=== PATIENT | male | born 1955 ===

== ENCOUNTER 2019-11-15 07:26 | Outpatient (REF) | payer MEDICARE, SELFPAY ==
[2019-11-15 12:03] LABS: Alanine Aminotransferase 21 U/L (0-40); Albumin Level 4.4 g/dL (3.5-5.0); Alkaline Phosphatase 91 U/L (39-117); Anion Gap 14 (12-20); Aspartate Amino Transferase 24 U/L (5-37); Bilirubin Total 0.5 mg/dL (0.0-1.0); Blood Urea Nitrogen 23 mg/dL (9-16); Calcium 9.1 mg/dL (8.4-10.2); Carbon Dioxide 29 mmol/L (22-29); Chloride 102 mmol/L (96-108); Cholesterol 124 mg/dL; Estimated Glomerular Filt Rate > 60; Glucose Fasting 97 mg/dL (60-99); HDL Cholesterol 52 mg/dL; LDL Cholesterol Calculated 58 mg/dl; Potassium 4.5 mmol/l (3.3-5.1); Sodium 140 mmol/L (135-145); Total Protein 7.3 g/dL (6.5-8.0); Triglycerides 71 mg/dL
[2019-11-15 12:13] LABS: TSH reflex Free T4 1.03 mIU/mL (0.32-4.0)
== END 2019-11-15 07:27 | disposition home or self-care (01) ==
LOC: HO.HMGCLDS 07:26
PROVIDERS: PCP Nurse Practitioner Family; Visit Provider Nurse Practitioner Family
DX: I10 Essential (primary) hypertension (principal)
CPT/HCPCS: 36415; 80053; 80061; 84443

== ENCOUNTER 2019-11-29 11:12 | Day surgery (SDC) | payer MEDICARE, SELFPAY ==
[2019-11-24 16:20] VITALS: BMI 37.2
--- NOTE | 2019-11-25 10:53 | HO.ANESPROP2 ---
Documented by User: Jessa Oliveira 11/26/19 10:15 HPI - Anesthesia Eval Consult details Narrative: 64yo M for Colonoscopy: Screening [facility], [facility] Past Medical History Medical History AAA (abdominal aortic aneurysm) Anemia Anxiety and depression BPH (benign prostatic hyperplasia) CAD (coronary artery disease) Diverticulosis GERD (gastroesophageal reflux disease) History of cardioversion Hx of skin cancer, basal cell Hyperlipemia Hypertension PAF (paroxysmal atrial fibrillation) PTSD (post-traumatic stress disorder) Sleep apnea Surgical History Surgical History H/O umbilical hernia repair History of cardiac radiofrequency ablation History of esophagogastroduodenoscopy (EGD) History of incision and drainage History of total left hip arthroplasty Hx of cardiac catheterization Hx of colonoscopy Hx of right knee surgery Hx of tonsillectomy Social History Social History Smoking Status: Former smoker Smoking Quit Date: 2011 Substance Use Frequency: Occasionally Advance Directives: No Advance Directives Information Provided: No Advance Directives on File: No Meds Allergies Allergy/AdvReac Type Severity Reaction Status Date / Time morphine [MORPHINE] Allergy Intermediate ANXIETY,AGITATION, Unverified 10/28/19 14:39 severe aggitation Home Medications Medication Instructions Recorded Confirmed Type lisinopril 10 mg PO DAILY 11/24/19 11/29/19 History omeprazole 20 mg PO DAILY 11/24/19 11/24/19 History rosuvastatin 1 tab PO DAILY 11/24/19 11/24/19 History Exam Exam Date and Time: November 25, 2019 1053 Height,Weight and Vital Signs: Height 6 ft 2 in Weight 131.542 kg Pertinent Lab Results Pertinent Lab Results: Laboratory Tests 07/13/19 11/15/19 10:12 07:38 WBC 8.1 Hgb 13.4 L Hct 40.0 L Plt Count 259 Sodium 140 Potassium 4.5 Chloride 102 Carbon Dioxide 29 BUN 23 H Creatinine 0.83 Narrative Narrative: EKG 08/2019: NSR with PAC, nonspec ST abn with QTC @437 ECHO 08/2019: LVEF 60-65%, mild LVH, impaired relax, mild biatrial enlargement, trivial AR Assessment and Plan Assessment Anesthesia Assessment: Chart Reviewed Documented by User: Allie Benz 11/29/19 12:31 PMFSH Past Medical History Medical History AAA (abdominal aortic aneurysm) Anemia Anxiety and depression BPH (benign prostatic hyperplasia) CAD (coronary artery disease) Diverticulosis GERD (gastroesophageal reflux disease) History of cardioversion Hx of skin cancer, basal cell Hyperlipemia Hypertension PAF (paroxysmal atrial fibrillation) PTSD (post-traumatic stress disorder) Sleep apnea Surgical History Surgical History H/O umbilical hernia repair History of cardiac radiofrequency ablation History of esophagogastroduodenoscopy (EGD) History of incision and drainage History of total left hip arthroplasty Hx of cardiac catheterization Hx of colonoscopy Hx of right knee surgery Hx of tonsillectomy Social History Social History Smoking Status: Former smoker Smoking Quit Date: 2011 Substance Use Frequency: Occasionally Advance Directives: No Advance Directives Information Provided: No Advance Directives on File: No Meds Allergies Allergy/AdvReac Type Severity Reaction Status Date / Time morphine [MORPHINE] Allergy Intermediate ANXIETY,AGITATION, Unverified 10/28/19 14:39 severe aggitation Home Medications Medication Instructions Recorded Confirmed Type lisinopril 10 mg PO DAILY 11/24/19 11/29/19 History omeprazole 20 mg PO DAILY 11/24/19 11/24/19 History rosuvastatin 1 tab PO DAILY 11/24/19 11/24/19 History Exam Airway Mallampati Class: III TM Dist: >3cm Neck ROM: Full Denture: Upper
[2019-11-29 11:37] VITALS: BP 106/76; PULSE 73; RESP 18; TEMP 36.8; O2SAT 97
[2019-11-29] MEDS: Lactated Ringers 1,000 ML 50 ML IVCONT (11:59)
[2019-11-29 13:34] VITALS: BP 103/62; PULSE 74; RESP 16; TEMP 36.7; O2SAT 96
--- NOTE | 2019-11-29 13:47 | OP_ITS ---
SURGEON: Gamaliel Abernathy MD INDICATIONS: The patient presents for followup of colorectal cancer screening, personal history of tubular adenoma of the colon, and family history of colon cancer. Full consent has been obtained from him for this, including risks of bleeding and perforation. PREOPERATIVE DIAGNOSIS: POSTOPERATIVE DIAGNOSIS: PROCEDURE PERFORMED: Colonoscopy to cecum and terminal ileum. ESTIMATED BLOOD LOSS: COMPLICATIONS: ANESTHESIA: Monitored anesthesia care. ASSISTANTS: SPECIMENS: PREOPERATIVE DIAGNOSES: Colorectal cancer screening, personal history of tubular adenoma of the colon, family history of colon cancer. POSTOPERATIVE DIAGNOSES: Colorectal cancer screening, personal history of tubular adenoma of the colon, family history of colon cancer, diverticulosis and internal hemorrhoids. DESCRIPTION OF PROCEDURE: The patient was placed in the left lateral decubitus position. The digital rectal exam revealed no abnormalities. The Olympus video pediatric colonoscope was entered into the rectum and advanced easily to the cecum. Once in the cecum, I did identify normal-appearing cecal pouch with appendiceal orifice and a normal-appearing ileocecal valve. The terminal ileum was cannulated and appeared normal. The scope was withdrawn back in the colon. The entire cecum and ileocecal valve appeared normal. The scope was slowly withdrawn assessing all mucosal surfaces carefully. For the most part, preparation was very good throughout the colon, although there were some areas of liquid stool, which were irrigated and washed away and suctioned as best as possible. I did not visualize any sign of polyps, colitis, nor angiodysplasia. There was a mild amount of sigmoid diverticulosis. In the rectum, scope was retroflexed visualizing small internal hemorrhoids, but no other pathology. The rectal mucosa appeared normal. The scope was straightened and withdrawn from the patient. He tolerated the procedure well and was returned to the recovery area in stable condition. IMPRESSION: 1. Mild sigmoid diverticulosis. 2. Internal hemorrhoids. PLAN: Given his previous history of tubular adenomas and family history of colon cancer, I would recommend a followup colonoscopy in 5 years for further screening. He will otherwise see me on a p.r.n. basis. He was advised to resume his Eliquis today. This has been discussed with his . MD VERITO Valderrama/TIFFANY / [phone]
[2019-11-29 13:49] VITALS: BP 121/81; PULSE 77; RESP 17; O2SAT 98
--- NOTE | 2019-11-29 14:08 | HO.POSTANES ---
Post Anesthesia Evaluation Post Anesthesia Evaluation Vital Signs: Vital Signs Temp Pulse Resp BP Pulse Ox 11/29/19 13:49 98.0 F 77 17 121/81 98 11/29/19 13:34 98.0 F 74 16 103/62 96 11/29/19 11:37 98.3 F 73 18 106/76 97 Anesthesia: Monitored Mental Status: Awake Pain Control: Satisfactory Nausea/Vomiting: None Hydration: Adequate Anesthesia-Related Issues: No Anes. Related Issues
--- NOTE | 2019-11-29 15:36 | PM.OP ---
Brief Operative Note Date of procedure: 11/29/19 Pre-op diagnosis: Screening Post-op diagnosis: other (Diverticulosis, Internal hemorrhoids) Procedure: Colonoscopy to cecum and TI Surgeon: Gamaliel Abernathy Anesthesia: MAC Estimated blood loss (mL): 5.0 Pathology: none sent Condition: stable Disposition: PACU
== END 2019-11-29 14:46 | disposition home or self-care (01) ==
PROVIDERS: PCP Nurse Practitioner Family; Visit Provider Internal Medicine
PROC: 0DJD8ZZ Inspection of Lower Intestinal Tract, Via Natural or Artificial Opening Endoscopic (ICD-10-PCS; CPT 45378; principal; 2019-11-29 12:20)
DX: Z12.11 Encounter for screening for malignant neoplasm of colon (principal); Z86.010 Personal history of colon polyps; Z80.0 Family history of malignant neoplasm of digestive organs; K57.30 Diverticulosis of large intestine without perforation or abscess without bleeding; K64.8 Other hemorrhoids; K21.9 Gastro-esophageal reflux disease without esophagitis; I10 Essential (primary) hypertension; E78.5 Hyperlipidemia, unspecified; I48.0 Paroxysmal atrial fibrillation; G47.33 Obstructive sleep apnea (adult) (pediatric); Z88.8 Allergy status to other drugs, medicaments and biological substances; Z79.01 Long term (current) use of anticoagulants; Z85.828 Personal history of other malignant neoplasm of skin; Z87.891 Personal history of nicotine dependence; Z79.899 Other long term (current) drug therapy
CPT/HCPCS: G0105

== ENCOUNTER → 2019-12-10 08:47 | Outpatient (BNVA) | payer MEDICARE, SELFPAY | PROVIDERS: PCP Nurse Practitioner Family; Referring Provider Nurse Practitioner Family; Visit Provider Internal Medicine Cardiovascular Disease | DX: I48.0 Paroxysmal atrial fibrillation (principal) | CPT/HCPCS: 93005 ==

== ENCOUNTER → 2020-02-29 08:12 | Outpatient (BNVA) | payer MEDICARE, SELFPAY | PROVIDERS: PCP Nurse Practitioner Family; Visit Provider Internal Medicine Cardiovascular Disease | DX: I48.0 Paroxysmal atrial fibrillation (principal); I25.10 Atherosclerotic heart disease of native coronary artery without angina pectoris; I10 Essential (primary) hypertension | CPT/HCPCS: 93005; 99212 ==

== ENCOUNTER 2020-03-01 10:33 | Outpatient (REF) | payer MEDICARE, SELFPAY ==
--- NOTE | 2020-03-01 10:42 | US_ITS ---
EXAMINATION: US VENOUS ULTRASOUND WITH DOPPLER LOWER EXTREMITY, BILATERAL CLINICAL INFORMATION: Localized swelling, mass and lump COMPARISON: None TECHNIQUE: Ultrasound of the deep veins is performed from the hip to the calf with compression sonography and color and pulse Doppler assessment. Spectral analysis with color-flow imaging is performed. FINDINGS: RIGHT: There is normal venous compression and respiratory variation and augmented flow. The visualized common femoral vein, superficial femoral vein, profunda femoral vein, popliteal vein, and the trifurcation region shows no evidence of deep venous thrombosis. There is no significant popliteal fossa cyst. LEFT: There is normal venous compression and respiratory variation and augmented flow. The visualized common femoral vein, superficial femoral vein, profunda femoral vein, popliteal vein, and the trifurcation region shows no evidence of deep venous thrombosis. There is no significant popliteal fossa cyst. No ultrasound abnormality is seen in the area of palpable abnormality in the lateral left upper thigh. US/US venous duplex LE BI IMPRESSION: No DVT demonstrated in the bilateral lower extremity.
== END 2020-03-01 10:34 | disposition home or self-care (01) ==
LOC: HO.HMGCX 10:33
PROVIDERS: PCP Nurse Practitioner Family; Visit Provider Nurse Practitioner Family
DX: R22.40 Localized swelling, mass and lump, unspecified lower limb (principal)
CPT/HCPCS: 93970

== ENCOUNTER 2020-08-05 09:53 | Emergency (ER) | payer OTHER, MEDICARE, SELFPAY ==
--- NOTE | ~2020-08-05 | XR_ITS ---
EXAMINATION: XR CHEST CLINICAL INFORMATION: Chest pain. COMPARISON: None TECHNIQUE: 2 views of the chest were obtained. FINDINGS: No significant abnormality is noted involving the heart, lungs, mediastinum, bony thorax or soft tissues. XR/XR chest 2V IMPRESSION: Unremarkable chest examination.
[2020-08-05 09:55] VITALS: BP 141/66; PULSE 86; RESP 18; TEMP 36.6; O2SAT 98; BMI 38.0
--- NOTE | 2020-08-05 10:00 | ECG_ITS ---
Test Reason : CP Blood Pressure : / mmHG Vent. Rate : 079 BPM Atrial Rate : 079 BPM P-R Int : 162 ms QRS Dur : 092 ms QT Int : 396 ms P-R-T Axes : 011 036 027 degrees QTc Int : 454 ms Normal sinus rhythm Normal ECG No previous ECGs available Referred By: Yaima Mckay Electronically Signed By:Prieto Escalona
--- NOTE | 2020-08-05 10:01 | ED.ARRPALP ---
HPI - Arrhythmia/Palpitations General Chief Complaint: Arrhythmia/Palpitations Stated Complaint: CHEST STING DOWN L LEG Time Seen by Provider: 08/05/20 09:59 Source: patient Mode of arrival: ambulatory Limitations: no limitations History of Present Illness HPI narrative: 64 yo male with past medical history of GERD, HTN, afib on eliquis, HLD, anemia, anxiety, depression, PTSD, VIDYA, AAA here with complaints of episodes of chest stinging x 1 hr which started when he was working in the yard. Five episodes which come on and last a second and self-resolve. No associated SOB, nasuea, diaphoresis, dizziness, chest pain or abdominal pain. Does have chronic back pain which is lower and unchanged from previous. Also c/o of left upper thigh pinching which patients has had intermittent for months with a negative US for DVT. No recent travel, no sick contact. Fully vaccinated in April for COVID with Moderna. Related Data Home Medications Medication Instructions Recorded Confirmed lisinopril 10 mg PO DAILY 11/24/19 02/29/20 omeprazole 20 mg PO DAILY 11/24/19 02/29/20 Previous Rx's Medication Instructions Recorded apixaban 5 mg tablet 5 mg PO BID 90 Days #180 tab 11/26/19 sertraline 50 mg tablet 50 mg PO DAILY 90 Days #90 tab 11/28/19 CPAP #1 ea 12/30/19 dronedarone 400 mg tablet 400 mg PO BID #180 tab 01/25/20 cyclobenzaprine 10 mg tablet 10 mg PO TID PRN #20 tab 03/01/20 rosuvastatin 20 mg tablet 20 mg PO DAILY #90 tab 03/10/20 Allergies Allergy/AdvReac Type Severity Reaction Status Date / Time morphine [MORPHINE] Allergy Intermediate ANXIETY,AGITATION, Verified 03/02/20 11:01 severe aggitation Review of Systems Review of Systems: Yes all other systems are reviewed and are negative Constitutional: Constitutional: Reports no additional constitutional complaints, Denies body ache(s), Denies chills, Denies fever(s), Denies headache(s) and Denies weakness Eyes: Eyes: Reports no additional eye complaints and Denies change in vision ENT: Reports system reviewed and no additional complaints, except as documented, Denies dizziness, Denies headache(s), Denies nasal congestion, Denies nasal discharge and Denies neck pain Cardiovascular: Cardiovascular: Reports no additional cardiovascular complaints, Reports chest pain, Denies leg edema and Denies dyspnea Respiratory: Respiratory: Reports no additional respiratory complaints, Denies cough and Denies dyspnea Gastrointestinal: Gastrointestinal: Reports no additional gastrointestinal complaints, Denies abdominal pain, Denies diarrhea, Denies nausea and Denies vomiting Genitourinary: Genitourinary: Denies urinary incontinence Musculoskeletal: Musculoskeletal: Reports no additional musculoskeletal complaints, Reports back pain, Denies arthralgias, Denies joint swelling, Denies neck pain, Denies numbness and Denies tingling Comments: leg pain Integumentary/Breasts: Skin/Breast: Reports system reviewed and no additional complaints, except as docu and Denies rash Neurologic: Reports system reviewed and no additional complaints, except as documented, Denies Abnormal speech present, Denies dizziness, Denies headache(s), Denies numbness, Denies tingling and Denies weakness PMFSH Past Medical History Attestation statement: The following information was validated with the patient. Source: old records reviewed and nursing notes reviewed Medical History AAA (abdominal aortic aneurysm) Anemia Anxiety and depression BPH (benign prostatic hyperplasia) CAD (coronary artery disease) Diverticulosis GERD (gastroesophageal reflux disease) History of cardioversion Hx of skin cancer, basal cell Hyperlipemia Hypertension PAF (paroxysmal atrial fibrillation) PTSD (post-traumatic stress disorder) Skin cancer Sleep apnea Surgical History H/O umbilical hernia repair History of cardiac radiofrequency ablation History of esophagogastroduodenoscopy (EGD) History of incision and drainage History of total left hip arthroplasty Hx of cardiac catheterization Hx of colonoscopy Hx of right knee surgery Hx of tonsillectomy Family History Family History Father Esophageal cancer Mother Esophageal cancer Social History Social History Advance Directives: Yes Advance Directives Information Provided: No Advance Directives on File: No Physical Exam Vital Signs: Vital Signs: Last Vital Signs Temp 98.5 F 08/05/20 14:00 Pulse 63 08/05/20 14:00 Resp 18 06/26/21 14:00 BP 125/67 08/05/20 14:00 Pulse Ox 98 08/05/20 14:00 Body Mass Index 38.0 Const: General: cooperative, healthy appearing, comfortable and no acute distress Orientation/consciousness: patient oriented x3 Limitations: no limitations HENMT: Head: Yes normal to inspection Ears: hearing grossly normal bilaterally General nose exam: Normal external nose present Face and sinus: Yes normal facial exam Mouth: Normal oral and palatal mucosa present Throat: Yes posterior oropharynx normal Eyes: General: appearance normal, both eyes and all related structures Pupils: Equal, round and reactive pupils present Neck: Neck: Yes normal visual inspection Chest: Chest palpation & inspection: normal inspection of the chest Resp: Effort & Inspection: normal respiratory effort Auscultation: clear to auscultation bilaterally Cardio: Rate: regular rate Rhythm: regular rhythm Peripheral pulses: Peripheral pulses 2+ throughout GI: Inspection: Yes normal to inspection Palpation (GI): Soft to palpation and nontender Auscultation: normal bowel sounds Back/Spine/Pelvis: Thoracic/Lumbar Spine: thoracic and lumbar spine normal to inspection Skin: General skin exam: no rashes or lesions noted Neuro: General: patient oriented x3, no focal motor deficits and normal sensation to monofilament Cranial nerves: Yes Equal, round and reactive pupils present Cognition (Neuro): normal cognition Speech: No Abnormal speech present Gait exam (Neuro): Normal gait present Motor exam (neuro): 5/5 motor strength present throughout Extrem: General: Yes normal to inspection, Yes no pedal edema and Yes no calf tenderness Course Course Course Narrative: 64 yo male here with complaints of intermittent chest pain described as a sting x 1 hr. No associated symptoms. Also c/o chronic low back pain, left upper thigh pain for > 1yr in the setting of recent negative US for DVT. Will need labs including troponin x 2, EKG, CXR. 1400-Troponin x 2 flat. All other labs unremarkable. CXR and EKG with no acute finding. No additional episodes here in the ER. Reviewed worrisome signs symptoms of when to return to the emergency department. Comfortable discharge home. MDM - Arrhythmia/Palpitations MDM Narrative Medical decision making narrative: acs- Less likely with atypical pain, troponin x2 flat and negative EKG Differential Diagnosis Differential diagnosis: Likely palpitations, anxiety and artial fibrillation Medical Records Attestation: I reviewed the patient's medical records. Lab Data Attestation: I reviewed the patient's lab results. Result diagrams: 08/05/20 10:37 08/05/20 10:36 Labs: Lab Results 08/05/20 08/05/20 08/05/20 Range/Units 10:36 10:36 10:36 WBC (4.8-10.8) X10*3/uL RBC (4.60-5.80) X10*6/uL Hgb (14.0-18.0) g/dl Hct (42-52) % MCV (80-98) fL MCH (27.0-33.0) pg MCHC (31.0-36.0) g/dl RDW (11.0-16.0) % Plt Count (160-400) X10*3/uL MPV (9.4-12.4) fL Immature Gran % (Auto) (0.0-0.4) % Neut % (Auto) (45-73) % Lymph % (Auto) (20-40) % [place] % (Auto) (2-11) % Eos % (Auto) (0-4) % Baso % (Auto) (0-2) % Lymph # (Auto) (1.2-4.9) X10*3/uL [place] # (Auto) (0.1-1.2) X10*3/uL Eos # (Auto) (0.0-0.4) X10*3/uL Baso # (Auto) (0.0-0.2) X10*3/uL Abs Immat Gran (auto) (0.00-0.03) X10*3/uL Absolute Neuts (auto) (2.0-8.3) X10*3/uL Absolute Nucleated RBC (0.0-0.012) X10*3/uL Nucleated RBC % (auto) (0.0-0.2) /100WBC PT 14.7 H (10.8-13.0) SEC INR 1.2 H (0.9-1.1) Sodium 139 (135-145) mmol/L Potassium 4.0 (3.3-5.1) mmol/L Chloride 104 (96-108) mmol/L Carbon Dioxide 30 H (22-29) mmol/L Anion Gap 9 L (12-20) BUN 18 H (9-16) mg/dL Creatinine 0.77 (0.5-1.4) mg/dL Estim Creat Clear Calc 137.5 Estimated GFR > 60 Random Glucose 128 H (60-115) mg/dL Calcium 9.1 (8.4-10.2) mg/dL Magnesium 1.8 (1.6-2.6) mg/dL Total Bilirubin 0.3 (0.0-1.0) mg/dL Direct Bilirubin < 0.2 (0.0-0.5) mg/dL AST 19 (5-37) U/L ALT 15 (0-40) U/L Alkaline Phosphatase 81 (39-117) U/L Troponin I High Sens (<3.5-35.0) ng/L Total Protein 6.8 (6.5-8.0) g/dL Albumin 4.1 (3.5-5.0) g/dL 08/05/20 08/05/20 08/05/20 Range/Units 10:36 10:37 13:18 WBC 7.5 (4.8-10.8) X10*3/uL RBC 4.00 L (4.60-5.80) X10*6/uL Hgb 12.3 L (14.0-18.0) g/dl Hct 37.1 L (42-52) % MCV 92.8 (80-98) fL MCH 30.8 (27.0-33.0) pg MCHC 33.2 (31.0-36.0) g/dl RDW 13.1 (11.0-16.0) % Plt Count 229 (160-400) X10*3/uL MPV 9.8 (9.4-12.4) fL Immature Gran % (Auto) 0.4 (0.0-0.4) % Neut % (Auto) 66.2 (45-73) % Lymph % (Auto) 25.4 (20-40) % [place] % (Auto) 6.7 (2-11) % Eos % (Auto) 0.8 (0-4) % Baso % (Auto) 0.5 (0-2) % Lymph # (Auto) 1.9 (1.2-4.9) X10*3/uL [place] # (Auto) 0.5 (0.1-1.2) X10*3/uL Eos # (Auto) 0.1 (0.0-0.4) X10*3/uL Baso # (Auto) 0.0 (0.0-0.2) X10*3/uL Abs Immat Gran (auto) 0.03 (0.00-0.03) X10*3/uL Absolute Neuts (auto) 4.9 (2.0-8.3) X10*3/uL Absolute Nucleated RBC 0.000 (0.0-0.012) X10*3/uL Nucleated RBC % (auto) 0.0 (0.0-0.2) /100WBC PT (10.8-13.0) SEC INR (0.9-1.1) Sodium (135-145) mmol/L Potassium (3.3-5.1) mmol/L Chloride (96-108) mmol/L Carbon Dioxide (22-29) mmol/L Anion Gap (12-20) BUN (9-16) mg/dL Creatinine (0.5-1.4) mg/dL Estim Creat Clear Calc Estimated GFR Random Glucose (60-115) mg/dL Calcium (8.4-10.2) mg/dL Magnesium (1.6-2.6) mg/dL Total Bilirubin (0.0-1.0) mg/dL Direct Bilirubin (0.0-0.5) mg/dL AST (5-37) U/L ALT (0-40) U/L Alkaline Phosphatase (39-117) U/L Troponin I High Sens 5.7 5.2 (<3.5-35.0) ng/L Total Protein (6.5-8.0) g/dL Albumin (3.5-5.0) g/dL Imaging Data Chest x-ray: Attestation: I personally reviewed and interpreted this imaging study as follows: Radiologist's impression: EXAMINATION: XR CHEST CLINICAL INFORMATION: Chest pain. COMPARISON: None TECHNIQUE: 2 views of the chest were obtained. FINDINGS: No significant abnormality is noted involving the heart, lungs, mediastinum, bony thorax or soft tissues. XR/XR chest 2V IMPRESSION: Unremarkable chest examination. ECG Data Attestation: I personally reviewed and interpreted this ECG as follows: ECG interpretation date: 08/05/20 ECG interpretation time: 10:09 Interpretation: Normal sinus rhythm with a rate of 79, normal [place], normal QRS, normal QTC Discharge Plan Discharge Clinical Impression: Atypical chest pain Patient Disposition: Home, Self-Care Instructions: Chest Wall Pain (ED) Additional Instructions: Your chest x-ray, EKG and labs are all unremarkable. Follow-up with your PCP Prescriptions: No Action Eliquis 5 mg tablet 5 mg PO BID 90 Days Qty: 180 RF: 3 sertraline 50 mg tablet 50 mg PO DAILY 90 Days Qty: 90 RF: 2 (DME) CPAP See Rx Instructions .Route .MEDSUPPLY Qty: 1 RF: 0 dronedarone [Multaq] 400 mg tablet 400 mg PO BID Qty: 180 RF: 1 cyclobenzaprine 10 mg tablet 10 mg PO TID PRN (Reason: muscle spasm) Qty: 20 RF: 0 rosuvastatin 20 mg tablet 20 mg PO DAILY Qty: 90 RF: 1 lisinopril 10 mg Tablet 10 mg PO DAILY RF: 0 omeprazole 20 mg Tablet,Delayed Release (Dr/Ec) 20 mg PO DAILY RF: 0 Referrals: Vijay Jaramillo FNP-DAYO [Primary Care Provider] - 2 days Cristopher Schuster MD [Physician] - 2 weeks (as scheduled ) Interventions: ED Discharge Assessment Last Done: 08/05/20 14:04
[2020-08-05 10:41] LABS: MANUAL DIFF FLAG NO
[2020-08-05 10:49] LABS: INTERNATIONAL NORM RATIO 1.2 (0.9-1.1); Prothrombin Time 14.7 SEC (10.8-13.0)
[2020-08-05 10:51] LABS: Basophils Percent Auto 0.5 % (0-2); Eosinophils Absolute Auto 0.1 X10*3/uL (0.0-0.4); Eosinophils Percent Auto 0.8 % (0-4); Hematocrit 37.1 % (42-52); Hemoglobin 12.3 g/dl (14.0-18.0); Imm Gran Abs Auto 0.03 X10*3/uL (0.00-0.03); Imm Gran Pct Auto 0.4 % (0.0-0.4); Lymphocytes Absolute Auto 1.9 X10*3/uL (1.2-4.9); Lymphocytes Percent Auto 25.4 % (20-40); Mean Corpuscular HGB Conc 33.2 g/dl (31.0-36.0); Mean Corpuscular Hemoglobin 30.8 pg (27.0-33.0); Mean Corpuscular Volume 92.8 fL (80-98); Mean Platelet Volume 9.8 fL (9.4-12.4); Monocytes Absolute Auto 0.5 X10*3/uL (0.1-1.2); Monocytes Percent Auto 6.7 % (2-11); Neutrophils Absolute Auto 4.9 X10*3/uL (2.0-8.3); Neutrophils Percent Auto 66.2 % (45-73); Platelet Count 229 X10*3/uL (160-400); Red Cell Distribution Width 13.1 % (11.0-16.0); White Blood Count 7.5 X10*3/uL (4.8-10.8)
[2020-08-05 11:16] LABS: Magnesium 1.8 mg/dL (1.6-2.6)
[2020-08-05 11:19] VITALS: BP 113/55; PULSE 69; RESP 19; TEMP 36.7; O2SAT 95
[2020-08-05 11:19] LABS: Troponin-I High Sensitivity 5.7 ng/L (<3.5-35.0)
[2020-08-05 11:20] LABS: Alanine Aminotransferase 15 U/L (0-40); Albumin Level 4.1 g/dL (3.5-5.0); Alkaline Phosphatase 81 U/L (39-117); Anion Gap 9 (12-20); Aspartate Amino Transferase 19 U/L (5-37); Bilirubin Direct < 0.2 mg/dL (0.0-0.5); Bilirubin Total 0.3 mg/dL (0.0-1.0); Blood Urea Nitrogen 18 mg/dL (9-16); Calcium 9.1 mg/dL (8.4-10.2); Carbon Dioxide 30 mmol/L (22-29); Chloride 104 mmol/L (96-108); Creatinine Clr Calc Pharmacy 137.5; Estimated Glomerular Filt Rate > 60; Glucose Random 128 mg/dL (60-115); Sodium 139 mmol/L (135-145); Total Protein 6.8 g/dL (6.5-8.0)
[2020-08-05 12:43] VITALS: BP 125/67; PULSE 64; RESP 18; TEMP 36.8; O2SAT 96
[2020-08-05 13:58] LABS: Troponin-I High Sensitivity 5.2 ng/L (<3.5-35.0)
[2020-08-05 14:00] VITALS: BP 125/67; PULSE 63; RESP 18; TEMP 36.9; O2SAT 98
== END 2020-08-05 14:36 | disposition home or self-care (01) ==
PROVIDERS: Nurse Practitioner Family; Emergency Provider Emergency Medicine; PCP Nurse Practitioner Family
DX: R07.89 Other chest pain (principal); M79.652 Pain in left thigh; I10 Essential (primary) hypertension; I25.10 Atherosclerotic heart disease of native coronary artery without angina pectoris; I48.0 Paroxysmal atrial fibrillation; D64.9 Anemia, unspecified; Z79.01 Long term (current) use of anticoagulants; Z79.899 Other long term (current) drug therapy
CPT/HCPCS: 36415; 71046; 80048; 80076; 83735; 84484; 85025; 85610; 93005; 99284

== ENCOUNTER 2020-08-30 07:54 | Outpatient (REF) | payer MEDICARE, SELFPAY ==
--- NOTE | ~2020-08-30 | XR_ITS ---
EXAMINATION: XR LUMBOSACRAL SPINE CLINICAL INFORMATION: M54.5 - Low back pain COMPARISON: Radiographs lumbar spine 03/07/2015 TECHNIQUE: Three views of the lumbosacral spine. FINDINGS: There are 5 nonrib-bearing lumbar vertebrae within normal height and with normal lumbar lordosis. There is mild dextrocurvature upper lumbar spine again noted. There is no lumbar vertebral compression or destructive process. Again, there are multilevel degenerative changes with endplate sclerosis and multilevel vertebral body spurring. Degenerative disc changes are greatest at L5-S1 with disc narrowing and endplate sclerosis and bridging osteophyte and also present at L1-L2 and L2-L3. There is mild facet degeneration L4-S1. There is borderline grade 0-1 spondylolisthesis at L4-L5, new since 2016, likely related to the degenerative changes. The SI joints and visualized sacrum are unremarkable. XR/XR lumbar spine 2-3V IMPRESSION: 1. Multilevel degenerative disc changes, lower lumbar facet degeneration. 2. Borderline grade 0-1 spondylolisthesis L4-L5. 3. No vertebral compression or destructive process.
== END 2020-08-30 07:55 | disposition home or self-care (01) ==
LOC: HO.HMGCX 07:54
PROVIDERS: PCP Nurse Practitioner Family; Visit Provider Nurse Practitioner Family
DX: M54.5 Low back pain (principal)
CPT/HCPCS: 72100

== ENCOUNTER → 2020-08-31 12:58 | Outpatient (BNVA) | payer MEDICARE, SELFPAY | PROVIDERS: PCP Nurse Practitioner Family; Referring Provider Nurse Practitioner Family; Visit Provider Internal Medicine Cardiovascular Disease | DX: I48.0 Paroxysmal atrial fibrillation (principal); I25.10 Atherosclerotic heart disease of native coronary artery without angina pectoris; I10 Essential (primary) hypertension; Z79.899 Other long term (current) drug therapy | CPT/HCPCS: 93005; 99212 ==

== ENCOUNTER 2020-09-28 07:00 | Outpatient (RCR) | payer MEDICARE, SELFPAY ==
--- NOTE | 2020-09-05 08:11 | MHC.PT.EP ---
[facility] [place] Office [place] Office [place] Office [address] Aletha Burrell [address] [phone] F: [phone] F: [phone] F: [phone] F: [phone] Physical Therapy Plan of Care Date of Evaluation: Date of Surgery: Diagnosis: low back pain - left sided. Assessment: Patient is a 64 year old R handed male who presents with s/s consistent with low back pain. He is retired but does stay active in yard and at the gym. He is trying to lose weight and manage his health well. Patient past medical history includes AFib, blood thinners, CHF, skin cancer, AAA, cardiac ablation. Current impairments include pain, ROM, strength, safety, independence, activity tolerance and functional mobility. Functional limitations include decreased ability to walk, stand, transfer, negotiate stairs, and perform weight bearing activities.. Patient is motivated with good rehab potential. Skilled PT will address impairments and functional limitations in order to achieve goals. 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 Manual therapy to restore motion and function. Therapeutic exercise to improve strength and flexibility. Neuromuscular re-education for posture and balance. Therapeutic activities to return to functional activities of daily living. Electronically signed by: Adán Faust, PT Please sign and return to therapist. Thank you for your referral.
--- NOTE | 2021-01-16 13:31 | MHC.PT.DC ---
[facility] [place] Office [place] Office [place] Office [address] Aletha Burrell [address] [phone] F: [phone] F: [phone] F: [phone] F: [phone] Physical Therapy Discharge Report Diagnosis: low back pain - left sided. Date of Surgery: Date of Evaluation: 09/05/20 Date of Discharge: 09/28/20 Treatments to Date: 3 Cancellations to Date: 0 No Shows to Date: 0 Discharge Status: Independent with HEP Discharge Summary: 09/28/20: Pt progressed well over the course of skilled PT making progress on impairments and functional limitations resulting in an improved quality of life. Pt is I with HEP and appropriate to d/c to HEP at this time. Electronically signed by: Adán Faust, PT Please sign and return to therapist. Thank you for your referral.
== END 2021-01-16 13:31 | disposition home or self-care (01) ==
LOC: HO.PTCHIC 07:00
PROVIDERS: PCP Nurse Practitioner Family; Visit Provider Nurse Practitioner Family
DX: M54.5 Low back pain (principal)
CPT/HCPCS: 97110; 97162

== ENCOUNTER → 2020-11-23 08:54 | Outpatient (BNVA) | payer MEDICARE, SELFPAY | PROVIDERS: PCP Nurse Practitioner Family; Referring Provider Nurse Practitioner Family; Visit Provider Internal Medicine Cardiovascular Disease ==

== ENCOUNTER → 2021-02-27 08:08 | Outpatient (BNVA) | payer MEDICARE, SELFPAY | PROVIDERS: PCP Nurse Practitioner Family; Referring Provider Nurse Practitioner Family; Visit Provider Internal Medicine Cardiovascular Disease | DX: I48.0 Paroxysmal atrial fibrillation (principal); I25.10 Atherosclerotic heart disease of native coronary artery without angina pectoris | CPT/HCPCS: 93005; 99212 ==

== ENCOUNTER 2021-03-07 06:08 | Outpatient (REF) | payer MEDICARE, SELFPAY ==
[2021-03-07 11:48] LABS: Appearance Urine CLEAR; Color Urine YELLOW; Glucose Urine UA NEG (NEG); Leukocyte Esterase Urine NEG (NEG); Nitrite Urine NEG (NEG); PH 7.5 (5.0-8.0); Specific Gravity - Urine 1.015 (1.005-1.025); Urine Blood NEG (NEG); Urine Ketones NEG (NEG); Urine Protein NEG (NEG-TRACE)
[2021-03-07 12:16] LABS: Alanine Aminotransferase 23 U/L (0-40); Albumin Level 4.2 g/dL (3.5-5.0); Alkaline Phosphatase 79 U/L (39-117); Anion Gap 10 (12-20); Aspartate Amino Transferase 24 U/L (5-37); Bilirubin Total 0.2 mg/dL (0.0-1.0); Blood Urea Nitrogen 19 mg/dL (9-16); Calcium 9.2 mg/dL (8.4-10.2); Carbon Dioxide 30 mmol/L (22-29); Chloride 104 mmol/L (96-108); Cholesterol 133 mg/dL; Estimated Glomerular Filt Rate > 60; Glucose Fasting 109 mg/dL (60-99); HDL Cholesterol 45 mg/dL; LDL Cholesterol Calculated 71 mg/dl; Potassium 4.1 mmol/L (3.3-5.1); Sodium 140 mmol/L (135-145); Total Protein 7.3 g/dL (6.5-8.0); Triglycerides 88 mg/dL
[2021-03-07 12:17] LABS: Prostate Specific Antigen Scr 0.35 ng/mL (<0.05-4.0); TSH reflex Free T4 1.02 uIU/mL (0.32-4.0)
== END 2021-03-07 06:09 | disposition home or self-care (01) ==
LOC: HO.HMGCLDS 06:08
PROVIDERS: PCP Nurse Practitioner Family; Visit Provider Internal Medicine Cardiovascular Disease
DX: I48.0 Paroxysmal atrial fibrillation (principal); F33.9 Major depressive disorder, recurrent, unspecified; I25.10 Atherosclerotic heart disease of native coronary artery without angina pectoris; Z12.5 Encounter for screening for malignant neoplasm of prostate
CPT/HCPCS: 36415; 80048; 80053; 80061; 81003; 84153; 84443

== ENCOUNTER → 2021-04-10 14:29 | Outpatient (BNVA) | payer MEDICARE, SELFPAY | PROVIDERS: PCP Nurse Practitioner Family; Visit Provider Surgery Vascular Surgery | DX: I83.12 Varicose veins of left lower extremity with inflammation (principal) | CPT/HCPCS: 99202 ==

== ENCOUNTER 2021-04-18 09:46 | Outpatient (REF) | payer MEDICARE, SELFPAY ==
--- NOTE | ~2021-04-18 | US_ITS ---
EXAMINATION: US LOWER EXTREMITY VENOUS (REFLUX EXAM), BILATERAL CLINICAL INDICATION: This is a 65-year-old male with venous insufficiency and reflux. COMPARISON: None. TECHNIQUE: Color flow triplex imaging and compression Doppler was performed to evaluate both the deep and the superficial systems bilaterally. To evaluate the superficial system, the examination was performed in the upright position. Color-flow Doppler ultrasound and compression ultrasound were utilized. In addition, maneuvers were utilized to demonstrate reflux. FINDINGS: 1. DEEP VENOUS ULTRASOUND OF THE RIGHT LOWER EXTREMITY: Common Femoral Vein: Compressible, normal respiratory variation and augmented flow. Femoral vein: Compressible, normal color flow and augmentation. Popliteal Vein: Compressible, normal augmentation. Deep Reflux: There is no evidence of reflux in the deep system in either the common femoral vein or the popliteal vein. There is no evidence of a Sesay's cyst. 2. SUPERFICIAL ULTRASOUND WITH DOPPLER OF RIGHT LOWER EXTREMITY: GREAT SAPHENOUS VEIN: Saphenofemoral Junction: 0.7 cm. There is no reflux. Mid Thigh: 0.4 cm. The reflux time is 492 ms. Above Knee: 0.4 cm. There is no reflux. Below Knee: 0.2 cm. There is no reflux. Mid Calf: 0.2 cm. There is no reflux. Ankle: 0.3 cm. The reflux time is 1844 ms. GSV REFLUX: There is no reflux at the saphenofemoral junction. There is isolated reflux as noted. DUPLICATED GREAT SAPHENOUS VEIN: There is a 0.4 cm duplicated lateral great saphenous vein without reflux. SMALL SAPHENOUS VEIN: Proximal: 0.4 cm Distal: 0.4 cm SSV REFLUX: No evidence of reflux. VEIN OF GIACOMINI: None Imaged. PERFORATORS: There is a 0.4 cm mid calf sanitation inspector without reflux. VARICOSITIES: There is a 0.3 cm mid thigh varicose vein with 780 ms of reflux. 3. DEEP VENOUS ULTRASOUND OF THE LEFT LOWER EXTREMITY: Common Femoral Vein: Compressible, normal respiratory variation and augmented flow. Femoral Vein: Compressible, normal color flow and augmentation. Popliteal Vein: There is reflux in the popliteal vein of 2006 are 96 ms. There is no reflux above this level. Deep Reflux: There is evidence of reflux in the deep system but at the popliteal vein. There is no evidence of a Sesay's cyst. 4. SUPERFICIAL ULTRASOUND WITH DOPPLER OF LEFT LOWER EXTREMITY: GREAT SAPHENOUS VEIN: Saphenofemoral Junction: 0.7 cm. There is no reflux. Mid Thigh: 1.0 cm. The reflux time is 3380 ms. Above Knee: 0.5 cm. The reflux time is 3396 ms. Below Knee: 0.4 cm. The reflux time is 3064 ms. Mid Calf: 0.3 cm. There is no reflux. Ankle: 0.3 cm. There is no reflux. GSV REFLUX: There is no reflux at the saphenofemoral junction. Reflux begins in the mid thigh and extends down below the knee. DUPLICATED GREAT SAPHENOUS VEIN: There is a 0.5 cm duplicated lateral great saphenous vein with 3004 and 64 ms of reflux. SMALL SAPHENOUS VEIN: Proximal: 0.1 cm Distal: 0.1 cm SSV REFLUX: No evidence of reflux. VEIN OF GIACOMINI: None Imaged. PERFORATORS: There are 0.2 cm proximal calf perforators with greater than 3 seconds of reflux. VARICOSITIES: There are 0.3 cm mid thigh varicose veins with greater than 3 seconds of reflux. 1.1 cm varicose veins are seen at the knee with greater than 3 seconds of reflux. US/US venous duplex LE BI IMPRESSION: 1. There is a patent right great saphenous vein without reflux at the saphenofemoral junction. There are isolated areas of reflux seen. 2. There is a patent right small saphenous vein without evidence of reflux. 3. There are right mid thigh 0.3 cm varicose veins with 780 ms of reflux. 4. There is a patent left great saphenous vein with greater than 3 seconds of reflux beginning in the mid thigh and extending below the knee. There is not reflux at the saphenofemoral junction. 5. There is a patent duplicated lateral left great saphenous vein with greater than 3 seconds of reflux. Reflux is seen at the saphenofemoral junction. 6. There is a patent left small saphenous vein without evidence of reflux. 7. There is left popliteal deep vein reflux.
== END 2021-04-18 09:47 | disposition home or self-care (01) ==
LOC: HO.US 09:46
PROVIDERS: PCP Nurse Practitioner Family; Visit Provider Surgery Vascular Surgery
DX: I83.12 Varicose veins of left lower extremity with inflammation (principal)
CPT/HCPCS: 93970

== ENCOUNTER → 2021-04-23 10:11 | Outpatient (BNVA) | payer MEDICARE, SELFPAY | PROVIDERS: PCP Nurse Practitioner Family; Visit Provider Surgery Vascular Surgery | DX: I83.12 Varicose veins of left lower extremity with inflammation (principal) | CPT/HCPCS: 99212 ==

== ENCOUNTER → 2021-05-11 10:16 | Outpatient (BNVA) | payer MEDICARE, SELFPAY | PROVIDERS: PCP Nurse Practitioner Family; Visit Provider Surgery Vascular Surgery | DX: I83.12 Varicose veins of left lower extremity with inflammation (principal) | CPT/HCPCS: 36475 ==

== ENCOUNTER 2021-05-14 15:18 | Outpatient (REF) | payer MEDICARE, SELFPAY ==
--- NOTE | ~2021-05-14 | US_ITS ---
EXAMINATION: US VENOUS ULTRASOUND WITH DOPPLER LOWER EXTREMITY, LEFT CLINICAL INFORMATION: Pain in the left leg status post left greater saphenous vein RFA COMPARISON: None TECHNIQUE: Ultrasound of the deep veins is performed from the hip to the calf with compression sonography and color and pulse Doppler assessment. Spectral analysis with color-flow imaging is performed. FINDINGS: There is normal venous compression and respiratory variation and augmented flow. The visualized common femoral vein, superficial femoral vein, profunda femoral vein, popliteal vein, and the trifurcation region shows no evidence of deep venous thrombosis. There is no significant popliteal fossa cyst. Status post treatment of the greater saphenous vein with thrombus extending 3.2 cm from the femoral vein. If the patient's symptoms persist, followup ultrasound in 5 days 7 days might be of value to exclude proximal propagation from a non-visualized calf vein. US/US venous duplex LE IMPRESSION: No DVT demonstrated in the left lower extremity.
== END 2021-05-14 15:19 | disposition home or self-care (01) ==
LOC: HO.HMGCX 15:18
PROVIDERS: Visit Provider Surgery Vascular Surgery
DX: M79.605 Pain in left leg (principal); Z98.890 Other specified postprocedural states
CPT/HCPCS: 93971

== ENCOUNTER → 2021-05-24 13:12 | Outpatient (BNVA) | payer MEDICARE, SELFPAY | PROVIDERS: PCP Nurse Practitioner Family; Visit Provider Surgery Vascular Surgery | DX: I83.12 Varicose veins of left lower extremity with inflammation (principal); Z98.890 Other specified postprocedural states | CPT/HCPCS: 99212 ==

== ENCOUNTER → 2021-05-29 08:34 | Outpatient (BNVA) | payer MEDICARE, SELFPAY | PROVIDERS: PCP Nurse Practitioner Family; Referring Provider Nurse Practitioner Family; Visit Provider Internal Medicine Cardiovascular Disease | DX: I48.0 Paroxysmal atrial fibrillation (principal); R94.31 Abnormal electrocardiogram [ECG] [EKG] | CPT/HCPCS: 93005 ==

== ENCOUNTER → 2021-06-08 12:28 | Outpatient (BNVA) | payer MEDICARE, SELFPAY | PROVIDERS: PCP Nurse Practitioner Family; Visit Provider Surgery Vascular Surgery | DX: I83.12 Varicose veins of left lower extremity with inflammation (principal) | CPT/HCPCS: 37766 ==

== ENCOUNTER → 2021-06-21 13:52 | Outpatient (BNVA) | payer MEDICARE, SELFPAY | PROVIDERS: PCP Nurse Practitioner Family; Visit Provider Surgery Vascular Surgery | DX: I83.12 Varicose veins of left lower extremity with inflammation (principal) | CPT/HCPCS: 99212 ==

== ENCOUNTER → 2021-08-28 08:31 | Outpatient (BNVA) | payer MEDICARE, SELFPAY | PROVIDERS: PCP Nurse Practitioner Family; Referring Provider Nurse Practitioner Family; Visit Provider Internal Medicine Cardiovascular Disease | DX: Z71.1 Person with feared health complaint in whom no diagnosis is made (principal) | CPT/HCPCS: 93005 ==

== ENCOUNTER 2021-09-12 08:23 | Outpatient (REF) | payer MEDICARE, SELFPAY ==
[2021-09-12 11:27] LABS: MANUAL DIFF FLAG NO
[2021-09-12 11:41] LABS: Basophils Absolute Auto 0.1 X10*3/uL (0.0-0.2); Basophils Percent Auto 0.7 % (0-2); Eosinophils Absolute Auto 0.1 X10*3/uL (0.0-0.4); Eosinophils Percent Auto 1.7 % (0-4); Hematocrit 39.4 % (42.0-52.0); Hemoglobin 13.3 g/dl (14.0-18.0); Imm Gran Abs Auto 0.01 X10*3/uL (0.00-0.03); Imm Gran Pct Auto 0.1 % (0.0-0.4); Lymphocytes Percent Auto 27.4 % (20-40); Mean Corpuscular HGB Conc 33.8 g/dl (31.0-36.0); Mean Corpuscular Hemoglobin 31.1 pg (27.0-33.0); Mean Corpuscular Volume 92.1 fL (80.0-98.0); Mean Platelet Volume 10.5 fL (9.4-12.4); Monocytes Absolute Auto 0.7 X10*3/uL (0.1-1.2); Monocytes Percent Auto 9.4 % (2-11); Neutrophils Absolute Auto 4.4 x10*3/uL (2.0-8.3); Neutrophils Percent Auto 60.7 % (45-73); Platelet Count 260 X10*3/uL (160-400); Red Blood Count 4.28 X10*6/uL (4.60-5.80); Red Cell Distribution Width 13.1 % (11.0-16.0); White Blood Count 7.3 X10*3/uL (4.8-10.8)
[2021-09-12 14:22] LABS: TSH reflex Free T4 1.29 uIU/mL (0.32-4.0)
[2021-09-12 14:36] LABS: Alanine Aminotransferase 22 U/L (0-40); Albumin Level 4.6 g/dL (3.5-5.0); Alkaline Phosphatase 74 U/L (39-117); Anion Gap 16 (12-20); Aspartate Amino Transferase 21 U/L (5-37); Bilirubin Total 0.5 mg/dL (0.0-1.0); Blood Urea Nitrogen 16 mg/dL (9-16); Calcium 9.3 mg/dL (8.4-10.2); Carbon Dioxide 26 mmol/L (22-29); Chloride 102 mmol/L (96-108); Estimated Glomerular Filt Rate > 60; Glucose Random 99 mg/dL (60-115); Lipase 25 U/L (8-78); Potassium 4.6 mmol/L (3.3-5.1); Sodium 139 mmol/L (135-145); Total Protein 7.5 g/dL (6.5-8.0)
[2021-09-14 13:32] LABS: Transglutaminase IgA <1.0 U/mL
[2021-09-20 15:31] LABS: Endomysial IgA Antibody Negative (Negative)
== END 2021-09-12 08:24 | disposition home or self-care (01) ==
LOC: HO.HMGCLDS 08:23
PROVIDERS: PCP Nurse Practitioner Family; Visit Provider Nurse Practitioner Family
DX: R10.9 Unspecified abdominal pain (principal)
CPT/HCPCS: 36415; 80053; 83690; 84443; 85025; 86231; 86364

== ENCOUNTER → 2021-12-12 07:20 | Outpatient (REF) | payer MEDICARE, SELFPAY ==
--- NOTE | 2021-12-12 07:23 | CA_ITS ---
Transthoracic Echocardiogram Patient (Last, First, Middle): Marv Minaya E Gender: Male Date of : 1955 Age: 66 Procedure Date: 12/12/2021 Procedure Type: Transthoracic Echocardiogram Location: OP Height: 187.96 cm Weight: 131.54 kg BSA: 2.54 m2 Heart Rate: bpm BP: 122 / 78 mmHg Elevator Tender: TO Referring MD: Cristopher Schuster MD Symptoms: I48.0 - Paroxysmal atrial fibrillation Study Quality: Technically Difficult/Contrast ECG Rhythm: Sinus Conclusions: - The left ventricular systolic function is normal. The calculated ejection fraction is 59% by biplane method. - There is mild aortic valve stenosis. - There is mild dilatation of the sinuses of Valsalva measuring 4.43 cm and mild dilatation of the ascending aorta measuring 4.40 cm. Findings Procedure Information Contrast agent, definity, is being given per protocol without apparent complications. Left Ventricle Normal left ventricular cavity size. There is mildly increased left ventricular wall thickness. The left ventricular systolic function is normal. The calculated ejection fraction is 59% by biplane method. There is no evidence of regional wall motion abnormalities. Diastolic function is normal for age. Right Ventricle Normal right ventricular cavity size and systolic function. Atria The left atrium is moderately dilated. The right atrium is normal in size. Aortic Valve There is mild calcification of the aortic valve. There is mild aortic valve stenosis. The peak aortic gradient is 27 mmHg.The mean gradient is 14 mmHg. There is no aortic valve regurgitation. Mitral Valve There is mild mitral annular calcification. There is no mitral valve regurgitation. There is no mitral valve stenosis. Pulmonic Valve The pulmonic valve is likely normal. Tricuspid Valve Normal tricuspid valve structure. There is trace tricuspid valve regurgitation. There is no evidence of pulmonary hypertension. Great Vessels There is mild dilatation of the sinuses of Valsalva measuring 4.43 cm and mild dilatation of the ascending aorta measuring 4.40 cm. Venous The inferior vena cava is normal in size and collapses greater than 50% with inspiration. Pericardium/Pleural There is no evidence of pericardial effusion. Prior Study Comparison Changes noted compared to prior study dated: 08/16/2019. Increase in ascending aortic size; mild aortic stenosis now seen. Measurements 2D Linear Measurements IVSd: 1.22 0.6-0.9/0.6-1.0 cm LVIDd: 5.59 3.9-5.3/4.2-5.9 cm LVIDd Index: 2.20 2.4-3.2/2.2-3.1 cm/m2 LVIDs: 3.17 2.0-3.6 cm LVPWd: 1.24 0.7-1.1 cm LA Diam: 4.10 2.7-3.8/3.0-4.0 cm LAIDs Index: 1.61 1.5-2.3 cm/m2 LV Mass: 360.86 67-162/88-224 g LV Mass Index: 142.07 43-95/49-115 g/m2 LVOT Diam: 2.50 3.0+(-)1.3 cm 2D Systolic Function EF 4C: 55.20 >55% EF 2C: 62.80 >55% EF BiP: 58.80 >55% Mitral Valve MV Pk E: 0.75 MV PK A: 0.69 MV Decel Time: 215.00 E/A: 1.10 E'Lateral: 9.25 E'Medial: 7.62 E/E' Med: 9.80 E/E' Lat: 8.10 PHT: 63.00 MVA PHT: 3.49 Decel [place]: 3.47 Aortic Valve AoV Pk John: 2.58 AoV Mn John: 1.70 AoV VTI: 0.58 AoV Pk Grad: 27.00 Aov Mn Grad: 14.00 GREGORIA Cont.VTI: 2.43 LVOT LVOT Pk John: 1.16 LVOT Mn John: 0.75 LVOT VTI: 0.29 LVOT Pk Grad: 5.00 LVOT Mn Grad: 3.00 LVOT Diam: 2.50 LVOT Area: 4.91 Diastolic Function MV Pk E: 0.75 MV Pk A: 0.69 E/A: 1.10 E'Medial: 7.62 E/E' Med: 9.80 E' Laterial: 9.25 E/E' Lat: 8.10 Right Ventricle TAPSE (mm): 28.10 TVS' John: 14.70 Tricuspid Valve TR Pk John: 1.79 TR Pk Grad: 13.00 RA Press: 3.00 RVSP: 16.00 Great Vessels Aorta Sinus of Valsalva: 4.43 2.0-3.[address] [place]: 3.67 1.7-3.4 cm Ao Asc: 4.40 2.1-3.4 cm Updated in Other Vendor System with Status of Final Richard Person MD electronically signed on 12/14/2021 11:48:49 AM with status of Final
== END ==
LOC: HO.CARD 07:20
PROVIDERS: PCP Nurse Practitioner Family; Visit Provider Internal Medicine Cardiovascular Disease
DX: I48.0 Paroxysmal atrial fibrillation (principal)
CPT/HCPCS: 93306; Q9957

== ENCOUNTER 2021-12-15 13:04 | Emergency (ER) | payer MEDICARE, SELFPAY ==
[2021-12-15 13:18] VITALS: BP 112/70; PULSE 79; RESP 18; TEMP 36.8; O2SAT 96; BMI 37.2
--- OUTSIDE RECORDS SUMMARY | 2021-12-15 13:52 | XMS_ITS | Continuity of Care Document ---
:[address] [facility] Care Team Providers Name Role Phone [facility] Unavailable Unavailable Problems Combined list of problems from Department of Defense and Veterans Affairs facilities. It does not include entries that were removed or entered in error. Problem Status Onset Problem Date of Comments Source Date Type Resolution History of total Active 08/11/19 Condition Apr 19, [facility] hip [facility] 2016 Entered WSTRN By: PARUL BLANDON [facility] LLIAM F Comment: Left THR, [place] [facility] Abdominal aortic Active Condition [facility] aneurysm 3.0 to 5.5 W[facility]N centimeters in male [place] [facility] AF- Atrial Active Condition [facility] Fibrillation (SCT [place] TRN [id number]) [place] [facility] Alcohol Dependence Active Condition V A [facility] [place] [facility] Counseling on Active Condition [facility] Substance Use and WS TRN Abuse (ICD-9-CM [place] V65.42) [facility] Family history of Active Condition [facility] colorectal cancer [place] [facility] Gastroesophageal Active Condition [facility] Reflux Disorder * WS TR[facility] (ICD-9-CM 530.81) [facility] Hand Injuries * Active Condition June 20, [place] [facility] (ICD-9-CM 959.4) 2009 Entered WSTRN By: MAYNOR MARTINI [facility] O Comment: limitation of movement of right thumb Hearing loss * Active Condition [facility] (ICD-9-CM 389.9) WST RN JUSTIN S HCS Hernia, Ventral Active Condition [facility] C [facility]L (ICD-9-CM 553.20) [place] [facility] Hypertension * Active Condition [facility] (ICD-9-CM 401.9) WST RN JUSTIN S H[facility] Obesity * (ICD-9-CM Active Condition [facility] 278.00[place] [facility] [place] [facility] PTSD Active Condition [facility] [place] [facility] Sleep Apnea Active Condition [facility] (ICD-9-CM WSTRN 780.57/786.09) [facility] Tinnitus * Active Condition [facility] (ICD-9-CM 388.30) [place] [facility] Urgency of Active Condition [facility] (ICD-9-CM WSTRN 788.63) [place] [facility] Acute congestive Inactive Condition 09/06/2013 Sep 06, V A [facility] heart failure 2013 Entered WST RN By: JUSTIN Altaf PARUL MARTINEZ [facility] LLIAM F Comment: one episode with onset of afib, since ablated. Diagnosis: Active Diagnosis [facility] ICD-10-CM K03.6 WSTR N Deposits [place] [accretions] on HCS teethwith Provider Comments: Deposits [accretions] on teeth Diagnosis: Active Diagnosis [facility] ICD-10-CM K21.9 WSTR N Gastro-esophageal [place] reflux disease HCS without esophagitiswith Provider Comments: Gastro-Esophageal Reflux Disease without Esophagitis Diagnosis: Active Diagnosis [facility] ICD-10-CM K08.9 WSTR N Disorder of teeth [place] and supporting HCS structures, unspecifiedwith Provider Comments: Disorder of teeth and supporting structures, unspecified Diagnosis: Active Diagnosis [facility] ICD-10-CM H43.813 WS TRN Vitreous [place] degeneration, HCS bilateralwith Provider Comments: Vitreous Degeneration, Bilateral Diagnosis: Active Diagnosis [facility] ICD-10-CM Z51.81 WST RN Encounter for [place] therapeutic drug HCS level monitoringwith Provider Comments: Therapeutic drug level monitoring Diagnosis: Active Diagnosis [facility] ICD-10-CM I48.91 WST RN Unspecified atrial [place] fibrillationwith [facility] Provider Comments: AF- Atrial Fibrillation (SCT [id number]) Diagnosis: Active Diagnosis [facility] ICD-10-CM Z23 WSTRN Encounter for [place] immunizationwith [facility] Provider Comments: Encounter for Immunization Medications Combined list of outpatient medications from Department of Defense and Veterans Affairs facilities. Medications provided include 1) outpatient medications from the last 15 months, and 2) patient-reported medications. Medication Details Route Status Patient Prescription Prescription Last Ordering Order Source Instructions Expires Number Dispense Provider Date Date APIXABAN TAKE ONE ORAL ACTIVE 08/31/2022 [id number] VANWAGN ER 08/30/ [facility] 5MG TAB TABLET 2 ,2021 CN[facility] BY MOUTH F [facility] TWICE [place] [facility] APIXABAN TAKE ONE ORAL DISCONT 02/22/2022 [id number] VANWAG NER [facility] 5MG TAB TABLET INUED 2 ,2021 [facility] BY MOUTH F [facility] TWICE [place] [facility] APIXABAN TAKE ONE ORAL DISCONT 11/26/2020 [id number] CHARTIE R, [facility] 5MG TAB TABLET INUE 1 NADINE M 2020 CN[facility] BY MOUTH [facility] TWICE [place] [facility] DRONEDARONE TAKE ONE ORAL ACTIVE 08/31/2022 [id number] V ANWAGNER 08/30/ [facility] 400MG TAB TABLET 2 ,2021 CN[facility] BY MOUTH F [facility] TWICE [place] [facility] DRONEDARONE TAKE ONE ORAL DISCONT 02/22/2022 [id number] VANWAGNER 02/21/ [facility] 400MG TAB TABLET INUED 2 ,2021 CN[facility] BY MOUTH F [facility] TWICE [place] [facility] DRONEDARONE TAKE ONE ORAL DISCONT 08/16/2021 [id number] S HETH,SANDRA 08/16/ [facility] 400MG TAB TABLET INUE 1 AV 2020 CN[facility] BY MOUTH [facility] TWICE [place] [facility] FISH OIL TAKE BY ORAL ACTIVE VANWAGNER 11/09/ [facility] CAP,ORAL MOUTH ,2020 [facility] F [facility] [place] [facility] LISINOPRIL TAKE ONE ORAL SUSPEND 08/31/2022 [id number] V ANWAGNER 10/20/ [facility] 10MG TAB TABLET ED 2 ,2021 CN[facility] BY MOUTH F [facility] ONCE [place] [facility] BLOOD PRESSURE LISINOPRIL TAKE ONE ORAL DISCONT 11/10/2021 [id number] V ANWAGNER 01/20/ [facility] 10MG TAB TABLET INUED 2 ,2020 CNTRL BY MOUTH F [facility]N ONCE [place] [facility] BLOOD PRESSURE LISINOPRIL TAKE ONE ORAL DISCONT 05/03/2021 [id number] V ANWAGNER 05/05/ [facility] 10MG TAB TABLET INUE 1 ,2020 CNTRL BY MOUTH F [facility]N ONCE [place] [facility] CONTROL [facility]CS BLOOD PRESSURE MULTIVITAMI TAKE ONE ORAL ACTIVE CANDY GRIGSBY NS TABLET NNE O 2009 CNTRL W/MINERALS BY MOUTH WSTRN TAB EVERY [place] [facility] OMEPRAZOLE TAKE ONE ORAL ACTIVE 08/31/2022 [id number] VANWA GNER [facility] 20MG CAP,EC CAPSULE 2 ,2021 CNT RL BY MOUTH F WSTRN EVERY [place] DAY [facility] OMEPRAZOLE TAKE ONE ORAL DISCONT 11/10/2021 [id number] V ANWAGNER 01/29/ [facility] 20MG CAP,EC CAPSULE INUED 2 ,2020 CNT RL BY MOUTH F WSTRN EVERY [place] DAY [facility] OMEPRAZOLE TAKE ONE ORAL DISCONT 02/14/2021 [id number] V ANWAGNER 02/13/ [facility] 20MG CAP,EC CAPSULE INUE 1 ,2020 CNT RL BY MOUTH F WSTRN EVERY [place] DAY [facility] POLYVINYL INSTILL EACH ACTIVE WAQAS,M ALCOHOL 1 DROP EYE ICHELE 2021 CNTRL 1.4% INTO WSTRN SOLN,OPH EACH EYE [place] THREE SETS TIMES HCS DAILY NEEDED ROSUVASTATI TAKE BY ORAL ACTIVE VANWAGNER 11/09/ VA N TAB MOUTH ,2020 [facility] F [facility] [place] [facility] VITAMIN D3 TAKE BY ORAL ACTIVE VANWAGNER 11/09/ V A (CHOLECALCI MOUTH ,2020 CNTRL FEROL) TAB F [facility] [place] [facility] Allergies, Adverse Reactions, Alerts Combined list of allergies from Department of Defense and Veterans Affairs facilities. It does not include entries that were removed or entered in error. Substance Category Reaction Severity Reaction Status Date Comments S ource type Reported CODEINE Propensity Propensity active [place] to adverse to adverse 1 HC S reactions to reactions V [facility] drug to drug (finding) (finding) MORPHINE Propensity Propensity active [place] to adverse to adverse 1 HC S reactions to reactions V [facility] drug to drug (finding) (finding) Immunizations Combined list of available immunizations from the Department of Defense and Veterans Affairs facilities. Immunization Series Date Administered Site Reaction Lot CVX Drug St atus Comments Source Given By Number Code Stuffed Casing Tier PNEUMOCOCCAL complet [facility] CON[facility] 2021 ed CNTR L PCV20, W[facility]N POLYSACCHARID [place] [id number] SETS CONJUGATE, HCS ADJUVANT, PF INFLUENZA complet V A VACCINE, 2020 ed CNTRL QUADRIVALENT, WSTRN ADJUVANTED [facility] TDAP complet [facility] 2020 ed [facility] [place] [facility] HEP B, ADULT 3 complet [facility] 2020 ed [facility] [place] [facility] ZOSTER 2 complet [facility] RECOMBINANT 2020 ed CN TRL [facility] [place] [facility] COVID-19 2 complet MOD; VA (MODERN), 2020 ed [id number]; CNTRL MRNA, LNP-S, 02 WSTRN PF, 100 1 [place] MCG/0.5 ML SET S DOSE HCS COVID-19 1 complet MOD; [facility] (MODERN), 2020 ed [id number]; CNTRL MRNA, LNP-S, 02 WSTRN PF, 100 1 [place] MCG/0.5 ML SET S DOSE HCS HEP A-HEP B 2 08/08/ NONE 104 complet [facility] 2019 ed CNTRL [facility] [place] [facility] ZOSTER 1 complet [facility] RECOMBINANT 2019 ed CN TRL [facility] [place] [facility] HEP A-HEP B 1 04/15/ NONE 104 complet [facility] 2019 ed CNTRL [facility] [place] [facility] TD (ADULT), 2 complet Sit e: VA LF TETANUS 2019 ed Right CNT RL TOXOID, Deltoid WSTR N PRESERVATIVE [place] FREE, SETS ADSORBED HCS INFLUENZA, complet Non Va [facility] SEASONAL, 2019 ed PCP CNTR L INJECTABLE WST RN [place] [facility] INFLUENZA, complet Site: [facility] SEASONAL, 2016 ed Left CNTR L INJECTABLE Deltoid W [facility]N [place] [facility] PNEUMOCOCCAL complet VA POLYSACCHARID 2017 ed CNTRL E PPV23 [facility] [place] [facility] FLU,3 YRS complet stated [facility] (HISTORICAL) 2011 ed C NTRL [facility] [place] [facility] TD(ADULT) complet via the VA UNSPECIFIED 2002 ed water CN TRL FORMULATION dept. WS TRN [place] [facility] TDAP complet via the [facility] 2002 ed water CNTR[facility] dept. [facility] [place] [facility] Results Combined list of recent chemistry, hematology and other laboratory results from Department of Defense and Veterans Affairs, ranging from 15 months to all on record, depending upon the facility. Order Results Value Reference Date Interpretation Specimen Commen ts Source Name Range BASIC UREA 17 7 - 25 08/21 Specimen Type: S STANISLAW [facility] METABOLIC NITROGEN /2021 No comment en tered. WSTRN PANEL [MASS/VOLUM Ordering Pr ovider: BLAISE MARTINEZ (fasting) E] IN SERUM Report Re leased Date/Time: Nov 09, 2020 09:00 AM HCS OR PLASMA Reporting Lab : [facility] [place]STRN [place] [facility] [address] [facility] [address] Performing Lab: [facility] [place]N [place] [facility] [address] [facility] [address] BASIC GLUCOSE 100 65 - 100 07 Specimen Type: SERUM [facility] METABOLIC [MASS/VOLUM /2021 No comment entered. WSTRN PANEL E] IN SERUM Ordering Pr ovider: BLAISE MARTINEZ (fasting) OR PLASMA Report Rele ased Date/Time: Nov 09, 2020 09:00 AM TS HCS Reporting Lab: [facility] [place]N [place] [facility] [address] [facility] [address] Performing Lab: [facility] [place]N [place] [facility] [address] [facility] [address] BASIC SODIUM 140 135 - 145 07 Specimen Type: SERUM [facility] METABOLIC [MOLES/VOLU /2021 No comment entered. WSTRN PANEL ME] IN Ordering Provid er: BLAISE MARTINEZ (fasting) SERUM OR Report Relea sed Date/Time: Nov 09, 2020 09:00 AM [facility] PLASMA Reporting Lab: [facility] [place] [facility] [address] [facility] [address] Performing Lab: [facility] [address] [facility] [address] BASIC POTASSIUM 4.5 3.5 - 5.0 07 Specimen Typ e: SERUM [facility] METABOLIC [MOLES/VOLU /2021 No comment entered. WSTRN PANEL ME] IN Ordering Provid er: BLAISE MARTINEZUSE (fasting) SERUM OR Report Relea sed Date/Time: Nov 09, 2020 09:00 AM [facility] PLASMA Reporting Lab: [place] [facility] [facility] [facility] [address] [facility] [address] Performing Lab: [place] [facility] [facility] [address] [facility] [facility] [address] BASIC CHLORIDE 103 100 - 110 08/21 Specimen Type : SERUM [facility] METABOLIC [MOLES/VOLU /2021 No comment entered. WSTRN PANEL ME] IN Ordering Provid er: BLAISE MARTINEZ [place] (fasting) SERUM OR Report Relea sed Date/Time: Nov 09, 2020 09:00 AM [facility] PLASMA Reporting Lab: [place] [facility] [facility] [address] [facility] [address] Performing Lab: [place] [facility] [facility] [address] [facility] [facility] [address] BASIC CARBON 29 20 - 30 08/21 Specimen Type: S STAN[place]LAW [facility] METABOLIC DIOXIDE, No comment en tered. WSTRN PANEL TOTAL Ordering Provid er: BLAISE MARTINEZ [place] (fasting) [MOLES/VOLU Report Re leased Date/Time: Nov 09, 2020 09:00 AM [facility] ME] IN Reporting Lab: [place] [facility] [facility] SERUM OR [address] [facility] [address] PLASMA Performing Lab: [place] [facility] [facility] [address] [facility] [facility] [address] BASIC CREATININE 0.79 0.50 - 07 Specimen Type : SERUM [facility] METABOLIC [MASS/VOLUM 1.40 /2022 No comment entered. WSTRN PANEL E] IN SERUM Ordering Pr ovider: BLAISE MARTINEZCHKATIE (fasting) OR PLASMA Report Rele ased Date/Time: Nov 09, 2020 09:00 AM TS [facility] Reporting Lab: [facility] [place] [facility] [address] [facility] [address] Performing Lab: [facility] [place] [facility] [address] [facility] [address] BASIC GLOMERULAR >90 60 08/21 Specimen Type : SERUM [facility] METABOLIC FILTRATION /2021 No comment entered. WSTRN PANEL RATE/1.73 Ordering Prov ider: BLAISE MARTINEZ (fasting) SQ Report Releas ed Date/Time: Nov 09, 2020 09:00 AM TS [facility] M.GRANT Reporting L ab: [facility] [place] [facility] [VOLUME [address] [facility] [facility] [address] RATE/AREA] Performing L ab: [facility] [place] [facility] IN SERUM, [address] [facility] [facility] [address] PLASMA OR BLOOD BY CREATININE- BASED FORMULA (CKD-EPI) LIVER PROTEIN 7.1 6.0 - 8.3 08/21 Specimen Type: SERUM [facility] FUNCTION [MASS/VOLUM /2021 No comment entered. WSTRN E] IN SERUM Ordering Pr ovider: BLAISE MARTINEZ [place] PLASMA Report Releas ed Date/Time: Nov 09, 2020 09:00 AM [facility] Reporting Lab: [facility] [place] [facility] [address] [facility] [address] Performing Lab: [facility] [place] [facility] [address] [facility] [address] LIVER ALBUMIN 3.9 3.5 - 5.0 08/21 Specimen Type: SERUM [facility] FUNCTION [MASS/VOLUM /2021 No comment entered. WSTRN E] IN SERUM Ordering Pr ovider: BLAISE MARTINEZ [place] PLASMA Report Releas ed Date/Time: Nov 09, 2020 09:00 AM TS [facility] Reporting Lab: [facility] [place] [facility] [address] [facility] [address] Performing Lab: [facility] [place] [facility] [address] [facility] [facility] [address] LIVER ALKALINE 72 40 - 150 08/21 Specimen Type: SERUM [facility] FUNCTION PHOSPHATASE No comment entered. WSTRN [ENZYMATIC Ordering Pro vider: BLAISE MARTINEZ ACTIVITY/VO Report Rele ased Date/Time: Nov 09, 2020 09:00 AM TS HCS LUME] IN Reporting Lab: [facility] [place] [facility] SERUM OR [address] [place] [address] PLASMA Performing Lab: [facility] [place] [facility] [address] [place] [address] LIVER ASPARTATE 20 5 - 34 08/21 Specimen Type: SERUM [facility] FUNCTION AMINOTRANSF No comment entered. WSTRN ERASE Ordering Provid er: BLAISE MARTINEZ [ENZYMATIC Report Relea sed Date/Time: Nov 09, 2020 09:00 AM TS HCS ACTIVITY/VO Reporting L ab: [facility] [place] [facility] LUME] [place] [address] [facility] [address] SERUM OR Performing Lab : [facility] [place] [facility] PLASMA [address] [facility] [facility] [address] LIVER ALANINE 23 6 - 55 08/21 Specimen Type: S STANISLAW [facility] FUNCTION AMINOTRANSF No comment entered. WSTRN ERASE Ordering Provid er: BLAISE MARTINEZ [ENZYMATIC Report Relea sed Date/Time: Nov 09, 2020 09:00 AM TS HCS ACTIVITY/VO Reporting L ab: [facility] [place] [facility] LU[place]] [place] [address] [facility] [address] SERUM OR Performing Lab : [facility] [place] [facility] PLASMA [address] [place] [address] LIVER BILIRUBIN.T 0.3 0.2 - 1.2 08/21 Specimen T ype: SERUM [facility] FUNCTION OTAL No comment ente red. WSTRN [MASS/VOLUM Ordering Pr ovider: BLAISE MARTINEZ E] IN SERUM Report Rele ased Date/Time: Nov 09, 2020 09:00 AM TS HCS OR PLASMA Reporting Lab : [facility] [place] [facility] [address] [facility] [address] Performing Lab: [facility] [place] [place] [facility] [address] [facility] [facility] [address] LIPID CHOLESTEROL 144 7 - 199 07/12 Specimen Typ e: SERUM [facility] PANEL [MASS/VOLUM /2021 No comment e ntered. WSTRN FASTING E] IN SERUM Ordering Pr ovider: BLAISE MARTINEZ OR PLASMA Report Releas ed Date/Time: Nov 09, 2020 09:00 AM TS HCS Reporting Lab: [facility] [place] [facility] [address] [facility] [address] Performing Lab: [facility] [place] [address] [address] LIPID TRIGLYCERID 99 0 - 150 07/ Specimen Typ e: SERUM [facility] PANEL E /2021 No comment enter ed. WSTRN FASTING [MASS/VOLUM Ordering Pr ovider: BLAISE MARTINEZCHKATIE E] IN SERUM Report Rele ased Date/Time: Nov 09, 2020 09:00 AM TS HCS OR PLASMA Reporting Lab : [facility] [place] [address] [address] Performing Lab: [facility] [place] [address] [address] LIPID CHOLESTEROL 70 0 - 129 07/12 Specimen Typ e: SERUM [facility] PANEL IN LDL /2021 No comment enter ed. WSTRN FASTING [MASS/VOLUM Ordering Pr ovider: BLAISE MARTINEZCHUSE E] IN SERUM Report Rele ased Date/Time: Nov 09, 2020 09:00 AM TS HCS OR PLASMA Reporting Lab : [facility] [place] [facility] BY [address] [place] [address] CALCULATION Performing Lab: [facility] [place] [place] [address] [address] LIPID CHOLESTEROL 2.7 07/12 Specimen Typ e: SERUM [facility] PANEL .TOTAL/CHOL /2021 No comment e ntered. WSTRN FASTING ESTEROL IN Ordering Pro vider: VANWAGNER,BLAISE F [place] HDL [MASS Report Releas ed Date/Time: Nov 09, 2020 09:00 AM TS HCS RATIO] IN Reporting Lab : [facility] [place] [facility] SERUM OR [address] [facility] [address] PLASMA Performing Lab: [facility] [place] [facility] [address] [facility] [address] LIPID CHOLESTEROL 54 40 - 60 07 Specimen Typ e: SERUM [facility] PANEL IN HDL /2021 No comment enter ed. WSTRN FASTING [MASS/VOLUM Ordering Pr ovider: BLAISE MARTINEZCHUSE E] IN SERUM Report Rele ased Date/Time: Nov 09, 2020 09:00 AM TS HCS OR PLASMA Reporting Lab : [facility] [place] [facility] [address] [facility] [address] Performing Lab: [facility] [place] [facility] [address] [facility] [address] CBC LEUKOCYTES 6.62 4.50 - 07 Specimen Type : BLOOD [facility] [#/VOLUME] 11.00 No comment en tered. WSTRN IN BLOOD BY Ordering Pr ovider: BLAISE MARTINEZ [place] AUTOMATED Report Releas ed Date/Time: Nov 09, 2020 09:00 AM TS HCS COUNT Reporting Lab: [facility] [place] [facility] [address] [facility] [address] Performing Lab: [facility] [place] [facility] [address] [facility] [address] CBC ERYTHROCYTE 4.36 4.23 - 08/21 Specimen Typ e: BLOOD [facility] S 5.66 No comment enter ed. WSTRN [#/VOLUME] Ordering Pro vider: BLAISE MARTINEZ [place] IN BLOOD BY Report Rele ased Date/Time: Nov 09, 2020 09:00 AM TS HCS AUTOMATED Reporting Lab : [facility] [place] [facility] COUNT [address] [facility] [address] Performing Lab: [facility] [place] [facility] [address] [facility] [address] CBC HEMOGLOBIN 13.2 12.8 - 17 08/21 Specimen Ty pe: BLOOD [facility] [MASS/VOLUM /2021 No comment e ntered. WSTRN E] IN BLOOD Ordering Pr ovider: BLAISE MARTINEZ Report Released Date/Time: Nov 09, 2020 09:00 AM TS HCS Reporting Lab: [facility] [place] [facility] [address] [facility] [address] Performing Lab: [facility] [place] [facility] [address] [facility] [address] CBC HEMATOCRIT 40.3 39.2 - 08/21 Specimen Type : BLOOD [facility] [VOLUME 50.4 No comment enter ed. WSTRN FRACTION] Ordering Prov ider: BLAISE MARTINEZ OF BLOOD BY Report Rele ased Date/Time: Nov 09, 2020 09:00 AM TS HCS AUTOMATED Reporting Lab : [facility] [place] [facility] COUNT [address] [facility] [address] Performing Lab: [facility] [place] [facility] [address] [facility] [address] CBC MCV 92.4 82 - 99 08/21 Specimen Type: B LOOD [facility] [ENTITIC No comment ente red. WSTRN VOLUME] BY Ordering Pro vider: BLAISE MARTINEZ AUTOMATED Report Releas ed Date/Time: Nov 09, 2020 09:00 AM TS HCS COUNT Reporting Lab: [facility] [place] [facility] [address] [facility] [address] Performing Lab: [facility] [place] [facility] [address] [facility] [address] CBC MCHC 32.8 30.8 - 08/21 Specimen Type: B LOOD [facility] [MASS/VOLUM 35.1 /2021 No comment e ntered. WSTRN E] BY Ordering Provid er: BLAISE MARTINEZ AUTOMATED Report Releas ed Date/Time: Nov 09, 2020 09:00 AM TS [facility]CS COUNT Reporting Lab: [facility] [place] [facility] [address] [facility] [address] Performing Lab: [facility] [place] [facility] [address] [facility] [address] CBC PLATELETS 250 140 - 360 08/21 Specimen Typ e: BLOOD [facility] [#/VOLUME] /2021 No comment en tered. WSTRN IN BLOOD BY Ordering Pr ovider: BLAISE MARTINEZ AUTOMATED Report Releas ed Date/Time: Nov 09, 2020 09:00 AM TS HCS COUNT Reporting Lab: [facility] [place] [facility] [address] [facility] [address] Performing Lab: [facility] [place] [facility] [address] [facility] [address] CBC ERYTHROCYTE 12.5 12.0 - 08/21 Specimen Typ e: BLOOD [facility] DISTRIBUTIO 16.0 No comment e ntered. WSTRN N WIDTH Ordering Provid er: BLAISE MARTINEZ [RATIO] BY Report Relea sed Date/Time: Nov 09, 2020 09:00 AM TS HCS AUTOMATED Reporting Lab : [facility] [place] [facility] COUNT [address] [facility] [address] Performing Lab: [facility] [place] [facility] [address] [facility] [address] CBC MCH 30.3 26.2 - 08/21 Specimen Type: B LOOD [facility] [ENTITIC 32.6 No comment ente red. WSTRN MASS] BY Ordering Provi josep: BLAISE MARTINEZCHUSE AUTOMATED Report Releas ed Date/Time: Nov 09, 2020 09:00 AM TS [facility]CS COUNT Reporting Lab: [facility] [place] [facility] [address] [facility] [address] Performing Lab: [facility] [place] [facility] [address] [facility] [address] LIVER PROTEIN 7.4 6.0 - 8.3 03/21 Specimen Type: SERUM [facility] FUNCTION [MASS/VOLUM /2021 No comment entered. WSTRN E] IN SERUM Ordering Pr ovider: BLAISE MARTINEZCHKATIE OR PLASMA Report Releas ed Date/Time: Feb 21, 2021 02:44 PM TS HCS Reporting Lab: [facility] [place] [facility] [address] [facility] [address] Performing Lab: [facility] [place] [facility] [address] [facility] [address] LIVER ALBUMIN 3.9 3.5 - 5.0 03/21 Specimen Type: SERUM [facility] FUNCTION [MASS/VOLUM /2021 No comment entered. WSTRN E] IN SERUM Ordering Pr ovider: BLAISE MARTINEZCHUSE OR PLASMA Report Releas ed Date/Time: Feb 21, 2021 02:44 PM TS [facility] Reporting Lab: [facility] [place] [facility] [address] [facility] [address] Performing Lab: [facility] [place] [facility] [address] [facility] [address] LIVER ALKALINE 69 40 - 150 03/21 Specimen Type: SERUM [facility] FUNCTION PHOSPHATASE No comment entered. WSTRN [ENZYMATIC Ordering Pro vider: BLAISE MARTINEZ ACTIVITY/VO Report Rele ased Date/Time: Feb 21, 2021 02:44 PM TS [facility]] IN Reporting Lab: [facility] [place] [facility] SERUM [place] [address] [facility] [id number] PLASMA Performing Lab: [facility] [place] [facility] [address] [facility] [address] LIVER ASPARTATE 23 5 - 34 03/21 Specimen Type: SERUM [facility] FUNCTION AMINOTRANS No comment entered. WSTRN ERASE Ordering Provid er: BLAISE MARTINEZ [ENZYMATIC Report Relea sed Date/Time: Feb 21, 2021 02:44 PM [facility] ACTIVITY/VO Reporting L ab: [facility] [place] [facility] [place] [place] [address] [facility] [address] SERUM OR Performing Lab [facility] [place] [facility] PLASMA [address] [facility] [address] LIVER ALANINE 26 6 - 55 03/21 Specimen Type: S STANISLAW [facility] FUNCTION AMINOTRANSF No comment entered. [facility]STRN ERASE Ordering Provid er: BLAISE MARTINEZ [ENZYMATIC Report Relea sed Date/Time: Feb 21, 2021 02:44 PM TS [facility] ACTIVITY/VO Reporting L ab: [facility] [place] [facility] [place] IN [address] [facility] [address] SERUM OR Performing Lab [facility] [place] [facility] PLASMA [address] [facility] [address] LIVER BILIRUBIN.T 0.4 0.2 - 1.2 03/21 Specimen T ype: SERUM [facility] FUNCTION OTA No comment ente red. WSTRN [MASS/VOLUM Ordering Pr ovider: BLAISE MARTINEZ [place] E] IN SERUM Report Rele ased Date/Time: Feb 21, 2021 02:44 PM TS [facility] OR PLASMA Reporting Lab : [facility] [place] [facility] [address] [facility] [address] Performing Lab: [facility] [place] [facility] [address] [facility] [address] CBC LEUKOCYTES 7.03 4.50 - 0209 Specimen Type : BLOOD [facility] [#/VOLUME] 11.00 No comment en tered. WSTRN IN BLOOD BY Ordering Pr ovider: BLAISE MARTINEZ [place] AUTOMATED Report Releas ed Date/Time: Feb 21, 2021 02:44 PM [facility] COUNT Reporting Lab: [facility] [place] [facility] [address] [facility] [address] Performing Lab: [facility] [place] [facility] [address] [facility] [address] CBC ERYTHROCYTE 4.34 4.23 - 02 Specimen Typ e: BLOOD [facility] S 5.66 No comment enter ed. W[facility]N [#/VOLUME] Ordering Pro vider: BLAISE MARTINEZ [place] IN BLOOD BY Report Rele ased Date/Time: Feb 21, 2021 02:44 PM [facility] AUTOMATED Reporting Lab : [facility] [place] [facility] COUNT [address] [facility] [address] Performing Lab: [facility] [place] [facility] [address] [facility] [address] CBC HEMOGLOBIN 13.3 12.8 - 17 03/21 Specimen Ty pe: BLOOD [facility] [MASS/VOLUM /2021 No comment e ntered. WSTRN E] IN BLOOD Ordering Pr ovider: BLAISE MARTINEZ Report Released Date/Time: Feb 21, 2021 02:44 PM [facility] Reporting Lab: [facility] [place] [facility] [address] [facility] [address] Performing Lab: [facility] [place] [facility] [address] [facility] [address] CBC HEMATOCRIT 40.3 39.2 - 03/21 Specimen Type : BLOOD [facility] [VOLUME 50.4 /2021 No comment enter ed. WSTRN FRACTION] Ordering Prov ider: BLAISE MARTINEZ OF BLOOD BY Report Rele ased Date/Time: Feb 21, 2021 02:44 PM TS [facility] AUTOMATED Reporting Lab : [facility] [place] [facility] COUNT [address] [facility] [address] Performing Lab: [facility] [place] [facility] [address] [facility] [address] CBC MCV 92.9 82 - 99 03/21 Specimen Type: B LOOD [facility] [ENTITIC /2021 No comment ente red. WSTRN VOLUME] BY Ordering Pro vider: BLAISE MARTINEZ AUTOMATED Report Releas ed Date/Time: Feb 21, 2021 02:44 PM [facility] COUNT Reporting Lab: [facility] [place] [facility] [address] [facility] [address] Performing Lab: [facility] [place] [facility] [address] [facility] [address] CBC MCHC 33.0 30.8 - 03/21 Specimen Type: B LOOD [facility] [MASS/VOLUM 35.1 /2021 No comment e ntered. WSTRN E] BY Ordering Provid er: BLAISE MARTINEZ AUTOMATED Report Releas ed Date/Time: Feb 21, 2021 02:44 PM [facility] COUNT Reporting Lab: [facility] [place] [facility] [address] [facility] [address] Performing Lab: [facility] [place] [facility] [address] [facility] [address] CBC PLATELETS 250 140 - 360 03/21 Specimen Typ e: BLOOD [facility] [#/VOLUME] /2021 No comment en tered. WSTRN IN BLOOD BY Ordering Pr ovider: BLAISE MARTINEZ AUTOMATED Report Releas ed Date/Time: Feb 21, 2021 02:44 PM [facility] COUNT Reporting Lab: [facility] [place] [facility] [address] [facility] [address] Performing Lab: [facility] [place] [facility] [address] [facility] [address] CBC ERYTHROCYTE 12.9 12.0 - 03/21 Specimen Typ e: BLOOD [facility] DISTRIBUTIO 16.0 No comment e ntered. WSTRN N WIDTH Ordering Provid er: BLAISE MARTINEZ [RATIO] BY Report Relea sed Date/Time: Feb 21, 2021 02:44 PM [facility] AUTOMATED Reporting Lab : [facility] [place] [facility] COUNT [address] [facility] [address] Performing Lab: [facility] [place] [facility] [address] [facility] [address] CBC MCH 30.6 26.2 - 03/21 Specimen Type: B LOOD [facility] [ENTITIC 32.6 /2021 No comment ente red. WSTRN MASS] BY Ordering Provi josep: BLAISE MARTINEZ AUTOMATED Report Releas ed Date/Time: Feb 21, 2021 02:44 PM [facility] COUNT Reporting Lab: [facility] [place] [facility] [address] [facility] [address] Performing Lab: [facility] [place] [facility] [address] [facility] [address] LIPID CHOLESTEROL 140 7 - 199 03/21 Specimen Typ e: SERUM [facility] PANEL [MASS/VOLUM /2021 No comment e ntered. WSTRN FASTING E] IN SERUM Ordering Pr ovider: BLAISE MARTINEZ OR PLASMA Report Releas ed Date/Time: Feb 21, 2021 02:44 PM [facility] Reporting Lab: [facility] [place] [facility] [address] [facility] [address] Performing Lab: [facility] [place] [facility] [address] [facility] [address] LIPID TRIGLYCERID 115 0 - 150 02 Specimen Typ e: SERUM [facility] PANEL E /2021 No comment enter ed. WSTRN FASTING [MASS/VOLUM Ordering Pr ovider: BLAISE MARTINEZCHUSE E] IN SERUM Report Rele ased Date/Time: Feb 21, 2021 02:44 PM TS [facility] OR PLASMA Reporting Lab : [facility] [place] [facility] [address] [facility] [address] Performing Lab: [facility] [place] [address] [address] LIPID CHOLESTEROL 66 0 - 129 02 Specimen Typ e: SERUM [facility] PANEL IN LDL /2021 No comment enter ed. WSTRN FASTING [MASS/VOLUM Ordering Pr ovider: BLAISE MARTINEZ E] IN SERUM Report Rele ased Date/Time: Feb 21, 2021 02:44 PM TS [facility] OR PLASMA Reporting Lab : [facility] [place] [facility] BY [address] [place] [address] CALCULATION Performing Lab: [facility] [place] [address] [address] LIPID CHOLESTEROL 2.7 03/21 Specimen Typ e: SERUM [facility] PANEL .TOTAL/CHOL /2021 No comment e ntered. WSTRN FASTING ESTEROL IN Ordering Pro vider: BLAISE MARTINEZ HDL [MASS Report Releas ed Date/Time: Feb 21, 2021 02:44 PM TS [facility] RATIO] IN Reporting Lab : [facility] [place] [facility] SERUM OR [address] [place] [address] PLASMA Performing Lab: [facility] [place] [address] [address] LIPID CHOLESTEROL 51 40 - 60 03/21 Specimen Typ e: SERUM [facility] PANEL IN HDL /2021 No comment enter ed. WSTRN FASTING [MASS/VOLUM Ordering Pr ovider: BLAISE MARTINEZCHUSE E] IN SERUM Report Rele ased Date/Time: Feb 21, 2021 02:44 PM TS [facility] OR PLASMA Reporting Lab : [facility] [place] [facility] [address] [facility] [address] Performing Lab: [facility] [place] [facility] [address] [facility] [address] BASIC UREA 15 7 - 25 03/21 Specimen Type: S STANISLAW [facility] METABOLIC NITROGEN /2021 No comment en tered. WSTRN PANEL [MASS/VOLUM Ordering Pr ovider: BLAISE MARTINEZ (fasting) E] IN SERUM Report Re leased Date/Time: Feb 21, 2021 02:44 PM TS [facility] OR PLASMA Reporting Lab : [facility] [address] [facility] [address] Performing Lab: [place] [facility] [address] BASIC GLUCOSE 100 65 - 100 03/21 Specimen Type: SERUM [facility] METABOLIC [MASS/VOLUM /2021 No comment entered. WSTRN PANEL E] IN SERUM Ordering Pr ovider: BLAISE MARTINEZ (fasting) OR PLASMA Report Rele ased Date/Time: Feb 21, 2021 02:44 PM TS [facility] Reporting Lab: [facility] [address] [facility] [address] Performing Lab: [place] [facility] [address] [facility] [address] BASIC SODIUM 138 135 - 145 03/21 Specimen Type: SERUM [facility] METABOLIC [MOLES/VOLU /2021 No comment entered. WSTRN PANEL ME] IN Ordering Provid er: BLAISE MARTINEZ (fasting) SERUM OR Report Relea sed Date/Time: Feb 21, 2021 02:44 PM TS [facility] PLASMA Reporting Lab: [facility] [place] [facility] [address] [facility] [address] Performing Lab: [facility] [address] [address] BASIC POTASSIUM 4.6 3.5 - 5.0 03/21 Specimen Typ e: SERUM [facility] METABOLIC [MOLES/VOLU /2021 No comment entered. WSTRN PANEL ME] IN Ordering Provid er: BLAISE MARTINEZ (fasting) SERUM OR Report Relea sed Date/Time: Feb 21, 2021 02:44 PM TS [facility] PLASMA Reporting Lab: [place] [facility] [facility] [address] [address] Performing Lab: [place] [facility] [address] [address] BASIC CHLORIDE 100 100 - 110 03/21 Specimen Type : SERUM [facility] METABOLIC [MOLES/VOLU /2021 No comment entered. WSTRN PANEL ME] IN Ordering Provid er: BLAISE MARTINEZ (fasting) SERUM OR Report Relea sed Date/Time: Feb 21, 2021 02:44 PM TS [facility] PLASMA Reporting Lab: [facility] [address] [address] Performing Lab: [facility] [address] [address] BASIC CARBON 29 20 - 30 03/21 Specimen Type: S STANISLAW [facility] METABOLIC DIOXIDE, /2021 No comment en tered. WSTRN PANEL TOTAL Ordering Provid er: BLAISE MARTINEZ (fasting) [MOLES/VOLU Report Re leased Date/Time: Feb 21, 2021 02:44 PM [facility] ME] IN Reporting Lab: [facility] SERUM OR [address] [place] [address] PLASMA Per[facility]: [facility] [address] [address] BASIC CREATININE 0.82 0.50 - 03/21 Specimen Type : SERUM [facility] METABOLIC [MASS/VOLUM 1.40 /2021 No comment entered. WSTRN PANEL E] IN SERUM Ordering Pr ovider: BLAISE MARTINEZ (fasting) OR PLASMA Report Rele ased Date/Time: Feb 21, 2021 02:44 PM [facility] Reporting Lab: [place] [facility] [address] [address] Performing Lab: [facility] [address] [address] BASIC GLOMERULAR 94 60 02 Specimen Type : SERUM [facility] METABOLIC FILTRATION /2021 No comment entered. WSTRN PANEL RATE/1.73 Ordering Prov ider: BLAISE MARTINEZ (fasting) SQ Report Releas ed Date/Time: Feb 21, 2021 02:44 PM TS [facility] M.PREDICTED Reporting L ab: [facility] [place] [facility] [VOLUME [address] [facility] [address] RATE/AREA] Performing L ab: [facility] [place] [facility] IN SERUM OR [address] [facility] [address] PLASMA BY CREATININE- BASED FORMULA (MDRD) LIVER PROTEIN 7.4 6.0 - 8.3 05/05 Specimen Type: SERUM [facility] FUNCTION [MASS/VOLUM /2020 No comment entered. WSTRN E] IN SERUM Ordering Pr ovider: BLAISE MARTINEZ OR PLASMA Report Releas ed Date/Time: Oct 15, 2019 08:20 AM TS [facility] Reporting Lab: [facility] [place] [facility] [address] [facility] [address] Performing Lab: [facility] [place] [facility] [address] [place] [address] LIVER ALBUMIN 4.1 3.5 - 5.0 05/05 Specimen Type: SERUM [facility] FUNCTION [MASS/VOLUM /2020 No comment entered. WSTRN E] IN SERUM Ordering Pr ovider: BLAISE MARTINEZCHKATIE OR PLASMA Report Releas ed Date/Time: Oct 15, 2019 08:20 AM TS [facility] Reporting Lab: [facility] [place] [facility] [address] [facility] [address] Performing Lab: [facility] [place] [facility] [address] [place] [address] LIVER ALKALINE 85 40 - 150 05/05 Specimen Type: SERUM [facility] FUNCTION PHOSPHATASE No comment entered. WSTRN [ENZYMATIC Ordering Pro vider: BLAISE MARTINEZ ACTIVITY/VO Report Rele ased Date/Time: Oct 15, 2019 08:20 AM TS [facility] [place]] IN Reporting Lab: [facility] [place] [facility] SERUM OR [address] [place] [address] PLASMA Performing Lab: [facility] [place] [facility] [address] [facility] [address] LIVER ASPARTATE 20 5 - 34 05/05 Specimen Type: SERUM [facility] FUNCTION AMINOTRANSF No comment entered. WSTRN ERASE Ordering Provid er: BLAISE MARTINEZ [ENZYMATIC Report Relea sed Date/Time: Oct 15, 2019 08:20 AM TS [facility]CS ACTIVITY/VO Reporting L ab: [facility] [place] [facility] LUME] IN [address] [facility] [address] SERUM OR Performing Lab : [facility] [place] [facility] PLASMA [address] [facility] LIVER ALANINE 20 0 - 55 05/05 Specimen Type: S STANISLAW [facility] FUNCTION AMINOTRANSF No comment entered. WSTRN ERASE Ordering Provid er: BLAISE MARTINEZ [ENZYMATIC Report Relea sed Date/Time: Oct 15, 2019 08:20 AM TS [facility]CS ACTIVITY/VO Reporting L ab: [facility] [place] [facility] LUME] IN [address] [facility] [address] SERUM OR Performing Lab : [facility] [place] [facility] PLASMA [address] [facility] [address] LIVER BILIRUBIN.T 0.3 0.2 - 1.2 05/05 Specimen T ype: SERUM [facility] FUNCTION OTAL No comment ente red. WSTRN [MASS/VOLUM Ordering Pr ovider: BLAISE MARTINEZ E] IN SERUM Report Rele ased Date/Time: Oct 15, 2019 08:20 AM TS HCS OR PLASMA Reporting Lab : [facility] [place] [facility] [address] [facility] [address] Performing Lab: [facility] [place] [facility] [address] [facility] [address] BASIC UREA 17 7 - 25 05/05 Specimen Type: S STANISLAW [facility] METABOLIC NITROGEN No comment en tered. WSTRN PANEL [MASS/VOLUM Ordering Pr ovider: BLAISE MARTINEZ (fasting) E] IN SERUM Report Re leased Date/Time: Oct 15, 2019 08:20 AM TS HCS OR PLASMA Reporting Lab : [facility] [address] [facility] [address] Performing Lab: [facility] [address] [facility] [address] BASIC GLUCOSE 100 65 - 100 05/05 Specimen Type: SERUM [facility] METABOLIC [MASS/VOLUM /2020 No comment entered. WSTRN PANEL E] IN SERUM Ordering Pr ovider: BLAISE MARTINEZ (fasting) OR PLASMA Report Rele ased Date/Time: Oct 15, 2019 08:20 AM TS [facility] Reporting Lab: [facility] [address] [facility] [address] Performing Lab: [facility] [address] [address] BASIC SODIUM 140 135 - 145 05/05 Specimen Type: SERUM [facility] METABOLIC [MOLES/VOLU No comment entered. WSTRN PANEL ME] IN Ordering Provid er: BLAISE MARTINEZ (fasting) SERUM OR Report Relea sed Date/Time: Oct 15, 2019 08:20 AM TS [facility] PLASMA Reporting Lab: [facility] [address] [facility] [address] Performing Lab: [facility] [address] [address] BASIC POTASSIUM 4.4 3.5 - 5.0 05/05 Specimen Typ e: SERUM [facility] METABOLIC [MOLES/VOLU No comment entered. WSTRN PANEL ME] IN Ordering Provid er: BLAISE MARTINEZ (fasting) SERUM OR Report Relea sed Date/Time: Oct 15, 2019 08:20 AM TS [facility] PLASMA Reporting Lab: [facility] [address] [facility] [address] Performing Lab: [facility] [address] [address] BASIC CHLORIDE 105 100 - 110 05/05 Specimen Type : SERUM [facility] METABOLIC [MOLES/VOLU /2020 No comment entered. WSTRN PANEL ME] IN Ordering Provid er: BLAISE MARTINEZ (fasting) SERUM OR Report Relea sed Date/Time: Oct 15, 2019 08:20 AM TS [facility] PLASMA Reporting Lab: [place] [facility] [facility] [address] [facility] [address] Performing Lab: [facility] [place] [facility] [address] [facility] [address] BASIC CARBON 26 20 - 30 05/05 Specimen Type: S STANISLAW [facility] METABOLIC DIOXIDE, /2020 No comment en tered. WSTRN PANEL TOTAL Ordering Provid er: BLAISE MARTINEZ (fasting) [MOLES/VOLU Report Re leased Date/Time: Oct 15, 2019 08:20 AM [facility] ME] IN Reporting Lab: [place] [facility] [place] [facility] SERUM OR [address] [place] [address] PLASMA Performing Lab: [place] [facility] [facility] [address] [address] BASIC CREATININE 0.76 0.50 - 05/05 Specimen Type : SERUM [facility] METABOLIC [MASS/VOLUM 1.40 /2020 No comment entered. WSTRN PANEL E] IN SERUM Ordering Pr ovider: BLAISE MARTINEZ (fasting) OR PLASMA Report Rele ased Date/Time: Oct 15, 2019 08:20 AM TS [facility] Reporting Lab: [place] [facility] [place] [address] [address] Performing Lab: [place] [facility] [place] [address] [address] BASIC GLOMERULAR 103 60 05/05 Specimen Type : SERUM [facility] METABOLIC FILTRATION /2020 No comment entered. WSTRN PANEL RATE/1.73 Ordering Prov ider: BLAISE MARTINEZ (fasting) SQ Report Releas ed Date/Time: Oct 15, 2019 08:20 AM TS [facility] M.PREDICTED Reporting L ab: [facility] [place] [facility] [VOLUME [address] [facility] [address] RATE/AREA] Performing L ab: [facility] [place] [facility] IN SERUM OR [address] [facility] [address] PLASMA BY CREATININE- BASED FORMULA (MDRD) Vital Signs Combined list of inpatient and outpatient Vital Signs from Department of Defense and Veterans Affairs, ranging from 12 months to all on record, depending upon the facility. Vital Sign Value Date Comments Source SYSTOLIC BLOOD PRESSURE 133 08/30/2021 [facility] [place] [facility] DIASTOLIC BLOOD PRESSURE 81 08/30/2021 [facility] [place] [facility] PULSE OXIMETRY 97% 08/30/2021 [facility] [place] [facility] WEIGHT 304.4 08/30/2021 [facility] [place] [facility] BMI 39kg/m2 08/30/2021 [facility] [place] [facility] PAIN 0 08/30/2021 [facility] [place] [facility] TEMPERATURE 99.2 08/30/2021 [facility] [place] [facility] PULSE 75 08/30/2021 [facility] [place] [facility] RESPIRATION 16 08/30/2021 [facility] [place] [facility] SYSTOLIC BLOOD PRESSURE 118 05/22/2021 [facility] 08[facility]52[facility] [place] [facility] DIASTOLIC BLOOD PRESSURE 69 05/22/2021 [facility] [place] [facility] PULSE 71 05/22/2021 [facility] [place] [facility] Encounters Combined list of: 1) Encounters from Department of Veterans Affairs facilities going back up to the last 18 months. 2) Encounters from the Department of Defense facilities going back up to 280 months. Location Location Encounter Encounter Reason Attending ADM DC Stat us Disposition Source Details Type Number For Provider Date Date Visit Outpatient 75764-507/20 [id number] [place] [facility] [facility] [place]P 61963-5.63 Diagnos VICKI-DUG 07/20 [facility] EST [id number] is: ,FRANK L CNTR L MINIMAL ICD-10- [facility] PROB CM Z23 [place] Encount SETS er for HCS immuniz ation<b r/>with Provide r Comment s: Encount er for Immuniz ation Outpatient [id number] 08/09 [facility] [id number] [facility]2021 [facility] [place] [facility] [id number] 08/16 [facility] [id number] [facility] [place] [id number] 08/16 [facility] En[facility] [id number] /2021 [facility] [place] [place] [id number] 08/31 [facility] [id number] [facility] [place] [facility] [facility] [place] [id number] 08/31 [facility] En[facility] [id number] [facility] [place] [facility] OFFICE O/P 31008-863 Diagnos MICHELLE, 11/09 [facility] EST LOW [id number] is: BLAISE F CNT RL 20-29 MIN ICD-10- [facility] CM [place] I48.91 SETS Unspeci HCS fied atrial fibrill ation<b r/>with Provide r Comment s: AF- Atrial Fibrill ation (SCT [id number]) DENTAL 52405-3.63 Diagnos KD,N 12/04 V A PROPHYLAXI [id number] is: ADEZHDA CN TRL S ADULT ICD-10- [facility] CM [place] K03.6 SETS Deposit HCS s [accret ions] on teeth<b r/>with Provide r Comment s: Deposit s [accret ions] on teeth Outpatient [id number] 12/18 [facility] [id number] [facility] [place] [facility] [facility] [place] [id number] 01/25 [facility] Encounter [id number] /2021 [facility] [place] [facility] [place] [id number] 02/20 [facility] Encounter [id number] /2022 [facility] [place] [address]-1.63 Diagnos ALAN,CHR 02/23 [facility] DIG [id number] is: ISTINE F [facility] ASSMT&MGMT ICD-10- [facility] 5-10 CM [place] Z51.81 SETS Encount HCS er for therape utic drug level monitor ing<br/ >with Provide r Comment s: Therape utic drug level monitor ing DETERMINE 23603-7.63 Diagnos WAQAS,IL 03/15 [facility] REFRACTIVE [id number] is: OSVALDO CNTR L STATE ICD-10- [facility] CM [place] H43.813 SETS Vitreou HCS s degener ation, bilater al
with Provide r Comment s: Vitreou s Degener ation, Bilater al Outpatient [id number] 03/15 [facility] Encounter [id number] /2022 [facility] [place] [facility] DENTAL 54483-9.63 Diagnos NERI,CL 05/22 V A PROPHYLAXI [id number] is: EONIC CNT RL S ADULT ICD-10- [facility] CM [place] K03.6 SETS Deposit HCS s [accret ions] on teeth<b r/>with Provide r Comment s: Deposit s [accret ions] on teeth PERIODIC 51572-2.63 Diagnos DANY CHANCE 05/22 [facility] ORAL EVAL [id number] is: AM CNTR[facility] EST ICD-10- [facility] CM [place] K08.9 SETS Disorde HCS r of teeth and support ing structu res, unspeci fied
with Provide r Comment s: Disorde r of teeth and support ing structu res, unspeci fied Outpatient [id number] 07/19 [facility] En[facility] [id number] [facility] [place] [facility] [facility] [place] [id number] 07/26 [facility] Encounter [id number] [facility] [place] [facility] [facility] OFF[place] O/P 51097-6.63 Diagnos MICHELLE, 08/30 [facility] EST MOD [id number] is: BLAISE F CNT RL 30-39 MIN ICD-10- [facility] CM [place] K21.9 SETS G[facility]- HCS esophag eal reflux disease without esophag itis
with Provide r Comment s: Gastro- Esophag eal Reflux Disease without Esophag itis Outpatient [id number] 10/26 [facility] [id number] [facility] CLEAN/INSP [id number] Diagnos BELISABELHEV,N 10/29 [place] ECT [place]AN[place] [id number] is: ADEZHDA [facility] PART DENT ICD-10- [facility] [place] K03.6 SETS Deposit HCS s [accret ions] on teeth<b r/>with Provide r Comment s: Deposit s [accret ions] on teeth Social History Combined list of available smoking, tobacco, and other social [facility]. Social History Response Date Comment Source Type Tobacco smoking [facility] [place] [facility] status NHIS EVERY DAY [facility] History of [facility]-TOBACCO DOESNT 07/19/2021 [place] [facility] tobacco use USE WI 30 MIN [place] [facility] History of VA-TOBACCO FORMER 05/09/2020 [place] [facility] [place] use [facility] [facility] History of VA-TOBACCO QUIT 5 03/23/2019 [place] [facility] tobacco use TO < 15 YRS [place] [facility] History of [place]-TOBACCO NEVER 01/19/2018 [place] [facility] tobacco use USED [facility] [facility] History of QUIT TOBACCO USE 01/17/2017 [place] [facility] tobacco use 1-7 YEARS AGO [place] [facility] History of QUIT TOBACCO USE 04/19/2016 [place] [facility] tobacco use 1-7 YEARS AGO [place] [facility] History of QUIT TOBACCO USE 05/05/2014 [place] [facility] tobacco use 1-7 YEARS AGO [place] [facility] History of QUIT TOBACCO USE 04/08/2013 . [place] [facility] tobacco use 1-7 YEARS AGO [place] [facility] History of CURRENT SMOKER 01/10/2012 [place] [facility] tobacco use [facility] [facility] History of V1-PT DECLINES 04/25/2011 [place] [facility] [place] tobacco [place] [facility] [place] [facility] History [facility] CURRENT SMOKER 08[facility]16/2010 [facility] History of V1-PT THINKING 12/28/2009 [facility] N tobacco use ABOUT QUIT TOBACCO [facility] USE History of V1-PT DECLINES 03/20/2009 [facility] N [facility] History of CURRENT SMOKER 03/13/2009 just when he is [facility] tobacco use drinking. He [facility] can't stand it otherwise. Plan of Care List of future care activities from [facility] facilities. Additional future care activities may be listed in the Assessment and Plan section. Date/Time Care Activity Care Activity Detail Facility 03/26/2022 AMBULATORY - MEDICINE [facility] Advance Directives List of completed, amended, or rescinded Advance Directives on record at [facility] facilities. An actual copy of the Directive is not included. Date Advance Directive Provider Source 06/08/2014 ADVANCE DIRECT[facility]
--- OUTSIDE RECORDS SUMMARY | 2021-12-15 13:54 | XMS_ITS ---
:1955 Author Organization [facility] Address [address] [place] [id number] Support Name Relationship Address Phone BELA GAYTAN Unavailable [address] [facility] [address] BELA GAYTAN Unavailable [address] [facility] [address] Insurance Providers: All historical and current Section Date Range: From patient's date of to the date document was created.This section includes the names of all active insurance providers for the patient. Insurance Type of Plan Start of End of Group Member Insurance Policy P atient's Provider Coverage Name Policy Policy Number ID Provider's Greco's Relationship Coverage Coverage Telephone Name to Policy Number Greco [place] MED[place] MEDEX Aug 10 [id number] [phone] Cresencio GAYTAN PATIENT SUPPLEMEN 2 2018 [id number] [facility] Aug 10, [id number] [phone] Cresencio BENNETT PATIENT SUPPLEMEN 2 [id number] [facility] Aug 10 [id number] [phone] Cresencio GAYTAN PATIENT SUPPLEMEN 2 2018 [id number] JESSICA OSHEA OF MEDICARE MEDEX Aug 10, [id number] [phone] Cresencio BENNETT PATIENT MASS SUPPLEMEN 2 [id number] JESSICA [facility] Apr 10, [id number] [phone] Cresencio HEMPHILL PATIENT MASS PROVIDER OF 2009 [id number] JESSICA [facility] Aug 10, [id number] [phone] Cresencio GAYTAN PATIENT SERVICE OF 2016 [id number] JESSICA [facility]NSON [facility] Aug 10, [id number] [phone] Cresencio GAYTAN PATIENT [facility] OF 2016 [id number] JESSICA [facility] PRESCRIPT [facility] Aug 10, [id number] [phone] Cresencio BENNETT PATIENT PHARMACY ION OF 2016 [id number] JESSICA THOMPSON EXPRESS PRESCRIPT [facility] June 21, [facility] [id number] [phone] Cresencio BENNETT PATIENT SCRIPTS ION A 2010 91 9 JESSICA ([id number]) MEDICARE MEDICARE PART Aug 10, PART B [id number] [phone] Cresencio BENNETT PATIENT (WNR) (M) B 2018 [id number] JESSICA MEDICARE MEDICARE PART Aug 10, PART A [id number] [phone] ALDENCresencio ALFREDO PATIENT (WNR) (M) A 2018 [id number] 4 JESSICA MEDICARE MEDICARE PART Aug 10, PART A [id number] [phone] Cresencio BENNETT PATIENT (WNR) (M) A 2018 [id number] JESSICA MEDICARE MEDICARE PART Aug 10, PART B [id number] [phone] ALDENCresencio ALFREDO PATIENT (WNR) (M) B 2018 [id number] JESSICA Selected Encounter This section includes the information on record at [place] for the Encounter. Date/Time Encounter Type Encounter Reason Provider Source Description Oct 29, 2021 CLEAN/INSPECT DENTAL ICD-10-CM KIESHA YI 07:15 AM LAWANDA PART DENT K03.6 Deposits HDA [accretions] on teeth with Provider Comments: Deposits [accretions] on teeth IHE Encounter Template Text not used by [place] Assessments - Encounter Diagnoses This section includes the primary and secondary diagnoses documented for the Encounter. Date/Time Primary/Secondary Diagnosis Name Provider Source Diagnosis Oct 29, 2021 PRIMARY Deposits KIESHA YI [facility] N 07:47 AM [accretions] on HDA [facility] [facility] teeth Plan of Treatment: Future Appointments (+ 6 months) and Future Tests (+/- 45 days) The Plan of Treatment section includes future care activities for the patient from all [facility] treatment[facility]. This section includes future appointments and future orders which are active, pending orscheduled.Future Appointments This section includes appointments that were scheduled to occur 6 months from the date of the Encounter, up to a maximum of 20 appointments. The data comes from all [place] treatment facilities. Appointment Date/Time Appointment Type Appointment Corrinai elkin Name Mar 26, 2022 07:30 AM AMBULATORY - MEDICINE [facility] [place] [facility] Social History: Smoking Status (Most current) and Tobacco Use (All prior to encounter date) This section includes the most current, and the historical, smoking and tobacco-related health factors from the [place] facility where the Encounter took place.Current Smoking Status This section includes the most current smoking, or tobacco-related health factor, from the [place] facility where the Encounter took place. Date/Time Current Smoking Status Comment Facility Jul 19, 2021 10:25 AM VA-TOBACCO USER EVERY DAY [facility] [place] [facility] Tobacco Use History This section includes a history of the smoking, or tobacco- related health factors, that were collected on or before the date of the Encounter. The data comes from the [place] facility where the Encounter took place. 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 [facility] [place] [facility] Jul 19, 2021 10:25 VA-TOBACCO USE MED NO [facility] [place] [facility] Jul 19, 2021 10:25 VA-TOBACCO USER EVERY DAY [facility] [place] [facility] May 09, 2020 08:00 VA-TOBACCO FORMER USER [facility] AM [place] [facility] May 09, 2020 08:00 VA-TOBACCO QUIT < 1 YEAR VA C [facility] AM [place] [facility] Mar 23, 2019 09:01 VA-TOBACCO FORMER USER [facility] AM [place] [facility] Mar 23, 2019 09:01 VA-TOBACCO QUIT 5 TO < 15 [facility] AM YRS [place] [facility] Jan 19, 2018 08:24 VA-TOBACCO NEVER USED [facility] [place] [facility] Jan 17, 2017 08:30 QUIT TOBACCO USE > 7 [facility] AM YEARS AGO [place] [facility] Jan 17, 2017 08:30 QUIT TOBACCO USE 1-7 [facility] AM YEARS AGO [place] [facility] Apr 19, 2016 01:06 QUIT TOBACCO USE 1-7 [facility] PM YEARS AGO [place] [facility] May 05, 2014 08:45 QUIT TOBACCO USE 1-7 [facility] AM YEARS AGO [place] [facility] Apr 08, 2013 08:46 QUIT TOBACCO USE 1-7 [facility] AM YEARS AGO . [place] [facility] Jan 10, 2012 08:23 CURRENT SMOKER [facility] AM [place] [facility] Jan 10, 2012 08:23 V1-PT DECLINES REF TO [facility] Jan 10, 2012 08:23 V1-PT DECLINES TOBACCO [facility] AM CESSATION MEDS [place] [facility] Jan 10, 2012 08:23 V1-PT THINKING ABOUT QUIT [facility] AM TOBACCO USE [place] [facility] Apr 25, 2011 08:23 V1-PT DECLINES REF TO [facility] Apr 25, 2011 08:23 V1-PT DECLINES TOBACCO [facility] Apr 25, 2011 08:23 V1-PT THINKING ABOUT QUIT [facility] AM TOBACCO USE [place] [facility] Aug 16, 2010 09:12 CURRENT SMOKER [facility] AM 1 pk per wk [place] [facility] Aug 16, 2010 09:12 V1-PT DECLINES REF TO [facility] Aug 16, 2010 09:12 V1-PT DECLINES TOBACCO [facility] Aug 16, 2010 09:12 V1-PT NOT INTERESTED IN [facility] AM QUIT [facility] Dec 28, 2009 08:21 V1-PT DECLINES REF TO [facility] Dec 28, 2009 08:21 V1-PT THINKING ABOUT QUIT [facility] AM TOBACCO USE [place] [facility] Mar 20, 2009 10:53 V1-PT DECLINES REF TO [facility] AM TOBACCO CESS [facility] [place] Mar 20, 2009 10:53 V1-PT DECLINES TOBACCO [facility] Mar 20, 2009 10:53 V1-PT NOT INTERESTED IN [facility] AM QUIT [facility] Mar 13, 2009 09:37 CURRENT SMOKER [facility] N AM just when he is drinking. He can 't stand it otherwise. [facility] Advance Directives: All historical and current Section Date Range: From patient's date of to the date document was created. This section includes ALL of a patient's completed or amended [place] Advance and Rescinded Directives. The entries below indicate that a directive exists for the patient, but an actual copy is not included with this document. The data comes from all [place] facilities. Date Advance Directives Provider Source Jun 08, 2014 ADVANCE DIRECTIVE TARYN VILLATORO [facility] Encounter Notes: All associated encounter notes This section contains the clinical notes associated to the Encounter. Date/Time Encounter Note(s) Provider Source Oct 29, 2021 07:47 DENTISTRY NOTE: MARCUS YI [facility] WS TRN AM LOCAL TITLE: DENTAL NOTE [facility] STANDARD TITLE: DENTISTRY NOTE DATE OF NOTE: OCT 29, 2021@07:47 ENTRY DATE: OCT 29, 2021@07:47:39 AUTHOR: MARCUS YI EXP COSIGNER: URGENCY: STATUS: COMPLETED Patient Name: SOFIA GAYTAN, : [birth year], Age: 66 Visit: S: Oct 29, 2021@07:15 CWM/NO/DENTAL/RDH2 AM. Primary PCE Diagnosis: K03.6 (Deposits [accreti ons] on teeth). Dental Category: 15-OPC, Class IV. Treatment St atus: Maintenance. Completed Care: (D1110) DENTAL PROPHYLAXIS ADULT. DX: K03.6 Dep osits [Accretions] on Teeth (D1206) TOPICAL FLUORIDE VARNISH. DX: K03.6 Dep osits [Accretions] on Teeth (D1330) ORAL HYGIENE INSTRUCTION. DX: K03.6 Dep osits [Accretions] on Teeth (D9994) CASE MGMT-ORAL HEALTH LIT. DX: K03.6 Deposits [Accretions] on Teeth (D9932) CLEAN/INSPECT MAX COMP DENT. DX: K03.6 Deposits [Accretions] on Teeth (D9935) CLEAN/INSPECT LAWANDA PART DENT. DX: K03.6 Deposits [Accretions] on Teeth Periodontal Screening/Recording (PSR): X-X-X - - - X-2-2 Follow COVID-19 recommendations by ADA: TIME OUT/Safety goals were verified immediately prior to the procedure. (Correct patient, procedure, site, position) Ful l name and date used. STERILIZATION MONITOR IN INSTRUMENT PACK CHECKED AND CONFIRMED CC: NONE PAST MEDICAL HISTORY: Reviewed, no contraindicat ions for treatment LAST RADIOGRAPHS: PANO 11/29 BWX 05/27 Pa's 06/01 NEW RADIOGRAPHS: not due SOFT TISSUE SCREENING: no abnormalities noted EXAMINATION: not due ORAL HYGIENE ASSESSMENT: plaque light stain ligh t PERIODONTAL ASSESSMENT: calculus light inflamation light bop light probing deepth 2-4 mm recession general REVIEWED ORAL HEALTH REPORT: CARIES RISK: high GUM DISEASE: moderate ORAL CANCER RISK: high DENTAL TREATMENT PROVIDED: PROPHYLAXIS: hand sca ling, mx dentur cleaned welsh CLEAN/INSPECT MAX COMP DENT. CLEAN/INSPECT LAWANDA PART DENT. TOPICAL FLUORIDE APPLICATION - [place] pre post procedural rinse 30 seconds ORAL HYGIENE INSTRUCTIONS GIVEN TO PATIENT: revi ew cervical brushing technique recomended 2 times a day, review floss ing technique 2 times a day. Explain importance of daily plaque removal. Discuss possible cause of recession. DISPOSITION: 6 MONTHS RECARE Dental Alerts: PRE MED NOT NECESSARY PER ORTHOPEDIC 09/10/17 Oral Health Assessment Findings: Plaque Index: 1 - Slight Xerostomia: 1 - Slight Caries Risk: 3 - High Oral Hygiene: 1 - Good - - - - - - - - - - - - - - - - - - - - - - - - - - - - - - Nv: 6 mo recall and pa's /samir/ MARCUS YI [facility] Signed: 10/29/2021 07:47
--- OUTSIDE RECORDS SUMMARY | 2021-12-15 13:55 | XMS_ITS | Encounter Summary ---
:1955 Author Organization [facility] Address [address] [place] [id number] Support Name Relationship Address Phone BELA GAYTAN Unavailable [address] [place] [place] [address] BELA GAYTAN Unavailable [address] [place] [address] Insurance Providers: All historical and current Section Date Range: From patient's date of to the date document was created.This section includes the names of all active insurance providers for the patient. Insurance Type of Plan Start of End of Group Member Insurance Policy P atient's Provider Coverage Name Policy Policy Number ID Provider's Greco's Relationship Coverage Coverage Telephone Name to Policy Number [facility] Aug 10 [id number] [phone] Cresencio GAYTAN PATIENT SUPPLEMEN 2 2018 [id number] [facility] Aug 10 [id number] [phone] Cresencio GAYTAN PATIENT SUPPLEMEN 2 2018 [id number] [facility] MED[facility] Aug 10, [id number] [phone] Cresencio BENNETT PATIENT SUPPLEMEN 2 [id number] [facility] Aug 10, [id number] [phone] Cresencio BENNETT PATIENT MASS SUPPLEMEN 2 [id number] [facility] Apr 10, [id number] [phone] Cresencio HEMPHILL PATIENT MASS PROVIDER OF 2009 [id number] JESSICA ORGANIZAT FALL ION (PPO) [place] Aug [id number], [id number] [phone] Cresencio GAYTAN PATIENT SERVICE OF 2016 [id number] JESSICA [facility]ON [facility] Aug 10, [id number] [phone] Cresencio GAYTAN PATIENT BEHAVIORAL HEALTH OF 2016 [id number] JESSICA [facility] Aug 10, [id number] [phone] Cresencio BENNETT PATIENT PHARMACY ION OF 2016 [id number] JESSICA THOMPSON [facility] June 21, BRITTANY [id number] [phone] Cresencio BENNETT PATIENT SCRIPTS ION A 2010 91 9 JESSICA ([id number]) MEDICARE MEDICARE PART Aug 10, PART B [id number] [phone] Cresencio BENNETT PATIENT (WNR) (M) B 2018 [id number] 4 JESSICA MEDICARE MEDICARE PART Aug 10, PART A [id number] Cresencio BENNETT PATIENT (WNR) (M) A 2018 [id number] 4 JESSICA MEDICARE MEDICARE PART Aug 10, PART A [id number] [id number] Cresencio BENNETT PATIENT (WNR) (M) A 2018 [id number] JESSICA MEDICARE MEDICARE PART Aug 10, PART B [id number] [id number] Cresencio BENNETT PATIENT (WNR) (M) B 2018 [id number] JESSICA Selected Encounter This section includes the information on record at [place] for the Encounter. Date/Time Encounter Type Encounter Description Reason Provider Source Jul 19, 2021 10:25 Outpatient Encounter PRIMARY CARE/MEDICINE AM [facility] Encounter Template Text not used by [place] Plan of Treatment: Future Appointments (+ 6 months) and Future Tests (+/- 45 days) The Plan of Treatment section includes future care activities for the patient from all [place] treatmentfacilities. This section includes future appointments and future orders which are active, pending orscheduled.Future Appointments This section includes appointments that were scheduled to occur 6 months from the date of the Encounter, up to a maximum of 20 appointments. The data comes from all [place] treatment facilities. Appointment Date/Time Appointment Type Appointment Facili ty Name Aug 21, 2021 08:00 [facility] Aug 30, 2021 11:00 AM [facility] Oct 29, 2021 07:15 AM AMBULATORY - NONE [facility] [place] [facility] Social History: Smoking Status (Most current) and Tobacco Use (All prior to encounter date) This section includes the most current, and the historical, smoking and tobacco-related health factors from the [place] facility where the Encounter took place.Current Smoking Status This section includes the most current smoking, or tobacco-related health factor, from the [place] facility where the Encounter took place. Date/Time Current Smoking Status Comment Facility Jul 19, 2021 10:25 AM VA-TOBACCO USER EVERY DAY [place] [facility] [place] [facility] Tobacco Use History This section includes a history of the smoking, or tobacco- related health factors, that were collected on or before the date of the Encounter. The data comes from the [place] facility where the Encounter took place. 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 NO [facility] [place] [facility] Jul 19, 2021 10:25 VA-TOBACCO USE MED NO [facility] [place] [facility] Jul 19, 2021 10:25 VA-TOBACCO USER EVERY DAY [place] [facility] [place] [facility] May 09, 2020 08:00 VA-TOBACCO FORMER USER [facility] [place] [facility] May 09, 2020 08:00 VA-TOBACCO QUIT < 1 YEAR VA C [facility]L [facility] [place] [facility] Mar 23, 2019 09:01 VA-TOBACCO FORMER USER [facility] [place] [facility] Mar 23, 2019 09:01 VA-TOBACCO QUIT 5 TO < 15 [facility] [place] YRS [place] [facility] Jan 19, 2018 08:24 VA-TOBACCO NEVER USED [facility] [place] [facility] Jan 17, 2017 08:30 QUIT TOBACCO USE > 7 [facility] AM YEARS AGO [place] [facility] Jan 17, 2017 08:30 QUIT TOBACCO USE 1-7 [facility] AM YEARS AGO [place] [facility] Apr 19, 2016 01:06 QUIT TOBACCO USE 1-7 [facility] PM YEARS AGO [place] [facility] May 05, 2014 08:45 QUIT TOBACCO USE 1-7 [facility] AM YEARS AGO [place] [facility] Apr 08, 2013 08:46 QUIT TOBACCO USE 1-7 [facility] AM YEARS AGO . [place] [facility] Jan 10, 2012 08:23 CURRENT SMOKER [facility] [place] [facility] Jan 10, 2012 08:23 V1-PT DECLINES REF TO [facility] TOBACCO CESS PRGM [place] Jan 10, 2012 08:23 V1-PT DECLINES TOBACCO VA [facility] [place] CESSATION MEDS [place] [facility] Jan 10, 2012 08:23 V1-PT THINKING ABOUT QUIT [facility] [place] TOBACCO USE [place] [facility] Apr 25, 2011 08:23 V1-PT DECLINES REF TO [facility] [place]BACCO CESS [place] [place] [facility] Apr 25, 2011 08:23 V1-PT DECLINES TOBACCO [facility] Apr 25, 2011 08:23 V1-PT THINKING ABOUT QUIT [facility] [place] TOBACCO USE [place] [facility] Aug 16, 2010 09:12 CURRENT SMOKER [facility] AM 1 pk per wk [place] [facility] Aug 16, 2010 09:12 V1-PT DECLINES REF TO [facility]ACCO [facility]ESS [facility] Aug 16, 2010 09:12 V1-PT DECLINES TOBACCO VA CNT [facility] [place] CESSATION MEDS [place] [facility] Aug 16, 2010 09:12 V1-PT NOT INTERESTED IN [facility] CN TRL [facility] AM QUIT TOBACCO USE [place] [facility] Dec 28, 2009 08:21 V1-PT DECLINES REF TO [facility] [place] TOBACCO CESS [facility]GM [place] [facility] Dec 28, 2009 08:21 V1-PT THINKING ABOUT QUIT [facility] [place] TOBACCO USE [place] [facility] Mar 20, 2009 10:53 V1-PT DECLINES REF TO [facility] [place] TOBACCO CESS PRGM [place] [facility] Mar 20, 2009 10:53 V1-PT DECLINES TOBACCO [place] CNT RL WSTRN AM CESSATION MEDS [facility] Mar 20, 2009 10:53 V1-PT NOT INTERESTED IN [facility] TRL WSTRN AM QUIT [facility]BACCO [facility] Mar 13, 2009 09:37 CURRENT SMOKER [place] CNTRL WSTR N AM just when he is drinking. He can 't stand it otherwise. [facility] Advance Directives: All historical and current Section Date Range: From patient's date of to the date document was created. This section includes ALL of a patient's completed or amended [place] Advance and Rescinded Directives. The entries below indicate that a directive exists for the patient, but an actual copy is not included with this document. The data comes from all [place] facilities. Date Advance Directives Provider Source Jun 08, 2014 ADVANCE DIRECTIVE TARYN VILLATORO [place] [facility] [place] [facility] Encounter Notes: All associated encounter notes This section contains the clinical notes associated to the Encounter. Date/Time Encounter Note(s) Provider Source Jul 19, 2021 10:25 AM PREVENTIVE MEDICINE NURSING NOTE: Allison GOMEZ [facility] LOCAL TITLE: CLINICAL REMINDERS/NURSING E [facility] STANDARD TITLE: PREVENTIVE MEDICINE NURSING NOTE DATE OF NOTE: JUL 19, 2021@10:25 ENTRY DATE: JUL 19, 2021@10:25:36 AUTHOR: CAROLYNN GOMEZ EXP COSIGNER: URGENCY: STATUS: COMPLETED Advance Directive Screen: Patient has an Advance Directive on file at [facility]. No updates are needed at this time. The patient received education about Advance Di rectives and written notification of his/her rights. Suicide Screen: C-SSRS Screening [place] Suicide Severity Rating Scale (C-SSRS) screener 1. Over the past month, have you wished you wer e or wished you could go to sleep and not wake up? No 2. Over the past month, have you had any actual thoughts of killing yourself? No 3. Over the past month, have you been thinking about how you might do this? Response not required due to responses to other questions. 4. Over the past month, have you had these thou ghts and had some intention of acting on them? Response not required due to responses to other questions. 5. Over the past month, have you started to wor k out or worked out the details of how to kill yourself? Response not required due to responses to other questions. 6. If yes, at any time in the past month did yo u intend to carry out this plan? Response not required due to responses to other questions. 7. In your lifetime, have you ever done anythin g, started to do anything, or prepared to do anything to end you r life (for example, collected pills, obtained a gun, gave away valu sadie, went to the roof but didn't jump)? No 8. If YES, was this within the past 3 months? Response not required due to responses to other questions. Depression Screening: Perform PHQ-2 A PHQ-2 screen was performed. The score was 0 w hich is a negative screen for depression. Over the past two weeks, how often have you bee n bothered by the following problems? 1. Little interest or pleasure in doing things Not at all 2. Feeling down, depressed, or hopeless Not at all Homelessness/Food Insecurity Screen: In the past 2 months, have you been living in s table housing that you own, rent, or stay in as part of a household? Y es - Living in stable housing. Are you worried or concerned that in the next 2 months you may NOT have stable housing that you own, rent, or stay in a s part of a household? No - Not worried about housing near future [employer] reports the following: Within the past 12 months, you worried whether your food would run out before you got money to buy more. Never true Within the past 12 months, the food you bought just didn't last and you didn't have money to get more. Never true Relationship Health & Safety Screen: Screening is not completed at this time due to: Other: Reason: on speaker phone Tobacco Use Screening: The patient uses tobacco every day. The patient does not use tobacco within 30 benson antonio of waking up. The patient has been smoking or using tobacco f or thirty years or more. Patient was advised to quit smoking and/or usin g tobacco. Discussion with patient included: - Quitting smoking or tobacco use is one of the most important things you can do to protect and improve your h [facility] and [place] has the resources to support you. - Set a quit date when you are ready to quit. - Get support from your family and friends. - Review any past quit attempts- What helped? W hat didn't? - On the day you plan to quit, get rid of all c igarettes and tobacco products from your home, car or work. - Using a combination of behavioral counseling or other support strategies and FDA-approved cessation medicatio ns is the most effective way to ensure success in quitting. Patient was offered Behavioral Counseling and o ther support strategies to assist with quitting. Discussion with patient i ncluded: - Behavioral counseling or other support anni brice greatly increases your chances of successfully quitting smoking or tobacco use by helping you develop a quit plan and providing support and other strategies to make behavioral changes to help you quit. - [place] has a number of behavioral counseling opti ons to help you with quitting, including: * Provide information about the facility smokin g or tobacco use treatment options or clinics * [place]'s national quitline, 1-338-UCMY-VET, with counseling available Friday-Friday The patient was not interested in receiving add itional information about how to use the treatment options steve childress Patient was offered FDA-approved cessation medi cations. Discussion with patient included: - Medications for Nicotine replacement therapy such as the patch, gum or lozenge, and other medications phelps ch as varenicline or bupropion, can play an important role in the initial weeks and months after you quit smoking or tobacco us e. - Medications help with cravings and withdrawal symptoms and they greatly increase your chances of successfully q uitting. The patient was not interested in a prescriptio n for tobacco cessation medications. Alcohol Use Screen (AUDIT-C): Alcohol Screen: SCREEN FOR ALCOHOL (AUDIT-C) An alcohol screening test (AUDIT-C) was negativ e (score=0). 1. How often did you have a drink containing al cohol in the past year? Never 2. How many drinks containing alcohol did you h ave on a typical day when you were drinking in the past year? Response not required due to responses to other questions. 3. How often did you have six or more drinks on one occasion in the past year? Response not required due to responses to other questions. Tobacco Use Screening: The patient uses tobacco every day. The patient does not use tobacco within 30 benson antonio of waking up. The patient has been smoking or using tobacco f or thirty years or more. Patient was advised to quit smoking and/or usin g tobacco. Discussion with patient included: - Quitting smoking or tobacco use is one of the most important things you can do to protect and improve your h [place] and [place] has the resources to support you. - Set a quit date when you are ready to quit. - Get support from your family and friends. - Review any past quit attempts- What helped? W hat didn't? - On the day you plan to quit, get rid of all c igarettes and tobacco products from your home, car or work. - Using a combination of behavioral counseling or other support strategies and FDA-approved cessation medicatio ns is the most effective way to ensure success in quitting. Patient was offered Behavioral Counseling and o ther support strategies to assist with quitting. Discussion with patient i ncluded: - Behavioral counseling or other support anni brice greatly increases your chances of successfully quitting smoking or tobacco use by helping you develop a quit plan and providing support and other strategies to make behavioral changes to help you quit. - [place] has a number of behavioral counseling opti ons to help you with quitting, including: * Provide information about the facility smokin g or tobacco use treatment options or clinics * [place]'s national quitline, 8-892-TNWD-VET, with counseling available Friday-Friday The patient was not interested in receiving add itional information about how to use the treatment options steve childress Patient was offered FDA-approved cessation medi cations. Discussion with patient included: - Medications for Nicotine replacement therapy such as the patch, gum or lozenge, and other medications phelps ch as varenicline or bupropion, can play an important role in the initial weeks and months after you quit smoking or tobacco us e. - Medications help with cravings and withdrawal symptoms and they greatly increase your chances of successfully q uitting. The patient was not interested in a prescriptio n for tobacco cessation medications. /samir/ CAROLYNN GOMEZ LPN Signed: 07/19/2021 10:30
--- OUTSIDE RECORDS SUMMARY | 2021-12-15 13:55 | XMS_ITS | Encounter Summary ---
:1955 Author Organization [facility] Address [address] [place] [address] Support Name Relationship Address Phone BELA GAYTAN Unavailable [address] [facility] [place] [address] BELA GAYTAN Unavailable [address] [facility] [place] [address] Insurance Providers: All historical and current Section [...] Telephone Name to Policy Number [place] MED[place] MEDEX Aug 10 [id number] [phone] Cresencio GAYTAN PATIENT SUPPLEMEN 2 [id number] JESSICA [facility] MEDICARE MEDEX Aug 10 [id number] [phone] Cresencio GAYTAN PATIENT SUPPLEMEN 2 [id number] JESSICA [facility] MEDICARE MEDEX Aug 10, [id number] [phone] Cresencio BENNETT PATIENT SUPPLEMEN 2 [id number] JESSICA [place] OF MEDICARE MEDEX Aug 10, [id number] [phone] Cresencio BENNETT PATIENT MASS SUPPLEMEN 2 [id number] JESSICA ENWBERRY BCBS OF [facility] Apr 10, [id number] [phone] Cresencio HEMPHILL PATIENT MASS PROVIDER OF 2009 [id number] JESSICA ORGANIZAT FALL ION (PPO) [facility] [facility] Aug 10, [id number] [phone] Cresencio GAYTAN PATIENT SERVICE OF 2016 [id number] JESSICA [facility]NSON [facility] Aug 10, [id number] [phone] Cresencio GAYTAN PATIENT BEHAVIORAL HEALTH OF 2016 [id number] JESSICA [facility] SEVERINO JOHNSON PRESCRIPT [facility] Aug 10, [id number] [phone] Cresencio BENNETT PATIENT PHARMACY ION OF 2016 53 9 JESSICA THOMPSON EXPRESS PRESCRIPT [facility] June 21, [facility] [id number] [phone] Cresencio BENNETT PATIENT SCRIPTS ION A 2010 91 9 JESSICA ([id number]) MEDICARE MEDICARE PART Aug 10, PART A [id number] Cresencio BENNETT PATIENT (WNR) (M) A 2018 [id number] 4 JESSICA MEDICARE MEDICARE PART Aug 10, PART B [id number] Cresencio BENNETT PATIENT (WNR) (M) B 2018 [id number] 4 JESSICA MEDICARE MEDICARE PART Aug 10, PART A [id number] [phone] Cresencio BENNETT PATIENT (WNR) (M) A 2019 [id number] JESSICA MEDICARE MEDICARE PART Aug 10, PART B [id number] [phone] Cresencio BENNETT PATIENT (WNR) (M) B 2018 [id number] JESSICA Selected Encounter This section includes the information on record at [place] for the Encounter. Date/Time Encounter Type Encounter Reason Provider Source Description Aug 30, 2021 OFFICE O/P EST PRIMARY ICD-10-CM K21.9 MICHELLE,WILL 11:00 AM MOD 30-39 MIN CARE/MEDICINE Gastro-esophageal GONSALO F reflux disease without esophagitis with Provider Comments: Gastro-Esophageal Reflux Disease without Esophagitis IHE Encounter Template Text not used by [place] Assessments - Encounter Diagnoses This section includes the primary and secondary diagnoses documented for the Encounter. Date/Time Primary/Secondary Diagnosis Name Provider Source Diagnosis Aug 30, 2021 PRIMARY Gastro-esophageal MICHELLENAVA [place] [facility] 11:54 AM reflux disease YARELY [facility] [place] [facility] without esophagitis Aug 30, 2021 SECONDARY Abdominal [facility]54 AM aneurysm, without [facility] [place] [facility] rupture Aug 30, 2021 SECONDARY Body mass index NAVA CASTRO [place] [facility] WS TRN 11:54 AM [BMI] 39.0-39.9, YAERLY [facility] [place] [facility] adult Aug 30, 2021 SECONDARY Encounter for NAVA CASTRO [facility] 11:54 AM immunization YARELY F [place] [facility] Aug 30, 2021 SECONDARY Obesity, NAVA CASTRO [facility] 11:54 AM unspecified YARELY F [place] [facility] Aug 30, 2021 SECONDARY Unspecified atrial NAVA CASTRO [facility] 11:54 AM fibrillation YARELY F [place] [facility] Plan of Treatment: Future Appointments (+ 6 months) and Future Tests (+/- 45 days) The Plan of Treatment section includes future care activities for the patient from all [place] treatmentfacilities. This section includes future appointments and future orders which are active, pending orscheduled.Future Appointments This section includes appointments that were scheduled to occur 6 months from the date of the Encounter, up to a maximum of 20 appointments. The data comes from all [place] treatment facilities. Appointment Date/Time Appointment Type Appointment Facili ty Name Oct 29, 2021 07:15 AM AMBULATORY - NONE [facility] Lab Results: +/- 30 days of the encounter This section includes the Chemistry and Hematology Lab Results on record with [place] for the patient. Radiology Reports and Pathology Reports are provided separately, in subsequent sections.Lab Results This section contains the Chemistry/Hematology Results that were resulted 30 days before or 30 daysafter the date of the Encounter. Date/Time Source Result Type Result - Unit Interpretation Reference Range Comment Aug 21, 2021 07:26 [facility] Specimen Typ e: SERUM AM [facility] No comment enter ed. Ordering Provid er: SCARBLAISE REYNA Report Released Date/Time: Nov 09, 2020 09:00 AM Reporting Lab: [facility] [address] [facility] [address] Performing Lab: [facility] [address] [facility] [address] PROTEIN,TOTAL 7.1 6.0-8.3 ALBUMIN 3.9 3.5-5.0 ALKALINE PHOSPHATASE 72 40-150 AST 20 5-34 ALT 23 <6-55 BILIRUBIN, TOTAL 0.3 0.2-1.2 Aug 21, 2021 [facility] BASIC METABOLIC Specimen Type: SERUM 07:26 AM [place] [facility] PANEL (fasting) No comment enter ed. Ordering Provid er: BLAISE CASTRO Report Released Date/Time: Nov 09, 2020 09:00 AM Reporting Lab: [facility] [place] [facility] [address] [facility] [address] Performing Lab: [facility] [place] [facility] [address] [facility] [address] UREA NITROGEN 17 7-25 GLUCOSE 100 65-100 SODIUM 140 135-145 POTASSIUM 4.5 3.5-5.0 CHLORIDE 103 100-110 CO2 29 20-30 CREATININE, Serum 0.79 0.50-1.40 eGFR(CKD-EPI 2020) >90 >60 Aug 21, 2021 [facility] LIPID PANEL Specimen Type: SERUM 07:26 AM [place] [facility] FASTING No comment enter ed. Ordering Provid er: BLAISE CASTRO Report Released Date/Time: Nov 09, 2020 09:00 AM Reporting Lab: [facility] [place] [facility] [address] [facility] [address] Performing Lab: [facility] [place] [facility] [address] [facility] [address] CHOLESTEROL 144 <7-199 TRIGLYCERIDE 99 0-150 LDL calculated 70 0-129 CHOL/HDL 2.7 HDL CHOLESTEROL 54 40-60 Aug 21, 2021 07:26 AM [facility] [place] CBC Specimen Type: BLOOD HCS No comment enter ed. Ordering Provid er: BLAISE CASTRO Report Released Date/Time: Nov 09, 2020 09:00 AM Reporting Lab: [facility] [place] [facility] [address] [facility] [address] Performing Lab: [facility] [place] [facility] [address] [facility] [address] WBC 6.62 4.50-11.00 RBC 4.36 4.23-5.66 HGB 13.2 12.8-17 HCT 40.3 39.2-50.4 MCV 92.4 82-99 MCHC 32.8 30.8-35.1 PLT 250 140-360 RDW-CV 12.5 12.0-16.0 MCH 30.3 26.2-32.6 Vital Signs: All taken on the encounter date This section contains inpatient and outpatient Vital Signs collected on the date of the Encounter. Date/Time Temperature Pulse Blood Respiratory SP02 Pain Height Weight Marek dy Source Pressure Rate Mass Index Aug 30, 99.2 F 75 133/81 16 /min 97 % 0 304.4 39 [place] 2021 10:42 /min mm[Hg] lb CNTRL AM W[place] [facility] Immunizations: All administered on the encounter date This section contains immunizations associated to the Encounter. Immunization Series Date Issued Reaction Comments PNEUMOCOCCAL CONJUGATE PCV20, POLYSACCHARIDE Aug 30 [id number] CONJUGATE, ADJUVANT, PF Social History: Smoking Status (Most current) and Tobacco Use (All prior to encounter date) This section includes the most current, and the historical, smoking and tobacco-related health factors from the [place] facility where the Encounter took place.Current Smoking Status This section includes the most current smoking, or tobacco-related health factor, from the [place] facility where the Encounter took place. Date/Time Current Smoking Status Comment Facility Jul 19, 2021 10:25 AM VA-TOBACCO USER EVERY DAY [place] [facility] [place] [facility] Tobacco Use History This section includes a history of the smoking, or tobacco- related health factors, that were collected on or before the date of the Encounter. The data comes from the [place] facility where the Encounter took place. Date/Time Smoking Status/Tobacco Comment Facility Use Jul 19, 2021 10:25 VA-TOBACCO USE 30 YEARS [place] CN TRL WSTR[facility] AM OR MORE [place] [facility] Jul 19, 2021 10:25 VA-TOBACCO USE ADVICE [facility] [place] [facility] Jul 19, 2021 10:25 VA-TOBACCO USE ASTRO TECHNICIAN NO [facility] [place] [facility] Jul 19, 2021 10:25 VA-TOBACCO USE MED NO [facility] [place] [facility] Jul 19, 2021 10:25 VA-TOBACCO USER EVERY DAY [facility] [place] [facility] May 09, 2020 08:00 VA-TOBACCO FORMER USER [facility] CNT RL [facility]STR[facility] AM [place] [facility] May 09, 2020 08:00 VA-TOBACCO QUIT < 1 YEAR [facility] Mar 23, 2019 09:01 VA-TOBACCO FORMER USER VA CNT RL [facility]STRN AM [place] [facility] Mar 23, 2019 09:01 VA-TOBACCO QUIT 5 TO < 15 [facility] AM YRS [place] [facility] Jan 19, 2018 08:24 VA-TOBACCO NEVER USED [facility] AM [place] [facility] Jan 17, 2017 08:30 QUIT TOBACCO USE > 7 [facility] AM YEARS AGO [place] [facility] Jan 17, 2017 08:30 QUIT TOBACCO USE 1-7 [facility] AM YEARS AGO [place] [facility] Apr 19, 2016 01:06 QUIT TOBACCO USE 1-7 [facility] PM YEARS AGO [place] [facility] May 05, 2014 08:45 QUIT TOBACCO USE 1-7 [facility] AM YEARS AGO [place] [facility] Apr 08, 2013 08:46 QUIT TOBACCO USE 1-7 [facility] AM YEARS AGO . [place] [facility] Jan 10, 2012 08:23 CURRENT SMOKER [facility]STR N AM [place] [facility] Jan 10, 2012 08:23 V1-PT DECLINES REF TO [facility] CNTR L [facility] AM TOBACCO [facility]ESS [facility] Jan 10, 2012 08:23 V1-PT DECLINES TOBACCO [facility] CNT [facility] AM [facility] Jan 10, 2012 08:23 V1-PT THINKING ABOUT QUIT [facility] AM TOBACCO USE [place] [facility] Apr 25, 2011 08:23 V1-PT DECLINES REF TO [facility]ACCO [facility]ESS [facility] Apr 25, 2011 08:23 V1-PT DECLINES TOBACCO [facility] Apr 25, 2011 08:23 V1-PT THINKING ABOUT QUIT [facility]ACCO [facility] Aug 16, 2010 09:12 CURRENT SMOKER [facility] AM 1 pk per wk [facility] Aug 16, 2010 09:12 V1-PT DECLINES REF TO [facility] CN[facility] AM TOBACCO CESS PRGM [place] [facility] Aug 16, 2010 09:12 V1-PT DECLINES TOBACCO [facility] Aug 16, 2010 09:12 V1-PT NOT INTERESTED IN [facility] CN TRL [facility] AM QUIT TOBACCO USE [place] [facility] Dec 28, 2009 08:21 V1-PT DECLINES REF TO [facility] CN[facility] AM TOBACCO CESS [facility] Dec 28, 2009 08:21 V1-PT THINKING ABOUT QUIT [facility] AM TOBACCO USE [place] [facility] Mar 20, 2009 10:53 V1-PT DECLINES REF TO [facility] CN[facility] AM TOBACCO CESS [facility] Mar 20, 2009 10:53 V1-PT DECLINES TOBACCO VA CNT RL [facility] AM [facility] Mar 20, 2009 10:53 V1-PT NOT INTERESTED IN [facility] CN [facility] AM QUIT TOBACCO [facility] Mar 13, 2009 09:37 CURRENT SMOKER [facility] N AM just when he is drinking. He can 't stand it otherwise. [facility] Advance Directives: All historical and current Section Date Range: From patient's date of to the date document was created. This section includes ALL of a patient's completed or amended [place] Advance and Rescinded Directives. The entries below indicate that a directive exists for the patient, but an actual copy is not included with this document. The data comes from all [place] facilities. Date Advance Directives Provider Source Jun 08, 2014 ADVANCE DIRECTIVE TARYN VILLATORO [facility] Radiology Reports: +/- 30 days of the encounter Radiology Reports For cases when an order for radiology services may have been completed prior to the date of the Encounter, the report list includes the Radiology Reports that were completed up to 30 days before date of the Encounter. For cases when an order for radiology services may have been completed after the date of the Encounter, the report list also includes the Radiology Reports that were completed up to 30days after date of the Encounter. The data comes from all [place] treatment facilities. Date/Time Radiology Report Provider Source Aug 21, 2021 07:34 ABDOMINAL ULTRASOUND: RADIOLOGY,OUTSIDE [facility] AM SOFIA GAYTAN [id number] -SEP [phone] M SERVICE [place] [facility] Exm Date: AUG 21, 2021@07:34 Req Phys: BLAISE CASTRO Loc: CWM/NO/PA CT 3 (Req'g Loc) Img Loc: ULTRASOUND Service: Unknown (Case [id number] COMPLETE) ULTRASOUND AORTA (US Detaile d) CPT:71004 Reason for Study: follow known AAA. Clinical History: Report Status: Verified Date Reported: AUG 22, 2021 Date Verified: AUG 22, 2021 Reconciliation Accountant E-Sig: Report: Abdominal aortic ultrasound History: Follow known AAA Comparison: 08/08/2020 Technique: Transabdominal grayscale and Doppler images. Total of 2 series and 16 images received. Findings: The proximal abdominal aorta measures 2.6 cm. T he middle portion measures 2.5 cm. The distal aneurysm currently measures 3.1 x 3.3 cm, previously 3.4 x 3.6 cm. The right common iliac artery measures 1.3 cm. The left common iliac artery measures from 1.4 cm. Impression: The distal abdominal aortic aneurysm currently measures 3.3 cm, previously 3.6. This is likely within measureme nt error. READING PHYSICIAN: Gadiel Marcum M.D. -[id number] 08/22/2021 9:12 [facility] National Teleradiology Program [phone] (For Medical Practitioner Use Only ) [address] [place] [address], [place] [address], [address] [place] [address] Attention Patients / Veterans: If you have ques tions or concerns about these test results, please contact your [facility] provider or primary care team. Primary Diagnostic Code: NO ALERT REQUIRED Secondary Diagnostic Codes: ABDOMINAL AORTIC ANEURYSM PRESENT Primary Interpreting Staff: RADIOLOGY,OUTSIDE SERVICE, Staff Physician / Encounter Notes: All associated encounter notes This section contains the clinical notes associated to the Encounter. Date/Time Encounter Note(s) Provider Source Aug 30, 2021 11:23 PREVENTIVE MEDICINE NURSING NOTE: FELIPE SCHNEIDER [place] [facility] AM LOCAL TITLE: CLINICAL REMINDERS/NURSING [facility] STANDARD TITLE: PREVENTIVE MEDICINE NURSING NOTE DATE OF NOTE: AUG 30, 2021@11:23 ENTRY DATE: AUG 30, 2021@11:23:21 AUTHOR: ANISHA SCHNEIDER EXP COSIGNER: URGENCY: STATUS: COMPLETED Pneumococcal Conjugate Vaccine (PCV15/PCV20): The patient received pneumococcal conjugate vac cine PCV20 (Prevnar 20) 0.5ml IM today in Right Deltoid. 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 VIS version date Mar. /samir/ ANISHA SCHNEIDER LPN LICENSED PRACTICAL NURSE Signed: 08/30/2021 11:23 Aug 30, 2021 11:23 PHYSICIAN [facility] NOTE: BLAISE CASTRO CNTRL WSTRN LOCAL TITLE: DOUG OLSEN F JUSTIN Solitario [facility] STANDARD TITLE: PHYSICIAN [facility] NOTE DATE OF NOTE: AUG 30, 2021@11:23 ENTRY DATE: AUG 30, 2021@11:23:55 AUTHOR: BLAISE CASTRO EXP COSIGNER: URGENCY: STATUS: COMPLETED CC/HPI: 65 year old MALE here in follow-up for; Afib, outside cardiology obesity, declines move etc. gerd , daily use of PPI discouraged due to SEs, he will d/w outside GI. small aaa, us reviwed, repeat one year. Review of systems: Patient reports no changes from [facility] nor in meds or any admissions. Active problems - Computerized Problem List is t he source for the followin. AF- Atrial Fibrillation (SCT [id number]) 2. Abdominal aortic aneurysm 3.0 to 5.5 centime ters in male 3. Family history of colorectal cancer 4. History of total hip arthroplasty Left THR, [place] [facility]. 5. Hernia, Ventral 6. PTSD 7. Hand Injuries * 8. Counseling on Substance Use and Abuse 9. Alcohol Dependence 10. Hearing loss * 11. Tinnitus * 12. Obesity * 13. Sleep Apnea 14. Gastroesophageal Reflux Disorder * 15. Hypertension * 16. Urgency of urination VA and Non VA meds were reconciled with the mandie ent who left with a corrected copy. See medication page for details. Active and Recently Outpatient Medicatio ns (excluding Supplies): Active Outpatient Medications Status 1) APIXABAN 5MG TAB TAKE ONE TABLET BY MOUTH TWI CE DAILY ACTIVE 2) DRONEDARONE 400MG TAB TAKE ONE TABLET BY MOUT H TWICE ACTIVE DAILY 3) LISINOPRIL 10MG TAB TAKE ONE TABLET BY MOUTH ONCE ACTIVE DAILY TO CONTROL BLOOD PRESSURE 4) OMEPRAZOLE 20MG CAP,EC TAKE ONE CAPSULE BY MO UTH ACTIVE EVERY DAY Pending Outpatient Medications Status 1) APIXABAN 5MG TAB PENDING 2) DRONEDARONE 400MG TAB PENDING 3) LISINOPRIL 10MG TAB TAKE ONE TABLET BY MOUTH ONCE PENDING DAILY TO CONTROL BLOOD PRESSURE 4) OMEPRAZOLE 20MG CAP,EC TAKE ONE CAPSULE BY MO UTH PENDING EVERY DAY Active Non-VA Medications Status 1) Non-VA ARTIFICIAL TEARS POLYVINYL ALCOHOL 1 D ROP INTO ACTIVE EACH EYE THREE TIMES DAILY NEEDED 2) Non-VA FISH OIL (NO NEW STARTS - ON BACKORDER ) ACTIVE CAP,ORAL BY MOUTH 3) Non-VA MULTIVITAMIN/MINERALS CAP/TAB 1 TABLET BY ACTIVE MOUTH EVERY DAY 4) Non-VA ROSUVASTATIN TAB BY MOUTH ACTIVE 5) Non-VA VITAMIN D3 (CHOLECALCIFEROL) TAB BY MO UTH ACTIVE 13 Total Medications 99.2 F [37.3 C] (08/30/2021 10:42) 75 (08/30/2021 10:42) 16 (08/30/2021 10:42) 133/81 (08/30/2021 10:42) 0 (08/30/2021 10:42) 74 in [188.0 cm] (04/16/2019 08:07) 304.4 lb [138.07 kg] (08/30/2021 10:42) BMI: 39.2 Neuro: Alert and oriented times three, grossly n onfocal, nasolabial folds intact. Recent labs reviewed with doug engel today:yes, as well as US for AAA surveillance. BMI>30/>24.99 High Risk: At this visit, the health risks of obesity were reviewed and discussed with the , and the benefits of a weight management treatment program, such as MOVE! was discussed and offere d to the [place]. After discussing the health risks of being over weight or obese and providing information about available weight ma nagement treatment, and offering a referral to [facility] or another [facility] ht management treatment program outside the [facility], the patient D ECLINES REFERRAL to MOVE or any other weight management treatment baldemar acuña at this time. Statin Use CVD/DM: The patient is already on a statin. The patient is on a statin from a source outsid e [facility]. Medication list updated. COVID-19 Immunization: The patient declines an additional dose of vacc ine at this time. /samir/ Blaise Castro PA-C STAFF PHYSICIAN [facility] Signed: 08/30/2021 11:54
--- OUTSIDE RECORDS SUMMARY | 2021-12-15 13:55 | XMS_ITS ---
:1955 Author Organization [facility] Address [address] [place] [address] Support Name Relationship Address Phone BELA GAYTAN Unavailable [address] [facility] [place] [address] BELA GAYTAN Unavailable [address] [facility] [place] [address] Insurance Providers: All historical and current Section Date Range: From patient's date of to the date document was created.This section includes the names of all active insurance providers for the patient. Insurance Type of Plan Start of End of Group Member Insurance Policy P atient's Provider Coverage Name Policy Policy Number ID Provider's Greco's Relationship Coverage Coverage Telephone Name to Policy Number [facility] Aug 10 [id number] [phone] Cresencio GAYTAN PATIENT SUPPLEMEN 2 2018 [id number] 4 JESSICA [facility]BERRY [facility] MEDICARE MEDEX Aug 10 [id number] [phone] Cresencio GAYTAN PATIENT SUPPLEMEN 2 2018 [id number] 4 [facility] Aug 10, [id number] [phone] Cresencio BENNETT PATIENT SUPPLEMEN 2 2018 [id number] 4 JESSICA NEWBERRY [facility] MEDICARE MEDEX Aug 10, [id number] [phone] Cresencio BENNETT PATIENT MASS SUPPLEMEN 2 2018 [id number] JESSICA NEWBERRY [facility] Apr 10, [id number] [phone] Cresencio HEMPHILL PATIENT MASS PROVIDER OF 2009 [id number] JESSICA ORGANIZAT FALL ION (PPO) [facility] Aug 10, [id number] [phone] Cresencio GAYTAN PATIENT SERVICE OF 2016 [id number] 4 JESSICA JOHNSON [facility] Aug 10, [id number] [phone] Cresencio GAYTAN PATIENT BEHAVIORAL HEALTH OF 2016 [id number] JESSICA [facility] SEVERINO JOHNSON [facility] Aug 10, [id number] [phone] Cresencio BENNETT PATIENT PHARMACY ION OF 2016 [id number] JESSICA THOMPSON EXPRESS [facility] June 21, [facility] [id number] [phone] Cresencio BENNETT PATIENT SCRIPTS ION A 2010 91 9 JESSICA ([id number]) MEDICARE MEDICARE PART Aug 10, PART A [id number] ALDENCresencio ALFREDO PATIENT (WNR) (M) A 2018 [id number] 4 JESSICA MEDICARE MEDICARE PART Aug 10, PART B [id number] FLORESAnatoliy RobertCresencio PATIENT (WNR) (M) B 2018 [id number] 4 JESSICA MEDICARE MEDICARE PART Aug 10, PART A [id number] [phone] Cresencio BENNETT PATIENT (WNR) (M) A 2019 [id number] 00 JESSICA MEDICARE MEDICARE PART Aug 10, PART B [id number] [phone] ALDENLOPEZ JonesCresencio PATIENT (WNR) (M) B 2018 [id number] JESSICA Selected Encounter This section includes the information on record at [place] for the Encounter. Date/Time Encounter Type Encounter Reason Provider Source Description May 22, 2021 PERIODIC ORAL DENTAL ICD-10-CM K08.9 BONI CHANCE 08:45 AM EVAL EST Disorder of teeth and supporting structures, unspecified with Provider Comments: Disorder of teeth and supporting structures, unspecified IHE Encounter Template Text not used by [place] Assessments - Encounter Diagnoses This section includes the primary and secondary diagnoses documented for the Encounter. Date/Time Primary/Secondary Diagnosis Name Provider Source Diagnosis May 22, 2021 PRIMARY Disorder of teeth BONI CHANCE [place] CNTRL W STRN 05:52 PM and supporting [place] [facility] structures, unspecified Plan of Treatment: Future Appointments (+ 6 [...] 20 appointments. The data comes from all [place] treatment facilities. Appointment Date/Time Appointment Type Appointment Facili ty Name Aug 21, 2021 08:00 AM AMBULATORY - NONE [place] [facility] [place] [facility] Aug 30, 2021 11:00 AM AMBULATORY - MEDICINE [place] [facility] [facility] Oct 29, 2021 07:15 AM AMBULATORY - NONE [place] [facility] [facility] Vital Signs: All taken on the encounter date This section contains inpatient and outpatient Vital Signs collected on the date of the Encounter. Date/Time Temperature Pulse Blood Respiratory SP02 Pain Height Weight Marek dy Source Pressure Rate Mass Index May 22 118/69 [place] 2021 08:52 /min mm[Hg] CNTRL AM W[place]N [place] [facility] Social History: Smoking Status (Most current) and Tobacco Use (All prior to encounter date) This section includes the most current, and the historical, smoking and tobacco-related health factors from the [facility] facility where the Encounter took place.Current Smoking Status This section includes the most current smoking, or tobacco-related health factor, from the [facility] facility where the Encounter took place. Date/Time Current Smoking Status Comment Facility May 09, 2020 08:00 AM VA-TOBACCO FORMER USER [place] CNTRL WSTRN [place] [facility] Tobacco Use History This section includes a history of the smoking, or tobacco- related health factors, that were collected on or before the date of the Encounter. The data comes from the [place] facility where the Encounter took place. Date/Time Smoking Status/Tobacco Comment Facility Use May 09, 2020 08:00 VA-TOBACCO QUIT < 1 YEAR [place] C NTRL WSTRN AM [place] [facility] Mar 23, 2019 09:01 VA-TOBACCO FORMER USER [place] CNT RL WSTRN AM [place] [facility] Mar 23, 2019 09:01 VA-TOBACCO QUIT 5 TO < 15 VA CNTRL WSTRN AM YRS [place] [facility] Jan 19, 2018 08:24 VA-TOBACCO NEVER USED [place] CNTR L WSTRN AM [place] [facility] Jan 17, 2017 08:30 QUIT TOBACCO USE > 7 VA CNTRL WSTRN AM YEARS AGO [place] [facility] Jan 17, 2017 08:30 QUIT TOBACCO USE 1-7 VA CNTRL WSTRN AM YEARS AGO [place] [facility] Apr 19, 2016 01:06 QUIT TOBACCO USE 1-7 VA CNTRL WSTRN PM YEARS AGO [place] [facility] May 05, 2014 08:45 QUIT TOBACCO USE 1-7 VA CNTRL WSTRN AM YEARS AGO [place] [facility] Apr 08, 2013 08:46 QUIT TOBACCO USE 1-7 VA CNTRL WSTRN AM YEARS AGO . [place] [facility] Jan 10, 2012 08:23 CURRENT SMOKER VA CNTRL WSTR N AM [place] [facility] Jan 10, 2012 08:23 V1-PT DECLINES REF TO VA CNTR L WSTRN AM TOBACCO CESS PRGM [place] Jan 10, 2012 08:23 V1-PT DECLINES TOBACCO VA CNT RL WSTRN AM CESSATION MEDS [place] [facility] Jan 10, 2012 08:23 V1-PT THINKING ABOUT QUIT VA CNTRL WSTRN AM TOBACCO USE [place] [facility] Apr 25, 2011 08:23 V1-PT DECLINES REF TO VA CNTR L WSTRN AM TOBACCO CESS PRGM [place] [facility] Apr 25, 2011 08:23 V1-PT DECLINES TOBACCO VA CNT RL WSTRN AM CESSATION MEDS [place] [facility] Apr 25, 2011 08:23 V1-PT THINKING ABOUT QUIT VA CNTRL WSTRN AM TOBACCO USE [place] [facility] Aug 16, 2010 09:12 CURRENT SMOKER VA CNTRL WSTR N AM 1 pk per wk [place] [facility] Aug 16, 2010 09:12 V1-PT DECLINES REF TO VA CNTR L WSTRN AM TOBACCO CESS PRGM [place] [facility] Aug 16, 2010 09:12 V1-PT DECLINES TOBACCO VA CNT RL WSTRN AM CESSATION MEDS [place] [facility] Aug 16, 2010 09:12 V1-PT NOT INTERESTED IN VA CN TRL WSTRN AM QUIT TOBACCO USE [place] [facility] Dec 28, 2009 08:21 V1-PT DECLINES REF TO VA CNTR L WSTRN AM TOBACCO CESS PRGM [place] [facility] Dec 28, 2009 08:21 V1-PT THINKING ABOUT QUIT VA CNTRL WSTRN AM TOBACCO USE [place] [facility] Mar 20, 2009 10:53 V1-PT DECLINES REF TO VA CNTR L WSTRN AM TOBACCO CESS PRGM [place] Mar 20, 2009 10:53 V1-PT DECLINES TOBACCO VA CNT RL WSTRN AM CESSATION MEDS [place] [facility] Mar 20, 2009 10:53 V1-PT NOT INTERESTED IN VA CN TRL WSTRN AM QUIT TOBACCO USE [place] [facility] Mar 13, 2009 09:37 CURRENT SMOKER [place] CNTRL WSTR N AM just when he is drinking. He can 't stand it otherwise. [facility] Advance Directives: All historical and current Section Date Range: From patient's date of to the date document was created. This section includes ALL of a patient's completed or amended [place] Advance and Rescinded Directives. The entries below indicate that a directive exists for the patient, but an actual copy is not included with this document. The data comes from all [place] facilities. Date Advance Directives Provider Source Jun 08, 2014 ADVANCE DIRECTIVE TARYN VILLATORO [place] CN[facility] WSTR N [facility] Encounter Notes: All associated encounter notes This section contains the clinical notes associated to the Encounter. Date/Time Encounter Note(s) Provider Source May 22, 2021 05:52 PM DENTISTRY CONSULT: BONI CHANCE [place] CNTR L WSTRN LOCAL TITLE: CONSULT REPORT/DENTAL [place] [facility] STANDARD TITLE: DENTISTRY CONSULT DATE OF NOTE: MAY 22, 2021@17:52 ENTRY DATE: MAY 22, 2021@17:52:35 AUTHOR: BONI CHANCE EXP COSIGNER: URGENCY: STATUS: COMPLETED Please see dental note on 05/22/2021. /samir/ BONI CHANCE DMD Staff Dentist Signed: 05/22/2021 17:52 May 22, 2021 05:28 PM DENTISTRY NOTE: BONI CHANCE [place] CNTRL W STRN LOCAL TITLE: DENTAL NOTE [place] [facility] STANDARD TITLE: DENTISTRY NOTE DATE OF NOTE: MAY 22, 2021@17:28 ENTRY DATE: MAY 22, 2021@17:52:16 AUTHOR: BONI CHANCE EXP COSIGNER: URGENCY: STATUS: COMPLETED Patient Name: SOFIA GAYTAN, : [birth year], Age: 65 Visit: V: May 22, 2021@08:45 CWM/NO/DENTAL/DMD1 AM. Primary PCE Diagnosis: K08.9 (DISORDER OF TEETH AND SUPPORTING STRUCTURES, UNSPECIFIED). Dental Category: 15-OPC, Class IV. Treatment St atus: Maintenance. Completed Care: (D0120) PERIODIC ORAL EVAL EST. DX: K08.9 Disorder of Teeth and Supporting Stru ctures, unspecified (D0220) INTRAORAL PERIAPICAL FIRST. Tooth: 21. DX: K08.9 Disorder of Teeth and Supporting Stru ctures, unspecified (D0230) INTRAORAL PERIAPICAL EA ADD. Tooth: 22. DX: K08.9 Disorder of Teeth and Supporting Stru ctures, unspecified (D0230) INTRAORAL PERIAPICAL EA ADD. Tooth: 25. DX: K08.9 Disorder of Teeth and Supporting Stru ctures, unspecified (D0230) INTRAORAL PERIAPICAL EA ADD. Tooth: 27. DX: K08.9 Disorder of Teeth and Supporting Stru ctures, unspecified Presentation/Chief Complaint: Periodic oral evaluation during dental hygiene appointment. Haven't been wearing lower partial denture, hav en't been able to tolerate it. (lower flexible partial denture was made by ano ther provider) Time out performed. Used full name and court e. Checked and confirmed sterilization monitors in instrument packs. No reported symptoms of COVID-19. Patient rinsed with [employer] Enamel Care mouthwash at beginning of appointmen . Reviewed medical history. Medications were revie wed and reconciled within scope of dental service. All dental-related medi cations are up to date. Vital Signs: Dental Pain (0-10): 0 05/22/2021 08:52 Blood Pressure (mmHg): 118/69 05/22/2021 08:52 Pulse (BPM): 71 05/22/2021 08:52 Dental Alerts: NO PREMED NOT NECESSARY PER ORTHOPEDIC DRRobles SINCE 09/10/17 Intraoral and Extraoral Screening Exam Findings: 05/22/2021 Head and neck assessment with oral c ancer screening is negative: no apparent pathology noted. Oral soft tissues appear within normal limits No swelling Oral Examination: Oral Health Assessment Findings: Create Date: 05/22/2021 - ANGELITA NERI Plaque Index: 1 - Slight Xerostomia: 1 - Slight Caries Risk: 1 - Low Oral Hygiene: 2 - Fair Dentition exhibits no apparent evidence of dent al pathology at this visit Asymptomatic Unable to evaluate lower partial denture today. Patient did not bring it. No Significant Tooth Mobility Noted Generalized moderate horizontal bone loss PSR Exam: Create Date: 05/22/2021 - ANGELITA NERI X-X-X - - - X-2-2 Periodontal Assessment: Chronic Moderate Generalized Periodontitis Assessment/Plan: Evaluate lower partial denture at next visit whe n it is brought next time. Final treatment plan to be completed at a later time Disposition: Next dental visit: T+4w / evaluate lower partial denture *remind t o bring* Patient to return to dental clinic for continui ng care. - - - - - - - - - - - - - - - - - - - - - - - - - - - - - - /samir/ BONI CHANCE DMD Staff Dentist Signed: 05/22/2021 17:52
--- OUTSIDE RECORDS SUMMARY | 2021-12-15 13:55 | XMS_ITS ---
:1955 Author Organization [facility] Address [address] [place] [address] Support Name Relationship Address Phone BELA GAYTAN Unavailable [address] [place] [address] BELA GAYTAN Unavailable [address] [place] [address] Insurance Providers: All historical and current Section Date Range: From patient's date of to the date document was created.This section includes the names of all active insurance providers for the patient. Insurance Type of Plan Start of End of Group Member Insurance Policy P atient's Provider Coverage Name Policy Policy Number ID Provider's Greco's Relationship Coverage Coverage Telephone Name to Policy Number [facility] Aug 10 [id number] [phone] Cresencio GAYTAN PATIENT SUPPLEMEN 2 2018 [id number] 4 JESSICA [facility]BERRY [facility] MEDICARE MEDEX Aug 10 [id number] [phone] Cresencio GAYTAN PATIENT SUPPLEMEN 2 2018 [id number] 4 [facility] Aug 10, [id number] [phone] Cresencio BENNETT PATIENT SUPPLEMEN 2 2018 [id number] 4 JESSICA NEWBERRY [facility] MEDICARE MEDEX Aug 10, [id number] [phone] Cresencio BENNETT PATIENT MASS SUPPLEMEN 2 2018 [id number] 3 JESSICA NEWBERRY [facility] Apr 10, [id number] [phone] Cresencio HEMPHILL PATIENT MASS PROVIDER OF 2009 [id number] 3 JESSICA ORGANIZAT FALL ION (PPO) [facility] Aug 10, [id number] [phone] Cresencio GAYTAN PATIENT SERVICE OF 2016 [id number] 4 JESSICA JOHNSON [facility] Aug 10, [id number] [phone] Cresencio GAYTAN PATIENT BEHAVIORAL HEALTH OF 2016 [id number] JESSICA [facility] SEVERINO JOHNSON PRESCRIPT [facility] Aug 10, [id number] [phone] Cresencio BENNETT PATIENT PHARMACY ION OF 2016 53 9 JESSICA THOMPSON EXPRESS PRESCRIPT [facility] June 21, [facility] [id number] [phone] Cresencio BENNETT PATIENT SCRIPTS ION A 2010 91 9 JESSICA ([id number]) MEDICARE MEDICARE PART Aug 10, PART A [id number] [phone] Cresencio BENNETT PATIENT (WNR) (M) A 2018 [id number] 4 JESSICA MEDICARE MEDICARE PART Aug 10, PART B [id number] [phone] Cresencio BENNETT PATIENT (WNR) (M) B 2018 [id number] 4 JESSICA MEDICARE MEDICARE PART Aug 10, PART A [id number] [phone] Cresencio BENNETT PATIENT (WNR) (M) A 2019 [id number] 00 JESSICA MEDICARE MEDICARE PART Aug 10, PART B [id number] [phone] Cresencio BENNETT PATIENT (WNR) (M) B 2018 [id number] 00 JESSICA Selected Encounter This section includes the information on record at [place] for the Encounter. Date/Time Encounter Type Encounter Reason Provider Source Description May 22, 2021 DENTAL DENTAL ICD-10-CM KARTHIKEYAN NERI 08:30 AM PROPHYLAXIS ADULT K03.6 Deposits CE [accretions] on teeth with Provider Comments: Deposits [accretions] on teeth IHE Encounter Template Text not used by VA Assessments - Encounter Diagnoses This section includes the primary and secondary diagnoses documented for the Encounter. Date/Time Primary/Secondary Diagnosis Name Provider Source Diagnosis May 22, 2021 PRIMARY Deposits KARTHIKEYAN NERI [facility] WSTR N 11:10 AM [accretions] on [facility] [place] [facility] teeth May 22, 2021 SECONDARY Complete loss of KARTHIKEYAN NERI [facility] 11:10 AM teeth due to CE [place] [facility] caries, class I May 22, 2021 SECONDARY Disorder of teeth KARTHIKEYAN NERI [facility] 11:10 AM and supporting CE [place] [facility] structures, unspecified Plan of Treatment: Future Appointments (+ 6 months) and Future Tests (+/- 45 days) The Plan of Treatment section includes future care activities for the patient from all [place] treatmentfacilities. This section includes future appointments and future orders which are active, pending orscheduled.Future Appointments This section includes appointments that were scheduled to occur 6 months from the date of the Encounter, up to a maximum of 20 appointments. The data comes from all [place] treatment facilities. Appointment Date/Time Appointment Type Appointment Facili ty Name Aug 21, 2021 08:00 AM AMBULATORY - NONE [place] [facility] Aug 30, 2021 11:00 AM AMBULATORY - MEDICINE [place] [facility] [place] [facility] Oct 29, 2021 07:15 AM AMBULATORY - NONE [facility] Vital Signs: All taken on the encounter date This section contains inpatient and outpatient Vital Signs collected on the date of the Encounter. Date/Time Temperature Pulse Blood Respiratory SP02 Pain Height Weight Marek dy Source Pressure Rate Mass Index May 22 118/69 [place] 2021 08:52 /min mm[Hg] [facility] Social History: Smoking Status (Most current) and Tobacco Use (All prior to encounter date) This section includes the most current, and the historical, smoking and tobacco-related health factors from the [place] facility where the Encounter took place.Current Smoking Status This section includes the most current smoking, or tobacco-related health factor, from the [place] facility where the Encounter took place. Date/Time Current Smoking Status Comment Facility May 09, 2020 08:00 AM VA-TOBACCO FORMER USER [place] CNTR[facility] WSTR[facility] Tobacco Use History This section includes a history of the smoking, or tobacco- related health factors, that were collected on or before the date of the Encounter. The data comes from the [place] facility where the Encounter took place. Date/Time Smoking Status/Tobacco Comment Facility Use May 09, 2020 08:00 VA-TOBACCO QUIT < 1 YEAR [place] C NTRL WSTRN AM [place] [facility] Mar 23, 2019 09:01 VA-TOBACCO FORMER USER [place] CNT RL WSTRN AM [place] [facility] Mar 23, 2019 09:01 VA-TOBACCO QUIT 5 TO < 15 VA CNTRL WSTRN AM YRS [place] [facility] Jan 19, 2018 08:24 VA-TOBACCO NEVER USED VA CNTR L WSTRN AM [place] [facility] Jan 17, 2017 08:30 QUIT TOBACCO USE > 7 VA CNTRL WSTRN AM YEARS AGO [place] [facility] Jan 17, 2017 08:30 QUIT TOBACCO USE 1-7 VA CNTRL WSTRN AM YEARS AGO [place] [facility] Apr 19, 2016 01:06 QUIT TOBACCO USE 1-7 VA CNTRL WSTRN PM YEARS AGO [place] [facility] May 05, 2014 08:45 QUIT TOBACCO USE 1-7 VA CNTRL WSTRN AM YEARS AGO [place] [facility] Apr 08, 2013 08:46 QUIT TOBACCO USE 1-7 VA CNTRL WSTRN AM YEARS AGO . [place] [facility] Jan 10, 2012 08:23 CURRENT SMOKER VA CNTRL WSTR N AM [place] [facility] Jan 10, 2012 08:23 V1-PT DECLINES REF TO VA CNTR L WSTRN AM TOBACCO CESS PRGM [place] [facility] Jan 10, 2012 08:23 V1-PT DECLINES TOBACCO VA CNT RL WSTRN AM CESSATION MEDS [place] [facility] Jan 10, 2012 08:23 V1-PT THINKING ABOUT QUIT VA CNTRL WSTRN AM TOBACCO USE [place] [facility] Apr 25, 2011 08:23 V1-PT DECLINES REF TO VA CNTR L WSTRN AM [facility]ACCO [facility] Apr 25, 2011 08:23 V1-PT DECLINES TOBACCO VA CNT RL WSTRN [facility] Apr 25, 2011 08:23 V1-PT THINKING ABOUT QUIT VA CNTRL WSTRN AM TOBACCO USE [place] [facility] Aug 16, 2010 09:12 CURRENT SMOKER VA CNTRL WSTR N AM 1 pk per wk [place] [facility] Aug 16, 2010 09:12 V1-PT DECLINES REF TO VA CNTR L WSTRN AM [facility]ACCO [facility]ESS [facility] Aug 16, 2010 09:12 V1-PT DECLINES TOBACCO VA CNT RL WSTRN AM CESSATION MEDS [place] [facility] Aug 16, 2010 09:12 V1-PT NOT INTERESTED IN [place] CN TRL WSTRN AM QUIT TOBACCO USE [place] [facility] Dec 28, 2009 08:21 V1-PT DECLINES REF TO VA CNTR L WSTRN AM TOBACCO CESS PRGM [place] [facility] Dec 28, 2009 08:21 V1-PT THINKING ABOUT QUIT VA CNTRL WSTRN AM TOBACCO USE [place] [facility] Mar 20, 2009 10:53 V1-PT DECLINES REF TO VA CNTR L WSTRN AM TOBACCO CESS PRGM [place] [facility] Mar 20, 2009 10:53 V1-PT DECLINES TOBACCO VA CNT RL WSTRN AM CESSATION MEDS [place] [facility] Mar 20, 2009 10:53 V1-PT NOT INTERESTED IN [place] CN TRL WSTRN AM QUIT TOBACCO USE [place] [facility] Mar 13, 2009 09:37 CURRENT SMOKER [place] CNTRL WSTR N AM just when he is drinking. He can 't stand it otherwise. [facility] Advance Directives: All historical and current Section Date Range: From patient's date of to the date document was created. This section includes ALL of a patient's completed or amended [place] Advance and Rescinded Directives. The entries below indicate that a directive exists for the patient, but an actual copy is not included with this document. The data comes from all [place] facilities. Date Advance Directives Provider Source Jun 08, 2014 ADVANCE DIRECTIVE CRISTÓBALYUE YINCYNTHIA Peralta [place] CNTRL WSTR N [facility] Encounter Notes: All associated encounter notes This section contains the clinical notes associated to the Encounter. Date/Time Encounter Note(s) Provider Source May 22, 2021 11:06 DENTISTRY NOTE: ANGELITA NERI [facility] WST RN AM LOCAL TITLE: DENTAL NOTE [facility] STANDARD TITLE: DENTISTRY NOTE DATE OF NOTE: MAY 22, 2021@11:06 ENTRY DATE: MAY 22, 2021@11:10:55 AUTHOR: ANGELITA NERI EXP COSIGNER: URGENCY: STATUS: COMPLETED Patient Name: SOFIA GAYTAN, : [birth year], Age: 65 Visit: S: May 22, 2021@08:30 CWM/NO/DENTAL/RDH3 AM. Primary PCE Diagnosis: K03.6 (Deposits [accreti ons] on teeth). Dental Category: 15-OPC, Class IV. Treatment St atus: Maintenance. Completed Care: (D1330) ORAL HYGIENE INSTRUCTION. DX: K03.6 Dep osits [Accretions] on Teeth (D1206) TOPICAL FLUORIDE VARNISH. DX: K03.6 Dep osits [Accretions] on Teeth (D9994) CASE MGMT-ORAL HEALTH LIT. DX: K08.9 Disorder of Teeth and Supporting Stru ctures, unspecified (D9932) CLEAN/INSPECT MAX COMP DENT. 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 DX: K03.6 Dep osits [Accretions] on Teeth Periodontal Screening/Recording (PSR): X-X-X - - - X-2-2 Dental Alerts: NO PREMED NOT NECESSARY PER ORTHOPEDIC DRRobles SINCE 09/10/17 Oral Health Assessment Findings: Plaque Index: 1 - Slight Xerostomia: 1 - Slight Caries Risk: 1 - Low Oral Hygiene: 2 - Fair - - - - - - - - - - - - - - - - - - - - - - - - - - - - - - FOLLOWED ADA AND CDC COVID-19 RECOMMENDATIONS TIME OUT/Safety goals were verified immediately prior to the procedure. (Correct patient, procedure, site, position) Ful l name and date used. STERILIZATION MONITOR IN INSTRUMENT PACK CHECKED AND CONFIRMED CC: NONE PAST MEDICAL HISTORY: Reviewed, no contraindicat ions for treatment, PATIENT STATES HE HAS HAD COVID VACCINE, NO CURR ENT SYMPTOMS OR CONTACTS LAST RADIOGRAPHS: 11/29 BWX / PANO NEW RADIOGRAPHS: 4 BWXs VITAL SIGNS TAKEN: 118/69 P71 SOFT TISSUE SCREENING: no abnormalities noted EXAMINATION: COMPLETED BY DR CHANCE ORAL HYGIENE ASSESSMENT: Fair - pt. stated brush ing and uses soft picks daily; sl plaque deposits;hand instruments used; pt. tolerated tx well. PERIODONTAL ASSESSMENT:40-60% bone loss, mod rec ession, mod occlusal wear; recommended 6 months recall. REVIEWED ORAL HEALTH REPORT: CARIES RISK:H GUM DISEASE: H ORAL CANCER RISK: H DENTAL TREATMENT PROVIDED: PROPHYLAXIS - HAND SC ALED; POLISHED AND FLOSSED ALL SURFACES. TOPICAL FLUORIDE APPLICATION - Varnish PRE-RINSE WITH CREST FUD - CLEANED/INSPECTED ORAL HYGIENE INSTRUCTIONS GIVEN TO PATIENT: revi ew homecare; stressed the importance of oral hygiene at bedtime. Review ca re/instructions for dentures/partials. DISPOSITION: 6 MONTHS RECARE ANGELITA NERI RDRonni /samir/ ANGELITA NERI RDH Dental Hygienist Signed: 05/22/2021 11:10
--- OUTSIDE RECORDS SUMMARY | 2021-12-15 13:55 | XMS_ITS ---
:1955 Author Organization [facility] Address [address] [place] [id number] Support Name Relationship Address Phone BELA GAYTAN Unavailable [address] [facility] [place] [address] BELA GAYTAN Unavailable [address] [facility] [place] [address] Insurance Providers: All historical and current Section [...] Telephone Name to Policy Number [facility] Aug 10 [id number] [phone] Cresencio GAYTAN PATIENT SUPPLEMEN 2 [id number] [facility]ICA [facility] Aug 10 [id number] [phone] Cresencio GAYTAN PATIENT SUPPLEMEN 2 [id number] [facility] Aug 10, [id number] [phone] Cresencio BENNETT PATIENT SUPPLEMEN 2 [id number] [facility] Aug 10, [id number] [phone] Cresencio BENNETT PATIENT MASS SUPPLEMEN 2 [id number] [facility] Apr 10, [id number] [phone] Cresencio HEMPHILL PATIENT MASS PROVIDER OF 2009 [id number] JESSICA [facility]GAN[facility]AT [place] I[facility] (PP[place]) [place] Aug 10, [id number] [phone] Cresencio GAYTAN PATIENT SERVICE OF 2016 [id number] JESSICA [facility] Aug 10, [id number] [phone] Cresencio GAYTAN PATIENT BEHAVIORAL HEALTH OF 2016 [id number] JESSICA [facility] Aug 10, [id number] [phone] Cresencio BENNETT PATIENT PHARMACY ION OF 2016 [id number] 9 JESSICA [facility] June 21, BRITTANY [id number] [phone] Cresencio BENNETT PATIENT SCRIPTS ION A 2010 91 9 JESSICA ([id number]) MEDICARE MEDICARE PART Aug 10, PART A [id number] Cresencio BENNETT PATIENT (WNR) (M) A 2018 [id number] 4 JESSICA MEDICARE MEDICARE PART Aug 10, PART B [id number] Cresencio BENNETT PATIENT (WNR) (M) B 2018 [id number] 4 JESSICA MEDICARE MEDICARE PART Aug 10, PART A [id number] [phone] Cresencio BENNETT PATIENT (WNR) (M) A 2018 [id number] JESSICA MEDICARE MEDICARE PART Aug 10, PART B [id number] [phone] Cresencio BENNETT PATIENT (WNR) (M) B 2018 [id number] JESSICA Selected Encounter This section includes the information on record at [place] for the Encounter. Date/Time Encounter Type Encounter Description Reason Provider Source Jul 26, 2021 11:10 Outpatient Encounter PRIMARY CARE/MEDICINE AM IHE Encounter Template Text not used by [place] Plan of Treatment: Future Appointments (+ 6 [...] 21, 2021 08:00 [facility] Aug 30, 2021 11:00 AM [facility] - [facility]INE [facility] Oct 29, 2021 07:15 AM AMBULATORY - NONE [place] [facility] Lab Results: +/- 30 days of the encounter This section includes the Chemistry and Hematology Lab Results on record with [place] for the patient. Radiology Reports and Pathology Reports are provided separately, in subsequent sections.Lab Results This section contains the Chemistry/Hematology Results that were resulted 30 days before or 30 daysafter the date of the Encounter. Date/Time Source Result Type Result - Unit Interpretation Reference Range Comment Aug 21, [address] [facility] BASIC METABOLIC Specimen Type: SERUM 07:26 AM [place] [facility] PANEL (fasting) No comment enter ed. Ordering Provid er: BLAISE MARTINEZ Report Released Date/Time: Nov 09, 2020 09:00 AM Reporting Lab: [facility]N [facility] [address] [facility] [facility] [address] Performing Lab: [facility] [address] [facility] [facility] [address] UREA NITROGEN 17 7-25 GLUCOSE 100 65-100 SODIUM 140 135-145 POTASSIUM 4.5 3.5-5.0 CHLORIDE 103 100-110 CO2 29 20-30 CREATININE, Serum 0.79 0.50-1.40 eGFR(CKD-EPI 2020) >90 >60 Aug 21, 2021 [facility] LIPID PANEL Specimen Type: SERUM 07:26 AM [place] [facility] FASTING No comment enter ed. Ordering Provid er: BLAISE MARTINEZ Report Released Date/Time: Nov 09, 2020 09:00 AM Reporting Lab: [facility]ITALR[facility]ITALTRN [place] [facility] [address] [facility] [address] Performing Lab: [facility]ITALTRN [place] [facility] [address] [facility] [address] CHOLESTEROL 144 <7-199 TRIGLYCERIDE 99 0-150 LDL calculated 70 0-129 CHOL/HDL 2.7 HDL CHOLESTEROL 54 40-60 Aug 21, 2021 07:26 [place] [facility] LIVER FUNCTION Specimen Typ e: SERUM AM [place] [facility] No comment enter ed. Ordering Provid er: BLAISE MARTINEZ Report Released Date/Time: Nov 09, 2020 09:00 AM Reporting Lab: [facility]ITALRL W[facility]N [place] [facility] [address] [facility] [address] Performing Lab: [place] [facility] [facility] [address] [facility] [address] PROTEIN,TOTAL 7.1 6.0-8.3 ALBUMIN 3.9 3.5-5.0 ALKALINE PHOSPHATASE 72 40-150 AST 20 5-34 ALT 23 <6-55 BILIRUBIN, TOTAL 0.3 0.2-1.2 Aug 21, 2021 07:26 AM [place] [facility] CBC Specimen Type: BLOOD [facility] No comment enter ed. Ordering Provid er: BLAISE MARTINEZ Report Released Date/Time: Nov 09, 2020 09:00 AM Reporting Lab: [place] [facility] [place] [facility] [address] [facility] [facility] [address] Performing Lab: [place] [facility] [place] [facility] [address] [facility] [address] WBC 6.62 4.50-11.00 RBC 4.36 4.23-5.66 HGB 13.2 12.8-17 HCT 40.3 39.2-50.4 MCV 92.4 82-99 MCHC 32.8 30.8-35.1 PLT 250 140-360 RDW-CV 12.5 12.0-16.0 MCH 30.3 26.2-32.6 Social History: Smoking Status (Most current) and [...] 2021 10:25 AM VA-TOBACCO USER EVERY DAY [place] [facility] [facility] Tobacco Use History This section includes a history of the smoking, or tobacco- related health factors, that were collected on or before the date of the Encounter. The data comes from the [place] facility where the Encounter took place. 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 NO [facility] [place] [facility] Jul 19, 2021 10:25 VA-TOBACCO USE MED NO [facility] [place] [facility] Jul 19, 2021 10:25 VA-TOBACCO USER EVERY DAY [facility] [place] [facility] May 09, 2020 08:00 VA-TOBACCO FORMER USER VA CNT RL [facility]N AM [place] [facility] May 09, 2020 08:00 VA-TOBACCO QUIT < 1 YEAR VA C NTRL W[facility] AM [place] [facility] Mar 23, 2019 09:01 VA-TOBACCO FORMER USER VA CNT RL [facility] AM [place] [facility] Mar 23, 2019 09:01 VA-TOBACCO QUIT 5 TO < 15 [facility] Jan 19, 2018 08:24 VA-TOBACCO NEVER USED [facility] AM [place] [facility] Jan 17, 2017 08:30 QUIT TOBACCO USE > 7 VA CNTRL [facility] AM YEARS AGO [place] [facility] Jan 17, 2017 08:30 QUIT TOBACCO USE 1-7 [facility] CNTRL [facility] AM YEARS AGO [place] [facility] Apr 19, 2016 01:06 QUIT TOBACCO USE 1-7 [facility] PM YEARS AGO [place] [facility] May 05, 2014 08:45 QUIT TOBACCO USE 1-7 VA CNTRL [facility] AM YEARS AGO [place] [facility] Apr 08, 2013 08:46 QUIT TOBACCO USE 1-7 VA CNTRL [facility] AM YEARS AGO . [place] [facility] Jan 10, 2012 08:23 CURRENT SMOKER [facility]L [facility]STR N AM [place] [facility] Jan 10, 2012 08:23 V1-PT DECLINES REF TO [facility] L [facility] AM TOBACCO CESS PRGM [place] [facility] Jan 10, 2012 08:23 V1-PT DECLINES TOBACCO VA CNT RL WSTRN AM [facility]S [facility] Jan 10, 2012 08:23 V1-PT THINKING ABOUT QUIT [facility] AM TOBACCO USE [place] [facility] Apr 25, 2011 08:23 V1-PT DECLINES REF TO [facility] CN[facility] L [facility] AM TOBACCO CESS PRGM [place] Apr 25, 2011 08:23 V1-PT DECLINES TOBACCO VA CNT RL [facility] AM [facility] Apr 25, 2011 08:23 V1-PT THINKING ABOUT QUIT [facility] AM TOBACCO USE [place] [facility] Aug 16, 2010 09:12 CURRENT SMOKER VA CNTRL WSTR N AM 1 pk per wk [facility] Aug 16, 2010 09:12 V1-PT DECLINES REF TO [facility] CN[facility] L [facility] AM TOBACCO CESS PRGM [place] Aug 16, 2010 09:12 V1-PT DECLINES TOBACCO VA CNT RL [facility] AM [facility] Aug 16, 2010 09:12 V1-PT NOT INTERESTED IN [facility] CN TRL WSTRN AM QUIT TOBACCO USE [facility] Dec 28, 2009 08:21 V1-PT DECLINES REF TO [facility] CNTR L [facility] AM TOBACCO CESS [facility] Dec 28, 2009 08:21 V1-PT THINKING ABOUT QUIT [facility] AM TOBACCO USE [place] [facility] Mar 20, 2009 10:53 V1-PT DECLINES REF TO VA CNTR L [facility] AM TOBACCO CESS PRGM [facility] Mar 20, 2009 10:53 V1-PT DECLINES TOBACCO VA CNT RL [facility]STRN AM [facility]S [facility] Mar 20, 2009 10:53 V1-PT NOT INTERESTED IN [facility] CN TRL WSTRN AM QUIT TOBACCO USE [facility] Mar 13, 2009 09:37 CURRENT SMOKER VA CNTRL WSTR N AM just when he is drinking. He can 't stand it otherwise. [facility] Advance Directives: All historical and [...] DIRECTIVE TARYN VILLATORO [facility] Radiology Reports: +/- 30 days of the [...] the Encounter. The data comes from all [place] treatment facilities. Date/Time Radiology Report Provider Source Aug 21, 2021 07:34 ABDOMINAL ULTRASOUND: RADIOLOGY,OUTSIDE [facility] T[facility] [place] MOODY SOFIA GAYTAN EDLOU [id number] -SEP 10, [phone] 4 M SERVICE [facility] Ex Date: AUG 21, 2021@07:34 Req Phys: BLAISE MARTINEZ Loc: CWM/NO/PA CT 3 (Req'g Loc) Img Loc: ULTRASOUND Service: Unknown (Case [id number] COMPLETE) ULTRASOUND AORTA (US Detaile d) CPT:17722 Reason for Study: follow known AAA. Clinical History: Report Status: Verified Date Reported: AUG 22, 2021 Date Verified: AUG 22, 2021 Process Mold Technician E-Sig: Report: Abdominal aortic ultrasound History: Follow [...] nt error. READING PHYSICIAN: Gadiel Marcum M.D. -[id number] 08/22/2021 9:12 PDT [facility] National Teleradiology Program [phone] (For Medical Practitioner Use Only ) [address] [place] [address], [facility] [address], [address] [place] [address] Attention Patients / Veterans: If you have ques tions or concerns about these test results, please contact your [facility] provider or primary care team. Primary Diagnostic Code: NO ALERT REQUIRED Secondary Diagnostic Codes: ABDOMINAL AORTIC ANEURYSM PRESENT Primary Interpreting Staff: RADIOLOGY,OUTSIDE SERVICE, Staff Physician / Encounter Notes: All associated encounter notes This section contains the clinical notes associated to the Encounter. Date/Time Encounter Note(s) Provider Source Jul 26, 2021 11:10 AM PREVENTIVE MEDICINE NURSING NOTE: Allison GOMEZ CNTRL WSTRN LOCAL TITLE: CLINICAL REMINDERS/NURSING E [place] [facility] STANDARD TITLE: PREVENTIVE MEDICINE NURSING NOTE DATE OF NOTE: JUL 26, 2021@11:10 ENTRY DATE: JUL 26, 2021@11:10:52 AUTHOR: CAROLYNN GOMEZ EXP COSIGNER: URGENCY: STATUS: COMPLETED Relationship Health & Safety Screen: Environment is safe to proceed INFORMED CONSENT TO SCREEN & DOCUMENT: Individual consents to documentation? Yes Individual consents to proceed with screening? Yes PRIMARY SCREEN: In the past 12 months, how often did a current or former intimate partner (e.g., boyfriend, girlfriend, , , se xual partner): Scream or curse at you: Never Insult or talk down to you: Never Threaten you with harm: Never Physically hurt you: Never In the past 12 months, how often did a current or former intimate partner force or pressure you to have sexual co ntact against your will, or when you were unable to say no? Never PRIMARY SCREEN RESULTS: The individual denied all forms of IPV above (i .e., answered never to all 5 items above). ??The [employer] tool is [place] copyright protected by Zac Lipscomb MD, and the user has full rights to use it throughout the [employer] system. DISPOSITION: Provided general IPV education. /es/ CAROLYNN GOMEZ LPN Signed: 07/26/2021 11:11
--- OUTSIDE RECORDS SUMMARY | 2021-12-15 13:55 | XMS_ITS | Encounter Summary ---
:1955 Author Organization [facility] Address [address] [place] [id number] Support Name Relationship Address Phone BELA GAYTAN Unavailable [address] [facility] [place] [address] BELA GAYTAN Unavailable [address] [facility] [place] [address] Insurance Providers: All historical and current Section Date Range: From patient's date of to the date document was created.This section includes the names of all active insurance providers for the patient. Insurance Type of Plan Start of End of Group Member Insurance Policy P atient's Provider Coverage Name Policy Policy Number ID Provider's Greco's Relationship Coverage Coverage Telephone Name to Policy Number [facility] Aug 10 [id number] [phone] Cresencio GAYTAN PATIENT SUPPLEMEN 2 2018 [id number] JESSICA [facility] MEDICARE MEDEX Aug 10 [id number] [phone] Cresencio GAYTAN PATIENT SUPPLEMEN 2 2018 [id number] [facility] Aug 10, [id number] [phone] Cresencio BENNETT PATIENT SUPPLEMEN 2 [id number] JESSICA [facility] MEDICARE MEDEX Aug 10, [id number] [phone] Cresencio BENNETT PATIENT MASS SUPPLEMEN 2 [id number] JESSICA [facility] Apr 10, [id number] [phone] Cresencio HEMPHILL PATIENT [place] PROVIDER OF 2009 [id number] JESSICA [facility] FALL [facility]PPO[facility] Aug 10, [id number] [phone] Cresencio GAYTAN PATIENT SERVICE OF 2016 [id number] JESSICA JOHNSON [facility] Aug 10, [id number] [phone] Cresencio GAYTAN PATIENT BEHAVIORAL HEALTH OF 2016 [id number] JESSICA [facility] SEVERINO JOHNSON [facility] Aug 10, [id number] [phone] Cresencio BENNETT PATIENT PHARMACY ION OF 2016 [id number] JESSICA THOMPSON [facility] PRESCRIPT [facility] June 21, [facility] [id number] [phone] Cresencio BENNETT PATIENT SCRIPTS ION A 2010 91 9 JESSICA ([id number]) MEDICARE MEDICARE PART Aug 10, PART B [id number] [phone] Cresencio BENNETT PATIENT (WNR) (M) B 2018 [id number] 4 JESSICA MEDICARE MEDICARE PART Aug 10, PART A [id number] [phone] Cresencio BENNETT PATIENT (WNR) (M) A 2018 [id number] 4 JESSICA MEDICARE MEDICARE PART Aug 10, PART A [id number] [phone] Cresencio BENNETT PATIENT (WNR) (M) A 2019 [id number] JESSICA MEDICARE MEDICARE PART Aug 10, PART B [id number] [phone] Cresencio BENNETT PATIENT (WNR) (M) B 2018 [id number] JESSICA Selected Encounter This section includes the information on record at VA for the Encounter. Date/Time Encounter Type Encounter Reason Provider Source Description Mar 15, 2021 DETERMINE OPTOMETRY ICD-10-CM KELLI ALAN 07:30 AM REFRACTIVE STATE H43.813 E Vitreous degeneration, bilateral with Provider Comments: Vitreous Degeneration, Bilateral IHE Encounter Template Text not used by VA Assessments - Encounter Diagnoses This section includes the primary and secondary diagnoses documented for the Encounter. Date/Time Primary/Secondary Diagnosis Name Provider Source Diagnosis Mar 15, 2021 PRIMARY Vitreous CANDELARIO ALAN [facility] 12:58 PM degeneration, [facility] [place] [facility] bilateral Mar 15, 2021 SECONDARY Age-related nuclear CANDELARIO ALAN [facility] 12:58 PM cataract, bilateral [facility] [place] [facility] Mar 15, 2021 SECONDARY Dermatochalasis of CANDELARIO ALAN [facility] 12:58 PM left eye, [facility] [place] [facility] unspecified eyelid Mar 15, 2021 SECONDARY Dermatochalasis of CANDELARIO ALAN [facility] 12:58 PM right eye, [facility] [place] [facility] unspecified eyelid Mar 15, 2021 SECONDARY Dry eye syndrome of CANDELARIO ALAN [facility] 12:58 PM bilateral lacrimal [facility] [place] [facility] glands Mar 15, 2021 SECONDARY Other rosacea CANDELARIO ALAN [place] [facility] 12:58 PM [facility] [place] [facility] Plan of Treatment: Future Appointments (+ 6 months) and Future Tests (+/- 45 days) The Plan of Treatment section includes future care activities for the patient from all [place] treatmentfacilities. This section includes future appointments and future orders which are active, pending orscheduled.Future Appointments This section includes appointments that were scheduled to occur 6 months from the date of the Encounter, up to a maximum of 20 appointments. The data comes from all [place] treatment facilities. Appointment Date/Time Appointment Type Appointment Facili ty Name May 03, 2021 07:30 AM AMBULATORY - NONE [facility] [place] [facility] May 22, 2021 08:30 AM AMBULATORY - NONE [facility] [place] [facility] May 22, 2021 08:45 AM AMBULATORY - NONE [facility] [place] [facility] Aug 21, 2021 08:00 AM AMBULATORY - NONE [facility] [place] [facility] Aug 30, 2021 11:00 AM AMBULATORY - MEDICINE [facility] [place] [facility] Lab Results: +/- 30 days of the encounter This section includes the Chemistry and Hematology Lab Results on record with [place] for the patient. Radiology Reports and Pathology Reports are provided separately, in subsequent sections.Lab Results This section contains the Chemistry/Hematology Results that were resulted 30 days before or 30 daysafter the date of the Encounter. Date/Time Source Result Type Result - Unit Interpretation Reference Range Comment Mar 21, 2021 07:32 [facility] LIVER FUNCTION Specimen Typ e: SERUM [place] [facility] No comment enter ed. Ordering Provid er: BLAISE MARTINEZ Report Released Date/Time: Feb 21, 2021 02:44 PM Reporting Lab: [place] [facility] [place] [address] [place] [address] Performing Lab: [facility] [place] [facility] [address] [facility] [address] PROTEIN,TOTAL 7.4 6.0-8.3 ALBUMIN 3.9 3.5-5.0 ALKALINE PHOSPHATASE 69 40-150 AST 23 5-34 ALT 26 <6-55 BILIRUBIN, TOTAL 0.4 0.2-1.2 Mar 21, 2021 [facility] LIPID PANEL Specimen Type: SERUM 07:32 [facility] [place] [facility] FASTING No comment enter ed. Ordering Provid er: BLAISE MARTINEZ Report Released Date/Time: Feb 21, 2021 02:44 PM Reporting [facility] [place] [facility] [address] [facility] [address] Performing Lab: [facility] [address] [facility] [address] CHOLESTEROL 140 <7-199 TRIGLYCERIDE 115 0-150 LDL calculated 66 0-129 CHOL/HDL 2.7 HDL CHOLESTEROL 51 40-60 Mar 21, 2021 07:32 AM [facility] [place] CBC Specimen Type: BLOOD H[facility] No comment enter ed. Ordering Provid er: BLAISE MARTINEZ Report Released Date/Time: Feb 21, 2021 02:44 PM Reporting [facility] [place] [facility] [address] [facility] [address] [facility]: [facility] [place] [facility] [address] [facility] [address] WBC 7.03 4.50-11.00 RBC 4.34 4.23-5.66 HGB 13.3 12.8-17 HCT 40.3 39.2-50.4 MCV 92.9 82-99 MCHC 33.0 30.8-35.1 PLT 250 140-360 RDW-CV 12.9 12.0-16.0 MCH 30.6 26.2-32.6 Mar 21, 2021 [facility] BASIC METABOLIC Specimen Type: SERUM 07:32 [facility] [place] [facility] PANEL (fasting) No comment enter ed. Ordering Provid er: BLAISE MARTINEZ Report Released Date/Time: Feb 21, 2021 02:44 PM Reporting Lab: [facility] [place] [facility] [address] [facility] [address] Performing Lab: [facility] [place] [facility] [address] [facility] [address] UREA NITROGEN 15 7-25 GLUCOSE 100 65-100 SODIUM 138 135-145 POTASSIUM 4.6 3.5-5.0 CHLORIDE 100 100-110 CO2 29 20-30 CREATININE, Serum 0.82 0.50-1.40 eGFR (IDMS) 94 >60 Social History: Smoking Status (Most current) and Tobacco Use (All prior to encounter date) This section includes the most current, and the historical, smoking and tobacco-related health factors from the [place] facility where the Encounter took place.Current Smoking Status This section includes the most current smoking, or tobacco-related health factor, from the [place] facility where the Encounter took place. Date/Time Current Smoking Status Comment Facility May 09, 2020 08:00 AM VA-TOBACCO FORMER USER [place] [facility] Tobacco Use History This section includes a history of the smoking, or tobacco- related health factors, that were collected on or before the date of the Encounter. The data comes from the [place] facility where the Encounter took place. Date/Time Smoking Status/Tobacco Comment Facility Use May 09, 2020 08:00 VA-TOBACCO QUIT < 1 YEAR [facility] [place] [facility] Mar 23, 2019 09:01 VA-TOBACCO FORMER USER [facility] [place] [facility] Mar 23, 2019 09:01 VA-TOBACCO QUIT 5 TO < 15 [facility] AM YRS [place] [facility] Jan 19, 2018 08:24 VA-TOBACCO NEVER USED [facility] [place] [facility] Jan 17, 2017 08:30 QUIT TOBACCO USE > 7 [facility] AM YEARS AGO [place] [facility] Jan 17, 2017 08:30 QUIT TOBACCO USE 1-7 [facility] AM YEARS AGO [place] [facility] Apr 19, 2016 01:06 QUIT TOBACCO USE 1-7 [facility] PM [facility] May 05, 2014 08:45 QUIT TOBACCO USE 1-7 [facility] AM YEARS A[place] [facility] Apr 08, 2013 08:46 QUIT TOBACCO USE 1-7 [facility] AM YEARS AGO . [place] [facility] Jan 10, 2012 08:23 CURRENT SMOKER [facility] [place] [facility] Jan 10, 2012 08:23 V1-PT DECLINES REF TO [facility] AM TO[place]ACCO CESS PRGM [place] Jan 10, 2012 08:23 V1-PT DECLINES TOBACCO [facility] AM CESSATION MEDS [place] [facility] Jan 10, 2012 08:23 V1-PT THINKING ABOUT QUIT [facility] AM TOBACCO USE [place] [facility] Apr 25, 2011 08:23 V1-PT DECLINES REF TO [facility] AM TOBACCO CESS [facility] [place] Apr 25, 2011 08:23 V1-PT DECLINES TOBACCO [facility] Apr 25, 2011 08:23 V1-PT THINKING ABOUT QUIT [facility] AM TOBACCO USE [place] [facility] Aug 16, 2010 09:12 CURRENT SMOKER [facility] AM 1 pk per wk [facility] Aug 16, 2010 09:12 V1-PT DECLINES REF TO [facility] AM TOBACCO CESS PRGM [facility] Aug 16, 2010 09:12 V1-PT DECLINES TOBACCO VA [facility] AM [facility] MEDS [facility] Aug 16, 2010 09:12 V1-PT NOT INTERESTED IN VA CN TRL [facility] AM QUIT TOBACCO USE [place] [facility] Dec 28, 2009 08:21 V1-PT DECLINES REF TO VA CNTR L [facility] AM TOBACCO CESS [place] [facility] Dec 28, 2009 08:21 V1-PT THINKING ABOUT QUIT [facility] AM TOBACCO USE [place] [facility] Mar 20, 2009 10:53 V1-PT DECLINES REF TO VA CN[facility] AM TOBACCO CESS PRGM [facility] Mar 20, 2009 10:53 V1-PT DECLINES TOBACCO VA [facility] AM [facility]ATION MEDS [facility] Mar 20, 2009 10:53 V1-PT NOT INTERESTED IN [facility] CN [facility] AM QUIT TOBACCO USE [place] [facility] Mar 13, 2009 09:37 [facility]RENT [facility] AM just when he is drinking. He can 't stand it otherwise. [facility] Advance Directives: All historical and current Section Date Range: From patient's date of to the date document was created. This section includes ALL of a patient's completed or amended [place] Advance and Rescinded Directives. The entries below indicate that a directive exists for the patient, but an actual copy is not included with this document. The data comes from all [place] facilities. Date Advance Directives Provider Source Jun 08, 2014 ADVANCE DIRECTIVE TARYN [facility]ILL[facility]O [facility] Encounter Notes: All associated encounter notes This section contains the clinical notes associated to the Encounter. Date/Time Encounter Note(s) Provider Source Mar 22, 2021 06:13 LETTERS: BLAISE MARTINEZ [facility] WS TRN PM LOCAL TITLE: PATIENT LETTER (T) F [facility] STANDARD TITLE: LETTERS DATE OF NOTE: MAR 22, 2021@18:13 ENTRY DATE: MAR 22, 2021@18:13:06 AUTHOR: BLAISE MARTINEZ EXP COSIGNER: URGENCY: STATUS: COMPLETED [facility] Toll Free Number Primary Care Telephone Assistance can be reached at extension [phone] [facility] scheduling can be reac hed at extension [phone] [facility] scheduling can be madhuri ched at ext [phone] SOFIA GAYTAN [address], [place], [address] Dear , Your labs were fine. Please schedule an apt to d iscuss this and other health issues. Sincerely, Your Primary Care Team [facility] [address] [facility] [address] [place] [address] [place] [address] [phone] [facility] [address] [place] [address] [place] [address] [phone] [facility] [address] [facility] [address] [place] [address] [place], [place] [id number] [phone] Mar 15, 2021 08:51 OPTOMETRY NOTE: LENORE FINN [facility] AM LOCAL TITLE: OPTOMETRY NOTE [facility] STANDARD TITLE: OPTOMETRY NOTE DATE OF NOTE: MAR 15, 2021@08:51 ENTRY DATE: MAR 15, 2021@08:51:37 AUTHOR: LENORE FINN EXP COSIGNER: URGENCY: STATUS: COMPLETED Korrect Education Officer fit patient with 1 pair of DV w /photochromic eyeglasses. Ordered as requested. Korrect Education Officer fit patient with 1 pair of NV e yeglasses. Ordered as requested. /samir/ LENORE SHAH [facility] Signed: 03/15/2021 08:51 Mar 15, 2021 07:45 [facility]OMET[facility] LOCAL TITLE: OPTOMETRY NOTE [facility] STANDARD TITLE: OPTOMETRY NOTE DATE OF NOTE: MAR 15, 2021@07:45 ENTRY DATE: MAR 15, 2021@07:45:54 AUTHOR: ANDRIY ALAN EXP COSIGNER: URGENCY: STATUS: COMPLETED Active problems - Computerized Problem List is t he source for the followin. AF- Atrial Fibrillation ([facility] [id number]) 2. Abdominal aortic aneurysm 3.0 to 5.5 centime ters in male 3. Family history of colorectal cancer 4. History of total hip arthroplasty 5. Hernia, Ventral 6. PTSD 7. Hand Injuries * 8. Counseling on Substance Use and Abuse 9. Alcohol Dependence 10. Hearing loss * 11. Tinnitus * 12. Obesity * 13. Sleep Apnea 14. Gastroesophageal Reflux Disorder * 15. Hypertension * 16. Urgency of urination Active Outpatient Medications (including Supplie s): Active Outpatient Medications Status 1) APIXABAN 5MG TAB TAKE ONE TABLET BY MOUTH TWI CE DAILY ACTIVE 2) DRONEDARONE 400MG TAB TAKE ONE TABLET BY MOUT H TWICE ACTIVE DAILY 3) LISINOPRIL 10MG TAB TAKE ONE TABLET BY MOUTH ONCE ACTIVE DAILY TO CONTROL BLOOD PRESSURE 4) OMEPRAZOLE 20MG CAP,EC TAKE ONE CAPSULE BY MO UTH ACTIVE EVERY DAY Active Non-VA Medications Status 1) Non-VA FISH OIL CAP,ORAL BY MOUTH ACTIVE 2) Non-VA MULTIVITAMIN/MINERALS CAP/TAB 1 TABLET BY ACTIVE MOUTH EVERY DAY 3) Non-VA ROSUVASTATIN TAB BY MOUTH ACTIVE 4) Non-VA VITAMIN D3 (CHOLECALCIFEROL) TAB BY MO UTH ACTIVE 8 Total Medications Allergies: MORPHINE, CODEINE All medications including th ose prescribed by outside VA's, community providers, and all OTC meds were review ed and reconciled with patient to the best of their abilities. This 65 year old MALE is seen today for comprehe nsive eye examination. Medical, eye, personal, and social history are all reviewed and is contributory to today's visit. History of rosacea facies with meibomian gland dysfunction and mild dry eye disease as well as bilateral ca taracts of previous posterior vitreous detachment left eye. His last eye examination was here in March. He presents today complaining of flashes and otto aters right eye for approximately 6 months. (-) Pain: (-) SHEPHERD: (-) Diplopia: (+) Flashes: x 6 months right eye (+) Floaters: x 6 months right eye (-) Amaurosis Fugax/Tia's: (-) Eye Injury: (-) Eye Surgery: (-) TBI: Family Ocular Hx: (-) Glaucoma, blindness Chief Complaint: Flashes and floaters ri ght eye for approximately 6 months. He continues to struggle with using bifocals and wa nt to switch to separate distance and near vision only glasses. Vision: With 20/20 - right eye 20/20 - left eye Without Correction Pupils, EOMS, confrontation cordon are a ll done and show round slightly miotic and minimally reactive pupils with afferent pupi llary defect with full extraocular motility and full confrontation fiel ds to finger counting Current Wear: OD: +1.25 -0.50 axis 045 OS: +0.75 -0.25 axis 105 +2.25 add Refraction: OD: +1.50 -0.50 axis 045 20/20 OS: +1.00 -0.25 axis 105 20/20 +2.25 add 20/20 Tonometry: 17 OD 17 OS Time: 7:39 AM dilated wit h tropicamide 1% and phenylephrine 2.5% each eye after dilation prasanth jones given and verbal consent obtained PreTreatment IOP: OD OS Pachymetry: Florid rosacea facies with rhinophyma Anterior segment: Lids: Dermatochalasis with vinod dwinking ptosis left greater than right upper lid with 1+ lower lid bags and chronic meibomian gland dysfunction each eye Conj: Trace chronic injection each eye Cornea: Clear centrally without staining or pig ment but reduced tear break-up time each eye AC:3 and quiet each eye Iris: Normal each eye Lens: 1+ nuclear sclerosis each eye Vit: Posterior vitreous detachment each eye Fundus exam: Dilated:xxx Non dilated: C/D: 0.20 right eye 0.25 left eye with good col or and distinct disc margins Macula: Normal each eye A/V: 1/2 each eye Vessels: Normal each eye Periphery: No holes, tears, detachment Impression: Facial and ocula r rosacea with meibomian gland dysfunction and mild dry eye disease currently wi thout corneal staining but with reduced tear break- up time as previously noted. This is non -VA [id number] lubricating drops as needed with good effect. Early nuclear sclerotic cataracts not visually s ignificant at present. Previous posterior vitreous detachment left eye currently asymptomatic with regard to floaters or flashes. New posterior vitreous detachment right eye with complaint of flashes and floaters for 6 months. There is no evidence of r etinal hole, tear, detachment noted in either eye. History of atrial fibrillati on on Dronedone which is not associated with ocular toxicity or keratopathy. Plan: Patient education as noted above update gl asses now. Encourage more consistent and frequent use of lubricating drop for mild dry eye disease. Reviewed signs and symptoms of posterior vitreou s detachment versus retinal hole, tear, detachment. Specifically discussed w ere worsening flashes with increasing floaters with or without decrease or missing vision are all the potential signs and symptoms of a more concernin g problem such as a retinal hole, tear, detachment which would warrant immed iate evaluation. Patient verbalizes understanding of differentiation of s ymptoms currently began experience from posterior vitreous detachment as well as possible symptoms of retinal hole, tear, detachment and what to do if he were to experience such symptoms. Education: Patient was advised of the s ymptoms PVD vs RD that is increase flashes, floaters and decreased vision. Patient understands to ryan l or seek care immediately if they notice increase flashes, floaters and or de creased vision. Return to Clinic 12 months or sooner if need be. Ophthalmic medication reconciliation: The patien t indicates he uses VA lubricating drops as needed for relief of occasi onal dry eyes symptoms. Medication Reconciliation: Outpatient: Has the patient been taking medications as docu mented in the EMLR? YES: The patient has been taking medications as documented in the EMLR. Essential Medication List for Review used to co mplete this medication reconciliation. INCLUDED IN THIS LIST: Alphabetical list of act peggy outpatient prescriptions dispensed from this VA (local) an d dispensed from another VA or [facility] facility (remote) as well as inpatien t orders (local, pending and active), local clinic medications, locally documented non-VA medications, and local prescriptions that have or been discontinued in the past 90 days. - All changes in medications, including all non -VA/Herbal/OTC medications were entered into CPRS. Changes: non VA tears as needed - If there were any medications the patient nevin uld no longer take, they were discontinued. - The patient/caregiver was instructed to updat e this list, discard old lists, and take this list to the next appointme nt, whether with a VA or non-VA provider. /samir/ Andriy Alan OD CHIEF OF OPTOMETRY Signed: 03/15/2021 12:58
--- OUTSIDE RECORDS SUMMARY | 2021-12-15 13:55 | XMS_ITS ---
:1955 Author Organization [facility] Address [address] [place] [address] Support Name Relationship Address Phone BELA GAYTAN Unavailable [address] [facility] [place] [address] BELA GAYTAN Unavailable [address] [facility] [place] [address] Insurance Providers: All historical and current Section [...] Telephone Name to Policy Number Greco [place] MED[place] Aug 10 [id number] [phone] Cresencio GAYTAN PATIENT SUPPLEMEN 2 2018 [id number] [facility] Aug 10, [id number] [phone] Cresencio BENNETT PATIENT SUPPLEMEN 2 [id number] [facility] Aug 10 [id number] [phone] Cresencio GAYTAN PATIENT SUPPLEMEN 2 2018 [id number] 4 JESSICA OSHEA OF MEDICARE MEDEX Aug 10, [id number] [phone] Cresencio BENNETT PATIENT MASS SUPPLEMEN 2 [id number] JESSICA NEWBERRY [facility] Apr 10, [id number] [phone] Cresencio HEMPHILL PATIENT MASS PROVIDER OF 2009 [id number] JESSICA ORGANIZAT FALL [facility]ON [facility]PP[facility] Aug 10, [id number] [phone] Cresencio GAYTAN PATIENT SERVICE OF 2016 [id number] 4 JESSICA JOHNSON [facility] Aug 10, [id number] [phone] Cresencio GAYTAN PATIENT BEHAVIORAL HEALTH OF 2016 [id number] JESSICA [facility] SEVERINO JOHNSON PRESCRIPT [facility] Aug 10, [id number] [phone] Cresencio BENNETT PATIENT PHARMACY ION OF 2016 53 9 JESSICA THOMPSON EXPRESS PRESCRIPT [facility] June 21, BRITTANY [id number] [phone] Cresencio BENNETT PATIENT SCRIPTS ION A 2010 91 9 JESSICA ([id number]) MEDICARE MEDICARE PART Aug 10, PART A [id number] Cresencio BENNETT PATIENT (WNR) (M) A 2018 [id number] 4 JESSICA MEDICARE MEDICARE PART Aug 10, PART B [id number] [phone] Cresencio BENNETT PATIENT (WNR) (M) B 2018 [id number] 4 JESSICA MEDICARE MEDICARE PART Aug 10, PART A [id number] [id number] Cresencio BENNETT PATIENT (WNR) (M) A 2018 [id number] 00 JESSICA MEDICARE MEDICARE PART Aug 10, PART B [id number] [phone] Cresencio BENNETT PATIENT (WNR) (M) B 2018 [id number] JESSICA Selected Encounter This section includes the information on record at [place] for the Encounter. Date/Time Encounter Type Encounter Description Reason Provider Source Oct 26, 2021 08:42 Outpatient Encounter DENTAL AM IHE Encounter Template Text not used by SD Plan of Treatment: Future Appointments (+ 6 months) and Future Tests (+/- 45 days) The Plan of Treatment section includes future care activities for the patient from all [place] treatmentfacilities. This section includes future appointments and future orders which are active, pending orscheduled.Future Appointments This section includes appointments that were scheduled to occur 6 months from the date of the Encounter, up to a maximum of 20 appointments. The data comes from all [place] treatment facilities. Appointment Date/Time Appointment Type Appointment Facili ty Name Oct 29, 2021 07:15 [facility] Mar 26, 2022 07:30 AM [facility] Social History: Smoking Status (Most current) and Tobacco Use (All prior to encounter date) This section includes the most current, and the historical, smoking and tobacco-related health factors from the [place] facility where the Encounter took place.Current Smoking Status This section includes the most current smoking, or tobacco-related health factor, from the [place] facility where the Encounter took place. Date/Time Current Smoking Status Comment Facility Jul 19, 2021 10:25 AM VA-TOBACCO USER EVERY DAY SD CNTRL W[facility]N [place] [facility] Tobacco Use History This section includes a history of the smoking, or tobacco- related health factors, that were collected on or before the date of the Encounter. The data comes from the SD facility where the Encounter took place. Date/Time Smoking Status/Tobacco Comment Facility Use Jul 19, 2021 10:25 VA-TOBACCO USE 30 YEARS SD CN TRL WSTRN AM OR MORE [place] Jul 19, 2021 10:25 VA-TOBACCO USE ADVICE [facility] L [facility] AM [facility] Jul 19, 2021 10:25 VA-TOBACCO USE ABLE SEAMAN NO [facility] AM [place] Jul 19, 2021 10:25 VA-TOBACCO USE MED NO [facility] [place] Jul 19, 2021 10:25 VA-TOBACCO USER EVERY DAY [facility] AM [place] May 09, 2020 08:00 VA-TOBACCO FORMER USER VA CNT RL WSTRN AM [place] May 09, 2020 08:00 VA-TOBACCO QUIT < 1 YEAR VA C NTRL WSTRN AM [place] Mar 23, 2019 09:01 VA-TOBACCO FORMER USER VA CNT RL WSTRN AM [place] Mar 23, 2019 09:01 VA-TOBACCO QUIT 5 TO < 15 VA CNTRL [facility] AM YRS [facility] Jan 19, 2018 08:24 VA-TOBACCO NEVER USED VA CNTR L [facility]STR[facility] AM [place] Jan 17, 2017 08:30 QUIT TOBACCO USE > 7 VA CNTRL WSTRN AM YEARS AGO [facility] Jan 17, 2017 08:30 QUIT TOBACCO USE 1-7 VA CNTRL WSTRN AM YEARS AGO [facility] Apr 19, 2016 01:06 QUIT TOBACCO USE 1-7 VA CNTRL WSTRN PM YEARS AGO [facility] May 05, 2014 08:45 QUIT TOBACCO USE 1-7 VA CNTRL WSTR[facility] AM YEARS AGO [facility] Apr 08, 2013 08:46 QUIT TOBACCO USE 1-7 VA CNTRL WSTR[facility] AM YEARS AGO . [facility] Jan 10, 2012 08:23 CURRENT SMOKER [facility] CNTRL WSTR N AM [facility] Jan 10, 2012 08:23 V1-PT DECLINES REF TO VA CNTR L [facility] AM TOBACCO CESS PRGM [place] [facility] Jan 10, 2012 08:23 V1-PT DECLINES TOBACCO VA CNT RL WSTRN AM CESSATION MEDS [facility] Jan 10, 2012 08:23 V1-PT THINKING ABOUT QUIT [facility]L [facility] AM TOBACCO USE [facility] Apr 25, 2011 08:23 V1-PT DECLINES REF TO VA CNTR L W[facility] AM TOBACCO CESS PRGM [place] [facility] Apr 25, 2011 08:23 V1-PT DECLINES TOBACCO VA CNT RL WSTRN AM CESSATION MEDS [facility] Apr 25, 2011 08:23 V1-PT THINKING ABOUT QUIT VA CNTRL [facility] AM TOBACCO USE [facility] Aug 16, 2010 09:12 CURRENT SMOKER VA CNTRL WSTR N AM 1 pk per wk [facility] Aug 16, 2010 09:12 V1-PT DECLINES REF TO VA CNTR L [facility] AM TOBACCO CESS PRGM [place] Aug 16, 2010 09:12 V1-PT DECLINES TOBACCO VA CNT RL WSTRN AM CESSATION MEDS [facility] Aug 16, 2010 09:12 V1-PT NOT INTERESTED IN VA CN TRL WSTRN AM QUIT TOBACCO USE [facility] Dec 28, 2009 08:21 V1-PT DECLINES REF TO VA CNTR L W[facility] AM TOBACCO CESS PRGM [place] [facility] Dec 28, 2009 08:21 V1-PT THINKING ABOUT QUIT VA CNTRL [facility] AM TOBACCO USE [facility] Mar 20, 2009 10:53 V1-PT DECLINES REF TO VA CNTR L W[facility] AM TOBACCO CESS PRGM [place] Mar 20, 2009 10:53 V1-PT DECLINES TOBACCO VA CNT RL WSTRN AM CESSATION MEDS [facility] Mar 20, 2009 10:53 V1-PT NOT INTERESTED IN [facility] TRL WSTRN AM QUIT TOBACCO USE [facility] Mar 13, 2009 09:37 CURRENT SMOKER [facility] WSTR N AM just when he is drinking. He can 't stand it otherwise. [facility] Advance Directives: All historical and current Section Date Range: From patient's date of to the date document was created. This section includes ALL of a patient's completed or amended [place] Advance and Rescinded Directives. The entries below indicate that a directive exists for the patient, but an actual copy is not included with this document. The data comes from all [place] facilities. Date Advance Directives Provider Source Jun 08, 2014 ADVANCE DIRECTIVE [facility]N [facility]O [facility] Encounter Notes: All associated encounter notes This section contains the clinical notes associated to the Encounter. Date/Time Encounter Note(s) Provider Source Oct 26, 2021 08:42 AM TELEHEALTH NOTE: SHAVON STRONG [place] CNTRL WSTRN LOCAL TITLE: TELEPHONE NOTE/DENTAL [facility] STANDARD TITLE: TELEHEALTH NOTE DATE OF NOTE: OCT 26, 2021@08:42 ENTRY DATE: OCT 26, 2021@08:42:23 AUTHOR: SHAVON STRONG EXP COSIGNER: URGENCY: STATUS: COMPLETED Called and spoke with pt to confirm dental appointment on 10/29/2021 at 7:15am. /samir/ SHAVON STRONG [employer] Signed: 10/26/2021 08:43
--- OUTSIDE RECORDS SUMMARY | 2021-12-15 13:56 | XMS_ITS ---
:1955 Author Organization [facility] Address [address] [place] [address] Support Name Relationship Address Phone BELA GAYTAN Unavailable [address] [place] [address] BELA GAYTAN Unavailable [address] [place] [address] Insurance Providers: All historical and current Section Date Range: From patient's date of to the date document was created.This section includes the names of all active insurance providers for the patient. Insurance Type of Plan Start of End of Group Member Insurance Policy P atient's Provider Coverage Name Policy Policy Number ID Provider's Greco's Relationship Coverage Coverage Telephone Name to Policy Number [facility] Aug 10 [id number] [phone] Cresencio GAYTAN PATIENT SUPPLEMEN 2 2018 [id number] JESSICA NEWBERRY [facility] MEDICARE MEDEX Aug 10 [id number] [phone] Cresencio GAYTAN PATIENT SUPPLEMEN 2 2018 [id number] 4 [facility] Aug 10, [id number] [phone] Cresencio BENNETT PATIENT SUPPLEMEN 2 2018 [id number] 4 JESSICA NEWBERRY [facility] MEDICARE MEDEX Aug 10, [id number] [phone] Cresencio BENNETT PATIENT MASS SUPPLEMEN 2 2018 [id number] 3 JESSICA NEWBERRY [facility] Apr 10, [id number] [phone] Cresencio HEMPHILL PATIENT MASS PROVIDER OF 2009 [id number] 3 JESSICA ORGANIZAT FALL ION (PPO) [facility] Aug 10, [id number] [phone] Cresencio GAYTAN PATIENT SERVICE OF 2016 [id number] 4 JESSICA JOHNSON [facility] Aug 10, [id number] [phone] Cresencio GAYTAN PATIENT BEHAVIORAL HEALTH OF 2016 [id number] JESSICA [facility] SEVERINO JOHNSON PRESCRIPT [facility] Aug 10, [id number] [phone] Cresencio BENNETT PATIENT PHARMACY ION OF 2016 53 9 JESSICA THOMPSON EXPRESS PRESCRIPT [facility] June 21, JOSE CAnatoliy [id number] [phone] Cresencio BENNETT PATIENT SCRIPTS ION A 2010 91 9 JESSICA ([id number]) MEDICARE MEDICARE PART Aug 10, PART A [id number] [phone] Cresencio BENNETT PATIENT (WNR) (M) A 2018 [id number] 4 JESSICA MEDICARE MEDICARE PART Aug 10, PART B [id number] [phone] Cresencio BENNETT PATIENT (WNR) (M) B 2018 [id number] 4 JESSICA MEDICARE MEDICARE PART Aug 10, PART A [id number] [phone] Cresencio BENNETT PATIENT (WNR) (M) A 2018 [id number] 00 JESSICA MEDICARE MEDICARE PART Aug 10, PART B [id number] [phone] Cresencio BENNETT PATIENT (WNR) (M) B 2018 [id number] 00 JESSICA Selected Encounter This section includes the information on record at [place] for the Encounter. Date/Time Encounter Type Encounter Description Reason Provider Source Jan 25, 2021 08:27 Outpatient Encounter DENTAL AM IHE Encounter Template Text not used by [place] Plan of Treatment: Future Appointments (+ 6 months) and Future Tests (+/- 45 days) The Plan of Treatment section includes future care activities for the patient from all [place] treatmentfacilities. This section includes future appointments and future orders which are active, pending orscheduled.Future Appointments This section includes appointments that were scheduled to occur 6 months from the date of the Encounter, up to a maximum of 20 appointments. The data comes from all [place] treatment facilities. Appointment Date/Time Appointment Type Appointment Facili ty Name Mar 15, 2021 07:30 AM AMBULATORY - [facility]ICINE [facility] May 03, 2021 07:30 AM [facility] May 22, 2021 08:30 AM AMBULATORY - NONE [facility] [place] [facility] May 22, 2021 08:45 AM AMBULATORY - NONE [facility] Social History: Smoking Status (Most current) and Tobacco Use (All prior to encounter date) This section includes the most current, and the historical, smoking and tobacco-related health factors from the [place] facility where the Encounter took place.Current Smoking Status This section includes the most current smoking, or tobacco-related health factor, from the [place] facility where the Encounter took place. Date/Time Current Smoking Status Comment Facility May 09, 2020 08:00 AM VA-TOBACCO FORMER USER [place] CNTRL WSTRN [facility] Tobacco Use History This section includes a history of the smoking, or tobacco- related health factors, that were collected on or before the date of the Encounter. The data comes from the [place] facility where the Encounter took place. Date/Time Smoking Status/Tobacco Comment Facility Use May 09, 2020 08:00 VA-TOBACCO QUIT < 1 YEAR VA C NTRL [place]N [place] [facility] Mar 23, 2019 09:01 VA-TOBACCO FORMER USER VA CNT RL WSTRN AM [place] [facility] Mar 23, 2019 09:01 VA-TOBACCO QUIT 5 TO < 15 VA [facility] Jan 19, 2018 08:24 VA-TOBACCO NEVER USED VA CNTR L W[facility] AM [place] [facility] Jan 17, 2017 08:30 QUIT TOBACCO USE > 7 VA CNTRL WSTRN AM YEARS AGO [place] [facility] Jan 17, 2017 08:30 QUIT TOBACCO USE 1-7 VA CNTRL WSTRN AM YEARS AGO [place] [facility] Apr 19, 2016 01:06 QUIT TOBACCO USE 1-7 VA CNTRL WSTRN PM YEARS AGO [place] [facility] May 05, 2014 08:45 QUIT TOBACCO USE 1-7 VA CNTRL WSTRN AM YEARS AGO [place] [facility] Apr 08, 2013 08:46 QUIT TOBACCO USE 1-7 VA CNTRL WSTRN AM YEARS AGO . [place] [facility] Jan 10, 2012 08:23 CURRENT SMOKER VA CNTRL WSTR N AM [place] [facility] Jan 10, 2012 08:23 V1-PT DECLINES REF TO VA CNTR L WSTRN AM TOBACCO CESS PRGM [place] Jan 10, 2012 08:23 V1-PT DECLINES TOBACCO VA CNT RL WSTRN AM CESSATION MEDS [place] [facility] Jan 10, 2012 08:23 V1-PT THINKING ABOUT QUIT VA CNTRL [facility] AM TOBACCO USE [place] [facility] Apr 25, 2011 08:23 V1-PT DECLINES REF TO VA CNTR L WSTR[facility] AM TOBACCO CESS PRGM [place] Apr 25, 2011 08:23 V1-PT DECLINES TOBACCO VA CNT RL WSTRN AM CESSATION MEDS [place] [facility] Apr 25, 2011 08:23 V1-PT THINKING ABOUT QUIT VA CNTRL [facility] AM TOBACCO USE [place] [facility] Aug 16, 2010 09:12 CURRENT SMOKER VA CNTRL WSTR N AM 1 pk [facility] Aug 16, 2010 09:12 V1-PT DECLINES REF TO VA CNTR L WSTRN [facility]AC[facility] Aug 16, 2010 09:12 V1-PT DECLINES TOBACCO VA CNT RL W[facility]N [facility] Aug 16, 2010 09:12 V1-PT NOT INTERESTED IN VA CN TRL WSTRN AM QUIT TOBACCO USE [place] [facility] Dec 28, 2009 08:21 V1-PT DECLINES REF TO VA CNTR L WSTR[facility] Dec 28, 2009 08:21 V1-PT THINKING ABOUT QUIT VA CNTRL [facility] AM [place]ACCO USE [place] [facility] Mar 20, 2009 10:53 V1-PT DECLINES REF TO VA CNTR L WSTRN AM [facility]BACCO [facility]ESS [facility] Mar 20, 2009 10:53 V1-PT DECLINES TOBACCO VA CNT RL WSTRN AM CESSATION MEDS [place] [facility] Mar 20, 2009 10:53 V1-PT NOT INTERESTED IN VA CN TRL WSTRN AM QUIT TOBACCO USE [place] [facility] Mar 13, 2009 09:37 CURRENT SMOKER VA CNTRL WSTR N AM just when he is drinking. He can 't stand it otherwise. [facility] Advance Directives: All historical and current Section Date Range: From patient's date of to the date document was created. This section includes ALL of a patient's completed or amended [place] Advance and Rescinded Directives. The entries below indicate that a directive exists for the patient, but an actual copy is not included with this document. The data comes from all [place] facilities. Date Advance Directives Provider Source Jun 08, 2014 ADVANCE DIRECTIVE TARYN VILLATORO [facility] WSTR N [facility] Encounter Notes: All associated encounter notes This section contains the clinical notes associated to the Encounter. Date/Time Encounter Note(s) Provider Source Jan 25, 2021 08:27 AM PRIMARY CARE LETTERS: CYN TOLLIVER [facility] W[facility]N LOCAL TITLE: PATIENT LETTER - [facility] STANDARD TITLE: PRIMARY CARE LETTERS DATE OF NOTE: JAN 25, 2021@08:27 ENTRY DATE: JAN 25, 2021@08:27:09 AUTHOR: CYN TOLLIVER EXP COSIGNER: URGENCY: STATUS: COMPLETED [facility]PARTMENT OF [facility] Specialty Outpatient Clinic Telephone number: [phone] SOFIA GAYTAN [address] [place] [address], [id number] JAN 25, 2021 Dear [place], We have been attempting to contact you by phone to schedule a dental appointment that was requested for you. If you are interested in scheduling this appoint ment please call us back at [phone]. [phone] or Toll Free [phone] and follow the prompts for our Telephone Call Center. Our clini c hours are Friday through Friday 8:00 am to 4:30 pm. Sincerely, Your Dental Care Team [address] [address] Specialty Outpatient Clinic [address] [place] [id number] Jan 25, 2021 08:27 AM TELEPHONE ENCOUNTER NOTE: CYN TOLLIVER [facility] WSTRN LOCAL TITLE: TELEPHONE NOTE/SPECIALTY CLINIC [facility] STANDARD TITLE: TELEPHONE ENCOUNTER NOTE DATE OF NOTE: JAN 25, 2021@08:27 ENTRY DATE: JAN 25, 2021@08:27:56 AUTHOR: CYN TOLLIVER EXP COSIGNER: URGENCY: STATUS: COMPLETED RTC orders: Unable to contact patient: Attempts to contact: 1st attempt: Left voicemail 2nd attempt: Letter mailed 3rd attempt: 4th attempt: Called and left message on voicemail. When patie nt calls back please schedule follow up appointment with dental. PID 1 /samir/ CYN TOLLIVER Signed: 01/25/2021 08:28
--- OUTSIDE RECORDS SUMMARY | 2021-12-15 13:56 | XMS_ITS ---
:1955 Author Organization [facility] Address [address] [place] [id number] Support Name Relationship Address Phone BELA GAYTAN Unavailable [address] [place] [address] BELA GAYTAN Unavailable [address] [place] [address] Insurance Providers: All historical and current Section Date Range: From patient's date of to the date document was created.This section includes the names of all active insurance providers for the patient. Insurance Type of Plan Start of End of Group Member Insurance Policy P atient's Provider Coverage Name Policy Policy Number ID Provider's Greco's Relationship Coverage Coverage Telephone Name to Policy Number Greco [facility] MEDEX Aug 10 [id number] [phone] Cresencio GAYTAN PATIENT SUPPLEMEN 2 2018 [id number] [facility] MEDEX Aug 10 [id number] [phone] Cresencio GAYTAN PATIENT SUPPLEMEN 2 2018 [id number] [facility] MEDEX Aug 10, [id number] [phone] Cresencio BENNETT PATIENT SUPPLEMEN 2 2018 [id number] JESSICA [facility] MED[facility] MEDEX Aug 10, [id number] [phone] Cresencio BENNETT PATIENT MASS SUPPLEMEN 2 2018 [id number] [facility] Apr 10, [id number] [phone] Cresencio HEMPHILL PATIENT MASS PROVIDER OF 2009 [id number] 3 JESSICA ORGANIZAT FALL ION (PPO) RIVER [facility] Aug 10, [id number] [phone] Cresencio GAYTAN PATIENT SERVICE OF 2016 [id number] 4 JESSICA [facility] Aug 10, [id number] [phone] Cresencio GAYTAN PATIENT BEHAVIORAL HEALTH OF 2016 [id number] JESSICA [place] SEVER[place] JOHNSON PRESCRIPT [facility] Aug 10, [id number] [phone] Cresencio BENNETT PATIENT PHARMACY ION OF 2016 [id number] JESSICA THOMPSON EXPRESS PRESCRIPT [facility] June 21, JOSE CAnatoliy [id number] [phone] Cresencio BENNETT PATIENT SCRIPTS ION A 2010 91 9 JESSICA ([id number]) MEDICARE MEDICARE PART Aug 10, PART A [id number] Cresencio BENNETT PATIENT (WNR) (M) A 2018 [id number] 4 JESSICA MEDICARE MEDICARE PART Aug 10, PART B [id number] Cresencio BENNETT PATIENT (WNR) (M) B 2018 [id number] 4 JESSICA MEDICARE MEDICARE PART Aug 10, PART A [id number] [phone] Cresencio BENNETT PATIENT (WNR) (M) A 2018 [id number] JESSICA MEDICARE MEDICARE PART Aug 10, PART B [id number] Cresencio BENNETT PATIENT (WNR) (M) B 2018 [id number] JESSICA Selected Encounter This section includes the information on record at [place] for the Encounter. Date/Time Encounter Type Encounter Description Reason Provider Source Dec 18, 2020 03:03 Outpatient Encounter PRIMARY CARE/MEDICINE PM IHE Encounter Template Text not used by [...] 15, 2021 07:30 AM AM[facility] - [facility] May 03, 2021 07:30 AM AM[facility]UL[facility]ORY [facility] NONE [facility] May 22, 2021 08:30 AM [facility] May 22, 2021 08:45 AM [facility] Active, Pending, and Scheduled Orders This section includes a listing of several types of active, pending, and scheduled orders, including clinic medications orders, diagnostic test orders, procedure orders and consult orders; where the start date of the order is 45 days before the date of the Encounter or 45 days after the date of the Encounter. The data comes from all [place] treatment facilities. Test Date/Time Test Type Test Details Facility Name Nov 09, 2020 12:00 AM Laboratory - Chemistry CBC BLOOD [facility] Order (LAV-BLOOD) [facility] Nov 09, 2020 12:00 AM Laboratory - Chemistry LIPID PANEL FASTING [facility] Order BLOOD (SST-SERUM) [facility] Nov 09, 2020 12:00 AM Laboratory - Chemistry BASIC METABOLIC [facility] Order PANEL (fasting) [facility] BLOOD (SST-SERUM) Nov 09, 2020 12:00 AM Laboratory - Chemistry LIVER FUNCTION BLOO D [facility] Order (SST-SERUM) [facility] Social History: Smoking Status (Most current) and [...] 09, 2020 08:00 AM VA-TOBACCO FOR[facility] Tobacco Use History This section includes a history of the smoking, or tobacco- related health factors, that were collected on or before the date of the Encounter. The data comes from the [place] facility where the Encounter took place. Date/Time Smoking Status/Tobacco Comment Facility Use May 09, 2020 08:00 VA-TOBACCO QUIT < 1 YEAR [facility] NTRL WSTRN [place] [facility] Mar 23, 2019 09:01 VA-TOBACCO FORMER USER [place] CNT RL W[place] [facility] Mar 23, 2019 09:01 VA-TOBACCO QUIT 5 TO < 15 VA CNTRL W[place] AM YRS [place] [facility] Jan 19, 2018 08:24 VA-TOBACCO NEVER USED [facility] CNTR L [place] [facility] Jan 17, 2017 08:30 QUIT TOBACCO USE > 7 VA CNTRL W[place]N AM YEARS AGO [place] [facility] Jan 17, 2017 08:30 QUIT TOBACCO USE 1-7 VA CNTRL W[place]N AM YEARS AGO [place] [facility] Apr 19, 2016 01:06 QUIT TOBACCO USE 1-7 VA CNTRL W[place]N PM YEARS AGO [place] [facility] May 05, 2014 08:45 QUIT TOBACCO USE 1-7 VA CNTRL WSTRN AM YEARS AGO [place] [facility] Apr 08, 2013 08:46 QUIT TOBACCO USE 1-7 VA CNTRL W[place]N AM YEARS AGO . [place] [facility] Jan 10, 2012 08:23 CURRENT SMOKER [facility] CNTRL WSTR N [place] [facility] Jan 10, 2012 08:23 V1-PT DECLINES REF TO VA CNTR L WSTRN AM TOBACCO [facility]ESS [facility] Jan 10, 2012 08:23 V1-PT DECLINES TOBACCO VA CNT RL WSTRN AM CESSATION MEDS [facility] Jan 10, 2012 08:23 V1-PT THINKING ABOUT QUIT VA CNTRL WSTRN AM [facility]ACCO [facility] Apr 25, 2011 08:23 V1-PT DECLINES REF TO VA CNTR L WSTRN AM TOBACCO CESS PRGM [facility] Apr 25, 2011 08:23 V1-PT DECLINES TOBACCO VA CNT RL WSTRN AM CESSATION [facility] Apr 25, 2011 08:23 V1-PT THINKING ABOUT QUIT VA CNTRL WSTRN AM TOBACCO [facility] Aug 16, 2010 09:12 CURRENT SMOKER VA CNTRL WSTR N AM 1 pk per wk [facility] Aug 16, 2010 09:12 V1-PT DECLINES REF TO VA CNTR L WSTRN AM TOBACCO CESS [facility] Aug 16, 2010 09:12 V1-PT DECLINES TOBACCO VA CNT RL WSTRN AM CESSATION [facility] Aug 16, 2010 09:12 V1-PT NOT INTERESTED IN VA CN TRL WSTRN AM QUIT TOBACCO USE [facility] Dec 28, 2009 08:21 V1-PT DECLINES REF TO VA CNTR L WSTRN AM TOBACCO CESS PRGM [facility] Dec 28, 2009 08:21 V1-PT THINKING ABOUT QUIT VA CNTRL WSTRN AM TOBACCO USE [facility] Mar 20, 2009 10:53 V1-PT DECLINES REF TO VA CNTR L WSTRN AM TOBACCO CESS PRGM [facility] Mar 20, 2009 10:53 V1-PT DECLINES TOBACCO VA CNT RL WSTRN AM CESSATION MEDS [facility] Mar 20, 2009 10:53 V1-PT NOT INTERESTED IN VA CN TRL WSTRN AM QUIT TOBACCO USE [facility] Mar 13, 2009 09:37 CURRENT SMOKER VA CNTRL WSTR N AM just when he is drinking. He can 't stand it otherwise. [facility] Advance Directives: All historical and current Section [...] DIRECTIVE TARYN VILLATORO [facility] CNTRL WSTR N [facility] Encounter Notes: All associated encounter notes This section contains the clinical notes associated to the Encounter. Date/Time Encounter Note(s) Provider Source Dec 18, 2020 03:03 PM IMMUNIZATION NOTE: ALFREDO PIMENTEL SD CNTR L WSTRN LOCAL TITLE: COVID-19 VACCINE SCHEDULING NOTE [facility] STANDARD TITLE: IMMUNIZATION NOTE DATE OF NOTE: DEC 18, 2020@15:03 ENTRY DATE: DEC 18, 2020@15:03:26 AUTHOR: ALFREDO PIMENTEL EXP COSIGNER: URGENCY: STATUS: COMPLETED Is interested in rec eiving the COVID-19 vaccine as it becomes available? [place] has declined the Covid-19 vaccine boost er at this time. /samir/ ALFREDO PIMENTEL Advanced Strategic Planning Director Signed: 12/18/2020 15:04
--- OUTSIDE RECORDS SUMMARY | 2021-12-15 13:56 | XMS_ITS ---
:1955 Author Organization [facility] Address [address] [place] [address] Support Name Relationship Address Phone BELA GAYTAN Unavailable [address] [place] [address] BELA GAYTAN Unavailable [address] [place] [address] Insurance Providers: All historical and current Section [...] Telephone Name to Policy Number [place]co [place] MED[place] Aug 10 [id number] [phone] Cresencio GAYTAN PATIENT SUPPLEMEN 2 2018 [id number] [facility] MED[facility] MED[facility] Aug 10 [id number] [phone] Cresencio GAYTAN PATIENT SUPPLEMEN 2 2018 [id number] 4 [facility] [facility] MEDICARE MEDEX Aug 10, [id number] [phone] Cresencio BENNETT PATIENT SUPPLEMEN 2 2018 [id number] 4 JESSICA OSHEA OF MEDICARE MEDEX Aug 10, [id number] [phone] Cresencio BENNETT PATIENT MASS SUPPLEMEN 2 2018 [id number] 3 JESSICA NEW[place] BCBS OF [facility] Apr 10, [id number] [phone] Cresencio HEMPHILL PATIENT MASS PROVIDER OF 2009 [id number] 3 JESSICA ORGANIZAT FALL ION (PPO) RIVER [facility] Aug 10, [id number] [phone] Cresencio GAYTAN PATIENT SERVICE OF 2016 [id number] 4 JESSICA [facility]NSON [facility] Aug 10, [id number] [phone] Cresencio GAYTAN PATIENT BEHAVIORAL HEALTH OF 2016 [id number] JESSICA [facility] SEVERINO JOHNSON PRESCRIPT [facility] Aug 10, [id number] [phone] Cresencio BENNETT PATIENT PHARMACY ION OF 2016 [id number] 9 JESSICA THOMPSON EXPRESS PRESCRIPT [facility] June 21, JOSE CAnatoliy [id number] [phone] Cresencio BENNETT PATIENT SCRIPTS ION A 2010 91 9 JESSICA ([id number]) MEDICARE MEDICARE PART Aug 10, PART B [id number] Cresencio BENNETT PATIENT (WNR) (M) B 2018 [id number] 4 JESSICA MEDICARE MEDICARE PART Aug 10, PART A [id number] [phone] Cresencio BENNETT PATIENT (WNR) (M) A 2018 [id number] 4 JESSICA MEDICARE MEDICARE PART Aug 10, PART A [id number] [id number] Cresencio BENNETT PATIENT (WNR) (M) A 2018 [id number] 00 JESSICA MEDICARE MEDICARE PART Aug 10, PART B [id number] [phone] Cresencio BENNETT PATIENT (WNR) (M) B 2018 [id number] JESSICA Selected Encounter This section includes the information on record at [place] for the Encounter. Date/Time Encounter Type Encounter Description Reason Provider Source Feb 20, 2021 01:59 Outpatient Encounter ADMIN PAT ACTIVTIES PM (MASNONCT) IHE Encounter Template Text not used by MS Plan of Treatment: Future Appointments (+ 6 months) and Future Tests (+/- 45 days) The Plan of Treatment section includes future care activities for the patient from all [place] treatmentfacilities. This section includes future appointments and future orders which are active, pending orscheduled.Future Appointments This section includes appointments that were scheduled to occur 6 months from the date of the Encounter, up to a maximum of 20 appointments. The data comes from all [place] treatment facilities. Appointment Date/Time Appointment Type Appointment Facili ty Name Mar 15, 2021 07:30 AM AM[facility]UL[facility] [place] [facility] May 03, 2021 07:30 AM AMBULATORY - NONE [facility] [place] [facility] May 22, 2021 08:30 AM AMBULATORY - NONE [facility] CN[facility]L [place] [facility] May 22, 2021 08:45 AM AMBULATORY - NONE [place] CNTRL [place] [facility] Lab Results: +/- 30 days of the encounter This section includes the Chemistry and Hematology Lab Results on record with MS for the patient. Radiology Reports and Pathology Reports are provided separately, in subsequent sections.Lab Results This section contains the Chemistry/Hematology Results that were resulted 30 days before or 30 daysafter the date of the Encounter. Date/Time Source Result Type Result - Unit Interpretation Reference Range Comment Mar 21, 2021 MS CNTRL WSTRN LIPID PANEL Specimen Type: SERUM 07:32 AM [place] [facility] No comment enter ed. Ordering Provid er: BLAISE MARTINEZ Report Released Date/Time: Feb 21, 2021 02:44 PM Reporting [facility] [place] [facility] [address] [address] Performing Lab: [place] CNTRL [place] [facility] [address] [address] CHOLESTEROL 140 <7-199 TRIGLYCERIDE 115 0-150 LDL calculated 66 0-129 CHOL/HDL 2.7 HDL CHOLESTEROL 51 40-60 Mar 21, 2021 07:32 MS CNTRL WSTRN LIVER FUNCTION Specimen Typ e: SERUM AM [place] [facility] No comment enter ed. Ordering Provid er: BLAISE MARTINEZ Report Released Date/Time: Feb 21, 2021 02:44 PM Reporting Lab: [facility] [place] [facility] [address] [address] Performing Lab: [place] CNTRL W[place] [facility] [address] [address] PROTEIN,TOTAL 7.4 6.0-8.3 ALBUMIN 3.9 3.5-5.0 ALKALINE PHOSPHATASE 69 40-150 AST 23 5-34 ALT 26 <6-55 BILIRUBIN, TOTAL 0.4 0.2-1.2 Mar 21, 2021 07:32 AM MS CNTRL WSTRN [place] CBC Specimen Type: BLOOD HCS No comment enter ed. Ordering Provid er: BLAISE MARTINEZ Report Released Date/Time: Feb 21, 2021 02:44 PM Reporting Lab: [facility] [address] [address] Performing Lab: [facility] [address] [address] WBC 7.03 4.50-11.00 RBC 4.34 4.23-5.66 HGB 13.3 12.8-17 HCT 40.3 39.2-50.4 MCV 92.9 82-99 MCHC 33.0 30.8-35.1 PLT 250 140-360 RDW-CV 12.9 12.0-16.0 MCH 30.6 26.2-32.6 Mar 21, 2021 [facility] BASIC METABOLIC Specimen Type: SERUM 07:32 AM [facility] PANEL (fasting) No comment enter ed. Ordering Provid er: BLAISE MARTINEZ Report Released Date/Time: Feb 21, 2021 02:44 PM Reporting Lab: [facility] [address] [address] Performing Lab: [facility] [address] [address] UREA NITROGEN 15 7-25 GLUCOSE 100 65-100 SODIUM 138 135-145 POTASSIUM 4.6 3.5-5.0 CHLORIDE 100 100-110 CO2 29 20-30 CREATININE, Serum 0.82 0.50-1.40 eGFR (IDMS) 94 >60 Social History: Smoking Status (Most current) and Tobacco Use (All prior to encounter date) This section includes the most current, and the historical, smoking and tobacco-related health factors from the MS facility where the Encounter took place.Current Smoking Status This section includes the most current smoking, or tobacco-related health factor, from the MS facility where the Encounter took place. Date/Time Current Smoking Status Comment Facility May 09, 2020 08:00 AM VA-TOBACCO FORMER USER [facility] Tobacco Use History This section includes a history of the smoking, or tobacco- related health factors, that were collected on or before the date of the Encounter. The data comes from the MS facility where the Encounter took place. Date/Time Smoking Status/Tobacco Comment Facility Use May 09, 2020 08:00 VA-TOBACCO QUIT < 1 YEAR VA C NTRL WSTRN AM [place] [facility] Mar 23, 2019 09:01 VA-TOBACCO FORMER USER VA CNT RL WSTRN AM [place] [facility] Mar 23, 2019 09:01 VA-TOBACCO QUIT 5 TO < 15 [facility] Jan 19, 2018 08:24 VA-TOBACCO NEVER USED VA CNTR L WSTRN AM [place] [facility] Jan 17, 2017 08:30 QUIT TOBACCO USE > 7 VA CNTRL WSTRN AM YEARS AGO [place] [facility] Jan 17, 2017 08:30 QUIT TOBACCO USE 1-7 VA CNTRL WSTRN AM YEARS AGO [place] [facility] Apr 19, 2016 01:06 QUIT TOBACCO USE 1-7 VA CNTRL WSTRN PM YEARS AGO [place] [facility] May 05, 2014 08:45 QUIT TOBACCO USE 1-7 VA CNTRL WSTRN AM YEARS AGO [place] [facility] Apr 08, 2013 08:46 QUIT TOBACCO USE 1-7 VA CNTRL WSTRN AM YEARS AGO . [place] [facility] Jan 10, 2012 08:23 CURRENT SMOKER VA CNTRL WSTR N AM [place] [facility] Jan 10, 2012 08:23 V1-PT DECLINES REF TO VA CNTR L WSTRN AM TOBACCO CESS PRGM [place] Jan 10, 2012 08:23 V1-PT DECLINES TOBACCO VA CNT RL WSTRN [facility] Jan 10, 2012 08:23 V1-PT THINKING ABOUT QUIT VA CNTRL WSTRN AM TOBACCO USE [place] [facility] Apr 25, 2011 08:23 V1-PT DECLINES REF TO VA CNTR L WSTRN AM TOBACCO CESS PRGM [place] S Apr 25, 2011 08:23 V1-PT DECLINES TOBACCO VA CNT RL WSTRN AM [facility] Apr 25, 2011 08:23 V1-PT THINKING ABOUT QUIT VA CNTRL WSTRN AM TOBACCO USE [place] [facility] Aug 16, 2010 09:12 CURRENT SMOKER VA CNTRL WSTR N AM 1 pk per wk [facility] Aug 16, 2010 09:12 V1-PT DECLINES REF TO VA CNTR L WSTRN AM TOBACCO CESS PRGM [place] S Aug 16, 2010 09:12 V1-PT DECLINES TOBACCO VA CNT RL WSTRN AM CESSATION MEDS [place] [facility] Aug 16, 2010 09:12 V1-PT NOT INTERESTED IN VA CN TRL WSTRN AM QUIT TOBACCO USE [place] [facility] Dec 28, 2009 08:21 V1-PT DECLINES REF TO VA CNTR L WSTRN AM TOBACCO CESS PRGM [place] S Dec 28, 2009 08:21 V1-PT THINKING ABOUT QUIT VA CNTRL WSTRN AM TOBACCO USE [place] [facility] Mar 20, 2009 10:53 V1-PT DECLINES REF TO VA CNTR L WSTRN AM TOBACCO CESS [facility] Mar 20, 2009 10:53 V1-PT DECLINES TOBACCO VA CNT RL WSTRN AM [facility] Mar 20, 2009 10:53 V1-PT NOT INTERESTED IN VA CN TRL WSTRN AM QUIT TOBACCO [facility] Mar 13, 2009 09:37 CURRENT SMOKER VA CNTRL WSTR N AM just when he is drinking. He can 't stand it otherwise. [facility] Advance Directives: All historical and current Section Date Range: From patient's date of to the date document was created. This section includes ALL of a patient's completed or amended [place] Advance and Rescinded Directives. The entries below indicate that a directive exists for the patient, but an actual copy is not included with this document. The data comes from all [place] facilities. Date Advance Directives Provider Source Jun 08, 2014 ADVANCE DIRECTIVE TARYN VILLATORO [facility] CN[facility]L WSTR N [facility] Encounter Notes: All associated encounter notes This section contains the clinical notes associated to the Encounter. Date/Time Encounter Note(s) Provider Source Feb 20, 2021 01:59 PM MEDICATION MGT NOTE: TONIA PEARL MS CN TRL WSTRN LOCAL TITLE: MEDICATION RENEWAL [facility] STANDARD TITLE: MEDICATION MGT NOTE DATE OF NOTE: FEB 20, 2021@13:59 ENTRY DATE: FEB 20, 2021@13:59:13 AUTHOR: TONIA PEARL EXP COSIGNER: URGENCY: STATUS: COMPLETED Active Outpatient Medications (including Supplie s): Active Outpatient Medications Status 1) DRONEDARONE 400MG TAB TAKE ONE TABLET BY MOUT H TWICE ACTIVE DAILY 2) LISINOPRIL 10MG TAB TAKE ONE TABLET BY MOUTH ONCE ACTIVE DAILY TO CONTROL BLOOD PRESSURE 3) OMEPRAZOLE 20MG CAP,EC TAKE ONE CAPSULE BY MO UT ACTIVE EVERY DAY Active Non-VA Medications Status 1) Non-VA FISH OIL CAP,ORAL BY MOUTH ACTIVE 2) Non-VA MULTIVITAMIN/MINERALS CAP/TAB 1 TABLET BY ACTIVE MOUTH EVERY DAY 3) Non-VA ROSUVASTATIN TAB BY MOUTH ACTIVE 4) Non-VA VITAMIN D3 (CHOLECALCIFEROL) TAB BY MO UTH ACTIVE 7 Total Medications [facility] is requesting refills to be mailed for t he following medications: & [id number] APIXABAN 5MG TAB & [id number] DRONEDARONE 400MG TAB Thank you! /samir/ TONIA PEARL [facility] HOUSE SH[facility]ER Signed: 02/20/2021 13:59 Receipt Acknowledged By: * AWAITING SIGNATURE * FRANK MORIN * AWAITING SIGNATURE * BLAISE MARTINEZ
--- OUTSIDE RECORDS SUMMARY | 2021-12-15 13:56 | XMS_ITS | Encounter Summary ---
:1955 Author Organization [facility] [address] Address [address] [place] [id number] Support Name Relationship Address Phone BELA GAYTAN Unavailable [address] [facility] [address] BELA GAYTAN Unavailable [address] [facility] [address] Insurance Providers: All historical and current Section Date Range: From patient's date of to the date document was created.This section includes the names of all active insurance providers for the patient. Insurance Type of Plan Start of End of Group Member Insurance Policy P atient's Provider Coverage Name Policy Policy Number ID Provider's Greco's Relationship Coverage Coverage Telephone Name to Policy Number [facility] Aug 10 [id number] [phone] Cresencio GAYTAN PATIENT SUPPLEMEN 2 2018 [id number] [facility]ICA [facility] Aug 10, [id number] [phone] Cersencio BENNETT PATIENT SUPPLEMEN 2 [id number] [facility] Aug 10 [id number] [phone] Cresencio GAYTAN PATIENT SUPPLEMEN 2 [id number] JESSICA OSHEA OF MEDICARE MEDEX Aug 10, [id number] [phone] Cresencio BENNETT PATIENT MASS SUPPLEMEN 2 [id number] JESSICA [facility] Apr 10, [id number] [phone] Cresencio HEMPHILL PATIENT MASS PROVIDER OF 2009 [id number] JESSICA [facility]GAN[facility]PPO[facility] Aug 10, [id number] [phone] Cresencio GAYTAN PATIENT SERVICE OF 2016 [id number] JESSICA JOHNSON [facility] Aug 10, [id number] [phone] Cresencio GAYTAN PATIENT BEHAVIORAL HEALTH OF 2016 [id number] JESSICA [facility] SE[facility] Aug 10, [id number] [phone] Cresencio BENNETT PATIENT PHARMACY ION OF 2016 [id number] JESSICA THOMPSON [facility] June 21, JOSE CAnatoliy [id number] [phone] Cresencio BENNETT PATIENT SCRIPTS ION A 2010 91 9 JESSICA ([id number]) MEDICARE MEDICARE PART Aug 10, PART B [id number] Cresencio BENNETT PATIENT (WNR) (M) B 2018 [id number] 4 JESSICA MEDICARE MEDICARE PART Aug 10, PART A [id number] [phone] Cresencio BENNETT PATIENT (WNR) (M) A 2018 [id number] 4 JESSICA MEDICARE MEDICARE PART Aug 10, PART A [id number] [phone] Cresencio BENNETT PATIENT (WNR) (M) A 2018 [id number] JESSICA MEDICARE MEDICARE PART Aug 10, PART B [id number] [phone] Cresencio BENNETT PATIENT (WNR) (M) B 2018 [id number] JESSICA Selected Encounter This section includes the information on record at [facility] for the Encounter. Date/Time Encounter Type Encounter Description Reason Provider Source Mar 15, 2021 08:28 Outpatient Encounter OPTOMETRY AM IHE Encounter Template Text not used by [facility] Plan of Treatment: Future Appointments (+ 6 months) and Future Tests (+/- 45 days) The Plan of Treatment section includes future care activities for the patient from all [place] treatmentfacilities. This section includes future appointments and future orders which are active, pending orscheduled.Future Appointments This section includes appointments that were scheduled to occur 6 months from the date of the Encounter, up to a maximum of 20 appointments. The data comes from all [facility] treatment facilities. Appointment Date/Time Appointment Type Appointment Facili ty Name May 03, 2021 07:30 AM AMBULATORY - NONE [facility] May 22, 2021 08:30 AM AMBULATORY - NONE [facility] May 22, 2021 08:45 AM AMBULATORY - NONE [facility] [place] [facility] Aug 21, 2021 08:00 AM AMBULATORY - NONE [facility] [place] [facility] Aug 30, 2021 11:00 AM AMBULATORY - MEDICINE [facility] [place] [facility] Lab Results: +/- 30 days of the encounter This section includes the Chemistry and Hematology Lab Results on record with [facility] for the patient. Radiology Reports and Pathology Reports are provided separately, in subsequent sections.Lab Results This section contains the Chemistry/Hematology Results that were resulted 30 days before or 30 daysafter the date of the Encounter. Date/Time Source Result Type Result - Unit Interpretation Reference Range Comment Mar 21, 2021 07:32 [facility] LIVER FUNCTION Specimen Typ e: [facility]UM [facility] [facility] No comment enter ed. Ordering Provid er: BLAISE MARTINEZ Report Released Date/Time: Feb 21, 2021 02:44 PM Reporting Lab: [facility] [place] [facility] [address] [facility] [address] Performing Lab: [facility] [place] [facility] [address] [facility] [address] PROTEIN,TOTAL 7.4 6.0-8.3 ALBUMIN 3.9 3.5-5.0 ALKALINE PHOSPHATASE 69 40-150 AST 23 5-34 ALT 26 <6-55 BILIRUBIN, TOTAL 0.4 0.2-1.2 Mar 21, 2021 [facility] LIPID PANEL Specimen Type: SERUM 07:32 AM [facility] [facility] FASTING No comment enter ed. Ordering Provid er: BLAISE MARTINEZ Report Released Date/Time: Feb 21, 2021 02:44 PM Reporting Lab: [facility] [place] [facility] [address] [facility] [address] Performing Lab: [facility] [place] [facility] [address] [facility] [address] CHOLESTEROL 140 <7-199 TRIGLYCERIDE 115 0-150 LDL calculated 66 0-129 CHOL/HDL 2.7 HDL CHOLESTEROL 51 40-60 Mar 21, 2021 07:32 AM [facility] [place] CBC Specimen Type: BLOOD HCS No comment enter ed. Ordering Provid er: BLAISE MARTINEZ Report Released Date/Time: Feb 21, 2021 02:44 PM Reporting Lab: [facility] [place] [facility] [address] [facility] [address] Performing Lab: [facility] [place] [facility] [address] [facility] [address] WBC 7.03 4.50-11.00 RBC 4.34 4.23-5.66 HGB 13.3 12.8-17 HCT 40.3 39.2-50.4 MCV 92.9 82-99 MCHC 33.0 30.8-35.1 PLT 250 140-360 RDW-CV 12.9 12.0-16.0 MCH 30.6 26.2-32.6 Mar 21, 2021 [facility] BASIC METABOLIC Specimen Type: SERUM 07:32 [facility] PANEL (fasting) No comment enter ed. Ordering Provid er: BLAISE MARTINEZ Report Released Date/Time: Feb 21, 2021 02:44 PM Reporting Lab: [facility] [address] [facility] [address] Performing Lab: [facility] [address] [address] UREA NITROGEN 15 7-25 GLUCOSE 100 65-100 [...] 09, 2020 08:00 AM VA-TOBACCO FORMER USER [facility] Tobacco Use History This section includes a history of the smoking, or tobacco- related health factors, that were collected on or before the date of the Encounter. The data comes from the [place] facility where the Encounter took place. Date/Time Smoking Status/Tobacco Comment Facility Use May 09, 2020 08:00 VA-TOBACCO QUIT < 1 YEAR [facility] Mar 23, 2019 09:01 VA-TOBACCO FORMER USER [facility] [place] [facility] Mar 23, 2019 09:01 VA-TOBACCO QUIT 5 TO < 15 [facility] Jan 19, 2018 08:24 VA-TOBACCO NEVER USED [facility] [place] [facility] Jan 17, 2017 08:30 QUIT TOBACCO USE > 7 [facility] Jan 17, 2017 08:30 QUIT TOBACCO USE 1-7 [facility] Apr 19, 2016 01:06 QUIT TOBACCO USE 1-7 [facility] PM YEARS AGO [facility] May 05, 2014 08:45 QUIT TOBACCO USE 1-7 [facility] Apr 08, 2013 08:46 QUIT TOBACCO USE 1-7 [facility] AM YEARS AGO . [place] [facility] Jan 10, 2012 08:23 CURRENT SMOKER [facility] Jan 10, 2012 08:23 V1-PT DECLINES REF TO [facility] AM [facility]BACCO [facility]ESS [facility] Jan 10, 2012 08:23 V1-PT DECLINES TOBACCO [facility] AM [facility]ESSATION [facility] Jan 10, 2012 08:23 V1-PT THINKING ABOUT QUIT [facility] [place]ACCO USE [place] [facility] Apr 25, 2011 08:23 V1-PT DECLINES REF TO [facility] AM TOBACCO CESS PRGM [facility] S Apr 25, 2011 08:23 V1-PT DECLINES TOBACCO [facility] Apr 25, 2011 08:23 V1-PT THINKING ABOUT QUIT [facility] Aug 16, 2010 09:12 CURRENT SMOKER [facility] AM 1 pk per wk [facility] Aug 16, 2010 09:12 V1-PT DECLINES REF TO [facility] AM TOBACCO CESS PRGM [place] Aug 16, 2010 09:12 V1-PT DECLINES TOBACCO [facility] Aug 16, 2010 09:12 V1-PT NOT INTERESTED IN [facility] AM QUIT TOBACCO USE [place] [facility] Dec 28, 2009 08:21 V1-PT DECLINES REF TO [facility]ACCO CESS [facility] Dec 28, 2009 08:21 V1-PT THINKING ABOUT QUIT [facility] TOBACCO USE [place] [facility] Mar 20, 2009 10:53 V1-PT DECLINES REF TO [facility]ACCO CESS [facility] Mar 20, 2009 10:53 V1-PT DECLINES TOBACCO [facility] Mar 20, 2009 10:53 V1-PT NOT INTERESTED IN [facility] AM QUIT [facility]ACCO [facility] Mar 13, 2009 09:37 CURRENT SMOKER [facility] AM just when he is drinking. He can 't stand it otherwise. [facility] Advance Directives: All historical and current [...] DIRECTIVE TARYN VILLATORO [facility] Encounter Notes: All associated encounter notes This section contains the clinical notes associated to the Encounter. Date/Time Encounter Note(s) Provider Source Mar 15, 2021 08:28 AM OPTOMETRY NOTE: YELITZA LIM [facility] LOCAL TITLE: OPTOMETRY NOTE [facility] STANDARD TITLE: OPTOMETRY NOTE DATE OF NOTE: MAR 15, 2021@08:28 ENTRY DATE: MAR 15, 2021@08:28:45 AUTHOR: YELITZA LIM EXP COSIGNER: URGENCY: STATUS: COMPLETED dvo photo gudino SOFIA GAYTAN 8079 RX INFORMATION OD +1.50 -0.50 X45 Add:0.00 Pzm:0.00 Dir: Prz2:0 .00 Dir2: OS +1.00 -0.25 X105 Add:0.00 Pzm:0.00 Dir: Prz2: 0.00 Dir2: FITTING INFORMATION FPD:71 NPD: Lea:R: L: SEG HT:R: L: Tint:None Shade:None [facility] Billable Items FRAME: BIG TWIST BLACK [id number] Right Lens: PLASTIC SINGLE VISION PHOTOCHROMIC G LUIS A 1.498 PLASTIC CR39 Left Lens: PLASTIC SINGLE VISION PHOTOCHROMIC GR EY 1.498 PLASTIC CR39 nvo SOFIA GAYTAN 8079 RX INFORMATION OD +3.75 -0.50 X45 Add:0.00 Pzm:0.00 Dir: Prz2:0 .00 Dir2: OS +3.25 -0.25 X105 Add:0.00 Pzm:0.00 Dir: Prz2: 0.00 Dir2: FITTING INFORMATION FPD:68 NPD:68 Lea:R: L: SEG HT:R: L: Tint:None Shade:None VA Billable Items FRAME: JAZZ BLACK [id number] Right Lens: PLASTIC SINGLE VISION CLEAR 1.498 PL ASTIC CR39 Left Lens: PLASTIC SINGLE VISION CLEAR 1.498 PANTERA STIC CR39 /es/ YELITZA LIM MANAGER BUSINESS MANAGEMENT Signed: 03/15/2021 08:29 Receipt Acknowledged By: * AWAITING SIGNATURE * LENORE FINN * AWAITING SIGNATURE * WARNER WILLIS
--- OUTSIDE RECORDS SUMMARY | 2021-12-15 13:56 | XMS_ITS ---
:1955 Author Organization [facility] Address [address] [place] [id number] Support Name Relationship Address Phone BELA GAYTAN Unavailable [address] [facility] [place] [address] BELA GAYTAN Unavailable [address] [facility] [place] [address] Insurance Providers: All historical and current Section [...] Telephone Name to Policy Number [place] Aug 10 [id number] [phone] Cresencio GAYTAN PATIENT SUPPLEMEN 2 [id number] [facility] Aug 10, [id number] [phone] Cresencio BENNETT PATIENT SUPPLEMEN 2 [id number] [facility] Aug 10 [id number] [phone] Cresencio GAYTAN PATIENT SUPPLEMEN 2 [id number] JESSICA OSHEA OF MEDICARE MEDEX Aug 10, [id number] [phone] Cresencio BENNETT PATIENT MASS SUPPLEMEN 2 [id number] JESSICA [facility] Apr 10, [id number] [phone] Cresencio HEMPHILL PATIENT MASS PROVIDER OF 2009 [id number] JESSICA ORGANCATHERINEAT [facility]ALL [facility] (PP[facility] Aug 10, [id number] [phone] Cresencio GAYTAN PATIENT SERVICE OF 2016 [id number] JESSICA [facility] Aug 10, [id number] [phone] Cresencio GAYTAN PATIENT BEHAVIORAL HEALTH OF 2016 [id number] JESSICA JOHNSON PRESCRIPT [facility] Aug 10, [id number] [phone] Cresencio BENNETT PATIENT PHARMACY ION OF 2016 [id number] JESSICA MCNULTY PRESCRIPT [facility] June 21, [facility] [id number] [phone] Cresencio BENNETT PATIENT SCRIPTS ION A 2010 91 9 JESSICA ([id number]) MEDICARE MEDICARE PART Aug 10, PART A [id number] [phone] Cresencio BENNETT PATIENT (WNR) (M) A 2018 [id number] 4 JESSICA MEDICARE MEDICARE PART Aug 10, PART B [id number] [phone] Cresencio BENNETT PATIENT (WNR) (M) B 2018 [id number] 4 JESSICA MEDICARE MEDICARE PART Aug 10, PART A [id number] [phone] Cresencio BENNETT PATIENT (WNR) (M) A 2019 [id number] JESSICA MEDICARE MEDICARE PART Aug 10, PART B [id number] [phone] Cresencio BENNETT PATIENT (WNR) (M) B 2018 [id number] JESSICA Selected Encounter This section includes the information on record at [place] for the Encounter. Date/Time Encounter Type Encounter Reason Provider Source Description Feb 23, 2021 QIAP [facility] ICD-10-CM Z51.81 SERENITY PHILLIPS 08:38 AM ASSMT&MGMT 5-10 Encounter for NE F therapeutic drug level monitoring with Provider Comments: Therapeutic drug level monitoring IHE Encounter Template Text not used by [place] Assessments - Encounter Diagnoses This section includes the primary and secondary diagnoses documented for the Encounter. Date/Time Primary/Secondary Diagnosis Name Provider Source Diagnosis Feb 23, 2021 PRIMARY Encounter for NAEL PHILLIPS [place] [facility] 10:31 AM therapeutic drug [facility] level monitoring Feb 23, 2021 [facility] pen[facility]entiary (current[facility] NAEL PHILLIPS [facility] 10:31 AM use of [facility] anticoagulants Feb 23, 2021 SECONDARY Unspecified atrial NAEL PHILLIPS [facility] 10:31 AM fibrillation [place] [facility] Plan of Treatment: Future Appointments (+ 6 months) and Future Tests (+/- 45 days) The Plan of Treatment section includes future care activities for the patient from all [place] treatmentfacilities. This section includes future appointments and future orders which are active, pending orscheduled.Future Appointments This section includes appointments that were scheduled to occur 6 months from the date of the Encounter, up to a maximum of 20 appointments. The data comes from all [place] treatment facilities. Appointment Date/Time Appointment Type Appointment Facili ty Name Mar 15, 2021 07:30 AM [facility] [place] [facility] May 03, 2021 07:30 AM AMBULATORY - NONE [facility] May 22, 2021 08:30 AM AMBULATORY - NONE [place] [facility] May 22, 2021 08:45 AM AMBULATORY - N[facility] Aug 21, 2021 08:00 AM AMBULATORY - NONE [facility] Lab Results: +/- 30 days of the encounter This section includes the Chemistry and Hematology Lab Results on record with [place] for the patient. Radiology Reports and Pathology Reports are provided separately, in subsequent sections.Lab Results This section contains the Chemistry/Hematology Results that were resulted 30 days before or 30 daysafter the date of the Encounter. Date/Time Source Result Type Result - Unit Interpretation Reference Range Comment Mar 21, 2021 07:32 [facility] LIVER FUNCTION Specimen Typ e: SERUM AM [facility] No comment enter ed. Ordering Provid er: BLAISE MARTINEZ Report Released Date/Time: Feb 21, 2021 02:44 PM Reporting Lab: [facility] [address] [facility] [address] Performing Lab: [facility] [address] [facility] [address] PROTEIN,TOTAL 7.4 6.0-8.3 ALBUMIN 3.9 3.5-5.0 ALKALINE PHOSPHATASE 69 40-150 AST 23 5-34 ALT 26 <6-55 BILIRUBIN, TOTAL 0.4 0.2-1.2 Mar 21, 2021 07:32 AM [place] [facility] [place] CBC Specimen Type: BLOOD HCS No comment enter ed. Ordering Provid er: BLAISE MARTINEZ Report Released Date/Time: Feb 21, 2021 02:44 PM Reporting Lab: [facility] [place] [facility] [address] [facility] [address] Performing Lab: [facility] [place] [facility] [address] [facility] [address] WBC 7.03 4.50-11.00 RBC 4.34 4.23-5.66 HGB 13.3 12.8-17 HCT 40.3 39.2-50.4 MCV 92.9 82-99 MCHC 33.0 30.8-35.1 PLT 250 140-360 RDW-CV 12.9 12.0-16.0 MCH 30.6 26.2-32.6 Mar 21, 2021 [facility] LIPID PANEL Specimen Type: SERUM 07:32 AM [place] [facility] FASTING No comment enter ed. Ordering Provid er: BLAISE MARTINEZ Report Released Date/Time: Feb 21, 2021 02:44 PM Reporting Lab: [facility] [place] [facility] [address] [facility] [address] Performing Lab: [facility] [place] [facility] [address] [facility] [address] CHOLESTEROL 140 <7-199 TRIGLYCERIDE 115 0-150 LDL calculated 66 0-129 CHOL/HDL 2.7 HDL CHOLESTEROL 51 40-60 Mar 21, 2021 [place] [facility] BASIC METABOLIC Specimen Type: SERUM 07:32 AM [place] [facility] PANEL (fasting) No comment enter ed. Ordering Provid er: BLAISE MARTINEZ Report Released Date/Time: Feb 21, 2021 02:44 PM Reporting Lab: [place] [facility] [place] [facility] [address] [facility] [address] Performing Lab: [place] [facility] [place] [facility] [address] [facility] [address] UREA NITROGEN 15 7-25 GLUCOSE 100 65-100 SODIUM 138 135-145 POTASSIUM 4.6 3.5-5.0 CHLORIDE 100 100-110 CO2 29 20-30 CREATININE, Serum 0.82 0.50-1.40 eGFR (IDMS) 94 >60 Social History: Smoking Status (Most current) and Tobacco Use (All prior to encounter date) This section includes the most current, and the historical, smoking and tobacco-related health factors from the [place] facility where the Encounter took place.Current Smoking Status This section includes the most current smoking, or tobacco-related health factor, from the [place] facility where the Encounter took place. Date/Time Current Smoking Status Comment Facility May 09, 2020 08:00 AM VA-TOBACCO FOR[facility]ER [facility] Tobacco Use History This section includes a history of the smoking, or tobacco- related health factors, that were collected on or before the date of the Encounter. The data comes from the [place] facility where the Encounter took place. Date/Time Smoking Status/Tobacco Comment Facility Use May 09, 2020 08:00 VA-TOBACCO QUIT < 1 YEAR [facility] [place] [facility] Mar 23, 2019 09:01 VA-TOBACCO FORMER USER [facility] [place] [facility] Mar 23, 2019 09:01 VA-TOBACCO QUIT 5 TO < 15 [facility] AM YRS [facility] Jan 19, 2018 08:24 VA-TOBACCO NEVER USED [facility] [place] [facility] Jan 17, 2017 08:30 QUIT TOBACCO USE > 7 [facility] AM YEARS AGO [place] [facility] Jan 17, 2017 08:30 QUIT TOBACCO USE 1-7 [facility] AM YEARS A[place] [facility] Apr 19, 2016 01:06 QUIT TOBACCO USE 1-7 [facility] PM YEARS AGO [place] [facility] May 05, 2014 08:45 QUIT TOBACCO USE 1-7 [facility] AM YEARS AGO [place] [facility] Apr 08, 2013 08:46 QUIT TOBACCO USE 1-7 [facility] AM YEARS AGO . [place] [facility] Jan 10, 2012 08:23 CURRENT SMOKER [facility] [place] [facility] Jan 10, 2012 08:23 V1-PT DECLINES REF TO [facility]AC[facility] Jan 10, 2012 08:23 V1-PT DECLINES TOBACCO [facility] AM CESSATION MEDS [place] [facility] Jan 10, 2012 08:23 V1-PT THINKING ABOUT QUIT [facility] TOBACCO USE [place] [facility] Apr 25, 2011 08:23 V1-PT DECLINES REF TO [facility] TOBACCO CESS [facility] [place] S Apr 25, 2011 08:23 V1-PT DECLINES TOBACCO [facility] AM CESSATION MEDS [place] [facility] Apr 25, 2011 08:23 V1-PT THINKING ABOUT QUIT [facility] TOBACCO USE [place] [facility] Aug 16, 2010 09:12 CURRENT SMOKER [facility] AM 1 pk per wk [place] [facility] Aug 16, 2010 09:12 V1-PT DECLINES REF TO [facility] AM TOBACCO CESS [facility] [place] S Aug 16, 2010 09:12 V1-PT DECLINES TOBACCO [facility] AM CESSATION MEDS [place] [facility] Aug 16, 2010 09:12 V1-PT NOT INTERESTED IN [facility] CN TRL [facility] AM QUIT TOBACCO USE [place] [facility] Dec 28, 2009 08:21 V1-PT DECLINES REF TO [facility] AM TOBACCO CESS [facility] [place] S Dec 28, 2009 08:21 V1-PT THINKING ABOUT QUIT [facility] TOBACCO USE [place] [facility] Mar 20, 2009 10:53 V1-PT DECLINES REF TO [facility] Mar 20, 2009 10:53 V1-PT DECLINES TOBACCO [facility] AM CESSATION MEDS [place] [facility] Mar 20, 2009 10:53 V1-PT NOT INTERESTED IN [facility] CN T[facility] AM QUIT TOBACCO USE [place] [facility] Mar 13, 2009 09:37 CURRENT SMOKER [facility] AM just when he is drinking. He can 't stand it otherwise. [facility] Advance Directives: All historical and current Section Date Range: From patient's date of to the date document was created. This section includes ALL of a patient's completed or amended [place] Advance and Rescinded Directives. The entries below indicate that a directive exists for the patient, but an actual copy is not included with this document. The data comes from all [place] facilities. Date Advance Directives Provider Source Jun 08, 2014 ADVANCE DIRECTIVE TARYN VILLATORO [place] [facility] Encounter Notes: All associated encounter notes This section contains the clinical notes associated to the Encounter. Date/Time Encounter Note(s) Provider Source Feb 23, 2021 08:38 PHARMACY MEDICATION MGT NOTE: LUX ALVARENGA [facility] W[facility] AM LOCAL TITLE: PHARMACY ANTICOAGULATION NOTE [facility] STANDARD TITLE: PHARMACY MEDICATION MGT NOTE DATE OF NOTE: FEB 23, 2021@08:38 ENTRY DATE: FEB 23, 2021@08:38:53 AUTHOR: DENNY ALVARENGA EXP COSIGNER: URGENCY: STATUS: COMPLETED PHARMACY ANTICOAGULATION NOTE Has ADDENDA * ANTICOAGULATION DOAC MONITORING NOTE SUBJECTIVE: Patient identified through the DOAC population M anagement Tool based on the following criteria: [ ] Dosing Issue [ ] Critical Drug Interaction [ ] Cancer Treatment [ ] Active NSAID [ X ] Labs Overdue [ ] Prosthetic Valve Replacement [ ] Notable Lab Value [ ] Overdue for Refill [ ] Other: Comments: CBC and Serum crea tinine recommended every 12mths for this patient on DOAC therapy. OBJECTIVE: Indication for anticoagulation: [ X ] Atrial fibrilation [ ] Atrial flutter [ ] VTE (DVT or PE) [ ] Post-op DVT prophylaxis [ ] Other: Most recent lab values include the following: HGB: HGB Collection DT Specimen Test Name Result Units Re f Range 01/13/2018 07:11 BLOOD HGB 13.3 g/dL 12.8 - 17 PLT: WBC Collection DT Specimen Test Name Result Units Re f Range 01/13/2018 07:11 BLOOD WBC 8.28 K/cmm 4.50 - 11. 00 Liver Function Tests No data available for: AST ALT ALKALINE PHOSPHATASE ALBUMIN BILIRUBIN, TOTAL LDH PROTEIN,TOTAL HEIGHT: 74 in [188.0 cm] (04/16/2019 08:07) WEIGHT: 303 lb [137.7 kg] (11/09/2020 08:35) BMI: BMI: 39.0 CREATININE-EGFR 05/05/20 07:28 0.76 CRCL IBW: CrCl(est): 131.8 mL/min (Creat:0.76 ) CRCL ACT: No Creat CRCL ADJ: 131.8 mL/min (05/05/20) ASSESSMENT: overdue labs Action required? [ X ] Yes [ ] No Comments: PCP has ordered fa sting labs for patient. Will mail letter asking that patient have labs completed within the next 30 d ays. PLAN: [ ] No action required, dismiss flag [ X ] Will intervene: [ X ] Patient education via phone/letter [ ] Schedule phone/[id number] follow up [ ] Lab ordered [ ] Discontinue interacting medication [ ] Discontinue DOAC [ ] Change to alternative DOAC [ ] Change DOAC dose [ ] Notify PCP [ ] Consult cardiology/hematology [ ] Other: Time spent: 5 min /samir/ DENNY ALVARENGA CPHT Clinical Oven Technician Signed: 02/23/2021 08:40 Receipt Acknowledged By: 02/23/2021 10:31 /samir/ HECTOR PHILLIPS PharmD, BCGP Clinical Packing And Shipping Clerk 02/23/2021 ADDENDUM STATUS: COMPLETED Above case reviewed as enter ed by [facility] Records Manager. Agree with current assessment and plan of care for this patient's anticoagulat ion management as noted. /quinton PHILLIPS PharmD, BCGP Clinical Packing And Shipping Clerk Signed: 02/23/2021 10:31
--- NOTE | 2021-12-15 14:47 | ED.BACK ---
HPI - Back Pain/Injury General Chief Complaint: Back Pain/Injury Stated Complaint: lower back inj Time Seen by Provider: 12/15/21 14:03 History of Present Illness HPI Narrative: Patient complains of left-sided low back pain radiating into the gluteal area that started while bending and raking and moving leaves this afternoon. There is no numbness weakness or tingling there was no loss of sensation there is no difficulty walking there is no changes to bowel or bladder no incontinence, he did not fall Related Data Home Medications Medication Instructions Recorded Confirmed lisinopril 10 mg tablet 10 mg PO DAILY 11/24/19 09/12/21 omeprazole 20 mg tablet,delayed 20 mg PO DAILY 11/24/19 09/12/21 release multivitamin 1 tab PO DAILY 09/27/20 09/12/21 omega-3 fatty acids 1,000 mg 1,000 mg PO DAILY 09/27/20 09/12/21 capsule (Fish Oil Concentrate) apple cider vinegar 500 mg tablet mg PO 09/12/21 09/12/21 magnesium 250 mg tablet 250 mg PO DAILY 09/12/21 09/12/21 Previous Rx's Medication Instructions Recorded CPAP #1 ea 12/30/19 apixaban 5 mg tablet (Eliquis) 5 mg PO BID 90 days #180 tabs 02/27/21 dronedarone 400 mg tablet (Multaq) 400 mg PO BID 90 days #180 tabs 02/27/21 rosuvastatin 20 mg tablet 20 mg PO DAILY #90 tabs 06/07/21 sertraline 50 mg tablet 50 mg PO DAILY 90 days #90 tabs 11/27/21 acetaminophen 500 mg capsule 1,000 mg PO TID PRN pain #30 caps 12/15/21 oxycodone 5 mg tablet 5 mg PO Q6H PRN pain #10 tabs 12/15/21 cyclobenzaprine 5 mg tablet 5 mg PO TID PRN muscle spasm #14 12/18/21 tabs meloxicam 15 mg tablet 15 mg PO DAILY #7 tabs 12/18/21 Allergies Allergy/AdvReac Type Severity Reaction Status Date / Time morphine [MORPHINE] Allergy Intermediate ANXIETY,AGITATION, Verified 12/18/21 08:49 severe aggitation Review of Systems Review of Systems: Positive for left-sided back pain worse with movement Negatives been no fever no chills no dizziness weakness no headache no neck pain no chest pain no abdominal pain no nausea or vomiting no dysuria no incontinence no changes to bowel or bladder no constipation no loss of sensation in extremities no weakness no problem walking Yes all other systems are reviewed and are negative [facility] Past Medical History Source: nursing notes reviewed Medical History (Updated 12/18/21 @ 09:23 by Fercho Kerr MD) AAA (abdominal aortic aneurysm) Anemia Anxiety and depression BPH (benign prostatic hyperplasia) CAD (coronary artery disease) Diverticulosis GERD (gastroesophageal reflux disease) History of cardioversion Hx of skin cancer, basal cell Hyperlipemia Hypertension Major depression, recurrent, chronic PAF (paroxysmal atrial fibrillation) PTSD (post-traumatic stress disorder) Skin cancer Sleep apnea Surgical History (Updated 11/05/21 @ 13:09 by SIM Perla) H/O umbilical hernia repair H/O vein stripping (~06/08/21) History of cardiac radiofrequency ablation History of esophagogastroduodenoscopy (EGD) History of incision and drainage History of total left hip arthroplasty Hx of cardiac catheterization Hx of colonoscopy Hx of right knee surgery Hx of tonsillectomy Family History Family History Father Esophageal cancer Mother Esophageal cancer Social History Social History Housing: House Patient Tobacco Use Status: Current everyday Tobacco user Cigarettes Per Day: 3 e-Cigarette/Vaping Use: Never Used Current occupational status: retired Cognitive needs: No Hearing needs: No Vision needs: No Physical Exam Vital Signs: Vital Signs: Last Vital Signs Temp 98.2 F 12/15/21 13:18 Pulse 79 12/15/21 13:18 Resp 18 12/15/21 13:18 BP 112/70 12/15/21 13:18 Pulse Ox 96 12/15/21 13:18 O2 Del Method 12/15/21 13:18 BMI result Body Mass Index 37.2 General appearance no acute distress Head is normocephalic atraumatic Neck is supple Chest is clear to auscultation bilateral Heart no murmur auscultated Abdomen soft nontender The back had left-sided lower lumbar tenderness, pain is easily reproduced with movement, there were no rashes wounds or redness on the back no swelling, no CVA tenderness no focal bony tenderness Extremities full range of motion x4 Neuro no focal motor sensory deficits Course Course Course Narrative: Patient with back strain is treated with analgesics and will follow with primary doctor, no neurologic deficit no changes to bowel or bladder Discharge Plan Discharge Clinical Impression: Back strain Patient Disposition: Home, Self-Care Additional Instructions: You have likely strained a muscle or ligament in your back, there is no sign of any neurologic injury or dangerous injury now Follow with primary doctor for possible physical therapy and further evaluation Return any time any worse condition or any concerns Most back strain is self limited, but some cases you will need further evaluation ANTI INFLAMMATORIES CAN INCREASE THE RISK OF BLEEDING IN COMBINATION WITH HER ELIQUIS SO IT IS USUALLY NOT RECOMMENDED TO TAKE ANY ANTI-INFLAMMATORIES OR ASPIRIN WHILE YOU ARE TAKING ELIQUIS ACETAMINOPHEN, ALSO KNOWN TYLENOL, IS SAFE TO TAKE IF YOU FEEL YOU NEED TO TAKE AN ANTI-INFLAMMATORY TALK TO YOUR DOCTOR BEFORE TAKING Prescriptions: New oxycodone 5 mg tablet 5 mg PO Q6H PRN (Reason: pain) Qty: 10 0RF Rx Instructions: Partial Fill upon patient request. acetaminophen 500 mg capsule 1,000 mg PO TID PRN (Reason: pain) Qty: 30 0RF No Action (DME) CPAP See Rx Instructions .Route .MEDSUPPLY Qty: 1 0RF Rx Instructions: As directed, for sleep apnea rosuvastatin 20 mg tablet 20 mg PO DAILY Qty: 90 2RF sertraline 50 mg tablet 50 mg PO DAILY 90 Days Qty: 90 0RF lisinopril 10 mg Tablet 10 mg PO DAILY omeprazole 20 mg Tablet,Delayed Release (Dr/Ec) 20 mg PO DAILY omega-3 fatty acids [Fish Oil Concentrate] 1,000 mg capsule 1,000 mg PO DAILY multivitamin Tablet 1 tab PO DAILY magnesium 250 mg tablet 250 mg PO DAILY apple cider vinegar 500 mg tablet PO meloxicam 15 mg tablet 15 mg PO DAILY Qty: 7 0RF cyclobenzaprine 5 mg tablet 5 mg PO TID PRN (Reason: muscle spasm) Qty: 14 0RF Rx Instructions: Medication may cause drowsiness, so no driving for 8 hours after taking Eliquis 5 mg tablet 5 mg PO BID 90 Days Qty: 180 3RF Multaq 400 mg tablet 400 mg PO BID 90 Days Qty: 180 3RF Interventions: ED Discharge Assessment Last Done: 12/15/21 15:05 Discharge Date/Time: 12/15/21 15:06
[2021-12-15] MEDS: Acetaminophen 325 MG TABLET 975 MG PO (14:56)
[2021-12-15] MEDS: oxyCODONE HCl Immed Release 5 MG TABLET 10 MG PO (14:56)
== END 2021-12-15 15:06 | disposition home or self-care (01) ==
PROVIDERS: Emergency Provider Emergency Medicine; PCP Nurse Practitioner Family
DX: S39.012A Strain of muscle, fascia and tendon of lower back, initial encounter (principal); X50.1XXA Overexertion from prolonged static or awkward postures, initial encounter; Y93.H1 Activity, digging, shoveling and raking; Y92.017 Garden or yard in single-family (private) house as the place of occurrence of the external cause; Y99.9 Unspecified external cause status
CPT/HCPCS: 99283

== ENCOUNTER 2022-01-23 07:05 | Outpatient (REF) | payer MEDICARE, SELFPAY ==
--- NOTE | ~2022-01-23 | XR_ITS ---
EXAMINATION: XR knee RT 2V, XR knee standing BI CLINICAL INFORMATION: Reason for Exam M25.569 - Pain in unspecified knee COMPARISON: Knee radiographs 09/02/2012 TECHNIQUE: Two views of the right knee and one view of the bilateral knees standing. FINDINGS: No acute fracture or dislocation. 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 Moderate to advanced degenerative changes of the left knee with near complete loss of medial compartment joint space. These are progressed from prior. No joint effusion or soft tissue abnormality. 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 Moderate to advanced degenerative changes of the left knee progressed from prior.
--- NOTE | ~2022-01-23 | XR_ITS ---
EXAMINATION: XR knee RT 2V, XR knee standing BI CLINICAL INFORMATION: Reason for Exam M25.569 - Pain in unspecified knee COMPARISON: Knee radiographs 09/02/2012 TECHNIQUE: Two views of the right knee and one view of the bilateral knees standing. FINDINGS: No acute fracture or dislocation. 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 Moderate to advanced degenerative changes of the left knee with near complete loss of medial compartment joint space. These are progressed from prior. No joint effusion or soft tissue abnormality. XR/XR knee standing BI IMPRESSION: Advanced degenerative changes of the right knee progressed from prior. Moderate to advanced degenerative changes of the left knee progressed from prior.
== END 2022-01-23 07:06 | disposition home or self-care (01) ==
LOC: HO.HOSX 07:05
PROVIDERS: Visit Provider Physician Assistant
DX: M17.11 Unilateral primary osteoarthritis, right knee (principal)
CPT/HCPCS: 73560; 73565; 99202

== ENCOUNTER 2022-01-25 11:04 | Emergency (ER) | payer MEDICARE, SELFPAY ==
--- NOTE | ~2022-01-25 | XR_ITS ---
EXAMINATION: XR CHEST CLINICAL INFORMATION: Chest pain. COMPARISON: Most recent chest radiograph dated 08/05/2020. TECHNIQUE: Frontal view of the chest was obtained. FINDINGS: The lungs are clear. The cardiomediastinal silhouette is normal in size. There is no pleural effusion or pneumothorax. No acute osseous abnormality. XR/XR chest 1V IMPRESSION: No acute cardiopulmonary findings.
[2022-01-25 11:05] VITALS: BP 162/81; PULSE 83; RESP 18; TEMP 36.7; O2SAT 96; BMI 38.5
--- NOTE | 2022-01-25 11:08 | ECG_ITS ---
Test Reason : chest pain Blood Pressure : / mmHG Vent. Rate : 079 BPM Atrial Rate : 079 BPM P-R Int : 182 ms QRS Dur : 086 ms QT Int : 378 ms P-R-T Axes : 055 039 037 degrees QTc Int : 433 ms Normal sinus rhythm Normal EKG When compared with ECG of 05-AUG-2020 10:09, No significant change was found Referred By: Generic ED Physician Electronically Signed By:HIWOT MOBLEY
[2022-01-25 11:27] LABS: Hematocrit 37.4 % (42.0-52.0); Hemoglobin 12.8 g/dl (14.0-18.0); Mean Corpuscular HGB Conc 34.2 g/dl (31.0-36.0); Mean Corpuscular Volume 90.6 fL (80.0-98.0); Mean Platelet Volume 9.9 fL (9.4-12.4); Platelet Count 235 X10*3/uL (160-400); Red Blood Count 4.13 X10*6/uL (4.60-5.80); Red Cell Distribution Width 12.7 % (11.0-16.0); White Blood Count 7.6 X10*3/uL (4.8-10.8)
[2022-01-25 11:40] LABS: Anion Gap 14 (12-20); Blood Urea Nitrogen 13 mg/dL (9-16); Carbon Dioxide 24 mmol/L (22-29); Chloride 101 mmol/L (96-108); Creatinine Clr Calc Pharmacy 126.5; Estimated Glomerular Filt Rate > 60; Glucose Random 121 mg/dL (60-115); Sodium 135 mmol/L (135-145)
[2022-01-25 11:48] LABS: Troponin-I High Sensitivity 4.8 ng/L (<3.5-35.0)
[2022-01-25 11:54] LABS: B Type Natriuretic Peptide < 10 pg/mL (<100)
--- NOTE | 2022-01-25 12:08 | ED.GENADULT ---
HPI - General Adult General Chief complaint: Arrhythmia/Palpitations Stated complaint: Chest Pain Time Seen by Provider: 01/25/22 12:06 Source: patient and old records reviewed Mode of arrival: ambulatory Limitations: no limitations History of Present Illness HPI narrative: 58-year-old male with history of paroxysmal AFib on apixaban, CAD, HTN, PTSD, HLD anxiety/depression, anemia, AAA, VIDYA who presents to the ER c/o transient shortness of breath that occurred today when he was washing his floors. He states when he was washing his floors he felt suddenly short of breath and had tingling in both of his arms, hands as well as his legs. He felt lightheaded. States he was standing upright when the symptoms started. He felt like his sugar might be low so he drink 2 Gatorade and sat down. The feeling slowly dissipated and he feels back to normal now. He denies any chest pain at the time of the event. He has been anxious about getting a knee replacement in April. MD complaint: Shortness of breath and tingling in all 4 extremities Onset (ago): hour(s) Location: chest, left, right and upper extremity Severity: moderate Pain Consistency: now resolved Relieving factors: rest Exacerbating factors: none Associated symptoms: shortness of breath Treatments prior to arrival: none Related Data Home Medications Medication Instructions Recorded Confirmed lisinopril 10 mg tablet 10 mg PO DAILY 11/24/19 09/12/21 omeprazole 20 mg tablet,delayed 20 mg PO DAILY 11/24/19 09/12/21 release multivitamin 1 tab PO DAILY 09/27/20 09/12/21 omega-3 fatty acids 1,000 mg 1,000 mg PO DAILY 09/27/20 09/12/21 capsule (Fish Oil Concentrate) apple cider vinegar 500 mg tablet mg PO 09/12/21 09/12/21 magnesium 250 mg tablet 250 mg PO DAILY 09/12/21 09/12/21 Previous Rx's Medication Instructions Recorded CPAP #1 ea 12/30/19 apixaban 5 mg tablet (Eliquis) 5 mg PO BID 90 days #180 tabs 02/27/21 dronedarone 400 mg tablet (Multaq) 400 mg PO BID 90 days #180 tabs 02/27/21 rosuvastatin 20 mg tablet 20 mg PO DAILY #90 tabs 06/07/21 sertraline 50 mg tablet 50 mg PO DAILY 90 days #90 tabs 11/27/21 acetaminophen 500 mg capsule 1,000 mg PO TID PRN pain #30 caps 12/15/21 cyclobenzaprine 5 mg tablet 5 mg PO TID PRN muscle spasm #14 12/18/21 tabs Allergies Allergy/AdvReac Type Severity Reaction Status Date / Time morphine [MORPHINE] Allergy Intermediate ANXIETY,AGITATION, Verified 12/18/21 08:49 severe aggitation Review of Systems Review of Systems: Constitutional: No Fever, No Chills ENT/Mouth: No sore throat, No Rhinorrhea, No Swallowing Difficulty Eyes: No Eye Pain, No Swelling, No Redness Cardiovascular: No Chest Pain, + SOB, No Orthopnea, No Edema Respiratory: No Cough, No Sputum, No Wheezing, No dyspnea Gastrointestinal: No Nausea, No Vomiting, No Diarrhea, No abdominal Pain, No Hematochezia, No Melena Genitourinary: No Dysuria, No Urinary Frequency, No Hematuria Musculoskeletal: No joint pain, No Myalgias Skin: No Skin Lesions, No rash Neuro: No Weakness, + Numbness/tingling, + Dizziness, No Headache Psych:+ Anxiety/Panic, No Depression Heme/Lymph: No Bruising, No Lymphadenopathy Endocrine: No Polyuria, No Polydipsia [facility] Past Medical History Medical History (Updated 01/26/22 @ 00:02 by Rickey Orourke) AAA (abdominal aortic aneurysm) Anemia Anxiety and depression BPH (benign prostatic hyperplasia) CAD (coronary artery disease) Diverticulosis GERD (gastroesophageal reflux disease) History of cardioversion Hx of skin cancer, basal cell Hyperlipemia Hypertension Major depression, recurrent, chronic PAF (paroxysmal atrial fibrillation) PTSD (post-traumatic stress disorder) Skin cancer Sleep apnea Surgical History (Updated 11/05/21 @ 13:09 by SIM Perla) H/O umbilical hernia repair H/O vein stripping (~06/08/21) History of cardiac radiofrequency ablation History of esophagogastroduodenoscopy (EGD) History of incision and drainage History of total left hip arthroplasty Hx of cardiac catheterization Hx of colonoscopy Hx of right knee surgery Hx of tonsillectomy Family History Family History Father Esophageal cancer Mother Esophageal cancer Social History Social History Housing: House Patient Tobacco Use Status: Current everyday Tobacco user Cigarettes Per Day: 3 e-Cigarette/Vaping Use: Never Used Advance Directives: No Advance Directives Information Provided: Yes Current occupational status: retired Cognitive needs: No Hearing needs: No Vision needs: No Physical Exam ED Vital Signs: Vital Signs - 24 hr 01/25/22 11:05 01/25/22 13:23 01/25/22 13:25 Temperature 98.1 F Pulse Rate 83 73 72 Respiratory Rate 18 14 Blood Pressure 162/81 H 129/71 123/63 Pulse Oximetry 96 96 Oxygen Delivery Method Room Air Room Air 01/25/22 13:26 01/25/22 13:28 Temperature Pulse Rate 78 83 Respiratory Rate Blood Pressure 113/64 129/74 Pulse Oximetry Oxygen Delivery Method BMI result Body Mass Index 38.5 Appearance: Alert. Oriented X3. No acute distress. Eyes: Pupils equal, round and reactive to light. ENT: Pharynx normal. Neck: Normal inspection. Neck supple. CVS: Normal heart rate and rhythm. Pulses normal. Respiratory: No respiratory distress. Breath sounds normal. Abdomen: Soft and nontender. +BS x4 Skin: Skin warm and dry. Normal skin color. Normal skin turgor. No rashes. Extremities: No lower extremity edema. No calf tenderness or swelling Neuro: Oriented X 3. No motor deficit. No sensory deficit. CN II-XII intact. Normal speech and cognition. Course Course Course Narrative: 66 yo male with history of HTN, CAD, Par on Eliquis, depression and recent anxiety presenting with transient SOB and all 4 extremities with tingling that occurred today while washing the floor. Improved and resolved with rest and drinking gatorade. No associated chest pain. Symptoms are resolved upon arrival to the ER. He appears well. Will check troponin, EKG, lab workup. Reevaluation(s) Reevaluation #1: Lab workup was unremarkable. patient continues to feel well. He would like to go home. Symptoms may have been related to acute anxiety attack given the paresthesias in all 4 extremities that have since resolved. We discussed return precautions, comfortable discharge home. He has appointment with his PCP next week. Medical Decision Making Lab Data MDM Lab Attestation statement: I reviewed the patient's lab results. Result Diagrams: 01/25/22 11:19 01/25/22 11:19 Labs: Lab Results 01/25/22 01/25/22 01/25/22 Range/Units 11:19 11:19 11:19 WBC 7.6 (4.8-10.8) X10*3/uL RBC 4.13 L (4.60-5.80) X10*6/uL Hgb 12.8 L (14.0-18.0) g/dl Hct 37.4 L (42.0-52.0) % MCV 90.6 (80.0-98.0) fL MCH 31.0 (27.0-33.0) pg MCHC 34.2 (31.0-36.0) g/dl RDW 12.7 (11.0-16.0) % Plt Count 235 (160-400) X10*3/uL MPV 9.9 (9.4-12.4) fL Absolute Nucleated RBC 0.000 (0.0-0.012) X10*3/uL Nucleated RBC % (auto) 0.0 (0.0-0.2) /100WBC Sodium 135 (135-145) mmol/L Potassium 4.0 (3.3-5.1) mmol/L Chloride 101 (96-108) mmol/L Carbon Dioxide 24 (22-29) mmol/L Anion Gap 14 (12-20) BUN 13 (9-16) mg/dL Creatinine 0.82 (0.5-1.4) mg/dL Estim Creat Clear Calc 126.5 Estimated GFR > 60 Random Glucose 121 H (60-115) mg/dL Calcium 9.0 (8.4-10.2) mg/dL Troponin I High Sens (<3.5-35.0) ng/L B-Natriuretic Peptide < 10 (<100) pg/mL 01/25/22 01/25/22 Range/Units 11:19 14:30 WBC (4.8-10.8) X10*3/uL RBC (4.60-5.80) X10*6/uL Hgb (14.0-18.0) g/dl Hct (42.0-52.0) % MCV (80.0-98.0) fL MCH (27.0-33.0) pg MCHC (31.0-36.0) g/dl RDW (11.0-16.0) % Plt Count (160-400) X10*3/uL MPV (9.4-12.4) fL Absolute Nucleated RBC (0.0-0.012) X10*3/uL Nucleated RBC % (auto) (0.0-0.2) /100WBC Sodium (135-145) mmol/L Potassium (3.3-5.1) mmol/L Chloride (96-108) mmol/L Carbon Dioxide (22-29) mmol/L Anion Gap (12-20) BUN (9-16) mg/dL Creatinine (0.5-1.4) mg/dL Estim Creat Clear Calc Estimated GFR Random Glucose (60-115) mg/dL Calcium (8.4-10.2) mg/dL Troponin I High Sens 4.8 5.8 (<3.5-35.0) ng/L B-Natriuretic Peptide (<100) pg/mL Independent Interpretation I performed an independent interpretation of an: EKG Interpretation: Normal sinus rhythm, ventricular rate 79 beats per minute, normal NE interval, normal QTC, no ST segment elevations or depressions. No significant change from prior in July of 2020. External Record Review External record reviewed: Prior outpatient labs Discharge Plan Discharge Clinical Impression: Anxiety Patient Disposition: Home, Self-Care Instructions: Anxiety (ED) Additional Instructions: Your lab workup and EKG today were unremarkable. Anxiety may have been playing a role in your symptoms today. Recommend rest, plenty of hydration. Follow-up with your PCP on Friday as scheduled. If you have new or worsening symptoms call 911 or come back to the ER for further evaluation. Prescriptions: No Action (DME) CPAP See Rx Instructions .Route .MEDSUPPLY Qty: 1 0RF Rx Instructions: As directed, for sleep apnea rosuvastatin 20 mg tablet 20 mg PO DAILY Qty: 90 2RF sertraline 50 mg tablet 50 mg PO DAILY 90 Days Qty: 90 0RF lisinopril 10 mg Tablet 10 mg PO DAILY omeprazole 20 mg Tablet,Delayed Release (Dr/Ec) 20 mg PO DAILY acetaminophen 500 mg capsule 1,000 mg PO TID PRN (Reason: pain) Qty: 30 0RF omega-3 fatty acids [Fish Oil Concentrate] 1,000 mg capsule 1,000 mg PO DAILY multivitamin Tablet 1 tab PO DAILY magnesium 250 mg tablet 250 mg PO DAILY apple cider vinegar 500 mg tablet PO cyclobenzaprine 5 mg tablet 5 mg PO TID PRN (Reason: muscle spasm) Qty: 14 0RF Rx Instructions: Medication may cause drowsiness, so no driving for 8 hours after taking Eliquis 5 mg tablet 5 mg PO BID 90 Days Qty: 180 3RF Multaq 400 mg tablet 400 mg PO BID 90 Days Qty: 180 3RF Interventions: ED Discharge Assessment Last Done: 01/25/22 15:47 Discharge Date/Time: 01/25/22 15:48
[2022-01-25 13:23] VITALS: BP 129/71; PULSE 73; RESP 14; O2SAT 96
[2022-01-25 13:25] VITALS: BP 123/63; PULSE 72
[2022-01-25 13:26] VITALS: BP 113/64; PULSE 78
[2022-01-25 13:28] VITALS: BP 129/74; PULSE 83
[2022-01-25 14:59] LABS: Troponin-I High Sensitivity 5.8 ng/L (<3.5-35.0)
== END 2022-01-25 15:48 | disposition home or self-care (01) ==
PROVIDERS: Physician Assistant; Emergency Provider Student in an Organized Health Care Education/Training Program; PCP Nurse Practitioner Family
DX: F41.9 Anxiety disorder, unspecified (principal); R06.02 Shortness of breath; I10 Essential (primary) hypertension; E78.5 Hyperlipidemia, unspecified; I48.0 Paroxysmal atrial fibrillation; F17.210 Nicotine dependence, cigarettes, uncomplicated; Z79.01 Long term (current) use of anticoagulants; Z79.02 Long term (current) use of antithrombotics/antiplatelets; Z79.899 Other long term (current) drug therapy
CPT/HCPCS: 36415; 71045; 80048; 83880; 84484; 85027; 93005; 99283; 99284

== ENCOUNTER 2022-02-12 06:06 | Outpatient (REF) | payer MEDICARE, SELFPAY ==
[2022-02-12 11:19] LABS: MANUAL DIFF FLAG NO
[2022-02-12 11:32] LABS: Appearance Urine Cloudy; Color Urine Yellow; Glucose Urine UA Negative (Negative); Leukocyte Esterase Urine Negative (Negative); Nitrite Urine Negative (Negative); Specific Gravity - Urine 1.025 (1.005-1.025); UMIC TRIGGER UACC YES; Urine Blood Negative (Negative); Urine Ketones Negative (Negative); Urine Protein 30 (1+) mg/dL (Neg-Trace)
[2022-02-12 11:38] LABS: Bacteria Urine None Seen (None Seen); Hyaline Casts Urine 0-2 /LPF (0-2); RBC Urine 0-2 /HPF (0-2); Squamous Epithelial Cell Urine 0-2 /HPF (0-2); WBC Urine 0-5 /HPF (0-5)
[2022-02-12 11:40] LABS: Basophils Absolute Auto 0.1 X10*3/uL (0.0-0.2); Basophils Percent Auto 0.9 % (0-2); Eosinophils Absolute Auto 0.1 X10*3/uL (0.0-0.4); Eosinophils Percent Auto 1.6 % (0-4); Hematocrit 42.8 % (42.0-52.0); Hemoglobin 13.9 g/dl (14.0-18.0); Imm Gran Abs Auto 0.02 X10*3/uL (0.00-0.03); Imm Gran Pct Auto 0.3 % (0.0-0.4); Lymphocytes Absolute Auto 1.7 X10*3/uL (1.2-4.9); Mean Corpuscular HGB Conc 32.5 g/dl (31.0-36.0); Mean Corpuscular Hemoglobin 30.4 pg (27.0-33.0); Mean Corpuscular Volume 93.7 fL (80.0-98.0); Mean Platelet Volume 10.3 fL (9.4-12.4); Monocytes Absolute Auto 0.7 X10*3/uL (0.1-1.2); Monocytes Percent Auto 9.9 % (2-11); Neutrophils Absolute Auto 4.4 x10*3/uL (2.0-8.3); Neutrophils Percent Auto 62.3 % (45-73); Platelet Count 255 X10*3/uL (160-400); Red Blood Count 4.57 X10*6/uL (4.60-5.80)
[2022-02-12 12:17] LABS: Alanine Aminotransferase 19 U/L (0-40); Albumin Level 4.6 g/dL (3.5-5.0); Alkaline Phosphatase 71 U/L (39-117); Anion Gap 11 (12-20); Aspartate Amino Transferase 20 U/L (5-37); Bilirubin Total 0.5 mg/dL (0.0-1.0); Blood Urea Nitrogen 22 mg/dL (9-16); Calcium 9.9 mg/dL (8.4-10.2); Carbon Dioxide 32 mmol/L (22-29); Chloride 101 mmol/L (96-108); Cholesterol 148 mg/dL; Estimated Glomerular Filt Rate > 60; Glucose Fasting 107 mg/dL (60-99); HDL Cholesterol 52 mg/dL; LDL Cholesterol Calculated 65 mg/dl; Potassium 4.6 mmol/L (3.3-5.1); Sodium 139 mmol/L (135-145); Total Protein 7.5 g/dL (6.5-8.0); Triglycerides 155 mg/dL
[2022-02-12 12:39] LABS: Prostate Specific Antigen Scr 0.35 ng/mL (<0.05-4.0); TSH reflex Free T4 1.45 uIU/mL (0.32-4.0)
== END 2022-02-12 06:07 | disposition home or self-care (01) ==
LOC: HO.HMGCLDS 06:06
PROVIDERS: PCP Nurse Practitioner Family; Visit Provider Nurse Practitioner Family
DX: I25.10 Atherosclerotic heart disease of native coronary artery without angina pectoris (principal); F41.8 Other specified anxiety disorders; I48.0 Paroxysmal atrial fibrillation; Z12.5 Encounter for screening for malignant neoplasm of prostate
CPT/HCPCS: 36415; 80053; 80061; 81001; 84153; 84443; 85025

== ENCOUNTER → 2022-02-14 08:34 | Outpatient (BNVA) | payer MEDICARE, SELFPAY | PROVIDERS: PCP Nurse Practitioner Family; Visit Provider Orthopaedic Surgery | DX: M17.11 Unilateral primary osteoarthritis, right knee (principal); I71.40 Abdominal aortic aneurysm, without rupture, unspecified; I25.10 Atherosclerotic heart disease of native coronary artery without angina pectoris; I48.0 Paroxysmal atrial fibrillation; Z79.01 Long term (current) use of anticoagulants | CPT/HCPCS: 99212 ==

== ENCOUNTER → 2022-03-05 08:11 | Outpatient (BNVA) | payer MEDICARE, SELFPAY | PROVIDERS: PCP Nurse Practitioner Family; Referring Provider Nurse Practitioner Family; Visit Provider Internal Medicine Cardiovascular Disease | DX: Z01.810 Encounter for preprocedural cardiovascular examination (principal); I48.0 Paroxysmal atrial fibrillation; I25.10 Atherosclerotic heart disease of native coronary artery without angina pectoris; I71.20 Thoracic aortic aneurysm, without rupture, unspecified | CPT/HCPCS: 93005; 99212 ==

== ENCOUNTER → 2022-03-15 08:42 | Outpatient (REF) | payer MEDICARE, SELFPAY ==
--- NOTE | ~2022-03-15 | NM_ITS ---
Lexiscan Myocardial perfusion study Indication: Coronary disease, preoperative evaluation, assess for ischemia Technique: The patient was brought in for a Lexiscan perfusion study on 03/15/2022 and was injected 0.4 mg of Lexiscan intravenously. Within a minute of this injection 45 mCi of sestamibi was given intravenously. Images were obtained using the SPECT gamma camera interlaced with the gating device. Images were obtained in supine position. Resting perfusion study was performed on 03/18/2022. Patient was administered 45 mCi of sestamibi intravenously at rest. Images were then obtained in supine position. Total DLP 148mGy-cm. Images were processed with the software and compared side to side in short axis, horizontal long axis and vertical long axis views. Findings: Raw acquisition reviewed. The stress perfusion study showed mildly reduced tracer uptake in the basal part of inferior wall. With CT attenuation correction, there is improvement suggesting diaphragmatic attenuation artifact. The gated study shows normal LV systolic function with calculated LVEF of 62%. LV cavity is normal in size. The gated study shows normal wall thickening and contraction of segments. Resting study shows mildly reduced tracer uptake in the basal part of inferior wall. There is improvement with CT at admission correction suggesting diaphragmatic attenuation artifact. Gating at rest reveals normal wall motion with ejection fraction at 54%. The findings are consistent with basal inferior defect, fixed, likely from diaphragmatic attenuation artifact. No clear reversible defects. NM/NM kush perf SPECT rest & str Impression: 1. Myocardial perfusion imaging study shows no clear evidence of any ischemia or infarction. Probably normal perfusion. 2. Gated LVEF is 62% during stress and 54% during rest. 3. Transient ischemic dilatation not present. EKG component of the test reported separately.
--- NOTE | 2022-03-15 08:45 | CA_ITS ---
Acquisition Time: 2022-03-15 08:52:12 Total Exercise Time: 00:02:00 Test Indications: afib, preop Medications: see h Protocol: LEXISCAN Max HR: 110 BPM 72% of Pred: 152 BPM Max BP: 150/080 mmHG Max Work Load: 1.6 METS Pharmacological stress test with Lexiscan injection, while walking slow on treadmill, without anginal symptoms, without arrythmia, with normotensive response to injection, wiht nondiagnostic EKG for ischemia. Nuclear images pending. Test reviewed with Dr Escalona. Referred By: Cristopher Schuster Overread By: NADINE JOSEPH
== END ==
LOC: HO.CARD 08:42
PROVIDERS: PCP Nurse Practitioner Family; Visit Provider Internal Medicine Cardiovascular Disease
DX: I25.10 Atherosclerotic heart disease of native coronary artery without angina pectoris (principal); I48.0 Paroxysmal atrial fibrillation
CPT/HCPCS: 78452; 93017; A9500; J0280; J2785

== ENCOUNTER → 2022-03-27 09:44 | Outpatient (BNVA) | payer MEDICARE, SELFPAY | PROVIDERS: PCP Nurse Practitioner Family; Visit Provider Orthopaedic Surgery | DX: Z13.89 Encounter for screening for other disorder (principal) ==

== ENCOUNTER 2022-04-09 08:26 | Outpatient (REF) | payer MEDICARE, SELFPAY ==
[2022-04-09 11:02] LABS: MANUAL DIFF FLAG NO
[2022-04-09 11:12] LABS: Basophils Absolute Auto 0.1 X10*3/uL (0.0-0.2); Basophils Percent Auto 0.7 % (0-2); Eosinophils Absolute Auto 0.1 X10*3/uL (0.0-0.4); Eosinophils Percent Auto 1.5 % (0-4); Hematocrit 40.9 % (42.0-52.0); Hemoglobin 13.5 g/dl (14.0-18.0); Imm Gran Abs Auto 0.03 X10*3/uL (0.00-0.03); Imm Gran Pct Auto 0.4 % (0.0-0.4); Lymphocytes Absolute Auto 1.9 X10*3/uL (1.2-4.9); Lymphocytes Percent Auto 25.3 % (20-40); Mean Corpuscular Hemoglobin 30.5 pg (27.0-33.0); Mean Corpuscular Volume 92.5 fL (80.0-98.0); Mean Platelet Volume 10.8 fL (9.4-12.4); Monocytes Absolute Auto 0.7 X10*3/uL (0.1-1.2); Monocytes Percent Auto 9.2 % (2-11); Neutrophils Absolute Auto 4.7 x10*3/uL (2.0-8.3); Neutrophils Percent Auto 62.9 % (45-73); Platelet Count 246 X10*3/uL (160-400); Red Blood Count 4.42 X10*6/uL (4.60-5.80); Red Cell Distribution Width 12.9 % (11.0-16.0); White Blood Count 7.5 X10*3/uL (4.8-10.8)
[2022-04-09 11:25] LABS: Alanine Aminotransferase 26 U/L (0-40); Albumin Level 4.3 g/dL (3.5-5.0); Alkaline Phosphatase 80 U/L (39-117); Anion Gap 12 (12-20); Aspartate Amino Transferase 22 U/L (5-37); Bilirubin Total 0.4 mg/dL (0.0-1.0); Blood Urea Nitrogen 12 mg/dL (9-16); Calcium 9.5 mg/dL (8.4-10.2); Carbon Dioxide 31 mmol/L (22-29); Chloride 102 mmol/L (96-108); Estimated Glomerular Filt Rate > 60; Glucose Random 98 mg/dL (60-115); Potassium 5.1 mmol/L (3.3-5.1); Sodium 140 mmol/L (135-145)
== END 2022-04-09 08:27 | disposition home or self-care (01) ==
LOC: HO.HMGCLDS 08:26
PROVIDERS: Orthopaedic Surgery; PCP Nurse Practitioner Family; Visit Provider Nurse Practitioner Family
DX: Z01.818 Encounter for other preprocedural examination (principal)
CPT/HCPCS: 36415; 80053; 85025

== ENCOUNTER → 2022-04-18 13:11 | Outpatient (BNVA) | payer MEDICARE, SELFPAY | PROVIDERS: PCP Nurse Practitioner Family; Visit Provider Physician Assistant | DX: M17.11 Unilateral primary osteoarthritis, right knee (principal) | CPT/HCPCS: 99212 ==

== ENCOUNTER 2022-04-23 07:31 | Day surgery (SDC) | payer MEDICARE, SELFPAY ==
[2022-04-11 12:10] VITALS: BP 131/65; PULSE 69; RESP 20; O2SAT 97; BMI 39.1
--- NOTE | 2022-04-11 12:36 | P.CONAN_ITS ---
Documented by User: Jessa Oliveira NP 04/11/22 12:48 HPI - Anesthesia Eval Consult details Narrative: 66yo M for Right Knee Replacement Total Cardiac cleared PCP cleared Eliquis for afib. OK to hold 3 days preop per cardiol. PMFSH Active Problems Active Problems: All Active Problems (Updated 04/11/22 @ 12:05 by Radha Tapia, JIN) Skin lesion (Acute) Leg mass (Acute) Lower back pain (Acute) Encounter for annual wellness visit (AWV) in Medicare patient (Acute) Depression (Acute) Screening PSA (prostate specific antigen) (Acute) Varicose veins of both lower extremities (Acute) Varicose veins of left lower extremity with inflammation (Acute) Abdominal discomfort (Acute) Encounter for subsequent annual wellness visit (AWV) in Medicare patient (Acute) Tubular adenoma of colon (Acute) Low back pain (Acute) Osteoarthritis of right knee (Acute) Anxiety with depression (Acute) Urinary urgency (Acute) Thoracic aortic aneurysm (Acute) Pre-op evaluation (Acute) AAA (abdominal aortic aneurysm) (Acute) Major depression, recurrent, chronic (Acute) PAF (paroxysmal atrial fibrillation) (Acute) Hypertension (Acute) CAD (coronary artery disease) (Acute) Past Medical History Medical History AAA (abdominal aortic aneurysm) Anemia Anxiety and depression BPH (benign prostatic hyperplasia) CAD (coronary artery disease) Diverticulosis GERD (gastroesophageal reflux disease) History of cardioversion Hx of skin cancer, basal cell Hyperlipemia Hypertension Major depression, recurrent, chronic Major depression, recurrent, chronic PAF (paroxysmal atrial fibrillation) PTSD (post-traumatic stress disorder) Skin cancer Sleep apnea Family History Family History Father Esophageal cancer Mother Esophageal cancer Family history of problems with anesthesia: No Surgical History Surgical History H/O umbilical hernia repair H/O vein stripping (~06/08/21) H/O vein stripping (~06/08/21) History of cardiac radiofrequency ablation History of esophagogastroduodenoscopy (EGD) History of incision and drainage History of prostate surgery History of prostate surgery History of total left hip arthroplasty Hx of arthroscopy of left knee Hx of arthroscopy of left knee Hx of blepharoplasty Hx of blepharoplasty Hx of cardiac catheterization Hx of colonoscopy Hx of right knee surgery Hx of tonsillectomy History of Problems with Anesthesia: No Social History Social History Household Members: Family Housing: House Are you a primary resident care technician to a significant other at home: No Do you presently have visiting nurse or other home services: No Patient Tobacco Use Status: Current everyday Tobacco user Smoking Start Date: 09/11/59 Tobacco use type: Cigarette Cigarettes Per Day: 2 Years Smoked: 25 Smoked in Last 30 Days: Yes e-Cigarette/Vaping Use: Never Used Patient Interested in Nicotine Replacement: No Second Hand Smoke Exposure: No Use of substances other than those prescribed or required for medical reasons: Yes Substance Use Type: Marijuana Substance Use Frequency: Daily Last Used Substance: Days (ago) Currently Displaying Signs/Symptoms of Drug Intoxication Withdrawal: No Any prior treatment program specific to substance use: No Have you been hit, kicked, punched, or otherwise hurt by someone within the past year? If so, by whom?: No Do you feel safe in your current relationship?: Yes Is there a partner from a previous relationship who is making you feel unsafe now?: No Are you made to feel afraid or neglected: No Are you DNR?: No Advance Directives: Yes Advance Directives Information Provided: Yes Advance Directives on File: Yes Advance Directives Date on File: 04/27/12 Do you have thoughts of harming others: None Do you have a plan to hurt others: No Plan Recently lost weight without trying: No Eating poorly because of decreased appetite: No Nutrition Risks: No Nutritional Risk Poor oral hygiene: No Current occupational status: retired Cognitive needs: No Hearing needs: No Vision needs: No Narrative Narrative: No recent cold/flu/covid. GI bug last week. No CP/SOB with >4 mets GERD well controlled on omeprazole VIDYA nightly. Encouraged continue preop Meds Allergies Allergy/AdvReac Type Severity Reaction Status Date / Time morphine [MORPHINE] Allergy Intermediate ANXIETY,AGITATION, Verified 04/18/22 13:19 severe aggitation Home Medications Medication Instructions Recorded Confirmed Last Taken Type lisinopril 10 mg tablet 10 mg PO DAILY 11/24/19 04/19/22 04/23/22 History omeprazole 20 mg tablet,delayed 20 mg PO DAILY 11/24/19 04/19/22 Unknown History release multivitamin 1 tab PO DAILY 09/27/20 04/19/22 Unknown History omega-3 fatty acids 1,000 mg 1,000 mg PO BID 09/27/20 04/19/22 Unknown History capsule (Fish Oil Concentrate) apple cider vinegar 500 mg tablet 500 mg PO BID 09/12/21 04/19/22 Unknown History magnesium 250 mg tablet 250 mg PO BEDTIME 09/12/21 04/19/22 Unknown History ibuprofen 200 mg tablet (IBU-200) 400 mg PO BID 01/30/22 04/19/22 Unknown History rosuvastatin 20 mg tablet 20 mg PO QAM 04/11/22 04/19/22 Unknown History sertraline 100 mg tablet 100 mg PO QAM 04/11/22 04/19/22 04/23/22 History Exam Exam Date and Time: April 11, 2022 1236 Height,Weight and Vital Signs: Height 6 ft 2 in Weight 138.346 kg Last Vital Signs Pulse 69 04/11/22 12:10 Resp 20 04/11/22 12:10 BP 131/65 04/11/22 12:10 Pulse Ox 97 04/11/22 12:10 O2 Del Method 04/11/22 12:10 Narrative Narrative: ECHO 12/2021 Conclusions: - The left ventricular systolic function is normal.? The ? calculated ejection fraction is 59% by biplane method. ? - There is mild aortic valve stenosis. ? - There is mild dilatation of the sinuses of Valsalva measuring? 4.43 cm and mild dilatation of the ascending aorta measuring 4.40 cm.? EKG 02/2022 normal sinus rhythm with normal EKG with normal QT interval NM kush perf SPECT rest & str 02/2022 Impression: ? 1.? Myocardial perfusion imaging study shows no clear evidence of any ischemia or infarction. Probably normal perfusion. 2.? Gated LVEF is 62% during stress and 54% during rest. 3. Transient ischemic dilatation not present. ? EKG component of the test reported separately. Airway Mallampati Class: I TM Dist: >3cm Neck ROM: Full Denture: Upper Loose/Missing/Broken Teeth: Yes (Lower molars puled) Heart: RRR Lungs: Coarse throughout, RLL wheeze - clears with cough Assessment and Plan Assessment Anesthesia Assessment: Anesthesia Plan Discussed, Smoking Cess. Discussed and PAT Visit Final Anesthetic Review Family History of Problems with Anesthesia: No History of Problems with Anesthesia: No Documented by User: Ronni Bear MD 04/23/22 17:11 HPI - Anesthesia Eval Consult details Narrative: 66yo M for Right Knee Replacement Total Optimized to proceed per cardiology and PCP Eliquis for afib. OK to hold 3 days preop per cardiol. [facility] Past Medical History Medical History AAA (abdominal aortic aneurysm) Anemia Anxiety and depression BPH (benign prostatic hyperplasia) CAD (coronary artery disease) Diverticulosis GERD (gastroesophageal reflux disease) History of cardioversion Hx of skin cancer, basal cell Hyperlipemia Hypertension Major depression, recurrent, chronic Major depression, recurrent, chronic PAF (paroxysmal atrial fibrillation) PTSD (post-traumatic stress disorder) Skin cancer Sleep apnea Functional capacity: independent ambulation Family History Family History Father Esophageal cancer Mother Esophageal cancer Surgical History Surgical History H/O umbilical hernia repair H/O vein stripping (~06/08/21) H/O vein stripping (~06/08/21) History of cardiac radiofrequency ablation History of esophagogastroduodenoscopy (EGD) History of incision and drainage History of prostate surgery History of prostate surgery History of total left hip arthroplasty Hx of arthroscopy of left knee Hx of arthroscopy of left knee Hx of blepharoplasty Hx of blepharoplasty Hx of cardiac catheterization Hx of colonoscopy Hx of right knee surgery Hx of tonsillectomy Social History Social History Household Members: Family Housing: House Are you a primary resident care technician to a significant other at home: No Do you presently have visiting nurse or other home services: No Patient Tobacco Use Status: Current everyday Tobacco user Smoking Start Date: 09/11/59 Tobacco use type: Cigarette Cigarettes Per Day: 2 Years Smoked: 25 Smoked in Last 30 Days: Yes e-Cigarette/Vaping Use: Never Used Patient Interested in Nicotine Replacement: No Second Hand Smoke Exposure: No Use of substances other than those prescribed or required for medical reasons: Yes Substance Use Type: Marijuana Substance Use Frequency: Daily Last Used Substance: Days (ago) Currently Displaying Signs/Symptoms of Drug Intoxication Withdrawal: No Any prior treatment program specific to substance use: No Have you been hit, kicked, punched, or otherwise hurt by someone within the past year? If so, by whom?: No Do you feel safe in your current relationship?: Yes Is there a partner from a previous relationship who is making you feel unsafe now?: No Are you made to feel afraid or neglected: No Are you DNR?: No Advance Directives: Yes Advance Directives Information Provided: Yes Advance Directives on File: Yes Advance Directives Date on File: 04/27/12 Do you have thoughts of harming others: None Do you have a plan to hurt others: No Plan Recently lost weight without trying: No Eating poorly because of decreased appetite: No Nutrition Risks: No Nutritional Risk Poor oral hygiene: No Current occupational status: retired Cognitive needs: No Hearing needs: No Vision needs: No Meds Allergies Allergy/AdvReac Type Severity Reaction Status Date / Time morphine [MORPHINE] Allergy Intermediate ANXIETY,AGITATION, Verified 04/18/22 13:19 severe aggitation Home Medications Medication Instructions Recorded Confirmed Last Taken Type lisinopril 10 mg tablet 10 mg PO DAILY 11/24/19 04/19/22 04/23/22 History omeprazole 20 mg tablet,delayed 20 mg PO DAILY 11/24/19 04/19/22 Unknown History release multivitamin 1 tab PO DAILY 09/27/20 04/19/22 Unknown History omega-3 fatty acids 1,000 mg 1,000 mg PO BID 09/27/20 04/19/22 Unknown History capsule (Fish Oil Concentrate) apple cider vinegar 500 mg tablet 500 mg PO BID 09/12/21 04/19/22 Unknown History magnesium 250 mg tablet 250 mg PO BEDTIME 09/12/21 04/19/22 Unknown History ibuprofen 200 mg tablet (IBU-200) 400 mg PO BID 01/30/22 04/19/22 Unknown History rosuvastatin 20 mg tablet 20 mg PO QAM 04/11/22 04/19/22 Unknown History sertraline 100 mg tablet 100 mg PO QAM 04/11/22 04/19/22 04/23/22 History Assessment and Plan Final Anesthetic Review NPO: Yes ASA Class: III Final Preanesthetic Review: Meds/Allgs Chart Reviewed, Consent Obtained/Reviewed and Anes Risks/Benef Reviewed Patient Risk: Intermediate Procedure Risk: Intermediate Anesthetic Plan Anesthetic Plan: GA and Regional Block Disposition: Standard PACU
[2022-04-11 16:15] LABS: MRSA Nasal PCR NEGATIVE (Negative); SA Nasal PCR NEGATIVE (Negative)
[2022-04-23] VITALS (16 sets, daily range): BP systolic 131–158; BP diastolic 68–87; PULSE 70–89; RESP 14–18; TEMP 36.1–37; O2SAT 92–98; BMI 38.0
--- NOTE | ~2022-04-23 | XR_ITS ---
EXAMINATION: XR KNEE, RIGHT CLINICAL INFORMATION: Right knee total arthroplasty. COMPARISON: None TECHNIQUE: Four views of the right knee. FINDINGS: The patient is status post right knee arthroplasty showing good anatomic alignment and no evidence for hardware malfunction. There is no acute fracture. Mild intra-articular and subcutaneous air is noted. Multiple skin rachid are seen anteriorly. XR/XR knee RT 2V IMPRESSION: Postsurgical changes. No hardware abnormality. No acute fracture.
[2022-04-23 08:02] LABS: Hematocrit 40.2 % (42.0-52.0); Hemoglobin 13.6 g/dl (14.0-18.0)
[2022-04-23 08:07] LABS: COVID-19 Test Negative (Negative); IDNOW Serial# BCCEAD1C
[2022-04-23] MEDS: Albuterol Sulfate (0.083%) 2.5 MG/3 ML VIAL.NEB INHALE (08:24)
[2022-04-23] MEDS: Lactated Ringers 1,000 ML 100 ML IVCONT ×2 (08:34→14:22)
--- NOTE | 2022-04-23 09:56 | MHC.SHP ---
Pre-Procedural Eval Section A Date of Service: 04/23/22 The patient is an INPATIENT: No Changes since office visit: No Cold of Flu in the past 2 weeks, No New Medical Problems, No Changes in Medication and No Patient answered all questions The History & Physical has been completed within 30 days and I have reviewed it.: Yes Section B Chief Complaint: Unilateral primary osteoarthritis, right knee Allergies: Allergies Allergy/AdvReac Type Severity Reaction Status Date / Time morphine [MORPHINE] Allergy Intermediate ANXIETY,AGITATION, Verified 04/18/22 13:19 severe aggitation Plan I have reviewed the history and physical and performed a pertinent physical examination on my patient. No changes have occurred unless specified. Time Spent With Patient Time: Total time managing care of this patient today ____ minutes.
--- NOTE | 2022-04-23 12:23 | PM.OP ---
Brief Operative Note Date of Service: 04/23/22 Pre-op diagnosis: Right knee OA. Post-op diagnosis: same Procedure: Right TKA Implants: Raghu Triterry PS 07/17/ps/38a Surgeon: Nathan Navarrete MD Anesthesia: regional and spinal Was an Manager Administration used for this Procedure?: Yes Manager Administration: Geoffrey Patten Estimated blood loss (mL): 150 IV fluids (mL): 1,000 Pathology: other Condition: stable Disposition: PACU
--- NOTE | 2022-04-23 12:34 | W.PM.OPN ---
Operative Note Operative Note Date of Service: 04/23/22 Narrative: Date of Service: 04/23/22 Pre-op diagnosis: Right knee OA. Post-op diagnosis: same Procedure: Right TKA Implants: Raghu Triathlon PS 07/17/ps/38a Surgeon: Nathan Navarrete MD Anesthesia: regional and spinal Was an Senior Electronics Design Engineer used for this Procedure?: Yes Senior Electronics Design Engineer: Geoffrey Patten Estimated blood loss (mL): 150 IV fluids (mL): 1,000 Pathology: other Condition: stable Disposition: PACU Procedure in detail: The patient was brought to the operating room and prepped and draped in standard sterile fashion. A time-out was called to identify proper site proper procedure proper surgeon and IV antibiotics were administered. I began by making a midline incision to the retinaculum and performed a medial parapatellar arthrotomy. The patella was translated laterally and the knee was flexed up.There was tricompartmental disease and stiff. He had a 10 deg flexion contracture. I performed a small medial peel and resected the infrapatellar fat pad. Colquitt's line was then used to drill my intramedullary femoral guide and my distal femur cut of 12 mm was made in 5 degrees of valgus while protecting the soft tissues. I then measured a # 6 femur and placed my cutting guide and made my anterior posterior and chamfer cuts protecting the soft tissues at all times. I then made my box but removing the PCL. Once I was satisfied with my cuts I turned my attention to the tibia. I removed the meniscus medially and laterally and , using an external cutting guide, in line with the tibial crest and the third ray, I made my distal tibial cut in 0 deg slope of while protecting the posterior soft tissues at all times. An extension block was used to confirm appropriate amount of bony resection. I then sized a #7 tibia and once I was satisfied that there was complete tibial coverage I placed my trial and with the trial femur in place took the knee through range of motion. I was satisfied with the extension and flexion as well as the stability at 0, 30 and 90 degrees. I then turned my attention to the patella where I removed 1 cm from the undersurface of the patella and then trialed a 38a patellar button. Again the knee was taken through range of motion I was satisfied with the tracking. I then returned to the femur and drilled my femoral lug holes and prepared the tibia. A femoral bone plug was placed and the knee was irrigated copiously. I then press fit the patella, tibia and femur in standard fashion. I trialed different inserts until I selected a #10 insert. The final insert was placed and a 3 minutes iodine soak with local TXA was performed. A Werewolf cautery wand was used to maintain hemostasis over the capsule and meniscal beds, the gutters and peripatellar soft tissues. The knee was then closed with a running Quill suture, a 3 0 Vicryl and rachid on the skin. Patient was then placed in sterile dressing and brought to recovery room in stable condition there were no known complications.
[2022-04-23] MEDS: oxyCODONE HCl Immed Release 5 MG TABLET 10 MG PO ×3 (13:10→23:57)
[2022-04-23] MEDS: fentaNYL citrate/PF 100 MCG/2 ML VIAL 25 MCG IVPUSH (13:11)
[2022-04-23] MEDS: ceFAZolin Sodium/Dextrose,Iso 2 GM/50 ML PIGGYBACK IV (14:21)
--- NOTE | 2022-04-23 15:00 | PHA.MEDREC ---
Pharmacy Consult ? Medication Reconciliation Pharmacy has completed the medication reconciliation. Dronedarone 400 mg [facility]
[2022-04-23] MEDS: HYDROmorphone HCl 0.5 MG/0.5 ML SYRINGE 0.25 MG IVPUSH ×2 (15:13→20:21)
--- NOTE | 2022-04-23 15:14 | HO.PM.IMCN ---
History of Present Illness Data of Consult Service Date: 04/23/22 Requesting physician: Geoffrey Patten [facility] Reason for consult: medical management 66-year-old male with history AAA, anxiety/depression, coronary artery disease, GERD, hyperlipidemia, hypertension, VIDYA compliant with CPAP, and paroxysmal atrial fibrillation anticoagulated with Eliquis s/p cardiac ablation admitted to Orthopedic surgery for management of osteoarthritis of the right knee s/p right TKR pod 0 with consult placed to hospitalist service for medical management. He reports feeling slightly nauseous, but no abdominal pain, vomiting. Denies any shortness of breath, lightheadedness, chest pain. Reports pain is well managed. He denies any alcohol use or illicit drug use. Currently smoking 1-2 cigarettes on a daily basis and uses medicinal marijuana. Review of Systems Review of Systems: Yes all other systems are reviewed and are negative [facility] Medical History AAA (abdominal aortic aneurysm) Anemia Anxiety and depression BPH (benign prostatic hyperplasia) CAD (coronary artery disease) Diverticulosis GERD (gastroesophageal reflux disease) History of cardioversion Hx of skin cancer, basal cell Hyperlipemia Hypertension Major depression, recurrent, chronic Major depression, recurrent, chronic PAF (paroxysmal atrial fibrillation) PTSD (post-traumatic stress disorder) Skin cancer Sleep apnea Functional capacity: independent ambulation Family History Father Esophageal cancer Mother Esophageal cancer Surgical History H/O umbilical hernia repair H/O vein stripping (~06/08/21) H/O vein stripping (~06/08/21) History of cardiac radiofrequency ablation History of esophagogastroduodenoscopy (EGD) History of incision and drainage History of prostate surgery History of prostate surgery History of total left hip arthroplasty Hx of arthroscopy of left knee Hx of arthroscopy of left knee Hx of blepharoplasty Hx of blepharoplasty Hx of cardiac catheterization Hx of colonoscopy Hx of right knee surgery Hx of tonsillectomy Social History Housing: House Are you a primary child care associate to a significant other at home: No Do you presently have visiting nurse or other home services: No Patient Tobacco Use Status: Current everyday Tobacco user Smoking Start Date: 09/11/59 Tobacco use type: Cigarette Cigarettes Per Day: 2 Years Smoked: 25 Smoked in Last 30 Days: Yes e-Cigarette/Vaping Use: Never Used Patient Interested in Nicotine Replacement: No Second Hand Smoke Exposure: No Use of substances other than those prescribed or required for medical reasons: Yes Substance Use Frequency: Daily Have you been hit, kicked, punched, or otherwise hurt by someone within the past year? If so, by whom?: No Are you DNR?: No Advance Directives: Yes Advance Directives Information Provided: Yes Advance Directives on File: Yes Advance Directives Date on File: 04/27/12 Recently lost weight without trying: No Eating poorly because of decreased appetite: No Nutrition Risks: No Nutritional Risk Poor oral hygiene: No (upper full denture/missing teeth lower) Current occupational status: retired Cognitive needs: No Hearing needs: No Vision needs: No Meds Allergies Allergy/AdvReac Type Severity Reaction Status Date / Time morphine [MORPHINE] Allergy Intermediate ANXIETY,AGITATION, Verified 04/18/22 13:19 severe aggitation Active Medications: Current Medications Acetaminophen (Acetaminophen 325 Mg Tablet) 650 mg PO Q6H PRN PRN Reason: Pain, Mild (Pain Scale 1-3) Celecoxib (Celecoxib 100 Mg Capsule) 100 mg PO BID [facility]LE[facility] Docusate Sodium (Docusate Sodium 100 Mg Capsule) 100 mg PO DAILY PRN PRN Reason: Constipation Dronedarone (Dronedarone Hcl 400 Mg Tablet) 400 mg PO BID [facility] Hydromorphone HCl (Hydromorphone Hcl 0.5 Mg/0.5 Ml Syringe) 0.25 mg IVPUSH Q4H PRN; Protocol PRN Reason: Pain, Severe (Pain Scale 7-10) Last Admin: 04/23/22 15:13 Dose: 0.25 mg Lactated Ringer's (Lr) 1,000 mls @ 100 mls/hr IVCONT .Q10H ALEXY Stop: 04/24/22 13:48 Last Admin: 04/23/22 14:22 Dose: 100 mls/hr Magnesium Oxide (Magnesium Oxide 400 Mg Tablet) 400 mg PO BEDTIME ALEXY Multivitamins/Vitamin C (Multivitamin Tablet) 1 tab PO DAILY ALEXY Omeprazole (Omeprazole 20 Mg Capsule.) 20 mg PO DAILY@0630 [facility] Oxycodone HCl (Oxycodone Hcl Immed Release 5 Mg Tablet) 10 mg PO Q4H PRN PRN Reason: Pain, Moderate (Pain Scale 4-6 Last Admin: 04/23/22 13:10 Dose: 10 mg Oxycodone HCl (Oxycodone Hcl Er 10 Mg Tab.Er.12h) 10 mg PO BID [facility] Sertraline HCl (Sertraline Hcl 100 Mg Tablet) 100 mg PO DAILY [facility] Sodium Chloride (0.9 % Sodium Chloride Flush 3 Ml Syringe) 3 ml IVFLUSH QSHIFT [facility] Last Admin: 04/23/22 15:02 Dose: Not Given Home Medications Medication Instructions Recorded Confirmed Last Taken Type lisinopril 10 mg tablet 10 mg PO DAILY 11/24/19 04/19/22 04/23/22 History omeprazole 20 mg tablet,delayed 20 mg PO DAILY 11/24/19 04/19/22 Unknown History release multivitamin 1 tab PO DAILY 09/27/20 04/19/22 Unknown History omega-3 fatty acids 1,000 mg 1,000 mg PO BID 09/27/20 04/19/22 Unknown History capsule (Fish Oil Concentrate) apple cider vinegar 500 mg tablet 500 mg PO BID 09/12/21 04/19/22 Unknown History magnesium 250 mg tablet 250 mg PO BEDTIME 09/12/21 04/19/22 Unknown History ibuprofen 200 mg tablet (IBU-200) 400 mg PO BID 01/30/22 04/19/22 Unknown History rosuvastatin 20 mg tablet 20 mg PO QAM 04/11/22 04/19/22 Unknown History sertraline 100 mg tablet 100 mg PO QAM 04/11/22 04/19/22 04/23/22 History Physical Exam Vital Signs and Narrative: Vital Signs: Last Vital Signs Temp 97 F 04/23/22 15:00 Pulse 85 04/23/22 15:00 Resp 18 04/23/22 15:00 BP 158/80 H 04/23/22 15:00 Pulse Ox 96 04/23/22 15:00 O2 Del Method 04/23/22 15:00 O2 Flow Rate 3 04/23/22 13:49 BMI result Body Mass Index 38.0 Constitutional - Awake and Alert, No apparent distress Eyes - PERRLA, EOMI Cardiovascular - S1S2, RRR, No edema Respiratory - Normal lung expansion, Normal respiratory effort, No respiratory distress, CTA bilaterally Gastrointestinal - NT / ND; +BS; No rebound or guarding Extremities - no calf tenderness bilaterally, no swelling Musculoskeletal - post-op bandage in place right knee Skin - Warm/Dry Neurological - Alert & oriented x3 Psychological - Appropriate affect Results Labs 04/23/22 07:49 Labs: Laboratory Results - last 24 hr 04/23/22 07:44 COVID-19 ([facility]) Negative COVID-19 Clin Com See Note Imaging Radiologist's Impressions: Impressions Knee X-Ray 04/23/22 13:11 IMPRESSION: Postsurgical changes. No hardware abnormality. No acute fracture. Assessment and Plan (1) Routine medical exam: Status: Acute Plan 66-year-old male with history thoracic aortic aneurysm, anxiety/depression, coronary artery disease, GERD, hyperlipidemia, hypertension, VIDYA compliant with CPAP, and paroxysmal atrial fibrillation anticoagulated with Eliquis s/p cardiac ablation admitted to Orthopedic surgery for management of osteoarthritis of the right knee s/p right TKR pod 0 with consult placed to hospitalist service for medical management. # Right knee osteoarthritis s/p right TKR -pod 0 -plan per orthopedic surgery # CAD/HLD -Follows outpt with Dr. Person -No anginal chest pain - continue home meds # paroxysmal atrial fibrillation s/p cardiac ablation -resume Eliquis per Orthopedic surgery for anticoagulation and Multaq # hypertension-reasonably controlled -resume lisinopril a.m. # VIDYA -continue CPAP at bedtime # GERD -continue PPI #mood disorder -continue home meds Thank you for allowing me to participate in this consult. Signing off at this time. Please do not hesitate to call for further questions. Time Spent With Patient Time: Total time managing care of this patient today ____ minutes.
[2022-04-23] MEDS: Dronedarone HCl 400 MG TABLET PO (19:23)
[2022-04-23] MEDS: Celecoxib 100 MG CAPSULE PO (19:23)
[2022-04-23] MEDS: Magnesium Oxide 400 MG TABLET PO (19:23)
[2022-04-23] MEDS: oxyCODONE HCl ER 10 MG TAB.ER.12H PO (19:24)
[2022-04-24] MEDS: ondansetron HCL 4 MG/2 ML VIAL IVPUSH (00:43)
[2022-04-24] MEDS: Lactated Ringers 1,000 ML 100 ML IVCONT ×2 (00:56→10:31)
[2022-04-24 03:22] VITALS: BP 150/73; PULSE 79; RESP 18; TEMP 36.7; O2SAT 93
[2022-04-24] MEDS: HYDROmorphone HCl 0.5 MG/0.5 ML SYRINGE 0.25 MG IVPUSH ×2 (06:10→10:38)
[2022-04-24] MEDS: Omeprazole 20 MG CAPSULE.DR PO (06:10)
[2022-04-24 07:12] LABS: MANUAL DIFF FLAG NO
[2022-04-24 07:14] LABS: Basophils Percent Auto 0.2 % (0-2); Hemoglobin 11.8 g/dl (14.0-18.0); Imm Gran Abs Auto 0.08 X10*3/uL (0.00-0.03); Imm Gran Pct Auto 0.6 % (0.0-0.4); Lymphocytes Absolute Auto 0.9 X10*3/uL (1.2-4.9); Lymphocytes Percent Auto 7.2 % (20-40); Mean Corpuscular HGB Conc 33.7 g/dl (31.0-36.0); Mean Corpuscular Hemoglobin 30.9 pg (27.0-33.0); Mean Corpuscular Volume 91.6 fL (80.0-98.0); Mean Platelet Volume 10.5 fL (9.4-12.4); Monocytes Absolute Auto 1.4 X10*3/uL (0.1-1.2); Monocytes Percent Auto 11.2 % (2-11); Neutrophils Percent Auto 80.8 % (45-73); Platelet Count 221 X10*3/uL (160-400); Red Blood Count 3.82 X10*6/uL (4.60-5.80); Red Cell Distribution Width 13.2 % (11.0-16.0); White Blood Count 12.4 X10*3/uL (4.8-10.8)
[2022-04-24 07:23] VITALS: BP 149/72; PULSE 80; RESP 20; TEMP 37.2; O2SAT 96
--- NOTE | 2022-04-24 07:26 | PM.PNORT ---
Subjective Subjective Date of Service: 04/24/22 Interval history: POD1 s/p RTKA. Patient is resting in bed. Reports nausea with some vomiting No overnight events. No additional complaints. Physical Exam Vital Signs: Vital Signs: Last Vital Signs Temp 99.0 F 04/24/22 07:23 Pulse 80 04/24/22 07:23 Resp 20 04/24/22 07:23 BP 149/72 H 04/24/22 07:23 Pulse Ox 96 04/24/22 07:23 O2 Del Method 04/24/22 07:23 O2 Flow Rate 3 04/23/22 13:49 BMI result Body Mass Index 38.0 Const: General: cooperative, healthy appearing and no acute distress Resp: Effort & Inspection: normal respiratory effort and able to speak in complete sentences Cardio: Rate: regular rate Peripheral pulses: Peripheral pulses 2+ throughout GI: Palpation (GI): Soft to palpation Skin: Lesions: no lesions Rashes: no rashes Extrem: Other: Right knee Aquacel is c/d/i. Able to dorsiflex and plantarflex. NVI. Procedures Date of Service Date of Service: 04/24/22 Progress Note: A&P Assessment and plan (1) Status post total knee replacement, right: Status: Acute Plan Continue pain mgmnt Begin Lovenox for dvt ppx begin PT for RTKA Dispo planning-PT, pain mgmnt Time Spent With Patient Time: Total time managing care of this patient today ____ minutes. Quality Stroke Does the patient have a stroke diagnosis?: No VTE Prior VTE?: No VTE Risk Level:: Medical - moderate - high VTE Device Contraindication: N/A - Device Ordered VTE Drug Contraindication: N/A - Med Ordered
[2022-04-24 07:31] LABS: Anion Gap 12 (12-20); Blood Urea Nitrogen 13 mg/dL (9-16); Calcium 8.5 mg/dL (8.4-10.2); Carbon Dioxide 29 mmol/L (22-29); Chloride 102 mmol/L (96-108); Estimated Glomerular Filt Rate > 60; Glucose Fasting 128 mg/dL (60-99); Potassium 4.2 mmol/L (3.3-5.1); Sodium 139 mmol/L (135-145)
[2022-04-24] MEDS: Celecoxib 100 MG CAPSULE PO ×2 (08:22→20:43)
[2022-04-24] MEDS: oxyCODONE HCl ER 10 MG TAB.ER.12H PO ×2 (08:22→20:42)
[2022-04-24] MEDS: Dronedarone HCl 400 MG TABLET PO ×2 (08:22→20:43)
[2022-04-24] MEDS: Multivitamin TABLET 1 TAB PO (08:22)
[2022-04-24] MEDS: Sertraline HCL 100 MG TABLET PO (08:22)
--- NOTE | 2022-04-24 09:13 | MHC.CM.PN ---
pt lives with will have own transport home will be going [facility] pt as receommended by physical therapy is sarai vax x 2
[2022-04-24] MEDS: Promethazine HCL 25 MG TABLET PO (10:30)
[2022-04-24] MEDS: Enoxaparin Sodium 40 MG/0.4 ML SYRINGE SUBCUT (10:30)
--- NOTE | 2022-04-24 11:34 | HO.POSTANES ---
Post Anesthesia Evaluation Post Anesthesia Evaluation Vital Signs: Vital Signs Temp Pulse Resp BP Pulse Ox O2 Del Method 04/24/22 07:23 99.0 F 80 20 149/72 H 96 Room Air 04/24/22 03:22 98.1 F 79 18 150/73 H 93 Room Air Anesthesia: Spinal and Nerve Block Mental Status: Awake Pain Control: Satisfactory (difficulty controlling pain) Nausea/Vomiting: Mild Hydration: Adequate Anesthesia-Related Issues: No Anes. Related Issues
[2022-04-24] MEDS: oxyCODONE HCl Immed Release 5 MG TABLET 10 MG PO ×2 (12:08→17:18)
[2022-04-24 16:00] VITALS: BP 168/84; PULSE 93; RESP 17; TEMP 36.4; O2SAT 96
[2022-04-24] MEDS: Acetaminophen 325 MG TABLET 650 MG PO (16:35)
[2022-04-24 19:57] VITALS: BP 174/80; PULSE 85; RESP 18; TEMP 36.4; O2SAT 99
[2022-04-24] MEDS: 0.9 % Sodium Chloride Flush 3 ML SYRINGE IVFLUSH (20:42)
[2022-04-24] MEDS: Magnesium Oxide 400 MG TABLET PO (20:43)
[2022-04-25 03:44] VITALS: BP 133/74; PULSE 84; RESP 18; TEMP 36.6; O2SAT 94
[2022-04-25] MEDS: Omeprazole 20 MG CAPSULE.DR PO (05:49)
[2022-04-25 06:38] LABS: Basophils Percent Auto 0.2 % (0-2); Eosinophils Percent Auto 0.1 % (0-4); Hemoglobin 11.2 g/dl (14.0-18.0); Imm Gran Abs Auto 0.06 X10*3/uL (0.00-0.03); Imm Gran Pct Auto 0.5 % (0.0-0.4); Lymphocytes Absolute Auto 1.1 X10*3/uL (1.2-4.9); MANUAL DIFF FLAG SCAN; Mean Corpuscular HGB Conc 33.9 g/dl (31.0-36.0); Mean Corpuscular Hemoglobin 31.4 pg (27.0-33.0); Mean Corpuscular Volume 92.4 fL (80.0-98.0); Mean Platelet Volume 10.2 fL (9.4-12.4); Monocytes Absolute Auto 1.6 X10*3/uL (0.1-1.2); Monocytes Percent Auto 12.6 % (2-11); Neutrophils Absolute Auto 9.9 x10*3/uL (2.0-8.3); Neutrophils Percent Auto 77.6 % (45-73); Platelet Count 194 X10*3/uL (160-400); Red Blood Count 3.57 X10*6/uL (4.60-5.80); Red Cell Distribution Width 13.1 % (11.0-16.0); SCAN SMEAR FLAG 1; White Blood Count 12.7 X10*3/uL (4.8-10.8)
[2022-04-25 07:00] LABS: SLIDE REVIEW VERIFIED
[2022-04-25 07:01] VITALS: BP 150/84; PULSE 92; RESP 18; TEMP 36.1; O2SAT 95
[2022-04-25 07:03] LABS: Anion Gap 13 (12-20); Blood Urea Nitrogen 12 mg/dL (9-16); Calcium 8.7 mg/dL (8.4-10.2); Carbon Dioxide 30 mmol/L (22-29); Chloride 100 mmol/L (96-108); Creatinine Clr Calc Pharmacy 127.1; Estimated Glomerular Filt Rate > 60; Glucose Fasting 129 mg/dL (60-99); Potassium 4.6 mmol/L (3.3-5.1); Sodium 138 mmol/L (135-145)
[2022-04-25] MEDS: Celecoxib 100 MG CAPSULE PO ×2 (08:25→20:36)
[2022-04-25] MEDS: Dronedarone HCl 400 MG TABLET PO ×2 (08:25→20:35)
[2022-04-25] MEDS: oxyCODONE HCl Immed Release 5 MG TABLET 10 MG PO ×3 (08:25→17:28)
[2022-04-25] MEDS: oxyCODONE HCl ER 10 MG TAB.ER.12H PO ×2 (08:25→20:35)
[2022-04-25] MEDS: 0.9 % Sodium Chloride Flush 3 ML SYRINGE IVFLUSH ×3 (08:25→20:37)
[2022-04-25] MEDS: Multivitamin TABLET 1 TAB PO (08:25)
[2022-04-25] MEDS: Sertraline HCL 100 MG TABLET PO (08:36)
--- NOTE | 2022-04-25 09:06 | PM.PNORT ---
Subjective Subjective Date of Service: 04/25/22 Interval history: POD2 s/p RTKA. Patient continues to complain of nausea and vomiting. Meds adjusted but nausea and vomiting persist. Pain is well managed. No overnight events. No additional complaints. Physical Exam Vital Signs: Vital Signs: Last Vital Signs Temp 97 F 04/25/22 07:01 Pulse 92 04/25/22 07:01 Resp 18 04/25/22 07:01 BP 150/84 H 04/25/22 07:01 Pulse Ox 95 04/25/22 07:01 O2 Del Method 04/25/22 07:01 O2 Flow Rate 3 04/23/22 13:49 BMI result Body Mass Index 38.0 Const: General: cooperative, healthy appearing and no acute distress Resp: Effort & Inspection: normal respiratory effort and able to speak in complete sentences Cardio: Rate: regular rate Peripheral pulses: Peripheral pulses 2+ throughout GI: Palpation (GI): Soft to palpation Skin: Lesions: no lesions Rashes: no rashes Extrem: Other: Right knee Aquacel is c/d/i. Able to dorsiflex and plantarflex. NVI. Procedures Date of Service Date of Service: 04/25/22 Progress Note: A&P Assessment and plan (1) Status post total knee replacement, right: Status: Acute Plan Continue pain mgmnt Continue Lovenox for dvt ppx Continue PT for RTKA Dispo planning-PT, pain mgmnt, N&V management Time Spent With Patient Time: Total time managing care of this patient today ____ minutes. Quality Stroke Does the patient have a stroke diagnosis?: No VTE Prior VTE?: No VTE Risk Level:: Medical - moderate - high VTE Device Contraindication: N/A - Device Ordered VTE Drug Contraindication: N/A - Med Ordered
[2022-04-25] MEDS: Enoxaparin Sodium 40 MG/0.4 ML SYRINGE SUBCUT (11:57)
[2022-04-25 14:53] VITALS: BP 159/80; PULSE 92; RESP 19; TEMP 36.4; O2SAT 94
[2022-04-25 15:03] VITALS: PULSE 135; O2SAT 97
[2022-04-25] MEDS: Magnesium Oxide 400 MG TABLET PO (20:36)
[2022-04-25 20:39] VITALS: PULSE 83
--- NOTE | 2022-04-25 20:46 | PC.RT ---
Pt refusing CPAP at this time; will call if needed
[2022-04-26] MEDS: oxyCODONE HCl Immed Release 5 MG TABLET 10 MG PO ×2 (01:54→09:10)
[2022-04-26 03:45] VITALS: BP 127/63; PULSE 76; RESP 18; TEMP 36.7; O2SAT 95
[2022-04-26] MEDS: Omeprazole 20 MG CAPSULE.DR PO (06:06)
[2022-04-26 06:28] LABS: MANUAL DIFF FLAG NO
[2022-04-26 06:36] LABS: Basophils Percent Auto 0.4 % (0-2); Eosinophils Absolute Auto 0.1 X10*3/uL (0.0-0.4); Eosinophils Percent Auto 0.9 % (0-4); Hematocrit 30.3 % (42.0-52.0); Hemoglobin 10.5 g/dl (14.0-18.0); Imm Gran Abs Auto 0.03 X10*3/uL (0.00-0.03); Imm Gran Pct Auto 0.3 % (0.0-0.4); Lymphocytes Absolute Auto 1.4 X10*3/uL (1.2-4.9); Lymphocytes Percent Auto 15.9 % (20-40); Mean Corpuscular HGB Conc 34.7 g/dl (31.0-36.0); Mean Corpuscular Hemoglobin 31.7 pg (27.0-33.0); Mean Corpuscular Volume 91.5 fL (80.0-98.0); Mean Platelet Volume 10.3 fL (9.4-12.4); Monocytes Absolute Auto 1.2 X10*3/uL (0.1-1.2); Monocytes Percent Auto 13.2 % (2-11); Neutrophils Absolute Auto 6.3 x10*3/uL (2.0-8.3); Neutrophils Percent Auto 69.3 % (45-73); Platelet Count 199 X10*3/uL (160-400); Red Blood Count 3.31 X10*6/uL (4.60-5.80); Red Cell Distribution Width 12.8 % (11.0-16.0); White Blood Count 9.1 X10*3/uL (4.8-10.8)
[2022-04-26 06:53] VITALS: BP 155/81; PULSE 80; RESP 18; TEMP 36.1; O2SAT 95
[2022-04-26 06:59] LABS: Blood Urea Nitrogen 10 mg/dL (9-16); Calcium 8.4 mg/dL (8.4-10.2); Creatinine Clr Calc Pharmacy 133.7; Estimated Glomerular Filt Rate > 60; Glucose Fasting 112 mg/dL (60-99)
[2022-04-26 07:12] LABS: Anion Gap 13 (12-20); Carbon Dioxide 30 mmol/L (22-29); Chloride 95 mmol/L (96-108); Potassium 3.5 mmol/L (3.3-5.1); Sodium 134 mmol/L (135-145)
--- NOTE | 2022-04-26 08:08 | PM.DS ---
DS: Providers Provider Date of Service: 04/26/22 Primary care physician: Vijay Jaramillo CONSULTING SALES EXECUTIVE- Consults: 04/23/22 13:49 Consult to Hospitalist Routine Consulting Provider: Hospitalist Reason For Exam: h/o afib on eliquis DS: Diagnosis Discharge Diagnosis (1) Status post total knee replacement, right: Status: Acute DS: Summary Hospital Course Hospital Course: The patient underwent a successful right total knee arthroplasty on 04/23/22, was transferred to PACU and then to the floor to recover. During their stay, their vitals were stable, afebrile at 97.0. Labs were unremarkable, H/H 10.5/30.3 . POD 1 he was started on Lovenox for DVT ppx, they also received Physical Therapy services twice a day. Physical therapy should include gait training, ROM to tolerance and quad strength. He is WBAT. Prior to discharge, his dressing was changed, incision clean dry and intact, new Aquacel dressing applied. The Aquacel dressing shoulder remain intact and dry at all times. Any concerns with the dressing, please contact orthopedic office. No showering. The plan is to be discharged home with vna services. Time Spent with Patient Time attestation: Total time managing care of this patient today ____ minutes. Discharge coordination time: Less than 30 minutes Quality: Safe Use of Opioids Does Pt have an Active Cancer Diagnosis on the Problem List?: No Quality: Stroke Does the patient have a stroke diagnosis?: No Physical Exam Vital Signs: Vital Signs: Last Vital Signs Temp 97 F 04/26/22 06:53 Pulse 80 04/26/22 06:53 Resp 18 04/26/22 06:53 BP 155/81 H 04/26/22 06:53 Pulse Ox 95 04/26/22 06:53 O2 Del Method 04/26/22 06:53 O2 Flow Rate 3 04/23/22 13:49 BMI result Body Mass Index 38.0 Const: General: cooperative, healthy appearing and no acute distress Resp: Effort & Inspection: normal respiratory effort and able to speak in complete sentences Cardio: Rate: regular rate Peripheral pulses: Peripheral pulses 2+ throughout GI: Palpation (GI): Soft to palpation Skin: General skin exam: no rashes or lesions noted Extrem: Other: incision clean dry and intact. Kelly intact. No erythema or joint effusion. Calf supple nontender. Neurovascularly intact. DS: Data Data Completed and Pending Pending studies at discharge: Pending at discharge 04/23/22 12:06 Surgical [PTH] Routine Labs on day of discharge: Laboratory Results - last 24 hr 04/26/22 04/26/22 05:47 05:47 WBC 9.1 RBC 3.31 L Hgb 10.5 L Hct 30.3 L MCV 91.5 MCH 31.7 MCHC 34.7 RDW 12.8 Plt Count 199 MPV 10.3 Immature Gran % (Auto) 0.3 Neut % (Auto) 69.3 Lymph % (Auto) 15.9 L [place] % (Auto) 13.2 H Eos % (Auto) 0.9 Baso % (Auto) 0.4 Lymph # (Auto) 1.4 [place] # (Auto) 1.2 Eos # (Auto) 0.1 Baso # (Auto) 0.0 Abs Immat Gran (auto) 0.03 Absolute Neuts (auto) 6.3 Absolute Nucleated RBC 0.000 Nucleated RBC % (auto) 0.0 Sodium 134 L Potassium 3.5 D Chloride 95 L Carbon Dioxide 30 H Anion Gap 13 BUN 10 Creatinine 0.77 Estim Creat Clear Calc 133.7 Estimated GFR > 60 Fasting Glucose 112 H Calcium 8.4 Discharge Plan Discharge Patient Disposition: Home Health Service Referrals: Geoffrey Patten PA-C [Physician Record Center Specialist] - 05/10/22 12:30 pm Discharge Medications: New acetaminophen 325 mg Tablet 650 mg PO Q6H PRN (Reason: Pain, Mild (Pain Scale 1-3)) 30 Days Qty: 240 0RF celecoxib 200 mg capsule 200 mg PO BID Qty: 60 0RF oxycodone 10 mg tablet 10 mg PO Q6H PRN (Reason: Pain, Moderate (Pain Scale 4-6) 7 Days Qty: 28 0RF Rx Instructions: Partial Fill upon patient request. docusate sodium 100 mg Capsule 100 mg PO DAILY PRN (Reason: Constipation) 14 Days Qty: 28 0RF Continued (DME) CPAP See Rx Instructions .Route .MEDSUPPLY Qty: 1 0RF Rx Instructions: As directed, for sleep apnea Eliquis 5 mg tablet 5 mg PO BID 90 Days Qty: 180 3RF (DME) james Talavera See Rx Instructions .MEDSUPPLY Qty: 1 0RF Rx Instructions: Folding Front wheeled walker lisinopril 10 mg Tablet 10 mg PO DAILY omeprazole 20 mg Tablet,Delayed Release (Dr/Ec) 20 mg PO DAILY sertraline 100 mg tablet 100 mg PO QAM rosuvastatin 20 mg tablet 20 mg PO QAM multivitamin Tablet 1 tab PO DAILY magnesium 250 mg tablet 250 mg PO BEDTIME apple cider vinegar 500 mg tablet 500 mg PO BID Multaq 400 mg tablet 400 mg PO BID 90 Days Qty: 180 3RF Held omega-3 fatty acids [Fish Oil Concentrate] 1,000 mg capsule 1,000 mg PO BID Hold Instructions: Resume on 05/27/22. ibuprofen [IBU-200] 200 mg tablet 400 mg PO BID Hold Instructions: Resume on 05/27/22. Discharge Orders: Discharge Order (Routine); Ordered 04/26/22 Ordered By: Geoffrey Patten Diet: Advance to usual diet Activity on Discharge: Use cane or walker Activity Restrictions/Additional Instructions: Physical Therapy for ROM 0-120, quad strength, gait training. Use walker for ambulation Limit stair climbing, No shower, No tub bath, No driving Continue anticoagulant Keep Aquacel dressing clean, dry and intact. Follow up with orthopedics in 2 weeks
--- NOTE | 2022-04-26 08:15 | MHC.CM.PN ---
PT WILL DC HOME TODAY WITH [facility] PT WILL ARRANGE TRANSPORT
[2022-04-26 09:02] VITALS: BP 155/81; PULSE 80; O2SAT 95
[2022-04-26] MEDS: Celecoxib 100 MG CAPSULE PO (09:09)
[2022-04-26] MEDS: Dronedarone HCl 400 MG TABLET PO (09:09)
[2022-04-26] MEDS: Multivitamin TABLET 1 TAB PO (09:09)
[2022-04-26] MEDS: oxyCODONE HCl ER 10 MG TAB.ER.12H PO (09:10)
[2022-04-26] MEDS: Sertraline HCL 100 MG TABLET PO (09:10)
[2022-04-26] MEDS: Apixaban 5 MG TABLET PO (09:10)
== END 2022-04-26 11:20 | disposition home health service (06) ==
LOC: HO.SSS 07:32 → HO.S3 12:43
PROVIDERS: Physician Assistant; PCP Nurse Practitioner Family; Visit Provider Orthopaedic Surgery
PROC: (CPT 27447; principal; 2022-04-23 09:40)
DX: M17.11 Unilateral primary osteoarthritis, right knee (principal); M25.561 Pain in right knee; R26.2 Difficulty in walking, not elsewhere classified; I71.40 Abdominal aortic aneurysm, without rupture, unspecified; D64.9 Anemia, unspecified; I25.10 Atherosclerotic heart disease of native coronary artery without angina pectoris; I10 Essential (primary) hypertension; E78.5 Hyperlipidemia, unspecified; I48.0 Paroxysmal atrial fibrillation; Z79.01 Long term (current) use of anticoagulants; Z79.899 Other long term (current) drug therapy; Z88.8 Allergy status to other drugs, medicaments and biological substances; Z96.642 Presence of left artificial hip joint; Z98.890 Other specified postprocedural states; F17.210 Nicotine dependence, cigarettes, uncomplicated; Z20.822 Contact with and (suspected) exposure to COVID-19
CPT/HCPCS: 27447; 36415; 73560; 80048; 85014; 85018; 85025; 86850; 86900; 86901; 87635; 87640; 87641; 88305; 88311; 94640; 97110; 97116; 97161; C1776; J0131; J0690; J1170; J1650; J2250; J2405; J2550; J2795; J3010

== ENCOUNTER → 2022-05-09 08:48 | Outpatient (BNVA) | payer MEDICARE, SELFPAY | PROVIDERS: PCP Nurse Practitioner Family; Visit Provider Physician Assistant | DX: Z47.1 Aftercare following joint replacement surgery (principal); Z96.651 Presence of right artificial knee joint | CPT/HCPCS: 99212 ==

== ENCOUNTER → 2022-06-05 08:01 | Outpatient (BNVA) | payer MEDICARE, SELFPAY | PROVIDERS: PCP Nurse Practitioner Family; Visit Provider Physician Assistant | DX: Z47.1 Aftercare following joint replacement surgery (principal); Z96.651 Presence of right artificial knee joint | CPT/HCPCS: 99212 ==

== ENCOUNTER 2022-06-14 08:00 | Outpatient (RCR) | payer MEDICARE, SELFPAY ==
--- NOTE | 2022-05-15 09:52 | MHC.PT.EP ---
[facility] [place] [facility] [place] [facility] [place] [facility] [address] [phone] F: [phone] F: [phone] F: [phone] F: [phone] Physical Therapy Plan of Care Date of Evaluation: Date of Surgery: 04/23/22 Diagnosis: TKA Assessment: Patient is a 66 year old R handed male who presents with s/s consistent with R TKA. He is retired but does desire to stay active and busy. Patient past medical history includes YUNIER, AAA, PTSD, and AFib. Current impairments include pain, posture, ROM, strength, activity tolerance and functional mobility. Functional limitations include decreased ability to walk, stand, negotiate stairs, perform tasks around the house and stand for longer periods of time. Patient is motivated with good rehab potential. Skilled PT will address impairments and functional limitations in order to achieve goals. Frequency and Duration: The patient will be seen 2x/week for 5 weeks Short Term Goals: I with HEP - 2 week AAROM flexion to 120, ext to 0 - 3 weeks Able to amb symmetrically with no AD - 3 weeks Skilled Nursing Goals: No swelling - 5 weeks AROM flexion to 120 - 5 weeks Strength 4+/5grossly - 5 weeks LEFS 60/80 - 5 weeks Treatment Plan: Modalities to reduce pain, spasms and effusion. Manual therapy to restore motion and function. Therapeutic exercise to improve strength and flexibility. Neuromuscular re-education for posture and balance. Therapeutic activities to return to functional activities of daily living. Electronically signed by: Adán Faust, PT Please sign and return to therapist. Thank you for your referral.
--- NOTE | 2022-07-23 08:07 | MHC.PT.DC ---
[facility] [place] [facility] [place] [facility] [place] [facility] [address] Aletha Burrell [address] [phone] F: [phone] F: [phone] F: [phone] F: [phone] Physical Therapy Discharge Report Diagnosis: TKA Date of Surgery: 04/23/22 Date of Evaluation: 05/15/22 Date of Discharge: 07/03/22 Treatments to Date: 9 Cancellations to Date: No Shows to Date: Discharge Status: Improved Function Independent with HEP Discharge Summary: 06/14/22: I with HEP. AROM goals met. Symmetrical gait. Min swelling. Strength 4+/5 grossly. LEFS 74/80. Progressed towards or met all goals. Pt is appropriate to d/c to HEP at this time. 06/11/22: pt with good response to PT lately. 126 flexion. we will plan to d/c to HEP next visit. 06/07/22: pt progressing well with skilled PT. we will likely be able to d/c to HEP next week as pt is happy with progress and I with program. 06/04/22: pt progressing well with ROM, back to status prior to muscle strain. we will continue to progress as tolerated with strength, balance, ROM and functional activities while managing swelling. 05/31/22: still with more swelling than last week at this time. we resumed shuttle but not much more as we educated to continue icing maybe more than he has. 05/29/22: pt was performing standing HS curls without resistance at home and tried to give it a little extra and felt a pop in his posterior leg. he has been sore and with more swelling since. we held progression and scaled back a bit today to manage and we will attempt to resume prior program NV. 05/23/22: pt ROM progressing well. stairs with good mechanics today. limited with balance still. we will continue to progress as tolerated. 05/21/22: progressed with strength and stretching. no adverse reactions. Patient is a 66 year old R handed male who presents with s/s consistent with R TKA. He is retired but does desire to stay active and busy. Patient past medical history includes YUNIER, AAA, PTSD, and AFib. Current impairments include pain, posture, ROM, strength, activity tolerance and functional mobility. Functional limitations include decreased ability to walk, stand, negotiate stairs, perform tasks around the house and stand for longer periods of time. Patient is motivated with good rehab potential. Skilled PT will address impairments and functional limitations in order to achieve goals. Electronically signed by: Adán Faust, PT Please sign and return to therapist. Thank you for your referral.
== END 2022-07-23 08:08 | disposition home or self-care (01) ==
LOC: HO.PTCHIC 08:00
PROVIDERS: PCP Nurse Practitioner Family; Visit Provider Physician Assistant
DX: M17.11 Unilateral primary osteoarthritis, right knee (principal)
CPT/HCPCS: 97110; 97112; 97163

== ENCOUNTER 2022-06-20 06:01 | Outpatient (REF) | payer MEDICARE, SELFPAY ==
[2022-06-20 11:23] LABS: MANUAL DIFF FLAG NO
[2022-06-20 11:31] LABS: Appearance Urine Turbid; Color Urine Yellow; Glucose Urine UA Negative (Negative); Leukocyte Esterase Urine Trace (Negative); Nitrite Urine Negative (Negative); PH 5.5 (5.0-9.0); UMIC TRIGGER UACC YES; Urine Blood Negative (Negative); Urine Ketones Negative (Negative); Urine Protein Negative (Neg-Trace)
[2022-06-20 11:39] LABS: Bacteria Urine None Seen (None Seen); Hyaline Casts Urine 0-2 /LPF (0-2); RBC Urine 0-2 /HPF (0-2); Squamous Epithelial Cell Urine 0-2 /HPF (0-2); WBC Urine 0-5 /HPF (0-5)
[2022-06-20 11:41] LABS: Basophils Absolute Auto 0.1 X10*3/uL (0.0-0.2); Basophils Percent Auto 1.2 % (0-2); Eosinophils Absolute Auto 0.2 X10*3/uL (0.0-0.4); Eosinophils Percent Auto 3.1 % (0-4); Hematocrit 39.9 % (42.0-52.0); Hemoglobin 13.3 g/dl (14.0-18.0); Imm Gran Abs Auto 0.02 X10*3/uL (0.00-0.03); Imm Gran Pct Auto 0.3 % (0.0-0.4); Lymphocytes Absolute Auto 1.5 X10*3/uL (1.2-4.9); Lymphocytes Percent Auto 24.8 % (20-40); Mean Corpuscular HGB Conc 33.3 g/dl (31.0-36.0); Mean Corpuscular Hemoglobin 30.4 pg (27.0-33.0); Mean Corpuscular Volume 91.1 fL (80.0-98.0); Mean Platelet Volume 10.1 fL (9.4-12.4); Monocytes Absolute Auto 0.7 X10*3/uL (0.1-1.2); Neutrophils Absolute Auto 3.6 x10*3/uL (2.0-8.3); Neutrophils Percent Auto 58.6 % (45-73); Platelet Count 248 X10*3/uL (160-400); Red Blood Count 4.38 X10*6/uL (4.60-5.80); Red Cell Distribution Width 13.1 % (11.0-16.0); Retic HGB Equivalent 35.8 pg (30.0-35.0); Reticulocyte Percent 1.9 % (0.5-1.8); Reticulocytes Absolute 0.083 X10*6/uL (0.026-0.095); White Blood Count 6.1 X10*3/uL (4.8-10.8)
[2022-06-20 12:27] LABS: TSH reflex Free T4 1.41 uIU/mL (0.32-4.0)
[2022-06-20 12:49] LABS: Alanine Aminotransferase 21 U/L (0-40); Albumin Level 4.3 g/dL (3.5-5.0); Alkaline Phosphatase 93 U/L (39-117); Anion Gap 14 (12-20); Aspartate Amino Transferase 20 U/L (5-37); Bilirubin Total 0.5 mg/dL (0.0-1.0); Blood Urea Nitrogen 15 mg/dL (9-16); Calcium 9.4 mg/dL (8.4-10.2); Carbon Dioxide 28 mmol/L (22-29); Chloride 102 mmol/L (96-108); Cholesterol 139 mg/dL; Estimated Glomerular Filt Rate > 60; Glucose Fasting 96 mg/dL (60-99); HDL Cholesterol 53 mg/dL; LDL Cholesterol Calculated 69 mg/dl; Potassium 4.4 mmol/L (3.3-5.1); Sodium 140 mmol/L (135-145); Total Protein 7.1 g/dL (6.5-8.0); Triglycerides 89 mg/dL
== END 2022-06-20 06:02 | disposition home or self-care (01) ==
LOC: HO.HMGCLDS 06:01
PROVIDERS: PCP Nurse Practitioner Family; Visit Provider Nurse Practitioner Family
DX: F32.9 Major depressive disorder, single episode, unspecified (principal); Z96.651 Presence of right artificial knee joint; E78.5 Hyperlipidemia, unspecified
CPT/HCPCS: 36415; 80053; 80061; 81001; 84443; 85025; 85045

== ENCOUNTER 2022-07-15 08:31 | Outpatient (REF) | payer MEDICARE, SELFPAY ==
--- NOTE | ~2022-07-15 | XR_ITS ---
EXAMINATION: XR KNEE AP STANDING VIEW, BILATERAL XR KNEE, RIGHT CLINICAL INFORMATION: Pain. COMPARISON: 04/23/2022 and 01/23/2022. TECHNIQUE: AP standing view of both knees and lateral and sunrise views of the right knee. FINDINGS: The patient is status post right total knee arthroplasty with good appearance of prosthetic components. No acute fracture or dislocation is seen. There appears to be a small suprapatellar effusion. AP standing view of the left knee demonstrates significant narrowing of the medial joint space compartment with some mild marginal spurring. XR/XR knee RT 2V IMPRESSION: Satisfactory appearance right knee status post total knee arthroplasty. Left knee degenerative disease medial joint space compartment.
--- NOTE | ~2022-07-15 | XR_ITS ---
EXAMINATION: XR KNEE AP STANDING VIEW, BILATERAL XR KNEE, RIGHT CLINICAL INFORMATION: Pain. COMPARISON: 04/23/2022 and 01/23/2022. TECHNIQUE: AP standing view of both knees and lateral and sunrise views of the right knee. FINDINGS: The patient is status post right total knee arthroplasty with good appearance of prosthetic components. No acute fracture or dislocation is seen. There appears to be a small suprapatellar effusion. AP standing view of the left knee demonstrates significant narrowing of the medial joint space compartment with some mild marginal spurring. XR/XR knee standing BI IMPRESSION: Satisfactory appearance right knee status post total knee arthroplasty. Left knee degenerative disease medial joint space compartment.
== END 2022-07-15 08:32 | disposition home or self-care (01) ==
LOC: HO.HOSX 08:31
PROVIDERS: Visit Provider Orthopaedic Surgery
DX: Z47.1 Aftercare following joint replacement surgery (principal); Z96.651 Presence of right artificial knee joint
CPT/HCPCS: 73560; 73565; 99212

== ENCOUNTER 2022-08-27 08:28 | Outpatient (AMB) | payer MEDICARE, SELFPAY ==
--- NOTE | 2022-08-27 08:49 | AM.OFFVISNUR ---
Intake Intake Visit Reasons: EKG Accompanied by: Self / Same As Patient Allergies morphine [MORPHINE] Allergy (Intermediate, Verified 08/27/22 08:49) ANXIETY,AGITATION, severe aggitation Nursing Note 3 month EKG patient on Multaq 400 BID. EKG shows NSR with a heart rate of 73 BPM. Patient reports feeling good no complaints. EKG left on Dr. Schuster desjabier to review. Office Procedures EKG [id number], Complete Coding Diagnoses CPT Codes EKG - CPT: 26346-[id number], Complete ([id number])
== END 2022-08-27 08:58 | disposition home or self-care (01) ==
PROVIDERS: Visit Provider Internal Medicine Cardiovascular Disease
DX: Z51.81 Encounter for therapeutic drug level monitoring (principal)
CPT/HCPCS: 93010

== ENCOUNTER → 2022-08-27 08:28 | Outpatient (BNVA) | payer MEDICARE, SELFPAY | PROVIDERS: Visit Provider Internal Medicine Cardiovascular Disease | DX: Z79.899 Other long term (current) drug therapy (principal) | CPT/HCPCS: 93005 ==

== ENCOUNTER 2022-11-05 07:48 | Outpatient (AMB) | payer MEDICARE, SELFPAY ==
--- NOTE | 2022-11-05 07:58 | AM.OFFVISMDC ---
Intake Vital Signs 11/05/22 08:02 Height 6 ft 2 in Weight 302 lb 2 oz BMI 38.8 BP 120/80 Blood Pressure Location Rt brachial Position Sitting Pulse 61 Pulse Source Pulse Oximeter Pulse Oximetry (%) 99 Oxygen Delivery Method Room Air Intake Visit Reasons: SWV [id number] Allergies morphine [MORPHINE] Allergy (Intermediate, Verified 11/05/22 08:24) ANXIETY,AGITATION, severe aggitation Medication List - Last Reconciled 11/05/22 by LAUREANO Carlisle acetaminophen 650 mg (2 x 325 mg) PO Q6H PRN 30 days amoxicillin 2,000 mg (4 x 500 mg) PO ONCE 1 day apixaban (Eliquis) 5 mg PO BID 90 days apple cider vinegar 500 mg PO BID [CPAP As directed, for sleep apnea] dronedarone (Multaq) 400 mg PO BID 90 days lisinopril 10 mg PO DAILY magnesium 250 mg PO BEDTIME multivitamin 1 tab PO DAILY omega-3 fatty acids (Fish Oil Concentrate) 1,000 mg PO BID omeprazole 20 mg PO DAILY rosuvastatin 20 mg PO QAM sertraline 100 mg PO QAM walker Folding Front wheeled walker HPI SWV G0439 HPI Details Pt is here for an SWV. Denies fever, chills, and dizziness. [place] of care in scan pile. PPP will be scanned in chart and copy will be given to pt. [facility], he reports these are up to date. [facility] Medical History Routine medical exam Major depression, recurrent, chronic Major depression, recurrent, chronic Skin cancer CAD (coronary artery disease) Hypertension Hyperlipemia PAF (paroxysmal atrial fibrillation) History of cardioversion Hx of skin cancer, basal cell PTSD (post-traumatic stress disorder) BPH (benign prostatic hyperplasia) AAA (abdominal aortic aneurysm) Anxiety and depression Anemia Diverticulosis GERD (gastroesophageal reflux disease) Sleep apnea Surgical History Hx of blepharoplasty History of prostate surgery Hx of arthroscopy of left knee H/O vein stripping (~06/08/21) Hx of blepharoplasty History of prostate surgery Hx of arthroscopy of left knee H/O vein stripping (~06/08/21) Hx of cardiac catheterization H/O umbilical hernia repair History of incision and drainage Hx of tonsillectomy History of esophagogastroduodenoscopy (EGD) History of cardiac radiofrequency ablation Hx of colonoscopy Hx of right knee surgery History of total left hip arthroplasty Family History Father Esophageal cancer Mother Esophageal cancer Social History Household Members: Family Housing: House Are you a primary critical care nurse practitioner to a significant other at home: No Do you presently have visiting nurse or other home services: No Patient Tobacco Use Status: Current everyday Tobacco user Smoking Start Date: 09/11/59 Tobacco use type: Cigarette Cigarettes Per Day: 2 Years Smoked: 25 e-Cigarette/Vaping Use: Never Used Second Hand Smoke Exposure: No Substance Use Type: Marijuana Advance Directives Date on File: 04/27/12 service: No Current occupational status: retired Cognitive needs: No Hearing needs: No Vision needs: No Questionnaire Medicare Wellness Checkup What [age] What gender do you identify with?: male During the past 4 weeks, how much have you been bothered by emotional problems such as feeling anxious, depressed, irritable, sad or downhearted, and blue?: not at all During the past 4 weeks, has your physical & emotional health limited your social activities with family, friends, neighbors, or groups?: not at all During the past 4 weeks, how much bodily pain have you generally had?: moderate pain During the past 4 weeks, was someone available to help you if you needed & wanted help?: yes, as much as I wanted During the past 4 weeks, what was the hardest physical activity you could do for at least 2 minutes?: heavy Can you get to places out of walking distance without help? (For eg., can you travel alone on buses, taxis or drive your car?): Yes Can you go shopping for groceries or clothes without someone's help?: Yes Can you prepare your own meals?: Yes Because of any health problems, do you need the help of another person with your personal care needs such as eating, bathing, dressing or getting around the house?: No Can you handle your own money without help?: Yes During the past 4 weeks, how would you rate your health in general?: very good During the past 4 weeks how have things been going for you?: very well; could hardly better Are you having difficulties driving your car?: no Do you always fasten your seat belt when you are in a car?: yes, usually During past 4 weeks, have you been bothered by the following: never: Falling or dizzy when standing up, Sexual problems?, Trouble eating well?, Teeth or denture problems? and Problems using the telephone? and seldom: Tiredness or fatigue? Have you fallen 2 or more times in the past year?: No Are you afraid of falling?: No Are you a smoker?: yes, and I might quit During the past 4 weeks, how many drinks of wine, beer, or other alcoholic beverages did you have?: no alcohol at all Do you exercise for about 20 minutes 3 or more times a week?: yes, most of the time Have you been given information to help with the following?: no: Hazards in your house that might hurt you? and no: Keeping track of your medications? How often do you have trouble taking medicines the way you have been told to take them?: I always take medicine as prescribed How confident are you that you can control & manage most of your health problems?: very confident What is your race?: or [place] Mini Mental State Exam (MMSE) Orientation What is the (year) (season) (date) (day) (month)?: year (2022) Where are we (state) (county) (town or city) (hospital) (floor)?[place] state ([place]v) Registration Name of 3 unrelated objects clearly and slowly, then ask patient to repeat all 3 of them. (1st repeat determines score. Make sure they can repeat all three): object 1, object 2 and object 3 Attention & Calculation (CHOOSE ONE) Spell WORLD backwards (DLROW): 5 letters Recall Ask patient to repeat the 3 items from question #3.: object 1, object 2 and object 3 Language Show patient a wristwatch & ask what it is. Repeat for pencil.: watch and pencil Ask the patient to repeat the phrase 'No ifs, ands, or buts' after you.: correct Ask the patient to 'take a piece of paper with their right hand' 'fold paper in half' 'place paper on floor': take paper in right hand, fold paper in half and place paper on floor Print the sentence 'CLOSE YOUR EYES' on a piece. If patient actually closes eyes then score.: followed written direction Give patient a blank piece of paper & ask to write a sentence. Score if it contains a noun & verb.: sentence contains subject and verb Ask patient to copy figure of intersecting pentagons exactly. Score if all 10 angles & 2 intersects are included.: all 10 angles present & 2 are intersected Score Score: 22 Activity of Daily Living Bathing - sponge bath, tub bath or shower: receives no assistance (gets in/out by self, if usual bathing means Dressing - getting clothes from closets & drawers, including inner/outer garments & fasteners.: gets clothes & gets completely dressed without help Toileting - going to the 'toilet room' for urine/bowel elimination & cleaning self/arranging clothes: goes to toilet room, cleans self, arranges clothes without help Transfer: moves in & out of bed and chair without help (may use support object) Continence: controls urination/bowel movements completely by self Feeding: feeds self without help Total Score: 0 Information obtained from: patient Using telephone: independent Traveling: independent Shopping: independent Preparing meals: independent Housework: independent Taking medicine: independent Managing money: independent PHQ-9 Over the last 2 weeks, how often have you been bothered by any of the following problems? 1. Little interest or pleasure in doing things: not at all 2. Feeling down, depressed, or hopeless: not at all 3. Trouble falling or staying asleep, or sleeping too much: not at all 4. Feeling tired or having little energy: several days 5. Poor appetite or overeating: several days 6. Feeling bad about yourself - or that you are a failure or have let yourself or your family down: not at all 7. Trouble concentrating on things, such as reading the newspaper or watching television: not at all 8. Moving or speaking so slowly that other people could have noticed. Or the opposite - being so fidgety or restless that you have been moving around a lot more than usual: not at all 9. Thoughts that you would be better off or of hurting yourself in some way: not at all Total score: 2 Source: Developed by Drs. Gamaliel Good, Yolanda Martinez, Jacob Johnston and colleagues, with an educational marvel from [employer]. Review of Systems Const Reports as per HPI Physical Exam Vital Signs: Last Vital Signs Pulse 61 11/05/22 08:02 BP 120/80 11/05/22 08:02 Pulse Ox 99 11/05/22 08:02 Oxygen Delivery Method Room Air 11/05/22 08:02 BMI result Body Mass Index 38.8 Const General: cooperative Nutritional Appearance: obese Orientation/consciousness: patient oriented x3 Neuro Other: - romberg, can tandem walk, can walk and turn, can rise from sitting to standing, passed whisper test General: patient oriented x3 Psych Appearance: grossly normal Mental Status: mental status grossly normal Speech and movement: Normal speech and movement present Affect: normal affect Attitude: cooperative Thought process: Normal thought process present Thought content: Normal thought content present Insight: Good insight present (Psych) Judgement: Good judgement present (Psych) Assessment & Plan Assessment & Plan (1) Encounter for subsequent annual wellness visit (AWV) in Medicare patient: Code(s): Z00.00 - Encounter for general adult medical examination without abnormal findings Plan The patient agreed to the use of a medical technicians for this encounter. Scribed for LAUREANO Emanuel by Juli Quesada medical technicians, on 11/05/2022 at 08:15 EST. Quality Reporting (2019) Depression/Bipolar (159/160/161/177) PHQ-9: Total score: 2 Coding Level of Care Code Medicare Subsequent (G0439) Diagnoses Encounter for subsequent annual wellness visit (AWV) in Medicare patient Z00.00 CPT Codes Advance Care Planning - Time spent: 16-45 minutes ([id number]) Advance Care Planning Forms completed: Health Care Proxy (form given to pt), MOLST (copy in scan pile) and Living will (done) Time spent: 16-45 minutes
[2022-11-05 08:02] VITALS: BP 120/80; PULSE 61; O2SAT 99; BMI 38.8
== END 2022-11-05 08:37 | disposition home or self-care (01) ==
PROVIDERS: Visit Provider Nurse Practitioner Family
DX: Z00.00 Encounter for general adult medical examination without abnormal findings (principal)
CPT/HCPCS: G0439

== ENCOUNTER 2022-11-23 15:06 | Emergency (ER) | payer MEDICARE, SELFPAY ==
[2022-11-23 15:47] VITALS: BP 134/59; PULSE 72; RESP 18; TEMP 36.9; O2SAT 95; BMI 38.1
--- NOTE | 2022-11-23 15:47 | ED.BACK ---
HPI - Back Pain/Injury General Chief Complaint: Back Pain/Injury Stated Complaint: Back pain Time Seen by Provider: 11/23/22 17:29 Related Data Home Medications Medication Instructions Recorded Confirmed lisinopril 10 mg tablet 10 mg PO DAILY 11/24/19 11/05/22 omeprazole 20 mg tablet,delayed 20 mg PO DAILY 11/24/19 11/05/22 release multivitamin 1 tab PO DAILY 09/27/20 11/05/22 omega-3 fatty acids 1,000 mg 1,000 mg PO BID 09/27/20 11/05/22 capsule (Fish Oil Concentrate) apple cider vinegar 500 mg tablet 500 mg PO BID 09/12/21 11/05/22 magnesium 250 mg tablet 250 mg PO BEDTIME 09/12/21 11/05/22 rosuvastatin 20 mg tablet 20 mg PO QAM 04/11/22 11/05/22 Previous Rx's Medication Instructions Recorded CPAP #1 ea 12/30/19 dronedarone 400 mg tablet (Multaq) 400 mg PO BID 90 days #180 tabs 02/27/21 apixaban 5 mg tablet (Eliquis) 5 mg PO BID 90 days #180 tabs 03/27/22 walker #1 ea 04/22/22 acetaminophen 325 mg tablet 650 mg (2 x 325 mg) PO Q6H PRN 04/26/22 Pain, Mild (Pain Scale 1-3) 30 days #240 tabs amoxicillin 500 mg tablet 2,000 mg (4 x 500 mg) PO ONCE 1 06/05/22 day #4 tabs sertraline 100 mg tablet 100 mg PO QAM #90 tabs 07/23/22 cyclobenzaprine 10 mg tablet 10 mg PO TID PRN muscle pain or 11/24/22 spasm #20 tabs oxycodone 5 mg tablet 5 mg PO Q4H PRN pain #14 tabs 11/24/22 Allergies Allergy/AdvReac Type Severity Reaction Status Date / Time morphine [MORPHINE] Allergy Intermediate ANXIETY,AGITATION, Verified 11/05/22 08:24 severe aggitation PMFSH Past Medical History Medical History Routine medical exam Major depression, recurrent, chronic Major depression, recurrent, chronic Skin cancer CAD (coronary artery disease) Hypertension Hyperlipemia PAF (paroxysmal atrial fibrillation) History of cardioversion Hx of skin cancer, basal cell PTSD (post-traumatic stress disorder) BPH (benign prostatic hyperplasia) AAA (abdominal aortic aneurysm) Anxiety and depression Anemia Diverticulosis GERD (gastroesophageal reflux disease) Sleep apnea Surgical History Hx of blepharoplasty History of prostate surgery Hx of arthroscopy of left knee H/O vein stripping (~06/08/21) Hx of blepharoplasty History of prostate surgery Hx of arthroscopy of left knee H/O vein stripping (~06/08/21) Hx of cardiac catheterization H/O umbilical hernia repair History of incision and drainage Hx of tonsillectomy History of esophagogastroduodenoscopy (EGD) History of cardiac radiofrequency ablation Hx of colonoscopy Hx of right knee surgery History of total left hip arthroplasty Family History Family History Father Esophageal cancer Mother Esophageal cancer Social History Social History (Reviewed 11/05/22 @ 08:25 by Vijay Jaramillo [facility] Household Members: Family Housing: House Are you a primary care associate to a significant other at home: No Do you presently have visiting nurse or other home services: No Patient Tobacco Use Status: Current everyday Tobacco user Smoking Start Date: 09/11/59 Tobacco use type: Cigarette Cigarettes Per Day: 2 Years Smoked: 25 e-Cigarette/Vaping Use: Never Used Second Hand Smoke Exposure: No Substance Use Type: Marijuana Advance Directives: Yes Advance Directives on File: Yes Advance Directives Date on File: 04/27/12 service: No Current occupational status: retired Cognitive needs: No Hearing needs: No Vision needs: No Physical Exam Vital Signs: Vital Signs: Last Vital Signs Temp 98.4 F 11/23/22 15:47 Pulse 72 11/23/22 15:47 Resp 18 11/23/22 15:47 BP 134/59 L 11/23/22 15:47 Pulse Ox 95 11/23/22 15:47 O2 Del Method Room Air 11/23/22 15:47 BMI result Body Mass Index 38.1 Course Course Course Narrative: This is a rapid medical history. Deferred additional HPi, ROS, PE to primary provider. 67-year-old male with history of paroxysmal AFib on apixaban, CAD, HTN, PTSD, HLD anxiety/depression, anemia, AAA, VIDYA here with complaints of right lower back x 6 hrs after doing activity in the yard. Radiates down the leg. Worsened with activity/movement/bending. Will need exam by provider. VSS Discharge Plan Discharge Clinical Impression: Back pain Patient Disposition: Left W/O Completing Treatment Prescriptions: No Action (DME) CPAP See Rx Instructions .Route .MEDSUPPLY Qty: 1 0RF Rx Instructions: As directed, for sleep apnea Eliquis 5 mg tablet 5 mg PO BID 90 Days Qty: 180 3RF (DME) walker Misc See Rx Instructions .MEDSUPPLY Qty: 1 0RF Rx Instructions: Folding Front wheeled walker sertraline 100 mg tablet 100 mg PO QAM Qty: 90 1RF lisinopril 10 mg Tablet 10 mg PO DAILY omeprazole 20 mg Tablet,Delayed Release (Dr/Ec) 20 mg PO DAILY rosuvastatin 20 mg tablet 20 mg PO QAM acetaminophen 325 mg Tablet 650 mg PO Q6H PRN (Reason: Pain, Mild (Pain Scale 1-3)) 30 Days Qty: 240 0RF cyclobenzaprine 10 mg tablet 10 mg PO TID PRN (Reason: muscle pain or spasm) Qty: 20 0RF oxycodone 5 mg tablet 5 mg PO Q4H PRN (Reason: pain) Qty: 14 0RF Rx Instructions: Patient may request partial fill; Partial Fill upon patient request. omega-3 fatty acids [Fish Oil Concentrate] 1,000 mg capsule 1,000 mg PO BID Hold Instructions: Resume on 05/27/22. multivitamin Tablet 1 tab PO DAILY magnesium 250 mg tablet 250 mg PO BEDTIME apple cider vinegar 500 mg tablet 500 mg PO BID Multaq 400 mg tablet 400 mg PO BID 90 Days Qty: 180 3RF amoxicillin 500 mg tablet 2,000 mg PO ONCE 1 Days Qty: 4 3RF Rx Instructions: take 4 capsules 1 hr prior to dental procedure Discharge Date/Time: 11/23/22 18:04
== END 2022-11-23 18:04 | disposition left against medical advice (07) ==
LOC: HO.ED 17:32
PROVIDERS: Emergency Provider Emergency Medicine
DX: M54.50 Low back pain, unspecified (principal); I10 Essential (primary) hypertension; I48.0 Paroxysmal atrial fibrillation; D64.9 Anemia, unspecified; Z79.01 Long term (current) use of anticoagulants
CPT/HCPCS: 99281; 99282

== ENCOUNTER 2022-11-24 03:26 | Emergency (ER) | payer MEDICARE, SELFPAY ==
[2022-11-24 04:42] VITALS: BP 133/75; PULSE 63; RESP 18; TEMP 36.6; O2SAT 98; BMI 37.9
[2022-11-24 05:03] LABS: MANUAL DIFF FLAG NO
[2022-11-24 05:04] LABS: Basophils Percent Auto 0.7 % (0-2); Eosinophils Absolute Auto 0.2 X10*3/uL (0.0-0.4); Eosinophils Percent Auto 3.3 % (0-4); Hematocrit 37.2 % (42.0-52.0); Hemoglobin 12.6 g/dl (14.0-18.0); Imm Gran Abs Auto 0.01 X10*3/uL (0.00-0.03); Imm Gran Pct Auto 0.2 % (0.0-0.4); Lymphocytes Absolute Auto 1.6 X10*3/uL (1.2-4.9); Lymphocytes Percent Auto 27.1 % (20-40); Mean Corpuscular HGB Conc 33.9 g/dl (31.0-36.0); Mean Corpuscular Hemoglobin 30.7 pg (27.0-33.0); Mean Corpuscular Volume 90.7 fL (80.0-98.0); Mean Platelet Volume 9.7 fL (9.4-12.4); Monocytes Absolute Auto 0.6 X10*3/uL (0.1-1.2); Monocytes Percent Auto 10.5 % (2-11); Neutrophils Absolute Auto 3.4 x10*3/uL (2.0-8.3); Neutrophils Percent Auto 58.2 % (45-73); Platelet Count 202 X10*3/uL (160-400); Red Cell Distribution Width 13.3 % (11.0-16.0); White Blood Count 5.8 X10*3/uL (4.8-10.8)
[2022-11-24 05:22] LABS: Alanine Aminotransferase 19 U/L (0-40); Albumin Level 4.1 g/dL (3.5-5.0); Alkaline Phosphatase 72 U/L (39-117); Anion Gap 13 (12-20); Aspartate Amino Transferase 20 U/L (5-37); Bilirubin Direct 0.1 mg/dL (0.0-0.5); Bilirubin Total 0.4 mg/dL (0.0-1.0); Blood Urea Nitrogen 15 mg/dL (9-16); Calcium 9.1 mg/dL (8.4-10.2); Carbon Dioxide 25 mmol/L (22-29); Chloride 106 mmol/L (96-108); Creatinine Clr Calc Pharmacy 135.2; Estimated Glomerular Filt Rate > 60; Glucose Random 109 mg/dL (60-115); Lipase 14 U/L (8-78); Potassium 4.4 mmol/L (3.3-5.1); Sodium 140 mmol/L (135-145)
--- NOTE | 2022-11-24 06:37 | ED.BACK ---
HPI - Back Pain/Injury General Chief Complaint: Back Pain/Injury Stated Complaint: BACK PAIN Time Seen by Provider: 11/24/22 06:09 Source: patient Mode of arrival: ambulatory Limitations: no limitations History of Present Illness HPI Narrative: 67-year-old male presents emergency department for evaluation of mid to lower back pain that started yesterday after doing yd work. Patient states that yesterday he was doing yd work for about 1-1/2 hours he states that he did lift a 100 lb bird bath base and moved it but did not have any pain at the time. The patient states that when he went into the house, 45 minutes after finishing the yd working developed pain in his mid to lower back. The pain did radiate to his right buttocks and down to his right knee. He denied fever, chills, dysuria but states that he has chronic frequency. He states that the pain is 3/10 at rest but is 10/10 when he moves. Patient did come to the emergency department yesterday but had to leave secondary to long wait time. Patient states that the pain that was radiating down his right leg is now resolved but he has continued to have lower back pain. The patient did take acetaminophen without relief his pain. Patient is on Eliquis for atrial fibrillation. Related Data Home Medications Medication Instructions Recorded Confirmed lisinopril 10 mg tablet 10 mg PO DAILY 11/24/19 11/05/22 omeprazole 20 mg tablet,delayed 20 mg PO DAILY 11/24/19 11/05/22 release multivitamin 1 tab PO DAILY 09/27/20 11/05/22 omega-3 fatty acids 1,000 mg 1,000 mg PO BID 09/27/20 11/05/22 capsule (Fish Oil Concentrate) apple cider vinegar 500 mg tablet 500 mg PO BID 09/12/21 11/05/22 magnesium 250 mg tablet 250 mg PO BEDTIME 09/12/21 11/05/22 rosuvastatin 20 mg tablet 20 mg PO QAM 04/11/22 11/05/22 Previous Rx's Medication Instructions Recorded CPAP #1 ea 12/30/19 dronedarone 400 mg tablet (Multaq) 400 mg PO BID 90 days #180 tabs 02/27/21 apixaban 5 mg tablet (Eliquis) 5 mg PO BID 90 days #180 tabs 03/27/22 walker #1 ea 04/22/22 acetaminophen 325 mg tablet 650 mg (2 x 325 mg) PO Q6H PRN 04/26/22 Pain, Mild (Pain Scale 1-3) 30 days #240 tabs amoxicillin 500 mg tablet 2,000 mg (4 x 500 mg) PO ONCE 1 06/05/22 day #4 tabs sertraline 100 mg tablet 100 mg PO QAM #90 tabs 07/23/22 cyclobenzaprine 10 mg tablet 10 mg PO TID PRN muscle pain or 11/24/22 spasm #20 tabs oxycodone 5 mg tablet 5 mg PO Q4H PRN pain #14 tabs 11/24/22 Allergies Allergy/AdvReac Type Severity Reaction Status Date / Time morphine [MORPHINE] Allergy Intermediate ANXIETY,AGITATION, Verified 11/05/22 08:24 severe aggitation Review of Systems Review of Systems: Yes all other systems are reviewed and are negative [facility] Past Medical History [facility] Narrative: Social history: Patient is . He occasionally drinks alcohol. He denies alcohol use. He does smoke marijuana occasionally Medical History Routine medical exam Major depression, recurrent, chronic Major depression, recurrent, chronic Skin cancer CAD (coronary artery disease) Hypertension Hyperlipemia PAF (paroxysmal atrial fibrillation) History of cardioversion Hx of skin cancer, basal cell PTSD (post-traumatic stress disorder) BPH (benign prostatic hyperplasia) AAA (abdominal aortic aneurysm) Anxiety and depression Anemia Diverticulosis GERD (gastroesophageal reflux disease) Sleep apnea Surgical History Hx of blepharoplasty History of prostate surgery Hx of arthroscopy of left knee H/O vein stripping (~06/08/21) Hx of blepharoplasty History of prostate surgery Hx of arthroscopy of left knee H/O vein stripping (~06/08/21) Hx of cardiac catheterization H/O umbilical hernia repair History of incision and drainage Hx of tonsillectomy History of esophagogastroduodenoscopy (EGD) History of cardiac radiofrequency ablation Hx of colonoscopy Hx of right knee surgery History of total left hip arthroplasty Family History Family History Father Esophageal cancer Mother Esophageal cancer Social History Social History Household Members: Family Housing: House Are you a primary healthcare receptionist to a significant other at home: No Do you presently have visiting nurse or other home services: No Patient Tobacco Use Status: Current everyday Tobacco user Smoking Start Date: 09/11/59 Tobacco use type: Cigarette Cigarettes Per Day: 2 Years Smoked: 25 e-Cigarette/Vaping Use: Never Used Second Hand Smoke Exposure: No Substance Use Type: Marijuana Advance Directives: Yes Advance Directives on File: Yes Advance Directives Date on File: 04/27/12 service: No Current occupational status: retired Cognitive needs: No Hearing needs: No Vision needs: No Physical Exam Vital Signs: Vital Signs: Last Vital Signs Temp 97.9 F 11/24/22 04:42 Pulse 63 11/24/22 04:42 Resp 18 11/24/22 04:42 BP 133/75 11/24/22 04:42 Pulse Ox 98 11/24/22 04:42 O2 Del Method Room Air 11/24/22 04:42 BMI result Body Mass Index 37.9 Vital signs were normal Exam: General: Awake, alert in no distress Head: Normocephalic, atraumatic EENT: PERRL, Lids normal, sclera normal, conjunctiva normal, nose normal , ears normal, throat without erythema or exudates Neck: Supple, no adenopathy, trachea midline and nontender Lung: breath sounds symmetric, no wheezing, rales or rhonchi Chest: symmetric movement, nontender Heart: regular rate and rhythm, normal S1, S2 no murmurs or rubs Abdomen: soft, non-tender, nondistended, normal bowel sounds Back: Tender over the paraspinal in the lumbar sacral area, right greater than left, spasm of these muscles, right greater than left, negative straight leg raises bilaterally Extremities: no deformities, moves all extremities symmetrically Skin: no rashes, no lesion, normal color and warmth Neuro: Awake, alert, oriented, normal speech, cranial nerves intact, moves all extremities symmetrically Psych: Pleasant, cooperative Medical Decision Making Medical Decision Making MDM Narrative: 67-year-old male with history of atrial fibrillation on Eliquis who presents emergency department for evaluation 1 day of lower back pain that started after he worked in his yd for approximately 1-1/2 hours. Patient's physical examination did reveal tenderness palpation of the paraspinal muscles in lumbar sacral area right greater than left with spasm of these muscles. The patient had a normal neurologic exam and negative straight leg raises. Patient's laboratory evaluation was unremarkable. The patient's presentation is consistent with lumbar sacral muscle sprain. Patient was treated in the emergency department with oxycodone 10 mg orally and Flexeril 10 mg orally. Patient was advised to take Tylenol 1000 mg every 6 hours as needed for pain and for pain not relieved by this medication was prescribed oxycodone 5 mg every 6 hours. He was also given a prescription for cyclobenzaprine 10 mg 3 times a day as needed for pain and spasm. He was given printed and verbal instructions and discharged home. Differential Diagnosis Differential Diagnoses: The differential diagnosis associated with the presentation includes Differential diagnosis includes was not limited to musculoskeletal sprain, disc disease, arthritis, infectious etiology Admission/Observation Consideration of admission/observation: Escalation of care including admission/observation considered Lab Data MDM Lab Attestation statement: I reviewed the patient's lab results. My interpretation patient's laboratory evaluation is as follows: CBC was normal. CMP was normal. 11/24/22 04:58 11/24/22 04:58 Labs: Lab Results 11/24/22 Range/Units 04:58 WBC 5.8 (4.8-10.8) X10*3/uL RBC 4.10 L (4.60-5.80) X10*6/uL Hgb 12.6 L (14.0-18.0) g/dl Hct 37.2 L (42.0-52.0) % MCV 90.7 (80.0-98.0) fL MCH 30.7 (27.0-33.0) pg MCHC 33.9 (31.0-36.0) g/dl RDW 13.3 (11.0-16.0) % Plt Count 202 (160-400) X10*3/uL MPV 9.7 (9.4-12.4) fL Immature Gran % (Auto) 0.2 (0.0-0.4) % Neut % (Auto) 58.2 (45-73) % Lymph % (Auto) 27.1 (20-40) % Fleming % (Auto) 10.5 (2-11) % Eos % (Auto) 3.3 (0-4) % Baso % (Auto) 0.7 (0-2) % Lymph # (Auto) 1.6 (1.2-4.9) X10*3/uL Fleming # (Auto) 0.6 (0.1-1.2) X10*3/uL Eos # (Auto) 0.2 (0.0-0.4) X10*3/uL Baso # (Auto) 0.0 (0.0-0.2) X10*3/uL Abs Immat Gran (auto) 0.01 (0.00-0.03) X10*3/uL Absolute Neuts (auto) 3.4 (2.0-8.3) x10*3/uL Absolute Nucleated RBC 0.000 (0.0-0.012) X10*3/uL Nucleated RBC % (auto) 0.0 (0.0-0.2) /100WBC Sodium 140 (135-145) mmol/L Potassium 4.4 (3.3-5.1) mmol/L Chloride 106 (96-108) mmol/L Carbon Dioxide 25 (22-29) mmol/L Anion Gap 13 (12-20) BUN 15 (9-16) mg/dL Creatinine 0.75 (0.5-1.4) mg/dL Estim Creat Clear Calc 135.2 Estimated GFR > 60 Random Glucose 109 (60-115) mg/dL Calcium 9.1 (8.4-10.2) mg/dL Total Bilirubin 0.4 (0.0-1.0) mg/dL Direct Bilirubin 0.1 (0.0-0.5) mg/dL AST 20 (5-37) U/L ALT 19 (0-40) U/L Alkaline Phosphatase 72 (39-117) U/L Total Protein 7.0 (6.5-8.0) g/dL Albumin 4.1 (3.5-5.0) g/dL Lipase 14 (8-78) U/L Prescription Management I considered prescription management with: Pain Medication and Other (Muscle relaxant) Chronic Conditions Patient?s care impacted by: Other (Atrial fibrillation on Eliquis) Discharge Plan Discharge Clinical Impression: Lumbar back pain Patient Disposition: Home, Self-Care Instructions: Acute Low Back Pain (ED) Additional Instructions: Take Tylenol (acetaminophen) 500 mg pills, 2 pills every 6 hours as needed for pain. For pain not relieved by Tylenol take oxycodone 5 mg pills, 1 pill every 4 hours as needed for pain. Do not drive or work while taking this medication since they can cause sleepiness. Oxycodone is a narcotic medication that can be addicting. If you are concerned about addiction you can ask the pharmacist for less pills or do not get this prescription filled. Take Flexeril (cyclobenzaprine) 10 mg pills, 1 pill every 6-8 hours as needed for pain or spasm. This medication will make you sleepy. Do not drive or work while taking this medication. Follow-up with your doctor in 2 days. Please return to the emergency department if your symptoms get worse or if you develop any symptoms that are concerning to you. Prescriptions: New cyclobenzaprine 10 mg tablet 10 mg PO TID PRN (Reason: muscle pain or spasm) Qty: 20 0RF oxycodone 5 mg tablet 5 mg PO Q4H PRN (Reason: pain) Qty: 14 0RF Rx Instructions: Patient may request partial fill; Partial Fill upon patient request. No Action (DME) CPAP See Rx Instructions .Route .MEDSUPPLY Qty: 1 0RF Rx Instructions: As directed, for sleep apnea Eliquis 5 mg tablet 5 mg PO BID 90 Days Qty: 180 3RF (DME) walker Misc See Rx Instructions .MEDSUPPLY Qty: 1 0RF Rx Instructions: Folding Front wheeled walker sertraline 100 mg tablet 100 mg PO QAM Qty: 90 1RF lisinopril 10 mg Tablet 10 mg PO DAILY omeprazole 20 mg Tablet,Delayed Release (Dr/Ec) 20 mg PO DAILY rosuvastatin 20 mg tablet 20 mg PO QAM acetaminophen 325 mg Tablet 650 mg PO Q6H PRN (Reason: Pain, Mild (Pain Scale 1-3)) 30 Days Qty: 240 0RF omega-3 fatty acids [Fish Oil Concentrate] 1,000 mg capsule 1,000 mg PO BID Hold Instructions: Resume on 05/27/22. multivitamin Tablet 1 tab PO DAILY magnesium 250 mg tablet 250 mg PO BEDTIME apple cider vinegar 500 mg tablet 500 mg PO BID Multaq 400 mg tablet 400 mg PO BID 90 Days Qty: 180 3RF amoxicillin 500 mg tablet 2,000 mg PO ONCE 1 Days Qty: 4 3RF Rx Instructions: take 4 capsules 1 hr prior to dental procedure
[2022-11-24] MEDS: Cyclobenzaprine HCl 10 MG TABLET PO (07:27)
[2022-11-24] MEDS: oxyCODONE HCl Immed Release 5 MG TABLET 10 MG PO (07:28)
== END 2022-11-24 07:32 | disposition home or self-care (01) ==
PROVIDERS: Emergency Provider Emergency Medicine Emergency Medical Services; PCP Nurse Practitioner Family
DX: M54.50 Low back pain, unspecified (principal); M79.604 Pain in right leg; I48.91 Unspecified atrial fibrillation; Z79.01 Long term (current) use of anticoagulants; I25.10 Atherosclerotic heart disease of native coronary artery without angina pectoris; I10 Essential (primary) hypertension; F17.210 Nicotine dependence, cigarettes, uncomplicated; Z71.6 Tobacco abuse counseling; Z79.899 Other long term (current) drug therapy
CPT/HCPCS: 36415; 80048; 80076; 83690; 85025; 99283

== ENCOUNTER 2022-11-26 14:38 | Outpatient (AMB) | payer MEDICARE, SELFPAY ==
[2022-11-26 15:46] VITALS: BP 132/80; PULSE 68; TEMP 36.8; O2SAT 98
--- NOTE | 2022-11-26 15:46 | AM.OFFWIN_ITS ---
Intake Vital Signs 11/26/22 15:46 Height 6 ft 2 in BP 132/80 Blood Pressure Location Lt brachial Position Sitting Pulse 68 Pulse Source Pulse Oximeter Temp 98.2 F Temp Source Temporal Artery Scan Pulse Oximetry (%) 98 Intake Visit Reasons: EP, Back Pain Intake Note: pt is here for c/o back pain Patient Tobacco Use Status: Current everyday Tobacco user Allergies morphine [MORPHINE] Allergy (Intermediate, Verified 11/26/22 15:47) ANXIETY,AGITATION, severe aggitation Do you need a note to return to daycare/school/sports/work: Yes HPI HPI Comments History of Present Illness Details This is a 67-year-old male with a past medical history of atrial fibrillation currently maintained on Eliquis, BPH, hypertension, hyperlipidemia and anxiety presenting for evaluation of low back pain. Patient states that on November 23 he was working outside in his yard lifting heavy concrete items. Patient denies any overt injury however after returning inside that afternoon, stood up from his recliner and felt a 10/10 sharp and aching pain in his right lower back that radiates to the front of his right lower leg. Patient also reports a new aching pain in his left anterior ankle. Patient went to the emergency department that night however left without being seen and returned on November 24 for evaluation in the emergency department. Patient states there was no imaging performed and he was discharged home with oxycodone, Tylenol and cyclobenzaprine. The patient states he has already taken all of the oxycodone and is taking the cyclobenzaprine only at night. He does not feel that the Tylenol is helpful for his discomfort. Patient denies any bladder or bowel incontinence however feels that he has to make more of an effort to start a stream of urine. Patient's last bowel movement was on Friday afternoon. Patient feels that the pain on his right anterior lower leg it is more of a numbness at this time. Patient denies any loss of sensation on the plantar surfaces of his feet bilaterally. The patient's PCP has ordered lumbar films which will be completed following this visit. COUNTS INCLUDE 234 BEDS AT THE [facility] Medical History Routine medical exam Major depression, recurrent, chronic Major depression, recurrent, chronic Skin cancer CAD (coronary artery disease) Hypertension Hyperlipemia PAF (paroxysmal atrial fibrillation) History of cardioversion Hx of skin cancer, basal cell PTSD (post-traumatic stress disorder) BPH (benign prostatic hyperplasia) AAA (abdominal aortic aneurysm) Anxiety and depression Anemia Diverticulosis GERD (gastroesophageal reflux disease) Sleep apnea Surgical History Hx of blepharoplasty History of prostate surgery Hx of arthroscopy of left knee H/O vein stripping (~06/08/21) Hx of blepharoplasty History of prostate surgery Hx of arthroscopy of left knee H/O vein stripping (~06/08/21) Hx of cardiac catheterization H/O umbilical hernia repair History of incision and drainage Hx of tonsillectomy History of esophagogastroduodenoscopy (EGD) History of cardiac radiofrequency ablation Hx of colonoscopy Hx of right knee surgery History of total left hip arthroplasty Family History Father Esophageal cancer Mother Esophageal cancer Social History Household Members: Family Housing: House Are you a primary child care lead teacher to a significant other at home: No Do you presently have visiting nurse or other home services: No Patient Tobacco Use Status: Current everyday Tobacco user Smoking Start Date: 09/11/59 Tobacco use type: Cigarette Cigarettes Per Day: 2 Years Smoked: 25 e-Cigarette/Vaping Use: Never Used Second Hand Smoke Exposure: No Substance Use Type: Marijuana Advance Directives Date on File: 04/27/12 service: No Current occupational status: retired Cognitive needs: No Hearing needs: No Vision needs: No Review of Systems Const All systems reviewed & are unremarkable except as noted in HPI and below Musc Reports abnormal gait, Reports back pain, Denies arthralgias, Reports muscle cramps, Reports numbness (R distal lower extremity) and Reports radiating pain into limb Skin/Breast Reports system reviewed and no additional complaints, except as documented Neuro Reports abnormal gait, Reports numbness (R distal lower extremity), Reports radicular pain and Reports paresthesias (R. distal lower extremity) Psych Reports no additional complaints Physical Exam Vital Signs: Last Vital Signs Temp 98.2 F 11/26/22 15:46 Pulse 68 10/17/23 15:46 BP 132/80 11/26/22 15:46 Pulse Ox 98 11/26/22 15:46 Const General: cooperative, in distress mild and anxious Nutritional Appearance: obese Orientation/consciousness: patient oriented x3 Limitations: no limitations General: Yes no CVA tenderness Back/Spine/Pelvis Back: no CVA tenderness Thoracic/Lumbar Spine: thoracic and lumbar spine normal to inspection, straight leg raise negative bilaterally, pain with thoraco-lumbar ROM, paraspinal muscle tenderness on the right greater than left (lumbar) and No straight leg raise positive Sacroiliac joints: bilaterally tender to palpation (Right >> Left) Sacrum: no tenderness Coccyx: no tenderness Skin General skin exam: no rashes or lesions noted Neuro General: patient oriented x3 Motor exam (neuro): 5/5 motor strength present throughout (lower extremities bilaterally; passive ROM knees, ankles intact), Normal motor muscle tone present throughout and Other motor observations present (sensation intact plantar surfaces of the feet bilaterally) Deep tendon reflexes (DTR's): Right patellar reflex intensity grade: 1+, Left patellar reflex intensity grade: 2+, Right ankle reflex intensity grade: 1+ and Left ankle reflex intensity grade: 2+ Psych Appearance: grossly normal Mental Status: mental status grossly normal Insight: Good insight present (Psych) Judgement: Good judgement present (Psych) Assessment & Plan Assessment & Plan (1) Lumbar back pain with radiculopathy affecting right lower extremity: Code(s): M54.16 - Radiculopathy, lumbar region Plan: Prednisone 40mg daily x 5 days to be taken with the cyclobenzaprine that was previously prescribed. Patient will follow up with his primary care physician regarding the results of imaging and further disposition. Medications: New prednisone 40 mg (2 x 20 mg) PO DAILY 10 tabs 0RF Coding Level of Care Code Est Pt Level 3 (36893) Diagnoses Lumbar back pain with radiculopathy affecting right lower extremity M54.16 Time Spent (min) 20
== END 2022-11-26 17:02 | disposition home or self-care (01) ==
PROVIDERS: PCP Nurse Practitioner Family; Visit Provider Physician Assistant
DX: M54.16 Radiculopathy, lumbar region (principal)
CPT/HCPCS: 99213

== ENCOUNTER 2022-11-26 16:38 | Outpatient (REF) | payer MEDICARE, SELFPAY ==
--- NOTE | ~2022-11-26 | XR_ITS ---
EXAMINATION: XR LUMBOSACRAL SPINE CLINICAL INFORMATION: Low back COMPARISON: 08/30/2020 TECHNIQUE: Three views of the lumbosacral spine. FINDINGS: There are 5 not ribs bearing vertebral bodies and lumbar spine. There are multilevel degenerative changes with subchondral sclerosis and marginal spurring, narrowing cough L5-S1 and grade 1 anterior listhesis of L4 over L5. There is bridging osteophytes formation between the T12 and L1 and L1 and L2. Sacroiliac joints unremarkable. XR/XR lumbar spine 2-3V IMPRESSION: Stable multilevel degenerative changes are described. Mild grade 1 anterior listhesis of L4 over L5.
== END 2022-11-26 16:39 | disposition home or self-care (01) ==
LOC: HO.HMGCX 16:38
PROVIDERS: PCP Nurse Practitioner Family; Visit Provider Nurse Practitioner Family
DX: M54.50 Low back pain, unspecified (principal)
CPT/HCPCS: 72100

== ENCOUNTER 2022-12-02 08:52 | Outpatient (AMB) | payer MEDICARE, SELFPAY ==
--- NOTE | 2022-12-02 08:55 | A.OFFVIS_ITS ---
Intake Vital Signs 12/02/22 08:56 Height 6 ft 2 in Weight 295 lb BMI 37.9 Intake Visit Reasons: New Prob - Left Knee Pain Intake Note: Marv is a 67 year old male who presents today for a new problem visit with complaints of left knee pain. He explains that he has had and increase in pain over the last few months. He has increased stiffness and pain. No previous treatment of this left knee. Right TKA 04/23/22 [place] Allergies morphine [MORPHINE] Allergy (Intermediate, Verified 12/05/22 09:40) ANXIETY,AGITATION, severe aggitation HPI New Prob - Left Knee Pain HPI Details Marv is a 67 year old man with left knee OA, who presents with complaints of worsening pain. He complains of pain with daily activity, along with stiffness. He says his pain is tolerable however but he would like to discuss future treatment options He denies any prior treatment. He complains of some LBP issues, which he says worsened in the last week when he blew it out . He complains of numbness as well as shooting pain that radiates from his lower back into his right thigh. He does not follow with Pain Management and will be doing PT for this. He has a hx of right TKA, DOS: 04/23/22, which he says is doing well He has a hx of left YUNIER [place] [address] Sutherland. [facility] Medical History Routine medical exam Major depression, recurrent, chronic Major depression, recurrent, chronic Skin cancer CAD (coronary artery disease) Hypertension Hyperlipemia PAF (paroxysmal atrial fibrillation) History of cardioversion Hx of skin cancer, basal cell PTSD (post-traumatic stress disorder) BPH (benign prostatic hyperplasia) AAA (abdominal aortic aneurysm) Anxiety and depression Anemia Diverticulosis GERD (gastroesophageal reflux disease) Sleep apnea Surgical History Hx of blepharoplasty History of prostate surgery Hx of arthroscopy of left knee H/O vein stripping (~06/08/21) Hx of blepharoplasty History of prostate surgery Hx of arthroscopy of left knee H/O vein stripping (~06/08/21) Hx of cardiac catheterization H/O umbilical hernia repair History of incision and drainage Hx of tonsillectomy History of esophagogastroduodenoscopy (EGD) History of cardiac radiofrequency ablation Hx of colonoscopy Hx of right knee surgery History of total left hip arthroplasty Family History Father Esophageal cancer Mother Esophageal cancer Social History Household Members: Family Housing: House Are you a primary director of managed care to a significant other at home: No Do you presently have visiting nurse or other home services: No Patient Tobacco Use Status: Current everyday Tobacco user Smoking Start Date: 09/11/59 Tobacco use type: Cigarette Cigarettes Per Day: 2 Years Smoked: 25 e-Cigarette/Vaping Use: Never Used Second Hand Smoke Exposure: No Substance Use Type: Marijuana Advance Directives Date on File: 04/27/12 service: No Current occupational status: retired Cognitive needs: No Hearing needs: No Vision needs: No Review of Systems Const All systems reviewed & are unremarkable except as noted in HPI and below Physical Exam Vital Signs: BMI result Body Mass Index 37.9 Const General: no acute distress, alert and awake Orientation/consciousness: patient oriented x3 HEENT Head: Yes normocephalic and Yes atraumatic Eyes EOM: EOMs intact bilaterally Resp Effort & Inspection: normal respiratory effort and able to speak in complete sentences Cardio Jugular venous distension: no JVD Skin General skin exam: turgor normal Rashes: no rashes Neuro General: patient oriented x3 Extrem Other: Left Knee: Mild medial compartment TTP Psych Appearance: grossly normal Affect: normal affect Attitude: cooperative Results Reviewed Results Reviewed: I personally reviewed relevant radiographs. Left knee degenerative disease medial joint space compartment. Assessment & Plan Assessment & Plan (1) Osteoarthritis of left knee: Code(s): M17.12 - Unilateral primary osteoarthritis, left knee Plan: This is a 67 year old man with severe left knee OA. He has some pain & stiffness with activity, but says this is tolerable, and he just wanted more information at this time. He denies any prior treatment options and declined injections today. If his symptoms worsen he can follow up to discuss treatment. I recommend he stay active. Follow-up prn. (2) Lumbar back pain with radiculopathy affecting right lower extremity: Code(s): M54.16 - Radiculopathy, lumbar region Plan: Primary complaint today. Worse pain and numbness down right leg for ~2 weeks now. Does not see Pain Management and attends PT. (3) Status post total knee replacement, right: Code(s): Z96.651 - Presence of right artificial knee joint Plan: S/P right TKA, DOS: 04/23/22. He is doing very well, within expectation, and continues to remain active. Plan Scribed for Nathan Navarrete MD by Herminio Crowell, emergency medicine medical director, on 12/02/22 at 9:30 AM, EST. Orders: Orders XR pelvis 1-2V 12/02/22 M25.559 - Pain in unspecified hip XR hip LT 1V 12/02/22 M25.552 - Pain in left hip Coding Level of Care Code Est Pt Level 4 (83442) Diagnoses Osteoarthritis of left knee M17.12 Lumbar back pain with radiculopathy affecting right lower extremity M54.16 Status post total knee replacement, right Z96.651
[2022-12-02 08:56] VITALS: BMI 37.9
== END 2022-12-02 09:31 | disposition home or self-care (01) ==
PROVIDERS: PCP Nurse Practitioner Family; Visit Provider Orthopaedic Surgery
DX: M17.12 Unilateral primary osteoarthritis, left knee (principal); M54.16 Radiculopathy, lumbar region; Z96.651 Presence of right artificial knee joint
CPT/HCPCS: 99213

== ENCOUNTER 2022-12-02 08:52 | Outpatient (REF) | payer MEDICARE, SELFPAY | END 2022-12-02 08:53 | disposition home or self-care (01) | LOC: HO.HOSX 08:52 | PROVIDERS: PCP Nurse Practitioner Family; Visit Provider Orthopaedic Surgery | DX: M17.12 Unilateral primary osteoarthritis, left knee (principal); Z96.651 Presence of right artificial knee joint | CPT/HCPCS: 99212 ==

== ENCOUNTER 2022-12-05 09:32 | Outpatient (AMB) | payer MEDICARE, SELFPAY ==
--- NOTE | 2022-12-05 09:39 | MHC.OFFWIV ---
Intake Vital Signs 12/05/22 09:40 Height 6 ft 2 in Weight 294 lb BMI 37.7 BP 130/70 Blood Pressure Location Lt brachial Position Sitting Pulse 96 Pulse Source Pulse Oximeter Temp 98.6 F Temp Source Temporal Artery Scan Pulse Oximetry (%) 99 Oxygen Delivery Method Room Air Intake Visit Reasons: EST/uti(lobby) Intake Note: pt is here for c/o uti Patient Tobacco Use Status: Current everyday Tobacco user Allergies morphine [MORPHINE] Allergy (Intermediate, Verified 12/05/22 09:40) ANXIETY,AGITATION, severe aggitation Do you need a note to return to daycare/school/sports/work: Yes HPI HPI Comments History of Present Illness Details The patient presents Urgent Care for evaluation dysuria and urinary incontinence. He states that he has been having low back pain and episodes of urinary incontinence for the past 2 weeks. He admits to some discomfort when he is tempting to hold in his urine. He has contacted his PCP with regards to this was referred to Urology however has not seen urology for another month. In addition he was set up for physical therapy for his back. Patient complains of pain on his right lower back radiating down the back and side of his right leg. The patient denies nausea vomiting fever chills. [facility] Medical History Routine medical exam Major depression, recurrent, chronic Major depression, recurrent, chronic Skin cancer CAD (coronary artery disease) Hypertension Hyperlipemia PAF (paroxysmal atrial fibrillation) History of cardioversion Hx of skin cancer, basal cell PTSD (post-traumatic stress disorder) BPH (benign prostatic hyperplasia) AAA (abdominal aortic aneurysm) Anxiety and depression Anemia Diverticulosis GERD (gastroesophageal reflux disease) Sleep apnea Surgical History (Reviewed 11/05/22 @ 08:24 by Vijay Jaramillo [facility] Hx of blepharoplasty History of prostate surgery Hx of arthroscopy of left knee H/O vein stripping (~06/08/21) Hx of blepharoplasty History of prostate surgery Hx of arthroscopy of left knee H/O vein stripping (~06/08/21) Hx of cardiac catheterization H/O umbilical hernia repair History of incision and drainage Hx of tonsillectomy History of esophagogastroduodenoscopy (EGD) History of cardiac radiofrequency ablation Hx of colonoscopy Hx of right knee surgery History of total left hip arthroplasty Family History Father Esophageal cancer Mother Esophageal cancer Social History Household Members: Family Housing: House Are you a primary caregivers non medical to a significant other at home: No Do you presently have visiting nurse or other home services: No Patient Tobacco Use Status: Current everyday Tobacco user Smoking Start Date: 09/11/59 Tobacco use type: Cigarette Cigarettes Per Day: 2 Years Smoked: 25 e-Cigarette/Vaping Use: Never Used Second Hand Smoke Exposure: No Substance Use Type: Marijuana Advance Directives Date on File: 04/27/12 service: No Current occupational status: retired Cognitive needs: No Hearing needs: No Vision needs: No Review of Systems Const Denies weakness Eyes Reports no additional complaints ENT Denies dysphagia Card Reports no additional complaints, Denies dyspnea and Denies dyspnea on exertion Resp Denies cough, Denies hemoptysis, Denies dyspnea and Denies dyspnea on exertion GI Denies dysphagia Musc Reports back pain, Denies muscle weakness, Denies numbness and Denies tingling Neuro Denies focal weakness, Denies numbness, Denies tingling, Denies paresthesias and Denies weakness Physical Exam Vital Signs: Last Vital Signs Temp 98.6 F 12/05/22 09:40 Pulse 96 12/05/22 09:40 BP 130/70 12/05/22 09:40 Pulse Ox 99 12/05/22 09:40 Oxygen Delivery Method Room Air 12/05/22 09:40 BMI result Body Mass Index 37.7 Const General: healthy appearing and no acute distress Orientation/consciousness: patient oriented x3 Eyes General: appearance normal, both eyes and all related structures Pupils: Equal, round and reactive pupils present Resp Effort & Inspection: normal respiratory effort and able to speak in complete sentences General: Yes no CVA tenderness Back/Spine/Pelvis Back: no CVA tenderness Thoracic/Lumbar Spine: thoracic and lumbar spine normal to inspection and thoraco-lumbar ROM limited Neuro General: patient oriented x3 and Normal light touch and pain sensation Cranial nerves: Yes Equal, round and reactive pupils present Results AMB Urinalysis, Automated UA Leukoctes 500 Bo/uL Last Edit by Pal Hudson CMA on 12/05/22 09:50 UA Nitrite Negative Last Edit by Pal Hudson, RUTH on 12/05/22 09:50 UA Urobilinogen 0.2 mg/dL Last Edit by Pal Hudson, RUTH on 12/05/22 09:50 UA Protein 0 mg/dL Last Edit by Pal Hudson, RUTH on 12/05/22 09:50 UA pH 6.0 Last Edit by Pal Hudson, RUTH on 12/05/22 09:50 UA Blood 80 Graham/uL Last Edit by Pal Hudson, RUTH on 12/05/22 09:50 UA Specific [place] 1.015 Last Edit by Pal Hudson CMA on 12/05/22 09:50 UA Ketone Negative Last Edit by Pal Hudson, RUTH on 12/05/22 09:50 UA Bilirubin 0 mg/dL Last Edit by Pal Hudson, RUTH on 12/05/22 09:50 UA Glucose 0 mg/dL Last Edit by Pal Hudson CMA on 12/05/22 09:50 Results Reviewed Results Reviewed: Laboratory Last Values Urine pH (Auto) 6.0 12/05/22 09:49 Specific [place] (Auto) 1.015 12/05/22 09:49 Urine Protein (Auto) 0 mg/dL 12/05/22 09:49 Glucose (UA)(Auto) 0 mg/dL 12/05/22 09:49 Urine Ketones (Auto) Negative 12/05/22 09:49 Urine Blood (Auto) 80 Graham/uL 12/05/22 09:49 Urine Nitrite (Auto) Negative 12/05/22 09:49 Urine Bilirubin (Auto) 0 mg/dL 12/05/22 09:49 Urine Urobilinogen (Auto) 0.2 mg/dL 12/05/22 09:49 Leukocyte Esterase (Auto) 500 Bo/uL 12/05/22 09:49 Assessment & Plan Assessment & Plan (1) Urinary incontinence: Code(s): R32 - Unspecified urinary incontinence Plan The patient's UA is consistent with signs of infection and will send prescription for Bactrim to his pharmacy. In addition with the ongoing low back pain and incontinence this is concerning will obtain a stat MRI. This has been ordered for the patient by his PCP. Patient is aware will try get this scheduled today. Orders: Orders AMB Urinalysis Automated Today Z13.9 - Encounter for screening, unspecified Medications: New sulfamethoxazole-trimethoprim 800-160 mg (Bactrim DS) 1 tab PO BID 7 days 14 tabs 0RF Coding Level of Care Code Est Pt Level 3 (31704) Diagnoses Urinary incontinence R32
[2022-12-05 09:40] VITALS: BP 130/70; PULSE 96; TEMP 37; O2SAT 99; BMI 37.7
== END 2022-12-05 10:42 | disposition home or self-care (01) ==
PROVIDERS: PCP Nurse Practitioner Family; Visit Provider Emergency Medicine
DX: R32 Unspecified urinary incontinence (principal)
CPT/HCPCS: 81003; 99213

== ENCOUNTER 2022-12-09 07:00 | Outpatient (RCR) | payer MEDICARE, SELFPAY ==
--- NOTE | 2022-12-03 09:44 | MHC.PT.EP ---
[facility] [place] [facility] [place] [facility] [place] [facility] [address] Aletha Burrell [address] [phone] F: [phone] F: [phone] F: [phone] F: [phone] Physical Therapy Plan of Care Date of Evaluation: 12/03/22 Date of Surgery: n/a Diagnosis: radiculopathy, lumbar Assessment: Patient is a 67 year old female presenting to PT with complaints of pain in his low back. Pt reports onset of pain began about 10 days ago due to lifting something when doing yardwork. He presents today with impairments in pain, lumbar ROM, core strength, hip strength, increase tissue density. Pt's current occupation is retired, with baseline physical activities including yardwork, ADLs, sitting, sleeping, ambulating. 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 Clinical presentation today is most consistent with signs and sx associated with low back pain and pt will benefit from skilled PT 2 week x 4 weeks to address the following problems and impairments noted upon evaluation: pain, lumbar ROM, core strength, hip strength, increase tissue density. These problems limit the patient with the following functional activities: yardwork, ADLs, sitting, sleeping, ambulating. The prescribed treatment plan of care is medically necessary. Co-morbidities of afib, hx skin cancer were identified and taken into considerations of plan of care. Pt was educated on HEP, role of PT, prognosis, POC. Frequency and Duration: The patient will be seen 2 x week x 4 weeks Short Term Goals: Pt will demonstrate centralization of pain in 2 weeks. Pt will demonstrate lumbar ROM in available range without pain. Pt will demonstrate improved hip MMT strength by 1/3 grade in 2 weeks for improved lumbopelvic stability. Manager Retail Sales Goals: Pt will demonstrate improved Ginette score by 10% in 4 weeks for improved functional mobility. Pt will demonstrate ability to complete yard work with min to no pain in 4 weeks for return to PLOF. Pt will demonstrate ability to sleep through the night with min to no pain in 4 weeks for return to PLOF. Treatment Plan: Modalities to reduce pain, spasms and effusion. Manual therapy to restore motion and function. Therapeutic exercise to improve strength and flexibility. Neuromuscular re-education for posture and balance. Therapeutic activities to return to functional activities of daily living. Electronically signed by: Erica Tony PT, DPT, ATC Please sign and return to therapist. Thank you for your referral.
--- NOTE | 2022-12-13 07:22 | MHC.PT.DC ---
[facility] [place] [facility] [place] [facility] [place] [facility] [address] Aletha Burrell 140 [facility] [phone] F: [phone] F: [phone] F: [phone] F: [phone] Physical Therapy Discharge Report Diagnosis: radiculopathy, lumbar Date of Surgery: n/a Date of Evaluation: 12/03/22 Date of Discharge: 12/13/22 Treatments to Date: 2 Cancellations to Date: 1 No Shows to Date: 0 Discharge Status: Physician Discontinued Tx Discharge Summary: Pt called stating he has to get surgery and therefore is to be d/c. Electronically signed by: Erica Tony, PT, DPT, ATC Please sign and return to therapist. Thank you for your referral.
== END 2022-12-13 07:24 | disposition home or self-care (01) ==
LOC: HO.PTCHIC 07:00
PROVIDERS: PCP Nurse Practitioner Family; Visit Provider Nurse Practitioner Family
DX: M54.16 Radiculopathy, lumbar region (principal)
CPT/HCPCS: 97110; 97140; 97162

== ENCOUNTER 2022-12-11 09:39 | Outpatient (AMB) | payer MEDICARE, SELFPAY ==
--- NOTE | 2022-12-11 09:53 | A.SPINEOV_ITS ---
Intake Intake Visit Reasons: nerve root & plexus Intake Note: Mr. Minaya is here today c/o low back pain. MRI done @ [facility]. 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 He is a pleasant 67-year-old male who comes in today with a chief complaint of severe back pain radiating into his right leg. He describes the radiation as 10/10 pain and states that it starts in his low back wraps around his anterior / lateral thigh, goes over the top of his knee, and terminates over the anterior tibialis just before the ankle. He reports that this pain/ radiation is acute in onset, starting after he was working in the [employer] 18 days ago and moved a heavy cement block. He states that after the incident he went inside, sat down in his reclining chair for period of time, then abruptly stood up and felt a sharp 10/10 pain in his low back shooting down his right leg. He has tried several qvns-pmt-qjuucjn remedies including Tylenol, ibuprofen, heat, ice, xyud-grn-dtykxls pain patches all without alleviation of symptoms. He also recently tried going to physical therapy last week but states it was too painful for him to continue going. He reports that his pain continues to increase as the days progressed and is now accompanied by numbness over the anterior thigh and anterior tibialis. Of note he also reports left-sided radicular symptoms but states that this is been with him for years and does not feel that is an issue at this time. His right-sided symptoms are much more severe and pertinent at this time. PMH: AFib (on Eliquis) with 2 previous cardiac ablation procedures, coronary artery disease, hypertension, major depression, varicose veins, osteoarthritis, anxiety, depression. R sideed total knee, Left hip replacement. Social hx: Patient does not smoke, reports no substance use. Medications: Acetaminophen, Eliquis, cyclobenzaprine, Valium, multaq, magnesium, lisinopril, omeprazole, rosuvastatin, sertraline. Allergies: morphine. Physical exam: The patient has 5/5 strength in his upper and lower extremities. He does have numbness over his anterior right thigh and right tibialis. The rest of his sensation is grossly intact. Reflexes 1+ diminished in R patella, but he reports recent TKA. The patient ambulates well with the assistance of a cane, rises from a seated position without difficulty. (-) straight leg raise bilaterally, (-) clonus, (-) Knight's. Imaging review: MRI completed at [facility] shows significant posterior disc protrusion at L3-4, with extruded fragment compressing on central canal and right-sided nerve root. Severe central canal stenosis at this level. There is also some evidence of osteophyte bridging around a likely old disc protrusion at L5-S1, with associated left-sided exiting nerve root foraminal stenosis. Impression: Marv is a 67-year-old male who comes in today with a chief complaint of 18 days of severe worsening low back pain with radiation into his right side and accompanying numbness over the anterior side of his right leg. He reports that this severe pain and numbness is secondary to lifting a concrete block when doing yard work. He denies any popping sensation, but does endorse that he stood up shortly after completing his yard work and fell 10/10 pain in his low back with radiation into his right leg. He has tried all possible vykp-sop-nhfetqo remedies, and is attempted physical therapy and nothing makes his symptoms any better. He now reports that he is unable to sleep properly, can exercise, cannot do yard work, and is having difficulty completing his ADLs. His is been waking up with multiple times per night to help address his pain. We extensively discussed the healing course of disc herniations. Due to the worsening nature of his symptoms and his disclosed need for resolution, accompanied by neurological deficits (numbness), Dr. Rondon tentatively put him on our surgical schedule for 12/24/2022 for a left-sided L3-4 microdiskectomy. Marv was strongly encouraged to reach out to our office over the course of the next 2 weeks if his symptoms begin to improve at all so we can either delay the surgery or cancel the surgery if the disc resorbs. Marv was given risk and benefits of surgery including but not limited to infection, hematoma, nerve injury, durotomy, weakness, bowel/bladder injury, persistent pain, as well as the option to continue with conservative treatment and patient wishes to proceed with surgery. He is aware they should stop his Eliquis 3 days before surgery, and should stop NSAIDs 7 days prior to surgery. All questions were answered to the best of our ability. If there is anything about this patients medical history that we have overlooked or concerns you have about us proceeding with surgery we would appreciate any input you can offer. Thank you for allowing us to care for your patient. The total time spent with this visit with this patient was 60 minutes reviewing history, physical exam, MRI imaging review, surgical scheduling, and implementation of treatment plan or further diagnostic testing. Ricky Rondon MD,PhD [facility] Coding Level of Care Code New Pt Level 5 (66781) Diagnoses Lumbar back pain with radiculopathy affecting right lower extremity M54.16
== END 2022-12-11 11:30 | disposition home or self-care (01) ==
PROVIDERS: PCP Nurse Practitioner Family; Referring Provider Nurse Practitioner Family; Visit Provider Physician Assistant
DX: M54.16 Radiculopathy, lumbar region (principal)
CPT/HCPCS: 99205; 99215

== ENCOUNTER → 2022-12-11 09:39 | Outpatient (BNVA) | payer MEDICARE, SELFPAY | PROVIDERS: PCP Nurse Practitioner Family; Visit Provider Physician Assistant | DX: M51.16 Intervertebral disc disorders with radiculopathy, lumbar region (principal) | CPT/HCPCS: 99202 ==

== ENCOUNTER 2022-12-24 06:53 | Day surgery (SDC) | payer MEDICARE, SELFPAY ==
[2022-12-20 12:00] VITALS: BP 140/67; PULSE 74; RESP 16; O2SAT 97; BMI 38.8
--- NOTE | 2022-12-23 13:38 | HO.ANESPROP2 ---
Documented by User: Jessa Oliveira NP 12/23/22 13:45 HPI - Anesthesia Eval Consult details Narrative: 67yo M for Left L3-4 Microlumbar discectomy PAT 12/20/[address] Marcus Higgins for afib s/p TKA 04/2022 with GA-LMA 5 (cardiac optimized prior) Follows [facility] cardiology. Last office visit 02/2022. [facility] Active Problems Active Problems: All Active Problems (Updated 12/09/22 @ 08:33 by Vijay Jaramillo, [facility]) Lumbar canal stenosis (Acute) Nerve root compression (Acute) Cauda equina syndrome (Acute) Urinary incontinence (Acute) Osteoarthritis of left knee (Acute) Lumbar back pain with radiculopathy affecting right lower extremity (Acute) Status post total knee replacement, right (Acute) Lower back pain (Acute) Encounter for annual wellness visit (AWV) in Medicare patient (Acute) Depression (Acute) Major depression, recurrent, chronic (Acute) Screening PSA (prostate specific antigen) (Acute) Varicose veins of both lower extremities (Acute) Varicose veins of left lower extremity with inflammation (Acute) Abdominal discomfort (Acute) Encounter for subsequent annual wellness visit (AWV) in Medicare patient (Acute) Tubular adenoma of colon (Acute) Low back pain (Acute) Osteoarthritis of right knee (Acute) Anxiety with depression (Acute) Urinary urgency (Acute) Thoracic aortic aneurysm (Acute) Pre-op evaluation (Acute) Pre-op evaluation (Acute) Thoracic aortic aneurysm (Acute) Urinary urgency (Acute) Anxiety with depression (Acute) Osteoarthritis of right knee (Acute) Low back pain (Acute) Tubular adenoma of colon (Acute) Encounter for subsequent annual wellness visit (AWV) in Medicare patient (Acute) Abdominal discomfort (Acute) Varicose veins of left lower extremity with inflammation (Acute) Varicose veins of both lower extremities (Acute) Screening PSA (prostate specific antigen) (Acute) Depression (Acute) Encounter for annual wellness visit (AWV) in Medicare patient (Acute) Lower back pain (Acute) Major depression, recurrent, chronic (Acute) Leg mass (Acute) Hypertension (Acute) CAD (coronary artery disease) (Acute) Skin lesion (Acute) PAF (paroxysmal atrial fibrillation) (Acute) Past Medical History Medical History Routine medical exam Major depression, recurrent, chronic Major depression, recurrent, chronic Skin cancer CAD (coronary artery disease) Hypertension Hyperlipemia PAF (paroxysmal atrial fibrillation) History of cardioversion Hx of skin cancer, basal cell PTSD (post-traumatic stress disorder) BPH (benign prostatic hyperplasia) AAA (abdominal aortic aneurysm) Anxiety and depression Anemia Diverticulosis GERD (gastroesophageal reflux disease) Sleep apnea Family History Family History Father Esophageal cancer Mother Esophageal cancer Family history of problems with anesthesia: No Surgical History Surgical History (Reviewed 11/05/22 @ 08:24 by Vijay Jaramillo RN [facility]) Hx of blepharoplasty History of prostate surgery Hx of arthroscopy of left knee H/O vein stripping (~06/08/21) Hx of blepharoplasty History of prostate surgery Hx of arthroscopy of left knee H/O vein stripping (~06/08/21) Hx of cardiac catheterization H/O umbilical hernia repair History of incision and drainage Hx of tonsillectomy History of esophagogastroduodenoscopy (EGD) History of cardiac radiofrequency ablation Hx of colonoscopy Hx of right knee surgery History of total left hip arthroplasty History of Problems with Anesthesia: No Social History Social History Household Members: Family Housing: House Are you a primary home health caregiver to a significant other at home: No Do you presently have visiting nurse or other home services: No Patient Tobacco Use Status: Current everyday Tobacco user Smoking Start Date: 09/11/59 Tobacco use type: Cigarette Cigarettes Per Day: 3 Years Smoked: 25 e-Cigarette/Vaping Use: Never Used Second Hand Smoke Exposure: No Use of substances other than those prescribed or required for medical reasons: Yes Substance Use Type: Marijuana Substance Use Frequency: Weekly Have you been hit, kicked, punched, or otherwise hurt by someone within the past year? If so, by whom?: No Are you DNR?: No Advance Directives: Yes Advance Directives Information Provided: Yes Advance Directives on File: No Advance Directives Date on File: 04/27/12 Recently lost weight without trying: No Eating poorly because of decreased appetite: No Nutrition Risks: No Nutritional Risk service: No Current occupational status: retired Cognitive needs: No Hearing needs: No Vision needs: No Meds Allergies Allergy/AdvReac Type Severity Reaction Status Date / Time morphine [MORPHINE] Allergy Severe severe Verified 12/20/22 12:00 aggitation Home Medications Medication Instructions Recorded Confirmed Last Taken Type lisinopril 10 mg tablet 10 mg PO DAILY 11/24/19 12/20/22 04/23/22 History omeprazole 20 mg tablet,delayed 20 mg PO DAILY 11/24/19 12/20/22 Unknown History release multivitamin 1 tab PO DAILY 09/27/20 12/20/22 Unknown History omega-3 fatty acids 1,000 mg 1,000 mg PO BID 09/27/20 12/20/22 Unknown History capsule (Fish Oil Concentrate) apple cider vinegar 500 mg tablet 500 mg PO BID 09/12/21 12/20/22 Unknown History magnesium 250 mg tablet 250 mg PO BEDTIME 09/12/21 12/20/22 Unknown History rosuvastatin 20 mg tablet 20 mg PO QAM 04/11/22 12/20/22 Unknown History Exam Exam Date and Time: December 23, 2022 1338 Height,Weight and Vital Signs: Height 6 ft 2 in Weight 136.985 kg Last Vital Signs Pulse 74 12/20/22 12:00 Resp 16 12/20/22 12:00 BP 140/67 H 12/20/22 12:00 Pulse Ox 97 12/20/22 12:00 O2 Del Method Room Air 12/20/22 12:00 Pertinent Lab Results Pertinent Lab Results: Laboratory Tests 11/24/22 04:58 WBC 5.8 Hgb 12.6 L Hct 37.2 L Plt Count 202 Sodium 140 Potassium 4.4 Chloride 106 Carbon Dioxide 25 BUN 15 Creatinine 0.75 Narrative Narrative: EKG 08/2022 NSR NM kush perf SPECT rest & str 03/2022 Impression: 1. Myocardial perfusion imaging study shows no clear evidence of any ischemia or infarction. Probably normal perfusion. 2. Gated LVEF is 62% during stress and 54% during rest. 3. Transient ischemic dilatation not present. EKG component of the test reported separately. ECHO 2021 Conclusions: - The left ventricular systolic function is normal. The calculated ejection fraction is 59% by biplane method. - There is mild aortic valve stenosis. - There is mild dilatation of the sinuses of Valsalva measuring 4.43 cm and mild dilatation of the ascending aorta measuring 4.40 cm. Assessment and Plan Assessment Anesthesia Assessment: Chart Reviewed Final Anesthetic Review Family History of Problems with Anesthesia: No History of Problems with Anesthesia: No Documented by User: Allie Benz MD 12/24/22 08:51 [facility] Past Medical History Medical History Routine medical exam Major depression, recurrent, chronic Major depression, recurrent, chronic Skin cancer CAD (coronary artery disease) Hypertension Hyperlipemia PAF (paroxysmal atrial fibrillation) History of cardioversion Hx of skin cancer, basal cell PTSD (post-traumatic stress disorder) BPH (benign prostatic hyperplasia) AAA (abdominal aortic aneurysm) Anxiety and depression Anemia Diverticulosis GERD (gastroesophageal reflux disease) Sleep apnea Family History Family History Father Esophageal cancer Mother Esophageal cancer Surgical History Surgical History Hx of blepharoplasty History of prostate surgery Hx of arthroscopy of left knee H/O vein stripping (~06/08/21) Hx of blepharoplasty History of prostate surgery Hx of arthroscopy of left knee H/O vein stripping (~06/08/21) Hx of cardiac catheterization H/O umbilical hernia repair History of incision and drainage Hx of tonsillectomy History of esophagogastroduodenoscopy (EGD) History of cardiac radiofrequency ablation Hx of colonoscopy Hx of right knee surgery History of total left hip arthroplasty Social History Social History Household Members: Family Housing: House Are you a primary home health caregiver to a significant other at home: No Do you presently have visiting nurse or other home services: No Patient Tobacco Use Status: Current everyday Tobacco user Smoking Start Date: 09/11/59 Tobacco use type: Cigarette Cigarettes Per Day: 3 Years Smoked: 25 e-Cigarette/Vaping Use: Never Used Second Hand Smoke Exposure: No Use of substances other than those prescribed or required for medical reasons: Yes Substance Use Type: Marijuana Substance Use Frequency: Weekly Have you been hit, kicked, punched, or otherwise hurt by someone within the past year? If so, by whom?: No Are you DNR?: No Advance Directives: Yes Advance Directives Information Provided: Yes Advance Directives on File: No Advance Directives Date on File: 04/27/12 Recently lost weight without trying: No Eating poorly because of decreased appetite: No Nutrition Risks: No Nutritional Risk service: No Current occupational status: retired Cognitive needs: No Hearing needs: No Vision needs: No Meds Allergies Allergy/AdvReac Type Severity Reaction Status Date / Time morphine [MORPHINE] Allergy Severe severe Verified 12/20/22 12:00 aggitation Home Medications Medication Instructions Recorded Confirmed Last Taken Type lisinopril 10 mg tablet 10 mg PO DAILY 11/24/19 12/20/22 04/23/22 History omeprazole 20 mg tablet,delayed 20 mg PO DAILY 11/24/19 12/20/22 Unknown History release multivitamin 1 tab PO DAILY 09/27/20 12/20/22 Unknown History omega-3 fatty acids 1,000 mg 1,000 mg PO BID 09/27/20 12/20/22 Unknown History capsule (Fish Oil Concentrate) apple cider vinegar 500 mg tablet 500 mg PO BID 09/12/21 12/20/22 Unknown History magnesium 250 mg tablet 250 mg PO BEDTIME 09/12/21 12/20/22 Unknown History rosuvastatin 20 mg tablet 20 mg PO QAM 04/11/22 12/20/22 Unknown History Exam Airway Mallampati Class: III TM Dist: >3cm Neck ROM: Full Denture: Upper Loose/Missing/Broken Teeth: Yes and Lower Assessment and Plan Assessment Anesthesia Assessment: Anesthesia Plan Discussed Final Anesthetic Review NPO: Yes ASA Class: III Final Preanesthetic Review: No Changes in Pt Med Stat, Meds/Allgs Chart Reviewed, Consent Obtained/Reviewed and Anes Risks/Benef Reviewed Patient Risk: Intermediate Procedure Risk: Intermediate Anesthetic Plan Anesthetic Plan: GA Disposition: Standard PACU
[2022-12-24] VITALS (10 sets, daily range): BP systolic 142–172; BP diastolic 68–96; PULSE 70–77; RESP 12–21; TEMP 36.7–37.2; O2SAT 96–99
--- NOTE | ~2022-12-24 | FL_ITS ---
EXAMINATION: XR FLUOROSCOPY WITH IMAGES CLINICAL INFORMATION: L3-L4 microlumbar discectomy. COMPARISON: None available. TECHNIQUE: Fluoroscopy Supervised By: Dr. Benjamin Rondon. Fluoroscopy Time: 0.0 minutes. Cumulative Dose: 4.55 mGy. DAP: 1.09 Gycm2. Images: 1. FINDINGS: Image demonstrates surgical instruments and probe posterior to the L3-L4 disc space FL/FL guidance in OR IMPRESSION: Fluoroscopy guidance for lumbar spine surgery
--- NOTE | 2022-12-24 07:03 | MHC.SHP ---
Pre-Procedural Eval Section A Date of Service: 12/24/22 Section B Chief Complaint: Radiculopathy, lumbar region Allergies: Allergies Allergy/AdvReac Type Severity Reaction Status Date / Time morphine [MORPHINE] Allergy Severe severe Verified 12/20/22 12:00 aggitation Review of Systems Sugical H&P ROS: Negative: Constitution, Cardiovascular, Respiratory, Neurological, Psychiatric, Hem-Onc, Allergic/Immunologic, Gastrointestinal, Genitourinary, Musculoskeletal, Integumentary, Endocrine and Eyes/Ears/Nose/Throat Exam Surgical H&P Exam: Not Evaluated: HEENT, Not Evaluated: Heart, Not Evaluated: Lungs, Not Evaluated: Extremities, Not Evaluated: Abdomen, Not Evaluated: Skin and Not Evaluated: Neurological Plan Diagnosis/Plan: Unchanged I have reviewed the history and physical and performed a pertinent physical examination on my patient. No changes have occurred unless specified. Plan remains the same, left L3-4 microdiskectomy. Time Spent With Patient Time: Total time managing care of this patient today _10___ minutes.
[2022-12-24] MEDS: Acetaminophen 1,000 MG/100 ML PIGGYBACK 400 MG IV (07:35)
[2022-12-24] MEDS: methocarbamoL 750 MG TABLET PO (07:38)
[2022-12-24] MEDS: Gabapentin 300 MG CAPSULE PO (07:38)
[2022-12-24] MEDS: Lactated Ringers 1,000 ML 100 ML IVCONT (10:07)
--- NOTE | 2022-12-24 11:41 | P.DS_ITS ---
DS: Providers Provider Date of Service: 12/24/22 Date of discharge: 12/24/22 Primary care physician: LAUREANO Roca Admitting clinician: Benjamin Rondon DS: Diagnosis Discharge Diagnosis (1) Lumbar canal stenosis: Status: Acute DS: Summary Time Attestation Discharge coordination time: Less than 30 minutes Quality: Safe Use of Opioids Does Pt have an Active Cancer Diagnosis on the Problem List?: No Quality: Stroke Does the patient have a stroke diagnosis?: No Physical Exam Vital Signs: Vital Signs: Last Vital Signs Temp 98.9 F 12/24/22 07:43 Pulse 73 12/24/22 07:43 Resp 18 12/24/22 07:43 BP 147/95 H 12/24/22 07:43 Pulse Ox 96 12/24/22 07:43 O2 Del Method Room Air 12/24/22 07:43 BMI result Body Mass Index 38.8 Discharge Plan Discharge Patient Disposition: Home, Self-Care Referrals: Vijay Jaramillo FNP-BC [Primary Care Provider] - 1 Week Discharge Medications: New docusate sodium [Colace] 100 mg capsule 100 mg PO BID Qty: 20 0RF oxycodone 5 mg tablet 5 mg PO Q4H PRN (Reason: pain) Qty: 30 0RF Rx Instructions: Partial Fill upon patient request. Continued (DME) CPAP See Rx Instructions .Route .MEDSUPPLY Qty: 1 0RF Rx Instructions: As directed, for sleep apnea (DME) walker Misc See Rx Instructions .MEDSUPPLY Qty: 1 0RF Rx Instructions: Folding Front wheeled walker sertraline 100 mg tablet 100 mg PO QAM Qty: 90 1RF lisinopril 10 mg Tablet 10 mg PO DAILY omeprazole 20 mg Tablet,Delayed Release (Dr/Ec) 20 mg PO DAILY rosuvastatin 20 mg tablet 20 mg PO QAM acetaminophen 325 mg Tablet 650 mg PO Q6H PRN (Reason: Pain, Mild (Pain Scale 1-3)) 30 Days Qty: 240 0RF omega-3 fatty acids [Fish Oil Concentrate] 1,000 mg capsule 1,000 mg PO BID Hold Instructions: Resume on 05/27/22. multivitamin Tablet 1 tab PO DAILY magnesium 250 mg tablet 250 mg PO BEDTIME apple cider vinegar 500 mg tablet 500 mg PO BID Multaq 400 mg tablet 400 mg PO BID 90 Days Qty: 180 3RF Held Eliquis 5 mg tablet 5 mg PO BID 90 Days Qty: 180 3RF Hold Instructions: Resume on 12/27/22. Discharge Orders: Discharge Order (Routine); Ordered 12/24/22 Ordered By: Marv Melendrez Diet: Advance to usual diet Activity on Discharge: As tolerated Activity Restrictions/Additional Instructions: After your spinal surgery we ask you to observe the following restrictions/guidelines: YOU MAY RESTART ELIQUIS 3 DAYS AFTER SURGERY Activity: It is normal to feel some discomfort as you increase your activity, but that will improve with time. We ask you avoid heavy lifting or acitivities that cause pain. As a general rule, 8lbs is a safe limit for lifting right after surgery. Walk as much as you feel comfortable but not to exhaustion. You will feel extra tired the first few days after surgery. Stay well hydrated. It is OK to walk up and down stairs You may return to driving when you are off narcotics (such as vicodin, oxycodone, dilaudid, etc), and you are back to normal functional capacity. If yo u have any concerns please check with office before driving. Return to work is specific to each patient and each surgery, so please speak with your doctor/PA at first follow up. Please bring paperwork such as FMLA at that time if you need it filled out. Medications: For optimum pain control, it is best to start with a combination of 500 mg of Tylenol every 4 hours with 600 mg of Motrin every 8 hours, and use narcotics as needed in between for breakthrough pain. We will give you a short supply of narcotics after surgery (usually one weeks worth). If you need more please call the office but do not use more than prescribed. You will need to give our office 48 hours notice if you need narcotics refilled and we do not fill narcotics on weekends or evenings. If you are on a narcotic, it is a good idea to take a stool softener such as colace or senna to avoid constipation If you take blood thinner such as aspirin, Plavix, Coumadin, Effient, Eliquis etc for conditions such as Afib, DVT, Pulmonary embolus, coronary disease, stents etc please speak with your surgeon about specific details as to when you can resume these medications. You can resume NSAIDs on post op day 1 (eg: Motrin, Naproxen, etc). Follow up: Please call the office, , after surgery to arrange a 3 week follow up for wound check. Wound Care: You may remove your dressing on the first day after surgery. You may leave open to air. Please do not remove the steri strips underneath. they will fall off on their own in one week. IT IS NORMAL FOR THE WOUND TO OOZE OR BE BLOODY FOR A FEW DAYS AFTER SURGERY. IF THIS HAPPENS JUST PLACE NEW DRESSING OVER IT TO AVOID STAINING CLOTHES. You may shower on post op day # 1 We ask that you do not let the water soak the wound. If it does get wet, just towel dry lightly. Please do not scrub your incision or place any type of chemical/ointment on the wound. No tub baths, pools or jacuzzis for one month. If you have any leaking or redness from your wound, or fevers, please call office
--- NOTE | 2022-12-24 11:51 | W.PM.OPN ---
Operative Note Operative Note Date of Service: 12/24/22 Narrative: Preoperative diagnosis: Right L4 lumbar radiculopathy due to disc herniation Postoperative diagnosis: Same Procedure: Right L3-4 lumbar microdiskectomy with microscope Surgeon: Benjamin Rondon MD, PhD Cement Tile Maker: Marv MOCK This 67-year-old male suffering from severe right lumbar radiculopathy due to a large extruded disc herniation L3-4 behind the body of L4 compromising the right L4 nerve root. The patient was offered a lumbar microdiskectomy to decompress the nerve root. The procedure complications were explained. The patient was consented. The patient was brought to the operating room and endotracheally intubated. The patient was turned in a prone position on the Manan frame. Prepping and draping was done followed by time-out. A mid lumbar incision was made followed by release of the paravertebral muscles on the right side to expose the L3-4 interspace. An intraoperative x-rays obtained to confirm the correct level. The microscope was brought in. A L4 laminotomy was done followed by opening of the flavum ligament. The L4 nerve root was identified. The nerve root was luxated dorsally due to a large extruded fragment sitting under the nerve root. I maneuvered with a nerve hook under the L4 nerve root and retrieved several fragments. Then I used a straight and curved pituitary to retrieve 3 very large fragments after which the nerve root returned to its original anatomical position. Re-examination of the area revealed no more fragments. Hemostasis was done. The microscope was removed. Marcaine was injected intramuscularly.The incision was closed in two layers. Steri-Strips used to approximate seizure. An op-site were taken there was used to cover the incision. All sponge and needle counts were correct. Patient was extubated and transported in stable condition to recovery room. this procedure was done with the aid of a physician bricklayer's assistant who performed the initial exposure until the microscope was brought in and performed the closure of the incision. Anesthesia: General Blood loss: 10 mL Complications: None Specimen: None Disposition: Discharge home
[2022-12-24] MEDS: oxyCODONE HCl Immed Release 5 MG TABLET PO (12:28)
[2022-12-24] MEDS: fentaNYL citrate/PF 100 MCG/2 ML VIAL 50 MCG IVPUSH (12:36)
== END 2022-12-24 14:41 | disposition home or self-care (01) ==
PROVIDERS: PCP Nurse Practitioner Family; Visit Provider Neurological Surgery
PROC: (CPT 63030; principal; 2022-12-24 09:20)
DX: M54.16 Radiculopathy, lumbar region (principal); M48.061 Spinal stenosis, lumbar region without neurogenic claudication; M54.50 Low back pain, unspecified; R20.0 Anesthesia of skin; I83.10 Varicose veins of unspecified lower extremity with inflammation; I10 Essential (primary) hypertension; I48.91 Unspecified atrial fibrillation; I25.10 Atherosclerotic heart disease of native coronary artery without angina pectoris; F33.2 Major depressive disorder, recurrent severe without psychotic features; Z79.01 Long term (current) use of anticoagulants; Z79.899 Other long term (current) drug therapy; Z99.89 Dependence on other enabling machines and devices; Z88.5 Allergy status to narcotic agent; Z96.651 Presence of right artificial knee joint; Z96.642 Presence of left artificial hip joint
CPT/HCPCS: 63030; J0131; J0690; J1170; J1885; J2250; J2405; J2704; J3010

== ENCOUNTER → 2022-12-24 06:53 | Outpatient (BNV) | payer MEDICARE, SELFPAY | PROVIDERS: PCP Nurse Practitioner Family; Visit Provider Physician Assistant | DX: M48.061 Spinal stenosis, lumbar region without neurogenic claudication (principal) | CPT/HCPCS: 63030; 99499 ==

== ENCOUNTER → 2023-01-14 07:41 | Outpatient (REF) | payer MEDICARE, SELFPAY ==
--- NOTE | 2023-01-14 07:46 | CA_ITS ---
Transthoracic Echocardiogram Patient (Last, First, Middle): Marv Minaya E Gender: Male Date of : 1955 Age: 67 Procedure Date: 01/14/2023 Procedure Type: Transthoracic Echocardiogram Location: OP Height: 187.96 cm Weight: 133.81 kg BSA: 2.56 m2 Heart Rate: bpm BP: 140 / 90 mmHg Junior Sales Representative: Referring MD: Cristopher Schuster MD Symptoms: I71.20 - Thoracic aortic aneurysm, without rupture, unspecified Study Quality: Technically Difficult but fair ECG Rhythm: Sinus Conclusions: - The left ventricular systolic function is normal. The calculated ejection fraction is 63% by biplane method. - There is mild aortic valve stenosis. - There is mild dilatation of the ascending aorta measuring 4.20 cm. Findings Left Ventricle Normal left ventricular cavity size. The left ventricular systolic function is normal. The calculated ejection fraction is 63% by biplane method. Regional wall motion abnormalities can not be excluded due to suboptimal endocardial definition. Evidence suggests grade I (mild) diastolic dysfunction. Probable basal septal hypertrophy but not well visualized. Right Ventricle Normal right ventricular cavity size and systolic function. Atria The left atrium is mildly dilated. The right atrium is normal in size. Aortic Valve There is mild calcification of the aortic valve. There is mild aortic valve stenosis. The peak aortic velocity is 2.44 m/s with a calculated peak gradient of 24 mmHg. The mean gradient is 13 mmHg. The aortic valve area is 1.97 cm2. There is trace (trivial) aortic valve regurgitation. Mitral Valve The mitral valve appears normal. There is no mitral valve regurgitation. There is no mitral valve stenosis. Pulmonic Valve The pulmonic valve is likely normal. Tricuspid Valve There is trace tricuspid valve regurgitation. There is no evidence of pulmonary hypertension. Great Vessels There is mild dilatation of the ascending aorta measuring 4.20 cm. Venous The inferior vena cava was not well visualized. Pericardium/Pleural There is no evidence of pericardial effusion. Prior Study Comparison Changes noted compared to prior study dated: 08/16/2019. Mild aortic stenosis present. Measurements M-Mode Liner Measurements Normals - Women/Men Ao Root: 4.20 2.0-3.8 cm 2D Linear Measurements IVSd: 1.49 0.6-0.9/0.6-1.0 cm LVIDd: 4.74 3.9-5.3/4.2-5.9 cm LVIDd Index: 1.85 2.4-3.2/2.2-3.1 cm/m2 LVIDs: 3.02 2.0-3.6 cm LVPWd: 1.45 0.7-1.1 cm Ao Root: 4.20 2.1-3.5 cm LA Diam: 4.30 2.7-3.8/3.0-4.0 cm LAIDs Index: 1.68 1.5-2.3 cm/m2 LV Mass: 360.35 67-162/88-224 g LV Mass Index: 140.76 43-95/49-115 g/m2 LVOT Diam: 2.10 3.0+(-)1.3 cm 2D Systolic Function EF 4C: 60.90 >55% EF 2C: 65.50 >55% EF BiP: 63.30 >55% Mitral Valve MV Pk E: 0.63 MV PK A: 0.90 MV Decel Time: 191.00 E/A: 0.70 E'Lateral: 9.14 E'Medial: 4.13 E/E' Med: 15.20 E/E' Lat: 6.80 PHT: 56.00 MVA PHT: 3.93 Decel Menard: 3.28 Aortic Valve AoV Pk John: 2.44 AoV Mn John: 1.62 AoV VTI: 0.53 AoV Pk Grad: 24.00 Aov Mn Grad: 13.00 GREGORIA Cont.VTI: 1.97 LVOT LVOT Pk John: 1.24 LVOT Mn John: 0.80 LVOT VTI: 0.30 LVOT Pk Grad: 6.00 LVOT Mn Grad: 3.00 LVOT Diam: 2.10 LVOT Area: 3.46 Diastolic Function MV Pk E: 0.63 MV Pk A: 0.90 E/A: 0.70 E'Medial: 4.13 E/E' Med: 15.20 E' Laterial: 9.14 E/E' Lat: 6.80 Right Ventricle TAPSE (mm): 30.00 TVS' John: 17.00 Tricuspid Valve TR Pk John: 2.06 TR Pk Grad: 17.00 RA Press: 3.00 RVSP: 20.00 Great Vessels Aorta Ao Root-MM: 4.20 2.0-3.7 cm Ao Root-2D: 4.20 2.0-3.7 cm Ao Asc: 4.20 2.1-3.4 cm Pulmonary Valve PV Pk John: 1.27 Peak PV Grad: 6.00 Updated in Other Vendor System with Status of Final Richard Person MD electronically signed on 01/15/2023 1:38:07 PM with status of Final
== END ==
LOC: HO.CARD 07:41
PROVIDERS: PCP Nurse Practitioner Family; Visit Provider Internal Medicine Cardiovascular Disease
DX: I71.20 Thoracic aortic aneurysm, without rupture, unspecified (principal)
CPT/HCPCS: 93306

== ENCOUNTER → 2023-01-14 07:46 | Outpatient (BNV) | payer MEDICARE, SELFPAY | PROVIDERS: PCP Nurse Practitioner Family; Visit Provider Internal Medicine | DX: I35.0 Nonrheumatic aortic (valve) stenosis (principal) | CPT/HCPCS: 93306 ==

== ENCOUNTER 2023-01-15 08:40 | Outpatient (AMB) | payer MEDICARE, SELFPAY ==
--- NOTE | 2023-01-15 09:07 | HO.SPINEOV ---
Intake Intake Visit Reasons: 1st post op Intake Note: Mr. Minaya is here today for his 1st post-op visit. Warp Dyeing Vat Tender Required: No Allergies morphine [MORPHINE] Allergy (Severe, Verified 12/20/22 12:00) severe aggitation Assessment & Plan Assessment & Plan (1) Status post lumbar spine surgery for decompression of spinal cord: Code(s): Z98.890 - Other specified postprocedural states Plan Procedure: Right L3-4 lumbar microdiskectomy Marv comes in today for his 1st postoperative visit. He reports he is very satisfied with the surgery and feels much better than he did preoperatively. The patient reports he is up walking around and completing the majority of his ADLs. He reports that he no longer suffers from his right-sided shooting radiculopathy. He does still reports some weakness of his right leg, but overall feels much better than he did. We discussed the possibility of sending him for physical therapy after his 2nd postoperative visit which we will see him back for in the next 6 weeks. No neurological deficits. Patient is able to ambulate well, rises from a seated position without difficulty. Incision sites are closed, well healing, with no signs of drainage. We will follow-up with the patient in 6 weeks for his 2nd postoperative visit. The patient was advised to call and reach out to our office if he has any questions or issues between now and then. Ricky Rondon MD,PhD [facility] Coding Level of Care Code Global (26133) Diagnoses Status post lumbar spine surgery for decompression of spinal cord Z98.890
== END 2023-01-15 09:19 | disposition home or self-care (01) ==
PROVIDERS: PCP Nurse Practitioner Family; Visit Provider Physician Assistant
DX: Z98.890 Other specified postprocedural states (principal)
CPT/HCPCS: 99024

== ENCOUNTER → 2023-01-15 08:40 | Outpatient (BNVA) | payer MEDICARE, SELFPAY | PROVIDERS: PCP Nurse Practitioner Family; Visit Provider Physician Assistant | DX: Z48.811 Encounter for surgical aftercare following surgery on the nervous system (principal); Z98.890 Other specified postprocedural states | CPT/HCPCS: 99212 ==

== ENCOUNTER 2023-02-25 08:41 | Outpatient (AMB) | payer MEDICARE, SELFPAY ==
--- NOTE | 2023-02-25 08:50 | A.OFFVIS_ITS ---
Intake Vital Signs 02/25/23 08:52 Height 6 ft 2 in Weight 306 lb 7.08 oz BMI 39.3 BP 126/80 Blood Pressure Location Lt brachial Position Sitting Pulse 76 Intake Visit Reasons: 1 yr f/up w/ ekg Intake Note: 1 year follow-up with ekg feeling good First Assistant Required: No Allergies morphine [MORPHINE] Allergy (Severe, Verified 12/20/22 12:00) severe aggitation Medication List - Last Reconciled 02/25/23 by Cristopher Schuster MD acetaminophen 650 mg (2 x 325 mg) PO Q6H PRN 30 days apixaban (Eliquis) 5 mg PO BID 90 days apple cider vinegar 500 mg PO BID [CPAP As directed, for sleep apnea] docusate sodium (Colace) 100 mg PO BID dronedarone (Multaq) 400 mg PO BID 90 days lisinopril 10 mg PO DAILY magnesium 250 mg PO BEDTIME multivitamin 1 tab PO DAILY omega-3 fatty acids (Fish Oil Concentrate) 1,000 mg PO BID omeprazole 20 mg PO DAILY rosuvastatin 20 mg PO QAM sertraline 100 mg PO QAM walker Folding Front wheeled walker HPI HPI Comments History of Present Illness Details Marv comes for follow-up. He underwent urgent spine surgery couple months ago and is doing very well from that with improved pain in the right side and the sciatica. He continues to have left-sided sciatica. He also had knee surgery last year which she is still recuperating from. He is started walking every day. Denies any symptoms exertional chest pain. Denies any recurrent symptoms of irregular heartbeat or prolonged palpitations. No lightheadedness, syncope. No heart failure symptoms. No bleeding issues or neurologic events. REPLACED BY [facility] Medical History Routine medical exam Major depression, recurrent, chronic Major depression, recurrent, chronic Skin cancer CAD (coronary artery disease) Hypertension Hyperlipemia PAF (paroxysmal atrial fibrillation) History of cardioversion Hx of skin cancer, basal cell PTSD (post-traumatic stress disorder) BPH (benign prostatic hyperplasia) AAA (abdominal aortic aneurysm) Anxiety and depression Anemia Diverticulosis GERD (gastroesophageal reflux disease) Sleep apnea Surgical History Status post lumbar microdiscectomy Hx of blepharoplasty History of prostate surgery Hx of arthroscopy of left knee H/O vein stripping (~06/08/21) Hx of blepharoplasty History of prostate surgery Hx of arthroscopy of left knee H/O vein stripping (~06/08/21) Hx of cardiac catheterization H/O umbilical hernia repair History of incision and drainage Hx of tonsillectomy History of esophagogastroduodenoscopy (EGD) History of cardiac radiofrequency ablation Hx of colonoscopy Hx of right knee surgery History of total left hip arthroplasty Family History Father Esophageal cancer Mother Esophageal cancer Social History Household Members: Family Housing: House Are you a primary primary care pediatrician to a significant other at home: No Do you presently have visiting nurse or other home services: No Patient Tobacco Use Status: Current everyday Tobacco user Smoking Start Date: 09/11/59 Tobacco use type: Cigarette Cigarettes Per Day: 3 Years Smoked: 25 e-Cigarette/Vaping Use: Never Used Second Hand Smoke Exposure: No Substance Use Type: Marijuana Advance Directives Date on File: 04/27/12 service: No Current occupational status: retired Cognitive needs: No Hearing needs: No Vision needs: No Review of Systems Const Denies chills, Denies fatigue, Denies fever(s), Denies frequent falls, Denies weakness, Denies weight gain and Denies weight loss ENT Denies dizziness Card Denies chest pain, Denies leg edema, Denies lightheadedness, Denies palpitations, Denies dyspnea, Denies dyspnea on exertion, Denies orthopnea and Denies other (loss of consciousness) Resp Denies cough, Denies dyspnea and Denies dyspnea on exertion GI Denies hematochezia and Denies change in stool character Musc Denies abnormal gait, Denies muscle weakness, Denies numbness, Denies radiating pain into limb and Denies tingling Neuro Denies abnormal gait, Denies dizziness, Denies frequent falls, Denies numbness, Denies tingling and Denies weakness Endo Denies fatigue and Denies palpitations Physical Exam Vital Signs: Last Vital Signs Pulse 76 02/25/23 08:52 BP 126/80 02/25/23 08:52 BMI result Body Mass Index 39.3 Repeat blood pressure 124/76 Const General: cooperative, comfortable, no acute distress, alert, awake and Physically active Nutritional Appearance: obese Orientation/consciousness: patient oriented x3 Limitations: no limitations Neck Neck: Yes trachea midline, Yes supple and Yes no JVD Resp Effort & Inspection: normal respiratory effort Auscultation: clear to auscultation bilaterally Cardio Jugular venous distension: no JVD Palpation: normal PMI Rate: regular rate Rhythm: regular rhythm Heart sounds: S1 normal heart sound present, S2 normal heart sound present, no click, no gallops, no murmurs and no rubs GI Auscultation: normal bowel sounds Skin General skin exam: no rashes or lesions noted Neuro General: patient oriented x3 and no focal motor deficits Extrem General: Yes no clubbing, cyanosis or edema and Yes other ( bilateral varicose veins left greater than right) Psych Appearance: grossly normal Office Procedures EKG Details: EKG shows normal sinus rhythm with nonspecific ST changes with normal QT interval [id number], Complete Assessment & Plan Assessment & Plan (1) PAF (paroxysmal atrial fibrillation): Comment: eliquis, s/p ablation Code(s): I48.0 - Paroxysmal atrial fibrillation Plan: Paroxysmal atrial fibrillation has done extremely well with rhythm control approach. Status post ablation in the past. Has done well on Multaq therapy for recurrent atrial fibrillation and has tolerated this well. Continue the same. Continue full oral anticoagulation, currently on Eliquis at 5 mg b.i.d.. Semi annual renal function test should be pursued. Avoidance of stimulants especially in his case alcohol being a trigger to be pursued. He understands. Continue aggressive risk factor modification including weight reduction and aggressive control blood pressure which is currently well optimized. (2) CAD (coronary artery disease): Comment: sees Dr Schuster last visit 09/09/2019 Code(s): I25.10 - Atherosclerotic heart disease of [place] coronary artery without angina pectoris Plan: Coronary artery disease with no recurrent symptoms suggestive angina at current point time. Continue aggressive medical therapy. Currently on full oral anticoagulation Eliquis and will therefore avoid antiplatelet agent. Continue aggressive blood pressure control which is currently well optimized continue high-intensity statin therapy with target goal LDL closer to 60 mg/dL. Advised to call me with any new symptoms. No further workup is indicated at this point in time. (3) Thoracic aortic aneurysm: Code(s): I71.20 - Thoracic aortic aneurysm, without rupture, unspecified Plan: Thoracic aortic aneurysm which has remained stable at 4.2 cm. Will continue monitor on annual basis. Continue aggressive blood pressure control which is well optimized. Aggressive vascular risk factor modifications above. Follow up in the clinic in 6 months time with me. Follow-up for EKG in 3 months time. Coding Level of Care Code Est Pt Level 4 (53534) Diagnoses PAF (paroxysmal atrial fibrillation) I48.0 CAD (coronary artery disease) I25.10 Thoracic aortic aneurysm I71.20 CPT Codes EKG - CPT: 12606-[id number], Complete ([id number])
[2023-02-25 08:52] VITALS: BP 126/80; PULSE 76; BMI 39.3
== END 2023-02-25 09:32 | disposition home or self-care (01) ==
PROVIDERS: Visit Provider Internal Medicine Cardiovascular Disease
DX: I48.0 Paroxysmal atrial fibrillation (principal); I25.10 Atherosclerotic heart disease of native coronary artery without angina pectoris; I71.20 Thoracic aortic aneurysm, without rupture, unspecified
CPT/HCPCS: 93010; 99214

== ENCOUNTER → 2023-02-25 08:41 | Outpatient (BNVA) | payer MEDICARE, SELFPAY | PROVIDERS: Visit Provider Internal Medicine Cardiovascular Disease | DX: I48.0 Paroxysmal atrial fibrillation (principal); I25.10 Atherosclerotic heart disease of native coronary artery without angina pectoris; I71.20 Thoracic aortic aneurysm, without rupture, unspecified; Z79.01 Long term (current) use of anticoagulants; Z79.899 Other long term (current) drug therapy | CPT/HCPCS: 93005; 99212 ==

== ENCOUNTER 2023-02-26 08:39 | Outpatient (AMB) | payer MEDICARE, SELFPAY ==
--- NOTE | 2023-02-26 08:59 | MHC.OFFVIS ---
Intake Intake Visit Reasons: 2nd post op Intake Note: Patient here for his second post op Ship Fastener Required: No Allergies morphine [MORPHINE] Allergy (Severe, Verified 12/20/22 12:00) severe aggitation PFSH Medical History Routine medical exam Major depression, recurrent, chronic Major depression, recurrent, chronic Skin cancer CAD (coronary artery disease) Hypertension Hyperlipemia PAF (paroxysmal atrial fibrillation) History of cardioversion Hx of skin cancer, basal cell PTSD (post-traumatic stress disorder) BPH (benign prostatic hyperplasia) AAA (abdominal aortic aneurysm) Anxiety and depression Anemia Diverticulosis GERD (gastroesophageal reflux disease) Sleep apnea Surgical History Status post lumbar microdiscectomy Hx of blepharoplasty History of prostate surgery Hx of arthroscopy of left knee H/O vein stripping (~06/08/21) Hx of blepharoplasty History of prostate surgery Hx of arthroscopy of left knee H/O vein stripping (~06/08/21) Hx of cardiac catheterization H/O umbilical hernia repair History of incision and drainage Hx of tonsillectomy History of esophagogastroduodenoscopy (EGD) History of cardiac radiofrequency ablation Hx of colonoscopy Hx of right knee surgery History of total left hip arthroplasty Family History Father Esophageal cancer Mother Esophageal cancer Social History Household Members: Family Housing: House Are you a primary long term care pharmacist to a significant other at home: No Do you presently have visiting nurse or other home services: No Patient Tobacco Use Status: Current everyday Tobacco user Smoking Start Date: 09/11/59 Tobacco use type: Cigarette Cigarettes Per Day: 3 Years Smoked: 25 e-Cigarette/Vaping Use: Never Used Second Hand Smoke Exposure: No Substance Use Type: Marijuana Advance Directives Date on File: 04/27/12 service: No Current occupational status: retired Cognitive needs: No Hearing needs: No Vision needs: No Assessment & Plan Assessment & Plan (1) Status post lumbar spine surgery for decompression of spinal cord: Code(s): Z98.890 - Other specified postprocedural states Plan Procedure: Right L3-4 lumbar microdiskectomy Marv comes in today for his 2nd postoperative visit. He reports he continues to feel very satisfied with the surgery and feels much better than he did preoperatively. He states that he has no issues with ambulation on the right side any longer, has no numbness on the right side, and no notable deficits on the right side. He does state that he fell a couple of days prior to surgery and has been having issues with his left side since the fall. When describing the pain he runs his hand over his lateral left thigh and over the anterior left knee. He was informed that we can make him a follow-up visit in 3-4 weeks to work him up for this issue. No neurological deficits. Patient is able to ambulate well, rises from a seated position without difficulty. Incision site is closed, well healed. We will follow-up with the patient in 3-4 weeks to evaluate him for his left-sided issues. Ricky Rondon MD,PhD [facility] Coding Level of Care Code Global (60305) Diagnoses Status post lumbar spine surgery for decompression of spinal cord Z98.890
== END 2023-02-26 09:22 | disposition home or self-care (01) ==
PROVIDERS: PCP Nurse Practitioner Family; Visit Provider Physician Assistant
DX: Z98.890 Other specified postprocedural states (principal)
CPT/HCPCS: 99024

== ENCOUNTER → 2023-02-26 08:39 | Outpatient (BNVA) | payer MEDICARE, SELFPAY | PROVIDERS: PCP Nurse Practitioner Family; Visit Provider Physician Assistant | DX: Z48.89 Encounter for other specified surgical aftercare (principal) | CPT/HCPCS: 99212 ==

== ENCOUNTER 2023-03-19 09:44 | Outpatient (AMB) | payer MEDICARE, SELFPAY ==
--- NOTE | 2023-03-19 09:52 | A.OFFVIS_ITS ---
Intake Intake Visit Reasons: 3 weeks f/up Curtain Hemmer Automatic Required: No Allergies morphine [MORPHINE] Allergy (Severe, Verified 12/20/22 12:00) severe aggitation [facility] Medical History Routine medical exam Major depression, recurrent, chronic Major depression, recurrent, chronic Skin cancer CAD (coronary artery disease) Hypertension Hyperlipemia PAF (paroxysmal atrial fibrillation) History of cardioversion Hx of skin cancer, basal cell PTSD (post-traumatic stress disorder) BPH (benign prostatic hyperplasia) AAA (abdominal aortic aneurysm) Anxiety and depression Anemia Diverticulosis GERD (gastroesophageal reflux disease) Sleep apnea Surgical History Status post lumbar microdiscectomy Hx of blepharoplasty History of prostate surgery Hx of arthroscopy of left knee H/O vein stripping (~06/08/21) Hx of blepharoplasty History of prostate surgery Hx of arthroscopy of left knee H/O vein stripping (~06/08/21) Hx of cardiac catheterization H/O umbilical hernia repair History of incision and drainage Hx of tonsillectomy History of esophagogastroduodenoscopy (EGD) History of cardiac radiofrequency ablation Hx of colonoscopy Hx of right knee surgery History of total left hip arthroplasty Family History Father Esophageal cancer Mother Esophageal cancer Social History Household Members: Family Housing: House Are you a primary date night caregiver to a significant other at home: No Do you presently have visiting nurse or other home services: No Patient Tobacco Use Status: Current everyday Tobacco user Smoking Start Date: 09/11/59 Tobacco use type: Cigarette Cigarettes Per Day: 3 Years Smoked: 25 e-Cigarette/Vaping Use: Never Used Second Hand Smoke Exposure: No Substance Use Type: Marijuana Advance Directives Date on File: 04/27/12 service: No Current occupational status: retired Cognitive needs: No Hearing needs: No Vision needs: No Assessment & Plan Assessment & Plan (1) Status post lumbar spine surgery for decompression of spinal cord: Code(s): Z98.890 - Other specified postprocedural states Plan Previous Procedure: Right L3-4 lumbar microdiskectomy HPI: Marv comes in today for a follow-up after having a right-sided L3-4 microdiskectomy completed on 12/24/2022. He reports that his right-sided symptoms have completely resolved, however he has a left-sided radiculopathy which started a couple of days before his surgery. He reports that a couple of days before surgery he was trying to move a large concrete bird bath when he felt a pop in his back and began having some mild shooting pains down his left side. He continued through with his right-sided microdiskectomy to relief his L3-4 symptoms in the right and feels he had 100% relief of the symptoms. He is now concerned that he may have caused a problem to his left side, and wanted to discuss potential interventions to help alleviate this pain, as it has worsened since onset. When describing the radiation of his pain he runs his hand down his posterior buttocks across his left lateral thigh and over the top of his left knee. He has tried stretching, light at home exercise, and [id number] pain medications without relief of his left-sided radicular symptoms. Exam: Full strength 5/5 UE / LE. Mobility is intact. Sensation grossly intact. Reflexes 2+ intact. Patient is able to ambulate well with the assistance of a cane, and rises from a seated position without difficulty. Incision sites are closed, well healing, with no signs of drainage. Imaging review: MRI completed at [facility] does show moderate-severe central canal and foraminal stenosis at L4-5 and some evidence of a previous disc protrusion at L5-S1 causing moderate bilateral foraminal stenosis. Plan: His description of radiation is in a distribution most consistent with a left sided L4 nerve root impingement. There is severe moderate-stenosis at L4-5 but the left side does not appear to be affected any worse than the right. His injury took place after his previous MRI, and was identified as the inciting incident for this radicular pain. He will need new MRI imaging to determine if there is new nerve root impingement at this level. He may have a new herniated disc causing these symptoms. I will order a lumbar MRI and send Marv to physical therapy for the time being, as he is in considerable pain and would like to try physical therapy for some symptom relief, despite already trying an at home exercise regimen. Total amount of time spent in this visit was 35 minutes in discussion of symptoms, MRI imaging review and subsequent plan of care Ricky Rondon MD,PhD [facility] Orders: Orders PT Evaluation and Treatment Today Z98.890 - Other specified postprocedural states Coding Level of Care Code Est Pt Level 3 (40274) Global (98226) Diagnoses Status post lumbar spine surgery for decompression of spinal cord Z98.890
== END 2023-03-19 10:06 | disposition home or self-care (01) ==
PROVIDERS: PCP Nurse Practitioner Family; Visit Provider Physician Assistant
DX: Z98.890 Other specified postprocedural states (principal)
CPT/HCPCS: 99024

== ENCOUNTER → 2023-03-19 09:44 | Outpatient (BNVA) | payer MEDICARE, SELFPAY | PROVIDERS: PCP Nurse Practitioner Family; Visit Provider Physician Assistant | DX: Z47.89 Encounter for other orthopedic aftercare (principal); Z98.890 Other specified postprocedural states | CPT/HCPCS: 99212 ==

== ENCOUNTER 2023-04-07 13:40 | Outpatient (AMB) | payer MEDICARE, SELFPAY ==
--- NOTE | 2023-04-07 13:43 | A.OFFVIS_ITS ---
Intake Intake Visit Reasons: Newprob- Lt knee pain, fell a couple weeks ago Intake Note: Mavr is a 67 year old male who presents to the office today for left knee pain. Pt states he fell 12/21/22 and fell on his back and is still having pain in his left knee. Pt states he is interested in an injection and states he has never had an injection in his left knee before. Allergies morphine [MORPHINE] Allergy (Severe, Verified 04/07/23 13:44) severe aggitation HPI Newprob- Lt knee pain, fell a couple weeks ago HPI Details Marv is a 67 year old man who presents with complaints of left knee pain S/P fall, DOI: 12/21/22. He has known left knee OA, with pain & stiffness. He complains of pain with daily activity, and is interested in an injection. he is S/P right L3-4 lumbar microdiskectomy with microscope, DOS: 12/25/22. [facility] Medical History Routine medical exam Major depression, recurrent, chronic Major depression, recurrent, chronic Skin cancer CAD (coronary artery disease) Hypertension Hyperlipemia PAF (paroxysmal atrial fibrillation) History of cardioversion Hx of skin cancer, basal cell PTSD (post-traumatic stress disorder) BPH (benign prostatic hyperplasia) AAA (abdominal aortic aneurysm) Anxiety and depression Anemia Diverticulosis GERD (gastroesophageal reflux disease) Sleep apnea Surgical History Status post lumbar microdiscectomy Hx of blepharoplasty History of prostate surgery Hx of arthroscopy of left knee H/O vein stripping (~06/08/21) Hx of blepharoplasty History of prostate surgery Hx of arthroscopy of left knee H/O vein stripping (~06/08/21) Hx of cardiac catheterization H/O umbilical hernia repair History of incision and drainage Hx of tonsillectomy History of esophagogastroduodenoscopy (EGD) History of cardiac radiofrequency ablation Hx of colonoscopy Hx of right knee surgery History of total left hip arthroplasty Family History Father Esophageal cancer Mother Esophageal cancer Social History (Updated 04/07/23 @ 13:45 by Trista Soto MA) Household Members: Family Housing: House Are you a primary healthcare project manager to a significant other at home: No Do you presently have visiting nurse or other home services: No Patient Tobacco Use Status: Current everyday Tobacco user Smoking Start Date: 09/11/59 Tobacco use type: Cigarette Cigarettes Per Day: 1 Years Smoked: 25 e-Cigarette/Vaping Use: Never Used Second Hand Smoke Exposure: No Substance Use Type: Marijuana Advance Directives Date on File: 04/27/12 service: No Current occupational status: retired Cognitive needs: No Hearing needs: No Vision needs: No Review of Systems Const All systems reviewed & are unremarkable except as noted in HPI and below Physical Exam Const General: no acute distress, alert and awake Orientation/consciousness: patient oriented x3 HEENT Head: Yes normocephalic and Yes atraumatic Mouth: moist mucous membranes Eyes General: appearance normal, both eyes and all related structures EOM: EOMs intact bilaterally Chest Other: no audible wheezing. Resp Other: No audible wheezing Effort & Inspection: normal respiratory effort and able to speak in complete sentences Cardio Other: Radial pulse palpable with no rythmic abnormalities Jugular venous distension: no JVD Back/Spine/Pelvis Cervical Spine: normal cervical lordosis Skin General skin exam: turgor normal Rashes: no rashes Neuro General: patient oriented x3 Extrem Other: TTP medial joint line left knee Mild effusion Psych Appearance: grossly normal Mental Status: mental status grossly normal Speech and movement: Normal speech and movement present Affect: normal affect Attitude: cooperative Office Procedures Joint Injection/Drain Joint Injection/Drain Details: Injected 1 mL of Decadron and 3 mL 1% lidocaine and 3 mL of 0.25% Marcaine. Site was prepped using aseptic technique. Patient tolerated the procedure well. Primary Site: left knee Approach Used: anterolateral Coding - Large joint Procedure code (CPT) selection complete Assessment & Plan Assessment & Plan (1) Osteoarthritis of left knee: Code(s): M17.12 - Unilateral primary osteoarthritis, left knee Plan: Left knee OA. Injected left knee. May follow up as needed. Plan Prepared for Nathan Navarrete MD by Herminio Crowell, medical equipment sales, on 04/07/23 at 1:48 PM, EST. Coding Level of Care Code Est Pt Level 3 (39194) Diagnoses Osteoarthritis of left knee M17.12 CPT Codes Coding - Large joint: 72425 - Large joint ([id number])
== END 2023-04-07 14:12 | disposition home or self-care (01) ==
PROVIDERS: PCP Nurse Practitioner Family; Visit Provider Orthopaedic Surgery
DX: M17.12 Unilateral primary osteoarthritis, left knee (principal); W19.XXXA Unspecified fall, initial encounter
CPT/HCPCS: 20610; 99213

== ENCOUNTER → 2023-04-07 13:40 | Outpatient (BNVA) | payer MEDICARE, SELFPAY | PROVIDERS: PCP Nurse Practitioner Family; Visit Provider Orthopaedic Surgery | DX: M17.12 Unilateral primary osteoarthritis, left knee (principal) | CPT/HCPCS: 20610; 99212; J0665; J1100 ==

== ENCOUNTER 2023-04-10 08:15 | Outpatient (AMB) | payer MEDICARE, SELFPAY ==
--- NOTE | 2023-04-10 09:03 | AM.OFFWIN_ITS ---
Intake Vital Signs 04/10/23 09:04 Height 6 ft 2 in Weight 300 lb BMI 38.5 BP 122/80 Blood Pressure Location Rt brachial Position Sitting Pulse 78 Pulse Source Pulse Oximeter Pulse Oximetry (%) 94 Oxygen Delivery Method Room Air Intake Visit Reasons: EP LFT leg pain Intake Note: Patient here left leg pain that has been going on since Dec and has been having to use a cane to get around. Patient Tobacco Use Status: Current everyday Tobacco user Allergies morphine [MORPHINE] Allergy (Severe, Verified 04/10/23 09:06) severe aggitation Do you need a note to return to daycare/school/sports/work: No HPI HPI Comments History of Present Illness Details 67 y/o male patient who presents to walk in clinic with c/o Left leg pain since Dec. Pt was seen by Ortho 04/07 and was given Steroid injection. Pt is also receiving PT. [facility] Medical History Routine medical exam Major depression, recurrent, chronic Major depression, recurrent, chronic Skin cancer CAD (coronary artery disease) Hypertension Hyperlipemia PAF (paroxysmal atrial fibrillation) History of cardioversion Hx of skin cancer, basal cell PTSD (post-traumatic stress disorder) BPH (benign prostatic hyperplasia) AAA (abdominal aortic aneurysm) Anxiety and depression Anemia Diverticulosis GERD (gastroesophageal reflux disease) Sleep apnea Surgical History Status post lumbar microdiscectomy Hx of blepharoplasty History of prostate surgery Hx of arthroscopy of left knee H/O vein stripping (~06/08/21) Hx of blepharoplasty History of prostate surgery Hx of arthroscopy of left knee H/O vein stripping (~06/08/21) Hx of cardiac catheterization H/O umbilical hernia repair History of incision and drainage Hx of tonsillectomy History of esophagogastroduodenoscopy (EGD) History of cardiac radiofrequency ablation Hx of colonoscopy Hx of right knee surgery History of total left hip arthroplasty Family History Father Esophageal cancer Mother Esophageal cancer Social History (Updated 04/07/23 @ 13:45 by Trista Soto MA) Household Members: Family Housing: House Are you a primary career services assistant to a significant other at home: No Do you presently have visiting nurse or other home services: No Patient Tobacco Use Status: Current everyday Tobacco user Smoking Start Date: 09/11/59 Tobacco use type: Cigarette Cigarettes Per Day: 1 Years Smoked: 25 e-Cigarette/Vaping Use: Never Used Second Hand Smoke Exposure: No Substance Use Type: Marijuana Advance Directives Date on File: 04/27/12 service: No Current occupational status: retired Cognitive needs: No Hearing needs: No Vision needs: No Review of Systems Const All systems reviewed & are unremarkable except as noted in HPI and below Physical Exam Vital Signs: Last Vital Signs Pulse 78 04/10/23 09:04 BP 122/80 04/10/23 09:04 Pulse Ox 94 04/10/23 09:04 Oxygen Delivery Method Room Air 04/10/23 09:04 BMI result Body Mass Index 38.5 Const General: no acute distress Nutritional Appearance: obese Orientation/consciousness: patient oriented x3 Limitations: ambulation with cane Neuro Other: Walks with a limp General: patient oriented x3 Psych Speech and movement: Clear speech present Affect: normal affect Assessment & Plan Assessment & Plan (1) Osteoarthritis of left knee: Code(s): M17.12 - Unilateral primary osteoarthritis, left knee Qualifiers: Osteoarthritis type: unspecified Qualified Code(s): M17.12 - Unilateral primary osteoarthritis, left knee Plan: - Continue with PT as directed - Continue F/U with Ortho as planned. - Advised pt to call Ortho if pain worse. Coding Level of Care Code Est Pt Level 3 (48748) Diagnoses Osteoarthritis of left knee, unspecified osteoarthritis type M17.12 Osteoarthritis type: unspecified Time Spent (min) 10
[2023-04-10 09:04] VITALS: BP 122/80; PULSE 78; O2SAT 94; BMI 38.5
== END 2023-04-10 09:29 | disposition home or self-care (01) ==
PROVIDERS: PCP Nurse Practitioner Family; Visit Provider Nurse Practitioner Family
DX: M17.12 Unilateral primary osteoarthritis, left knee (principal)
CPT/HCPCS: 99213

== ENCOUNTER 2023-05-06 08:19 | Outpatient (AMB) | payer MEDICARE, SELFPAY ==
[2023-05-06 08:24] VITALS: BP 130/80; PULSE 78; O2SAT 98; BMI 39.3
--- NOTE | 2023-05-06 08:24 | MHC.PC.OV ---
Vital Signs 05/06/23 08:24 Height 6 ft 2 in Weight 306 lb BMI 39.3 BP 130/80 Blood Pressure Location Lt brachial Position Sitting Pulse 78 Pulse Source Pulse Oximeter Pulse Oximetry (%) 98 Oxygen Delivery Method Room Air Intake Visit Reasons: 6 month follow up Intake Note: pt is here for 6 month follow up Histology Aide Required: No Accompanied by: Self / Same As Patient Allergies morphine [MORPHINE] Allergy (Severe, Verified 05/06/23 09:10) severe aggitation Medication List - Last Reconciled 05/06/23 by LAUREANO Carlisle acetaminophen 650 mg (2 x 325 mg) PO Q6H PRN 30 days apixaban (Eliquis) 5 mg PO BID 90 days apple cider vinegar 500 mg PO BID [CPAP As directed, for sleep apnea] docusate sodium (Colace) 100 mg PO BID dronedarone (Multaq) 400 mg PO BID 90 days lisinopril 10 mg PO DAILY magnesium 250 mg PO BEDTIME multivitamin 1 tab PO DAILY omega-3 fatty acids (Fish Oil Concentrate) 1,000 mg PO BID omeprazole 20 mg PO DAILY rosuvastatin 20 mg PO DAILY sertraline 100 mg PO QAM tizanidine 2 mg PO TID PRN 20 days walker Folding Front wheeled walker Tobacco use date assessed: 05/06/23 Fall risk assessment: No Falls in past year Last assessed Fall Risk: 05/06/23 Dental Screening Dental Screen Date: 05/06/23 Did you have a dental visit in the last 12 months?: Yes Did you have a dental problem in the last 6 months where you did not have access to dental care?: No Was dental information given to patient?: Patient has dentist HPI 6 month follow up HPI Details HTN: Blood pressure is stable, managed with lisinopril 10mg. Denies chest pain, shortness of breath, headache, dizziness, and blurred vision. Will order labs. Pt is following up with cardiology. Due for PSA, will order. Denies dribbling with urination, weak stream, and frequent nocturia. [facility] Medical History Routine medical exam Major depression, recurrent, chronic Major depression, recurrent, chronic Skin cancer CAD (coronary artery disease) Hypertension Hyperlipemia PAF (paroxysmal atrial fibrillation) History of cardioversion Hx of skin cancer, basal cell PTSD (post-traumatic stress disorder) BPH (benign prostatic hyperplasia) AAA (abdominal aortic aneurysm) Anxiety and depression Anemia Diverticulosis GERD (gastroesophageal reflux disease) Sleep apnea Surgical History Status post lumbar microdiscectomy Hx of blepharoplasty History of prostate surgery Hx of arthroscopy of left knee H/O vein stripping (~06/08/21) Hx of blepharoplasty History of prostate surgery Hx of arthroscopy of left knee H/O vein stripping (~06/08/21) Hx of cardiac catheterization H/O umbilical hernia repair History of incision and drainage Hx of tonsillectomy History of esophagogastroduodenoscopy (EGD) History of cardiac radiofrequency ablation Hx of colonoscopy Hx of right knee surgery History of total left hip arthroplasty Family History Father Esophageal cancer Mother Esophageal cancer Social History Household Members: Family Housing: House Are you a primary early breastfeeding care specialist to a significant other at home: No Do you presently have visiting nurse or other home services: No Patient Tobacco Use Status: Current everyday Tobacco user Smoking Start Date: 09/11/59 Tobacco use type: Cigarette Cigarettes Per Day: 1 Years Smoked: 25 e-Cigarette/Vaping Use: Never Used Second Hand Smoke Exposure: No Substance Use Type: Marijuana Advance Directives Date on File: 04/27/12 service: No Current occupational status: retired Cognitive needs: No Hearing needs: No Vision needs: No Questionnaire PHQ-9 Over the last 2 weeks, how often have you been bothered by any of the following problems? 1. Little interest or pleasure in doing things: not at all 2. Feeling down, depressed, or hopeless: not at all 3. Trouble falling or staying asleep, or sleeping too much: not at all 4. Feeling tired or having little energy: several days 5. Poor appetite or overeating: several days 6. Feeling bad about yourself - or that you are a failure or have let yourself or your family down: not at all 7. Trouble concentrating on things, such as reading the newspaper or watching television: not at all 8. Moving or speaking so slowly that other people could have noticed. Or the opposite - being so fidgety or restless that you have been moving around a lot more than usual: not at all 9. Thoughts that you would be better off or of hurting yourself in some way: not at all Total score: 2 Depression Screening Interpretation: Negative Depression Screening Done: Yes 44803 - PHQ-9 Billing: Yes Source: Developed by Drs. Gamaliel Good, Yolanda Martinez, Jacob Johnston and colleagues, with an educational marvel from [employer]. Thrive Questionnaire Date Thrive assessed: 05/06/23 I am a: Patient What is your living situation today?: I do not have a steady places to live Within the past 12 months, did the food you bought not last and you didn't have the money to get more?: Never true Within the past 12 months, did you worry whether your food would run out before you got money to buy more?: Never true Do you have trouble paying for medicines?: No Do you have trouble getting transportation to medical appointments?: No Do you have trouble paying your heating and electricity bill?: No Do you have trouble taking care of your child, family member or friend?: No Do you have trouble with day-to-day activities such as bathing, preparing meals, shopping, managing finances, etc.?: No Are you currently unemployed and looking for a job?: No Are you interested in more education?: No Please select the resources that you would like help with: None Currently or been in a relationship where the following occur: no concerns reported THRIVE Score: 1 AUDIT C Alcohol Use Questionnaire (AUDIT-C) 1. How often do you have a drink containing alcohol?: Never 3. How often do you have six or more drinks on one occasion?: Never Total Score: 0 Score Reviewed/Action Taken: Yes DANIEL-7 AMB Questionnaire DANIEL-7 Date DANIEL - 7 assessed: 05/06/23 Feeling nervous, anxious, or on edge: 0 = Not at all Not being able to stop or control worryin = Not at all Worrying too much about different things: 1 = Several days Trouble relaxin = Not at all Being so restless that it is hard to sit still: 1 = Several days Becoming easily annoyed or irritable: 0 = Not at all Feeling afraid as if something awful might happen: 0 = Not at all Total DANIEL-7 score (0-4 normal; 5-9 mild; 10-14 moderate; 15-21 severe): 2 Source: Developed by Drs. Gamaliel Good, Yolanda Martinez, Jacob Johnston and colleagues, with an educational marvel from [employer]. DANIEL-7 Assessment Billing DANIEL-7 Assessment Tool: DANIEL-7 Assessment 39622 Review of Systems Const Reports as per HPI Physical exam (Primary Care) Vital Signs: Last Vital Signs Pulse 78 05/06/23 08:24 BP 130/80 05/06/23 08:24 Pulse Ox 98 05/06/23 08:24 Oxygen Delivery Method Room Air 05/06/23 08:24 BMI result Body Mass Index 39.3 Tobacco/Smoking Status: Tobacco use Status Tobacco use date assessed 05/06/23 05/06/23 08:31 Patient Tobacco Use Status Current everyday Tobacco 05/06/23 08:31 Tobacco use type Cigarette 05/06/23 08:31 e-Cigarette/Vaping Use Never Used 05/06/23 08:31 PHQ-9: PHQ-9 Score PHQ-9: Total score 2 05/06/23 08:39 Depression Screening Interpretation: Negative Thrive Assessment: Date of Thrive Assessment Date Thrive assessed 05/06/23 05/06/23 08:31 Currently or been in a relationship where the following occur: no concerns reported Const General: cooperative Nutritional Appearance: obese Resp Effort & Inspection: normal respiratory effort Auscultation: clear to auscultation bilaterally Cardio Rate: regular rate Rhythm: regular rhythm Heart sounds: S1 normal heart sound present, S2 normal heart sound present and Murmur heart sound present systolic Extrem Right lower extremity: no edema Left lower extremity: no edema Psych Appearance: grossly normal Mental Status: mental status grossly normal Speech and movement: Normal speech and movement present Affect: normal affect Attitude: cooperative Thought process: Normal thought process present Thought content: Normal thought content present Insight: Good insight present (Psych) Judgement: Good judgement present (Psych) Assessment and Plan Assessment & Plan (1) Screening PSA (prostate specific antigen): Code(s): Z12.5 - Encounter for screening for malignant neoplasm of prostate Plan: PSA ordered (2) Hypertension: Code(s): I10 - Essential (primary) hypertension Plan: labs ordered Plan The patient agreed to the use of a internist medical doctor md for this encounter. Scribed for Vijay RISA Jaramillo-BC by Juli Quesada internist medical doctor md, on 05/06/2023 at 08:35 EST. Orders: Orders TSH reflex Free T4 Today Z12.5 - Encounter for screening for malignant neoplasm of prostate Vijay Early RISA Jaramillo-DAYO Lipid Panel Today Z12.5 - Encounter for screening for malignant neoplasm of prostate Vijay Early RISA Jaramillo-BC Complete Blood Count Auto Diff Today Z12.5 - Encounter for screening for malignant neoplasm of prostate Vijay Early RISA Jaramillo-BC Comprehensive [place]. Panel Fast Today Z12.5 - Encounter for screening for malignant neoplasm of prostate Vijay Early RISA Jaramillo-BC UA CC w/rflx Micro + Cult Today Z12.5 - Encounter for screening for malignant neoplasm of prostate Vijay Early RISA Jaramillo-BC Prostate Specific Antigen Scr Today Z12.5 - Encounter for screening for malignant neoplasm of prostate Vijay Early RISA Jaramillo-BC Medications: New tizanidine 2 mg PO TID PRN 60 tabs 0RF muscle spasticity 20 days Saad RISA Jaramillo-BC Resumed apixaban (Eliquis) 5 mg PO BID 90 days 180 tabs 3RF I48.0 - Paroxysmal atrial fibrillation Cristopher Schuster MD Coding Level of Care Code Est Pt Level 3 (20925) Diagnoses Screening PSA (prostate specific antigen) Z12.5 Hypertension I10 Additional Codes DANIEL-7 Assessment Billing - DANIEL-7 Assessment Tool: DANIEL-7 Assessment 09305 ([id number])
== END 2023-05-06 08:49 | disposition home or self-care (01) ==
PROVIDERS: PCP Nurse Practitioner Family; Visit Provider Nurse Practitioner Family
DX: I10 Essential (primary) hypertension (principal); Z12.5 Encounter for screening for malignant neoplasm of prostate
CPT/HCPCS: 99213

== ENCOUNTER 2023-05-21 08:00 | Outpatient (RCR) | payer MEDICARE, SELFPAY ==
--- NOTE | 2023-04-22 08:25 | MHC.PT.EP ---
[facility] [place] [facility] [place] [facility] [place] [facility] [address] Aletha Burrell [address] [phone] F: [phone] F: [phone] F: [phone] F: [phone] Physical Therapy Plan of Care Date of Evaluation: 04/22/23 Date of Surgery: 12/24/22 Diagnosis: s/p R L3-L4 Lumbar microdiskectomy 12/24/22. Assessment: Patient is a 67 year old R handed male who presents with s/s consistent with low back pain, s/p microdiskectomy on 12/24/22. He does not work but does enjoy staying active. He has been having L sided LBP and LE pain since a fall just before surgery. Patient past medical history is complex and includes a TKA, YUNIER, and blood thinners. Current impairments include pain, posture, ROM, strength, flexibility, activity tolerance and functional mobility. Functional limitations include decreased ability to stand, walk, bend, squat, lift, sleep, and be active. Patient is motivated with good rehab potential. Skilled PT will address impairments and functional limitations in order to achieve goals. Frequency and Duration: The patient will be seen 2x/week for 5 weeks Short Term Goals: I with HEP - 2 weeks AROM lumbar spine 75% and pain free - 3 weeks Able to walk 10 min without increased pain - 3 weeks Envelope Folding Machine Adjuster Goals: Able to walk 20 minutes without increased s/s - 5 weeks Oswestry 20% or less - 5 weeks Restore PLOF with max pain 2/10 - 5 weeks LE strength 4+/5 grossly - 5 weeks TTP absent in ITB and L piriformis - 5 weeks Treatment Plan: Modalities to reduce pain, spasms and effusion. Manual therapy to restore motion and function. Therapeutic exercise to improve strength and flexibility. Neuromuscular re-education for posture and balance. Therapeutic activities to return to functional activities of daily living. Electronically signed by: Adán Faust, PT Please sign and return to therapist. Thank you for your referral.
--- NOTE | 2023-11-13 07:41 | MHC.PT.DC ---
[facility] [place] Office [place] Office [place] Office [address] Aletha Burrell [address] [phone] F: [phone] F: [phone] F: [phone] F: [phone] Physical Therapy Discharge Report Diagnosis: s/p R L3-L4 Lumbar microdiskectomy 12/24/22. Date of Surgery: 12/24/22 Date of Evaluation: 04/22/23 Date of Discharge: 07/06/23 Treatments to Date: 5 Cancellations to Date: No Shows to Date: Discharge Status: Independent with HEP Patient Elected to Stop Discharge Summary: Pt stopped in and noted he thinks he can continue on his own at this time. 05/21/23: pt progressing well and responding well to currently program. still has difficulty achieving upright posture with gait. we will continue to address this. 05/15/23: pt attmpted to self d/c to HEP but struggled and returned admitting he was trying to do too much. we will continue with program with edu on right amount of intervention each day and right type Pt reports improvement in posture when walking at end of session. Pt found lumbar stretching reduced some pain, and will start to incorporate these stretches throughout day. Glute med quick to fatigue with core press, modified SLS ex , and hip burner. Recommended to complete hip burner at home in addition to the band exercise given previously to work both open and closed chain. Plan: continue to promote glute med strength to promote SLS ability, add hip flexor stretch Electronically signed by: Adán Faust PT Please sign and return to therapist. Thank you for your referral.
== END 2023-11-13 07:42 | disposition home or self-care (01) ==
LOC: HO.PTCHIC 08:00
PROVIDERS: PCP Nurse Practitioner Family; Visit Provider Physician Assistant
DX: Z98.890 Other specified postprocedural states (principal)
CPT/HCPCS: 97110; 97140; 97163

== ENCOUNTER 2023-06-16 09:09 | Outpatient (AMB) | payer MEDICARE, SELFPAY ==
[2023-06-16 09:36] VITALS: BMI 39.3
--- NOTE | 2023-06-16 09:36 | MHC.OFFVIS ---
Vital Signs 06/16/23 09:36 Height 6 ft 2 in Weight 306 lb BMI 39.3 Intake Visit Reasons: OV-Left knee pain-discuss surgery Allergies morphine [MORPHINE] Allergy (Severe, Verified 06/16/23 09:52) severe aggitation HPI HPI OV-Left knee pain-discuss surgery: Details: Marv is a 67 year old male who presents today for a follow up of his left knee OA. Last injection administered on 04/07/23. This last injection was not helpful. He likes to be active but his pain, weakness and instability is limiting him. He presents today to discuss possible surgical intervention. He has right knee replacement about one year ago and did well. He now describes difficulty walking and engaging in daily exercise. [facility] Medical History Routine medical exam Major depression, recurrent, chronic Major depression, recurrent, chronic Skin cancer CAD (coronary artery disease) Hypertension Hyperlipemia PAF (paroxysmal atrial fibrillation) History of cardioversion Hx of skin cancer, basal cell PTSD (post-traumatic stress disorder) BPH (benign prostatic hyperplasia) AAA (abdominal aortic aneurysm) Anxiety and depression Anemia Diverticulosis GERD (gastroesophageal reflux disease) Sleep apnea Surgical History Status post lumbar microdiscectomy Hx of blepharoplasty History of prostate surgery Hx of arthroscopy of left knee H/O vein stripping (~06/08/21) Hx of blepharoplasty History of prostate surgery Hx of arthroscopy of left knee H/O vein stripping (~06/08/21) Hx of cardiac catheterization H/O umbilical hernia repair History of incision and drainage Hx of tonsillectomy History of esophagogastroduodenoscopy (EGD) History of cardiac radiofrequency ablation Hx of colonoscopy Hx of right knee surgery History of total left hip arthroplasty Family History Father Esophageal cancer Mother Esophageal cancer Social History Household Members: Family Housing: House Are you a primary farm or ranch animal caretaker to a significant other at home: No Do you presently have visiting nurse or other home services: No Patient Tobacco Use Status: Current everyday Tobacco user Smoking Start Date: 09/11/59 Tobacco use type: Cigarette Cigarettes Per Day: 1 Years Smoked: 25 e-Cigarette/Vaping Use: Never Used Second Hand Smoke Exposure: No Substance Use Type: Marijuana Advance Directives Date on File: 04/27/12 service: No Current occupational status: retired Cognitive needs: No Hearing needs: No Vision needs: No Physical Exam Vital Signs: BMI result Body Mass Index 39.3 Const General: no acute distress, alert and awake Orientation/consciousness: patient oriented x3 HEENT Head: Yes normocephalic and Yes atraumatic Mouth: moist mucous membranes Eyes General: appearance normal, both eyes and all related structures EOM: EOMs intact bilaterally Chest Other: no audible wheezing. Resp Other: No audible wheezing Effort & Inspection: normal respiratory effort and able to speak in complete sentences Cardio Other: Radial pulse palpable with no rythmic abnormalities Jugular venous distension: no JVD Back/Spine/Pelvis Cervical Spine: normal cervical lordosis Skin General skin exam: turgor normal Rashes: no rashes Neuro General: patient oriented x3 Extrem Other: TTP medial joint line left knee Mild effusion Psych Appearance: grossly normal Mental Status: mental status grossly normal Speech and movement: Normal speech and movement present Affect: normal affect Attitude: cooperative Results Reviewed Results Reviewed: I personally reviewed relevant radiographs. Right total knee arthroplasty in expected post operative position with no hardware complications or evidence of loosening Left knee with varus pattern OA, severe Assessment & Plan Assessment & Plan (1) Osteoarthritis of right knee: Code(s): M17.11 - Unilateral primary osteoarthritis, right knee Category: Medical Plan: This is a 66 year old man with severe right knee OA. He has pain with daily activity and is unable to ambulate any distance without pain. He is limited in his ability to engage in meaningful activity without pain, which is a problem for him as he has been focused on weight-loss. He attends a gym several times weekly but is limited by pain to primarily the stationary bicycle, gentle free-weights & stretching. He had a successful right TKA last year and I recommend left TKA. He has failed injections, activity modification and NSAIDs. I discussed the risks, benefits, and alternatives including, but not limited to, the risk of pain, infection, stiffness, need for further surgery as well as potential medical complications such as blood clots, pulmonary embolism and cardiac complications. I discussed the recovery timeline and process as well as the importance of PT. Marv is a good candidate for this surgery, and he wishes to proceed with this decision. He will speak with our NN to schedule this procedure. He is on Eliquis for afib. (2) AAA (abdominal aortic aneurysm): Category: Medical (3) CAD (coronary artery disease): Category: Medical (4) PAF (paroxysmal atrial fibrillation): Category: Medical Plan Scribed for Nathan Navarrete MD by Herminio Crowell, medical technologist prn, on 02/14/22 at 9:10 AM, EST. I, Nathan Navarrete MD, have personally reviewed and agreed with the information entered by the medical technologist prn. Coding Level of Care Code Est Pt Level 4 (64881) Diagnoses Osteoarthritis of right knee M17.11 AAA (abdominal aortic aneurysm) I71.40 CAD (coronary artery disease) I25.10 PAF (paroxysmal atrial fibrillation) I48.0
== END 2023-06-16 12:15 | disposition home or self-care (01) ==
PROVIDERS: PCP Nurse Practitioner Family; Visit Provider Orthopaedic Surgery
DX: M17.11 Unilateral primary osteoarthritis, right knee (principal); I71.40 Abdominal aortic aneurysm, without rupture, unspecified; I25.10 Atherosclerotic heart disease of native coronary artery without angina pectoris; I48.0 Paroxysmal atrial fibrillation
CPT/HCPCS: 99214

== ENCOUNTER → 2023-06-16 09:09 | Outpatient (BNVA) | payer MEDICARE, SELFPAY | PROVIDERS: PCP Nurse Practitioner Family; Visit Provider Orthopaedic Surgery | DX: M17.11 Unilateral primary osteoarthritis, right knee (principal); I71.40 Abdominal aortic aneurysm, without rupture, unspecified; I25.10 Atherosclerotic heart disease of native coronary artery without angina pectoris; I10 Essential (primary) hypertension; I48.0 Paroxysmal atrial fibrillation | CPT/HCPCS: 99212 ==

== ENCOUNTER 2023-07-13 09:20 | Emergency (ER) | payer MEDICARE, SELFPAY ==
--- NOTE | ~2023-07-13 | CT_ITS ---
EXAMINATION: CT ABDOMEN AND PELVIS WITH CONTRAST CLINICAL INFORMATION: Abdominal pain and weight loss. COMPARISON: Previous CT of the abdomen and pelvis from 2012 TECHNIQUE: Multidetector volumetric images were obtained from the superior aspect of the liver through the pubic symphysis following administration 85 mL of Omnipaque 350 intravenous contrast. Sagittal and coronal reformatted images were obtained on the technologist's workstation. Oral contrast: Yes This CT examination was performed using dose optimization techniques as appropriate, variously including the following: *Automated exposure control *Adjustment of mA and/or kV according to patient size (this includes techniques or standardized protocols for targeted exams where dose is matched to indication/reason for exam; i.e. extremities or head) *Use of iterative reconstruction technique DLP: 1092 mGy-cm FINDINGS: LUNG BASES: The visualized lung bases are unremarkable. LIVER, GALLBLADDER, AND BILIARY TREE: The liver is normal in size, shape, and attenuation. No focal hepatic lesion or biliary ductal dilatation is present. The gallbladder is unremarkable with no evidence of radiopaque gallstones, gallbladder wall thickening, or obvious pericholecystic inflammatory changes. PANCREAS: Unremarkable. SPLEEN: Unremarkable. ADRENAL GLANDS: Unremarkable. KIDNEYS AND URETERS: The kidneys are normal in size, shape, and attenuation. No hydronephrosis, hydroureter, or calculi seen. No perinephric stranding. BLADDER: Unremarkable. GASTROINTESTINAL TRACT: The small and large bowel are unremarkable. The appendix is unremarkable. There is mild diffuse wall or fold thickening of the proximal stomach. ABDOMINAL WALL: Postsurgical changes in the periumbilical region just above a hernia repair with mesh. There is a small fluid collection deep to the mesh. Small right inguinal hernia containing fat. LYMPH NODES: There are small retroperitoneal lymph nodes. No enlarged lymph nodes. VASCULAR: Unremarkable. PELVIC VISCERA: Unremarkable. OSSEOUS STRUCTURES: Left hip replacement. Degenerative changes of the spine and right hip. CT/CT abdomen pelvis w IV con IMPRESSION: Mild diffuse wall or fold thickening of the proximal stomach. Postsurgical changes in the periumbilical region suggestive of hernia repair with mesh. There is a small fluid collection deep to the mesh. Fleischner guidelines were followed.
[2023-07-13 09:29] VITALS: BP 107/73; PULSE 85; RESP 20; TEMP 36.8; O2SAT 98; BMI 38.1
[2023-07-13 09:59] LABS: MANUAL DIFF FLAG NO
[2023-07-13 10:01] LABS: Basophils Absolute Auto 0.1 X10*3/uL (0.0-0.2); Basophils Percent Auto 0.6 % (0-2); Eosinophils Percent Auto 0.4 % (0-4); Hematocrit 38.4 % (42.0-52.0); Hemoglobin 13.3 g/dl (14.0-18.0); Imm Gran Abs Auto 0.04 X10*3/uL (0.00-0.03); Imm Gran Pct Auto 0.4 % (0.0-0.4); Lymphocytes Absolute Auto 1.6 X10*3/uL (1.2-4.9); Lymphocytes Percent Auto 17.3 % (20-40); Mean Corpuscular HGB Conc 34.6 g/dl (31.0-36.0); Mean Corpuscular Hemoglobin 31.7 pg (27.0-33.0); Mean Corpuscular Volume 91.6 fL (80.0-98.0); Mean Platelet Volume 9.6 fL (9.4-12.4); Monocytes Absolute Auto 0.8 X10*3/uL (0.1-1.2); Neutrophils Absolute Auto 6.9 x10*3/uL (2.0-8.3); Neutrophils Percent Auto 73.3 % (45-73); Platelet Count 284 X10*3/uL (160-400); Red Blood Count 4.19 X10*6/uL (4.60-5.80); Red Cell Distribution Width 13.3 % (11.0-16.0); White Blood Count 9.4 X10*3/uL (4.8-10.8)
[2023-07-13 10:18] LABS: Alanine Aminotransferase 20 U/L (0-40); Albumin Level 4.3 g/dL (3.5-5.0); Alkaline Phosphatase 76 U/L (39-117); Anion Gap 16 (12-20); Aspartate Amino Transferase 20 U/L (5-37); Bilirubin Direct 0.2 mg/dL (0.0-0.5); Bilirubin Total 0.4 mg/dL (0.0-1.0); Blood Urea Nitrogen 9 mg/dL (9-16); Carbon Dioxide 26 mmol/L (22-29); Chloride 102 mmol/L (96-108); Creatinine Clr Calc Pharmacy 141.2; Estimated Glomerular Filt Rate > 60; Glucose Random 98 mg/dL (60-115); Lipase 55 U/L (8-78); Sodium 140 mmol/L (135-145); Total Protein 7.7 g/dL (6.5-8.0)
[2023-07-13 12:52] VITALS: BP 151/73; PULSE 76; RESP 18; TEMP 36.3; O2SAT 99
--- NOTE | 2023-07-13 12:54 | ECG_ITS ---
Test Reason : ABD PAIN Blood Pressure : / mmHG Vent. Rate : 066 BPM Atrial Rate : 066 BPM P-R Int : 158 ms QRS Dur : 098 ms QT Int : 442 ms P-R-T Axes : 027 048 030 degrees QTc Int : 463 ms Sinus rhythm with Premature atrial complexes Otherwise normal ECG No previous ECGs available Referred By: Alex Rockwell Electronically Signed By:NOEMI CALVILLO MD
--- NOTE | 2023-07-13 12:54 | ED_ITS ---
HPI - General Adult General Chief complaint: Abdominal Pain Stated complaint: Dry heaves/Abd pain Time Seen by Provider: 07/13/23 14:03 Source: patient and family Mode of arrival: ambulatory Limitations: no limitations History of Present Illness ED Provider: Pascale Reyes NP HPI narrative: Patient is a 67-year-old male who presents to the emergency department for evaluation. He reports 2-3 weeks of symptoms including vague abdominal fullness, discomfort to the abdominal midline, decreased oral intake; able to tolerate liquids and solids but consuming much less than he typically would, constipation reporting small movements requiring straining, and unintentional 7 lb weight loss over 2 weeks. Reports a remote history of an umbilical hernia with mesh repair approximately 20 years ago. Related Data Home Medications ?Medication ?Instructions ?Recorded ?Confirmed lisinopril 10 mg tablet 10 mg PO DAILY 11/24/19 05/06/23 omeprazole 20 mg tablet,delayed 20 mg PO DAILY 11/24/19 05/06/23 release multivitamin 1 tab PO DAILY 09/27/20 05/06/23 omega-3 fatty acids 1,000 mg 1,000 mg PO BID 09/27/20 05/06/23 capsule (Fish Oil Concentrate) apple cider vinegar 500 mg tablet 500 mg PO BID 09/12/21 05/06/23 magnesium 250 mg tablet 250 mg PO BEDTIME 09/12/21 05/06/23 Previous Rx's ?Medication ?Instructions ?Recorded CPAP #1 ea 12/30/19 dronedarone 400 mg tablet (Multaq) 400 mg PO BID 90 days #180 tabs 02/27/21 apixaban 5 mg tablet (Eliquis) 5 mg PO BID 90 days #180 tabs 03/27/22 walker #1 ea 04/22/22 acetaminophen 325 mg tablet 650 mg (2 x 325 mg) PO Q6H PRN 04/26/22 Pain, Mild (Pain Scale 1-3) 30 days #240 tabs docusate sodium 100 mg capsule 100 mg PO BID #20 caps 12/24/22 (Colace) rosuvastatin 20 mg tablet 20 mg PO DAILY #90 tabs 03/10/23 tramadol 50 mg tablet 50 mg PO DAILY PRN pain 20 days 06/17/23 #20 tabs sertraline 100 mg tablet 150 mg (1.5 x 100 mg) PO QAM 90 07/04/23 days #135 tabs magnesium citrate 150 ml PO DAILY PRN constipation 07/13/23 #296 mL Allergies Allergy/AdvReac Type Severity Reaction Status Date / Time morphine [MORPHINE] Allergy Severe severe Verified 07/13/23 09:32 aggitation [facility] Past Medical History Attestation statement: The following information was validated with the patient. Source: old records reviewed Medical History Routine medical exam Major depression, recurrent, chronic Major depression, recurrent, chronic Skin cancer CAD (coronary artery disease) Hypertension Hyperlipemia PAF (paroxysmal atrial fibrillation) History of cardioversion Hx of skin cancer, basal cell PTSD (post-traumatic stress disorder) BPH (benign prostatic hyperplasia) AAA (abdominal aortic aneurysm) Anxiety and depression Anemia Diverticulosis GERD (gastroesophageal reflux disease) Sleep apnea Surgical History Status post lumbar microdiscectomy Hx of blepharoplasty History of prostate surgery Hx of arthroscopy of left knee H/O vein stripping (~06/08/21) Hx of blepharoplasty History of prostate surgery Hx of arthroscopy of left knee H/O vein stripping (~06/08/21) Hx of cardiac catheterization H/O umbilical hernia repair History of incision and drainage Hx of tonsillectomy History of esophagogastroduodenoscopy (EGD) History of cardiac radiofrequency ablation Hx of colonoscopy Hx of right knee surgery History of total left hip arthroplasty Family History Family History Father Esophageal cancer Mother Esophageal cancer Social History Social History Household Members: Family Housing: House Are you a primary career portals teacher to a significant other at home: No Do you presently have visiting nurse or other home services: No Alcohol intake: former Patient Tobacco Use Status: Current everyday Tobacco user Smoking Start Date: 09/11/59 Tobacco use type: Cigarette Cigarettes Per Day: 1 Years Smoked: 25 Smoked in Last 30 Days: Yes e-Cigarette/Vaping Use: Never Used Second Hand Smoke Exposure: No Use of substances other than those prescribed or required for medical reasons: Yes Substance Use Type: Marijuana Advance Directives: Yes Advance Directives on File: Yes Advance Directives Date on File: 04/27/12 service: No Current occupational status: retired Cognitive needs: No Hearing needs: No Vision needs: No Physical Exam ED Vital Signs: Vital Signs - 24 hr 07/13/23 12:52 07/13/23 17:27 Temperature 97.3 F 100 F Pulse Rate 76 68 Respiratory Rate 18 16 Blood Pressure 151/73 H 148/81 H Pulse Oximetry 99 98 Oxygen Delivery Method Room Air Room Air BMI result Body Mass Index 38.1 Appearance: Alert.?Oriented to person, place and time. No acute distress.?Normal affect. Eyes: Pupils equal, round and reactive to light.? ENT: Pharynx normal.?? Neck: Normal inspection.? Neck supple.?? CVS: Heart sounds normal. Normal heart rate and rhythm.? Pulses normal.?? Respiratory: No respiratory distress.? Lung sounds clear to auscultation bilaterally?? Abdomen: Soft and non-tender. Normoactive bowel sounds. ?? Skin: Skin warm and dry.? Normal skin color.? ?? Extremities: No lower extremity edema.? Neuro: Moves all extremities spontaneously. Sensation intact bilaterally. Ambulates with normal steady gait. Course Course Course Narrative: RME: DOne by NISH Rockwell. Patient presents ED for 2 weeks of fullness to abdomen 2 weeks and weight loss. Patient states family history of stomach cancer and wants to be evaluated is concerned. Patient denies any abdominal pain. Labs drawn ordered. Abdominal CT scan ordered from Triage due to family history of CAncer. Parents and sister had stomach, CA, pancreatic CA, and colon CA Reevaluation(s) Reevaluation #1: Patient received in sign out from EVELIO De Santiago pending PO trial. Patient reports symptoms have improved and was able to tolerate PO food and drink in the ED. Feel he is stable for discharge home at this time. Time: 19:17 Medications Administered Discontinued Medications Generic Name Dose Route Start Last Admin Trade Name Freq PRN Reason Stop Dose Admin Al Hydroxide/Mg Hydroxide 30 ml 07/13/23 16:30 07/13/23 16:57 Magnesium Hydrox/Alum Hydrox 30 Ml Oral.Susp PO 07/13/23 16:31 30 ml ONCE ONE Administration Famotidine 20 mg 07/13/23 16:30 07/13/23 16:57 Famotidine 20 Mg Tablet PO 07/13/23 16:31 20 mg ONCE ONE Administration Sodium Chloride 1,000 mls @ 999 mls/hr 07/13/23 14:45 07/13/23 16:59 Ns IV 07/13/23 15:45 Infused .Q1H1M ALEXY Infusion Ceftriaxone Sodium 1 gm/ 50 mls @ 100 mls/hr 07/13/23 14:38 07/13/23 16:59 Sodium Chloride IV 07/13/23 15:07 Infused ONCE ONE Infusion Iohexol 85 ml 07/13/23 13:39 07/13/23 13:40 Iohexol 350 Mg/Ml 100 Ml Infus..Btl IV 07/13/23 13:40 85 ml ONCE ONE Administration Lidocaine HCl 15 ml 07/13/23 16:30 07/13/23 16:57 Lidocaine Hcl Viscous 2 % 15 Ml Solution MUCOUS MEM 07/13/23 16:31 15 ml ONCE ONE Administration Medical Decision Making Medical Decision Making MDM Narrative: Patient is a 67-year-old male with past medical history of depression, CAD, hypertension, hyperlipidemia, basal cell carcinoma, PTSD, BPH, AAA, anemia, diverticulosis, GERD, sleep apnea, osteoarthritis, umbilical hernia repair with mesh, lumbar microdiskectomy in 12/30/2022 presenting for evaluation of abdominal fullness/discomfort, decreased appetite and nausea. Mild midline tenderness upon deep palpation. CBC without leukocytosis, mild normocytic anemia. No electrolyte derangement. No BRANDY. LFTs and lipase within normal range. Urinalysis concerning for urinary tract infection, received a dose of Rocephin 1 g IV in the emergency department. CT revealing mild diffuse wall thickening of the proximal stomach, and a small fluid collection deep to the mesh of periumbilical hernia repair. Consulted with General surgery regarding the fluid collection, spoke with Dr. Rudolph, does not feel there is any surgical intervention warranted or that the fluid collection mentioned is the etiology for his symptoms, she evaluated him at bedside and advises magnesium citrate for constipation. Suspect at this time symptoms most likely secondary to gastritis, the setting of his history of acid reflux. He reports taking omeprazole 10 mg daily. Will trial GI cocktail and re-evaluate. Discussed outpatient follow-up with his nurse practitioner home assessments for possible EGD for any persistent symptoms. Patient signed out to Jeremiah Villa NP pending re-evaluation, I anticipate discharge home Differential Diagnosis Differential Diagnoses: The differential diagnosis associated with the presentation includes (Gastritis, gastroenteritis, cholecystitis, pancreatitis, obstruction, diverticulitis, IBS) Admission/Observation Consideration of admission/observation: Escalation of care including admission/observation considered Consult Healthcare Provider Management of the patient was discussed with: Agriculture Mechanic (See narrative above) Lab Data MDM Lab Attestation statement: I reviewed the patient's lab results. (See narrative above) 07/13/23 09:40 07/13/23 09:40 Labs: Lab Results 07/13/23 07/13/23 07/13/23 Range/Units 09:40 13:02 14:26 WBC 9.4 (4.8-10.8) X10*3/uL RBC 4.19 L (4.60-5.80) X10*6/uL Hgb 13.3 L (14.0-18.0) g/dl Hct 38.4 L (42.0-52.0) % MCV 91.6 (80.0-98.0) fL MCH 31.7 (27.0-33.0) pg MCHC 34.6 (31.0-36.0) g/dl RDW 13.3 (11.0-16.0) % Plt Count 284 D (160-400) X10*3/uL MPV 9.6 (9.4-12.4) fL Immature Gran % (Auto) 0.4 (0.0-0.4) % Neut % (Auto) 73.3 H (45-73) % Lymph % (Auto) 17.3 L (20-40) % [place] % (Auto) 8.0 (2-11) % Eos % (Auto) 0.4 (0-4) % Baso % (Auto) 0.6 (0-2) % Lymph # (Auto) 1.6 (1.2-4.9) X10*3/uL [place] # (Auto) 0.8 (0.1-1.2) X10*3/uL Eos # (Auto) 0.0 (0.0-0.4) X10*3/uL Baso # (Auto) 0.1 (0.0-0.2) X10*3/uL Abs Immat Gran (auto) 0.04 H (0.00-0.03) X10*3/uL Absolute Neuts (auto) 6.9 (2.0-8.3) x10*3/uL Absolute Nucleated RBC 0.000 (0.0-0.012) X10*3/uL Nucleated RBC % (auto) 0.0 (0.0-0.2) /100WBC Sodium 140 (135-145) mmol/L Potassium 4.0 (3.3-5.1) mmol/L Chloride 102 (96-108) mmol/L Carbon Dioxide 26 (22-29) mmol/L Anion Gap 16 (12-20) BUN 9 (9-16) mg/dL Creatinine 0.72 (0.5-1.4) mg/dL Estim Creat Clear Calc 141.2 Estimated GFR > 60 Random Glucose 98 (60-115) mg/dL Calcium 10.0 D (8.4-10.2) mg/dL Magnesium 2.2 (1.6-2.6) mg/dL Total Bilirubin 0.4 (0.0-1.0) mg/dL Direct Bilirubin 0.2 (0.0-0.5) mg/dL AST 20 (5-37) U/L ALT 20 (0-40) U/L Alkaline Phosphatase 76 (39-117) U/L Troponin I High Sens 3.5 (<3.5-35.0) ng/L Total Protein 7.7 (6.5-8.0) g/dL Albumin 4.3 (3.5-5.0) g/dL Lipase 55 (8-78) U/L Urine Color Yellow Urine Appearance Clear Urine pH 7.5 (5.0-9.0) Ur Specific [place] >= 1.030 H (1.005-1.025) Urine Protein Negative (Neg-Trace) mg/dL Urine Glucose (UA) Negative (Negative) mg/dL Urine Ketones Negative (Negative) mg/dL Urine Blood Negative (Negative) Urine Nitrite Negative (Negative) Ur Leukocyte Esterase Moderate (2+) H (Negative) Urine RBC 0-2 (0-2) /HPF Urine WBC 6-10 H (0-5) /HPF Ur Squamous Epith Cells 0-2 (0-2) /HPF Urine Bacteria 2+ (None Seen) Hyaline Casts 0-2 (0-2) /LPF Independent Interpretation I performed an independent interpretation of an: CT Scan (No diverticulitis) Radiology Impression Discussion of test interpretation with radiology: I have reviewed the radiologist's reading. Radiologist Impression: CT/CT abdomen pelvis w IV con IMPRESSION: Mild diffuse wall or fold thickening of the proximal stomach. Postsurgical changes in the periumbilical region suggestive of hernia repair with mesh. There is a small fluid collection deep to the mesh. Independent Historian Clinical information obtained from an independent historian. History obtained from or confirmed by: Spouse External Record Review External record reviewed: Outpatient record Discharge Plan Discharge Clinical Impression: Gastritis, Constipation Patient Disposition: Home, Self-Care Instructions: Gastritis (ED), Constipation (ED) Additional Instructions: Increase omeprazole to 20 mg daily. Avoid triggers such as fatty foods, spicy foods, tomatoes, onions, coffee, tea, chocolate, and alcohol. Remaining upright after meals for 1-2 hours. Avoid eating at least 3 hours before bedtime. Try sleeping on an incline if possible. Magnesium citrate for constipation, take half the bottle and repeat in 3 hours if needed for sufficient bowel movement. Follow-up with GI for further evaluation, they may consider doing an endoscopy. Prescriptions: New magnesium citrate Solution 150 ml PO DAILY PRN (Reason: constipation) Qty: 296 0RF No Action (DME) CPAP See Rx Instructions .Route .MEDSUPPLY Qty: 1 0RF Rx Instructions: As directed, for sleep apnea Eliquis 5 mg tablet 5 mg PO BID 90 Days Qty: 180 3RF Hold Instructions: Resume on 12/27/22. (DME) walker Misc See Rx Instructions .MEDSUPPLY Qty: 1 0RF Rx Instructions: Folding Front wheeled walker rosuvastatin 20 mg tablet 20 mg PO DAILY Qty: 90 3RF tramadol 50 mg tablet 50 mg PO DAILY PRN (Reason: pain) 20 Days Qty: 20 0RF sertraline 100 mg tablet 150 mg PO QAM 90 Days Qty: 135 1RF lisinopril 10 mg Tablet 10 mg PO DAILY omeprazole 20 mg Tablet,Delayed Release (Dr/Ec) 20 mg PO DAILY acetaminophen 325 mg Tablet 650 mg PO Q6H PRN (Reason: Pain, Mild (Pain Scale 1-3)) 30 Days Qty: 240 0RF docusate sodium [Colace] 100 mg capsule 100 mg PO BID Qty: 20 0RF omega-3 fatty acids [Fish Oil Concentrate] 1,000 mg capsule 1,000 mg PO BID Hold Instructions: Resume on 05/27/22. multivitamin Tablet 1 tab PO DAILY magnesium 250 mg tablet 250 mg PO BEDTIME apple cider vinegar 500 mg tablet 500 mg PO BID Multaq 400 mg tablet 400 mg PO BID 90 Days Qty: 180 3RF Discharge Date/Time: 07/13/23 19:45 Print Language: [place]
[2023-07-13 13:19] LABS: Magnesium 2.2 mg/dL (1.6-2.6)
[2023-07-13 13:31] LABS: Troponin-I High Sensitivity 3.5 ng/L (<3.5-35.0)
[2023-07-13] MEDS: iohexoL 350 MG/ML 100 ML INFUS..BTL 85 ML IV (13:40)
[2023-07-13 14:31] LABS: Appearance Urine Clear; Color Urine Yellow; Glucose Urine UA Negative (Negative); Leukocyte Esterase Urine Moderate (2+) (Negative); Nitrite Urine Negative (Negative); PH 7.5 (5.0-9.0); Specific Gravity - Urine >= 1.030 (1.005-1.025); UMIC TRIGGER UACC YES; Urine Blood Negative (Negative); Urine Ketones Negative (Negative); Urine Protein Negative (Neg-Trace)
[2023-07-13 14:36] LABS: Bacteria Urine 2+ (None Seen); Hyaline Casts Urine 0-2 /LPF (0-2); RBC Urine 0-2 /HPF (0-2); Squamous Epithelial Cell Urine 0-2 /HPF (0-2); UACC Culture Trigger YES
[2023-07-13] MEDS: cefTRIAXone sodium 1 GM in 0.9 % Sodium Chloride 50 ML IV (15:58)
[2023-07-13] MEDS: 0.9 % Sodium Chloride 1,000 ML 999 ML IV (15:59)
[2023-07-13] MEDS: Lidocaine HCl Viscous 2 % 15 ML SOLUTION MUCOUS MEM (16:57)
[2023-07-13] MEDS: Famotidine 20 MG TABLET PO (16:57)
[2023-07-13] MEDS: Magnesium Hydrox/Alum Hydrox 30 ML ORAL.SUSP PO (16:57)
[2023-07-13 17:27] VITALS: BP 148/81; PULSE 68; RESP 16; TEMP 37.7; O2SAT 98
== END 2023-07-13 19:45 | disposition home or self-care (01) ==
PROVIDERS: Nurse Practitioner Family; Physician Assistant; Emergency Provider Emergency Medicine; PCP Nurse Practitioner Family
DX: K59.00 Constipation, unspecified (principal); K29.70 Gastritis, unspecified, without bleeding; R63.4 Abnormal weight loss; Z68.38 Body mass index [BMI] 38.0-38.9, adult; I10 Essential (primary) hypertension; I25.10 Atherosclerotic heart disease of native coronary artery without angina pectoris; I48.0 Paroxysmal atrial fibrillation; Z79.899 Other long term (current) drug therapy
CPT/HCPCS: 36415; 74177; 80048; 80076; 81001; 83690; 83735; 84484; 85025; 87086; 87088; 87186; 93005; 96365; 99284; J0696; Q9967

== ENCOUNTER → 2023-07-13 12:54 | Outpatient (BNV) | payer MEDICARE, SELFPAY | PROVIDERS: Emergency Provider Emergency Medicine; PCP Nurse Practitioner Family; Visit Provider Internal Medicine Cardiovascular Disease | DX: R10.9 Unspecified abdominal pain (principal) | CPT/HCPCS: 93010 ==

== ENCOUNTER → 2023-08-01 08:41 | Outpatient (BNVA) | payer MEDICARE, SELFPAY | PROVIDERS: PCP Nurse Practitioner Family | DX: Z01.818 Encounter for other preprocedural examination (principal) ==

== ENCOUNTER 2023-08-09 07:29 | Outpatient (REF) | payer MEDICARE, SELFPAY ==
[2023-08-09 07:47] LABS: MANUAL DIFF FLAG NO
[2023-08-09 09:12] LABS: Basophils Percent Auto 0.6 % (0-2); Eosinophils Absolute Auto 0.1 X10*3/uL (0.0-0.4); Eosinophils Percent Auto 1.9 % (0-4); Hematocrit 37.8 % (42.0-52.0); Hemoglobin 12.5 g/dl (14.0-18.0); Imm Gran Abs Auto 0.02 X10*3/uL (0.00-0.03); Imm Gran Pct Auto 0.3 % (0.0-0.4); Lymphocytes Absolute Auto 1.5 X10*3/uL (1.2-4.9); Lymphocytes Percent Auto 24.8 % (20-40); Mean Corpuscular HGB Conc 33.1 g/dl (31.0-36.0); Mean Corpuscular Hemoglobin 31.1 pg (27.0-33.0); Mean Platelet Volume 10.2 fL (9.4-12.4); Monocytes Absolute Auto 0.6 X10*3/uL (0.1-1.2); Monocytes Percent Auto 9.1 % (2-11); Neutrophils Absolute Auto 3.9 x10*3/uL (2.0-8.3); Neutrophils Percent Auto 63.3 % (45-73); Platelet Count 246 X10*3/uL (160-400); Red Blood Count 4.02 X10*6/uL (4.60-5.80); Red Cell Distribution Width 13.4 % (11.0-16.0); White Blood Count 6.2 X10*3/uL (4.8-10.8)
[2023-08-09 09:14] LABS: Appearance Urine Cloudy; Color Urine Yellow; Glucose Urine UA Negative (Negative); Leukocyte Esterase Urine Large (3+) (Negative); Nitrite Urine Negative (Negative); PH 7.5 (5.0-9.0); Specific Gravity - Urine 1.015 (1.005-1.025); UMIC TRIGGER UACC YES; Urine Blood Negative (Negative); Urine Ketones Negative (Negative); Urine Protein Negative (Neg-Trace)
[2023-08-09 09:35] LABS: Bacteria Urine 4+ (None Seen); Hyaline Casts Urine 0-2 /LPF (0-2); RBC Urine 0-2 /HPF (0-2); Squamous Epithelial Cell Urine 0-2 /HPF (0-2); UACC Culture Trigger YES; WBC Urine >50 /HPF (0-5)
[2023-08-09 09:44] LABS: Alanine Aminotransferase 14 U/L (0-40); Albumin Level 4.1 g/dL (3.5-5.0); Alkaline Phosphatase 79 U/L (39-117); Anion Gap 13 (12-20); Aspartate Amino Transferase 18 U/L (5-37); Bilirubin Total 0.2 mg/dL (0.0-1.0); Blood Urea Nitrogen 9 mg/dL (9-16); Calcium 9.4 mg/dL (8.4-10.2); Carbon Dioxide 26 mmol/L (22-29); Chloride 105 mmol/L (96-108); Cholesterol 127 mg/dL (<200); Estimated Glomerular Filt Rate > 60; Glucose Fasting 106 mg/dL (60-99); HDL Cholesterol 45 mg/dL (>40); LDL Cholesterol Calculated 61 mg/dL (<100); Potassium 4.2 mmol/L (3.3-5.1); Sodium 140 mmol/L (135-145); Total Protein 7.3 g/dL (6.5-8.0); Triglycerides 106 mg/dL (<150)
[2023-08-09 10:04] LABS: TSH reflex Free T4 0.86 uIU/mL (0.32-4.0)
[2023-08-09 10:11] LABS: Prostate Specific Antigen Scr 0.88 ng/mL (<0.05-4.0)
== END 2023-08-09 07:30 | disposition home or self-care (01) ==
LOC: HO.LAB 07:29
PROVIDERS: PCP Nurse Practitioner Family; Visit Provider Nurse Practitioner Family
DX: I10 Essential (primary) hypertension (principal); R82.90 Unspecified abnormal findings in urine; Z12.5 Encounter for screening for malignant neoplasm of prostate
CPT/HCPCS: 36415; 80053; 80061; 81001; 84153; 84443; 85025; 87086; 87088; 87186

== ENCOUNTER 2023-08-11 12:45 | Outpatient (AMB) | payer MEDICARE, SELFPAY ==
--- NOTE | 2023-08-11 12:59 | MHC.PC.OV ---
Vital Signs 08/11/23 13:01 Height 6 ft 2 in Weight 290 lb BMI 37.2 BP 122/76 Blood Pressure Location Rt brachial Position Sitting Pulse 87 Pulse Source Pulse Oximeter Pulse Oximetry (%) 98 Oxygen Delivery Method Room Air Intake Visit Reasons: PreOp-Ortho CBC w/diff,BMP&EKG Intake Note: pt is here for pre-op for orthopedic surgery. Left knee replacement Allergies morphine [MORPHINE] Allergy (Severe, Verified 08/11/23 13:29) severe aggitation Medication List - Last Reconciled 08/11/23 by RISA Florez apixaban (Eliquis) 5 mg PO BID 90 days [CPAP As directed, for sleep apnea] docusate sodium (Colace) 100 mg PO BID dronedarone (Multaq) 400 mg PO BID 90 days lisinopril 10 mg PO DAILY multivitamin 1 tab PO DAILY omeprazole 20 mg PO DAILY rosuvastatin 20 mg PO DAILY sertraline 150 mg (1.5 x 100 mg) PO QAM 90 days walker Folding Front wheeled walker Tobacco use date assessed: 08/11/23 Dental Screening Dental Screen Date: 05/06/23 HPI HPI Comments History of Present Illness Details Patient is a 67-year-old male who I am meeting for the 1st time in for preoperative clearance. Patient is having a left knee total replacement in 3 weeks. Patient has up-to-date CBC, CMP, will obtain EKG in office today. Patient was found to be slightly anemic, will start him on iron supplementation. Patient has a past medical history significant for Proximal AFib: Patient currently utilizing Eliquis, Multaq, patient is establish care with Cardiology. Patient has upcoming appointment with Cardiology to assess cardiac risk for left knee replacement surgery. Patient reports he has not been in AFib for over 4 years. Hypertension: Utilizing lisinopril 10 mg p.o. daily. GERD: Currently utilizing omeprazole 20 mg p.o. daily. Depression: Utilizing 150 mg sertraline p.o. daily. Hyperlipidemia: Controlled with rosuvastatin 20 mg p.o. daily Gastric reflux: Utilizing omeprazole 20 mg p.o. daily. [facility] Medical History (Updated 08/12/23 @ 10:33 by RISA Florez) Routine medical exam Major depression, recurrent, chronic Major depression, recurrent, chronic Skin cancer CAD (coronary artery disease) Hypertension Hyperlipemia PAF (paroxysmal atrial fibrillation) History of cardioversion Hx of skin cancer, basal cell PTSD (post-traumatic stress disorder) BPH (benign prostatic hyperplasia) AAA (abdominal aortic aneurysm) Anxiety and depression Anemia Diverticulosis GERD (gastroesophageal reflux disease) Sleep apnea Surgical History Status post lumbar microdiscectomy Hx of blepharoplasty History of prostate surgery Hx of arthroscopy of left knee H/O vein stripping (~06/08/21) Hx of blepharoplasty History of prostate surgery Hx of arthroscopy of left knee H/O vein stripping (~06/08/21) Hx of cardiac catheterization H/O umbilical hernia repair History of incision and drainage Hx of tonsillectomy History of esophagogastroduodenoscopy (EGD) History of cardiac radiofrequency ablation Hx of colonoscopy Hx of right knee surgery History of total left hip arthroplasty Family History Father Esophageal cancer Mother Esophageal cancer Social History Household Members: Family Housing: House Are you a primary medicare nurse to a significant other at home: No Do you presently have visiting nurse or other home services: No Alcohol intake: former Patient Tobacco Use Status: Current everyday Tobacco user Smoking Start Date: 09/11/59 Tobacco use type: Cigarette Cigarettes Per Day: 1 Years Smoked: 25 e-Cigarette/Vaping Use: Never Used Second Hand Smoke Exposure: No Substance Use Type: Marijuana Advance Directives Date on File: 04/27/12 service: No Current occupational status: retired Cognitive needs: No Hearing needs: No Vision needs: No Questionnaire Thrive Questionnaire Date Thrive assessed: 05/06/23 AUDIT C Alcohol Use Questionnaire (AUDIT-C) 1. How often do you have a drink containing alcohol?: Never 3. How often do you have six or more drinks on one occasion?: Never Total Score: 0 Score Reviewed/Action Taken: Yes DANIEL-7 AMB Questionnaire DANIEL-7 Date DANIEL - 7 assessed: 05/06/23 Source: Developed by Drs. Gamaliel Good, Yolanda Martinez, Jacob Johnston and colleagues, with an educational marvel from [employer]. Review of Systems Const All systems reviewed & are unremarkable except as noted in HPI and below Denies chills and Denies fever(s) Card Denies chest pain and Denies dyspnea Resp Denies chest congestion, Denies cough and Denies dyspnea GI Denies nausea and Denies vomiting Reports urinary urgency Physical exam (Primary Care) Vital Signs: Last Vital Signs Pulse 87 08/11/23 13:01 BP 122/76 08/11/23 13:01 Pulse Ox 98 08/11/23 13:01 Oxygen Delivery Method Room Air 08/11/23 13:01 Care Plan Goal for BP management: Blood pressure is controlled. BMI result Body Mass Index 37.2 Tobacco/Smoking Status: Tobacco use Status Tobacco use date assessed 08/11/23 08/11/23 13:03 Patient Tobacco Use Status Current everyday Tobacco 08/11/23 13:03 Tobacco use type Cigarette 08/11/23 13:03 e-Cigarette/Vaping Use Never Used 08/11/23 13:03 Thrive Assessment: Date of Thrive Assessment Date Thrive assessed 05/06/23 08/11/23 13:03 Const Other: Appearance: Alert.? Oriented X3.? No acute distress.? Head: Normocephalic, atraumatic, no step-offs or deformities CVS: Normal heart rate and rhythm.? Pulses normal.? Respiratory: No respiratory distress.? Breath sounds normal.? Abdomen: Soft and nontender.? Skin: Skin warm and dry.? Normal skin color.? Normal skin turgor.? Extremities: No lower extremity edema.? +Right knee replacement. +Crepitus to left knee. Neuro: Oriented X 3.? No motor deficit.? No sensory deficit. CN 2-12 intact Results Reviewed Results Reviewed: WBC 6.2 4.8-10.8 X10*3/uL RBC 4.02 L 4.60-5.80 X10*6/uL HGB 12.5 L 14.0-18.0 g/dl HCT 37.8 L 42.0-52.0 % MCV 94.0 80.0-98.0 fL MCH 31.1 27.0-33.0 pg MCHC 33.1 31.0-36.0 g/dl RDW 13.4 11.0-16.0 % PLT 246 160-400 X10*3/uL MPV 10.2 9.4-12.4 fL Neut Pct Auto 63.3 45-73 % ImGran Pct Auto 0.3 0.0-0.4 % Lymp Pct Auto 24.8 20-40 % Towner Pct Auto 9.1 2-11 % Eos Pct Auto 1.9 0-4 % Baso Pct Auto 0.6 0-2 % NRBC Pct Auto 0.0 0.0-0.2 /100WBC ANC Neut Abs # 3.9 2.0-8.3 x10*3/uL ImGran Abs Auto 0.02 0.00-0.03 X10*3/uL Lymph Abs Auto 1.5 1.2-4.9 X10*3/uL Towner Abs Auto 0.6 0.1-1.2 X10*3/uL Eos Abs Auto 0.1 0.0-0.4 X10*3/uL Baso Abs Auto 0.0 0.0-0.2 X10*3/uL NRBC Abs Auto 0.000 0.0-0.012 X10*3/uL Sodium 140 135-145 mmol/L Potassium 4.2 3.3-5.1 mmol/L CL 105 96-108 mmol/L CO2 26 22-29 mmol/L Gap 13 12-20 BUN 9 9-16 mg/dL Creat 0.73 0.5-1.4 mg/dL EGFR > 60 NOTE: For -[place] individuals, multiply the result by 1.210. Chronic Kidney Disease: Estimated GFR < 60 mL/min/1.73m2 Severe Kidney Disease: Estimated GFR < 15 mL/min/1.73m2 FBS 106 H 60-99 mg/dL A fasting glucose from 100-125 mg/dl is considered impaired (pre-diabetes). CA 9.4 8.4-10.2 mg/dL Total Bili 0.2 0.0-1.0 mg/dL AST (GOT) 18 5-37 U/L ALT (GPT) 14 0-40 U/L Protein, Total 7.3 6.5-8.0 g/dL Alb 4.1 3.5-5.0 g/dL Triglyceride 106 <150 mg/dL Desirable Triglyceride: less than 150 mg/dL Borderline High Triglyceride 150-199 mg/dL High Triglyceride: 200-499 mg/dL Very High Triglyceride: greater than or equal to 5OO mg/dL Cholesterol 127 <200 mg/dL Desirable Cholesterol: less than 200 mg/dL Borderline High Cholesterol: 200-239 mg/dL High Cholesterol: greater than 239 mg/dL LDL Calculated 61 <100 mg/dL Desirable LDL: less than 100 mg/dL Near Optimal/Above Optimal LDL: 110-129 mg/dL Borderline High LDL: 130-159 mg/dL High LDL: 160-189 mg/dL Very High LDL: greater than or equal to 190 mg/dL HDL 45 >40 mg/dL Desirable HDL: greater than 40 mg/dL Note: This HDL assay may give artificially low results in patients with liver disease. Alk Phos 79 39-117 U/L TSH 0.86 0.32-4.0 uIU/mL Assessment and Plan Assessment & Plan (1) Pre-op evaluation: Comment: Patient had recent CBC and CMP. He has an upcoming appointment with Cardiology, will defer to Cardiology for cardiac risk assessment for operation. Patient has been informed that he will need to stop Eliquis prior to procedure. He will need to verify this with cardiology. Patient has up-to-date CBC, CMP, will obtain EKG in office today. Patient was found to be slightly anemic, will start him on iron supplementation. Patient has a past medical history significant for Proximal AFib: Patient currently utilizing Eliquis, Multaq, patient is establish care with Cardiology. Patient has upcoming appointment with Cardiology to assess cardiac risk for left knee replacement surgery. Patient reports he has not been in AFib for over 4 years. Hypertension: Utilizing lisinopril 10 mg p.o. daily. GERD: Currently utilizing omeprazole 20 mg p.o. daily. Depression: Utilizing 150 mg sertraline p.o. daily. Hyperlipidemia: Controlled with rosuvastatin 20 mg p.o. daily. Gastric reflux: Utilizing omeprazole 20 mg p.o. daily. Code(s): Z01.818 - Encounter for other preprocedural examination (2) Urinary tract infection: Comment: Patient has been started on Bactrim P.O. b.i.d. for 3 days. Code(s): N39.0 - Urinary tract infection, site not specified Qualifiers: Urinary tract infection type: acute cystitis Hematuria presence: without hematuria Qualified Code(s): N30.00 - Acute cystitis without hematuria Plan: Take your medications as prescribed. If you were prescribed antibiotics today, it is important that you take your medication to their entirety, do not skip any doses, do not finish them early. Follow-up with your primary care provider this week. Present to the emergency department with new or worsening symptoms. Such as fevers, chills, chest pain, shortness of breath, nausea, vomiting, dizziness, headache, vision changes, lethargy In case of emergency call 911 (3) Anemia: Comment: Patient started on ferrous fumarate 325 PO daily. Will redraw in 3 months. Code(s): D64.9 - Anemia, unspecified Qualifiers: Anemia type: unspecified type Qualified Code(s): D64.9 - Anemia, unspecified Orders: Orders AMB EKG-In Office 08/11/23 Z13.6 - Encounter for screening for cardiovascular disorders UA CC w/rflx Micro + Cult Today N39.0 - Urinary tract infection, site not specified Medications: New amoxicillin-pot clavulanate 500-125 mg 1 tab PO Q12H 14 tabs 0RF ferrous fumarate 325 mg PO DAILY 90 tabs 0RF Coding Level of Care Code Est Pt Level 3 (64779) Diagnoses Pre-op evaluation Z01.818 Acute cystitis without hematuria N30.00 Urinary tract infection type: acute cystitis Hematuria presence: without hematuria Anemia, unspecified type D64.9 Anemia type: unspecified type Time Spent (min) 25
[2023-08-11 13:01] VITALS: BP 122/76; PULSE 87; O2SAT 98; BMI 37.2
== END 2023-08-11 13:40 | disposition home or self-care (01) ==
PROVIDERS: PCP Nurse Practitioner Family; Visit Provider Nurse Practitioner Primary Care
DX: N30.00 Acute cystitis without hematuria (principal); D64.9 Anemia, unspecified; Z01.818 Encounter for other preprocedural examination
CPT/HCPCS: 99213

== ENCOUNTER 2023-08-21 08:08 | Outpatient (AMB) | payer MEDICARE, SELFPAY ==
[2023-08-21 08:27] VITALS: BP 120/64; PULSE 70; BMI 36.8
--- NOTE | 2023-08-21 08:27 | A.OFFVIS_ITS ---
Vital Signs 08/21/23 08:27 Height 6 ft 2 in Weight 287 lb 0.67 oz BMI 36.8 BP 120/64 Blood Pressure Location Lt brachial Position Sitting Pulse 70 Pulse Source Monitor Intake Visit Reasons: 6 mth f/up w/ ekg Brand Lead Required: No Accompanied by: Self / Same As Patient Allergies morphine [MORPHINE] Allergy (Severe, Verified 08/11/23 13:29) severe aggitation Medication List - Last Reconciled 08/21/23 by Cristopher Schuster MD apixaban (Eliquis) 5 mg PO BID 90 days [CPAP As directed, for sleep apnea] docusate sodium (Colace) 100 mg PO BID dronedarone (Multaq) 400 mg PO BID 90 days ferrous fumarate 325 mg PO DAILY lisinopril 10 mg PO DAILY multivitamin 1 tab PO DAILY omeprazole 20 mg PO DAILY rosuvastatin 20 mg PO DAILY sertraline 150 mg (1.5 x 100 mg) PO QAM 90 days walker Folding Front wheeled walker HPI Comments Details: Tj comes for follow-up. He is limited in activity due to his left knee arthritis. Plan to undergo knee replacement surgery in near future. Denies any cardiac symptoms. No prolonged palpitation irregular heartbeat. No lightheadedness, syncope. No exertional shortness of breath, orthopnea, PND. Denies any exertional chest pain. No bleeding issues or neurologic events. Takes all his medications regularly. Uses CPAP regularly. [facility] Medical History (Updated 08/21/23 @ 08:50 by Cristopher Schuster MD) Routine medical exam Major depression, recurrent, chronic Major depression, recurrent, chronic Skin cancer CAD (coronary artery disease) Hypertension Hyperlipemia PAF (paroxysmal atrial fibrillation) History of cardioversion Hx of skin cancer, basal cell PTSD (post-traumatic stress disorder) BPH (benign prostatic hyperplasia) AAA (abdominal aortic aneurysm) Anxiety and depression Anemia Diverticulosis GERD (gastroesophageal reflux disease) Sleep apnea Surgical History Status post lumbar microdiscectomy Hx of blepharoplasty History of prostate surgery Hx of arthroscopy of left knee H/O vein stripping (~06/08/21) Hx of blepharoplasty History of prostate surgery Hx of arthroscopy of left knee H/O vein stripping (~06/08/21) Hx of cardiac catheterization H/O umbilical hernia repair History of incision and drainage Hx of tonsillectomy History of esophagogastroduodenoscopy (EGD) History of cardiac radiofrequency ablation Hx of colonoscopy Hx of right knee surgery History of total left hip arthroplasty Family History Father Esophageal cancer Mother Esophageal cancer Social History Household Members: Family Housing: House Are you a primary youth care professional to a significant other at home: No Do you presently have visiting nurse or other home services: No Alcohol intake: former Patient Tobacco Use Status: Current everyday Tobacco user Smoking Start Date: 09/11/59 Tobacco use type: Cigarette Cigarettes Per Day: 1 Years Smoked: 25 e-Cigarette/Vaping Use: Never Used Second Hand Smoke Exposure: No Substance Use Type: Marijuana Advance Directives Date on File: 04/27/12 service: No Current occupational status: retired Cognitive needs: No Hearing needs: No Vision needs: No Review of Systems Const Denies chills, Denies fatigue, Denies fever(s), Denies frequent falls, Denies weakness, Denies weight gain and Denies weight loss ENT Denies dizziness Card Denies chest pain, Denies leg edema, Denies lightheadedness, Denies palpitations, Denies dyspnea and Denies dyspnea on exertion Resp Denies cough, Denies dyspnea and Denies dyspnea on exertion GI Denies hematochezia Musc Denies abnormal gait, Denies muscle weakness, Denies numbness, Denies radiating pain into limb and Denies tingling Neuro Denies abnormal gait, Denies dizziness, Denies frequent falls, Denies numbness, Denies tingling and Denies weakness Endo Denies fatigue and Denies palpitations Physical Exam Vital Signs: Last Vital Signs Pulse 70 08/21/23 08:27 BP 120/64 08/21/23 08:27 BMI result Body Mass Index 36.8 Repeat blood pressure 124/76 Const General: cooperative, comfortable, no acute distress, alert, awake and Physically active Nutritional Appearance: obese Orientation/consciousness: patient oriented x3 Limitations: no limitations Neck Neck: Yes trachea midline, Yes supple and Yes no JVD Resp Effort & Inspection: normal respiratory effort Auscultation: clear to auscultation bilaterally Cardio Jugular venous distension: no JVD Palpation: normal PMI Rate: regular rate Rhythm: regular rhythm Heart sounds: S1 normal heart sound present, S2 normal heart sound present, no click, no gallops, Murmur heart sound present systolic early, decrescendo and crescendo and no rubs GI Auscultation: normal bowel sounds Skin General skin exam: no rashes or lesions noted Neuro General: patient oriented x3 and no focal motor deficits Extrem General: Yes no clubbing, cyanosis or edema and Yes other ( bilateral varicose veins left greater than right) Psych Appearance: grossly normal Office Procedures EKG Details: EKG shows normal sinus rhythm normal EKG at 70 beats per minute [id number], Complete Assessment & Plan Assessment & Plan (1) Preoperative cardiovascular examination: Code(s): Z01.810 - Encounter for preprocedural cardiovascular examination Plan: Preoperative cardiovascular risk stratification for upcoming left knee surgery. Patient has no new symptoms. Myocardial perfusion imaging last March was within normal limits. Patient has remained stable. He is currently optimized to undergo surgery with low to intermediate risk for perioperative cardiovascular morbidity mortality. Continue all medications except for Eliquis which can be held 2-3 days prior to the surgery and resume as soon as possible after surgery with associated risk of with holding oral anticoagulation therapy. (2) CAD (coronary artery disease): Comment: sees Dr Schuster last visit 09/09/2019 Code(s): I25.10 - Atherosclerotic heart disease of [place] coronary artery without angina pectoris Category: Medical Plan: CAD which has remained stable without any symptoms of angina. Myocardial perfusion imaging is within normal limits. Continue aggressive risk factor modification. LDL is currently well optimized on rosuvastatin. Continue lisinopril therapy for blood pressure control. Continue maintain activity level as tolerated. (3) PAF (paroxysmal atrial fibrillation): Comment: eliquis, s/p ablation Code(s): I48.0 - Paroxysmal atrial fibrillation Category: Medical Plan: Paroxysmal atrial fibrillation which has remained suppressed and has done well on amiodarone therapy after ablation. He is doing extremely well with the same. Continue antiarrhythmic drug therapy. Continue to participate in weight loss program which is aggressively trying to. Continue aggressive blood pressure control. Continue CPAP therapy. Continue full oral anticoagulation, currently on Eliquis 5 mg b.i.d.. Semi annual renal function test should be pursued. (4) Thoracic aortic aneurysm: Code(s): I71.20 - Thoracic aortic aneurysm, without rupture, unspecified Category: Medical Plan: Mild thoracic aortic aneurysm which has remained stable. Will follow with echocardiogram on annual basis. Continue aggressive vascular risk factor modifications above. (5) Aortic stenosis: Code(s): I35.0 - Nonrheumatic aortic (valve) stenosis Category: Medical Plan: Aortic stenosis which is mild by clinical exam. Continue aggressive risk factor modification above. Continue Eliquis therapy. Follow up in the clinic in 3 months for EKG in 6 months with me. Thank you for allowing me to partake in his care Coding Level of Care Code Est Pt Level 4 (00981) Diagnoses Preoperative cardiovascular examination Z01.810 CAD (coronary artery disease) I25.10 PAF (paroxysmal atrial fibrillation) I48.0 Thoracic aortic aneurysm I71.20 Aortic stenosis I35.0 CPT Codes EKG - CPT: [id number], Complete ([id number])
== END 2023-08-21 09:01 | disposition home or self-care (01) ==
PROVIDERS: PCP Nurse Practitioner Family; Visit Provider Internal Medicine Cardiovascular Disease
DX: I48.0 Paroxysmal atrial fibrillation (principal); I71.20 Thoracic aortic aneurysm, without rupture, unspecified; I25.10 Atherosclerotic heart disease of native coronary artery without angina pectoris; Z01.810 Encounter for preprocedural cardiovascular examination; I35.0 Nonrheumatic aortic (valve) stenosis
CPT/HCPCS: 93010; 99214

== ENCOUNTER → 2023-08-21 08:08 | Outpatient (BNVA) | payer MEDICARE, SELFPAY | PROVIDERS: PCP Nurse Practitioner Family; Visit Provider Internal Medicine Cardiovascular Disease | DX: Z01.810 Encounter for preprocedural cardiovascular examination (principal); I25.10 Atherosclerotic heart disease of native coronary artery without angina pectoris; I48.0 Paroxysmal atrial fibrillation; I71.20 Thoracic aortic aneurysm, without rupture, unspecified; I35.0 Nonrheumatic aortic (valve) stenosis | CPT/HCPCS: 93005; 99212 ==

== ENCOUNTER 2023-08-28 09:13 | Outpatient (REF) | payer MEDICARE, SELFPAY ==
--- NOTE | ~2023-08-28 | XR_ITS ---
EXAMINATION: XR KNEE, LEFT CLINICAL INFORMATION: Left knee pain COMPARISON: None available. TECHNIQUE: Lateral and sunrise views of the left knee. FINDINGS: Moderate-severe patellofemoral compartment osteoarthritis. No significant joint effusion. XR/XR knee LT 2V IMPRESSION: Moderate-severe patellofemoral compartment osteoarthritis.
== END 2023-08-28 09:14 | disposition home or self-care (01) ==
LOC: HO.HOSX 09:13
PROVIDERS: Visit Provider Physician Assistant
DX: Z01.818 Encounter for other preprocedural examination (principal); M17.12 Unilateral primary osteoarthritis, left knee
CPT/HCPCS: 73560; 99212

== ENCOUNTER 2023-08-28 09:28 | Outpatient (AMB) | payer MEDICARE, SELFPAY ==
--- NOTE | 2023-08-28 09:38 | MHC.OFFVIS ---
Vital Signs 08/28/23 09:49 Height 6 ft 2 in Weight 287 lb BMI 36.8 Intake Visit Reasons: Pre-Op: L TKA w/NE 09/02/23 Intake Note: Elizabeth 67 year old male who presents today for a preoperative visit s/p left TKA on 09/02/23 NE. Pain management agreement reviewed and signed. Allergies morphine [MORPHINE] Allergy (Severe, Verified 08/28/23 09:48) severe aggitation Medication List - Last Reconciled 08/28/23 by Geoffrey Patten PA-C apixaban (Eliquis) 5 mg PO BID 90 days cane As directed [CPAP As directed, for sleep apnea] dronedarone (Multaq) 400 mg PO BID 90 days ferrous fumarate 325 mg PO DAILY lisinopril 10 mg PO DAILY multivitamin 1 tab PO DAILY omeprazole 20 mg PO DAILY rosuvastatin 20 mg PO DAILY sertraline 150 mg (1.5 x 100 mg) PO QAM 90 days walker Folding Front wheeled walker life time- 99 days HPI Comments Details: Mr Minaya presents to the office today for preop visit. He is scheduled for left total knee arthroplasty with Dr. Navarrete. He continues to have ongoing pain and difficulty with ambulation in the left knee, which is affecting his quality of life; therefore, he has elected to move forward with surgery. Patient is on Eliquis-was told to hold 72 hours pre op [facility] Medical History (Updated 08/25/23 @ 10:11 by Shannon Otoole RN) Arthritis On anticoagulant therapy Murmur Routine medical exam Major depression, recurrent, chronic Skin cancer CAD (coronary artery disease) Hypertension Hyperlipemia PAF (paroxysmal atrial fibrillation) History of cardioversion Hx of skin cancer, basal cell PTSD (post-traumatic stress disorder) BPH (benign prostatic hyperplasia) AAA (abdominal aortic aneurysm) Anxiety and depression Anemia Diverticulosis GERD (gastroesophageal reflux disease) Sleep apnea Surgical History History of total right knee replacement Status post lumbar microdiscectomy Hx of blepharoplasty History of prostate surgery H/O vein stripping (~06/08/21) Hx of arthroscopy of left knee Hx of cardiac catheterization H/O umbilical hernia repair History of incision and drainage Hx of tonsillectomy History of esophagogastroduodenoscopy (EGD) History of cardiac radiofrequency ablation Hx of colonoscopy Hx of right knee surgery History of total left hip arthroplasty Family History Father Esophageal cancer Mother Esophageal cancer Social History Household Members: Family Housing: House Are you a primary transitional care nurse to a significant other at home: No Do you presently have visiting nurse or other home services: No Alcohol intake: former Patient Tobacco Use Status: Current everyday Tobacco user Smoking Start Date: 09/11/59 Tobacco use type: Cigarette Cigarettes Per Day: 2 Years Smoked: 25 e-Cigarette/Vaping Use: Never Used Second Hand Smoke Exposure: No Substance Use Type: Marijuana Advance Directives Date on File: 04/27/12 service: No Current occupational status: retired Cognitive needs: No Hearing needs: No Vision needs: No Review of Systems Const All systems reviewed & are unremarkable except as noted in HPI and below Physical Exam Vital Signs: BMI result Body Mass Index 36.8 Const General: cooperative and no acute distress Orientation/consciousness: patient oriented x3 Neck Neck: Yes normal visual inspection and Yes no lymphadenopathy Resp Effort & Inspection: normal respiratory effort and able to speak in complete sentences Cardio Peripheral pulses: Peripheral pulses 2+ throughout GI Inspection: Yes normal to inspection Palpation (GI): Soft to palpation Skin General skin exam: no rashes or lesions noted Neuro General: patient oriented x3 Extrem Other: Left knee: Skin is intact. No open wound abrasion. ROM is 0-95 degrees. Calf supple, nontender. NVI. Assessment & Plan Assessment & Plan (1) Osteoarthritis of right knee: Code(s): M17.11 - Unilateral primary osteoarthritis, right knee Category: Medical Plan I discussed in detail the procedure and what to expect pre and post operatively. We discussed the risks, benefits and alternatives to the surgery as well as the rehabilitation course. The risks; which include, but are not limited to infection, bleeding, nerve injury, ongoing pain, swelling, and stiffness, perioperative risk of injury to bones and soft tissues, and blood clots. I?ve answered all questions and with their understanding they have consented to move forward with Left total knee arthroplasty with Dr. Navarrete Previous discharge medications-patient states he tolerated well and the plan is to proceed with the same medication regimen acetaminophen 325 mg Tablet 650 mg PO Q6H PRN (Reason: Pain, Mild (Pain Scale 1-3)) 30 Days Qty: 240 0RF celecoxib 200 mg capsule 200 mg PO BID Qty: 60 0RF oxycodone 10 mg tablet 10 mg PO Q6H PRN (Reason: Pain, Moderate (Pain Scale 4-6) 7 Days Qty: 28 0RF Rx Instructions: Partial Fill upon patient request. docusate sodium 100 mg Capsule 100 mg PO DAILY PRN (Reason: Constipation) 14 Days Qty: 28 0RF Orders: Orders XR knee LT 2V Today M25.562 - Pain in left knee PT Evaluation and Treatment Today Z96.652 - Presence of left artificial knee joint Medications: New cane As directed 1 ea 0RF M17.12 - Unilateral primary osteoarthritis, left knee Changed From walker Folding Front wheeled walker 1 ea 0RF M17.11 - Unilateral primary osteoarthritis, right knee To walker Folding Front wheeled walker life time- 99 days 1 ea 0RF M17.11 - Unilateral primary osteoarthritis, right knee Patient Instructions: Scribed for Geoffrey Patten PA-C, by Jorge Fontaine adjunct faculty for medical terminology, on 08/28/2023 at 9:45 AM EST.? I, Geoffrey Patten PA-C, have personally reviewed and agree with the information entered by the scribe. Coding Level of Care Code Est Pt Level 3 (28602) Diagnoses Osteoarthritis of right knee M17.11
[2023-08-28 09:49] VITALS: BMI 36.8
== END 2023-08-28 10:35 | disposition home or self-care (01) ==
PROVIDERS: PCP Nurse Practitioner Family; Visit Provider Physician Assistant
DX: M17.11 Unilateral primary osteoarthritis, right knee (principal)
CPT/HCPCS: 99024

== ENCOUNTER 2023-09-02 07:32 | Inpatient (IN) | payer MEDICARE, SELFPAY ==
[2023-08-25 10:19] VITALS: BP 114/64; PULSE 72; RESP 16; O2SAT 97; BMI 36.7
--- NOTE | 2023-08-25 10:43 | P.CONAN_ITS ---
Documented by User: Jessa Oliveira NP 09/01/23 08:30 HPI - Anesthesia Eval Consult details Narrative: 67yo M for Left Knee Replacement Total, 09/02/23 Cardiac cleared No URI, tx for UTI 08/11/2023 No CP/SOB within limits of knee pain s/p Right L3-4 lumbar microdiskectomy with microscope 12/2022 with GA-ETT 8 s/p Right TKA 04/2022 with GA-LMA 5 (PONV) - GA likely d/t L3-4 disc disease, repaired since CAD: Stable without angina Afib: Eliquis AAA: 4.2cm, obs by cardiology Aortic stenosis: mild GERD: ppi controls VIDYA: CPAP QHS PMFSH Active Problems Active Problems: All Active Problems Aortic stenosis (Acute) Urinary tract infection (Acute) Status post lumbar spine surgery for decompression of spinal cord (Acute) Lumbar canal stenosis (Acute) Nerve root compression (Acute) Cauda equina syndrome (Acute) Urinary incontinence (Acute) Osteoarthritis of left knee (Acute) Lumbar back pain with radiculopathy affecting right lower extremity (Acute) Status post total knee replacement, right (Acute) Pre-op evaluation (Acute) Urinary urgency (Acute) Anxiety with depression (Acute) Osteoarthritis of right knee (Acute) Low back pain (Acute) Tubular adenoma of colon (Acute) Encounter for subsequent annual wellness visit (AWV) in Medicare patient (Acute) Abdominal discomfort (Acute) Varicose veins of left lower extremity with inflammation (Acute) Varicose veins of both lower extremities (Acute) Screening PSA (prostate specific antigen) (Acute) Major depression, recurrent, chronic (Acute) Depression (Acute) Encounter for annual wellness visit (AWV) in Medicare patient (Acute) Lower back pain (Acute) Pre-op evaluation (Acute) Thoracic aortic aneurysm (Acute) Urinary urgency (Acute) Anxiety with depression (Acute) Osteoarthritis of right knee (Acute) Low back pain (Acute) Tubular adenoma of colon (Acute) Encounter for subsequent annual wellness visit (AWV) in Medicare patient (Acute) Abdominal discomfort (Acute) Varicose veins of left lower extremity with inflammation (Acute) Varicose veins of both lower extremities (Acute) Screening PSA (prostate specific antigen) (Acute) Depression (Acute) Encounter for annual wellness visit (AWV) in Medicare patient (Acute) Lower back pain (Acute) Leg mass (Acute) Skin lesion (Acute) Anemia (Acute) Major depression, recurrent, chronic (Acute) Hypertension (Acute) CAD (coronary artery disease) (Acute) PAF (paroxysmal atrial fibrillation) (Acute) Past Medical History Medical History Arthritis On anticoagulant therapy Murmur Routine medical exam Major depression, recurrent, chronic Skin cancer CAD (coronary artery disease) Hypertension Hyperlipemia PAF (paroxysmal atrial fibrillation) History of cardioversion Hx of skin cancer, basal cell PTSD (post-traumatic stress disorder) BPH (benign prostatic hyperplasia) AAA (abdominal aortic aneurysm) Anxiety and depression Anemia Diverticulosis GERD (gastroesophageal reflux disease) Sleep apnea Family History Family History Father Esophageal cancer Mother Esophageal cancer Family history of problems with anesthesia: No Surgical History Surgical History History of total right knee replacement Status post lumbar microdiscectomy Hx of blepharoplasty History of prostate surgery H/O vein stripping (~06/08/21) Hx of arthroscopy of left knee Hx of cardiac catheterization H/O umbilical hernia repair History of incision and drainage Hx of tonsillectomy History of esophagogastroduodenoscopy (EGD) History of cardiac radiofrequency ablation Hx of colonoscopy Hx of right knee surgery History of total left hip arthroplasty History of Problems with Anesthesia: Yes (PONV) Social History Social History Household Members: Family Housing: House Are you a primary physician primary care sports medicine to a significant other at home: No Do you presently have visiting nurse or other home services: No Alcohol intake: former Patient Tobacco Use Status: Current everyday Tobacco user Smoking Start Date: 09/11/59 Tobacco use type: Cigarette Cigarettes Per Day: 1 Years Smoked: 25 e-Cigarette/Vaping Use: Never Used Second Hand Smoke Exposure: No Use of substances other than those prescribed or required for medical reasons: Yes Substance Use Type: Marijuana Substance Use Frequency: Daily Have you been hit, kicked, punched, or otherwise hurt by someone within the past year? If so, by whom?: No Are you DNR?: No Advance Directives: No Advance Directives on File: Yes Advance Directives Date on File: 04/27/12 Recently lost weight without trying: No Eating poorly because of decreased appetite: No Nutrition Risks: No Nutritional Risk Poor oral hygiene: Yes (full upper denture, missing in the bottom) service: No Current occupational status: retired Cognitive needs: No Hearing needs: No Vision needs: No Meds Allergies Allergy/AdvReac Type Severity Reaction Status Date / Time morphine [MORPHINE] Allergy Severe severe Verified 08/28/23 09:48 aggitation Home Medications ?Medication ?Instructions ?Recorded ?Confirmed ?Last Taken ?Type lisinopril 10 mg tablet 10 mg PO DAILY 11/24/19 08/28/23 09/01/23 History omeprazole 20 mg tablet,delayed 20 mg PO DAILY 11/24/19 08/28/23 09/02/23 History release multivitamin 1 tab PO DAILY 09/27/20 08/28/23 09/01/23 History Exam Height,Weight and Vital Signs: Height 6 ft 2 in Weight 129.727 kg Last Vital Signs Pulse 72 08/25/23 10:19 Resp 16 08/25/23 10:19 BP 114/64 08/25/23 10:19 Pulse Ox 97 08/25/23 10:19 O2 Del Method Room Air 08/25/23 10:19 Pertinent Lab Results Pertinent Lab Results: Laboratory Tests 08/09/23 07:46 WBC 6.2 Hgb 12.5 L Hct 37.8 L Plt Count 246 Sodium 140 Potassium 4.2 Chloride 105 Carbon Dioxide 26 BUN 9 Creatinine 0.73 Lab Results 08/25/23 08/25/23 Range/Units 10:35 11:10 Nasal Screen MRSA (PCR) NEGATIVE (Negative) Nasal S. aureus Screen NEGATIVE (Negative) Nasal MRSA/S.aureus Interp SEE NOTE Blood Type O Positive Antibody Screen NEGATIVE Narrative Narrative: EKG 08/2023 normal sinus rhythm normal EKG at 70 beats per minute ECHO 2022 Conclusions: - The left ventricular systolic function is normal. The calculated ejection fraction is 63% by biplane method. - There is mild aortic valve stenosis. - There is mild dilatation of the ascending aorta measuring 4.20 cm. NM kush perf SPECT rest & str 2022 Impression: 1. Myocardial perfusion imaging study shows no clear evidence of any ischemia or infarction. Probably normal perfusion. 2. Gated LVEF is 62% during stress and 54% during rest. 3. Transient ischemic dilatation not present. EKG component of the test reported separately. Airway Mallampati Class: II TM Dist: >3cm Neck ROM: Full Denture: Upper Loose/Missing/Broken Teeth: Yes (Lower molar missing) Heart: RRR Lungs: CTAB Assessment and Plan Assessment Anesthesia Assessment: Anesthesia Plan Discussed, Smoking Cess. Discussed and PAT Visit Final Anesthetic Review Family History of Problems with Anesthesia: No History of Problems with Anesthesia: Yes (PONV) Documented by User: Celsa Muñoz MD 09/02/23 08:07 [facility] Past Medical History Medical History Arthritis On anticoagulant therapy Murmur Routine medical exam Major depression, recurrent, chronic Skin cancer CAD (coronary artery disease) Hypertension Hyperlipemia PAF (paroxysmal atrial fibrillation) History of cardioversion Hx of skin cancer, basal cell PTSD (post-traumatic stress disorder) BPH (benign prostatic hyperplasia) AAA (abdominal aortic aneurysm) Anxiety and depression Anemia Diverticulosis GERD (gastroesophageal reflux disease) Sleep apnea Family History Family History Father Esophageal cancer Mother Esophageal cancer Surgical History Surgical History History of total right knee replacement Status post lumbar microdiscectomy Hx of blepharoplasty History of prostate surgery H/O vein stripping (~06/08/21) Hx of arthroscopy of left knee Hx of cardiac catheterization H/O umbilical hernia repair History of incision and drainage Hx of tonsillectomy History of esophagogastroduodenoscopy (EGD) History of cardiac radiofrequency ablation Hx of colonoscopy Hx of right knee surgery History of total left hip arthroplasty Social History Social History Household Members: Family Housing: House Are you a primary physician primary care sports medicine to a significant other at home: No Do you presently have visiting nurse or other home services: No Alcohol intake: former Patient Tobacco Use Status: Current everyday Tobacco user Smoking Start Date: 09/11/59 Tobacco use type: Cigarette Cigarettes Per Day: 1 Years Smoked: 25 e-Cigarette/Vaping Use: Never Used Second Hand Smoke Exposure: No Use of substances other than those prescribed or required for medical reasons: Yes Substance Use Type: Marijuana Substance Use Frequency: Daily Have you been hit, kicked, punched, or otherwise hurt by someone within the past year? If so, by whom?: No Are you DNR?: No Advance Directives: No Advance Directives on File: Yes Advance Directives Date on File: 04/27/12 Recently lost weight without trying: No Eating poorly because of decreased appetite: No Nutrition Risks: No Nutritional Risk Poor oral hygiene: Yes (full upper denture, missing in the bottom) service: No Current occupational status: retired Cognitive needs: No Hearing needs: No Vision needs: No Meds Allergies Allergy/AdvReac Type Severity Reaction Status Date / Time morphine [MORPHINE] Allergy Severe severe Verified 08/28/23 09:48 aggitation Home Medications ?Medication ?Instructions ?Recorded ?Confirmed ?Last Taken ?Type lisinopril 10 mg tablet 10 mg PO DAILY 11/24/19 08/28/23 09/01/23 History omeprazole 20 mg tablet,delayed 20 mg PO DAILY 11/24/19 08/28/23 09/02/23 History release multivitamin 1 tab PO DAILY 09/27/20 08/28/23 09/01/23 History Exam Airway Mallampati Class: II TM Dist: >3cm Neck ROM: Limited Assessment and Plan Assessment Anesthesia Assessment: Anesthesia Plan Discussed Final Anesthetic Review NPO: Yes Final Preanesthetic Review: No Changes in Pt Med Stat, Meds/Allgs Chart Reviewed, Consent Obtained/Reviewed and Anes Risks/Benef Reviewed Patient Risk: Intermediate Procedure Risk: Intermediate Anesthetic Plan Anesthetic Plan: MAC: and Spinal Disposition: Standard PACU
[2023-08-25 13:28] LABS: MRSA Nasal PCR NEGATIVE (Negative); SA Nasal PCR NEGATIVE (Negative)
[2023-09-02] VITALS (17 sets, daily range): BP systolic 119–144; BP diastolic 51–75; PULSE 63–83; RESP 12–18; TEMP 36.4–37.1; O2SAT 95–99; BMI 36.5
--- NOTE | ~2023-09-02 | XR_ITS ---
EXAMINATION: XR KNEE, LEFT CLINICAL INFORMATION: Total knee arthroplasty. COMPARISON: Left knee radiographs dated 08/28/2023. TECHNIQUE: AP and lateral views of the left knee. FINDINGS: Prosthetic components of the total knee arthroplasty are appropriately aligned. No periprosthetic fracture. Gas from recent surgery is present in the joint and surrounding soft tissues. A joint effusion is present. XR/XR knee LT 2V IMPRESSION: Appropriate alignment of the left total knee arthroplasty.
--- OUTSIDE RECORDS SUMMARY | 2023-09-02 07:36 | XMS_ITS | Patient Health Record ---
[facility] Address [address] [place] [address] Care Team Providers Care Director Of Financial Planning Name Role Phone Vijay Biggs Primary Care Provider Unav ailable Black, Karime Unavailable [phone] ALLERGIES Allergen (clinical drug ingredient) Drug/Non Drug Allergy documented on EMR Reaction Allergy Type Onset Date Status morphine Morphine freak out Drug Allergy Active REASON FOR REFERRAL No Information MEDICATIONS Medication SIG (Take, Route, Frequency, Duration) Notes Start Date End Date Status Lisinopril 10 MG 1 tablet Orally Once a day for 30 day(s) Active Rosuvastatin Calcium 20 MG Orally Once a day Active eliquis 5 mg Active Omeprazole 10 MG 2 capsules Orally On ce a day for 30 day(s) Active Metoprolol-HCTZ ER U nknown Furosemide Unknown Ciclopirox Olamine 0.77% external Apply to effected areas twice a day for 30 days 11/18/2013 Unknown predniSONE 12mg taper for 9 days Active Ciclopirox Olamine 0.77 % 1 application to affected area Externally to the bottom of the feet Twice a day for 30 days 02/19/2018 Active Multaq 400 MG 1 tablet with meals Orally Twice a day Active SOCIAL HISTORY Tobacco Use: Social History Observation Description Date Details (start date - stop date) Former Smoker NA - NA Sex Assigned At : Social History Observation Description Sex Assigned At Unknown Tobacco Use/Smoking Question Answer Notes Are you a: former smoker Alcohol Screen Question Answer Notes Did you have a drink containing alcohol in the p ast year? No Points 0 Interpretation Negative Tobacco use other than smoking: Question Answer Notes Are you an other tobacco user? No PROBLEMS No Known Problems PLAN OF TREATMENT Pending Test Test Name Order Date X ray : Foot, left 3V 06/20/2011 [id number] NAIL, 1-5 11/19/2012 [id number] NAIL, 1-5 11/18/[id number] TENDON SHEATH/LIGAMENT 1 50,[id number] TENDON SHEATH/LIGAMENT 0 06/20/201112552,[id number] TENDON SHEATH/LIGAMENT 1 Insurance Providers Payer Name Payer Address Payer Phone Subscriber Number Group Number Insured Name Patient Relationship to Insured Coverage Start Date Coverage End Date [employer] [address] [place] [address] [phone] [id number] Marv Minaya Self - patient is the insured MEDICAL (GENERAL) HISTORY Medical History History ICD Code neuropathy reflux mumps measles high blood pressure chicken pox back, hip, knee pain Arthritis Hypertension Heart Disease measles mumps chicken Pox bone implants and screws Surgical History Surgery Date(Month/Year) knee surgery neck surgery Hip replacement 09/2015 ablation 2013 Hospitalization History Reason Date(Month/Year) [facility], 3 days, CHF 04/2012
--- NOTE | 2023-09-02 07:54 | MHC.SHP ---
Pre-Procedural Eval Section A - 24 Hr Update-Section A only Date of Service: 09/02/23 The patient is an INPATIENT: No Changes since office visit: No Cold of Flu in the past 2 weeks, No New Medical Problems, No Changes in Medication and No Patient answered all questions The patient has been examined within 24 hours of the surgical procedure. The History & Physical has been completed within 30 days and I have reviewed it.: Yes Section B - Complete if H&P > 30 days Chief Complaint: LT TKA Allergies: Allergies Allergy/AdvReac Type Severity Reaction Status Date / Time morphine [MORPHINE] Allergy Severe severe Verified 08/28/23 09:48 aggitation Plan I have reviewed the history and physical and performed a pertinent physical examination on my patient. No changes have occurred unless specified. Time Spent With Patient Time: Total time managing care of this patient today ____ minutes.
[2023-09-02] MEDS: Scopolamine 1.5 MG PATCH.TD.3 TRANSDERMA (08:12)
[2023-09-02] MEDS: Lactated Ringers 1,000 ML 100 ML IVCONT ×3 (08:26→23:48)
--- NOTE | 2023-09-02 11:01 | P.BOP_ITS ---
Brief Operative Note Date of Service: 09/02/23 Pre-op diagnosis: Left knee OA Post-op diagnosis: same Procedure: Left TKA Implants: [employer] Triathlon press fit cruciate retaining Surgeon: Nathan Navarrete MD Anesthesia: regional and spinal Was an Trim Installer used for this Procedure?: No Trim Installer: Geoffrey Patten Estimated blood loss (mL): 25 Tourniquet time (min): 61 Pathology: other Condition: stable Disposition: PACU Assessment and Plan (No Qualifiers) Assessment and Plan (1) Status post left knee replacement: Status: Acute Plan: Gisela
--- NOTE | 2023-09-02 11:03 | P.OP_ITS ---
Operative Note Operative Note Date of Service: 09/02/23 Narrative: Date of Service: 09/02/23 Pre-op diagnosis: Left knee OA Post-op diagnosis: same Procedure: Left TKA Implants: [place] Triathlon press fit cruciate retaining Surgeon: Nathan Navarrete MD Anesthesia: regional and spinal Was an Soil Conservation Teacher used for this Procedure?: No Soil Conservation Teacher: Geoffrey Patten Estimated blood loss (mL): 25 Tourniquet time (min): 61 Pathology: other Condition: stable Disposition: PACU Procedure in detail: The patient was brought to the operating room and prepped and draped in standard sterile fashion. A time-out was called to identify proper site proper procedure proper surgeon and IV antibiotics were administered. 1 g of IV tranexamic acid was administered. I began by making a midline incision to the retinaculum and performed a medial parapatellar arthrotomy. The patella was translated laterally and the knee was flexed up. The medial compartment was eburnated . I performed a small medial peel and resected the infrapatellar fat pad. Corona's line was then used to drill my intramedullary femoral guide and my distal femur cut of 12 mm was made in 5 degrees of valgus while protecting the soft tissues. I then measured a # 7 femur and placed my cutting guide and made my anterior posterior and chamfer cuts protecting the soft tissues at all times. Once I was satisfied with my cuts I turned my attention to the tibia. I removed the meniscus medially and laterally and , using an external cutting guide, in line with the tibial crest and the third ray, I made my distal tibial cut in 3 deg slope of while protecting the PCL the posterior soft tissues at all times. An extension block was used to confirm appropriate amount of bony resection. I then sized a #6 tibia and once I was satisfied that there was complete tibial coverage I placed my trial and with the trial femur in place took the knee through range of motion. I was satisfied with the extension and flexion as well as the stability and balance at 0, 30 and 90 degrees. I then turned my attention to the patella where I removed 1 cm from the undersurface of the patella and then trialed a 35a patellar button. Again the knee was taken through range of motion I was satisfied with the tracking. I then returned to the femur and drilled my femoral lug holes and prepared the tibia. A femoral bone plug was placed and the knee was irrigated copiously. I then press fit the patella, tibia and femur in standard fashion. I trialed different inserts until I selected a #9 insert. The final insert was placed and I copiously irrigated with local TXA was performed. A Werewolf cautery wand was used to maintain hemostasis over the capsule and meniscal beds, the gutters and peripatellar soft tissues. The knee was then closed with a running Quill suture, a 3 0 Vicryl and rachid on the skin. Patient was then placed in sterile dressing and brought to recovery room in stable condition there were no known complications.
[2023-09-02] MEDS: HYDROmorphone HCl 0.5 MG/0.5 ML SYRINGE 0.25 MG IVPUSH ×3 (12:09→20:38)
[2023-09-02] MEDS: fentaNYL citrate/PF 100 MCG/2 ML VIAL 25 MCG IVPUSH ×4 (12:23→12:39)
--- NOTE | 2023-09-02 13:18 | PHA.MEDREC ---
Pharmacy Consult ? Medication Reconciliation Pharmacy has completed the medication reconciliation. Looked over med rec done by nursing and verified with patient at bedside, confirmed patient is taking apixaban, dronederone, and lisinopril despite no claim history.
[2023-09-02] MEDS: oxyCODONE HCl Immed Release 5 MG TABLET 10 MG PO ×3 (13:22→22:41)
[2023-09-02] MEDS: ceFAZolin Sodium/Dextrose,Iso 2 GM/50 ML PIGGYBACK IV (15:06)
--- NOTE | 2023-09-02 15:16 | HO.PM.IMCN ---
History of Present Illness Data of Consult Service Date: 09/02/23 Requesting physician: Geoffrey Patten Primary Care Provider: Vijay Jaramillo [facility] HPI Reason for consult: medical management 67-year-old male with history AAA, anxiety/depression, coronary artery disease, GERD, hyperlipidemia, hypertension, VIDYA compliant with CPAP, and paroxysmal atrial fibrillation anticoagulated with Eliquis s/p cardiac ablation admitted to Orthopedic surgery for management of osteoarthritis of the left knee s/p left TKA with consult placed to hospitalist service for medical management. He is currently reporting 7/10 pain in the left knee but otherwise has no complaints. No headaches, lightheadedness, palpitation, shortness of breath, nausea, vomiting, chest pain. He is mildly hypertensive at 141/71, otherwise vital signs are normal. Review of Systems Review of Systems: Yes all other systems are reviewed and are negative [facility] Medical History Arthritis On anticoagulant therapy Murmur Routine medical exam Major depression, recurrent, chronic Skin cancer CAD (coronary artery disease) Hypertension Hyperlipemia PAF (paroxysmal atrial fibrillation) History of cardioversion Hx of skin cancer, basal cell PTSD (post-traumatic stress disorder) BPH (benign prostatic hyperplasia) AAA (abdominal aortic aneurysm) Anxiety and depression Anemia Diverticulosis GERD (gastroesophageal reflux disease) Sleep apnea Family History Father Esophageal cancer Mother Esophageal cancer Surgical History History of total right knee replacement Status post lumbar microdiscectomy Hx of blepharoplasty History of prostate surgery H/O vein stripping (~06/08/21) Hx of arthroscopy of left knee Hx of cardiac catheterization H/O umbilical hernia repair History of incision and drainage Hx of tonsillectomy History of esophagogastroduodenoscopy (EGD) History of cardiac radiofrequency ablation Hx of colonoscopy Hx of right knee surgery History of total left hip arthroplasty Social History Household Members: Family Housing: House Are you a primary reservoir caretaker to a significant other at home: No Do you presently have visiting nurse or other home services: No Alcohol intake: former Comment: All counts correct Patient Tobacco Use Status: Current everyday Tobacco user Smoking Start Date: 09/11/59 Tobacco use type: Cigarette Cigarettes Per Day: 2 Years Smoked: 25 e-Cigarette/Vaping Use: Never Used Second Hand Smoke Exposure: No Substance Use Type: Marijuana Advance Directives Date on File: 04/27/12 service: No Current occupational status: retired Cognitive needs: No Hearing needs: No Vision needs: No Meds Allergies Allergy/AdvReac Type Severity Reaction Status Date / Time morphine [MORPHINE] Allergy Severe severe Verified 08/28/23 09:48 aggitation Active Medications: Current Medications Acetaminophen (Acetaminophen 325 Mg Tablet) 650 mg PO Q6H PRN PRN Reason: Pain, Mild (Pain Scale 1-3), fever or headache Celecoxib (Celecoxib 200 Mg Capsule) 200 mg PO BID ALEXY Dronedarone (Dronedarone Hcl 400 Mg Tablet) 400 mg PO BID [facility] Enoxaparin Sodium (Enoxaparin Sodium 40 Mg/0.4 Ml Syringe) 40 mg SUBCUT Q24H [facility] Stop: 09/04/23 10:01 Hydromorphone HCl (Hydromorphone Hcl 0.5 Mg/0.5 Ml Syringe) 0.25 mg IVPUSH Q4H PRN; Protocol PRN Reason: Pain, Severe (Pain Scale 7-10) Last Admin: 09/02/23 12:09 Dose: 0.25 mg Lactated Ringer's (Lr) 1,000 mls @ 100 mls/hr IVCONT .Q10H ALEXY Stop: 09/03/23 11:27 Last Admin: 09/02/23 13:25 Dose: 100 mls/hr Cefazolin Sodium/Dextrose (Ancef) 2 gm in 50 mls @ 100 mls/hr IV POSTOP ONE Stop: 09/02/23 15:29 Last Admin: 09/02/23 15:06 Dose: 100 mls/hr Omeprazole (Omeprazole 20 Mg Capsule.Dr) 20 mg PO DAILY [facility] Ondansetron HCl (Ondansetron Hcl 4 Mg/2 Ml Vial) 4 mg IVPUSH Q8H PRN PRN Reason: Nausea and Vomiting Oxycodone HCl (Oxycodone Hcl Immed Release 5 Mg Tablet) 10 mg PO Q4H PRN PRN Reason: Pain, Moderate(Pain Scale 4-6) Last Admin: 09/02/23 13:22 Dose: 10 mg Oxycodone HCl (Oxycodone Hcl Er 10 Mg Tab.Er.12h) 10 mg PO BID ALEXY Senna (Sennosides 8.6 Mg Tablet) 17.2 mg PO BEDTIME ALEXY Sertraline HCl (Sertraline Hcl 50 Mg Tablet) 150 mg PO DAILY [facility] Sodium Chloride (0.9 % Sodium Chloride Flush 3 Ml Syringe) 3 ml IVFLUSH QSHIFT ALEXY Last Admin: 09/02/23 13:51 Dose: Not Given Home Medications ?Medication ?Instructions ?Recorded ?Confirmed ?Last Taken ?Type lisinopril 10 mg tablet 10 mg PO DAILY 11/24/19 08/28/23 09/01/23 History omeprazole 20 mg tablet,delayed 20 mg PO DAILY 11/24/19 08/28/23 09/02/23 History release multivitamin 1 tab PO DAILY 09/27/20 08/28/23 09/01/23 History Physical Exam Vital Signs and Narrative: Vital Signs: Last Vital Signs Temp 97.6 F 09/02/23 13:02 Pulse 70 09/02/23 13:02 Resp 12 09/02/23 13:02 BP 144/70 H 09/02/23 13:02 Pulse Ox 97 09/02/23 13:02 O2 Del Method Room Air 09/02/23 13:02 O2 Flow Rate 6 09/02/23 11:20 BMI result Body Mass Index 36.5 Constitutional - Awake and Alert, No apparent distress Eyes - PERRLA, EOMI Cardiovascular - S1S2, RRR, No edema Respiratory - Normal lung expansion, Normal respiratory effort, No respiratory distress, CTA bilaterally Gastrointestinal - NT / ND; +BS; No rebound or guarding Extremities - no calf tenderness bilaterally, no swelling Skin - Warm/Dry Neurological - Alert & oriented x3 Psychological - Appropriate affect Results Imaging Radiologist's Impressions: Impressions Knee X-Ray 09/02/23 11:52 IMPRESSION: Appropriate alignment of the left total knee arthroplasty. Assessment and Plan (1) Status post left knee replacement: Status: Acute Plan 67-year-old male with history AAA, anxiety/depression, coronary artery disease, GERD, hyperlipidemia, hypertension, VIDYA compliant with CPAP, and paroxysmal atrial fibrillation anticoagulated with Eliquis s/p cardiac ablation admitted to Orthopedic surgery for management of osteoarthritis of the left knee s/p left TKA with consult placed to hospitalist service for medical management. #OA L Knee s/p TKA -plan including pain management per ortho surgery # CAD/HLD -Follows outpt with Dr. Person -No anginal chest pain - continue home meds # paroxysmal atrial fibrillation s/p cardiac ablation -resume Eliquis per Orthopedic surgery for anticoagulation. Continue Multaq # hypertension-reasonably controlled -resume lisinopril a.m. # VIDYA -declined CPAP at bedtime # GERD -continue PPI #mood disorder -continue home meds # cigarette smoker -reports smoking 1-2 cigarettes on a daily basis, smoking cessation/education provided -declines replacement therapy Thank you for allowing me to participate in this consult. Signing off at this time. Please do not hesitate to call for further questions or for any acute medical issues
[2023-09-02] MEDS: Celecoxib 200 MG CAPSULE PO (20:39)
[2023-09-02] MEDS: Sennosides 8.6 MG TABLET 17.2 MG PO (20:39)
[2023-09-02] MEDS: oxyCODONE HCl ER 10 MG TAB.ER.12H PO (20:39)
[2023-09-02] MEDS: Dronedarone HCl 400 MG TABLET PO (20:39)
--- NOTE | 2023-09-02 21:25 | PM.DS ---
DS: Providers Provider Date of Service: 09/03/23 Date of admission: 09/02/23 07:32 Primary care physician: LAUREANO Roca Consults: 09/02/23 13:04 Consult to Hospitalist Routine Comment: Consulting Provider: Hospitalist Reason For Exam: aortic stenosis DS: Diagnosis Discharge Diagnosis (1) Status post left knee replacement: Status: Acute DS: Summary Hospital Course Hospital Course: The patient underwent a successful left total knee arthroplasty, they were transferred to PACU and then to the floor to recover. During their stay, their vitals were stable, afebrile at 97.5. Labs were unremarkable, H/H 12.1/35.2. POD 1 they were started on Lovevnox injections, 48 hours post op may resume Eliquis PO 5mg BID at his regular dose for DVT ppx, they also received Physical Therapy services twice a day. Prior to discharge, their dressing was clean dry and intact, and the plan was to be discharged home with VNA services. Last dose of Lovenox 10:00am 09/04/23 and then may resume regular dose of Eliquis Time Attestation Discharge Coordination Time (in mins): 30 Quality: Safe Use of Opioids Does Pt have an Active Cancer Diagnosis on the Problem List?: No Quality: Stroke Does the patient have a stroke diagnosis?: No Physical Exam Vital Signs: Vital Signs: Last Vital Signs Temp 98.2 F 09/02/23 19:54 Pulse 83 09/02/23 19:54 Resp 18 09/02/23 19:54 BP 144/71 H 09/02/23 19:54 Pulse Ox 96 09/02/23 19:54 O2 Del Method Room Air 09/02/23 19:54 O2 Flow Rate 6 09/02/23 11:20 BMI result Body Mass Index 36.5 Const: General: cooperative, healthy appearing and no acute distress Resp: Effort & Inspection: normal respiratory effort and able to speak in complete sentences Cardio: Rate: regular rate Peripheral pulses: Peripheral pulses 2+ throughout GI: Palpation (GI): Soft to palpation Skin: Lesions: no lesions Rashes: no rashes Extrem: Other: left knee dressing is c/d/i. Able to dorsi/plantar flex. Calf is supple and nontender. Sensation intact. Pedal pulse intact. DS: Data Data Completed and Pending Pending studies at discharge: Pending at discharge 09/02/23 10:38 Surgical [PTH] Routine Discharge Plan Discharge Anticipated Discharge Date/Time: 09/03/23 13:23 Patient Disposition: Home Health Service Discharge Diagnosis: s/p LTKA Referrals: Geoffrey Patten PA-C [Physician M[employer] And Regulator Shop Supervisor] - 09/18/23 11:30 am Discharge Medications: New enoxaparin 40 mg/0.4 mL Syringe 40 mg subcut Q24H 1 Days Qty: 0.4 0RF Rx Instructions: Last dose of Lovenox at 10:00am on 09/04/23 then may resume Eliquis at regular dose. celecoxib 200 mg Capsule 200 mg PO BID 30 Days Qty: 60 0RF acetaminophen 325 mg Tablet 650 mg PO Q6H PRN (Reason: Pain, Mild (Pain Scale 1-3), fever or headache) 30 Days Qty: 240 0RF oxycodone 10 mg tablet 10 mg PO Q4H PRN (Reason: Pain, Moderate(Pain Scale 4-6)) 7 Days Qty: 42 0RF Rx Instructions: Partial Fill upon patient request. sennosides [Senna Lax] 8.6 mg Tablet 17.2 mg PO BEDTIME 30 Days Qty: 60 0RF Continued (DME) CPAP See Rx Instructions .Route .MEDSUPPLY Qty: 1 0RF Rx Instructions: As directed, for sleep apnea rosuvastatin 20 mg tablet 20 mg PO DAILY Qty: 90 3RF sertraline 100 mg tablet 150 mg PO QAM 90 Days Qty: 135 1RF lisinopril 10 mg Tablet 10 mg PO DAILY omeprazole 20 mg Tablet,Delayed Release (Dr/Ec) 20 mg PO DAILY multivitamin Tablet 1 tab PO DAILY ferrous fumarate 325 mg (106 mg iron) tablet 325 mg PO DAILY Qty: 90 0RF Multaq 400 mg tablet 400 mg PO BID 90 Days Qty: 180 3RF (DME) cane Device See Rx Instructions .MEDSUPPLY Qty: 1 0RF Rx Instructions: As directed (DME) [facility] See Rx Instructions .MEDSUPPLY Qty: 1 0RF Rx Instructions: Folding Front wheeled walker life time- 99 days Held Eliquis 5 mg tablet 5 mg PO BID 90 Days Qty: 180 3RF Hold Instructions: Resume on 09/04/23. Last dose of Lovenox at 10:00am on 09/04/23 then may resume Eliquis at regular dose. Discharge Orders: Discharge Order (Routine); Ordered 09/03/23 Ordered By: Samantha Durán Diet: Advance to usual diet Activity on Discharge: Use cane or walker Stand Alone Forms: Patient Portal Discharge page Print Language: Spanish Care Plan Goals: restore fxn to left knee Health Concerns: none Plan of Treatment: Physical Therapy for ROM 0-120, quad strength, gait training. Use walker for ambulation Limit stair climbing, No shower, No tub bath, No driving Lovenox brdge for the first 48 hours post op then transition to Eliquis 5mg po BID at regular dose Keep Aquacel dressing clean, dry and intact. Follow up with orthopedics in 2 weeks Assessment: stable for discharge
--- NOTE | 2023-09-02 21:27 | W.MHC.F2F ---
Service Date Service Date: 09/02/23 Encounter Date of encounter: 09/03/23 Reasons for Services Signs and symptoms assessed: s/p LTKA Pt. is considered homebound due to recent surgery. Unable to drive, poor balance, poor gait mechanics. Reason for physical therapy: home safety and mobility, therapeutic exercises, restore joint function, gait/transfer training, assess need for DME and ADL training Homebound: Leaving the home is medically contraindicated at this time without the asist of a device and/or another person due th the listed conditions above and below. Reason homebound: unsteady gait / fall risk, leg weakness, pain with ambulation, pain with transfers, poor balance / fall risk and unable to drive Certification: Based on the above findings, I certify that this patient is confined to the home and needs intermittent long-term care, physical therapy and/or speech therapy, or continues to need occupational therapy. The patient is under my care, and I have initiated the establishment of the plan of care. The patient will be followed by a physician who will periodically review the plan of care. Time Spent With Patient Time: Total time managing care of this patient today ____ minutes.
[2023-09-03] MEDS: Melatonin 3 MG TABLET 6 MG PO (01:18)
[2023-09-03 03:55] VITALS: BP 133/65; PULSE 68; RESP 16; TEMP 36.4; O2SAT 95
[2023-09-03] MEDS: HYDROmorphone HCl 0.5 MG/0.5 ML SYRINGE 0.25 MG IVPUSH ×2 (04:10→09:49)
[2023-09-03 06:17] LABS: MANUAL DIFF FLAG NO
[2023-09-03 06:38] LABS: Anion Gap 13 (12-20); Blood Urea Nitrogen 9 mg/dL (9-16); Calcium 9.5 mg/dL (8.4-10.2); Carbon Dioxide 27 mmol/L (22-29); Chloride 102 mmol/L (96-108); Creatinine Clr Calc Pharmacy 138.1; Estimated Glomerular Filt Rate > 60; Glucose Fasting 113 mg/dL (60-99); Potassium 4.1 mmol/L (3.3-5.1); Sodium 138 mmol/L (135-145)
[2023-09-03 06:39] LABS: Basophils Percent Auto 0.3 % (0-2); Eosinophils Percent Auto 0.1 % (0-4); Hematocrit 35.2 % (42.0-52.0); Hemoglobin 12.1 g/dl (14.0-18.0); Imm Gran Abs Auto 0.06 X10*3/uL (0.00-0.03); Imm Gran Pct Auto 0.5 % (0.0-0.4); Lymphocytes Absolute Auto 1.4 X10*3/uL (1.2-4.9); Lymphocytes Percent Auto 12.9 % (20-40); Mean Corpuscular HGB Conc 34.4 g/dl (31.0-36.0); Mean Corpuscular Hemoglobin 31.2 pg (27.0-33.0); Mean Corpuscular Volume 90.7 fL (80.0-98.0); Mean Platelet Volume 10.1 fL (9.4-12.4); Monocytes Absolute Auto 1.2 X10*3/uL (0.1-1.2); Monocytes Percent Auto 10.4 % (2-11); Neutrophils Absolute Auto 8.4 x10*3/uL (2.0-8.3); Neutrophils Percent Auto 75.8 % (45-73); Platelet Count 243 X10*3/uL (160-400); Red Blood Count 3.88 X10*6/uL (4.60-5.80); Red Cell Distribution Width 13.1 % (11.0-16.0); White Blood Count 11.1 X10*3/uL (4.8-10.8)
[2023-09-03 07:42] VITALS: BP 163/88; PULSE 68; RESP 18; TEMP 36.8; O2SAT 98
[2023-09-03] MEDS: oxyCODONE HCl ER 10 MG TAB.ER.12H PO (08:06)
[2023-09-03] MEDS: Omeprazole 20 MG CAPSULE.DR PO (08:07)
[2023-09-03] MEDS: lisinopriL 10 MG TABLET PO (08:07)
[2023-09-03] MEDS: Sertraline HCL 50 MG TABLET 150 MG PO (08:07)
[2023-09-03] MEDS: Dronedarone HCl 400 MG TABLET PO (08:07)
[2023-09-03] MEDS: 0.9 % Sodium Chloride Flush 3 ML SYRINGE IVFLUSH (08:07)
[2023-09-03] MEDS: oxyCODONE HCl Immed Release 5 MG TABLET 10 MG PO ×2 (08:12→11:29)
--- NOTE | 2023-09-03 09:40 | HO.POSTANES ---
Post Anesthesia Evaluation Post Anesthesia Evaluation Date of Service: 09/03/23 Vital Signs: Vital Signs Temp Pulse Resp BP Pulse Ox O2 Del Method 09/03/23 07:42 98.2 F 68 18 163/88 H 98 Room Air 09/03/23 03:55 97.5 F 68 16 133/65 95 Room Air Anesthesia: General Mental Status: Awake Pain Control: Satisfactory Nausea/Vomiting: None Hydration: Adequate Anesthesia-Related Issues: No Anes. Related Issues
[2023-09-03] MEDS: Celecoxib 200 MG CAPSULE PO (09:42)
[2023-09-03] MEDS: Enoxaparin Sodium 40 MG/0.4 ML SYRINGE SUBCUT (09:42)
[2023-09-03] MEDS: Acetaminophen 325 MG TABLET 650 MG PO (11:29)
--- NOTE | 2023-09-03 15:06 | MHC.CM.PN ---
IMM 09/03/23, PT S/P LT TKA, CM MET W/PT WHO REPORTS HE LIVES W/HIS , SON AND GSON, PT IS FULLY INDEP, HAS A FWW AND TOILET RISER, NO HOME SERVICES, PCPON FILE VERIFIED, PT REPORTS HE DOES HAVE A HCP AT HOME AND THAT IT IS AND DTR JERICA BERNARDO, COPY REQUESTED. DCP: HOME TODAY W/NEW [facility] FOR HOME PT AND FAMILY FOR TRANSPORT
== END 2023-09-03 11:42 | disposition home health service (06) | DRG 470 ==
LOC: HO.SSSA 10:28 → HO.S3 11:35
PROVIDERS: Orthopaedic Surgery; Admitting Provider Physician Assistant; PCP Nurse Practitioner Family; Visit Provider Physician Assistant
PROC: 0SRD0JA Replacement of Left Knee Joint with Synthetic Substitute, Uncemented, Open Approach (ICD-10-PCS; CPT 27447; principal; 2023-09-02 10:00)
DX: M17.12 Unilateral primary osteoarthritis, left knee (principal); I25.10 Atherosclerotic heart disease of native coronary artery without angina pectoris; I48.0 Paroxysmal atrial fibrillation; G47.33 Obstructive sleep apnea (adult) (pediatric); I10 Essential (primary) hypertension; N40.0 Benign prostatic hyperplasia without lower urinary tract symptoms; F43.10 Post-traumatic stress disorder, unspecified; K21.9 Gastro-esophageal reflux disease without esophagitis; G89.18 Other acute postprocedural pain; F17.210 Nicotine dependence, cigarettes, uncomplicated; Z71.6 Tobacco abuse counseling; Z79.01 Long term (current) use of anticoagulants; Z79.899 Other long term (current) drug therapy
CPT/HCPCS: 27447; 36415; 73560; 80048; 85025; 86850; 86900; 86901; 87640; 87641; 88305; 88311; 97110; 97116; 97162; C1776; J0131; J0665; J0690; J1100; J1170; J1650; J2250; J2405; J2704; J3010; J7120

== ENCOUNTER → 2023-09-02 07:32 | Outpatient (BNV) | payer MEDICARE, SELFPAY | PROVIDERS: Admitting Provider Physician Assistant; PCP Nurse Practitioner Family; Visit Provider Orthopaedic Surgery | DX: M17.12 Unilateral primary osteoarthritis, left knee (principal) | CPT/HCPCS: 27447; 99024; G0180 ==

== ENCOUNTER → 2023-09-02 07:32 | Outpatient (BNV) | payer MEDICARE, SELFPAY | PROVIDERS: Admitting Provider Physician Assistant; PCP Nurse Practitioner Family; Visit Provider Physician Assistant | DX: Z96.652 Presence of left artificial knee joint (principal) | CPT/HCPCS: 99222 ==

== ENCOUNTER 2023-09-18 11:14 | Outpatient (AMB) | payer MEDICARE, SELFPAY ==
--- NOTE | 2023-09-18 11:29 | A.OFFVIS_ITS ---
Intake Visit Reasons: 2WK PO: L TKA w/NE 09/02/23 Intake Note: Elizabeth 67 year old male who presents today for a post operative visit s/p left TKA on 09/02/23 NE. Patient reports he is doing well, states his pain level is a 1-3 out of 10. Allergies morphine [MORPHINE] Allergy (Severe, Verified 09/18/23 11:30) severe aggitation Medication List - Last Reconciled 09/18/23 by Geoffrey Patten PA-C acetaminophen 650 mg (2 x 325 mg) PO Q6H PRN 30 days apixaban (Eliquis) 5 mg PO BID 90 days cane As directed celecoxib 200 mg PO BID 30 days [CPAP As directed, for sleep apnea] dronedarone (Multaq) 400 mg PO BID 90 days enoxaparin 40 mg (0.4 mL) subcut Q24H 1 day ferrous fumarate 325 mg PO DAILY lisinopril 10 mg PO DAILY multivitamin 1 tab PO DAILY omeprazole 20 mg PO DAILY oxycodone 10 mg PO Q4H PRN 7 days rosuvastatin 20 mg PO DAILY sennosides (Senna Lax) 17.2 mg (2 x 8.6 mg) PO BEDTIME 30 days sertraline 150 mg (1.5 x 100 mg) PO QAM 90 days walker Folding Front wheeled walker life time- 99 days HPI HPI 2WK PO: L TKA w/NE 09/02/23: Details: 68-year-old male who returns to the office today for post-op left TKA, 09/02/[address] Navarrete. He currently states his pain level is 1-3 out of 10. He is doing well otherwise and has no other concerns today. [facility] Medical History Arthritis On anticoagulant therapy Murmur Routine medical exam Major depression, recurrent, chronic Skin cancer CAD (coronary artery disease) Hypertension Hyperlipemia PAF (paroxysmal atrial fibrillation) History of cardioversion Hx of skin cancer, basal cell PTSD (post-traumatic stress disorder) BPH (benign prostatic hyperplasia) AAA (abdominal aortic aneurysm) Anxiety and depression Anemia Diverticulosis GERD (gastroesophageal reflux disease) Sleep apnea Surgical History History of total right knee replacement Status post lumbar microdiscectomy Hx of blepharoplasty History of prostate surgery H/O vein stripping (~06/08/21) Hx of arthroscopy of left knee Hx of cardiac catheterization H/O umbilical hernia repair History of incision and drainage Hx of tonsillectomy History of esophagogastroduodenoscopy (EGD) History of cardiac radiofrequency ablation Hx of colonoscopy Hx of right knee surgery History of total left hip arthroplasty Family History Father Esophageal cancer Mother Esophageal cancer Social History Household Members: Family Housing: House Are you a primary director of healthcare systems to a significant other at home: No Do you presently have visiting nurse or other home services: No Alcohol intake: former Comment: All counts correct Patient Tobacco Use Status: Current everyday Tobacco user Smoking Start Date: 09/11/59 Tobacco use type: Cigarette Cigarettes Per Day: 2 Years Smoked: 25 e-Cigarette/Vaping Use: Never Used Second Hand Smoke Exposure: No Substance Use Type: Marijuana Advance Directives Date on File: 04/27/12 service: No Current occupational status: retired Cognitive needs: No Hearing needs: No Vision needs: No Review of Systems Const All systems reviewed & are unremarkable except as noted in HPI and below Physical Exam Extrem Other: Left knee: Incision clean, dry and intact. No redness or drainage. ROM is 5-95 degrees. Calf supple, nontender. NVI. Assessment & Plan Assessment & Plan (1) Status post left knee replacement: Code(s): Z96.652 - Presence of left artificial knee joint Category: Surgical Plan Kelly removed, steri strips applied. He will begin to transition to Outpatient PT to continue working on Gait training, ROM and quad strength. No driving for another 4 weeks. He will require ppx abx for dental procedures. He will f/u in 4 weeks, sooner if needed. Patient Instructions: Scribed for Geoffrey Patten PA-C, by Jorge Fontaine medical delivery technician, on 09/18/2023 at 11:30 AM EST.? I, Geoffrey Patten PA-C, have personally reviewed and agree with the information entered by the scribe. Coding Level of Care Code Global (22498) Diagnoses Status post left knee replacement Z96.652
== END 2023-09-18 12:17 | disposition home or self-care (01) ==
PROVIDERS: PCP Nurse Practitioner Family; Visit Provider Physician Assistant
DX: Z96.652 Presence of left artificial knee joint (principal)
CPT/HCPCS: 99024

== ENCOUNTER → 2023-09-18 11:14 | Outpatient (BNVA) | payer MEDICARE, SELFPAY | PROVIDERS: PCP Nurse Practitioner Family; Visit Provider Physician Assistant | DX: Z47.1 Aftercare following joint replacement surgery (principal); Z96.652 Presence of left artificial knee joint | CPT/HCPCS: 99212 ==

== ENCOUNTER 2023-10-01 08:03 | Outpatient (AMB) | payer MEDICARE, SELFPAY ==
[2023-10-01 08:04] VITALS: BP 114/72; PULSE 83; TEMP 36.9; O2SAT 98; BMI 35.9
--- NOTE | 2023-10-01 08:04 | AM.OFFWIN_ITS ---
Intake Vital Signs 10/01/23 08:04 Height 6 ft 2 in Weight 280 lb BMI 35.9 BP 114/72 Blood Pressure Location Rt brachial Position Sitting Pulse 83 Pulse Source Pulse Oximeter Temp 98.4 F Temp Source Oral Pulse Oximetry (%) 98 Oxygen Delivery Method Room Air Intake Visit Reasons: EP- UTI symptoms, urge, cloudy Intake Note: pt c/o urgency and cloudy urine, burning while urinating. Started 3 weeks ago Patient Tobacco Use Status: Current everyday Tobacco user Allergies morphine [MORPHINE] Allergy (Severe, Verified 10/01/23 08:11) severe aggitation HPI EP- UTI symptoms, urge, cloudy HPI Details This note is constructed using voice recognition software. While every effort has been made to ensure accuracy, finish molder errors may have been included. The patient is a 68 year old male who presents to the clinic today with urgency, burning, frequency of urination for the past 3 weeks. He reports that the symptoms have been getting worse, and when he woke up this morning he noticed that his urine was cloudy. He denies fever, chills, abdomen pain, back pain. [facility] Medical History Arthritis On anticoagulant therapy Murmur Routine medical exam Major depression, recurrent, chronic Skin cancer CAD (coronary artery disease) Hypertension Hyperlipemia PAF (paroxysmal atrial fibrillation) History of cardioversion Hx of skin cancer, basal cell PTSD (post-traumatic stress disorder) BPH (benign prostatic hyperplasia) AAA (abdominal aortic aneurysm) Anxiety and depression Anemia Diverticulosis GERD (gastroesophageal reflux disease) Sleep apnea Surgical History History of total right knee replacement Status post lumbar microdiscectomy Hx of blepharoplasty History of prostate surgery H/O vein stripping (~06/08/21) Hx of arthroscopy of left knee Hx of cardiac catheterization H/O umbilical hernia repair History of incision and drainage Hx of tonsillectomy History of esophagogastroduodenoscopy (EGD) History of cardiac radiofrequency ablation Hx of colonoscopy Hx of right knee surgery History of total left hip arthroplasty Family History Father Esophageal cancer Mother Esophageal cancer Social History Household Members: Family Housing: House Are you a primary home health aide caregiver to a significant other at home: No Do you presently have visiting nurse or other home services: No Alcohol intake: former Comment: All counts correct Patient Tobacco Use Status: Current everyday Tobacco user Smoking Start Date: 09/11/59 Tobacco use type: Cigarette Cigarettes Per Day: 2 Years Smoked: 25 e-Cigarette/Vaping Use: Never Used Second Hand Smoke Exposure: No Substance Use Type: Marijuana Advance Directives Date on File: 04/27/12 service: No Current occupational status: retired Cognitive needs: No Hearing needs: No Vision needs: No Review of Systems Const All systems reviewed & are unremarkable except as noted in HPI and below Physical Exam Vital Signs: Last Vital Signs Temp 98.4 F 10/01/23 08:04 Pulse 83 10/01/23 08:04 BP 114/72 10/01/23 08:04 Pulse Ox 98 10/01/23 08:04 Oxygen Delivery Method Room Air 10/01/23 08:04 BMI result Body Mass Index 35.9 Const General: cooperative, healthy appearing, comfortable, no acute distress and alert Orientation/consciousness: patient oriented x3 Limitations: no limitations General: Yes no CVA tenderness Back/Spine/Pelvis Back: no CVA tenderness Skin General skin exam: no rashes or lesions noted, elasticity normal and turgor normal Neuro General: patient oriented x3 Psych Appearance: grossly normal Mental Status: mental status grossly normal Speech and movement: Normal speech and movement present Affect: normal affect Results AMB Urinalysis, Automated UA Leukoctes 125 Bo/uL Last Edit by MARNIE Richey on 10/01/23 08: 11 UA Nitrite Negative Last Edit by MARNIE Richey on 10/01/23 08:11 UA Urobilinogen 0.2 mg/dL Last Edit by MARNIE Richey on 10/01/23 08:11 UA Protein 0 mg/dL Last Edit by MARNIE Richey on 10/01/23 08:11 UA pH 6.0 Last Edit by MARNIE Richey on 10/01/23 08:11 UA Blood 0 Graham/uL Last Edit by MANRIE Richey on 10/01/23 08:11 UA Specific [place] 1.020 Last Edit by MARNIE Richey on 10/01/23 08:11 UA Ketone Negative Last Edit by MARNIE Richey on 10/01/23 08:11 UA Bilirubin 0 mg/dL Last Edit by MARNIE Richey on 10/01/23 08:11 UA Glucose 0 mg/dL Last Edit by MARNIE Richey on 10/01/23 08:11 Results Reviewed Results Reviewed: Laboratory Last Values Urine pH (Auto) 6.0 10/01/23 08:10 Specific [place] (Auto) 1.020 10/01/23 08:10 Urine Protein (Auto) 0 mg/dL 10/01/23 08:10 Glucose (UA)(Auto) 0 mg/dL 10/01/23 08:10 Urine Ketones (Auto) Negative 10/01/23 08:10 Urine Blood (Auto) 0 Graham/uL 10/01/23 08:10 Urine Nitrite (Auto) Negative 10/01/23 08:10 Urine Bilirubin (Auto) 0 mg/dL 10/01/23 08:10 Urine Urobilinogen (Auto) 0.2 mg/dL 10/01/23 08:10 Leukocyte Esterase (Auto) 125 Bo/uL 10/01/23 08:10 Assessment & Plan Assessment & Plan (1) Urinary tract infection: Code(s): N39.0 - Urinary tract infection, site not specified Qualifiers: Urinary tract infection type: acute cystitis Hematuria presence: without hematuria Qualified Code(s): N30.00 - Acute cystitis without hematuria Plan: In office urine consistent with likely urinary tract infection. Antibiotic therapy sent to requested pharmacy. Reviewed potential side effects of medication, advised patient to take medication until complete. Advised to increase hydration. Advised patient to follow up with ongoing symptoms or worsening symptoms. Plan See above for full details and plan. Orders: Orders AMB Urinalysis Automated Today Kaykay Culp PA-C Z13.9 - Encounter for ks alondra, unspecified Medications: New sulfamethoxazole-trimethoprim 800-160 mg (Bactrim DS) 1 tab PO BID 5 days 10 tabs 0RF Sweta Delgado NP Coding Level of Care Code Est Pt Level 3 (05583) Diagnoses Acute cystitis without hematuria N30.00 Urinary tract infection type: acute cystitis Hematuria presence: without hematuria
== END 2023-10-01 08:47 | disposition home or self-care (01) ==
PROVIDERS: PCP Nurse Practitioner Family; Visit Provider Registered Nurse
DX: N30.00 Acute cystitis without hematuria (principal)
CPT/HCPCS: 81003; 99213

== ENCOUNTER 2023-10-06 08:07 | Outpatient (AMB) | payer MEDICARE, SELFPAY ==
--- NOTE | 2023-10-06 08:09 | MHC.OFFWIV ---
Intake Vital Signs 10/06/23 08:10 Height 6 ft 2 in Weight 276 lb BMI 35.4 BP 114/78 Blood Pressure Location Rt radial Position Sitting Pulse 72 Pulse Source Pulse Oximeter Temp 98.1 F Temp Source Oral Pulse Oximetry (%) 97 Oxygen Delivery Method Room Air Intake Visit Reasons: EP- UTI meds are too strong, pt was up all night Intake Note: pt c/o UTI. Meds prescribed 09/30 too strong for pt Patient Tobacco Use Status: Current everyday Tobacco user Allergies morphine [MORPHINE] Allergy (Severe, Verified 10/06/23 08:28) severe aggitation sulfamethoxazole [From Bactrim] Adverse Reaction (Intermediate, Verified 10/06/23 08:28) anxiety trimethoprim [From Bactrim] Adverse Reaction (Intermediate, Verified 10/06/23 08:28) anxiety Do you need a note to return to daycare/school/sports/work: No HPI HPI Comments History of Present Illness Details Patient is a 68-year-old male who was diagnosed with a UTI on September 30. He was prescribed Bactrim for 5 days which she started taking but it made him feel anxious and nervous and he could not sleep. He states he took 5 pills, 12 hours apart. He denies any symptoms of a UTI anymore, he denies burning with urination, increased frequency, increased urgency or low back pain. [facility] Medical History Arthritis On anticoagulant therapy Murmur Routine medical exam Major depression, recurrent, chronic Skin cancer CAD (coronary artery disease) Hypertension Hyperlipemia PAF (paroxysmal atrial fibrillation) History of cardioversion Hx of skin cancer, basal cell PTSD (post-traumatic stress disorder) BPH (benign prostatic hyperplasia) AAA (abdominal aortic aneurysm) Anxiety and depression Anemia Diverticulosis GERD (gastroesophageal reflux disease) Sleep apnea Surgical History History of total right knee replacement Status post lumbar microdiscectomy Hx of blepharoplasty History of prostate surgery H/O vein stripping (~06/08/21) Hx of arthroscopy of left knee Hx of cardiac catheterization H/O umbilical hernia repair History of incision and drainage Hx of tonsillectomy History of esophagogastroduodenoscopy (EGD) History of cardiac radiofrequency ablation Hx of colonoscopy Hx of right knee surgery History of total left hip arthroplasty Family History Father Esophageal cancer Mother Esophageal cancer Social History Household Members: Family Housing: House Are you a primary home care physical therapist to a significant other at home: No Do you presently have visiting nurse or other home services: No Alcohol intake: former Comment: All counts correct Patient Tobacco Use Status: Current everyday Tobacco user Smoking Start Date: 09/11/59 Tobacco use type: Cigarette Cigarettes Per Day: 2 Years Smoked: 25 e-Cigarette/Vaping Use: Never Used Second Hand Smoke Exposure: No Substance Use Type: Marijuana Advance Directives Date on File: 04/27/12 service: No Current occupational status: retired Cognitive needs: No Hearing needs: No Vision needs: No Review of Systems Const All systems reviewed & are unremarkable except as noted in HPI and below Physical Exam Vital Signs: BMI result Body Mass Index 35.4 Const General: cooperative, healthy appearing, comfortable, no acute distress and well developed Orientation/consciousness: patient oriented x3 Limitations: no limitations HEENT Head: Yes normal to inspection Ears: hearing grossly normal bilaterally General nose exam: Normal external nose present Face and sinus: Yes normal facial exam Eyes General: appearance normal, both eyes and all related structures Neck Neck: Yes normal visual inspection and Yes full ROM Resp Effort & Inspection: normal respiratory effort and able to speak in complete sentences Skin General skin exam: no rashes or lesions noted Neuro General: patient oriented x3 Extrem General: Yes normal to inspection Assessment & Plan Assessment & Plan (1) Medication reaction: Code(s): T50.905A - Adverse effect of unspecified drugs, medicaments and biological substances, initial encounter Qualifiers: Encounter type: initial encounter Qualified Code(s): T50.905A - Adverse effect of unspecified drugs, medicaments and biological substances, initial encounter Plan: UA negative for infection, as patient is asymptomatic, the course of Bactrim he took must have been sufficient to clear up his UTI. Recommended he stop taking the medication and I will add it to his allergy list Plan See above Coding Level of Care Code Est Pt Level 3 (38881) Diagnoses Adverse effect of drug, initial encounter T50.905A Encounter type: initial encounter
[2023-10-06 08:10] VITALS: BP 114/78; PULSE 72; TEMP 36.7; O2SAT 97; BMI 35.4
== END 2023-10-06 08:24 | disposition home or self-care (01) ==
PROVIDERS: PCP Nurse Practitioner Family; Visit Provider Physician Assistant
DX: R45.0 Nervousness (principal); T50.905A Adverse effect of unspecified drugs, medicaments and biological substances, initial encounter; N39.0 Urinary tract infection, site not specified
CPT/HCPCS: 81003; 99213

== ENCOUNTER 2023-10-16 10:00 | Outpatient (RCR) | payer MEDICARE, SELFPAY ==
[2023-09-19 10:04] VITALS: BP 131/61; PULSE 83; O2SAT 96
--- NOTE | 2023-09-19 11:25 | MHC.PT.EP ---
[facility] [place] Office [place] Office [place] Office [address] Aletha Burrell [address] [phone] F: [phone] F: [phone] F: [phone] F: [phone] Physical Therapy Plan of Care Date of Evaluation: 09/19/23 Date of Surgery: 09/02/23 Diagnosis: S/P Lt TKA Assessment: 68 YO MALE REF TO PT S/P Lt TKA ON 09/02/23; H/O PRIOR Rt TKA AND Lt YUNIER. HE RESIDES W HIS IN A 2 LEVEL HOME AND IS CURRENTLY AMB W A CANE. OBJECTIVE FINDINGS: PO ROM DEFICITS LEFT KNEE, TIGHT HIP FLEXORS/ CALF MM, (+) STRENGTH DEFICITS, AND PAIN IN LEFT KNEE. FUNCTIONALLY, THE Pt IS LIMITED WITH DECR STANDING GUILLERMINA, ALTERED GAIT MECHANICS, STAIR MGMT, AND RESTRICTED WITH MORE PHYSICALLY DEMANDING ADLs. Pt WOULD BENEFIT FROM PT AT THIS TIME TO GUIDE HIM IN HIS POST-OP COURSE, DEV A PROGR HEP, ADDRESS PAIN MGMT, AND OBTAINING MAXIMAL LEVEL OF FUNCTIONAL INDEPENDENCE. HE AGRESS W PT POC. Frequency and Duration: The patient will be seen 2 x WK x 5 WKS Short Term Goals: *Pt'S LEFT KNEE PAIN WILL DECR TO 2-3/10 *Pt DEMON APPROP BED MOB/ POSITIONING/ SIT <-> STAND TRANSFERS *Pt DEMON Lt KNEE AROM 0* TO 120* INITIATE HEP-> IMPROVE Lt QUAD ACTIV *MONITOR Lt ANT KNEE SCAR MOBILITY AND PATELLAR MOBILITY INCISION HEALS Mcc Goals: *Pt WILL DEMON EFFICIENT GAIT MECHANICS W/O ASST DEVICE ON LEVEL GROUND AND STAIRS *Pt WILL IMPROVE LUMBOPELVIC/ Lt LE STRENGTH TO AT LEAST 5-/5 *Pt RESUME AT LEAST PLOF EVIDENT W IMPROVED LEFI SCORE (AT EVAL 30/80 ) *Pt INDEP W PROGR HEP AND SELF-SX MGMT TECHN Treatment Plan: Modalities to reduce pain, spasms and effusion. Manual therapy to restore motion and function. Therapeutic exercise to improve strength and flexibility. Neuromuscular re-education for posture and balance. Therapeutic activities to return to functional activities of daily living. Electronically signed by: FRANK OSORIO,PT Please sign and return to therapist. Thank you for your referral.
--- NOTE | 2023-10-16 10:48 | MHC.PT.DC ---
[facility] [place] Office [place] Office [place] Office [address] Aletha Burrell [address] [phone] F: [phone] F: [phone] F: [phone] F: [phone] Physical Therapy Discharge Report Diagnosis: S/P Lt TKA Date of Surgery: 09/02/23 Date of Evaluation: 09/19/23 Date of Discharge: 10/16/23 Treatments to Date: 8 Cancellations to Date: 0 No Shows to Date: 0 Discharge Status: Achieved Goals Improved Function Independent with HEP Discharge Summary: BRADY US MOTIVATED W HIS HEP AND CONT TO ADDRESS STRENGTH- HE FEELS READY FOR D/C FROM OU-Pt PT- HE HAS MET HIS PT GOALS-> 0* TO 120* AROM Lt KNEE, IMPROVED STRENGTH, AND INDEP FUNCT MOB W/O ASST DEVICES- HIS LEFI SCORE TODAY AT D/C IS 65/ 80 AND AT EVAL 30/80. Electronically signed by: FRANK OSORIO,PT Please sign and return to therapist. Thank you for your referral.
== END 2023-10-16 10:48 | disposition home or self-care (01) ==
LOC: HO.PT 10:00
PROVIDERS: PCP Nurse Practitioner Family; Visit Provider Physician Assistant
DX: Z96.652 Presence of left artificial knee joint (principal)
CPT/HCPCS: 97110; 97162

== ENCOUNTER 2023-10-17 09:45 | Outpatient (AMB) | payer MEDICARE, SELFPAY ==
--- NOTE | 2023-10-17 10:04 | MHC.OFFVIS ---
Vital Signs 10/17/23 10:05 Height 6 ft 2 in Weight 178 lb BMI 22.9 Intake Visit Reasons: 6 WK PO: L TKA w/NE 09/02/23 Intake Note: Elizabeth 67 year old male who presents today for a post operative visit s/p left TKA on 09/02/23 NE.Patient reports that he is dong well with no concerns. Allergies morphine [MORPHINE] Allergy (Severe, Verified 10/06/23 08:28) severe aggitation sulfamethoxazole [From Bactrim] Adverse Reaction (Intermediate, Verified 10/06/23 08:28) anxiety trimethoprim [From Bactrim] Adverse Reaction (Intermediate, Verified 10/06/23 08:28) anxiety HPI HPI 6 WK PO: L TKA w/NE 09/02/23: Details: Elizabeth 67 year old male who presents today for a post operative visit s/p left TKA on 09/02/23 NE.Patient reports that he is dong well with no concerns. [facility] Medical History Arthritis On anticoagulant therapy Murmur Routine medical exam Major depression, recurrent, chronic Skin cancer CAD (coronary artery disease) Hypertension Hyperlipemia PAF (paroxysmal atrial fibrillation) History of cardioversion Hx of skin cancer, basal cell PTSD (post-traumatic stress disorder) BPH (benign prostatic hyperplasia) AAA (abdominal aortic aneurysm) Anxiety and depression Anemia Diverticulosis GERD (gastroesophageal reflux disease) Sleep apnea Surgical History History of total right knee replacement Status post lumbar microdiscectomy Hx of blepharoplasty History of prostate surgery H/O vein stripping (~06/08/21) Hx of arthroscopy of left knee Hx of cardiac catheterization H/O umbilical hernia repair History of incision and drainage Hx of tonsillectomy History of esophagogastroduodenoscopy (EGD) History of cardiac radiofrequency ablation Hx of colonoscopy Hx of right knee surgery History of total left hip arthroplasty Family History Father Esophageal cancer Mother Esophageal cancer Social History Household Members: Family Housing: House Are you a primary behavioral health care manager to a significant other at home: No Do you presently have visiting nurse or other home services: No Alcohol intake: former Comment: All counts correct Patient Tobacco Use Status: Current everyday Tobacco user Smoking Start Date: 09/11/59 Tobacco use type: Cigarette Cigarettes Per Day: 2 Years Smoked: 25 e-Cigarette/Vaping Use: Never Used Second Hand Smoke Exposure: No Substance Use Type: Marijuana Advance Directives Date on File: 04/27/12 service: No Current occupational status: retired Cognitive needs: No Hearing needs: No Vision needs: No Physical Exam Vital Signs: BMI result Body Mass Index 22.9 Extrem Other: inc c/d/i 0-120 mild effusion Assessment & Plan Assessment & Plan (1) Status post left knee replacement: Code(s): Z96.652 - Presence of left artificial knee joint Category: Surgical Plan: S/p left TKA doing great cont PT f/u as needed Coding Level of Care Code Global (80374) Diagnoses Status post left knee replacement Z96.652
[2023-10-17 10:05] VITALS: BMI 22.9
== END 2023-10-17 10:34 | disposition home or self-care (01) ==
PROVIDERS: PCP Nurse Practitioner Family; Visit Provider Orthopaedic Surgery
DX: Z96.652 Presence of left artificial knee joint (principal)
CPT/HCPCS: 99024

== ENCOUNTER → 2023-10-17 09:45 | Outpatient (BNVA) | payer MEDICARE, SELFPAY | PROVIDERS: PCP Nurse Practitioner Family; Visit Provider Orthopaedic Surgery | DX: Z47.1 Aftercare following joint replacement surgery (principal); Z96.652 Presence of left artificial knee joint | CPT/HCPCS: 99212 ==

== ENCOUNTER 2023-10-24 06:07 | Outpatient (REF) | payer MEDICARE, SELFPAY ==
[2023-10-24 10:31] LABS: MANUAL DIFF FLAG NO
[2023-10-24 10:36] LABS: Basophils Absolute Auto 0.1 X10*3/uL (0.0-0.2); Basophils Percent Auto 0.8 % (0-2); Eosinophils Absolute Auto 0.1 X10*3/uL (0.0-0.4); Eosinophils Percent Auto 1.8 % (0-4); Hematocrit 38.7 % (42.0-52.0); Hemoglobin 12.7 g/dl (14.0-18.0); Imm Gran Abs Auto 0.02 X10*3/uL (0.00-0.03); Imm Gran Pct Auto 0.3 % (0.0-0.4); Lymphocytes Absolute Auto 1.4 X10*3/uL (1.2-4.9); Mean Corpuscular HGB Conc 32.8 g/dl (31.0-36.0); Mean Corpuscular Hemoglobin 30.3 pg (27.0-33.0); Mean Corpuscular Volume 92.4 fL (80.0-98.0); Monocytes Absolute Auto 0.6 X10*3/uL (0.1-1.2); Monocytes Percent Auto 10.5 % (2-11); Neutrophils Absolute Auto 3.9 x10*3/uL (2.0-8.3); Neutrophils Percent Auto 63.6 % (45-73); Platelet Count 265 X10*3/uL (160-400); Red Blood Count 4.19 X10*6/uL (4.60-5.80); Red Cell Distribution Width 13.9 % (11.0-16.0); White Blood Count 6.1 X10*3/uL (4.8-10.8)
[2023-10-24 10:42] LABS: Appearance Urine Clear; Color Urine Yellow; Glucose Urine UA Negative (Negative); Leukocyte Esterase Urine Large (3+) (Negative); Nitrite Urine Positive (Negative); PH 6.5 (5.0-9.0); UMIC TRIGGER UA YES; UMIC TRIGGER UACC YES; Urine Blood Negative (Negative); Urine Ketones Negative (Negative); Urine Protein Negative (Neg-Trace)
[2023-10-24 10:48] LABS: Bacteria Urine 4+ (None Seen); Hyaline Casts Urine 0-2 /LPF (0-2); RBC Urine 0-2 /HPF (0-2); Squamous Epithelial Cell Urine 0-2 /HPF (0-2); UACC Culture Trigger YES; WBC Urine 21-50 /HPF (0-5)
[2023-10-24 11:05] LABS: Alanine Aminotransferase 13 U/L (0-40); Albumin Level 4.4 g/dL (3.5-5.0); Alkaline Phosphatase 89 U/L (39-117); Anion Gap 13 (12-20); Aspartate Amino Transferase 17 U/L (5-37); Bilirubin Total 0.3 mg/dL (0.0-1.0); Blood Urea Nitrogen 13 mg/dL (9-16); Calcium 10.1 mg/dL (8.4-10.2); Carbon Dioxide 29 mmol/L (22-29); Chloride 102 mmol/L (96-108); Cholesterol 130 mg/dL (<200); Estimated Glomerular Filt Rate > 60; Glucose Fasting 108 mg/dL (60-99); HDL Cholesterol 49 mg/dL (>40); LDL Cholesterol Calculated 63 mg/dL (<100); Potassium 4.7 mmol/L (3.3-5.1); Sodium 139 mmol/L (135-145); Total Protein 7.6 g/dL (6.5-8.0); Triglycerides 91 mg/dL (<150)
[2023-10-24 11:22] LABS: TSH reflex Free T4 1.16 uIU/mL (0.32-4.0)
== END 2023-10-24 06:08 | disposition home or self-care (01) ==
LOC: HO.HMGCLDS 06:07
PROVIDERS: PCP Nurse Practitioner Family; Visit Provider Nurse Practitioner Family
DX: I25.10 Atherosclerotic heart disease of native coronary artery without angina pectoris (principal); I48.0 Paroxysmal atrial fibrillation; R30.0 Dysuria
CPT/HCPCS: 36415; 80053; 80061; 81001; 84443; 85025; 87086; 87088; 87186

== ENCOUNTER → 2023-11-26 08:43 | Outpatient (BNVA) | payer MEDICARE, SELFPAY | PROVIDERS: PCP Nurse Practitioner Family; Visit Provider Internal Medicine Cardiovascular Disease ==

== ENCOUNTER 2023-11-27 10:55 | Outpatient (AMB) | payer MEDICARE, SELFPAY ==
--- NOTE | 2023-11-27 11:05 | A.OFFPC_ITS ---
Vital Signs 11/27/23 11:06 Height 6 ft 2 in Weight 278 lb BMI 35.7 BP 122/76 Blood Pressure Location Lt brachial Position Sitting Pulse 80 Pulse Source Pulse Oximeter Pulse Oximetry (%) 97 Oxygen Delivery Method Room Air Intake Visit Reasons: Knee follow up/reschedule Intake Note: pt is here for a follow up regarding knee surgery Allergies morphine [MORPHINE] Allergy (Severe, Verified 11/27/23 11:18) severe aggitation sulfamethoxazole [From Bactrim] Adverse Reaction (Intermediate, Verified 11/27/23 11:18) anxiety trimethoprim [From Bactrim] Adverse Reaction (Intermediate, Verified 11/27/23 11:18) anxiety Medication List - Last Reconciled 11/27/23 by LAUREANO Carlisle acetaminophen 650 mg (2 x 325 mg) PO Q6H PRN 30 days apixaban (Eliquis) 5 mg PO BID 90 days cane As directed cefpodoxime 200 mg PO BID [CPAP As directed, for sleep apnea] dronedarone (Multaq) 400 mg PO BID 90 days lisinopril 10 mg PO DAILY multivitamin 1 tab PO DAILY omeprazole 20 mg PO DAILY rosuvastatin 20 mg PO DAILY sertraline 150 mg (1.5 x 100 mg) PO QAM 90 days walker Folding Front wheeled walker life time- 99 days Tobacco use date assessed: 08/11/23 Fall risk assessment: No Falls in past year Last assessed Fall Risk: 11/27/23 Dental Screening Dental Screen Date: 05/06/23 HPI Knee follow up/reschedule HPI Details Pt underwent a left TKA on 09/02/23. He has followed up with ortho. He is done with PT. Pt is going to the gym 4 times a week and he is biking. Pt reports doing well. Pt has a hx of gastritis, requesting a referral to his gastro for possible endo. He is currently on a PPI and does not want to increase the dosage or change meds. Will refer to GI. Denies fever, chills, and dizziness. [facility] Medical History Arthritis On anticoagulant therapy Murmur Routine medical exam Major depression, recurrent, chronic Skin cancer CAD (coronary artery disease) Hypertension Hyperlipemia PAF (paroxysmal atrial fibrillation) History of cardioversion Hx of skin cancer, basal cell PTSD (post-traumatic stress disorder) BPH (benign prostatic hyperplasia) AAA (abdominal aortic aneurysm) Anxiety and depression Anemia Diverticulosis GERD (gastroesophageal reflux disease) Sleep apnea Surgical History History of total right knee replacement Status post lumbar microdiscectomy Hx of blepharoplasty History of prostate surgery H/O vein stripping (~06/08/21) Hx of arthroscopy of left knee Hx of cardiac catheterization H/O umbilical hernia repair History of incision and drainage Hx of tonsillectomy History of esophagogastroduodenoscopy (EGD) History of cardiac radiofrequency ablation Hx of colonoscopy Hx of right knee surgery History of total left hip arthroplasty Family History Father Esophageal cancer Mother Esophageal cancer Social History Household Members: Family Housing: House Are you a primary progressive care manager to a significant other at home: No Do you presently have visiting nurse or other home services: No Alcohol intake: former Comment: All counts correct Patient Tobacco Use Status: Current everyday Tobacco user Smoking Start Date: 09/11/59 Tobacco use type: Cigarette Cigarettes Per Day: 2 Years Smoked: 25 e-Cigarette/Vaping Use: Never Used Second Hand Smoke Exposure: No Substance Use Type: Marijuana Advance Directives Date on File: 04/27/12 service: No Current occupational status: retired Cognitive needs: No Hearing needs: No Vision needs: No Questionnaire Thrive Questionnaire Date Thrive assessed: 11/20/23 I am a: Patient What is your living situation today?: I choose not to answer this question Within the past 12 months, did the food you bought not last and you didn't have the money to get more?: I choose not to answer this question Within the past 12 months, did you worry whether your food would run out before you got money to buy more?: I choose not to answer this question Do you have trouble paying for medicines?: I choose not to answer this question Do you have trouble getting transportation to medical appointments?: I choose not to answer this question Do you have trouble paying your heating and electricity bill?: I choose not to answer this question Do you have trouble taking care of your child, family member or friend?: I choose not to answer this question Do you have trouble with day-to-day activities such as bathing, preparing meals, shopping, managing finances, etc.?: I choose not to answer this question Are you currently unemployed and looking for a job?: I choose not to answer this question Are you interested in more education?: I choose not to answer this question Please select the resources that you would like help with: None Currently or been in a relationship where the following occur: I choose not to answer THRIVE Score: 0 AUDIT C Alcohol Use Questionnaire (AUDIT-C) 1. How often do you have a drink containing alcohol?: Never 3. How often do you have six or more drinks on one occasion?: Never Total Score: 0 DANIEL-7 AMB Questionnaire DANIEL-7 Date DANIEL - 7 assessed: 05/06/23 Feeling nervous, anxious, or on edge: 0 = Not at all Not being able to stop or control worryin = Not at all Worrying too much about different things: 0 = Not at all Trouble relaxin = Not at all Being so restless that it is hard to sit still: 0 = Not at all Becoming easily annoyed or irritable: 3 = Nearly every day Feeling afraid as if something awful might happen: 0 = Not at all Total DANIEL-7 score (0-4 normal; 5-9 mild; 10-14 moderate; 15-21 severe): 3 Source: Developed by Drs. Gamaliel Good, Yolanda Martinez, Jacob Johnston and colleagues, with an educational marvel from [employer]. Review of Systems Const Reports as per HPI Physical exam (Primary Care) Vital Signs: Last Vital Signs Pulse 80 11/27/23 11:06 BP 122/76 11/27/23 11:06 Pulse Ox 97 11/27/23 11:06 Oxygen Delivery Method Room Air 11/27/23 11:06 BMI result Body Mass Index 35.7 Tobacco/Smoking Status: Tobacco use Status Tobacco use date assessed 08/11/23 11/27/23 11:09 Patient Tobacco Use Status Current everyday Tobacco 11/27/23 11:09 Tobacco use type Cigarette 11/27/23 11:09 e-Cigarette/Vaping Use Never Used 11/27/23 11:09 Thrive Assessment: Date of Thrive Assessment Date Thrive assessed 11/20/23 11/27/23 11:09 Currently or been in a relationship where the following occur: I choose not to answer Const General: cooperative Nutritional Appearance: obese Orientation/consciousness: patient oriented x3 Resp Effort & Inspection: normal respiratory effort Auscultation: clear to auscultation bilaterally Cardio Rate: regular rate Rhythm: regular rhythm Heart sounds: S1 normal heart sound present, S2 normal heart sound present and Murmur heart sound present systolic Neuro General: patient oriented x3 Extrem Other: + dorsalis pedis (left) Psych Appearance: grossly normal Mental Status: mental status grossly normal Speech and movement: Normal speech and movement present Affect: normal affect Attitude: cooperative Thought process: Normal thought process present Thought content: Normal thought content present Insight: Good insight present (Psych) Judgement: Good judgement present (Psych) Coding Level of Care Code Est Pt Level 3 (68934) Diagnoses Gastritis K29.70 History of total left knee replacement Z96.652 Assessment & Plan Assessment & Plan (1) Gastritis: Code(s): K29.70 - Gastritis, unspecified, without bleeding Category: Medical Plan: cont PPI, follow up with gastro (2) History of total left knee replacement: Code(s): Z96.652 - Presence of left artificial knee joint Category: Surgical Plan: doing quit well, cont gym activities and biking Plan The patient agreed to the use of a biomedical repair technician for this encounter. Scribed for RISA Emanuel-DAYO by Juli Quesada biomedical repair technician, on 11/27/2023 at 11:15 EST. Orders: Referrals Gastroenterology Referral K29.70 - Gastritis, unspecified, without bleeding
[2023-11-27 11:06] VITALS: BP 122/76; PULSE 80; O2SAT 97; BMI 35.7
== END 2023-11-27 11:39 | disposition home or self-care (01) ==
PROVIDERS: PCP Nurse Practitioner Family; Visit Provider Nurse Practitioner Family
DX: K29.70 Gastritis, unspecified, without bleeding (principal); Z96.652 Presence of left artificial knee joint

== ENCOUNTER → 2023-11-27 10:55 | Outpatient (BNVA) | payer MEDICARE, SELFPAY | PROVIDERS: PCP Nurse Practitioner Family; Visit Provider Nurse Practitioner Family | DX: K29.70 Gastritis, unspecified, without bleeding (principal); Z96.652 Presence of left artificial knee joint | CPT/HCPCS: 99212 ==

== ENCOUNTER 2023-12-16 13:12 | Outpatient (AMB) | payer MEDICARE, SELFPAY ==
--- NOTE | 2023-12-16 13:32 | A.OFFVIS_ITS ---
Vital Signs 12/16/23 13:33 Height 6 ft 2 in Weight 278 lb BMI 35.7 Intake Visit Reasons: VV on right leg Intake Note: Follow up for VV on Right LE, Hx of Left LE Micro 06/08/21. Pt states his Right LE has swollen VV that are very heavy, painful and feel like they are going to burst going down his right pre-tibial area. Has had bilateral knee surgeries and spine surgery since last visit. Accompanied by: Self / Same As Patient Allergies morphine [MORPHINE] Allergy (Severe, Verified 12/16/23 13:36) severe aggitation sulfamethoxazole [From Bactrim] Adverse Reaction (Intermediate, Verified 12/16/23 13:36) anxiety trimethoprim [From Bactrim] Adverse Reaction (Intermediate, Verified 12/16/23 13:36) anxiety HPI HPI VV on right leg: Details: Marv, a pleasant 68-year-old male, presenting today as a consult from his PCP for right lower extremity pain with varicosities. He has a history of left lower extremity micro on 06/08/2021 as well as a left RFA on 05/11/2021 in this office. Complaints include pain over varicosities, slight swelling of lower extremities, cramping, fatigue, and heaviness of the lower extremities. It has been affecting their daily activities including walking, standing, and working o ut. It is noted more so in right leg. There are some varicosities noted in the upper left inner thigh. He does continue to smoke approximately couple of cigarettes a day. He is not a diabetic. Patient has a history of left lower extremity microphlebectomy as well as RFA. Patient denies any history of DVT/ PE. Patient denies any history of phlebitis. Trial of compression includes - elevation with some relief. Patient does not tolerate compression stockings. They now present for vascular evaluation regarding their varicose veins. [facility] Medical History Arthritis On anticoagulant therapy Murmur Routine medical exam Major depression, recurrent, chronic Skin cancer CAD (coronary artery disease) Hypertension Hyperlipemia PAF (paroxysmal atrial fibrillation) History of cardioversion Hx of skin cancer, basal cell PTSD (post-traumatic stress disorder) BPH (benign prostatic hyperplasia) AAA (abdominal aortic aneurysm) Anxiety and depression Anemia Diverticulosis GERD (gastroesophageal reflux disease) Sleep apnea Surgical History History of total right knee replacement Status post lumbar microdiscectomy Hx of blepharoplasty History of prostate surgery H/O vein stripping (~06/08/21) Hx of arthroscopy of left knee Hx of cardiac catheterization H/O umbilical hernia repair History of incision and drainage Hx of tonsillectomy History of esophagogastroduodenoscopy (EGD) History of cardiac radiofrequency ablation Hx of colonoscopy Hx of right knee surgery History of total left hip arthroplasty Family History Father Esophageal cancer Mother Esophageal cancer Social History (Updated 12/16/23 @ 13:37 by COLIN Gallegos) Household Members: Family Housing: House Are you a primary wound care nurse to a significant other at home: No Do you presently have visiting nurse or other home services: No Alcohol intake: former Comment: All counts correct Patient Tobacco Use Status: Current someday Tobacco user Tobacco use type: Cigarette Cigarettes Per Day: 2 Years Smoked: 25 e-Cigarette/Vaping Use: Never Used Second Hand Smoke Exposure: No Substance Use Type: Marijuana Advance Directives Date on File: 04/27/12 service: No Current occupational status: retired Cognitive needs: No Hearing needs: No Vision needs: No Review of Systems Const Reports as per HPI and Denies weakness ENT Reports Normal hearing present and Denies dizziness Card Reports as per HPI, Denies chest pain, Denies chest pain at rest, Denies chest pain with activity, Denies dyspnea and Denies dyspnea on exertion Resp Reports as per HPI, Denies cough, Denies dyspnea and Denies dyspnea on exertion GI Reports as per HPI, Denies abdominal pain, Denies nausea and Denies vomiting Musc Denies numbness Skin/Breast Reports as per HPI, Denies erythema and Denies wounds Neuro Reports Normal hearing present, Denies dizziness, Denies numbness, Denies Sensory deficit (Neuro) and Denies weakness Psych Reports no additional complaints Endo Reports no additional complaints Physical Exam Vital Signs: BMI result Body Mass Index 35.7 Const General: healthy appearing and no acute distress Orientation/consciousness: patient oriented x3 HEENT Head: Yes normal to inspection Ears: hearing grossly normal bilaterally Mouth: Normal oral and palatal mucosa present Resp Effort & Inspection: normal respiratory effort and able to speak in complete sentences Auscultation: clear to auscultation bilaterally Cardio Jugular venous distension: no JVD Rate: regular rate Rhythm: regular rhythm Heart sounds: S1 normal heart sound present and S2 normal heart sound present Bruits: no abdominal aortic bruits, no carotid bruits, no femoral bruits and no renal bruits Peripheral pulses: Peripheral pulses 2+ throughout GI Inspection: Yes normal to inspection Palpation (GI): No Abdominal aortic bruit present Skin General skin exam: no rashes or lesions noted Wounds: no wounds Hair: normal Neuro General: patient oriented x3 Cranial nerves: Yes Normal hearing present Cognition (Neuro): normal cognition Gait exam (Neuro): Normal gait present Motor exam (neuro): 5/5 motor strength present throughout Sensory Exam: No Sensory deficit (Neuro) Extrem Other: Right lower extremity: Tortuosity noted from just below the knee to just above the ankle, painful to palpation. Palpable DP pulses. Left upper thigh: Small tortuosity is noted on the medial aspect of the thigh. Slight peripheral edema noted at the ankle. CEAP: C - 3 E - primary A - superficial P - reflux General: Yes normal to inspection, Yes full ROM, Yes capillary refill normal and Yes normal gait Assessment & Plan Assessment & Plan (1) Varicose veins of left lower extremity with inflammation: Code(s): I83.12 - Varicose veins of left lower extremity with inflammation Category: Medical Plan: Marv is presenting as a consult from his PCP for right lower extremity tortuosities, swelling, and pain. He was seen in our office in 2021 and had several procedures done on his left lower extremity due to venous insufficiency. He states that the right leg was noted to have some tortuosity is a couple of years ago; however, he did not have them fixed at the time. He is now concerned with the increased pain of the right lower extremity. In short, the patient has evidence of venous insufficiency. I have discussed the pathophysiology with the patient. In addition I have provided informational material regarding venous disease to the patient. We have discussed conservative measures including compression, elevation, and exercise. Patient has tried compression stockings in the past and does not like them and we will not use them at this point. I have taken the liberty of ordering venous insufficiency testing with the patient; the patient has had this before but it is a couple of years old and we will re-evaluate with new imaging. They will follow up with me after testing. The patient had an opportunity to ask questions regarding the treatment plan. All questions were answered. No major barriers to understanding were identified. The patient expressed understanding and agreement with the above treatment plan. The patient is aware they should contact our office by phone for worsening of the current condition or the appearance of new symptoms. Thank you for allowing me to participate in the vascular care of this patient. If you have any questions or concerns regarding the treatment for the above condition please do not hesitate to contact me. The office telephone contact is [phone]. This note is constructed using voice recognition software. While every effort has been made to ensure accuracy, change management lead errors may have been included. Thank you for allowing me to participate in the care of your patient. Yours sincerely, NISH Corrales Coding Level of Care Code Established Pt Est Pt Level 4 (20887) Patient Type Established Diagnoses Varicose veins of left lower extremity with inflammation I83.12
[2023-12-16 13:33] VITALS: BMI 35.7
== END 2023-12-16 13:49 | disposition home or self-care (01) ==
LOC: HO.HVS 13:13
PROVIDERS: PCP Nurse Practitioner Family; Visit Provider Physician Assistant Surgical
DX: I83.12 Varicose veins of left lower extremity with inflammation (principal)
CPT/HCPCS: 99214

== ENCOUNTER → 2023-12-16 13:12 | Outpatient (BNVA) | payer MEDICARE, SELFPAY | PROVIDERS: PCP Nurse Practitioner Family; Visit Provider Physician Assistant Surgical | DX: I83.11 Varicose veins of right lower extremity with inflammation (principal); I83.12 Varicose veins of left lower extremity with inflammation | CPT/HCPCS: 99212 ==

== ENCOUNTER 2024-01-14 08:06 | Outpatient (REF) | payer MEDICARE, SELFPAY ==
--- OUTSIDE RECORDS SUMMARY | 2024-01-20 16:22 | XMS_ITS | Encounter Summary ---
Author Name [facility] Organization [facility] [place] Address [address] [place] [id number] Care Team Providers Care Back Order Clerk Name Role Phone BLAISE MARTINEZ Primary Care Provider Unavail able Insurance Providers: All historical and current Section Date Range: From patient's date of to the date document was created. This section includes the names of all active insurance providers for the patient. Insurance Provider Type of Coverage Plan Name Start of Policy Coverage End of Policy Coverage Group Number Member ID Insurance Provider's Telephone Number Policy Greco's Name Patient's Relationship to Policy Greco [place] SUPPLEMEN ROHITH MEDEX 2 Aug 10, 2018 [id number] Cresencio GAYTAN PATIENT [place] 2 Aug 10, 2018 [id number] Cresencio GAYTAN PATIENT [place] MED[place] SUPPLEMEN ROHITH MEDEX 2 Aug 10, 2018 [id number] [phone] Cresencio GAYTAN PATIENT [place] SUPPLEMEN R[place] MEDEX 2 Aug 10, 2018 [id number] Cresencio GAYTAN PATIENT [place] PREFERRED PROVIDER ORGANIZAT ION (PPO) [facility] Apr 10, 2009 [id number] Cresencio GAYTAN PATIENT CIGNA POINT OF SERVICE [facility] Aug 10, 2016 [id number] [phone] Cresencio GAYTAN PATIENT CIGNA BEHAVIORAL HEALTH MENTAL HEALTH [facility] Aug 10, 2016 [id number] Cresencio GAYTAN PATIENT CIGNA PHARMACY PRESCRIPT ION [facility] Aug 10, 2016 [id number] [id number] Cresencio GAYTAN PATIENT [employer] ([id number]) PRESCRIPT ION [facility] June 21, 2010 [id number] Cresencio GAYTAN PATIENT MEDICARE (WNR) MEDICARE (M) PART B Aug 10, 2018 PART B [id number] Cresencio GAYTAN PATIENT MEDICARE (WNR) MEDICARE (M) PART A Aug 10, 2018 PART A [id number] [phone] Cresencio GAYTAN PATIENT MEDICARE (WNR) MEDICARE (M) PART A Aug 10, 2018 PART A [id number] Cresencio GAYTAN PATIENT MEDICARE (WNR) MEDICARE (M) PART B Aug 10, 2018 PART B [id number] Cresencio GAYTAN PATIENT Selected Encounter This section includes the information on record at [place] for the Encounter. Date/Time Encounter Type Encounter Description Reason Pro vider Source Jan 28, 2023 03:00 PM Outpatient Encounter PRIMARY CARE/MEDICINE IHE Encounter Template Text not used by [place] Plan of Treatment: Future Appointments (+ 6 months) and Future Tests (+/- 45 days) The Plan of Treatment section includes future care activities for the patient from all [place] treatmentfacilities. This section includes future appointments and future orders which are active, pending or scheduled. Future Appointments This section includes appointments that were scheduled to occur 6 months from the date of the Encounter, up to a maximum of 20 appointments. The data comes from all [place] treatment facilities. Appointment Date/Time Appointment Type Appointme nt Facility Name Apr 17, 2023 07:30 AM AMBULATORY [place]ICINE [place] [facility] [place] [facility] Apr 25, 2023 08:30 AM AMBULATORY - NONE [facility] [place] [facility] Apr 29, 2023 10:00 AM AMBULATORY - [place]ICINE [place] [facility] [place] [facility] Social History: Smoking Status (Most current) and Tobacco Use (All prior to encounter date) This section includes the most current, and the historical, smoking and tobacco- related health factors from the [place] facility where the Encounter took place. Current Smoking Status This section includes the most current smoking, or tobacco-related health factor, from the [place] facility where the Encounter took place. Date/Time Current Smoking Status Comment [facility] Jul 19, 2021 10:25 AM VA-TOBACCO USER EVERY DAY [facility] [place] [facility] Tobacco Use History This section includes a history of the smoking, or tobacco-related health factors, that were collected on or before the date of the Encounter. The data comes from the [place] facility where the Encounter took place. Date/Time Smoking Status/Tobac co Use Comment Facility Jul 19, 2021 10:25 AM VA-TOBACCO USE 30 YEARS OR MORE [facility] [place] [facility] Jul 19, 2021 10:25 AM VA-TOBACCO USE ADVICE [facility] [place] [facility] Jul 19, 2021 10:25 AM VA-TOBACCO USE COVER MARKER NO [facility] [place] [facility] Jul 19, 2021 10:25 AM VA-TOBACCO USE MED NO [facility] [place] [facility] Jul 19, 2021 10:25 AM VA-TOBACCO USER EVERY DAY [facility] [place] [facility] May 09, 2020 08:00 AM VA-TOBACCO FORMER USER [facility] [place] [facility] May 09, 2020 08:00 AM VA-TOBACCO QUIT < 1 YEAR [facility] [place] [facility] Mar 23, 2019 09:01 AM VA-TOBACCO FORMER USER [facility] [place] [facility] Mar 23, 2019 09:01 AM VA-TOBACCO QUIT 5 TO < 15 YRS [facility] [place] [facility] Jan 19, 2018 08:24 AM VA-TOBACCO NEVER USED [facility] [place] [facility] Jan 17, 2017 08:30 AM QUIT TOBACCO USE > 7 YEARS AGO [facility] [place] [facility] Jan 17, 2017 08:30 AM QUIT TOBACCO USE 1-7 YEARS AGO [facility] [place] [facility] Apr 19, 2016 01:06 PM QUIT TOBACCO USE 1-7 YEARS AGO [facility] [place] [facility] May 05, 2014 08:45 AM QUIT TOBACCO USE 1-7 YEARS AGO [facility] [place] [facility] Apr 08, 2013 08:46 AM QUIT TOBACCO USE 1-7 YEARS AGO . [facility] [place] [facility] Jan 10, 2012 08:23 AM CURRENT SMOKER [facility] [place] [facility] Jan 10, 2012 08:23 AM V1-PT DECLINES REF TO TOBACCO CESS PRGM [facility] [place] [facility] Jan 10, 2012 08:23 AM V1-PT DECLINES TOBACCO CESSATION MEDS [facility] [place] [facility] Jan 10, 2012 08:23 AM V1-PT THINKING ABOUT QUIT TOBACCO USE [facility] [place] [facility] Apr 25, 2011 08:23 AM V1-PT DECLINES REF TO TOBACCO CESS PRGM [facility] [place] [facility] Apr 25, 2011 08:23 AM V1-PT DECLINES TOBACCO CESSATION MEDS [facility] [place] [facility] Apr 25, 2011 08:23 AM V1-PT THINKING ABOUT QUIT TOBACCO USE [facility] [place] [facility] Aug 16, 2010 09:12 AM CURRENT SMOKER 1 pk per wk [facility] [place] [facility] Aug 16, 2010 09:12 AM V1-PT DECLINES REF TO TOBACCO CESS PRGM [facility] [place] [facility] Aug 16, 2010 09:12 AM V1-PT DECLINES TOBACCO CESSATION MEDS [facility] [place] [facility] Aug 16, 2010 09:12 AM V1-PT NOT INTERESTED IN QUIT TOBACCO USE [facility] [place] [facility] Dec 28, 2009 08:21 AM V1-PT DECLINES REF TO TOBACCO CESS PRGM [facility] [place] [facility] Dec 28, 2009 08:21 AM V1-PT THINKING ABOUT QUIT TOBACCO USE [facility] [place] [facility] Mar 20, 2009 10:53 AM V1-PT DECLINES REF TO TOBACCO CESS PRGM [facility] Mar 20, 2009 10:53 AM V1-PT DECLINES TOBACCO CESSATION MEDS [facility] Mar 20, 2009 10:53 AM V1-PT NOT INTERESTED IN QUIT TOBACCO USE [facility] Mar 13, 2009 09:37 AM CURRENT SMOKER just when he is drinking. He can't stand it otherwise. [facility] Advance Directives: All historical and current Section Date Range: From patient's date of to the date document was created. This section includes ALL of a patient's completed or amended [place] Advance and Rescinded Directives. The entries below indicate that a directive exists for the patient, but an actual copy is not included with this document. The data comes from all [place] facilities. Date Advance Directives Provider Source Jun 08, 2014 ADVANCE DIRECTIVE TARYN VILLATORO [facility] Encounter Notes: All associated encounter notes This section contains the clinical notes associated to the Encounter. Date/Time Encounter Note(s) Provider Source Jan 28, 2023 03:24 PM CLERICAL NOTE: LOCAL TITLE: APPOINTMENT NO SHOW STANDARD TITLE: CLERICAL NOTE DATE OF NOTE: JAN 28, 2023@15:24 ENTRY DATE: JAN 28, 2023@15:24:46 AUTHOR: THO BUTTS EXP COSIGNER: URGENCY: STATUS: COMPLETED Patient Name: SOFIA GAYTAN Patient SSN: [id number] Date and time of Appointment No show : 01/28/23 15:00 PATIENT PHONE - PHONE NUMBER [CELLULAR] - [phone] Patient's medical record was reviewed. Follow-up actions were determined and initiated: Please check/complete as applies: [ ]Telephoned Directly [ ]Re-scheduled for next available appt [X]Sent a N0-show letter ( must call for appointment) [ ]Other (Emergent/Overbook, etc.): Additional Comments: Future Clinic Visits 04/24/2023 07:30 CWM/NO/OPTOMETRY/MIRAND A 04/25/2023 08:30 CWM/NO/DENTAL/RDH2 AM /es/ THO BUTTS AMSA Signed: 01/28/2023 15:24 [facility]
--- OUTSIDE RECORDS SUMMARY | 2024-01-20 16:22 | XMS_ITS | Encounter Summary ---
Author Name [facility] [place] Address [address] [place] [address] Care Team Providers Care Bladder Cleaner Name Role Phone BLAISE MARTINEZ Primary Care [...] Name Patient's Relationship to Policy [place] MED[place] SUPPLEMEN ROHITH MEDEX 2 Aug 10, 2018 [id number] [phone] Cresencio GAYTAN PATIENT [place] SUPPLEMEN ROHITH MEDEX 2 Aug 10, 2018 [id number] Cresencio GAYTAN PATIENT [place] SUPPLEMEN ROHITH MEDEX 2 Aug 10, 2018 [id number] Cresencio GAYTAN PATIENT [place] MED[place] SUPPLEMEN ROHITH MEDEX 2 Aug 10, 2018 [id number] Cresencio GAYTAN PATIENT [place] PREFERRED PROVIDER ORGANIZAT ION (PPO) [facility] Apr 10, 2009 [id number] [phone] Cresencio GAYTAN PATIENT CIGNA POINT OF SERVICE [facility] Aug 10, 2016 [id number] Cresencio GAYTAN PATIENT CIGNA BEHAVIORAL HEALTH [facility]AL [facility] Aug 10, 2016 [id number] Cresencio GAYTAN PATIENT CIGNA PHARMACY PRESCRIPT ION [facility] Aug 10, 2016 [id number] Cresencio GAYTAN PATIENT EXPRESS SCRIPTS ([id number]) PRESCRIPT ION BCBSM A June 21, 2010 MASA [id number] Cresencio GAYTAN PATIENT MEDICARE (WNR) MEDICARE (M) PART B Aug 10, 2018 PART B [id number] Cresencio GAYTAN PATIENT MEDICARE (WNR) MEDICARE (M) PART A Aug 10, 2018 PART A [id number] Cresencio GAYTAN PATIENT MEDICARE (WNR) MEDICARE (M) PART A Aug 10, 2018 PART A [id number] [phone] Cresencio GAYTAN PATIENT MEDICARE (WNR) MEDICARE (M) PART B Aug 10, 2018 PART B [id number] [phone] Cresencio GAYTAN PATIENT Selected Encounter This section includes the information on record at [place] for the [place]counter. Date/Time Encounter Type Encounter Description Reason Pro vider Source Mar 14, 2023 08:49 AM Outpatient Encounter OPTOMETRY IHE Encounter Template Text not used by [place] Plan of Treatment: Future Appointments (+ 6 months) and Future Tests (+/- 45 days) The Plan of Treatment section includes future care activities for the patient from all [place] treatmentfacilities. This section includes future appointments and future orders which are active, pending or scheduled. Future Appointments This section includes appointments that were scheduled to occur 6 months from the date of the Encounter, up to a maximum of 20 appointments. The data comes from all [place] treatment facilities. Appointment Date/Time Appointment Type Appointme nt Facility Name Apr 17, 2023 07:30 AM AM[place]ULATORY [place]ICINE [place] [facility] [place] [facility] Apr 25, 2023 08:30 AM AMBULATORY - NONE [place] [facility] [place] [facility] Apr 29, 2023 10:00 AM AM[place]ULATORY - [place]ICINE [place] [facility] [place] [facility] Social History: Smoking Status (Most current) and Tobacco Use (All prior to encounter date) This section includes the most current, and the historical, smoking and tobacco- related health factors from the [place] facility where the Encounter took place. Current Smoking Status This section includes the most current smoking, or tobacco-related health factor, from the [place] facility where the Encounter took place. Date/Time Current Smoking Status Comment Facil it Jul 19, 2021 10:25 AM VA-TOBACCO USER EVERY DAY [place] [facility] [place] [facility] Tobacco Use History This section includes a history of the smoking, or tobacco-related health factors, that were collected on or before the date of the Encounter. The data comes from the [place] facility where the Encounter took place. Date/Time Smoking Status/Tobac co Use Comment Facility Jul 19, 2021 10:25 AM VA-TOBACCO USE 30 YEARS OR MORE [place] [facility] [place] [facility] Jul 19, 2021 10:25 AM VA-TOBACCO USE ADVICE [place] [facility] [place] [facility] Jul 19, 2021 10:25 AM VA-TOBACCO USE GATE KEEPER NO [facility] [place] [facility] Jul 19, 2021 10:25 AM VA-TOBACCO USE MED NO [place] [facility] [place] [facility] Jul 19, 2021 10:25 AM VA-TOBACCO USER EVERY DAY [facility] [place] [facility] May 09, 2020 08:00 AM VA-TOBACCO FORMER USER [facility] [place] [facility] May 09, 2020 08:00 AM VA-TOBACCO QUIT < 1 YEAR [facility] [place] [facility] Mar 23, 2019 09:01 AM VA-TOBACCO FORMER USER [facility] [place] [facility] Mar 23, 2019 09:01 AM VA-TOBACCO QUIT 5 TO < 15 YRS [facility] [place] [facility] Jan 19, 2018 08:24 AM VA-TOBACCO NEVER USED [place] [facility] [place] [facility] Jan 17, 2017 08:30 AM QUIT TOBACCO USE > 7 YEARS AGO [facility] [place] [facility] Jan 17, 2017 08:30 AM QUIT TOBACCO USE 1-7 YEARS AGO [facility] [place] [facility] Apr 19, 2016 01:06 PM QUIT TOBACCO USE 1-7 YEARS AGO [facility] [place] [facility] May 05, 2014 08:45 AM QUIT TOBACCO USE 1-7 YEARS AGO [facility] [place] [facility] Apr 08, 2013 08:46 AM QUIT TOBACCO USE 1-7 YEARS AGO . [facility] [place] [facility] Jan 10, 2012 08:23 AM CURRENT SMOKER [facility] [place] [facility] Jan 10, 2012 08:23 AM V1-PT DECLINES REF TO TOBACCO CESS PRGM [facility] [place] [facility] Jan 10, 2012 08:23 AM V1-PT DECLINES TOBACCO CESSATION MEDS [facility] [place] [facility] Jan 10, 2012 08:23 AM V1-PT THINKING ABOUT QUIT TOBACCO USE [facility] [facility] Apr 25, 2011 08:23 AM V1-PT DECLINES REF TO TOBACCO CESS PRGM [facility] [place] [facility] Apr 25, 2011 08:23 AM V1-PT DECLINES TOBACCO CESSATION MEDS [facility] [place] [facility] Apr 25, 2011 08:23 AM V1-PT THINKING ABOUT QUIT TOBACCO USE [facility] [place] [facility] Aug 16, 2010 09:12 AM CURRENT SMOKER 1 pk per wk [place] [facility] [place] [facility] Aug 16, 2010 09:12 AM V1-PT DECLINES REF TO TOBACCO CESS PRGM [facility] [place] [facility] Aug 16, 2010 09:12 AM V1-PT DECLINES TOBACCO CESSATION MEDS [place] [facility] [place] [facility] Aug 16, 2010 09:12 AM V1-PT NOT INTERESTED IN QUIT TOBACCO USE [facility] [place] [facility] Dec 28, 2009 08:21 AM V1-PT DECLINES REF TO TOBACCO CESS PRGM [place] [facility] [place] [facility] Dec 28, 2009 08:21 AM V1-PT THINKING ABOUT QUIT TOBACCO USE [facility] [place] [facility] Mar 20, 2009 10:53 AM V1-PT DECLINES REF TO TOBACCO CESS PRGM [facility] Mar 20, 2009 10:53 AM V1-PT DECLINES TOBACCO CESSATION MEDS [facility] Mar 20, 2009 10:53 AM V1-PT NOT INTERESTED IN QUIT TOBACCO USE [facility] Mar 13, 2009 09:37 AM CURRENT SMOKER just when he is drinking. He can't stand it otherwise. [facility] Advance Directives: All historical and current Section Date Range: From patient's date of to the date document was created. This section includes ALL of a patient's completed or amended [place] Advance and Rescinded Directives. The entries below indicate that a directive exists for the patient, but an actual copy is not included with this document. The data comes from all [place] facilities. Date Advance Directives Provider Source Jun 08, 2014 ADVANCE DIRECTIVE TARYN VILLATORO [facility] Encounter Notes: All associated encounter notes This section contains the clinical notes associated to the Encounter. Date/Time Encounter Note(s) Provider Source Mar 14, 2023 08:49 AM TELEPHONE ENCOUNTE R NOTE: LOCAL TITLE: TELEPHONE NOTE/SPECIALTY CLINIC STANDARD TITLE: TELEPHONE ENCOUNTER NOTE DATE OF NOTE: MAR 14, 2023@08:49 ENTRY DATE: MAR 14, 2023@08:49:27 AUTHOR: CHAN WILLIS EXP COSIGNER: URGENCY: STATUS: COMPLETED Called and left message on voicemail. Patients appointment with optometry on 04/24/2023 Needs to be rescheduled with a PID of 04/24/2023 Letter mailed [phone] Ext: [phone] /samir/ CHAN WILLIS ADVANCED TOE SEWER Signed: 03/14/2023 08:51 CHAN WILLIS [facility]
--- OUTSIDE RECORDS SUMMARY | 2024-01-20 16:22 | XMS_ITS | Encounter Summary ---
Author Name [facility] [place] Address [address] [place] [id number] Care Team Providers Care Set Up Technician Name Role Phone BLAISE MARTINEZ Primary Care [...] Name Patient's Relationship to Policy Greco [place] SUPPLEMEN ROHITH MEDEX 2 Aug 10, 2018 [id number] Cresencio GAYTAN PATIENT [place] SUPPLEMEN ROHITH MEDEX 2 Aug 10, 2018 [id number] [phone] Cresencio GAYTAN PATIENT [place] SUPPLEMEN ROHITH MEDEX 2 Aug 10, 2018 [id number] [phone] Cresencio GAYTAN PATIENT [place] MEDICARE SUPPLEMEN ROHITH MEDEX 2 Aug 10, 2018 [id number] Cresencio GAYTAN PATIENT [place] PREFERRED PROVIDER ORGANIZAT ION (PPO) [facility] Apr 10, 2009 [id number] [phone] Cresencio GAYTAN PATIENT CIGNA POINT OF SERVICE [facility] Aug 10, 2016 [id number] Cresencio GAYTAN PATIENT CIGNA BEHAVIORAL HEALTH MENTAL HEALTH [facility] Aug 10, 2016 [id number] Cresencio GAYTAN PATIENT CIGNA PHARMACY PRESCRIPT ION [facility] Aug 10, 2016 [id number] Cresencio GAYTAN PATIENT [employer] S[employer]IP[employer] ([id number]) PRESCRIPT ION [facility] A June 21, 2010 MASA [id number] Cresencio GAYTAN PATIENT MEDICARE (WNR) MEDICARE (M) PART B Aug 10, 2018 PART B [id number] [phone] Cresencio GAYTAN PATIENT MEDICARE (WNR) MEDICARE (M) PART A Aug 10, 2018 PART A [id number] Cresencio GAYTAN PATIENT MEDICARE (WNR) MEDICARE (M) PART A Aug 10, 2018 PART A [id number] Cresencio GAYTAN PATIENT MEDICARE (WNR) MEDICARE (M) PART B Aug 10, 2018 PART B [id number] [phone] Cresencio GAYTAN PATIENT Selected Encounter This section includes the information on record at [place] for the Encounter. Date/Time Encounter Type Encounter Description Reason Pro vider Source Apr 03, 2023 10:40 AM Outpatient Encounter OPTOMETRY IHE Encounter Template Text not used by [place] Plan of Treatment: Future Appointments (+ 6 months) and Future Tests (+/- 45 days) The Plan of Treatment section includes future care activities for the patient from all [place] treatmentfacilities. This section includes future appointments and future orders which are active, pending or scheduled. Future Appointments This section includes appointments that were scheduled to occur 6 months from the date of the Encounter, up to a maximum of 20 appointments. The data comes from all [place] treatment facilities. Appointment Date/Time Appointment Type Appointme nt Facility Name Apr 17, 2023 07:30 AM AMBULATORY [place]ICINE [place] [facility] [place] [facility] Apr 25, 2023 08:30 AM [facility] Apr 29, 2023 10:00 AM [facility]ULAT[facility] - [facility] Lab Results: +/- 30 days of the encounter This section includes the Chemistry and Hematology Lab Results on record with [place] for the patient. Radiology Reports and Pathology Reports are provided separately, in subsequent sections. Lab Results This section contains the Chemistry/Hematology Results that were resulted 30 days before or 30 daysafter the date of the Encounter. Date/Time Source Result Type Result - Unit Interpretation Reference Range Comment Apr 25, 2023 07:37 AM [facility] VITAMIN D (25-OH) Specimen Type: SERUM No comment entered. Ordering Provider: NAVA MARTINEZ Report Released Date/Time: Apr 16, 2023 11:34 AM Reporting Lab: [address] [address] Performing Lab: [address] [address] VITAMIN D (25-OH) 29 ng/mL 20-50 Apr 25, 2023 07:37 AM [facility] BASIC METABOLIC PANEL (fasting) Specimen Type: SERUM No comment entered. Ordering Provider: NAVA MARTINEZ Report Released Date/Time: Apr 16, 2023 11:34 AM Reporting Lab: [address] [address] Performing Lab: [address] [address] UREA NITROGEN 16 mg/dL 7-25 GLUCOSE 99 mg/dL 65-100 SODIUM 140 mmol/L 135-145 POTASSIUM 4.5 mmol/L 3.5-5.0 CHLORIDE 103 mmol/L 100-110 CO2 27 meq/L 20-30 CREATININE, Serum 0.80 mg/dL 0.50-1.40 eGFR(CKD-EPI 2020) >90 mL/min >60 Apr 25, 2023 07:37 AM [facility] LIPID PANEL FASTING Specimen Type: SERUM No comment entered. Ordering Provider: NAVA MARTINEZ Report Released Date/Time: Apr 16, 2023 11:34 AM Reporting Lab: [facility] [address] [facility] [address] Performing Lab: [facility] [address] [address] CHOLESTEROL 138 mg/dL TRIGLYCERIDE 83 mg/dL 0-150 LDL calculated 68 mg/dL 0-129 CHOL/HDL 2.6 HDL CHOLESTEROL 53 mg/dL 40-60 Apr 25, 2023 07:37 AM [facility] LIVER FUNCTION Specimen Type: SERUM No comment entered. Ordering Provider: NAVA MARTINEZ Report Released Date/Time: Apr 16, 2023 11:34 AM Reporting Lab: [address] [address] Performing Lab: [address] [address] PROTEIN,TOTAL 7.3 g/dL 6.0-8.3 ALBUMIN 4.1 g/dL 3.5-5.0 ALKALINE PHOSPHATASE 75 U/L 40-150 AST 21 U/L 5-34 ALT 25 U/L BILIRUBIN, TOTAL 0.3 mg/dL 0.2-1.2 Apr 25, 2023 07:37 AM [facility] CBC AND DIFF (AUTO) Specimen Type: BLOOD No comment entered. Ordering Provider: NAVA MARTINEZ Report Released Date/Time: Apr 16, 2023 11:34 AM Reporting Lab: [address] [address] Performing Lab: [address] [address] WBC 6.22 10*3/uL 4.50-11.00 RBC 4.24 10*6/uL 4.23-5.66 HGB 13.2 g/dL 12.8-17 HCT 38.6 L 39.2-50.4 MCV 91.0 fL 82-99 MCHC 34.2 g/dL 30.8-35.1 PLT 228 10*3/uL 140-360 RDW-CV 13.2 12.0-16.0 Lee, Abs 0.62 10*3/uL 0.30-1.10 MCH 31.1 pg 26.2-32.6 Neut % 61.4 43.7-75.8 Lymph % 24.1 14.0-42.3 Lee % 10.0 5.1-13.7 Eos % 3.5 0.4-6.8 Baso % 0.8 0.1-2.0 Neut, Abs 3.82 10*3/uL 2.20-7.60 Lymph, Abs 1.50 10*3/uL 1.00-3.20 Eos, Abs 0.22 10*3/uL 0.03-0.44 Baso, Abs 0.05 10*3/uL 0.01-0.13 Immature Gran % 0.2 0.0-0.7 Immature Gran, Abs 0.01 10*3/uL 0.00-0.06 Social History: Smoking Status (Most current) and Tobacco Use (All prior to encounter date) This section includes the most current, and the historical, smoking and tobacco- related health factors from the [place] facility where the Encounter took place. Current Smoking Status This section includes the most current smoking, or tobacco-related health factor, from the [place] facility where the Encounter took place. Date/Time Current Smoking Status Comment [facility] Jul 19, 2021 10:25 AM VA-TOBACCO USER EVERY DAY [place] [facility] [place] [facility] Tobacco Use History This section includes a history of the smoking, or tobacco-related health factors, that were collected on or before the date of the Encounter. The data comes from the [place] facility where the Encounter took place. 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 [facility] [place] [facility] Jul 19, 2021 10:25 AM VA-TOBACCO USE MED NO [place] [facility] [place] [facility] Jul 19, 2021 10:25 AM VA-TOBACCO USER EVERY DAY [facility] [place] [facility] May 09, 2020 08:00 AM VA-TOBACCO FORMER USER [place] [facility] [place] [facility] May 09, 2020 08:00 AM VA-TOBACCO QUIT < 1 YEAR [place] [facility] [place] [facility] Mar 23, 2019 09:01 AM VA-TOBACCO FORMER USER [place] [facility] [place] [facility] Mar 23, 2019 09:01 AM VA-TOBACCO QUIT 5 TO < 15 YRS [place] [facility] [place] [facility] Jan 19, 2018 08:24 AM VA-TOBACCO NEVER USED [place] [facility] [place] [facility] Jan 17, 2017 08:30 AM QUIT TOBACCO USE > 7 YEARS AGO [facility] [place] [facility] Jan 17, 2017 08:30 AM QUIT TOBACCO USE 1-7 YEARS AGO [place] [facility] [place] [facility] Apr 19, 2016 01:06 PM QUIT TOBACCO USE 1-7 YEARS AGO [place] [facility] [place] [facility] May 05, 2014 08:45 AM QUIT TOBACCO USE 1-7 YEARS AGO [place] [facility] [place] [facility] Apr 08, 2013 08:46 AM QUIT TOBACCO USE 1-7 YEARS AGO . [place] [facility] [place] [facility] Jan 10, 2012 08:23 AM CURRENT SMOKER [facility] [place] [facility] Jan 10, 2012 08:23 AM V1-PT DECLINES REF TO TOBACCO CESS PRGM [place] [facility] [place] [facility] Jan 10, 2012 08:23 AM V1-PT DECLINES TOBACCO CESSATION MEDS [facility] [place] [facility] Jan 10, 2012 08:23 AM V1-PT THINKING ABOUT QUIT TOBACCO USE [facility] [place] [facility] Apr 25, 2011 08:23 AM V1-PT DECLINES REF TO TOBACCO CESS PRGM [place] [facility] [place] [facility] Apr 25, 2011 08:23 AM V1-PT DECLINES TOBACCO CESSATION MEDS [facility] [place] [facility] Apr 25, 2011 08:23 AM V1-PT THINKING ABOUT QUIT TOBACCO USE [place] [facility] [place] [facility] Aug 16, 2010 09:12 AM CURRENT SMOKER 1 pk per wk [facility] [place] [facility] Aug 16, 2010 09:12 AM V1-PT DECLINES REF TO TOBACCO CESS PRGM [facility] Aug 16, 2010 09:12 AM V1-PT DECLINES TOBACCO CESSATION MEDS [facility] Aug 16, 2010 09:12 AM V1-PT NOT INTERESTED IN QUIT TOBACCO USE [facility] Dec 28, 2009 08:21 AM V1-PT DECLINES REF TO TOBACCO CESS PRGM [facility] Dec 28, 2009 08:21 AM V1-PT THINKING ABOUT QUIT TOBACCO USE [facility] Mar 20, 2009 10:53 AM V1-PT DECLINES REF TO TOBACCO CESS PRGM [facility] Mar 20, 2009 10:53 AM V1-PT DECLINES TOBACCO CESSATION MEDS [facility] Mar 20, 2009 10:53 AM V1-PT NOT INTERESTED IN QUIT TOBACCO USE [facility] Mar 13, 2009 09:37 AM CURRENT SMOKER just when he is drinking. He can't stand it otherwise. [facility] Advance Directives: All historical and current Section Date Range: From patient's date of to the date document was created. This section includes ALL of a patient's completed or amended [place] Advance and Rescinded Directives. The entries below indicate that a directive exists for the patient, but an actual copy is not included with this document. The data comes from all [place] facilities. Date Advance Directives Provider Source Jun 08, 2014 ADVANCE DIRECTIVE TARYN VILLATORO [facility] Encounter Notes: All associated encounter notes This section contains the clinical notes associated to the Encounter. Date/Time Encounter Note(s) Provider Source Apr 03, 2023 10:40 AM OPTOMETRY NOTE: LOCAL TITLE: OPTOMETRY NOTE STANDARD TITLE: OPTOMETRY NOTE DATE OF NOTE: APR 03, 2023@10:40 ENTRY DATE: APR 03, 2023@10:41:02 AUTHOR: YELITZA LIM COSIGNER: URGENCY: STATUS: COMPLETED Received one pair of glasses requesting screw. Glasses are in very rough shape. Replaced missing eyewire screw and mailed per request. /samir/ YELITZA LIM PROCESSING CLERK Signed: 04/03/2023 10:42 Y[facility]ITZA [facility]
--- OUTSIDE RECORDS SUMMARY | 2024-01-20 16:22 | XMS_ITS | Continuity of Care Document ---
Author Name [facility] Organization [facility] Care Team Providers Care Compliance Spec Name Role Phone [facility] Unavailable Unavailable Problems Combined list of problems from Department of Defense and Veterans Affairs facilities. It does not include entries that were removed or entered in error. Problem Status Onset Date Problem Type Date of Resolution Comments Source History of total hip arthroplasty Active 016 Condition Apr 19, 2016 Entered By: STORM MARTINEZ AM Comment: Left THR, [place] [facility] Abdominal aortic aneurysm 3.0 to 5.5 centimeters in male Active Condition [facility] AF- Atrial Fibrillation (SCT [id number]) Active Condition [facility] Alcohol Dependence Active Condition [facility] Counseling on Substance Use and Abuse (ICD-9-CM V65.42) Active Condition [facility] Exposure to potentially hazardous substance ([facility] [[email or web address]] [id number]) Active Condition May 20 4 Entered By: SHANTE RAPP Comment: Entered automatically through [facility] Problem List documentation program [facility] Family history of colorectal cancer Active Condition [facility] Gastroesophageal Reflux Disorder * (ICD-9-CM 530.81) Active Condition [facility] Hand Injuries * (ICD-9-CM 959.4) Active Condition June 20 0 Entered By: MAYNOR GRIGSBY Comment: limitation of movement of right thumb [facility] Hearing loss * (ICD-9-CM 389.9) Active Condition [facility] Hernia, Ventral (ICD-9-CM 553.20) Active Condition [facility] Hypertension * (ICD-9-CM 401.9) Active Condition [facility] Obesity * (ICD-9-CM 278.00) [facility] PTSD Active Condition [facility] Sleep Apnea (ICD-9-CM 780.57/786.09) Active Condition [facility] Tinnitus * (ICD-9-CM 388.30) [facility] Urgency of urination (ICD-9-CM 788.63) [facility] Acute congestive heart failure Inactive Condition 09/06/2013 Sep 06, 2013 Entered By: STORM MARTINEZ AM Comment: one episode with onset of afib, since ablated. [facility] Diagnosis: ICD-10-CM Z77.29 Contact with and exposure to other hazardous substances [facility] Diagnosis: ICD-10-CM K03.6 Deposits [accretions] on teeth Active [facility] Diagnosis: ICD-10-CM Z46.0 Encounter for fit/adjst of spectacles and contact lenses Active [facility] Diagnosis: ICD-10-CM L71.8 Other rosacea Active [facility] Medications Combined list of outpatient medications from Department of Defense and Veterans Affairs facilities.Medications provided include 1) outpatient medications from the last 15 months, and 2) patient-reported medications. Medication Details Route Status Patient Instructions Prescription Expires Prescription Number Last Dispense Date Ordering Provider Order Date Order Qty Source AMOXICILLIN TRIHYDRATE 500MG CAP TAKE FOUR CAPSULES BY MOUTH ONE TIME TAKE 1 HOUR PRIOR TO DENTAL APPOINTM ENT ORAL 05/25/2023 [id number] SMITH ALVAREZ 2023 20 [facility] APIXABAN 5MG TAB TAKE ONE TABLET BY MOUTH TWICE DAILY ORAL 11/20/2023 [id number] BLAISE MARTINEZ 2022 180 [facility] CARBOXYMETH YLCELLULOSE NA 0.5% SOLN,OPH INSTILL 1 DROP INTO EACH EYE FOUR TIMES DAILY NEEDED FOR DRY EYE OPHTHA LMIC ACTIVE 04/17/2024 [id number] Cresencio ALAN ICHELE 2023 45 [facility] CARBOXYMETH YLCELLULOSE NA 0.5% SOLN,OPH INSTILL 1 DROP INTO EACH EYE FOUR TIMES DAILY NEEDED FOR DRY EYE OPHTHA LMIC DISCONT INUED 03/27/2023 [id number] Cresencio ALAN ICHCHU 2022 30 [facility] DRONEDARONE 400MG TAB TAKE ONE TABLET BY MOUTH TWICE DAILY ORAL ACTIVE 10/30/2024 [id number] BLAISE MARTINEZ 2023 180 [facility] DRONEDARONE 400MG TAB TAKE ONE TABLET BY MOUTH TWICE DAILY ORAL DISCONT INUED 10/21/2023 [id number] RA JAMES HENRIQUEZ 2022 180 [facility] FISH OIL CAP,ORAL TAKE BY MOUTH ORAL ACTIVE BLAISE MARTINEZ 2020 [facility] LISINOPRIL 10MG TAB TAKE ONE TABLET BY MOUTH ONCE DAILY TO CONTROL BLOOD PRESSURE ORAL ACTIVE 10/30/2024 [id number] 4 BLAISE MARTINEZ 2023 90 [facility] LISINOPRIL 10MG TAB TAKE ONE TABLET BY MOUTH ONCE DAILY TO CONTROL BLOOD PRESSURE ORAL DISCONT INUED 10/21/2023 [id number] RA JAMES HENRIQUEZ 2022 90 [facility] MULTIVITAMI NS W/MINERALS TAB TAKE ONE TABLET BY MOUTH EVERY DAY ORAL ACTIVE CANDY GRIGSBY O 2009 [facility] OMEPRAZOLE 20MG CAP,EC TAKE ONE CAPSULE BY MOUTH EVERY DAY ORAL ACTIVE 10/30/2024 [id number] BLAISE MARTINEZ 2023 90 [facility] OMEPRAZOLE 20MG CAP,EC TAKE ONE CAPSULE BY MOUTH EVERY DAY ORAL DISCONT INUED 10/21/2023 [id number] RA JAMES HENRIQUEZ 2022 90 [facility] ROSUVASTATI N CA 40MG TAB TAKE ONE-HALF TABLET BY MOUTH ONCE DAILY FOR CHOLESTE ROL ORAL ACTIVE 09/18/2024 [id number] BLAISE MARTINEZ 2023 45 [facility] ROSUVASTATI N TAB TAKE BY MOUTH ORAL ACTIVE [place] CARO 2020 [facility] VITAMIN D3 (CHOLECALCI FEROL) TAB TAKE BY MOUTH ORAL ACTIVE [place] CARO 2020 [facility] Allergies, Adverse Reactions, Alerts Combined list of allergies from Department of Defense and Veterans Affairs facilities. It does not include entries that were removed or entered in error. Substance Category Reaction Severity Reaction type Status Date Reported Comments Source CODEINE Propensity to adverse reactions to drug (finding) active 09/25/2010 [facility] MORPHINE Propensity to adverse reactions to drug (finding) active 09/25/2010 [facility] Immunizations Combined list of available immunizations from the Department of Defense and Veterans Affairs facilities. Immunization Series Date Given Administered By Site Reaction Lot Number CVX Code Drug Archeologist Status Comments Source INFLUENZA, UNSPECIFIED FORMULATION 2022 88 complet ed [facility] PNEUMOCOCCAL CONJUGATE PCV20, POLYSACCHARID E [id number] CONJUGATE, ADJUVANT, PF 2021 216 complet ed [facility] INFLUENZA VACCINE, QUADRIVALENT, ADJUVANTED 2020 205 complet ed [facility] TDAP 2020 115 complet ed [facility] HEP B, ADULT 3 2020 43 complet ed [facility] ZOSTER RECOMBINANT 2 2020 187 complet ed [facility] COVID-19 (MODERNA), MRNA, LNP-S, PF, 100 MCG/0.5 ML DOSE 2 2020 207 complet ed MOD; [id number]; 1 [facility] COVID-19 (MODERNA), MRNA, LNP-S, PF, 100 MCG/0.5 ML DOSE 1 2020 207 complet ed MOD; [id number]; 1 [facility] HEP A-HEP B 2 2019 NONE 104 complet ed [facility] ZOSTER RECOMBINANT 1 2019 187 complet ed [facility] HEP A-HEP B 1 2019 NONE 104 complet ed [facility] TD (ADULT), 2 LF TETANUS TOXOID, PRESERVATIVE FREE, ADSORBED 2019 09 complet ed Site: Right Deltoid [facility] INFLUENZA, SEASONAL, INJECTABLE 2019 141 complet ed Non Va PCP [facility] INFLUENZA, SEASONAL, INJECTABLE 2016 141 complet ed Site: Left Deltoid [facility] PNEUMOCOCCAL POLYSACCHARID E PPV23 2016 33 complet ed [facility] FLU,3 YRS (HISTORICAL) 2011 88 complet ed stated [facility] TD(ADULT) UNSPECIFIED FORMULATION 2002 139 complet ed via the water dept. [facility] TDAP 2002 115 complet ed via the water dept. [facility] Results Combined list of recent chemistry, hematology and other laboratory results from Department of Defense and Veterans Affairs, ranging from 15 months to all on record, depending upon the facility. Order Name Results Value Reference Range Date Interpretation Specimen Comments Source LIPID PANEL FASTING CHOLESTEROL [MASS/VOLUM E] IN SERUM OR PLASMA 138 mg/dL 04/24 Specimen Type: SERUM No comment entered. Ordering Provider: Bo MARTINEZ Report Released Date/Time: Apr 16, 2023 11:34 AM Reporting Lab: [facility] [place] [facility] [address] [facility] [address] Performing Lab: [facility] [place] [facility] [address] [facility] [address] [facility] LIPID PANEL FASTING TRIGLYCERID E [MASS/VOLUM E] IN SERUM OR PLASMA 83 mg/dL 0 - 150 04/24 Specimen Type: SERUM No comment entered. Ordering Provider: Bo MARTINEZ Report Released Date/Time: Apr 16, 2023 11:34 AM Reporting Lab: [facility] [place] [facility] [address] [facility] [address] Performing Lab: [facility] [place] [address] [address] [facility] [facility] LIPID PANEL FASTING CHOLESTEROL IN LDL [MASS/VOLUM E] IN SERUM OR PLASMA BY CALCULATION 68 mg/dL 0 - 129 04/24 Specimen Type: SERUM No comment entered. Ordering Provider: Bo MARTINEZ Report Released Date/Time: Apr 16, 2023 11:34 AM Reporting Lab: [facility] [place] [facility] [address] [facility] [address] Performing Lab: [facility] [place] [address] [address] [facility] LIPID PANEL FASTING CHOLESTEROL .TOTAL/CHOL ESTEROL IN HDL [MASS RATIO] IN SERUM OR PLASMA 2.6 04/24 Specimen Type: SERUM No comment entered. Ordering Provider: Bo MARTINEZ Report Released Date/Time: Apr 16, 2023 11:34 AM Reporting Lab: [facility] [place] [facility] [address] [facility] [address] Performing Lab: [facility] [place] [address] [address] [facility] [place] [facility] LIPID PANEL FASTING CHOLESTEROL IN HDL [MASS/VOLUM E] IN SERUM OR PLASMA 53 mg/dL 40 - 60 04/24 Specimen Type: SERUM No comment entered. Ordering Provider: Bo MARTINEZ Report Released Date/Time: Apr 16, 2023 11:34 AM Reporting Lab: [facility] [place] [facility] [address] [facility] [address] Performing Lab: [facility] [address] [facility] [address] [facility] LIVER FUNCTION PROTEIN [MASS/VOLUM E] IN SERUM OR PLASMA 7.3 g/dL 6.0 - 8.3 04/24 Specimen Type: SERUM No comment entered. Ordering Provider: Bo MARTINEZ Report Released Date/Time: Apr 16, 2023 11:34 AM Reporting Lab: [facility] [place] [address] [address] Performing Lab: [facility] [address] [address] [facility] LIVER FUNCTION ALBUMIN [MASS/VOLUM E] IN SERUM OR PLASMA 4.1 g/dL 3.5 - 5.0 04/24 Specimen Type: SERUM No comment entered. Ordering Provider: Bo MARTINEZ Report Released Date/Time: Apr 16, 2023 11:34 AM Reporting Lab: [facility] [place] [address] [address] Performing Lab: [facility] [place] [address] [address] [facility] LIVER FUNCTION ALKALINE PHOSPHATASE [ENZYMATIC ACTIVITY/VO LUME] IN SERUM OR PLASMA 75 U/L 40 - 150 04/24 Specimen Type: SERUM No comment entered. Ordering Provider: Bo MARTINEZ Report Released Date/Time: Apr 16, 2023 11:34 AM Reporting Lab: [facility] [place] [address] [address] Performing Lab: [facility] [address] [address] [facility] LIVER FUNCTION ASPARTATE AMINOTRANSF ERASE [ENZYMATIC ACTIVITY/VO LUME] IN SERUM OR PLASMA 21 U/L 5 - 34 04/24 Specimen Type: SERUM No comment entered. Ordering Provider: Bo MARTINEZ Report Released Date/Time: Apr 16, 2023 11:34 AM Reporting Lab: [facility] [place] [facility] [address] [facility] [address] Performing Lab: [facility] [place] [facility] [address] [facility] [address] [facility] [place] [facility] LIVER FUNCTION ALANINE AMINOTRANSF ERASE [ENZYMATIC ACTIVITY/VO LUME] IN SERUM OR PLASMA 25 U/L 04/24 Specimen Type: SERUM No comment entered. Ordering Provider: Bo MARTINEZ Report Released Date/Time: Apr 16, 2023 11:34 AM Reporting Lab: [facility] [place] [facility] [address] [facility] [address] Performing Lab: [facility] [place] [facility] [address] [facility] [address] [facility] [place] [facility] LIVER FUNCTION BILIRUBIN.T OTAL [MASS/VOLUM E] IN SERUM OR PLASMA 0.3 mg/dL 0.2 - 1.2 04/24 Specimen Type: SERUM No comment entered. Ordering Provider: Bo MARTINEZ Report Released Date/Time: Apr 16, 2023 11:34 AM Reporting Lab: [facility] [place] [facility] [address] [facility] [address] Performing Lab: [facility] [place] [facility] [address] [facility] [address] [facility] [place] [facility] BASIC METABOLIC PANEL (fasting) UREA NITROGEN [MASS/VOLUM E] IN SERUM OR PLASMA 16 mg/dL 7 - 25 04/24 Specimen Type: SERUM No comment entered. Ordering Provider: Bo MARTINEZ Report Released Date/Time: Apr 16, 2023 11:34 AM Reporting Lab: [facility] [place] [facility] [address] [facility] [address] Performing Lab: [facility] [place] [facility] [address] [facility] [address] [facility] [place] [facility] BASIC METABOLIC PANEL (fasting) GLUCOSE [MASS/VOLUM E] IN SERUM OR PLASMA 99 mg/dL 65 - 100 04/24 Specimen Type: SERUM No comment entered. Ordering Provider: Bo MARTINEZ Report Released Date/Time: Apr 16, 2023 11:34 AM Reporting Lab: [facility] [place] [facility] [address] [facility] [address] Performing Lab: [facility] [place] [facility] [address] [facility] [address] [facility] BASIC METABOLIC PANEL (fasting) SODIUM [MOLES/VOLU ME] IN SERUM OR PLASMA 140 mmol/L 135 - 145 04/24 Specimen Type: SERUM No comment entered. Ordering Provider: Bo MARTINEZ Report Released Date/Time: Apr 16, 2023 11:34 AM Reporting Lab: [facility] [place] [facility] [address] [facility] [address] Performing Lab: [facility] [address] [facility] [address] [facility] BASIC METABOLIC PANEL (fasting) POTASSIUM [MOLES/VOLU ME] IN SERUM OR PLASMA 4.5 mmol/L 3.5 - 5.0 04/24 Specimen Type: SERUM No comment entered. Ordering Provider: Bo MARTINEZ Report Released Date/Time: Apr 16, 2023 11:34 AM Reporting Lab: [facility] [place] [facility] [address] [facility] [address] Performing Lab: [facility] [place] [facility] [address] [facility] [address] [facility] BASIC METABOLIC PANEL (fasting) CHLORIDE [MOLES/VOLU ME] IN SERUM OR PLASMA 103 mmol/L 100 - 110 04/24 Specimen Type: SERUM No comment entered. Ordering Provider: Bo MARTINEZ Report Released Date/Time: Apr 16, 2023 11:34 AM Reporting Lab: [facility] [place] [facility] [address] [facility] [address] Performing Lab: [facility] [place] [facility] [address] [facility] [address] [facility] BASIC METABOLIC PANEL (fasting) CARBON DIOXIDE, TOTAL [MOLES/VOLU ME] IN SERUM OR PLASMA 27 meq/L 20 - 30 04/24 Specimen Type: SERUM No comment entered. Ordering Provider: Bo MARTINEZ Report Released Date/Time: Apr 16, 2023 11:34 AM Reporting Lab: [facility] [place] [facility] [address] [facility] [address] Performing Lab: [facility] [address] [address] [facility] [place] [facility] BASIC METABOLIC PANEL (fasting) CREATININE [MASS/VOLUM E] IN SERUM OR PLASMA 0.80 mg/dL 0.50 - 1.40 04/24 Specimen Type: SERUM No comment entered. Ordering Provider: Bo MARTINEZ Report Released Date/Time: Apr 16, 2023 11:34 AM Reporting Lab: [facility] [place] [facility] [address] [facility] [address] Performing Lab: [facility] [place] [facility] [address] [facility] [address] [facility] [place] [facility] BASIC METABOLIC PANEL (fasting) GLOMERULAR FILTRATION RATE/1.73 SQ M.PREDICTED [VOLUME RATE/AREA] IN SERUM, PLASMA OR BLOOD BY CREATININE- BASED FORMULA (CKD-EPI 2020) >90mL/ min 60 04/24 Specimen Type: SERUM No comment entered. Ordering Provider: Bo MARTINEZ Report Released Date/Time: Apr 16, 2023 11:34 AM Reporting Lab: [facility] [place] [address] [address] Performing Lab: [facility] [address] [facility] VITAMIN D (25-OH) 25-HYDROXYV ITAMIN D3 [MASS/VOLUM E] IN SERUM OR PLASMA 29 ng/mL 20 - 50 04/24 Specimen Type: SERUM No comment entered. Ordering Provider: Bo MARTINEZ Report Released Date/Time: Apr 16, 2023 11:34 AM Reporting Lab: [facility] [address] Performing Lab: [facility]ENTER[facility] [address] [facility] CBC AND DIFF (AUTO) LEUKOCYTES [#/VOLUME] IN BLOOD BY AUTOMATED COUNT 6.22 10*3/u L 4.50 - 11.00 04/24 Specimen Type: BLOOD No comment entered. Ordering Provider: Bo MARTINEZ Report Released Date/Time: Apr 16, 2023 11:34 AM Reporting Lab: [facility] [address] Performing Lab: [facility]ENTER[facility] [address] [facility] CBC AND DIFF (AUTO) ERYTHROCYTE S [#/VOLUME] IN BLOOD BY AUTOMATED COUNT 4.24 10*6/u L 4.23 - 5.66 04/24 Specimen Type: BLOOD No comment entered. Ordering Provider: Bo MARTINEZ Report Released Date/Time: Apr 16, 2023 11:34 AM Reporting Lab: [facility]ENTER[facility] [address] Performing Lab: [facility]ENTER[facility] [address] [facility] CBC AND DIFF (AUTO) HEMOGLOBIN [MASS/VOLUM E] IN BLOOD 13.2 g/dL 12.8 - 17 04/24 Specimen Type: BLOOD No comment entered. Ordering Provider: Bo MARTINEZ Report Released Date/Time: Apr 16, 2023 11:34 AM Reporting Lab: [facility] [place] [address] [facility] [address] Performing Lab: [facility] [place] [address] [facility] [address] [facility] CBC AND DIFF (AUTO) HEMATOCRIT [VOLUME FRACTION] OF BLOOD BY AUTOMATED COUNT 38.6 39.2 - 50.4 04/24 L Specimen Type: BLOOD No comment entered. Ordering Provider: Bo MARTINEZ Report Released Date/Time: Apr 16, 2023 11:34 AM Reporting Lab: [facility] [place] [address] [facility] [address] Performing Lab: [facility] [place] [facility] [address] [facility] [address] [facility] CBC AND DIFF (AUTO) MCV [ENTITIC VOLUME] BY AUTOMATED COUNT 91.0 fL 82 - 99 04/24 Specimen Type: BLOOD No comment entered. Ordering Provider: Bo MARTINEZ Report Released Date/Time: Apr 16, 2023 11:34 AM Reporting Lab: [facility] [place] [address] [facility] [address] Performing Lab: [facility] [place] [facility] [address] [facility] [address] [facility] CBC AND DIFF (AUTO) MCHC [MASS/VOLUM E] BY AUTOMATED COUNT 34.2 g/dL 30.8 - 35.1 04/24 Specimen Type: BLOOD No comment entered. Ordering Provider: Bo MARTINEZ Report Released Date/Time: Apr 16, 2023 11:34 AM Reporting Lab: [facility] [place] [address] [facility] [address] Performing Lab: [facility] [place] [address] [facility] [address] [facility] CBC AND DIFF (AUTO) PLATELETS [#/VOLUME] IN BLOOD BY AUTOMATED COUNT 228 10*3/u L 140 - 360 04/24 Specimen Type: BLOOD No comment entered. Ordering Provider: Bo MARTINEZ Report Released Date/Time: Apr 16, 2023 11:34 AM Reporting Lab: [facility] [place] [facility] [address] [facility] [address] Performing Lab: [facility] [place] [address] [address] [facility] CBC AND DIFF (AUTO) ERYTHROCYTE DISTRIBUTIO N WIDTH [RATIO] BY AUTOMATED COUNT 13.2 12.0 - 16.0 04/24 Specimen Type: BLOOD No comment entered. Ordering Provider: Bo MARTINEZ Report Released Date/Time: Apr 16, 2023 11:34 AM Reporting Lab: [facility] [place] [address] [address] Performing Lab: [facility] [place] [address] [address] [facility] CBC AND DIFF (AUTO) MONOCYTES [#/VOLUME] IN BLOOD BY AUTOMATED COUNT 0.62 10*3/u L 0.30 - 1.10 04/24 Specimen Type: BLOOD No comment entered. Ordering Provider: Bo MARTINEZ Report Released Date/Time: Apr 16, 2023 11:34 AM Reporting Lab: [facility] [place] [address] [address] Performing Lab: [facility] [place] [address] [address] [facility] CBC AND DIFF (AUTO) MCH [ENTITIC MASS] BY AUTOMATED COUNT 31.1 pg 26.2 - 32.6 04/24 Specimen Type: BLOOD No comment entered. Ordering Provider: Bo MARTINEZ Report Released Date/Time: Apr 16, 2023 11:34 AM Reporting Lab: [facility] [place] [address] [address] Performing Lab: [facility] [address] [facility] [address] [facility] CBC AND DIFF (AUTO) NEUTROPHILS /100 LEUKOCYTES IN BLOOD BY AUTOMATED COUNT 61.4 43.7 - 75.8 04/24 Specimen Type: BLOOD No comment entered. Ordering Provider: Bo MARTINEZ Report Released Date/Time: Apr 16, 2023 11:34 AM Reporting Lab: [facility] [address] [facility] [address] Performing Lab: [facility] [address] [facility] [address] [facility] CBC AND DIFF (AUTO) LYMPHOCYTES /100 LEUKOCYTES IN BLOOD BY AUTOMATED COUNT 24.1 14.0 - 42.3 04/24 Specimen Type: BLOOD No comment entered. Ordering Provider: Bo MARTINEZ Report Released Date/Time: Apr 16, 2023 11:34 AM Reporting Lab: [facility] [address] [facility] [address] Performing Lab: [facility] [address] [facility] [address] [facility] CBC AND DIFF (AUTO) MONOCYTES/1 00 LEUKOCYTES IN BLOOD BY AUTOMATED COUNT 10.0 5.1 - 13.7 04/24 Specimen Type: BLOOD No comment entered. Ordering Provider: Bo MARTINEZ Report Released Date/Time: Apr 16, 2023 11:34 AM Reporting Lab: [facility] [address] [facility] [address] Performing Lab: [facility] [address] [place] [address] [facility] CBC AND DIFF (AUTO) EOSINOPHILS /100 LEUKOCYTES IN BLOOD BY AUTOMATED COUNT 3.5 0.4 - 6.8 04/24 Specimen Type: BLOOD No comment entered. Ordering Provider: Bo MARTINEZ Report Released Date/Time: Apr 16, 2023 11:34 AM Reporting Lab: [facility] [address] [facility] [address] Performing Lab: [facility] [address] [facility] [address] [facility] CBC AND DIFF (AUTO) BASOPHILS/1 00 LEUKOCYTES IN BLOOD BY AUTOMATED COUNT 0.8 0.1 - 2.0 04/24 Specimen Type: BLOOD No comment entered. Ordering Provider: Bo MARTINEZ Report Released Date/Time: Apr 16, 2023 11:34 AM Reporting Lab: [facility] [address] [facility] [address] Performing Lab: [facility] [facility] [address] [facility] [address] [facility] CBC AND DIFF (AUTO) NEUTROPHILS [#/VOLUME] IN BLOOD BY AUTOMATED COUNT 3.82 10*3/u L 2.20 - 7.60 04/24 Specimen Type: BLOOD No comment entered. Ordering Provider: Bo MARTINEZ Report Released Date/Time: Apr 16, 2023 11:34 AM Reporting Lab: [facility] [address] [facility] [address] Performing Lab: [facility] [place] [facility] [address] [facility] [address] [facility] CBC AND DIFF (AUTO) LYMPHOCYTES [#/VOLUME] IN BLOOD BY AUTOMATED COUNT 1.50 10*3/u L 1.00 - 3.20 04/24 Specimen Type: BLOOD No comment entered. Ordering Provider: Bo MARTINEZ Report Released Date/Time: Apr 16, 2023 11:34 AM Reporting Lab: [facility] [address] [facility] [address] Performing Lab: [facility] [address] [facility] [address] [facility] CBC AND DIFF (AUTO) EOSINOPHILS [#/VOLUME] IN BLOOD BY AUTOMATED COUNT 0.22 10*3/u L 0.03 - 0.44 04/24 Specimen Type: BLOOD No comment entered. Ordering Provider: Bo MARTINEZ Report Released Date/Time: Apr 16, 2023 11:34 AM Reporting Lab: [facility] [address] [address] Performing Lab: [facility] [address] [address] [facility] CBC AND DIFF (AUTO) BASOPHILS [#/VOLUME] IN BLOOD BY AUTOMATED COUNT 0.05 10*3/u L 0.01 - 0.13 04/24 Specimen Type: BLOOD No comment entered. Ordering Provider: Bo MARTINEZ Report Released Date/Time: Apr 16, 2023 11:34 AM Reporting Lab: [facility] [address] [address] Performing Lab: [facility] [address] [address] [facility] CBC AND DIFF (AUTO) IMMATURE GRANULOCYTE S/100 LEUKOCYTES IN BLOOD BY AUTOMATED COUNT 0.2 0.0 - 0.7 04/24 Specimen Type: BLOOD No comment entered. Ordering Provider: Bo MARTINEZ Report Released Date/Time: Apr 16, 2023 11:34 AM Reporting Lab: [facility] [address] [address] Performing Lab: [facility] [address] [address] [facility] CBC AND DIFF (AUTO) IMMATURE GRANULOCYTE S [#/VOLUME] IN BLOOD 0.01 10*3/u L 0.00 - 0.06 04/24 Specimen Type: BLOOD No comment entered. Ordering Provider: Bo MARTINEZ Report Released Date/Time: Apr 16, 2023 11:34 AM Reporting Lab: [facility] [address] [address] Performing Lab: [facility] [address] [facility] [address] [facility] VITAMIN D 25-OH (Therapy monitor) 25-HYDROXYV ITAMIN D3 [MASS/VOLUM E] IN SERUM OR PLASMA 33 ng/mL 30 - 100 08/12 Specimen Type: SERUM Comment: Vitamin D, 25-Hydroxy reports concentrati ons of two common forms, 25-OHD2 and 25-OHD3. 25-OHD3 indicates both endogenous production and supplementa tion. 25-OHD2 is an indicator of exogenous sources such as diet or supplementa tion. Therapy is based on measurement of Total 25-OHD, with levels <20 ng/mL indicative of Vitamin D deficiency, while levels between 20 ng/mL and 30 ng/mL suggest insufficien cy. Optimal levels are > or = 30 ng/mL. Vitamin D is fat-soluble and therefore inadvertent or intentional ingestion of excessively high amounts could be toxic. Studies in children and adults suggest blood levels would need to exceed 150 ng/mL before there is any concern. Vita MF, Katie DAVISON, Allison SHEPHERD, et al. Evaluation, treatment and prevention of vitamin D deficiency: an Endocrine Society clinical practice guideline. J Clin Endocrinol Metab. 2011;96(7): 1911-30. For additional information , please refer to http://educ ation.[employer] .Datalot/faq/FA Q199 (This link is being provided for information al/ educational purposes only.) This test was developed and its analytical performance characteris tics have been determined by [place] It has not been cleared or approved by the U.S. Food and Drug Administrat [employer]. This assay has been validated pursuant to the CLIA regulations and is used for clinical purposes. This test was developed and its analytical performance characteris tics have been determined by [facility] [place]. It has not been cleared or approved by the U.S. Food and Drug Administrat [employer]. This assay has been validated pursuant to the CLIA regulations and is used for clinical purposes. Test [facility] by [facility], [facility], [address] [place] [address] Hayes Granado M.D., Ph.D., Director of Laboratorie s , CLIA [id number] TEST PERFORMED AT: , Ordering Provider: Bo MARTINEZ Report Released Date/Time: Aug 30, 2021 11:50 AM Reporting Lab: [facility] [address] [facility] [address] Performing Lab: [facility] [address] [address] [facility] VITAMIN D 25-OH (Therapy monitor) 25-HYDROXYV ITAMIN D3 [MASS/VOLUM E] IN SERUM OR PLASMA 33 ng/mL 08/12 Specimen Type: SERUM Comment: Vitamin D, 25-Hydroxy reports concentrati ons of two common forms, 25-OHD2 and 25-OHD3. 25-OHD3 indicates both endogenous production and supplementa tion. 25-OHD2 is an indicator of exogenous sources such as diet or supplementa tion. Therapy is based on measurement of Total 25-OHD, with levels <20 ng/mL indicative of Vitamin D deficiency, while levels between 20 ng/mL and 30 ng/mL suggest insufficien cy. Optimal levels are > or = 30 ng/mL. Vitamin D is fat-soluble and therefore inadvertent or intentional ingestion of excessively high amounts could be toxic. Studies in children and adults suggest blood levels would need to exceed 150 ng/mL before there is any concern. Vita MF, Katie NC, Allison herzog SHEPHERD, et al. Evaluation, treatment and prevention of vitamin D deficiency: an Endocrine Society clinical practice guideline. J Clin Endocrinol Metab. 2011;96(7): 1911-30. For additional information , please refer to http://educ ation.Toutiao .com/faq/FA Q145 (This link is being provided for information al/ educational purposes only.) This test was developed and its analytical performance characteris tics have been determined by [employer] [place]. It has not been cleared or approved by the U.S. Food and Drug Administrat ion. This assay has been validated pursuant to the CLIA regulations and is used for clinical purposes. This test was developed and its analytical performance characteris tics have been determined by [place] It has not been cleared or approved by the U.S. Food and Drug Administrat ion. This assay has been validated pursuant to the CLIA regulations and is used for clinical purposes. Test Performed by [facility], [employer] [facility], [address] [place], [place] Hayes Granado M.D., Ph.D., Director of Laboratorie s , CLIA [id number] TEST PERFORMED AT: , Ordering Provider: Bo MARTINEZ Report Released Date/Time: Aug 30, 2021 11:50 AM Reporting Lab: [facility] [address] [facility] [address] Performing Lab: [facility] [address] [address] [facility] VITAMIN D 25-OH (Therapy monitor) CALCIFEROL (VIT D2) [MASS/VOLUM E] IN SERUM OR PLASMA <4ng/m L 08/12 Specimen Type: SERUM Comment: Vitamin D, 25-Hydroxy reports concentrati ons of two common forms, 25-OHD2 and 25-OHD3. 25-OHD3 indicates both endogenous production and supplementa tion. 25-OHD2 is an indicator of exogenous sources such as diet or supplementa tion. Therapy is based on measurement of Total 25-OHD, with levels <20 ng/mL indicative of Vitamin D deficiency, while levels between 20 ng/mL and 30 ng/mL suggest insufficien cy. Optimal levels are > or = 30 ng/mL. Vitamin D is fat-soluble and therefore inadvertent or intentional ingestion of excessively high amounts could be toxic. Studies in children and adults suggest blood levels would need to exceed 150 ng/mL before there is any concern. Vita CAREY, Katie DAVISON, Allison SHEPHERD, et al. Evaluation, treatment and prevention of vitamin D deficiency: an Endocrine Society clinical practice guideline. J Clin Endocrinol Metab. 2011;96(7): 1911-30. For additional information , please refer to http://educ ation.Toutiao .com/faq/FA Q199 (This link is being provided for information al/ educational purposes only.) This test was developed and its analytical performance characteris tics have been determined by [employer] [place]. It has not been cleared or approved by the U.S. Food and Drug Administrat ion. This assay has been validated pursuant to the CLIA regulations and is used for clinical purposes. This test was developed and its analytical performance characteris tics have been determined by [employer] [place]. It has not been cleared or approved by the U.S. Food and Drug Administrat ion. This assay has been validated pursuant to the CLIA regulations and is used for clinical purposes. Test Performed by [facility], [employer] [facility], [address] [place] [address] Hayes Granado M.D., Ph.D., Director of Laboratorie s , CLIA [id number] TEST PERFORMED AT: , Ordering Provider: Bo MARTINEZ Report Released Date/Time: Aug 30, 2021 11:50 AM Reporting Lab: [address] [address] Performing Lab: [place] [id number] LIVER FUNCTION PROTEIN [MASS/VOLUM E] IN SERUM OR PLASMA 7.3 g/dL 6.0 - 8.3 08/12 Specimen Type: SERUM No comment entered. Ordering Provider: Bo MARTINEZ Report Released Date/Time: Aug 30, 2021 11:50 AM Reporting Lab: [address] [address] Performing Lab: [address] [address] [facility] LIVER FUNCTION ALBUMIN [MASS/VOLUM E] IN SERUM OR PLASMA 4.3 g/dL 3.5 - 5.0 08/12 Specimen Type: SERUM No comment entered. Ordering Provider: Bo MARTINEZ Report Released Date/Time: Aug 30, 2021 11:50 AM Reporting Lab: [facility] [address] [facility] [address] Performing Lab: [facility] [address] [facility] [address] [facility] LIVER FUNCTION ALKALINE PHOSPHATASE [ENZYMATIC ACTIVITY/VO LUME] IN SERUM OR PLASMA 82 U/L 40 - 150 08/12 Specimen Type: SERUM No comment entered. Ordering Provider: Bo MARTINEZ Report Released Date/Time: Aug 30, 2021 11:50 AM Reporting Lab: [facility] [address] [facility] [address] Performing Lab: [facility] [place] [facility] [address] [facility] [address] [facility] LIVER FUNCTION ASPARTATE AMINOTRANSF ERASE [ENZYMATIC ACTIVITY/VO LUME] IN SERUM OR PLASMA 21 U/L 5 - 34 08/12 Specimen Type: SERUM No comment entered. Ordering Provider: Bo MARTINEZ Report Released Date/Time: Aug 30, 2021 11:50 AM Reporting Lab: [facility] [place] [facility] [address] [facility] [address] Performing Lab: [facility] [address] [facility] [address] [facility] LIVER FUNCTION ALANINE AMINOTRANSF ERASE [ENZYMATIC ACTIVITY/VO LUME] IN SERUM OR PLASMA 18 U/L 08/12 Specimen Type: SERUM No comment entered. Ordering Provider: Bo MARTINEZ Report Released Date/Time: Aug 30, 2021 11:50 AM Reporting Lab: [facility] [place] [facility] [address] [facility] [address] Performing Lab: [facility] [address] [facility] [address] [facility] LIVER FUNCTION BILIRUBIN.T OTAL [MASS/VOLUM E] IN SERUM OR PLASMA 0.4 mg/dL 0.2 - 1.2 08/12 Specimen Type: SERUM No comment entered. Ordering Provider: Bo MARTINEZ Report Released Date/Time: Aug 30, 2021 11:50 AM Reporting Lab: [facility] [address] Performing Lab: [facility] [address] [facility] BASIC METABOLIC PANEL (fasting) UREA NITROGEN [MASS/VOLUM E] IN SERUM OR PLASMA 20 mg/dL 7 - 25 08/12 Specimen Type: SERUM No comment entered. Ordering Provider: Bo MARTINEZ Report Released Date/Time: Aug 30, 2021 11:50 AM Reporting Lab: [facility] [address] [address] Performing Lab: [facility] [address] [facility] BASIC METABOLIC PANEL (fasting) GLUCOSE [MASS/VOLUM E] IN SERUM OR PLASMA 101 mg/dL 65 - 100 08/12 H Specimen Type: SERUM No comment entered. Ordering Provider: Bo MARTINEZ Report Released Date/Time: Aug 30, 2021 11:50 AM Reporting Lab: [facility] [place] [address] [address] Performing Lab: [facility] [place] [address] [address] [facility] BASIC METABOLIC PANEL (fasting) SODIUM [MOLES/VOLU ME] IN SERUM OR PLASMA 136 mmol/L 135 - 145 08/12 Specimen Type: SERUM No comment entered. Ordering Provider: Bo MARTINEZ Report Released Date/Time: Aug 30, 2021 11:50 AM Reporting Lab: [facility] [address] Performing Lab: [facility] [place] [facility] [address] [facility] [address] [facility] [facility] BASIC METABOLIC PANEL (fasting) POTASSIUM [MOLES/VOLU ME] IN SERUM OR PLASMA 4.4 mmol/L 3.5 - 5.0 08/12 Specimen Type: SERUM No comment entered. Ordering Provider: Bo MARTINEZ Report Released Date/Time: Aug 30, 2021 11:50 AM Reporting Lab: [facility] [place] [facility] [address] [facility] [address] Performing Lab: [facility] [place] [facility] [address] [facility] [address] [facility] BASIC METABOLIC PANEL (fasting) CHLORIDE [MOLES/VOLU ME] IN SERUM OR PLASMA 102 mmol/L 100 - 110 08/12 Specimen Type: SERUM No comment entered. Ordering Provider: Bo MARTINEZ Report Released Date/Time: Aug 30, 2021 11:50 AM Reporting Lab: [facility] [place] [facility] [address] [facility] [address] Performing Lab: [facility] [address] [facility] [address] [facility] BASIC METABOLIC PANEL (fasting) CARBON DIOXIDE, TOTAL [MOLES/VOLU ME] IN SERUM OR PLASMA 24 meq/L 20 - 30 08/12 Specimen Type: SERUM No comment entered. Ordering Provider: Bo MARTINEZ Report Released Date/Time: Aug 30, 2021 11:50 AM Reporting Lab: [facility] [place] [facility] [address] [facility] [address] Performing Lab: [facility] [place] [facility] [address] [facility] [address] [facility] BASIC METABOLIC PANEL (fasting) CREATININE [MASS/VOLUM E] IN SERUM OR PLASMA 0.80 mg/dL 0.50 - 1.40 08/12 Specimen Type: SERUM No comment entered. Ordering Provider: Bo MARTINEZ Report Released Date/Time: Aug 30, 2021 11:50 AM Reporting Lab: [facility] [place] [facility] [address] [facility] [address] Performing Lab: [facility] [place] [facility] [address] [facility] [address] [facility] BASIC METABOLIC PANEL (fasting) GLOMERULAR FILTRATION RATE/1.73 SQ M.PREDICTED [VOLUME RATE/AREA] IN SERUM, PLASMA OR BLOOD BY CREATININE- BASED FORMULA (CKD-EPI) >90mL/ min 08/12 Specimen Type: SERUM No comment entered. Ordering Provider: Bo MARTINEZ Report Released Date/Time: Aug 30, 2021 11:50 AM Reporting Lab: [facility] [place] [facility] [address] [facility] [address] Performing Lab: [facility] [place] [facility] [address] [facility] [address] [facility] [place] [facility] VITAMIN B12 COBALAMIN (VITAMIN B12) [MASS/VOLUM E] IN SERUM OR PLASMA 454 pg/mL 200 - 900 08/12 Specimen Type: SERUM No comment entered. Ordering Provider: Bo MARTINEZ Report Released Date/Time: Aug 30, 2021 11:50 AM Reporting Lab: [facility] [place] [facility] [address] [facility] [address] Performing Lab: [facility] [place] [facility] [address] [facility] [address] [facility] [place] [facility] LIPID PANEL FASTING CHOLESTEROL [MASS/VOLUM E] IN SERUM OR PLASMA 127 mg/dL 08/12 Specimen Type: SERUM No comment entered. Ordering Provider: Bo MARTINEZ Report Released Date/Time: Aug 30, 2021 11:50 AM Reporting Lab: [facility] [place] [facility] [address] [facility] [address] Performing Lab: [facility] [place] [facility] [address] [facility] [address] [facility] [place] [facility] LIPID PANEL FASTING TRIGLYCERID E [MASS/VOLUM E] IN SERUM OR PLASMA 83 mg/dL 0 - 150 08/12 Specimen Type: SERUM No comment entered. Ordering Provider: Bo MARTINEZ Report Released Date/Time: Aug 30, 2021 11:50 AM Reporting Lab: [facility] [place] [facility] [address] [facility] [address] Performing Lab: [facility] [place] [facility] [address] [facility] [address] [facility] [place] [facility] LIPID PANEL FASTING CHOLESTEROL IN LDL [MASS/VOLUM E] IN SERUM OR PLASMA BY CALCULATION 58 mg/dL 0 - 129 08/12 Specimen Type: SERUM No comment entered. Ordering Provider: Bo MARTINEZ Report Released Date/Time: Aug 30, 2021 11:50 AM Reporting Lab: [facility] [address] Performing Lab: [facility] [place] [address] [address] [facility] LIPID PANEL FASTING CHOLESTEROL .TOTAL/CHOL ESTEROL IN HDL [MASS RATIO] IN SERUM OR PLASMA 2.4 08/12 Specimen Type: SERUM No comment entered. Ordering Provider: Bo MARTINEZ Report Released Date/Time: Aug 30, 2021 11:50 AM Reporting Lab: [facility] [place] [facility] [address] [facility] [address] Performing Lab: [facility] [place] [facility] [address] [facility] [address] [facility] [place] [facility] LIPID PANEL FASTING CHOLESTEROL IN HDL [MASS/VOLUM E] IN SERUM OR PLASMA 52 mg/dL 40 - 60 08/12 Specimen Type: SERUM No comment entered. Ordering Provider: Bo MARTINEZ Report Released Date/Time: Aug 30, 2021 11:50 AM Reporting Lab: [facility] [place] [facility] [address] [facility] [address] Performing Lab: [facility] [place] [facility] [address] [facility] [address] [facility] Vital Signs Combined list of inpatient and outpatient Vital Signs from Department of Defense and Veterans Affairs, ranging from 12 months to all on record, depending upon the facility. Vital Sign Value Date Comments Source SYSTOLIC BLOOD PRESSURE 130 04/29/19 24 09:52:15 [facility] DIASTOLIC BLOOD PRESSURE 80 024 09:52:15 [facility] PULSE OXIMETRY 98 04/29/2023 09:52:15 [facility] WEIGHT 302 04/29/2023 09:52:15 [facility] BMI 39kg/m2 04/29/2023 09:52:15 [facility] PAIN 5 04/29/2023 09:52:15 [facility] TEMPERATURE 98.4 04/29/2023 09:52:15 [facility] PULSE 88 04/29/2023 09:52:15 [facility] RESPIRATION 16 04/29/2023 09:52:15 [facility] Encounters Combined list of: 1) Encounters from Department of Veterans Affairs facilities going back up to thelast 18 months. 2) Encounters from the Department of Defense facilities going back up to 280 months. Location Location Details Encounter Type Encounter Number Reason For Visit Attending Provider ADM Date DC Date Status Disposition Source [facility] Encounter [id number] 08/27 [facility] [id number] 09/30 [facility]counter [id number] 10/01 [facility]counter [id number] 10/17 [facility] [id number] 11/28 [facility] [id number] 12/30 [facility] En[facility] [id number] 01/28 [facility] En[facility] [id number] 03/14 [facility] En[facility] [id number] 03/26 [facility] En[facility] [id number] 04/03 [facility] COMPRE OPH EXAM EST PT 1/> [id number] Diagnos is: ICD-10- CM L71.8 Other rosacea
ELISA ALAN 04/16 [facility] FIT SPECTACLES MONOFOCAL [id number] Diagnos is: ICD-10- CM Z46.0 Encount er for fit/adj st of spectac les and contact lenses< br/> ELISA ALAN 04/17 [facility] CLEAN/INSP ECT MAX COMP DENT [id number] Diagnos is: ICD-10- CM K03.6 Deposit s [accret ions] on teeth<b r/> Stephanie YI 04/24 [place] [facility] [place] [facility] [place] [facility] OFFICE O/P EST MOD 30 MIN [id number] Diagnos is: ICD-10- CM Z77.29 Contact with and exposur e to other hazardo us substan efren<br/ > BLAISE MARTINEZ 04/28 [place] [facility] [place] [facility] [place] [facility] Outpatient Encounter [id number] 10/26 [place] [facility] [place] [facility] Social History Combined list of available smoking, tobacco, and other social history from [facility] of Defense and [facility] facilities. Social History Type Response Date Comment Source Tobacco smoking status [facility] VA-TOBACCO USE WI 30 MIN OF WAKEUP 04/29/2023 [place] [facility] [place] [facility] History of tobacco use NH-TOBACCO USER EVERY DAY 04/29/2023 [place] [facility] [place] [facility] History of tobacco use VA-TOBACCO USER EVERY DAY 07/19/2021 [facility] [place] [facility] History of tobacco use NH-TOBACCO FORMER USER 05/09/2020 [place] [facility] [place] [facility] History of tobacco use NH-TOBACCO QUIT 5 TO < 15 YRS 03/23/2019 [place] [facility] [place] [facility] History of tobacco use NH-TOBACCO NEVER USED 01/19/2018 [facility] [place] [facility] History of tobacco use QUIT TOBACCO USE 1-7 YEARS AGO 01/17/2017 [place] [facility] [place] [facility] History of tobacco use QUIT TOBACCO USE 1-7 YEARS AGO 04/19/2016 [place] [facility] [place] [facility] History of tobacco use QUIT TOBACCO USE 1-7 YEARS AGO 05/05/2014 [place] [facility] [place] [facility] History of tobacco use QUIT TOBACCO USE 1-7 YEARS AGO 04/08/2013 [facility] of tobacco use CURRENT SMOKER 01/10/2012 [facility] History of tobacco use V1-PT DECLINES TOBACCO CESSATION MEDS 04/25/2011 [facility] History of tobacco use CURRENT SMOKER 08/16/2010 1 pk per wk [facility] History of tobacco use V1-PT THINKING ABOUT QUIT TOBACCO USE 12/28/2009 [facility] History of tobacco use V1-PT DECLINES TOBACCO CESSATION MEDS 03/20/2009 [facility] History of tobacco use CURRENT SMOKER 03/13/2009 just when he is drinking. He can't stand it otherwise. [facility] Plan of Care List of future care activities from [facility] facilities. Additional future care activities may be listed in the Assessment and Plan section. Date/Time Care Activity Care Activity Detail Facili ty 02/20/2024 AMBULATORY - NONE AMBULATORY - NONE [facility] 04/22/2024 AMBULATORY - MEDICINE AMBULATORY - MEDICI NE [facility] 04/27/2024 AMBULATORY - MEDICINE AMBULATORY - MEDICI NE [facility] Advance Directives List of completed, amended, or rescinded Advance Directives on record at [facility] facilities. An actual copy of the Directive is not included. Date Advance Directive Provider Source 06/08/2014 ADVANCE DIRECTIVE TARYN VILLATORO [facility]
--- OUTSIDE RECORDS SUMMARY | 2024-01-20 16:22 | XMS_ITS | Patient Health Record ---
Author Organization [facility] Address [address] [place] [address] Care Team Providers Care Engineering Supplies Sales Name Role Phone MARGOT SOSA Primary Care Provider UnavailGamaliel Woods Unavailable [phone] Dao Chowdary Unavailable Unavaila ble ALLERGIES Allergen (clinical drug ingredient) Drug/Non Drug Allergy documented on EMR Reaction Allergy Type Onset Date Status morphine Morphine Sulfate Unknown Drug Allergy Active REASON FOR REFERRAL No Information MEDICATIONS Medication SIG (Take, Route, Frequency, Duration) Notes Start Date End Date Status Ibuprofen 200 MG 1 tablet with food o r milk as needed Orally as needed Active Multivitamin Adult Orally A ctive Sertraline HCl 50 MG TAKE 1 TABLET BY MO UTH EVERY DAY Oral for 90 Active Multaq 400 MG TAKE 1 TABLET BY QI TH TWICE A DAY WITH FOOD Oral for 90 Active Rosuvastatin Calcium 20 MG TAKE 1 TABLET BY MOUTH EVERY DAY Oral for 90 Active Lisinopril 10 MG 1 tablet Orally Once a day Active Eliquis 5 MG Orally twice a day Active Omeprazole 20 MG 1 capsule Orally Onc e a day Active IMMUNIZATIONS Vaccine Route Administration Date Status Comme nts Influenza Unknown 10/11/2018 Administered SOCIAL HISTORY Sex Assigned At : Social History Observation Description Sex Assigned At Unknown Alcohol Screen Question Answer Notes Did you have a drink containing alcohol in the p ast year? No Points 0 Interpretation Negative PROBLEMS Problem Type ICD Code Onset Dates Problem Status W/U Status Risk SNOMED Code Notes Problem Encounter for screening for malignant neoplasm of colon (Z12.11) Active confirmed 472215363 Problem History of adenomatous polyp of colon (Z86.010) Active confirmed 261979567 Problem Gastroesophageal reflux disease without esophagitis (K21.9) Active confirmed 488782883 Problem Preprocedural examination (Z01.818) Active confirmed 238217504959778 Problem Long-term (current) use of anticoagulants, INR goal 2.0-3.0 (Z79.01) Active confirmed 160488065 PLAN OF TREATMENT Future Test Test Name Order Date COLONOSCOPY 07/06/2014 COLONOSCOPY 09/23/2019 Next Appt Details Provider Name:Gamaliel Abernathy , 03/16/2024 11:10:00 AM, [address] [facility], [address], [place], [address], Insurance Providers Payer Name Payer Address Payer Phone Subscriber Number Group Number Insured Name Patient Relationship to Insured Coverage Start Date Coverage End Date MEDICARE OF [place] [address] [place] [address] [id number] SOFIA GAYTAN Self - patient is the insured [employer] ATT[employer] CLAIMS [address] [place] [phone] [id number] SOFIA GAYTAN Self - patient is the insured MEDICAL (GENERAL) HISTORY Medical History History ICD Code Colon polyps--tubular adenomas removed i n 1994, 2003, and 03/2009 A.fib--cardiac ablation--Dr. Palma Denies [place],DM,CVA,Lung disease,renal dise ase Sleep apnea-uses a CPAP machine GERD-EGD in 2003 was normal Mild sigmoid diverticulosis and small internal hemorrhoids noted on previous colonoscopies Negative colonoscopy in 08/2014 Hypertension Surgical History Surgery Date(Month/Year) Right knee surgery Sleep apnea surgery in the Left hip replacement-- [facility] 08/2015
--- OUTSIDE RECORDS SUMMARY | 2024-01-20 16:23 | XMS_ITS | Encounter Summary ---
Author Name [facility] [place] [facility] [place] [facility] [facility] [place] Address [address] [place] [id number] Care Team Providers Care Health Management Consultant Name Role Phone BLAISE MARTINEZ Primary Care [...] SUPPLEMEN ROHITH MEDEX 2 Aug 10, 2018 [phone] Cresencio GAYTAN PATIENT [place] SUPPLEMEN ROHITH MEDEX 2 Aug 10, 2018 [id number] Cresencio GAYTAN [place] SUPPLEMEN ROHITH MEDEX 2 Aug 10, 2018 [id number] Cresencio GAYTAN PATIENT [place] SUPPLEMEN ROHITH MEDEX 2 Aug 10, 2018 [id number] [phone] Cresencio GAYTAN PATIENT [place] PREFERRED PROVIDER ORGANIZAT ION (PPO) [facility] Apr 10, 2009 [id number] [phone] Cresencio GAYTAN PATIENT CIG[employer] POINT OF SERVICE [facility] Aug 10, 2016 [id number] [phone] Cresencio GAYTAN PATIENT CIGNA BEHAVIORAL HEALTH MENTAL HEALTH [facility] Aug 10, 2016 [id number] Cresencio GAYTAN PATIENT CIGNA PHARMACY PRESCRIPT ION [facility] Aug 10, 2016 [id number] [phone] Cresencio GAYTAN PATIENT [employer] ([id number]) PRESCRIPT ION BCBSM A June 21, 2010 MASA [id number] Cresencio GAYTAN PATIENT MEDICARE (WNR) MEDICARE () PART A Aug 10, 2018 PART A [id number] Cresencio GAYTAN PATIENT MEDICARE (WNR) MEDICARE () PART B Aug 10, 2018 PART B [id number] Cresencio GAYTAN PATIENT MEDICARE (WNR) MEDICARE (M) PART A Aug 10, 2018 PART A [id number] [phone] Cresencio GAYTAN PATIENT MEDICARE (WNR) MEDICARE () PART B Aug 10, 2018 PART B [id number] Cresencio GAYTAN PATIENT Selected Encounter This section includes the information on record at [place] for the Encounter. Date/Time Encounter Type Encounter Description Reason Provider Source Apr 17, 2023 07:30 AM COMPRE OPH EXAM EST PT 1/> OPTOMETRY ICD-10-CM L71.8 Other KELLI Cates Renu Encounter Template Text not used by [place] Assessments - Encounter Diagnoses This section includes the primary and secondary diagnoses documented for the Encounter. Date/Time Primary/Secondary Diagnosis Diagnosis Name Provider Source May 09, 2023 11:30 AM PRIMARY Other KELLI Cates [facility] [place] [facility] May 09, 2023 11:30 AM SECONDARY Age-related nuclear cataract, bilateral KELLI ALAN [place] [facility] [place] [facility] May 09, 2023 11:30 AM SECONDARY Dry eye syndrome of bilateral lacrimal glands KELLI ALAN [place] [facility] [place] [facility] May 09, 2023 11:30 AM SECONDARY Meibomian gland dysfnct left eye, upper and lower eyelids KELLI ALAN [place] [facility] [place] [facility] May 09, 2023 11:30 AM SECONDARY Meibomian gland dysfnct right eye, upper and lower eyelids [facility] May 09, 2023 11:30 AM SECONDARY Other emt intermediate (current) drug therapy [facility] May 09, 2023 11:30 AM SECONDARY Vitreous degeneration, right eye [facility] Plan of Treatment: Future Appointments (+ 6 months) and Future Tests (+/- 45 days) The Plan of Treatment section includes future care activities for the patient from all [place] treatmentfacilities. This section includes future appointments and future orders which are active, pending or scheduled. Future Appointments This section includes appointments that were scheduled to occur 6 months from the date of the Encounter, up to a maximum of 20 appointments. The data comes from all [place] treatment facilities. Appointment Date/Time Appointment Type Appointme nt Facility Name Apr 25, 2023 08:30 AM [facility] N[facility] Apr 29, 2023 10:00 AM AMBULATORY - MEDICINE [facility] Lab Results: +/- 30 days of the encounter This section includes the Chemistry and Hematology Lab Results on record with [place] for the patient. Radiology Reports and Pathology Reports are provided separately, in subsequent sections. Lab Results This section contains the Chemistry/Hematology Results that were resulted 30 days before or 30 daysafter the date of the Encounter. Date/Time Source Result Type Result - Unit Interpretation Reference Range Comment Apr 25, 2023 07:37 AM [facility] VITAMIN D (25-OH) Specimen Type: SERUM No comment entered. Ordering Provider: NAVA MARTINEZ Report Released Date/Time: Apr 16, 2023 11:34 AM Reporting Lab: [facility] [address] [place] [address] Performing Lab: [facility] [address] [facility] [address] VITAMIN D (25-OH) 29 ng/mL 20-50 Apr 25, 2023 07:37 AM [facility] LIPID PANEL FASTING Specimen Type: SERUM No comment entered. Ordering Provider: NAVA MARTINEZ Report Released Date/Time: Apr 16, 2023 11:34 AM Reporting Lab: [facility] [address] [facility] [address] Performing Lab: [address] [address] CHOLESTEROL 138 mg/dL TRIGLYCERIDE 83 mg/dL 0-150 LDL calculated 68 mg/dL 0-129 CHOL/HDL 2.6 HDL CHOLESTEROL 53 mg/dL 40-60 Apr 25, 2023 07:37 AM [facility] BASIC METABOLIC PANEL (fasting) Specimen Type: SERUM No comment entered. Ordering Provider: NAVA MARTINEZ Report Released Date/Time: Apr 16, 2023 11:34 AM Reporting Lab: [address] [address] Performing Lab: [address] [address] UREA NITROGEN 16 mg/dL 7-25 GLUCOSE 99 mg/dL 65-100 SODIUM 140 mmol/L 135-145 POTASSIUM 4.5 mmol/L 3.5-5.0 CHLORIDE 103 mmol/L 100-110 CO2 27 meq/L 20-30 CREATININE, Serum 0.80 mg/dL 0.50-1.40 eGFR(CKD-EPI 2020) >90 mL/min >60 Apr 25, 2023 07:37 AM [facility] LIVER FUNCTION Specimen Type: SERUM No comment entered. Ordering Provider: NAVA MARTINEZ Report Released Date/Time: Apr 16, 2023 11:34 AM Reporting Lab: [address] [address] Performing Lab: [facility] [address] [facility] [address] PROTEIN,TOTAL 7.3 g/dL 6.0-8.3 ALBUMIN 4.1 g/dL 3.5-5.0 ALKALINE PHOSPHATASE 75 U/L 40-150 AST 21 U/L 5-34 ALT 25 U/L BILIRUBIN, TOTAL 0.3 mg/dL 0.2-1.2 Apr 25, 2023 07:37 AM [facility] CBC AND DIFF (AUTO) Specimen Type: BLOOD No comment entered. Ordering Provider: NAVA MARTINEZ Report Released Date/Time: Apr 16, 2023 11:34 AM Reporting Lab: [facility] [address] [facility] [address] Performing Lab: [address] [address] WBC 6.22 10*3/uL 4.50-11.00 RBC 4.24 10*6/uL 4.23-5.66 HGB 13.2 g/dL 12.8-17 HCT 38.6 L 39.2-50.4 MCV 91.0 fL 82-99 MCHC 34.2 g/dL 30.8-35.1 PLT 228 10*3/uL 140-360 RDW-CV 13.2 12.0-16.0 Platte, Abs 0.62 10*3/uL 0.30-1.10 MCH 31.1 pg 26.2-32.6 Neut % 61.4 43.7-75.8 Lymph % 24.1 14.0-42.3 Platte % 10.0 5.1-13.7 Eos % 3.5 0.4-6.8 [...] and tobacco- related health factors from the [place] facility where the Encounter took place. Current Smoking Status This section includes the most current smoking, or tobacco-related health factor, from the [place] facility where the Encounter took place. Date/Time Current Smoking Status Comment [facility] Jul 19, 2021 10:25 AM VA-TOBACCO USER EVERY DAY IN [facility] [place] [place] [facility] Tobacco Use History This section includes a history of the smoking, or tobacco-related health factors, that were collected on or before the date of the Encounter. The data comes from the [place] facility where the Encounter took place. 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 IN [facility] [place] [place] [facility] Jul 19, 2021 10:25 AM VA-TOBACCO USE MED NO IN [facility] [place] [place] [facility] Jul 19, 2021 10:25 AM VA-TOBACCO USER EVERY DAY IN [facility] [place] [place] [facility] May 09, 2020 08:00 AM VA-TOBACCO FORMER USER [facility] [place] [place] [facility] May 09, 2020 08:00 AM VA-TOBACCO QUIT < 1 YEAR [facility] [place] [place] [facility] Mar 23, 2019 09:01 AM VA-TOBACCO FORMER USER [facility] [place] [facility] Mar 23, 2019 09:01 AM VA-TOBACCO QUIT 5 TO < 15 YRS IN [facility] [place] [place] [facility] Jan 19, 2018 08:24 AM VA-TOBACCO NEVER USED [facility] [place] [place] [facility] Jan 17, 2017 08:30 AM QUIT TOBACCO USE > 7 YEARS AGO [facility] [place] [place] [facility] Jan 17, 2017 08:30 AM QUIT TOBACCO USE 1-7 YEARS AGO [facility] [place] [place] [facility] Apr 19, 2016 01:06 PM QUIT TOBACCO USE 1-7 YEARS AGO [facility] [place] [place] [facility] May 05, 2014 08:45 AM QUIT TOBACCO USE 1-7 YEARS AGO [facility] [place] [facility] Apr 08, 2013 08:46 AM QUIT TOBACCO USE 1-7 YEARS AGO . [facility] [place] [place] [facility] Jan 10, 2012 08:23 AM CURRENT SMOKER [facility] [place] [facility] Jan 10, 2012 08:23 AM V1-PT DECLINES REF TO TOBACCO CESS PRGM [facility] [place] [place] [facility] Jan 10, 2012 08:23 AM V1-PT DECLINES TOBACCO CESSATION MEDS [facility] [place] [place] [facility] Jan 10, 2012 08:23 AM V1-PT THINKING ABOUT QUIT TOBACCO USE [facility] [place] [place] [facility] Apr 25, 2011 08:23 AM V1-PT DECLINES REF TO TOBACCO CESS PRGM [facility] [place] [facility] Apr 25, 2011 08:23 AM V1-PT DECLINES TOBACCO CESSATION MEDS [facility] [place] [place] [facility] Apr 25, 2011 08:23 AM V1-PT THINKING ABOUT QUIT TOBACCO USE [facility] [place] [facility] Aug 16, 2010 09:12 AM CURRENT SMOKER 1 pk per wk IN [facility] [place] [place] [facility] Aug 16, 2010 09:12 AM V1-PT DECLINES REF TO TOBACCO CESS PRGM IN [facility] [place] [facility] Aug 16, 2010 09:12 AM V1-PT DECLINES TOBACCO CESSATION MEDS [facility] [place] [place] [facility] Aug 16, 2010 09:12 AM V1-PT NOT INTERESTED IN QUIT TOBACCO USE [facility] [place] [facility] Dec 28, 2009 08:21 AM V1-PT DECLINES REF TO TOBACCO CESS PRGM [facility] [place] [facility] Dec 28, 2009 08:21 AM V1-PT THINKING ABOUT QUIT TOBACCO USE [facility] [place] [facility] Mar 20, 2009 10:53 AM V1-PT DECLINES REF TO TOBACCO CESS PRGM [facility] [place] [place] [facility] Mar 20, 2009 10:53 AM V1-PT DECLINES TOBACCO CESSATION MEDS [facility] [place] [facility] Mar 20, 2009 10:53 AM V1-PT NOT INTERESTED IN QUIT TOBACCO USE [facility] Mar 13, 2009 09:37 AM CURRENT SMOKER just when he is drinking. He can't stand it otherwise. [facility] Advance Directives: All historical and current Section Date Range: From patient's date of to the date document was created. This section includes ALL of a patient's completed or amended [place] Advance and Rescinded Directives. The entries below indicate that a directive exists for the patient, but an actual copy is not included with this document. The data comes from all [place] facilities. Date Advance Directives Provider Source Jun 08, 2014 ADVANCE DIRECTIVE TARYN VILLATORO [facility] Encounter Notes: All associated encounter notes This section contains the clinical notes associated to the Encounter. Date/Time Encounter Note(s) Provider Source Apr 17, 2023 07:27 AM OPTOMETRY NOTE: LOCAL TITLE: OPTOMETRY NOTE STANDARD TITLE: OPTOMETRY NOTE DATE OF NOTE: APR 17, 2023@07:27 ENTRY DATE: APR 17, 2023@07:27:56 AUTHOR: RIVER ALAN EXP COSIGNER: URGENCY: STATUS: COMPLETED Active problems - Computerized Problem List is the source for the followin. AF- Atrial Fibrillation ([facility] [id number]) 2. Abdominal aortic aneurysm 3.0 to 5.5 centimeters in male 3. Family history of colorectal cancer 4. History of total hip arthroplasty 5. Hernia, Ventral 6. PTSD 7. Hand Injuries * 8. Counseling on Substance Use and Abuse 9. Alcohol Dependence 10. Hearing loss * 11. Tinnitus * 12. Obesity * 13. Sleep Apnea 14. Gastroesophageal Reflux Disorder * 15. Hypertension * 16. Urgency of urination Active Outpatient Medications (including Supplies): Active Outpatient Medications Status 1) APIXABAN 5MG TAB TAKE ONE TABLET BY MOUTH TWICE DAILY ACTIVE 2) DRONEDARONE 400MG TAB TAKE ONE TABLET BY MOUTH TWICE ACTIVE DAILY 3) LISINOPRIL 10MG TAB TAKE ONE TABLET BY MOUTH ONCE ACTIVE DAILY TO CONTROL BLOOD PRESSURE 4) OMEPRAZOLE 20MG EC CAP TAKE ONE CAPSULE BY MOUTH ACTIVE EVERY DAY Active Non-VA Medications Status 1) Non-VA FISH OIL 500MG DHA/EPA CAP,ORAL BY MOUTH ACTIVE 2) Non-VA MULTIVITAMIN/MINERALS CAP/TAB 1 TABLET BY ACTIVE MOUTH EVERY DAY 3) Non-VA ROSUVASTATIN TAB BY MOUTH ACTIVE 4) Non-VA VITAMIN D3 (CHOLECALCIFEROL) TAB BY MOUTH ACTIVE 8 Total Medications Allergies: MORPHINE, CODEINE All medications including those prescribed by outside VA's, community providers, and all OTC meds were reviewed and reconciled with patient to the best of their abilities. This 67 year old MALE is seen today for comprehensive eye examination. Medical, eye, personal, and social history are all reviewed and is contributory to today's visit for rosacea facies as well as bilateral meibomian gland dysfunction contributing to bilateral dry eye disease as well as bilateral cataracts. His last eye examination was here on April 16, 2022. (-) Pain: (-) SHEPHERD: (-) Diplopia: (-) Flashes: (-) Floaters: (-) Amaurosis Fugax/Tia's: (-) Eye Injury: (-) Eye Surgery: (-) TBI: Chief Complaint: Blurred vision with glasses for the last several months. He feels he needs to rub his eyes to see more clear but denies dryness or foreign body sensation Vision: With 20/20-2 right eye 20/20-2 left eye Without Correction Pupils, EOMS, confrontation cordon are all done and shows round miotic minimally reactive pupils with full extraocular motility and full confrontation cordon to finger counting each eye Current Wear: OD: +1.25 -0.50 axis 045 OS: +1.25 -0.25 axis 105 +2.50 add Refraction: OD: +1.75 -0.50 axis 045 20/20 more clear OS: +1.50 -0.50 axis 105 20/20 more clear +2.50 add 20/20 Tonometry: 12 OD 12 OS Time: 7:26 AM dilated with tropicamide 1% and phenylephrine 2.5% each eye after dilation warning given and verbal consent obtained PreTreatment IOP: OD OS Pachymetry: Florid rosacea facies with rhinophyma Anterior segment: Lids: Dermatochalasis, ptosis with meibomian gland dysfunction all 4 lids and 1+ lower lid bags each eye Conj: Mild chronic injection each eye Cornea: Clear without staining or pigment but instantaneous TBUT each eye nO KERATOPATHY AC: 3+ quiet each eye Iris: Normal each eye Lens:1 nuclear sclerosis each eye Vit: Posterior vitreous detachment right eye clear left eye Fundus exam: Dilated: xxx Non dilated: C/D: 0.30 each eye with distinct disc margins and good color no ION Macula: Normal each eye A/V: 1/2 each eye Vessels: Mild tortuosity each eye Periphery: No holes, tears, detachments each eye Impression: Rosacea facies with meibomian gland dysfunction all 4 lids contributing to bilateral dry eye disease and somewhat symptomatic at present. There is no evidence of corneal staining but tear break-up time is instantaneous. He has been prescribed lubricating drops which he uses on an as- needed basis and is encouraged to try and use 2-3 times a day every day. Early bilateral nuclear sclerotic cataracts not visually significant at present. Update glasses today distance and near. Posterior vitreous detachment right eye with no evidence of holes, tears, detachments and asymptomatic with regard to floaters or photopsias. Droneadone without evidence of ocular complication or sequelae. Typically this medication is not associated with with corneal keratopathy as is amiodarone but And has been associated with causing ischemic optic neuropathy same as amiodarone.Good acuity with distinct disc margins and good color without evidence of disc pallor either eye. Plan: Patient education as noted above reviewed exam findings now. Order new glasses today. Renew lubricating drops for mail out and encouraged to use on a more frequent and consistent daily basis. Education: Encourage to use lubricating drops on a more frequent and consistent basis. Discussed how symptoms of blurred vision in part are related to dry eye disease. Return to Clinic 12 months or sooner if need be. Suicide Screen: C-SSRS Screening Gray-Suicide Severity Rating Scale (C-SSRS Screener) 1. Over the past month, have you wished you were or wished you could go to sleep and not wake up? No 2. Over the past month, have you had any actual thoughts of killing yourself? No 3. Over the past month, have you been thinking about how you might do this? Response not required due to responses to other questions. 4. Over the past month, have you had these thoughts and had some intention of acting on them? Response not required due to responses to other questions. 5. Over the past month, have you started to work out or worked out the details of how to kill yourself? Response not required due to responses to other questions. 6. If yes, at any time in the past month did you intend to carry out this plan? Response not required due to responses to other questions. 7. In your lifetime, have you ever done anything, started to do anything, or prepared to do anything to end your life (for example, collected pills, obtained a gun, gave away valuables, went to the roof but didn't jump)? No 8. If YES, was this within the past 3 months? Response not required due to responses to other questions. Ophthalmic medication reconciliation: He is prescribed okay to use drops to be used 3-4 times a day each eye. Medication Reconciliation: Outpatient: Has the patient been taking medications as documented in the EMLR? YES: The patient has been taking medications as documented in the EMLR. Essential Medication List for Review used to complete this medication reconciliation. INCLUDED IN THIS LIST: Alphabetical list of active outpatient prescriptions dispensed from this VA (local) and dispensed from another [place] or DoD facility (remote) as well as inpatient orders (local, pending and active), local clinic medications, locally documented non-VA medications, and local prescriptions that have or been discontinued in the past 90 days. - All changes in medications, including all non-VA/Herbal/OTC medications were entered into CPRS. - If there were any medications the patient should no longer take, they were discontinued. - The patient/caregiver was instructed to update this list, discard old lists, and take this list to the next appointment, whether with a VA or non-VA provider. Medication List: JLV Link Data on this list may not be complete. Please check JLV. Allergies/ADRs (Tool #5) FACILITY ALLERGY/ADR -------- [facility] D CODEINE [facility] D M[facility]PHINE [facility] [place] [facility] CODEINE [facility] MORPHINE Med. Reconciliation (Tool #1) INCLUDED IN THIS LIST: Alphabetical list of active outpatient prescriptions dispensed from this [place] (local) and dispensed from another [place] or [facility] facility (remote) as well as inpatient orders (local pending and active), local clinic medications, locally documented non-VA medications, and local prescriptions that have or been discontinued in the past 90 days. Non-VA Meds Last Documented On: Mar 15, 2021 NOTE The display of VA prescriptions dispensed from another [place] or [facility] facility (remote) is limited to active outpatient prescription entries matched to National Drug File at the originating site and may not include some items such as investigational drugs, compounds, etc. NOT INCLUDED IN THIS LIST: Medications self-entered by the patient into personal health records (i.e. [facility]) are NOT included in this list. Non-VA medications documented outside this [place], remote inpatient orders (regardless of status) and remote clinic medications are NOT included in this list. The patient and provider must always discuss medications the patient is taking, regardless of where the medication was dispensed or obtained. OUTPT APIXABAN 5MG TAB (Status = Active) TAKE ONE TABLET BY MOUTH TWICE DAILY Rx# [id number] Last Released: 03/28/23 Qty/Days Supply: 180 Rx Expiration Date: 11/20/23 Refills Remainin OUTPT CARBOXYMETHYLCELLULOSE NA 0.5% OPH SOLN (Status = ) INSTILL 1 DROP INTO EACH EYE FOUR TIMES DAILY NEEDED FOR DRY EYE Rx# [id number] Last Released: 01/28/23 Qty/Days Supply: Rx Expiration Date: 03/27/23 Refills Remainin Indication: FOR DRY EYE OUTPT CARBOXYMETHYLCELLULOSE NA 0.5% OPH SOLN (Status = Pending) INSTILL 1 DROP INTO EACH EYE FOUR TIMES DAILY NEEDED FOR DRY EYE Renewed from Rx# [id number] Qty/Days Supply: Login Date: 04/17/23 Refills Ordered: 11 OUTPT DRONEDARONE 400MG TAB (Status = Active) TAKE ONE TABLET BY MOUTH TWICE DAILY Rx# [id number] Last Released: 01/28/23 Qty/Days Supply: Rx Expiration Date: 10/21/23 Refills Remainin Non-VA FISH OIL 500MG DHA/EPA CAP,ORAL TAKE BY MOUTH OUTPT LISINOPRIL 10MG TAB (Status = Active) TAKE ONE TABLET BY MOUTH ONCE DAILY TO CONTROL BLOOD PRESSURE Rx# [id number] Last Released: 01/28/23 Qty/Days Supply: Rx Expiration Date: 10/21/23 Refills Remainin Non-VA MULTIVITAMIN/MINERALS CAP/TAB TAKE ONE TABLET BY MOUTH EVERY DAY OUTPT OMEPRAZOLE 20MG EC CAP (Status = Active) TAKE ONE CAPSULE BY MOUTH EVERY DAY Rx# [id number] Last Released: 02/18/23 Qty/Days Supply: Rx Expiration Date: 10/21/23 Refills Remainin Non-VA ROSUVASTATIN TAB TAKE BY MOUTH Non-VA VITAMIN D3 (CHOLECALCIFEROL) TAB TAKE BY MOUTH SUPPLIES PHARMACY TERMS AND POSSIBLE PATIENT ACTIONS INPT = IN inpatient order IV = IN intravenous medication OUTPT = IN outpatient prescription PHARMACY POSSIBLE PATIENT TERMS EXPLANATION ACTIONS -------- - ACTIVE A prescription that can be If you have refills, filled at the local [place] pharmacy. you may request a refill of this prescription from your VA pharmacy. CLINIC A medication you received during If you have questions a visit to a [place] clinic or about this medication emergency department. contact your [place] healthcare team. DISCONTINUED A prescription your provider has Contact your [place] stopped. It is no longer healthcare team if you available to be sent to you or need more of this picked up at the [place] pharmacy medication. window. A prescription which is too old Contact your VA to fill. This does not refer to healthcare team if you the expiration date of the need more of this medication in the container. medication. NON-VA A medication that came from If this medication someplace other than a VA information is pharmacy. This may be a incorrect or out of prescription from either the VA date, please tell your or non VA providers that was VA healthcare team. filled outside the VA. Or, it may be an [id number]-xblnyon (OTC), herbal, dietary supplements or sample medication. ON HOLD An active prescription that will Contact your VA not be filled until pharmacy pharmacy when you need resolves the issue. more of this medication. PARKED An active prescription that will Contact your VA not be filled until the patient pharmacy when you need requests it. this medication. PENDING This prescription order has been If you have been sent to the pharmacy for review instructed to start and is not ready yet. this medication now, contact your VA pharmacy. SUSPENDED An active prescription that is Contact your VA not scheduled to be filled yet. pharmacy if you need You should receive it before this medication now. you run out. ==== Declines printed copy of medication list now. /samir/ River Alan OD CHIEF OF OPTOMETRY Signed: 04/17/2023 08:27 [facility]
--- OUTSIDE RECORDS SUMMARY | 2024-01-20 16:23 | XMS_ITS | Encounter Summary ---
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 Name Role Phone BLAISE MARTINEZ Primary Care [...] SUPPLEMEN ROHITH MEDEX 2 Aug 10, 2018 [id number] [phone] Cresencio GAYTAN PATIENT [place] SUPPLEMEN ROHITH MEDEX 2 Aug 10, 2018 [id number] [phone] Cresencio GAYTAN [place] SUPPLEMEN ROHITH MEDEX 2 Aug 10, 2018 [id number] Cresencio GAYTAN PATIENT [place] SUPPLEMEN ROHITH MEDEX 2 Aug 10, 2018 [id number] Cresencio GAYTAN PATIENT [place] PREFERRED PROVIDER ORGANIZAT ION (PPO) [facility] Apr 10, 2009 [id number] [phone] Cresencio GAYTAN PATIENT [employer] POINT OF SERVICE [facility] Aug 10, 2016 [id number] [phone] Cresencio GAYTAN PATIENT [employer] BEHAVIORAL HEALTH MENTAL HEALTH [facility] Aug 10, 2016 [id number] Cresencio GAYTAN PATIENT [employer] PH[facility] PRESCRIPT ION [facility] Aug 10, 2016 [id number] [phone] Cresencio GAYTAN PATIENT [employer] ([id number]) PRESCRIPT ION BCBSM A June 21, 2010 [place] [id number] Cresencio GAYTAN PATIENT MEDICARE (WNR) MEDICARE (M) PART A Aug 10, 2018 PART A [id number] [phone] Cresencio GAYTAN PATIENT MEDICARE (WNR) MEDICARE (M) PART B Aug 10, 2018 PART B [id number] Cresencio GAYTAN PATIENT MEDICARE (WNR) MEDICARE (M) PART A Aug 10, 2018 PART A [id number] Cresencio GAYTAN PATIENT MEDICARE (WNR) MEDICARE (M) PART B Aug 10, 2018 PART B [id number] [phone] Cresencio GAYTAN PATIENT Selected Encounter This section includes the information on record at [place] for the Encounter. Date/Time Encounter Type Encounter Description Reason Provider Source Apr 25, 2023 08:30 AM CLEAN/INSPECT MAX COMP DENT DENTAL ICD-10-CM K03.6 Deposits [accretions] on teeth BELKIESHA CARD HDA IHE Encounter Template Text not used by [place] Assessments - Encounter Diagnoses This section includes the primary and secondary diagnoses documented for the Encounter. Date/Time Primary/Secondary Diagnosis Diagnosis Name Provider Source Apr 25, 2023 09:37 AM PRIMARY Deposits [accretions] on teeth BELYSHEV,NADEZ HDA [place] [facility] [place] [facility] Plan of Treatment: Future Appointments (+ 6 months) and Future Tests (+/- 45 days) The Plan of Treatment section includes future care activities for the [facility] This section includes future appointments and future orders which are active, pending or scheduled. Future Appointments This section includes appointments that were scheduled to occur 6 months from the date of the Encounter, up to a maximum of 20 appointments. The data comes from all [place] treatment facilities. Appointment Date/Time Appointment Type Appointme nt Facility Name Apr 29, 2023 10:00 AM [facility] Lab Results: +/- 30 days of the encounter This section includes the Chemistry and Hematology Lab Results on record with [place] for the patient. Radiology Reports and Pathology Reports are provided separately, in subsequent sections. Lab Results This section contains the Chemistry/Hematology Results that were resulted 30 days before or 30 daysafter the date of the Encounter. Date/Time Source Result Type Result - Unit Interpretation Reference Range Comment Apr 25, 2023 07:37 AM [facility] VITAMIN D (25-OH) Specimen Type: SERUM No comment entered. Ordering Provider: NAVA MARTINEZ Report Released Date/Time: Apr 16, 2023 11:34 AM Reporting [facility] [address] [facility] [address] Performing Lab: [facility] [address] [facility] [address] VITAMIN D (25-OH) 29 ng/mL 20-50 Apr 25, 2023 07:37 AM [facility] LIPID PANEL FASTING Specimen Type: SERUM No comment entered. Ordering Provider: NAVA MARTINEZ Report Released Date/Time: Apr 16, 2023 11:34 AM Reporting [facility]: [facility] [address] [facility] [address] Performing Lab: [facility] [address] [facility] [address] CHOLESTEROL 138 mg/dL TRIGLYCERIDE 83 mg/dL 0-150 LDL calculated 68 mg/dL 0-129 CHOL/HDL 2.6 HDL CHOLESTEROL 53 mg/dL 40-60 Apr 25, 2023 07:37 AM [facility] BASIC METABOLIC PANEL (fasting) Specimen Type: SERUM No comment entered. Ordering Provider: NAVA MARTINEZ Report Released Date/Time: Apr 16, 2023 11:34 AM Reporting Lab: [address] [address] Performing Lab: [address] [address] UREA NITROGEN 16 mg/dL 7-25 GLUCOSE 99 mg/dL 65-100 SODIUM 140 mmol/L 135-145 POTASSIUM 4.5 mmol/L 3.5-5.0 CHLORIDE 103 mmol/L 100-110 CO2 27 meq/L 20-30 CREATININE, Serum 0.80 mg/dL 0.50-1.40 eGFR(CKD-EPI 2020) >90 mL/min >60 Apr 25, 2023 07:37 AM [facility] LIVER FUNCTION Specimen Type: SERUM No comment entered. Ordering Provider: NAVA MARTINEZ Report Released Date/Time: Apr 16, 2023 11:34 AM Reporting Lab: [address] [address] Performing Lab: [address] [address] PROTEIN,TOTAL 7.3 g/dL 6.0-8.3 ALBUMIN 4.1 g/dL 3.5-5.0 ALKALINE PHOSPHATASE 75 U/L 40-150 AST 21 U/L 5-34 ALT 25 U/L BILIRUBIN, TOTAL 0.3 mg/dL 0.2-1.2 Apr 25, 2023 07:37 AM [facility] CBC AND DIFF (AUTO) Specimen Type: BLOOD No comment entered. Ordering Provider: NAVA MARTINEZ Report Released Date/Time: Apr 16, 2023 11:34 AM Reporting Lab: [address] [address] Performing Lab: [address] [address] WBC 6.22 10*3/uL 4.50-11.00 RBC 4.24 10*6/uL 4.23-5.66 HGB 13.2 g/dL 12.8-17 HCT 38.6 L 39.2-50.4 MCV 91.0 fL 82-99 MCHC 34.2 g/dL 30.8-35.1 PLT 228 10*3/uL 140-360 RDW-CV 13.2 12.0-16.0 [place], Abs 0.62 10*3/uL 0.30-1.10 MCH 31.1 pg 26.2-32.6 Neut % 61.4 43.7-75.8 Lymph % 24.1 14.0-42.3 [place] % 10.0 5.1-13.7 Eos % 3.5 0.4-6.8 [...] took place. Date/Time Current Smoking Status Comment [facility] Jul 19, 2021 10:25 AM [facility]-TOBACCO USER [facility] Tobacco Use History This section includes a history of the smoking, or tobacco-related health factors, that were collected on or before the date of the Encounter. The data comes from the [place] facility where the Encounter took place. 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 [facility] [place] [facility] Jul 19, 2021 10:25 AM VA-TOBACCO USE MED NO [facility] [place] [facility] Jul 19, 2021 10:25 AM VA-TOBACCO USER EVERY DAY [facility] [place] [facility] May 09, 2020 08:00 AM VA-TOBACCO FORMER USER [facility] [place] [facility] May 09, 2020 08:00 AM VA-TOBACCO QUIT < 1 YEAR [facility] [place] [facility] Mar 23, 2019 09:01 AM VA-TOBACCO FORMER USER [facility] [place] [facility] Mar 23, 2019 09:01 AM VA-TOBACCO QUIT 5 TO < 15 YRS [facility] [place] [facility] Jan 19, 2018 08:24 AM VA-TOBACCO NEVER USED [facility] [place] [facility] Jan 17, 2017 08:30 AM QUIT TOBACCO USE > 7 YEARS AGO [facility] [place] [facility] Jan 17, 2017 08:30 AM QUIT TOBACCO USE 1-7 YEARS AGO [facility] [place] [facility] Apr 19, 2016 01:06 PM QUIT TOBACCO USE 1-7 YEARS AGO [facility] [place] [facility] May 05, 2014 08:45 AM QUIT TOBACCO USE 1-7 YEARS AGO [facility] [place] [facility] Apr 08, 2013 08:46 AM QUIT TOBACCO USE 1-7 YEARS AGO . [facility] [place] [facility] Jan 10, 2012 08:23 AM CURRENT SMOKER [facility] [place] [facility] Jan 10, 2012 08:23 AM V1-PT DECLINES REF TO TOBACCO CESS PRGM [facility] [place] [facility] Jan 10, 2012 08:23 AM V1-PT DECLINES TOBACCO CESSATION MEDS [facility] [place] [facility] Jan 10, 2012 08:23 AM V1-PT THINKING ABOUT QUIT TOBACCO USE [facility] [place] [facility] Apr 25, 2011 08:23 AM V1-PT DECLINES REF TO TOBACCO CESS PRGM [facility] [place] [facility] Apr 25, 2011 08:23 AM V1-PT DECLINES TOBACCO CESSATION MEDS [facility] [place] [facility] Apr 25, 2011 08:23 AM V1-PT THINKING ABOUT QUIT TOBACCO USE [facility] Aug 16, 2010 09:12 AM CURRENT SMOKER 1 pk per wk [facility] Aug 16, 2010 09:12 AM V1-PT DECLINES REF TO TOBACCO CESS PRGM [facility] Aug 16, 2010 09:12 AM V1-PT DECLINES TOBACCO CESSATION MEDS [facility] Aug 16, 2010 09:12 AM V1-PT NOT INTERESTED IN QUIT TOBACCO USE [facility] Dec 28, 2009 08:21 AM V1-PT DECLINES REF TO TOBACCO CESS PRGM [facility] Dec 28, 2009 08:21 AM V1-PT THINKING ABOUT QUIT TOBACCO USE [facility] Mar 20, 2009 10:53 AM V1-PT DECLINES REF TO TOBACCO CESS PRGM [facility] Mar 20, 2009 10:53 AM V1-PT DECLINES TOBACCO CESSATION MEDS [facility] Mar 20, 2009 10:53 AM V1-PT NOT INTERESTED IN QUIT TOBACCO USE [facility] Mar 13, 2009 09:37 AM CURRENT SMOKER just when he is drinking. He can't stand it otherwise. [facility] Advance Directives: All historical and [...] Jun 08, 2014 ADVANCE DIRECTIVE TARYN VILLATORO [facility] Encounter Notes: All associated encounter notes This section contains the clinical notes associated to the Encounter. Date/Time Encounter Note(s) Provider Source Apr 25, 2023 09:33 AM DENTISTRY NOTE: LOCAL TITLE: DENTAL NOTE STANDARD TITLE: DENTISTRY NOTE DATE OF NOTE: APR 25, 2023@09:33 ENTRY DATE: APR 25, 2023@09:37:44 AUTHOR: MARCUS YI EXP COSIGNER: URGENCY: STATUS: COMPLETED Patient Name: SOFIA GAYTAN, : 1955, Age: 67 Visit: S: Apr 25, 2023@08:30 CWM/NO/DENTAL/RDH2 AM. Primary PCE Diagnosis: K03.6 (Deposits [accretions] on teeth). Dental Category: 15-OPC, Class IV. Treatment Status: Maintenance. Completed Care: (D1110) DENTAL PROPHYLAXIS ADULT. DX: K03.6 Deposits [Accretions] on Teeth (D1206) TOPICAL FLUORIDE VARNISH. DX: K03.6 Deposits [Accretions] on Teeth (D1330) ORAL HYGIENE INSTRUCTION. DX: K03.6 Deposits [Accretions] on Teeth (D9994) CASE MGMT-ORAL HEALTH LIT. DX: K03.6 Deposits [Accretions] on Teeth (D9932) CLEAN/INSPECT MAX COMP DENT. DX: K03.6 Deposits [Accretions] on Teeth Periodontal Screening/Recording (PSR): X-X-X - - - X-3-X TIME OUT/Safety goals were verified immediately prior to the procedure. (Correct patient, procedure, site, position) Full name and date used. STERILIZATION MONITOR IN INSTRUMENT PACK CHECKED AND CONFIRMED CC: NONE PAST MEDICAL HISTORY: Reviewed, no contraindications for treatment PT HAD KNEE REPLACMENT IN APRIL 2022 WAS TOLD TO Take premed Rescheduled prophy due to Surgeons generally recommend patients wait 3 to 6 months after joint replacement before seeking dental treatment. LAST RADIOGRAPHS: PANO 11/29 BWX 05/27 Pa's 07/02 NEW RADIOGRAPHS: not due SOFT TISSUE SCREENING: no abnormalities noted EXAMINATION: not due ORAL HYGIENE ASSESSMENT: plaque light stain light REVIEWED ORAL HEALTH REPORT: CARIES RISK: high GUM DISEASE: moderate ORAL CANCER RISK: high DENTAL TREATMENT PROVIDED: PROPHYLAXIS: hand scaling, mx dentur cleaned mauritian CLEAN/INSPECT MAX COMP DENT. TOPICAL FLUORIDE APPLICATION - [place] pre post procedural rinse 30 seconds ORAL HYGIENE INSTRUCTIONS GIVEN TO PATIENT: review cervical brushing technique recomended 2 times a day, review flossing technique 2 times a day. Explain importance of daily plaque removal. Discuss possible cause of recession. PT HAD KNEE REPLACMENT IN APRIL 2022 WAS TOLD TO TAKE PREMED Pt said he will take a premed as soon as he goes home 4 tab of amox 500 mg each Discuss importance of premedication pt understood DISPOSITION: 6 MONTHS RECARE Oral Health Assessment Findings: Plaque Index: 1 - Slight Xerostomia: 1 - Slight Caries Risk: 3 - High Oral Hygiene: 1 - Good - - - - - - - - - - - - - - - - - - - - - - - - - - - - - - Nv: 6 mo recall dannielle gomez 75 min /samir/ MARCUS YI RDH [facility], DENTAL SERVICE Signed: 04/25/2023 09:37 MARCUS YI [facility]
--- OUTSIDE RECORDS SUMMARY | 2024-01-20 16:23 | XMS_ITS | Encounter Summary ---
Author Name [facility] Organization [facility] Address [address] [place] [id number] Care Team Providers Care Operations/Dispatch Name Role Phone DAO CASTRO Primary Care Provider Unavail able Insurance Providers: [...] SUPPLEMEN ROHITH MEDEX 2 Aug 10, 2018 [id number] Cresencio GAYTAN [place]IENT [place] SUPPLEMEN ROHITH MEDEX 2 Aug 10, 2018 [id number] Cresencio GAYTAN [place] SUPPLEMEN ROHITH MEDEX 2 Aug 10, 2018 [id number] Cresencio GAYTAN PATIENT [place] SUPPLEMEN ROHITH MEDEX 2 Aug 10, 2018 [id number] Cresencio GAYTAN PATIENT [place] PREFERRED PROVIDER ORGANIZAT ION (PPO) [facility] Apr 10, 2009 [id number] [phone] Cresencio GAYTAN PATIENT [employer] POINT OF SERVICE [facility] Aug 10, 2016 [id number] [phone] Cresencio GAYTAN PATIENT CIGNA BEHAVIORAL HEALTH MENTAL HEALTH [facility] Aug 10, 2016 [id number] Cresencio GAYTAN PATIENT CIGNA PHARMACY PRESCRIPT ION [facility] Aug 10, 2016 [id number] [phone] Cresencio GAYTAN PATIENT [employer] ([id number]) PRESCRIPT ION BCBSM A June 21, 2010 MASA [id number] Cresencio GAYTAN PATIENT MEDICARE (WNR) MEDICARE () PART A Aug 10, 2018 PART A [id number] Cresencio GAYTAN PATIENT MEDICARE (WNR) MEDICARE () PART B Aug 10, 2018 PART B [id number] Cresencio GAYTAN PATIENT MEDICARE (WNR) MEDICARE (M) PART A Aug 10, 2018 PART A [id number] Cresencio GAYTAN PATIENT MEDICARE (WNR) MEDICARE () PART B Aug 10, 2018 PART B [id number] [phone] Cresencio GAYTAN PATIENT Selected Encounter This section includes the information on record at MD for the Encounter. Date/Time Encounter Type Encounter Description Reason Provider Source Apr 29, 2023 10:00 AM OFFICE O/P EST MOD 30 MIN PRIMARY CARE/MEDICINE ICD-10-CM Z77.29 Contact with and exposure to other hazardous substances PEYTON CASTRO IHE Encounter Template Text not used by MD Assessments - Encounter Diagnoses This section includes the primary and secondary diagnoses documented for the Encounter. Date/Time Primary/Secondary Diagnosis Diagnosis Name Provider Source May 13, 2023 01:46 PM PRIMARY Contact with and exposure to other hazardous substances NAVA CASTRO MD [facility] May 13, 2023 01:46 PM SECONDARY Essential (primary) hypertension NAVA CASTRO [facility] Lab Results: +/- 30 days of the encounter This section includes the Chemistry and Hematology Lab Results on record with MD for the patient. Radiology Reports and Pathology Reports are provided separately, in subsequent sections. Lab Results This section contains the Chemistry/Hematology Results that were resulted 30 days before or 30 daysafter the date of the Encounter. Date/Time Source Result Type Result - Unit Interpretation Reference Range Comment Apr 25, 2023 07:37 AM [facility] VITAMIN D (25-OH) Specimen Type: SERUM No comment entered. Ordering Provider: NAVA CASTRO Report Released Date/Time: Apr 16, 2023 11:34 AM Reporting Lab: [address] [address] Performing Lab: [address] [address] VITAMIN D (25-OH) 29 ng/mL 20-50 Apr 25, 2023 07:37 AM [facility] LIPID PANEL FASTING Specimen Type: SERUM No comment entered. Ordering Provider: NAVA CASTRO Report Released Date/Time: Apr 16, 2023 11:34 AM Reporting Lab: [address] [address] Performing Lab: [address] [address] CHOLESTEROL 138 mg/dL TRIGLYCERIDE 83 mg/dL 0-150 LDL calculated 68 mg/dL 0-129 CHOL/HDL 2.6 HDL CHOLESTEROL 53 mg/dL 40-60 Apr 25, 2023 07:37 AM [facility] LIVER FUNCTION Specimen Type: SERUM No comment entered. Ordering Provider: NAVA CASTRO Report Released Date/Time: Apr 16, 2023 11:34 AM Reporting Lab: [address] [address] Performing Lab: [address] [address] PROTEIN,TOTAL 7.3 g/dL 6.0-8.3 ALBUMIN 4.1 g/dL 3.5-5.0 ALKALINE PHOSPHATASE 75 U/L 40-150 AST 21 U/L 5-34 ALT 25 U/L BILIRUBIN, TOTAL 0.3 mg/dL 0.2-1.2 Apr 25, 2023 07:37 AM [facility] BASIC METABOLIC PANEL (fasting) Specimen Type: SERUM No comment entered. Ordering Provider: NAVA CASTRO Report Released Date/Time: Apr 16, 2023 11:34 AM Reporting Lab: [address] [address] Performing Lab: [address] [address] UREA NITROGEN 16 mg/dL 7-25 GLUCOSE 99 mg/dL 65-100 SODIUM 140 mmol/L 135-145 POTASSIUM 4.5 mmol/L 3.5-5.0 CHLORIDE 103 mmol/L 100-110 CO2 27 meq/L 20-30 CREATININE, Serum 0.80 mg/dL 0.50-1.40 eGFR(CKD-EPI 2020) >90 mL/min >60 Apr 25, 2023 07:37 AM [facility] CBC AND DIFF (AUTO) Specimen Type: BLOOD No comment entered. Ordering Provider: NAVA CASTRO Report Released Date/Time: Apr 16, 2023 11:34 AM Reporting Lab: [facility] [address] [facility] [address] Performing Lab: [address] [address] WBC 6.22 10*3/uL 4.50-11.00 RBC 4.24 10*6/uL 4.23-5.66 HGB 13.2 g/dL 12.8-17 HCT 38.6 L 39.2-50.4 MCV 91.0 fL 82-99 MCHC 34.2 g/dL 30.8-35.1 PLT 228 10*3/uL 140-360 RDW-CV 13.2 12.0-16.0 [place], Abs 0.62 10*3/uL 0.30-1.10 MCH 31.1 pg 26.2-32.6 Neut % 61.4 43.7-75.8 Lymph % 24.1 14.0-42.3 [place] % 10.0 5.1-13.7 Eos % 3.5 0.4-6.8 Baso % 0.8 0.1-2.0 Neut, Abs 3.82 10*3/uL 2.20-7.60 Lymph, Abs 1.50 10*3/uL 1.00-3.20 Eos, Abs 0.22 10*3/uL 0.03-0.44 Baso, Abs 0.05 10*3/uL 0.01-0.13 Immature Gran % 0.2 0.0-0.7 Immature Gran, Abs 0.01 10*3/uL 0.00-0.06 Vital Signs: All taken on the encounter date This section contains inpatient and outpatient Vital Signs collected on the date of the Encounter. Date/Time Temperature Pulse Blood Pressure Respiratory Rate SP02 Pain Height Weight Body Mass Index Source Apr 29, 2023 09:52 AM 98.4 88 130/80 16 98 5 302 39 [facility] Social History: Smoking Status (Most current) and Tobacco Use (All prior to encounter date) This section includes the most current, and the historical, smoking and tobacco- related health factors from the MD facility where the Encounter took place. Current Smoking Status This section includes the most current smoking, or tobacco-related health factor, from the MD facility where the Encounter took place. Date/Time Current Smoking Status Comment Corrina barr Apr 29, 2023 10:00 AM VA-TOBACCO USER EVERY DAY [facility] Tobacco Use History This section includes a history of the smoking, or tobacco-related health factors, that were collected on or before the date of the Encounter. The data comes from the MD facility where the Encounter took place. Date/Time Smoking Status/Tobac co Use Comment Facility Apr 29, 2023 10:00 AM VA-TOBACCO USE ADVICE [facility] Apr 29, 2023 10:00 AM [facility]BACCO [facility] Apr 29, 2023 10:00 AM VA-TOBACCO USE MED NO [facility] Apr 29, 2023 10:00 AM VA-TOBACCO USE WI 30 MIN OF WAKEUP [facility] [place] [facility] Apr 29, 2023 10:00 AM VA-TOBACCO USER EVERY DAY [facility] [place] [facility] Jul 19, 2021 10:25 AM VA-TOBACCO DOESNT USE WI 30 MIN WAKEUP [facility] [place] [facility] Jul 19, 2021 10:25 AM VA-TOBACCO USE 30 YEARS OR MORE [facility] [place] [facility] Jul 19, 2021 10:25 AM VA-TOBACCO USE ADVICE MD [facility] [place] [facility] Jul 19, 2021 10:25 AM VA-TOBACCO USE CABLE PULLER NO MD [facility] [place] [facility] Jul 19, 2021 10:25 AM VA-TOBACCO USE MED NO [facility] [place] [facility] Jul 19, 2021 10:25 AM VA-TOBACCO USER EVERY DAY MD [facility] [place] [facility] May 09, 2020 08:00 AM VA-TOBACCO FORMER USER MD [facility] [place] [facility] May 09, 2020 08:00 AM VA-TOBACCO QUIT < 1 YEAR MD [facility] [place] [facility] Mar 23, 2019 09:01 AM VA-TOBACCO FORMER USER [facility] [place] [facility] Mar 23, 2019 09:01 AM VA-TOBACCO QUIT 5 TO < 15 YRS [facility] [place] [facility] Jan 19, 2018 08:24 AM VA-TOBACCO NEVER USED [facility] [place] [facility] Jan 17, 2017 08:30 AM QUIT TOBACCO USE > 7 YEARS AGO [facility] [place] [facility] Jan 17, 2017 08:30 AM QUIT TOBACCO USE 1-7 YEARS AGO [facility] [place] [facility] Apr 19, 2016 01:06 PM QUIT TOBACCO USE 1-7 YEARS AGO [facility] [place] [facility] May 05, 2014 08:45 AM QUIT TOBACCO USE 1-7 YEARS AGO [facility] [place] [facility] Apr 08, 2013 08:46 AM QUIT TOBACCO USE 1-7 YEARS AGO . [facility] [place] [facility] Jan 10, 2012 08:23 AM CURRENT SMOKER [facility] [place] [facility] Jan 10, 2012 08:23 AM V1-PT DECLINES REF TO TOBACCO CESS PRGM [facility] [place] [facility] Jan 10, 2012 08:23 AM V1-PT DECLINES TOBACCO CESSATION MEDS [facility] [place] [facility] Jan 10, 2012 08:23 AM V1-PT THINKING ABOUT QUIT TOBACCO USE [facility] [place] [facility] Apr 25, 2011 08:23 AM V1-PT DECLINES REF TO TOBACCO CESS PRGM [facility] [place] [facility] Apr 25, 2011 08:23 AM V1-PT DECLINES TOBACCO CESSATION MEDS [facility] Apr 25, 2011 08:23 AM V1-PT THINKING ABOUT QUIT TOBACCO USE [facility] [place] [facility] Aug 16, 2010 09:12 AM CURRENT SMOKER 1 pk per wk [facility] Aug 16, 2010 09:12 AM V1-PT DECLINES REF TO TOBACCO CESS PRGM [facility] Aug 16, 2010 09:12 AM V1-PT DECLINES TOBACCO CESSATION MEDS [facility] Aug 16, 2010 09:12 AM V1-PT NOT INTERESTED IN QUIT TOBACCO USE [facility] [place] [facility] Dec 28, 2009 08:21 AM V1-PT DECLINES REF TO TOBACCO CESS PRGM [facility] Dec 28, 2009 08:21 AM V1-PT THINKING ABOUT QUIT TOBACCO USE [facility] [place] [facility] Mar 20, 2009 10:53 AM V1-PT DECLINES REF TO TOBACCO CESS PRGM [facility] [place] [facility] Mar 20, 2009 10:53 AM V1-PT DECLINES TOBACCO CESSATION MEDS [facility] [place] [facility] Mar 20, 2009 10:53 AM V1-PT NOT INTERESTED IN QUIT TOBACCO USE [facility] [place] [facility] Mar 13, 2009 09:37 AM CURRENT SMOKER just when he is drinking. He can't stand it otherwise. [facility] Advance Directives: All historical and current Section Date Range: From patient's date of to the date document was created. This section includes ALL of a patient's completed or amended MD Advance and Rescinded Directives. The entries below indicate that a directive exists for the patient, but an actual copy is not included with this document. The data comes from all MD facilities. Date Advance Directives Provider Source Jun 08, 2014 ADVANCE DIRECTIVE TARYN VILLATORO MD CNT [facility] Encounter Notes: All associated encounter notes This section contains the clinical notes associated to the Encounter. Date/Time Encounter Note(s) Provider Source Apr 29, 2023 10:04 AM PHYSICIAN FORMSTONE FITTER NOTE: LOCAL TITLE: PA NOTE STANDARD TITLE: PHYSICIAN FORMSTONE FITTER NOTE DATE OF NOTE: APR 29, 2023@10:04 ENTRY DATE: APR 29, 2023@10:05:02 AUTHOR: DAO CASTRO COSIGNER: URGENCY: STATUS: COMPLETED NISH NOTE Has ADDENDA CC/HPI/A/P: 67 year old MALE here in follow-up for; htn, stable on meds. FH of colon cancer, below. Shared care clouds all of his care. Review of systems: Patient reports no changes from Usual State [facility] Health/[facility], in meds or any admissions. Active problems - Computerized Problem List is the source for the followin. AF- Atrial Fibrillation ([facility] [id number]) 2. Abdominal aortic aneurysm 3.0 to 5.5 centimeters in male 3. Family history of colorectal cancer 4. History of total hip arthroplasty Left THR, [place] [facility]. 5. Hernia, Ventral 6. PTSD 7. Hand Injuries * 8. Counseling on Substance Use and Abuse 9. Alcohol Dependence 10. Hearing loss * 11. Tinnitus * 12. Obesity * 13. Sleep Apnea 14. Gastroesophageal Reflux Disorder * 15. Hypertension * 16. Urgency of urination SERVICE CONNECTED % - 100 VA and Non VA meds were reconciled with the patient who left with a corrected copy. See medication page for details. Active and Recently Outpatient Medications (excluding Supplies): Active Outpatient Medications Status 1) AMOXICILLIN 500MG CAP TAKE FOUR CAPSULES BY MOUTH ONE ACTIVE TIME TAKE 1 HOUR PRIOR TO DENTAL APPOINTMENT 2) APIXABAN 5MG TAB TAKE ONE TABLET BY MOUTH TWICE DAILY ACTIVE 3) CARBOXYMETHYLCELLULOSE NA 0.5% OPH SOLN INSTILL 1 ACTIVE DROP INTO EACH EYE FOUR TIMES DAILY NEEDED FOR DRY EYE 4) DRONEDARONE 400MG TAB TAKE ONE TABLET BY MOUTH TWICE ACTIVE DAILY 5) LISINOPRIL 10MG TAB TAKE ONE TABLET BY MOUTH ONCE ACTIVE DAILY TO CONTROL BLOOD PRESSURE 6) OMEPRAZOLE 20MG EC CAP TAKE ONE CAPSULE BY MOUTH ACTIVE EVERY DAY Active Non-VA Medications Status 1) Non-VA FISH OIL 500MG DHA/EPA CAP,ORAL BY MOUTH ACTIVE 2) Non-VA MULTIVITAMIN/MINERALS CAP/TAB 1 TABLET BY ACTIVE MOUTH EVERY DAY 3) Non-VA ROSUVASTATIN TAB BY MOUTH ACTIVE 4) Non-VA VITAMIN D3 (CHOLECALCIFEROL) TAB BY MOUTH ACTIVE 10 Total Medications 98.4 F [36.9 C] (04/29/2023 09:52) 88 (04/29/2023 09:52) 16 (04/29/2023 09:52) 130/80 (04/29/2023 09:52) 5 (04/29/2023 09:52) Unavailable (07/02/2022 08:26) 302 lb [136.98 kg] (04/29/2023 09:52) BMI: Neuro: Alert and oriented times three, grossly nonfocal, nasolabial folds intact. Recent labs reviewed with patient today: yes Advance Directive Screen MH AD: Patient has an Advance Directive on file at this [facility]. No updates are needed at this time. The patient received education about Advance Directives and written notification of his/her rights. 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 Printed information was offered and provided if desired. /caregiver has no health or medical concerns related to their concern of environmental exposure. No questions at this time /caregiver was informed of local points of contact. Contact information for local resources: Benefits/Claim for Disability Compensation Questions:National VBA MD Healthcare Enrollment: [facility] Eligibility direct dialed at [phone] Registry: [facility] Health Coordinator ext [phone] The following connections were provided to the /caregiver: No connections needed at this time Assess Statin Use - Lipids (CVD/DM): The patient is still taking the NON-VA statin medication as documented. BMI>30/>24.99 High Risk: At this visit, the health risks of obesity were reviewed and discussed with the , and the benefits of a weight management treatment program, such as [facility]! was discussed and offered to the [place]. After discussing the health risks of being overweight or obese and providing information about available weight management treatment, and offering a referral to [facility] or another weight management treatment program outside the [facility], the patient DECLINES REFERRAL to [facility] or any other weight management treatment program at this time. FH of colon cancer, He reports a normal colonoscsopy about 2 years ago at [place]. I do not find in [place]. Please check and update remdinder, probably a 5 year recall. Despite asking 3 times, he does not answer IF you are due, should I order so if he is due now, notify him. /samir/ Dao Castro PA-C STAFF PHYSICIAN FORMSTONE FITTER Signed: 04/29/2023 10:20 Receipt Acknowledged By: 04/30/2023 08:56 /samir/ DOTTIE CHILEL RN REGISTERED NURSE 04/30/2023 ADDENDUM STATUS: COMPLETED records requested. /quinton CHILEL RN REGISTERED NURSE Signed: 04/30/2023 08:56 DAO CASTRO MD [facility] Apr 29, 2023 09:54 AM PREVENTIVE MEDICINE NURSING NOTE: LOCAL TITLE: CLINICAL REMINDERS/NURSING STANDARD TITLE: PREVENTIVE MEDICINE NURSING NOTE DATE OF NOTE: APR 29, 2023@09:54 ENTRY DATE: APR 29, 2023@09:55:08 AUTHOR: CAROLYNN GOMEZ: URGENCY: STATUS: COMPLETED Homelessness/Food Insecurity Screen: In the past 2 months, have you been living in stable housing that you own, rent, or stay in as part of a household? Yes - Living in stable housing. Are you worried or concerned that in the next 2 months you may NOT have stable housing that you own, rent, or stay in as part of a household? No - Not worried about housing near future The [place] reports the following: Within the past 12 months, you worried whether your food would run out before you got money to buy more. Never true Within the past 12 months, the food you bought just didn't last and you didn't have money to get more. Never true Depression Screening: Perform PHQ-2 A PHQ-2 screen was performed. The score was 0 which is a negative screen for depression. Over the past two weeks, how often have you been bothered by the following problems? 1. Little interest or pleasure in doing things Not at all 2. Feeling down, depressed, or hopeless Not at all Tobacco Use Screening: The patient uses tobacco every day. The patient uses tobacco within 30 minutes of waking up. The patient has been smoking or using tobacco for thirty years or more. Patient was advised to quit smoking and/or using tobacco. Discussion with patient included: - Quitting smoking or tobacco use is one of the most important things you can do to protect and improve your health and MD has the resources to support you. - Set a quit date when you are ready to quit. - Get support from your family and friends. - Review any past quit attempts- What helped? What didn't? - On the day you plan to quit, get rid of all cigarettes and tobacco products from your home, car or work. - Using a combination of behavioral counseling or other support strategies and FDA-approved cessation medications is the most effective way to ensure success in quitting. Patient was offered Behavioral Counseling and other support strategies to assist with quitting. Discussion with patient included: - Behavioral counseling or other support strategies greatly increases your chances of successfully quitting smoking or tobacco use by helping you develop a quit plan and providing support and other strategies to make behavioral changes to help you quit. - MD has a number of behavioral counseling options to help you with quitting, including: * Provide information about the facility smoking or tobacco use treatment options or clinics * MD's national quitline, 5-169-JIBL-VET, with counseling available Friday-Friday The patient was not interested in receiving additional information about how to use the treatment options discussed. Patient was offered FDA-approved cessation medications. Discussion with patient included: - Medications for Nicotine replacement therapy such as the patch, gum or lozenge, and other medications such as varenicline or bupropion, can play an important role in the initial weeks and months after you quit smoking or tobacco use. - Medications help with cravings and withdrawal symptoms and they greatly increase your chances of successfully quitting. The patient was not interested in a prescription for tobacco cessation medications. Alcohol Use Screen (AUDIT-C): Alcohol Screen: SCREEN FOR ALCOHOL (AUDIT-C) An alcohol screening test (AUDIT-C) was negative (score=0). 1. How often did you have a drink containing alcohol in the past year? Consider a drink to be a 12 ounce can or bottle of regular beer, 8 ounces of malt liquor, a 5 ounce glass of table wine, or a 1.5 ounce shot of liquor (like scotch, gin, or vodka). Never 2. How many drinks containing alcohol did you have on a typical day when you were drinking in the past year? Response not required due to responses to other questions. 3. How often did you have six or more drinks on one occasion in the past year? Response not required due to responses to other questions. Influenza Immunization: The patient has received the seasonal influenza vaccine for the current season at another location. Documented: INFLUENZA, UNSPECIFIED FORMULATION Historical Date Administered: Nov 28, 2022 Series: Booster Outside Location: Outside Healthcare Provider Information Source: FROM OTHER PROVIDER /samir/ CAROLYNN GOMEZ LPN Signed: 04/29/2023 09:59 KINA GOMEZ MD [facility] [place] [facility]
--- OUTSIDE RECORDS SUMMARY | 2024-01-20 16:23 | XMS_ITS | Encounter Summary ---
Author Name [facility] Organization [facility] Address [address] [place] [place] [id number] Care Team Providers Care Sausage Grinder Name Role Phone DAO CASTRO Primary Care [...] SUPPLEMEN ROHITH MEDEX 2 Aug 10, 2018 [id number] [phone] Cresencio GAYTAN PATIENT [place] SUPPLEMEN ROHITH MEDEX 2 Aug 10, 2018 [id number] Cresencio GAYTAN [place] SUPPLEMEN ROHITH MEDEX 2 Aug 10, 2018 [id number] Cresencio GAYTAN PATIENT [place] MED[place] SUPPLEMEN ROHITH MEDEX 2 Aug 10, 2018 [id number] [phone] Cresencio GAYTAN PATIENT [place] PREFERRED PROVIDER ORGANIZAT ION (PPO) [facility] Apr 10, 2009 [id number] Cresencio GAYTAN PATIENT [employer] POINT OF SERVICE [facility] Aug 10, 2016 [id number] [phone] Cresencio GAYTAN PATIENT [employer] [facility]IORAL HE[facility] Aug 10, 2016 [id number] Cresencio GAYTAN PATIENT [employer] PHARMAC[facility] PRESCRIPT ION [facility] Aug 10, 2016 [id number] [phone] Cresencio GAYTAN PATIENT [employer] ([id number]) PRESCRIPT ION BCBSM A June 21, 2010 [id number] [id number] [phone] Cresencio GAYTAN PATIENT MEDICARE (WNR) MEDICARE (M) PART B Aug 10, 2018 PART B [id number] Cresencio GAYTAN PATIENT MEDICARE (WNR) MEDICARE (M) PART A Aug 10, 2018 PART A [id number] [phone] Cresencio GAYTAN PATIENT MEDICARE (WNR) MEDICARE (M) PART A Aug 10, 2018 PART A [id number] Cresencio GAYTAN PATIENT MEDICARE (WNR) MEDICARE (M) PART B Aug 10, 2018 PART B [id number] [phone] Cresencio GAYTAN PATIENT Selected Encounter This section includes the information on record at DC for the Encounter. Date/Time Encounter Type Encounter Description Reason Pro vider Source Oct 27, 2023 08:43 AM Outpatient Encounter ADMIN PAT ACTIVTIES (MASNONCT) IHE Encounter Template Text not used by DC Plan of Treatment: Future Appointments (+ 6 months) and Future Tests (+/- 45 days) The Plan of Treatment section includes future care activities for the patient from all DC treatmentfacilities. This section includes future appointments and future orders which are active, pending or scheduled. Future Appointments This section includes appointments that were scheduled to occur 6 months from the date of the Encounter, up to a maximum of 20 appointments. The data comes from all [place] treatment facilities. Appointment Date/Time Appointment Type Appointme nt Facility Name Feb 20, 2024 08:30 AM AMBULATORY - NONE [facility] [place] [facility] Apr 22, 2024 07:30 AM AMBULATORY - MEDICINE [facility] [place] [facility] Social History: Smoking Status (Most current) and Tobacco Use (All prior to encounter date) This section includes the most current, and the historical, smoking and tobacco- related health factors from the DC facility where the Encounter took place. Current Smoking Status This section includes the most current smoking, or tobacco-related health factor, from the [place] facility where the Encounter took place. Date/Time Current Smoking Status Comment Facil it Apr 29, 2023 10:00 AM VA-TOBACCO USER EVERY DAY [facility] [place] [facility] Tobacco Use History This section includes a history of the smoking, or tobacco-related health factors, that were collected on or before the date of the Encounter. The data comes from the DC facility where the Encounter took place. Date/Time Smoking Status/Tobac co Use Comment [facility] Apr 29, 2023 10:00 AM VA-TOBACCO USE ADVICE [facility] [place] [facility] Apr 29, 2023 10:00 AM VA-TOBACCO USE RED HAT OPEN STACK ADMINISTRATOR NO [facility] [place] [facility] Apr 29, 2023 10:00 AM VA-TOBACCO USE MED NO [facility] [place] [facility] Apr 29, 2023 10:00 AM VA-TOBACCO USE WI 30 MIN OF WAKEUP [facility] [place] [facility] Apr 29, 2023 10:00 AM VA-TOBACCO USER EVERY DAY [facility] [place] [facility] Jul 19, 2021 10:25 AM VA-TOBACCO DOESNT USE WI 30 MIN WAKEUP [facility] [place] [facility] Jul 19, 2021 10:25 AM VA-TOBACCO USE 30 YEARS OR MORE [facility] [place] [facility] Jul 19, 2021 10:25 AM VA-TOBACCO USE ADVICE [facility] [place] [facility] Jul 19, 2021 10:25 AM VA-TOBACCO USE RED HAT OPEN STACK ADMINISTRATOR NO [facility] [place] [facility] Jul 19, 2021 10:25 AM VA-TOBACCO USE MED NO [facility] [place] [facility] Jul 19, 2021 10:25 AM VA-TOBACCO USER EVERY DAY [facility] [place] [facility] May 09, 2020 08:00 AM VA-TOBACCO FORMER USER [facility] [place] [facility] May 09, 2020 08:00 AM VA-TOBACCO QUIT < 1 YEAR [facility] [place] [facility] Mar 23, 2019 09:01 AM VA-TOBACCO FORMER USER [facility] [place] [facility] Mar 23, 2019 09:01 AM VA-TOBACCO QUIT 5 TO < 15 YRS [facility] [place] [facility] Jan 19, 2018 08:24 AM VA-TOBACCO NEVER USED [facility] [place] [facility] Jan 17, 2017 08:30 AM QUIT TOBACCO USE > 7 YEARS AGO [facility] [place] [facility] Jan 17, 2017 08:30 AM QUIT TOBACCO USE 1-7 YEARS AGO [facility] [place] [facility] Apr 19, 2016 01:06 PM QUIT TOBACCO USE 1-7 YEARS AGO [facility] [place] [facility] May 05, 2014 08:45 AM QUIT TOBACCO USE 1-7 YEARS AGO [facility] [place] [facility] Apr 08, 2013 08:46 AM QUIT TOBACCO USE 1-7 YEARS AGO . [facility] [place] [facility] Jan 10, 2012 08:23 AM CURRENT SMOKER [facility] [place] [facility] Jan 10, 2012 08:23 AM V1-PT DECLINES REF TO TOBACCO CESS PRGM [facility] [place] [facility] Jan 10, 2012 08:23 AM V1-PT DECLINES TOBACCO CESSATION MEDS [facility] [place] [facility] Jan 10, 2012 08:23 AM V1-PT THINKING ABOUT QUIT TOBACCO USE [facility] [place] [facility] Apr 25, 2011 08:23 AM V1-PT DECLINES REF TO TOBACCO CESS PRGM [facility] [place] [facility] Apr 25, 2011 08:23 AM V1-PT DECLINES TOBACCO CESSATION MEDS [facility] [place] [facility] Apr 25, 2011 08:23 AM V1-PT THINKING ABOUT QUIT TOBACCO USE [facility] [place] [facility] Aug 16, 2010 09:12 AM CURRENT SMOKER 1 pk per wk [facility] [place] Aug 16, 2010 09:12 AM V1-PT DECLINES REF TO TOBACCO CESS PRGM [facility] Aug 16, 2010 09:12 AM V1-PT DECLINES TOBACCO CESSATION MEDS [facility] Aug 16, 2010 09:12 AM V1-PT NOT INTERESTED IN QUIT TOBACCO USE [facility] Dec 28, 2009 08:21 AM V1-PT DECLINES RE[facility] Dec 28, 2009 08:21 AM V1-PT THINKING ABOUT QUIT TOBACCO USE [facility] Mar 20, 2009 10:53 AM V1-PT DECLINES REF TO TOBACCO CESS PRGM [facility] Mar 20, 2009 10:53 AM V1-PT DECLINES TOBACCO CESSATION MEDS [facility] Mar 20, 2009 10:53 AM V1-PT NOT INTERESTED IN QUIT TOBACCO USE [facility] Mar 13, 2009 09:37 AM CURRENT SMOKER just when he is drinking. He can't stand it otherwise. [facility] Advance Directives: All historical and current Section Date Range: From patient's date of to the date document was created. This section includes ALL of a patient's completed or amended DC Advance and Rescinded Directives. The entries below indicate that a directive exists for the patient, but an actual copy is not included with this document. The data comes from all [place] facilities. Date Advance Directives Provider Source Jun 08, 2014 ADVANCE DIRECTIVE TARYN VILLATORO [facility] Encounter Notes: All associated encounter notes This section contains the clinical notes associated to the Encounter. Date/Time Encounter Note(s) Provider Source Oct 27, 2023 08:43 AM MEDICATION MGT NOT E: [facility] TITLE: MEDICATION RENEWAL STANDARD TITLE: MEDICATION MGT NOTE DATE OF NOTE: OCT 27, 2023@08:43 ENTRY DATE: OCT 27, 2023@08:43:39 AUTHOR: BRIAN FREEMAN EXP COSIGNER: URGENCY: STATUS: COMPLETED Hello we have a req medication renewal for mailing please please renew if appropriate Active Outpatient Medications (including Supplies): Active Outpatient Medications Status = DRONEDARONE 400MG TAB 180 E> 10-20 0 90 LISINOPRIL 10MG TAB 90 E> 10-20 0 90 OMEPRAZOLE 20MG EC CAP 90 E> 10-20 0 90 /es/ BRIAN FREEMAN 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
--- OUTSIDE RECORDS SUMMARY | 2024-01-20 16:23 | XMS_ITS | Patient Health Record ---
Author Organization [facility] Address [address] [place] [address] Care Team Providers Care Corporate Vp Advertising & Online Name Role Phone Vijay Biggs Primary Care Provider Unav ailable Black, Karime Unavailable [phone] Allergies Allergen (clinical drug ingredient) Drug/Non Drug Allergy documented on EMR Reaction Allergy Type Onset Date Status morphine Morphine freak out Drug Allergy Active Reason For Referral No Information Medications Medication SIG (Take, Route, Frequency, Duration) Notes [...] with meals Orally Twice a day Active Social History Tobacco Use: Social History Observation Description Date Details (start date - stop date) Former Smoker NA - NA Tobacco Use/Smoking Question Answer Notes Are you a: former smoker Alcohol Screen Question Answer Notes Did you have a drink containing alcohol in the p ast year? No Points 0 Interpretation Negative Tobacco use other than smoking: Question Answer Notes Are you an other tobacco user? No Problems No Known Problems Plan Of Treatment Pending Test Test Name Order Date X ray : Foot, left 3V 06/20/2011 [id number] NAIL, 1-5 11/19/2012 [id number] NAIL, 1-5 11/18/[id number] TENDON SHEATH/LIGAMENT 1 50,[id number] TENDON SHEATH/LIGAMENT 0 06/20/[id number] TENDON SHEATH/LIGAMENT 1 Insurance Providers Payer Name Payer Address Payer Phone Subscriber Number Group Number Insured Name Patient Relationship to Insured Coverage Start Date Coverage End Date [employer] [address] [place] [address] [id number] Marv Minaya Self - patient is the insured Medical (General) History Medical History History ICD Code neuropathy reflux mumps measles high blood pressure chicken pox back, hip, knee pain Arthritis Hypertension Heart Disease measles mumps chicken Pox bone implants and screws Surgical History Surgery Date(Month/Year) knee surgery neck surgery Hip replacement 09/2015 ablation 2013 Hospitalization History Reason Date(Month/Year) [facility], 3 days, CHF 04/2012
--- OUTSIDE RECORDS SUMMARY | 2024-01-20 16:23 | XMS_ITS ---
Author Name [facility] [place] Address [address] [place] [id number] Care Team Providers Care Pilot Manager Name Role Phone BLAISE MARTINEZ Primary Care [...] SUPPLEMEN ROHITH MEDEX 2 Aug 10, 2018 [id number] [phone] Cresencio GAYTAN PATIENT [place] SUPPLEMEN ROHITH MEDEX 2 Aug 10, 2018 [id number] Cresencio GAYTAN PATIENT [place] SUPPLEMEN ROHITH MEDEX 2 Aug 10, 2018 [id number] Cresencio GAYTAN PATIENT [place] MEDIC[place] SUPPLEMEN ROHITH MEDEX 2 Aug 10, 2018 [id number] Cresencio GAYTAN PATIENT [place] PREFERRED PROVIDER ORGANIZAT ION (PPO) [facility] Apr 10, 2009 [id number] Cresencio GAYTAN PATIENT CIGNA POINT OF SERVICE [facility] Aug 10, 2016 [id number] [phone] Cresencio GAYTAN PATIENT CIGNA BEHAVIORAL HEALTH MENTAL HEALTH [facility] Aug 10, 2016 [id number] Cresencio GAYTAN PATIENT CIGNA PHARMACY PRESCRIPT ION [facility] Aug 10, 2016 [id number] Cresencio GAYTAN PATIENT EXPRESS SCRIPTS ([id number]) PRESCRIPT ION BCBSM A June 21, 2010 MASA [id number] [phone] Cresencio GAYTAN PATIENT MEDICARE (WNR) MEDICARE (M) PART B Aug 10, 2018 PART B [id number] Cresencio GAYTAN PATIENT MEDICARE (WNR) MEDICARE (M) PART A Aug 10, 2018 PART A [id number] [phone] Cresencio GAYTAN PATIENT MEDICARE (WNR) MEDICARE (M) PART A Aug 10, 2018 PART A [id number] [phone] Cresencio GAYTAN PATIENT MEDICARE (WNR) MEDICARE (M) PART B Aug 10, 2018 PART B [id number] Cresencio GAYTAN PATIENT Selected Encounter This section includes the information on record at [place] for the Encounter. Date/Time Encounter Type Encounter Description Reason Provider Source Apr 18, 2023 03:55 PM FIT SPECTACLES MONOFOCAL OPTOMETRY ICD-10-CM Z46.0 Encounter for fit/adjst of spectacles and contact lenses KELLI ALAN Encounter Template Text not used by [place] Assessments - Encounter Diagnoses This section includes the primary and secondary diagnoses documented for the Encounter. Date/Time Primary/Secondary Diagnosis Diagnosis Name Provider Source Apr 18, 2023 03:55 PM PRIMARY Encounter for fit/adjst of spectacles and contact lenses LENORE FINN [place] [facility] [place] [facility] Plan of Treatment: Future Appointments (+ 6 months) and Future Tests (+/- 45 days) The Plan of Treatment section includes future care activities for the patient from all [place] treatmentfacilities. This section includes future appointments and future orders which are active, pending or scheduled. Future Appointments This section includes appointments that were scheduled to occur 6 months from the date of the Encounter, up to a maximum of 20 appointments. The data comes from all [place] treatment facilities. Appointment Date/Time Appointment Type Appointme nt Facility Name Apr 25, 2023 08:30 AM [facility] Apr 29, 2023 10:00 AM [facility] - MEDICINE [facility] Lab Results: +/- 30 days of the encounter This section includes the Chemistry and Hematology Lab Results on record with [place] for the patient. Radiology Reports and Pathology Reports are provided separately, in subsequent sections. Lab Results This section contains the Chemistry/Hematology Results that were resulted 30 days before or 30 daysafter the date of the Encounter. Date/Time Source Result Type Result - Unit Interpretation Reference Range Comment Apr 25, 2023 07:37 AM [facility] VITAMIN D (25-OH) Specimen Type: SERUM No comment entered. Ordering Provider: NAVA MARTINEZ Report Released Date/Time: Apr 16, 2023 11:34 AM Reporting Lab: [facility] [address] [facility] [address] Performing Lab: [address] [address] VITAMIN D (25-OH) 29 ng/mL 20-50 Apr 25, 2023 07:37 AM [facility] LIPID PANEL FASTING Specimen Type: SERUM No comment entered. Ordering Provider: NAVA MARTINEZ Report Released Date/Time: Apr 16, 2023 11:34 AM Reporting Lab: [facility] [address] [facility] [address] Performing Lab: [address] [address] CHOLESTEROL 138 mg/dL TRIGLYCERIDE 83 mg/dL 0-150 LDL calculated 68 mg/dL 0-129 CHOL/HDL 2.6 HDL CHOLESTEROL 53 mg/dL 40-60 Apr 25, 2023 07:37 AM [facility] BASIC METABOLIC PANEL (fasting) Specimen Type: SERUM No comment entered. Ordering Provider: NAVA MARTINEZ Report Released Date/Time: Apr 16, 2023 11:34 AM Reporting Lab: [facility] [address] [facility] [address] Performing Lab: [address] [address] UREA NITROGEN 16 mg/dL 7-25 GLUCOSE 99 mg/dL 65-100 SODIUM 140 mmol/L 135-145 POTASSIUM 4.5 mmol/L 3.5-5.0 CHLORIDE 103 mmol/L 100-110 CO2 27 meq/L 20-30 CREATININE, Serum 0.80 mg/dL 0.50-1.40 eGFR(CKD-EPI 2020) >90 mL/min >60 Apr 25, 2023 07:37 AM [facility] LIVER FUNCTION Specimen Type: SERUM No comment entered. Ordering Provider: NAVA MARTINEZ Report Released Date/Time: Apr 16, 2023 11:34 AM Reporting Lab: [facility] [address] [facility] [address] Performing Lab: [address] [address] PROTEIN,TOTAL 7.3 g/dL 6.0-8.3 ALBUMIN 4.1 g/dL 3.5-5.0 ALKALINE PHOSPHATASE 75 U/L 40-150 AST 21 U/L 5-34 ALT 25 U/L BILIRUBIN, TOTAL 0.3 mg/dL 0.2-1.2 Apr 25, 2023 07:37 AM [facility] CBC AND DIFF (AUTO) Specimen Type: BLOOD No comment entered. Ordering Provider: NAVA MARTINEZ Report Released Date/Time: Apr 16, 2023 11:34 AM Reporting Lab: [facility] [address] [facility] [address] Performing Lab: [address] [address] WBC 6.22 10*3/uL 4.50-11.00 RBC 4.24 10*6/uL 4.23-5.66 HGB 13.2 g/dL 12.8-17 HCT 38.6 L 39.2-50.4 MCV 91.0 fL 82-99 MCHC 34.2 g/dL 30.8-35.1 PLT 228 10*3/uL 140-360 RDW-CV 13.2 12.0-16.0 Angelina, Abs 0.62 10*3/uL 0.30-1.10 MCH 31.1 pg 26.2-32.6 Neut % 61.4 43.7-75.8 Lymph % 24.1 14.0-42.3 Angelina % 10.0 5.1-13.7 Eos % 3.5 0.4-6.8 [...] and tobacco- related health factors from the [place] facility where the Encounter took place. Current Smoking Status This section includes the most current smoking, or tobacco-related health factor, from the [place] facility where the Encounter took place. Date/Time Current Smoking Status Comment [facility] it Jul 19, 2021 10:25 AM [place]-TOBACCO USER EVERY DAY [facility] Tobacco Use History This section includes a history of the smoking, or tobacco-related health factors, that were collected on or before the date of the Encounter. The data comes from the [place] facility where the Encounter took place. Date/Time Smoking Status/Tobac co Use Comment Facility Jul 19, 2021 10:25 AM VA-TOBACCO USE 30 YEARS OR MORE [facility] Jul 19, 2021 10:25 AM VA-TOBACCO USE ADVICE [facility] [place] [facility] Jul 19, 2021 10:25 AM VA-TOBACCO USE RIP/MOULD OPERATOR NO [place] [facility] [place] [facility] Jul 19, 2021 10:25 AM VA-TOBACCO USE MED NO [place] [facility] [place] [facility] Jul 19, 2021 10:25 AM VA-TOBACCO USER EVERY DAY [place] [facility] [place] [facility] May 09, 2020 08:00 AM VA-TOBACCO FORMER USER [place] [facility] [place] [facility] May 09, 2020 08:00 AM VA-TOBACCO QUIT < 1 YEAR [place] [facility] [place] [facility] Mar 23, 2019 09:01 AM VA-TOBACCO FORMER USER [place] [facility] [place] [facility] Mar 23, 2019 09:01 AM VA-TOBACCO QUIT 5 TO < 15 YRS [place] [facility] [place] [facility] Jan 19, 2018 08:24 AM VA-TOBACCO NEVER USED [place] [facility] [place] [facility] Jan 17, 2017 08:30 AM QUIT TOBACCO USE > 7 YEARS AGO [place] [facility] [place] [facility] Jan 17, 2017 08:30 AM QUIT TOBACCO USE 1-7 YEARS AGO [place] [facility] [place] [facility] Apr 19, 2016 01:06 PM QUIT TOBACCO USE 1-7 YEARS AGO [place] [facility] [place] [facility] May 05, 2014 08:45 AM QUIT TOBACCO USE 1-7 YEARS AGO [place] [facility] [place] [facility] Apr 08, 2013 08:46 AM QUIT TOBACCO USE 1-7 YEARS AGO . [place] [facility] [place] [facility] Jan 10, 2012 08:23 AM CURRENT SMOKER [place] [facility] [place] [facility] Jan 10, 2012 08:23 AM V1-PT DECLINES REF TO TOBACCO CESS PRGM [place] [facility] [place] [facility] Jan 10, 2012 08:23 AM V1-PT DECLINES TOBACCO CESSATION MEDS [place] [facility] [place] [facility] Jan 10, 2012 08:23 AM V1-PT THINKING ABOUT QUIT TOBACCO USE [place] [facility] [place] [facility] Apr 25, 2011 08:23 AM V1-PT DECLINES REF TO TOBACCO CESS PRGM [facility] [place] [facility] Apr 25, 2011 08:23 AM V1-PT DECLINES TOBACCO CESSATION MEDS [facility] Apr 25, 2011 08:23 AM V1-PT THINKING ABOUT QUIT TOBACCO USE [facility] Aug 16, 2010 09:12 AM CURRENT SMOKER 1 pk per wk [facility] Aug 16, 2010 09:12 AM V1-PT DECLINES REF TO TOBACCO CESS PRGM [facility] Aug 16, 2010 09:12 AM V1-PT DECLINES TOBACCO CESSATION MEDS [facility] Aug 16, 2010 09:12 AM V1-PT NOT INTERESTED IN QUIT TOBACCO USE [facility] Dec 28, 2009 08:21 AM V1-PT DECLINES REF TO TOBACCO CESS PRGM [facility] Dec 28, 2009 08:21 AM V1-PT THINKING ABOUT QUIT TOBACCO USE [facility] Mar 20, 2009 10:53 AM V1-PT DECLINES REF TO TOBACCO CESS PRGM [facility] Mar 20, 2009 10:53 AM V1-PT DECLINES TOBACCO CESSATION MEDS [facility] Mar 20, 2009 10:53 AM V1-PT NOT INTERESTED IN QUIT TOBACCO USE [facility] Mar 13, 2009 09:37 AM CURRENT SMOKER just when he is drinking. He can't stand it otherwise. [facility] Advance Directives: All historical and current Section Date Range: From patient's date of to the date document was created. This section includes ALL of a patient's completed or amended [place] Advance and Rescinded Directives. The entries below indicate that a directive exists for the patient, but an actual copy is not included with this document. The data comes from all [place] facilities. Date Advance Directives Provider Source Jun 08, 2014 ADVANCE DIRECTIVE TARYN VILLATORO [facility] Encounter Notes: All associated encounter notes This section contains the clinical notes associated to the Encounter. Date/Time Encounter Note(s) Provider Source Apr 18, 2023 03:55 PM OPTOMETRY NOTE: LOCAL TITLE: OPTOMETRY NOTE STANDARD TITLE: OPTOMETRY NOTE DATE OF NOTE: APR 18, 2023@15:55 ENTRY DATE: APR 18, 2023@15:55:49 AUTHOR: YELITZA LIM EXP COSIGNER: URGENCY: STATUS: COMPLETED OPTOMETRY NOTE Has ADDENDA dvo photo gudino The quote provided below is for informational purposes only. Please verify prior to the creation of a purchase order. SOFIA GAYTAN 8079 RX INFORMATION OD +1.75 -0.50 X45 Add:0.00 Pzm:0.00 Dir: Prz2:0.00 Dir2: OS +1.50 -0.50 X105 Add:0.00 Pzm:0.00 Dir: Prz2:0.00 Dir2: FITTING INFORMATION FPD:71 NPD: Angelina:R: L: SEG HT:R: L: Tint:None Shade:None [place] Billable Items FRAME: BIG TWIST BLACK [id number] Right Lens: PLASTIC SINGLE VISION PHOTOCHROMIC GUDINO 1.498 PLASTIC CR39 Left Lens: PLASTIC SINGLE VISION PHOTOCHROMIC GUDINO 1.498 PLASTIC CR39 nvo The quote provided below is for informational purposes only. Please verify prior to the creation of a purchase order. 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 OPT HT entered consult(s) as requested for provider signature. /samir/ [facility] Signed: 04/21/2023 12:42 YELITZA LIM CNTRL TRN [facility]
== END 2024-01-14 08:07 | disposition home or self-care (01) ==
LOC: HO.US 08:06
PROVIDERS: PCP Nurse Practitioner Family; Visit Provider Surgery Vascular Surgery
DX: I83.93 Asymptomatic varicose veins of bilateral lower extremities (principal)
CPT/HCPCS: 93970

== ENCOUNTER 2024-02-05 09:47 | Outpatient (AMB) | payer MEDICARE, SELFPAY ==
--- OUTSIDE RECORDS SUMMARY | 2024-02-05 09:50 | XMS_ITS | Encounter Summary ---
Author Name [facility] [place] [facility] [place] Address [address] [place] [address] Care Team Providers Care Postal Inspector Name Role Phone BLAISE MARTINEZ Primary Care [...] SUPPLEMEN ROHITH MEDEX 2 Aug 10, 2018 [id number] [phone] Cresencio GAYTAN PATIENT [place] SUPPLEMEN ROHITH MEDEX 2 Aug 10, 2018 [id number] Cresencio GAYTAN PATIENT [place] SUPPLEMEN ORHITH MEDEX 2 Aug 10, 2018 [id number] [phone] Cresencio GAYTAN PATIENT [place] MEDIC[place] SUPPLEMEN ROHITH MEDEX 2 Aug 10, 2018 [id number] Cresencio GAYTAN PATIENT [place] PREFERRED PROVIDER ORGANIZAT ION (PPO) [facility] Apr 10, 2009 [id number] Cresencio GAYTAN PATIENT CIGNA POINT OF SERVICE [facility] Aug 10, 2016 [id number] [phone] Cresencio GAYTAN PATIENT CIGNA BEHAVIORAL HEALTH MENTAL HEALTH [facility] Aug 10, 2016 [id number] Cresencio GAYTAN PATIENT CIGNA PHARMACY PRESCRIPT ION [facility] Aug 10, 2016 [id number] Cresencio GAYTAN PATIENT EXPRESS SCRIPTS ([id number]) PRESCRIPT ION BCBSM A June 21, 2010 [place] [id number] Cresencio GAYTAN PATIENT MEDICARE (WNR) MEDICARE (M) PART A Aug 10, 2018 PART A [id number] Cresencio GAYTAN PATIENT MEDICARE (WNR) MEDICARE (M) PART B Aug 10, 2018 PART B [id number] Cresencio GAYTAN PATIENT MEDICARE (WNR) MEDICARE (M) PART A Aug 10, 2018 PART A [id number] [phone] Cresencio GAYTAN PATIENT MEDICARE (WNR) MEDICARE (M) PART B Aug 10, 2018 PART B [id number] [phone] Cresencio GAYTAN PATIENT Selected Encounter This section includes the information on record at [place] for the Encounter. Date/Time Encounter Type Encounter Description Reason Provider Source Apr 18, 2023 03:55 PM FIT SPECTACLES MONOFOCAL OPTOMETRY ICD-10-CM Z46.0 Encounter for fit/adjst of spectacles and contact lenses KELLI ALAN Encounter Template Text not used by [place] Assessments - Encounter Diagnoses This section includes the primary and secondary diagnoses documented for the Encounter. Date/Time Primary/Secondary Diagnosis Diagnosis Name Provider Source Apr 18, 2023 03:55 PM PRIMARY Encounter for fit/adjst of spectacles and contact lenses LENORE FINN [place] [facility] [place] [facility] Plan of Treatment: Future Appointments [...] [place] treatment facilities. Appointment Date/Time Appointment Type Appointme nt Facility Name Apr 25, 2023 08:30 AM [facility] [place] [facility] Apr 29, 2023 10:00 AM [facility] [place] [facility] Lab Results: +/- 30 days of the encounter This section includes the Chemistry and Hematology Lab Results on record with [place] for the patient. Radiology Reports and Pathology Reports are provided separately, in subsequent sections. Lab Results This section contains the Chemistry/Hematology Results that were resulted 30 days before or 30 daysafter the date of the Encounter. Date/Time Source Result Type Result - Unit Interpretation Reference Range Comment Apr 25, 2023 07:37 AM [facility] LIPID PANEL FASTING Specimen Type: SERUM No comment entered. Ordering Provider: NAVA MARTINEZ Report Released Date/Time: Apr 16, 2023 11:34 AM Reporting Lab: [address] [address] Performing Lab: [address] [address] CHOLESTEROL 138 mg/dL TRIGLYCERIDE 83 mg/dL 0-150 LDL calculated 68 mg/dL 0-129 CHOL/HDL 2.6 HDL CHOLESTEROL 53 mg/dL 40-60 Apr 25, 2023 07:37 AM [facility] LIVER FUNCTION Specimen Type: SERUM No comment entered. Ordering Provider: NAVA MARTINEZ Report Released Date/Time: Apr 16, 2023 11:34 AM Reporting Lab: [address] [address] Performing Lab: [address] [address] PROTEIN,TOTAL 7.3 g/dL 6.0-8.3 ALBUMIN 4.1 g/dL 3.5-5.0 ALKALINE PHOSPHATASE 75 U/L 40-150 AST 21 U/L 5-34 ALT 25 U/L BILIRUBIN, TOTAL 0.3 mg/dL 0.2-1.2 Apr 25, 2023 07:37 AM [facility] BASIC METABOLIC PANEL (fasting) Specimen Type: SERUM No comment entered. Ordering Provider: NAVA MARTINEZ Report Released Date/Time: Apr 16, 2023 11:34 AM Reporting Lab: [address] [address] Performing Lab: [address] [address] UREA NITROGEN 16 mg/dL 7-25 GLUCOSE 99 mg/dL 65-100 SODIUM 140 mmol/L 135-145 POTASSIUM 4.5 mmol/L 3.5-5.0 CHLORIDE 103 mmol/L 100-110 CO2 27 meq/L 20-30 CREATININE, Serum 0.80 mg/dL 0.50-1.40 eGFR(CKD-EPI 2020) >90 mL/min >60 Apr 25, 2023 07:37 AM [facility] VITAMIN D (25-OH) Specimen Type: SERUM No comment entered. Ordering Provider: NAVA MARTINEZ Report Released Date/Time: Apr 16, 2023 11:34 AM Reporting Lab: [facility] [address] [facility] [address] Performing Lab: [address] [address] VITAMIN D (25-OH) 29 ng/mL 20-50 Apr 25, 2023 07:37 AM [facility] CBC AND DIFF (AUTO) Specimen Type: BLOOD No comment entered. Ordering Provider: NAVA MARTINEZ Report Released Date/Time: Apr 16, 2023 11:34 AM Reporting Lab: [facility] [address] [facility] [address] Performing Lab: [address] [address] WBC 6.22 10*3/uL 4.50-11.00 RBC 4.24 10*6/uL 4.23-5.66 HGB 13.2 g/dL 12.8-17 HCT 38.6 L 39.2-50.4 MCV 91.0 fL 82-99 MCHC 34.2 g/dL 30.8-35.1 PLT 228 10*3/uL 140-360 RDW-CV 13.2 12.0-16.0 Gentry, Abs 0.62 10*3/uL 0.30-1.10 MCH 31.1 pg 26.2-32.6 Neut % 61.4 43.7-75.8 Lymph % 24.1 14.0-42.3 Gentry % 10.0 5.1-13.7 Eos % 3.5 0.4-6.8 [...] and tobacco- related health factors from the [place] facility where the Encounter took place. Current Smoking Status This section includes the most current smoking, or tobacco-related health factor, from the [place] facility where the Encounter took place. Date/Time Current Smoking Status Comment [facility] it Jul 19, 2021 10:25 AM [place]-TOBACCO DOESNT USE WI 30 MIN WAKEUP [facility] Tobacco Use History This section includes a history of the smoking, or tobacco-related health factors, that were collected on or before the date of the Encounter. The data comes from the [place] facility where the Encounter took place. Date/Time Smoking Status/Tobac co Use Comment Facility Jul 19, 2021 10:25 AM [place]-TOBACCO USE 30 YEARS OR MORE [facility] Jul 19, 2021 10:25 AM VA-TOBACCO USE ADVICE [facility] [place] [facility] Jul 19, 2021 10:25 AM VA-TOBACCO USE CASH APPLICATIONS SPECIALIST NO [place] [facility] [place] [facility] Jul 19, 2021 10:25 AM VA-TOBACCO USE MED NO [place] [facility] [place] [facility] Jul 19, 2021 10:25 AM VA-TOBACCO USER EVERY DAY [place] [facility] [place] [facility] May 09, 2020 08:00 AM VA-TOBACCO FORMER USER [place] [facility] [place] [facility] May 09, 2020 08:00 AM VA-TOBACCO QUIT < 1 YEAR [facility] [place] [facility] Mar 23, 2019 09:01 AM VA-TOBACCO FORMER USER [place] [facility] [place] [facility] Mar 23, 2019 09:01 AM VA-TOBACCO QUIT 5 TO < 15 YRS [place] [facility] [place] [facility] Jan 19, 2018 08:24 AM VA-TOBACCO NEVER USED [place] [facility] [place] [facility] Jan 17, 2017 08:30 AM QUIT TOBACCO USE > 7 YEARS AGO [place] [facility] [place] [facility] Jan 17, 2017 08:30 AM QUIT TOBACCO USE 1-7 YEARS AGO [place] [facility] [place] [facility] Apr 19, 2016 01:06 PM QUIT TOBACCO USE 1-7 YEARS AGO [place] [facility] [place] [facility] May 05, 2014 08:45 AM QUIT TOBACCO USE 1-7 YEARS AGO [place] [facility] [place] [facility] Apr 08, 2013 08:46 AM QUIT TOBACCO USE 1-7 YEARS AGO . [place] [facility] [place] [facility] Jan 10, 2012 08:23 AM CURRENT SMOKER [place] [facility] [place] [facility] Jan 10, 2012 08:23 AM V1-PT DECLINES REF TO TOBACCO CESS PRGM [place] [facility] [place] [facility] Jan 10, 2012 08:23 AM V1-PT DECLINES TOBACCO CESSATION MEDS [facility] [place] [facility] Jan 10, 2012 08:23 AM V1-PT THINKING ABOUT QUIT TOBACCO USE [place] [facility] [place] [facility] Apr 25, 2011 08:23 AM V1-PT DECLINES REF TO TOBACCO CESS PRGM [facility] Apr 25, 2011 08:23 AM V1-PT DECLINES TOBACCO CESSATION MEDS [facility] Apr 25, 2011 08:23 AM V1-PT THINKING ABOUT QUIT TOBACCO USE [facility] Aug 16, 2010 09:12 AM CURRENT SMOKER 1 pk per wk [facility] Aug 16, 2010 09:12 AM V1-PT DECLINES REF TO TOBACCO CESS PRGM [facility] Aug 16, 2010 09:12 AM V1-PT DECLINES TOBACCO CESSATION MEDS [facility] Aug 16, 2010 09:12 AM V1-PT NOT INTERESTED IN QUIT TOBACCO USE [facility] Dec 28, 2009 08:21 AM V1-PT DECLINES REF TO TOBACCO CESS PRGM [facility] Dec 28, 2009 08:21 AM V1-PT THINKING ABOUT QUIT TOBACCO USE [facility] Mar 20, 2009 10:53 AM V1-PT DECLINES REF TO TOBACCO CESS PRGM [facility] Mar 20, 2009 10:53 AM V1-PT DECLINES TOBACCO CESSATION MEDS [facility] Mar 20, 2009 10:53 AM V1-PT NOT INTERESTED IN QUIT TOBACCO USE [facility] Mar 13, 2009 09:37 AM CURRENT SMOKER just when he is drinking. He can't stand it otherwise. [facility] Advance Directives: All historical and current [...] Jun 08, 2014 ADVANCE DIRECTIVE TARYN VILLATORO [facility] Encounter Notes: All associated encounter notes [...] Dir: Prz2:0.00 Dir2: FITTING INFORMATION FPD:71 NPD: Gentry:R: L: SEG HT:R: L: Tint:None Shade:None [place] Billable Items FRAME: BIG TWIST BLACK [id number] Right Lens: PLASTIC SINGLE VISION PHOTOCHROMIC GUDINO [...] Dir: Prz2:0.00 Dir2: FITTING INFORMATION FPD:68 NPD:68 Gentry:R: L: SEG HT:R: L: Tint:None Shade:None [place] Billable Items FRAME: JAZZ BLACK 58-18-155 Right Lens: PLASTIC SINGLE VISION CLEAR 1.498 PLASTIC CR39 Left Lens: PLASTIC SINGLE VISION CLEAR 1.498 PLASTIC CR39 /samir/ YELITZA LIM ASSOCIATE SALES REPRESENTATIVE Signed: 04/18/2023 15:56 Receipt Acknowledged By: 04/21/2023 12:41 /es/ [facility]/21/2023 ADDENDUM STATUS: COMPLETED PDS ethnoarchaeologist fit 1 DVO eyeglasses 1 NVO eyeglasses on 04/17/2023. OPT HT entered consult(s) as requested for provider signature. /samir/ [facility] Signed: 04/21/2023 12:42 YELITZA LIMRL DIANATRStephanie [facility]
--- OUTSIDE RECORDS SUMMARY | 2024-02-05 09:50 | XMS_ITS | Patient Health Record ---
Author Organization [facility] Address [address] [place] [address] Care Team Providers Care Brass Sorter Name Role Phone MARGOT SOSA Primary Care Provider UnavailGamaliel Woods Unavailable [phone] Dao Chowdary Unavailable Unavaila ble ALLERGIES Allergen [...] malignant neoplasm of colon (Z12.11) Active confirmed 316673718 Problem History of adenomatous polyp of colon (Z86.010) Active confirmed 579589511 Problem Gastroesophageal reflux disease without esophagitis (K21.9) Active confirmed 804607562 Problem Preprocedural examination (Z01.818) Active confirmed [id number] Problem Long-term (current) use of anticoagulants, INR goal 2.0-3.0 (Z79.01) Active confirmed 825845616 PLAN OF TREATMENT Future Test Test Name Order Date COLONOSCOPY 07/06/2014 COLONOSCOPY 09/23/2019 Next Appt Details Provider Name:Gamaliel Abernathy , 03/16/2024 11:10:00 AM, [address] [facility], [address], [place], [address], Insurance Providers Payer Name Payer Address Payer Phone Subscriber Number Group Number Insured Name Patient Relationship to Insured Coverage Start Date Coverage End Date MEDICARE OF [place] [address] [place] [address] [phone] [id number] SOFIA GAYTAN Self - patient is the insured MEDEX ATTN CLAIMS [address] [place] [address] [id number] SOFIA GAYTAN Self - patient is the insured MEDICAL (GENERAL) HISTORY Medical History History ICD Code Colon polyps--tubular adenomas removed i n 1994, 2003, and 03/2009 A.fib--cardiac ablation--Dr. Palma Denies [place],DM,CVA,Lung disease,renal dise ase Sleep apnea-uses a CPAP machine GERD-EGD in 2003 was normal Mild sigmoid diverticulosis and small internal hemorrhoids noted on previous colonoscopies Negative colonoscopy in 08/2014 Hypertension Surgical History Surgery Date(Month/Year) Right knee surgery Sleep apnea surgery in the Left hip replacement-- [facility] 08/2015
--- OUTSIDE RECORDS SUMMARY | 2024-02-05 09:50 | XMS_ITS | Encounter Summary ---
Author Name [facility] [facility] [place] [facility] [place] Address [address] [place] [address] Care Team Providers Care Master Control Operator Name Role Phone BLAISE MARTINEZ Primary Care [...] Name Patient's Relationship to Policy [place] SUPPLEMEN ROHITH MEDEX 2 Aug 10, 2018 [id number] Cresencio GAYTAN PATIENT [place] SUPPLEMEN ROHITH MEDEX 2 Aug 10, 2018 [id number] [phone] Cresencio GAYTAN PATIENT [place] MEDICARE SUPPLEMEN ROHITH MEDEX 2 Aug 10, 2018 [id number] [phone] Cresencio GAYTAN PATIENT [place] SUPPLEMEN ROHITH MEDEX 2 Aug 10, 2018 [id number] [phone] Cresencio GAYTAN PATIENT [place] PREFERRED PROVIDER ORGANIZAT ION (PPO) [facility] Apr 10, 2009 [id number] Cresencio GAYTAN PATIENT CIGNA POINT OF SERVICE [facility] Aug 10, 2016 [id number] [phone] Cresencio GAYTAN PATIENT CIGNA BEHAVIORAL HEALTH MENTAL HEALTH [facility] Aug 10, 2016 [id number] Cresencio GAYTAN PATIENT CIGNA PHARMACY PRESCRIPT ION [facility] [employer] [facility] Aug 10, 2016 [id number] Cresencio GAYTAN PATIENT EXPRESS SCRIPTS ([id number]) PRESCRIPT ION [facility] A June 21, 2010 [id number] Cresencio GAYTAN PATIENT MEDICARE (WNR) MEDICARE (M) PART B Aug 10, 2018 PART B [id number] Cresencio GAYTAN PATIENT MEDICARE (WNR) MEDICARE (M) PART A Aug 10, 2018 PART A [id number] Cresencio GAYTAN PATIENT MEDICARE (WNR) MEDICARE (M) PART A Aug 10, 2018 PART A [id number] Cresencio GAYTAN PATIENT MEDICARE (WNR) MEDICARE (M) PART B Aug 10, 2018 PART B [id number] Cresencio GAYTAN PATIENT Selected Encounter This section includes the information on record at [place] for the Encounter. Date/Time Encounter Type Encounter Description Reason Pro vider Source Mar 26, 2023 10:52 AM Outpatient Encounter OPTOMETRY IHE Encounter Template Text not used by [place] Plan of Treatment: Future Appointments (+ 6 months) and Future Tests (+/- 45 days) The Plan of Treatment section includes future care activities for the patient from all [place] treatmentfacilities. This section includes future appointments and future orders which are active, pending or scheduled. Future Appointments This section includes appointments that were scheduled to occur 6 months from the date of the Encounter, up to a maximum of 20 appointments. The data comes from all [place] treatment facilities. Appointment Date/Time Appointment Type Appointme nt Facility Name Apr 17, 2023 07:30 AM AM[place]ULATORY [place]ICINE [place] [facility] [facility] [place] [facility] Apr 25, 2023 08:30 [facility] Apr 29, 2023 10:00 AM [facility] - MEDICINE [facility] Lab Results: +/- 30 days of the encounter This section includes the Chemistry and Hematology Lab Results on record with [place] for the patient. Radiology Reports and Pathology Reports are provided separately, in subsequent sections. Lab Results This section contains the Chemistry/Hematology Results that were resulted 30 days before or 30 daysafter the date of the Encounter. Date/Time Source Result Type Result - Unit Interpretation Reference Range Comment Apr 25, 2023 07:37 AM [facility] VITAMIN D (25-OH) Specimen Type: SERUM No comment entered. Ordering Provider: NAVA MARTINEZ Report Released Date/Time: Apr 16, 2023 11:34 AM Reporting Lab: [address] [address] Performing Lab: [address] [address] VITAMIN D (25-OH) 29 ng/mL 20-50 Apr 25, 2023 07:37 AM [facility] LIVER FUNCTION Specimen Type: SERUM No comment entered. Ordering Provider: NAVA MARTINEZ Report Released Date/Time: Apr 16, 2023 11:34 AM Reporting Lab: [address] [address] Performing Lab: [address] [address] PROTEIN,TOTAL 7.3 g/dL 6.0-8.3 ALBUMIN 4.1 g/dL 3.5-5.0 ALKALINE PHOSPHATASE 75 U/L 40-150 AST 21 U/L 5-34 ALT 25 U/L BILIRUBIN, TOTAL 0.3 mg/dL 0.2-1.2 Apr 25, 2023 07:37 AM [facility] LIPID PANEL FASTING Specimen Type: SERUM No comment entered. Ordering Provider: NAVA MARTINEZ Report Released Date/Time: Apr 16, 2023 11:34 AM Reporting Lab: [facility] [address] [facility] [address] Performing Lab: [facility] [address] [facility] [address] CHOLESTEROL 138 mg/dL TRIGLYCERIDE 83 mg/dL 0-150 LDL calculated 68 mg/dL 0-129 CHOL/HDL 2.6 HDL CHOLESTEROL 53 mg/dL 40-60 Apr 25, 2023 07:37 AM [facility] BASIC METABOLIC PANEL (fasting) Specimen Type: SERUM No comment entered. Ordering Provider: NAVA MARTINEZ Report Released Date/Time: Apr 16, 2023 11:34 AM Reporting Lab: [facility] [address] [facility] [address] Performing Lab: [address] [address] UREA NITROGEN 16 mg/dL 7-25 GLUCOSE 99 mg/dL 65-100 SODIUM 140 mmol/L 135-145 POTASSIUM 4.5 mmol/L 3.5-5.0 CHLORIDE 103 mmol/L 100-110 CO2 27 meq/L 20-30 CREATININE, Serum 0.80 mg/dL 0.50-1.40 eGFR(CKD-EPI 2020) >90 mL/min >60 Apr 25, 2023 07:37 AM [facility] CBC AND DIFF (AUTO) Specimen Type: BLOOD No comment entered. Ordering Provider: NAVA MARTINEZ Report Released Date/Time: Apr 16, 2023 11:34 AM Reporting Lab: [facility] [address] [facility] [address] Performing Lab: [address] [address] WBC 6.22 10*3/uL 4.50-11.00 RBC 4.24 10*6/uL 4.23-5.66 HGB 13.2 g/dL 12.8-17 HCT 38.6 L 39.2-50.4 MCV 91.0 fL 82-99 MCHC 34.2 g/dL 30.8-35.1 PLT 228 10*3/uL 140-360 RDW-CV 13.2 12.0-16.0 [place], Abs 0.62 10*3/uL 0.30-1.10 MCH 31.1 pg 26.2-32.6 Neut % 61.4 43.7-75.8 Lymph % 24.1 14.0-42.3 [place] % 10.0 5.1-13.7 Eos % 3.5 0.4-6.8 [...] and tobacco- related health factors from the [place] facility where the Encounter took place. Current Smoking Status This section includes the most current smoking, or tobacco-related health factor, from the [place] facility where the Encounter took place. Date/Time Current Smoking Status Comment [facility] Jul 19, 2021 10:25 AM VA-TOBACCO USER EVERY DAY [place] [facility] [place] [facility] Tobacco Use History This section includes a history of the smoking, or tobacco-related health factors, that were collected on or before the date of the Encounter. The data comes from the [place] facility where the Encounter took place. 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 [facility] [place] [facility] Jul 19, 2021 10:25 AM VA-TOBACCO USE MED NO [place] [facility] [facility] Jul 19, 2021 10:25 AM VA-TOBACCO USER EVERY DAY [facility] [place] [facility] May 09, 2020 08:00 AM VA-TOBACCO FORMER USER [place] [facility] [facility] May 09, 2020 08:00 AM VA-TOBACCO QUIT < 1 YEAR [place] [facility] [place] [facility] Mar 23, 2019 09:01 AM VA-TOBACCO FORMER USER [place] [facility] [facility] Mar 23, 2019 09:01 AM VA-TOBACCO QUIT 5 TO < 15 YRS [place] [facility] [facility] Jan 19, 2018 08:24 AM VA-TOBACCO NEVER USED [place] [facility] [facility] [place] [facility] Jan 17, 2017 08:30 AM QUIT TOBACCO USE > 7 YEARS AGO [facility] [place] [facility] Jan 17, 2017 08:30 AM QUIT TOBACCO USE 1-7 YEARS AGO [place] [facility] [place] [facility] Apr 19, 2016 01:06 PM QUIT TOBACCO USE 1-7 YEARS AGO [place] [facility] [place] [facility] May 05, 2014 08:45 AM QUIT TOBACCO USE 1-7 YEARS AGO [place] [facility] [place] [facility] Apr 08, 2013 08:46 AM QUIT TOBACCO USE 1-7 YEARS AGO . [place] [facility] [place] [facility] Jan 10, 2012 08:23 AM CURRENT SMOKER [place] [facility] [place] [facility] Jan 10, 2012 08:23 AM V1-PT DECLINES REF TO TOBACCO CESS PRGM [place] [facility] [place] [facility] Jan 10, 2012 08:23 AM V1-PT DECLINES TOBACCO CESSATION MEDS [place] [facility] [place] [facility] Jan 10, 2012 08:23 AM V1-PT THINKING ABOUT QUIT TOBACCO USE [place] [facility] [place] [facility] Apr 25, 2011 08:23 AM V1-PT DECLINES REF TO TOBACCO CESS PRGM [place] [facility] [place] [facility] Apr 25, 2011 08:23 AM V1-PT DECLINES TOBACCO CESSATION MEDS [place] [facility] [place] [facility] Apr 25, 2011 08:23 AM V1-PT THINKING ABOUT QUIT TOBACCO USE [place] [facility] [facility] [place] [facility] Aug 16, 2010 09:12 AM CURRENT SMOKER 1 pk per wk [facility] [place] [facility] Aug 16, 2010 09:12 AM V1-PT DECLINES REF TO TOBACCO CESS PRGM [facility] Aug 16, 2010 09:12 AM V1-PT DECLINES TOBACCO CESSATION MEDS [facility] Aug 16, 2010 09:12 AM V1-PT NOT INTERESTED IN QUIT TOBACCO USE [facility] Dec 28, 2009 08:21 AM V1-PT DECLINES REF TO TOBACCO CESS [facility] Dec 28, 2009 08:21 AM V1-PT THINKING ABOUT QUIT TOBACCO USE [facility] Mar 20, 2009 10:53 AM V1-PT DECLINES REF TO TOBACCO CESS PRGM [facility] Mar 20, 2009 10:53 AM V1-PT DECLINES TOBACCO CESSATION MEDS [facility] Mar 20, 2009 10:53 AM V1-PT NOT INTERESTED IN QUIT TOBACCO USE [facility] Mar 13, 2009 09:37 AM CURRENT SMOKER just when he is drinking. He can't stand it otherwise. [facility] Advance Directives: All historical and current Section Date Range: From patient's date of to the date document was created. This section includes ALL of a patient's completed or amended [place] Advance and Rescinded Directives. The entries below indicate that a directive exists for the patient, but an actual copy is not included with this document. The data comes from all [place] facilities. Date Advance Directives Provider Source Jun 08, 2014 ADVANCE DIRECTIVE TARYN VILLATORO [facility] Encounter Notes: All associated encounter notes This section contains the clinical notes associated to the Encounter. Date/Time Encounter Note(s) Provider Source Mar 26, 2023 10:52 AM ADMINISTRATIVE NOT E: LOCAL TITLE: ADMINISTRATIVE NOTE STANDARD TITLE: ADMINISTRATIVE NOTE DATE OF NOTE: MAR 26, 2023@10:52 ENTRY DATE: MAR 26, 2023@10:54:20 AUTHOR: EDIS RAGSDALE EXP COSIGNER: URGENCY: STATUS: COMPLETED [place]na [facility] with the following request: [ ]Eyeglass repair/ nose piece [ x ]Eyeglass repair/ replace screw [ ]Eyeglass repair/ Lens out [ ]Other Comments: The states they are: [ ]Picking up [ X ]Requesting Mailed [ x ] At this encounter the 's demographics were verified as correct. /samir/ EDIS RAGSDALE CASTING SORTER Signed: 03/26/2023 10:56 Receipt Acknowledged By: 03/28/2023 10:54 /samir/ EDIS GANT [place] [facility]
--- OUTSIDE RECORDS SUMMARY | 2024-02-05 09:50 | XMS_ITS | Encounter Summary ---
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 Name Role Phone BLAISE MARTINEZ Primary Care [...] SUPPLEMEN ROHITH MEDEX 2 Aug 10, 2018 [id number] Cresencio GAYTAN PATIENT BCBS [place] MEDICARE SUPPLEMEN ROHITH MEDEX 2 Aug 10, 2018 [id number] [phone] Cresencio GAYTAN PATIENT [place] MEDICARE SUPPLEMEN ROHITH MEDEX 2 Aug 10, 2018 [id number] Cresencio GAYTAN PATIENT [place] SUPPLEMEN ROHITH MEDEX 2 Aug 10, 2018 [id number] Cresencio GAYTAN PATIENT [place] PREFERRED PROVIDER ORGANIZAT ION (PPO) [facility] Apr 10, 2009 [id number] Cresencio GAYTAN PATIENT CIGNA POINT OF SERVICE [facility] Aug 10, 2016 [id number] Cresencio GAYTAN PATIENT CIGNA BEHAVIORAL HEALTH MENTAL HEALTH [facility] Aug 10, 2016 [id number] Cresencio GAYTAN PATIENT CIGNA PHARMACY PRESCRIPT ION [facility] Aug 10, 2016 [id number] Cresencio GAYTAN PATIENT EXPRESS SCRIPTS ([id number]) PRESCRIPT ION BCBSM A June 21, 2010 MAS[place] [id number] Cresencio GAYTAN PATIENT MEDICARE (WNR) MEDICARE (M) PART B Aug 10, 2018 PART B [id number] [phone] Cresencio GAYTAN PATIENT MEDICARE (WNR) MEDICARE (M) PART A Aug 10, 2018 PART A [id number] Cresencio GAYTAN PATIENT MEDICARE (WNR) MEDICARE (M) PART A Aug 10, 2018 PART A [id number] [phone] Cresencio GAYTAN PATIENT MEDICARE (WNR) MEDICARE (M) PART B Aug 10, 2018 PART B [id number] Cresencio GAYTAN PATIENT Selected Encounter This section includes the information on record at [place] for the Encounter. Date/Time Encounter Type Encounter Description Reason Pro vider Source Mar 14, 2023 08:49 AM Outpatient Encounter OPTOMETRY IHE Encounter Template Text not used by [place] Plan of Treatment: Future Appointments (+ 6 [...] [place] treatment facilities. Appointment Date/Time Appointment Type Appointme nt Facility Name Apr 17, 2023 07:30 AM [place] [facility] [place] [facility] Apr 25, 2023 08:30 AM [place]ORY - NONE [place] [facility] [place] [facility] Apr 29, 2023 10:00 AM [place]ORY [place] [facility] Social History: Smoking Status (Most current) and Tobacco Use (All prior to encounter date) This section includes the most current, and the historical, smoking and tobacco- related health factors from the [place] facility where the Encounter took place. Current Smoking Status This section includes the most current smoking, or tobacco-related health factor, from the [place] facility where the Encounter took place. Date/Time Current Smoking Status Comment Facil it Jul 19, 2021 10:25 AM VA-TOBACCO USER EVERY DAY [place] [facility] [place] [facility] Tobacco Use History This section includes a history of the smoking, or tobacco-related health factors, that were collected on or before the date of the Encounter. The data comes from the [place] facility where the Encounter took place. 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 [facility] [place] [facility] Jul 19, 2021 10:25 AM VA-TOBACCO USE MED NO [place] [facility] [place] [facility] Jul 19, 2021 10:25 AM VA-TOBACCO USER EVERY DAY [facility] [place] [facility] May 09, 2020 08:00 AM VA-TOBACCO FORMER USER [facility] [place] [facility] May 09, 2020 08:00 AM VA-TOBACCO QUIT < 1 YEAR [facility] [place] [facility] Mar 23, 2019 09:01 AM VA-TOBACCO FORMER USER [facility] [place] [facility] Mar 23, 2019 09:01 AM VA-TOBACCO QUIT 5 TO < 15 YRS [place] [facility] [place] [facility] Jan 19, 2018 08:24 AM VA-TOBACCO NEVER USED [place] [facility] [place] [facility] Jan 17, 2017 08:30 AM QUIT TOBACCO USE > 7 YEARS AGO [place] [facility] [place] [facility] Jan 17, 2017 08:30 AM QUIT TOBACCO USE 1-7 YEARS AGO [facility] [place] [facility] Apr 19, 2016 01:06 PM QUIT TOBACCO USE 1-7 YEARS AGO [facility] [place] [facility] May 05, 2014 08:45 AM QUIT TOBACCO USE 1-7 YEARS AGO [place] [facility] [place] [facility] Apr 08, 2013 08:46 AM QUIT TOBACCO USE 1-7 YEARS AGO . [facility] [place] [facility] Jan 10, 2012 08:23 AM CURRENT SMOKER [facility] [place] [facility] Jan 10, 2012 08:23 AM V1-PT DECLINES REF TO TOBACCO CESS PRGM [facility] [place] [facility] Jan 10, 2012 08:23 AM V1-PT DECLINES TOBACCO CESSATION MEDS [place] [facility] [place] [facility] Jan 10, 2012 08:23 AM V1-PT THINKING ABOUT QUIT TOBACCO USE [place] [facility] [place] [facility] Apr 25, 2011 08:23 AM V1-PT DECLINES REF TO TOBACCO CESS PRGM [place] [facility] [place] [facility] Apr 25, 2011 08:23 AM V1-PT DECLINES TOBACCO CESSATION MEDS [facility] [place] [place] [facility] Apr 25, 2011 08:23 AM V1-PT THINKING ABOUT QUIT TOBACCO USE [facility] [place] [facility] Aug 16, 2010 09:12 AM CURRENT SMOKER 1 pk per wk [place] [facility] [place] [facility] Aug 16, 2010 09:12 AM V1-PT DECLINES REF TO TOBACCO CESS PRGM [place] [facility] [place] [facility] Aug 16, 2010 09:12 AM V1-PT DECLINES TOBACCO CESSATION MEDS [place] [facility] [facility] Aug 16, 2010 09:12 AM V1-PT NOT INTERESTED IN QUIT TOBACCO USE [facility] [place] [facility] Dec 28, 2009 08:21 AM V1-PT DECLINES REF TO TOBACCO CESS PRGM [place] [facility] [facility] Dec 28, 2009 08:21 AM V1-PT THINKING ABOUT QUIT TOBACCO USE [facility] [place] [facility] Mar 20, 2009 10:53 AM V1-PT [...] Jun 08, 2014 ADVANCE DIRECTIVE TARYN VILLATORO [facility] Encounter Notes: All associated encounter [...] with a PID of 04/24/2023 Letter mailed [phone] Ext: [phone] /samir/ CHAN WILLIS ADVANCED BOX ORDER PERSON Signed: 03/14/2023 08:51 CHAN WILLIS [facility]
--- OUTSIDE RECORDS SUMMARY | 2024-02-05 09:50 | XMS_ITS | Continuity of Care Document ---
Author Name [facility] Organization [facility] Care Team Providers Care Cripple Chaser Name Role Phone [facility] Unavailable Unavailable Problems Combined list of problems from Department of Defense and Veterans Affairs facilities. It does not include entries that were removed or entered in error. Problem Status Onset Date Problem Type Date of Resolution Comments Source History of total hip arthroplasty Active 016 Condition Apr 19, 2016 Entered By: STORM MARTINEZ AM Comment: Left THR, [facility] Abdominal aortic aneurysm 3.0 to 5.5 centimeters in male Active Condition [facility] AF- Atrial Fibrillation (SCT [id number]) Active Condition [facility] Alcohol Dependence Active Condition [facility] Counseling on Substance Use and Abuse (ICD-9-CM V65.42) Active Condition [facility] Exposure to potentially hazardous substance ([facility] [id number]) Active Condition May 20 4 Entered By: [...] HCS Obesity * (ICD-9-CM 278.00) [facility] PTSD Active [facility] [place] [facility] Sleep Apnea (ICD-9-CM 780.57/786.09) Active Condition [facility] [place] [facility] Tinnitus * (ICD-9-CM 388.30) [facility] [place] Urgency of urination (ICD-9-CM 788.63) [facility] Acute congestive heart failure Inactive Condition 09/06/2013 Sep 06, 2013 Entered By: STORM MARTINEZ AM Comment: one episode with onset of afib, since ablated. [facility] Diagnosis: ICD-10-CM Z77.29 Contact with and exposure to other hazardous substances [facility] Diagnosis: ICD-10-CM K03.6 Deposits [accretions] on teeth [facility] Diagnosis: ICD-10-CM Z46.0 Encounter for fit/adjst of spectacles and contact lenses [facility] Diagnosis: ICD-10-CM L71.8 Other rosacea [facility] Medications Combined list of outpatient medications [...] PRIOR TO DENTAL APPOINTM ENT ORAL 05/25/2023 [id number] SMITH ALVAREZ 2023 20 [facility] APIXABAN 5MG TAB TAKE ONE TABLET BY MOUTH TWICE DAILY ORAL 11/20/2023 [id number] BLAISE MARTINEZ 2022 180 [facility] CARBOXYMETH YLCELLULOSE NA 0.5% SOLN,OPH INSTILL 1 DROP INTO EACH EYE FOUR TIMES DAILY NEEDED FOR DRY EYE OPHTHA LMIC ACTIVE 04/17/2024 [id number] Cresencio ALAN ICHELE 2023 45 [facility] CARBOXYMETH YLCELLULOSE NA 0.5% SOLN,OPH INSTILL 1 DROP INTO EACH EYE FOUR TIMES DAILY NEEDED FOR DRY EYE OPHTHA LMIC DISCONT INUED 03/27/2023 [id number] Cresencio ALAN ICHELE 2022 30 [facility] DRONEDARONE 400MG TAB TAKE ONE TABLET BY MOUTH TWICE DAILY ORAL ACTIVE 10/30/2024 [id number] BLAISE MARTINEZ 2023 180 [facility] DRONEDARONE 400MG TAB TAKE ONE TABLET BY MOUTH TWICE DAILY ORAL DISCONT INUED 10/21/2023 [id number] RA JAMES HENRIQUEZ 2022 180 [facility] FISH OIL CAP,ORAL TAKE BY MOUTH ORAL ACTIVE BLAISE MARTINEZ 2020 [facility] LISINOPRIL 10MG TAB TAKE ONE TABLET BY MOUTH ONCE DAILY TO CONTROL BLOOD PRESSURE ORAL ACTIVE 10/30/2024 [id number] BLAISE MARTINEZ 2023 90 [facility] LISINOPRIL 10MG TAB TAKE ONE TABLET BY MOUTH ONCE DAILY TO CONTROL BLOOD PRESSURE ORAL DISCONT INUED 10/21/2023 [id number] 4 RA JAMES HENRIQUEZ 2022 90 [facility] MULTIVITAMI NS W/MINERALS TAB TAKE ONE TABLET BY MOUTH EVERY DAY ORAL ACTIVE CANDY GRIGSBY O 2009 [facility] OMEPRAZOLE 20MG CAP,EC TAKE ONE CAPSULE BY MOUTH EVERY DAY ORAL ACTIVE 10/30/2024 [id number] 4 BLAISE MARTINEZ 2023 90 [facility] OMEPRAZOLE 20MG CAP,EC TAKE ONE CAPSULE BY MOUTH EVERY DAY ORAL DISCONT INUED 10/21/2023 [id number] RA JAMES HENRIQUEZ 2022 90 [facility] ROSUVASTATI N CA 40MG TAB TAKE ONE-HALF TABLET BY MOUTH ONCE DAILY FOR CHOLESTE ROL ORAL ACTIVE 09/18/2024 [id number] BLAISE MARTINEZ 2023 45 [facility] ROSUVASTATI N TAB TAKE BY MOUTH ORAL ACTIVE CHICAGOBLAISE CARO 2020 [facility] VITAMIN D3 (CHOLECALCI FEROL) TAB TAKE BY MOUTH ORAL ACTIVE CHICAGOBLAISE CARO 2020 [facility] Allergies, Adverse Reactions, Alerts Combined list of allergies from Department of Defense and Veterans Affairs facilities. It does not include entries that were removed or entered in error. Substance Category Reaction Severity Reaction type Status Date Reported Comments Source CODEINE Propensity to adverse reactions to drug (finding) active 09/25/2010 [facility] MORPHINE Propensity to adverse reactions to drug (finding) active 09/25/2010 [facility] Immunizations Combined list of available immunizations from the Department of Defense and Veterans Affairs facilities. Immunization Series Date Given Administered By Site Reaction Lot Number CVX Code Drug Talent Associate Status Comments Source INFLUENZA, UNSPECIFIED FORMULATION 2022 88 complet ed [facility] PNEUMOCOCCAL CONJUGATE PCV20, POLYSACCHARID E USD220 CONJUGATE, ADJUVANT, PF 2021 216 complet ed [...] DOSE 2 2020 207 complet ed MOD; [id number]; 1 [facility] COVID-19 (MODERNA), MRNA, LNP-S, PF, 100 MCG/0.5 ML DOSE 1 2020 207 complet ed MOD; [id number]; 1 [facility] [...] Reference Range Date Interpretation Specimen Comments Source VITAMIN D (25-OH) 25-HYDROXYV ITAMIN D3 [MASS/VOLUM E] IN SERUM OR PLASMA 29 ng/mL 20 - 50 04/24 Specimen Type: SERUM No comment entered. Ordering Provider: Bo MARTINEZ Report Released Date/Time: Apr 16, 2023 11:34 AM Reporting Lab: [facility] [place] [facility] [address] [facility] [address] Performing Lab: [facility] [place] [facility] [address] [facility] [address] [facility] LIPID PANEL FASTING CHOLESTEROL [MASS/VOLUM E] IN SERUM OR PLASMA 138 mg/dL 04/24 Specimen Type: SERUM No comment entered. Ordering Provider: Bo MARTINEZ Report Released Date/Time: Apr 16, 2023 11:34 AM Reporting Lab: [facility] [place] [facility] [address] [facility] [address] Performing Lab: [facility] [place] [address] [address] [place] [facility] [place] [facility] LIPID PANEL FASTING TRIGLYCERID E [MASS/VOLUM E] IN SERUM OR PLASMA 83 mg/dL 0 - 150 04/24 Specimen Type: SERUM No comment entered. Ordering Provider: Bo MARTINEZ Report Released Date/Time: Apr 16, 2023 11:34 AM Reporting Lab: [facility] [place] [facility] [address] [facility] [address] Performing Lab: [facility] [place] [address] [address] [facility] [place] [facility] LIPID PANEL FASTING CHOLESTEROL IN LDL [MASS/VOLUM E] IN SERUM OR PLASMA BY CALCULATION 68 mg/dL 0 - 129 04/24 Specimen Type: SERUM No comment entered. Ordering Provider: Bo MARTINEZ Report Released Date/Time: Apr 16, 2023 11:34 AM Reporting Lab: [facility] [place] [facility] [address] [facility] [address] Performing Lab: [facility] [place] [address] [address] [facility] [place] [facility] LIPID PANEL FASTING CHOLESTEROL .TOTAL/CHOL ESTEROL IN HDL [MASS RATIO] IN SERUM OR PLASMA 2.6 04/24 Specimen Type: SERUM No comment entered. Ordering Provider: Bo MARTINEZ Report Released Date/Time: Apr 16, 2023 11:34 AM Reporting Lab: [facility] [place] [facility] [address] [facility] [address] Performing Lab: [place] [facility] [place] [facility] [address] [facility] [address] [facility] [facility] LIPID PANEL FASTING CHOLESTEROL IN HDL [MASS/VOLUM E] IN SERUM OR PLASMA 53 mg/dL 40 - 60 04/24 Specimen Type: SERUM No comment entered. Ordering Provider: Bo MARTINEZ Report Released Date/Time: Apr 16, 2023 11:34 AM Reporting Lab: [facility] [address] [address] Performing Lab: [place] [facility] [place] [facility] [address] [facility] [address] [facility] LIVER FUNCTION PROTEIN [MASS/VOLUM E] IN SERUM OR PLASMA 7.3 g/dL 6.0 - 8.3 04/24 Specimen Type: SERUM No comment entered. Ordering Provider: Bo MARTINEZ Report Released Date/Time: Apr 16, 2023 11:34 AM Reporting Lab: [facility] [place] [facility] [address] [facility] [address] Performing Lab: [facility] [place] [facility] [address] [facility] [address] [facility] [place] [facility] LIVER FUNCTION ALBUMIN [MASS/VOLUM E] IN SERUM OR PLASMA 4.1 g/dL 3.5 - 5.0 04/24 Specimen Type: SERUM No comment entered. Ordering Provider: Bo MARTINEZ Report Released Date/Time: Apr 16, 2023 11:34 AM Reporting Lab: [facility] [place] [address] [address] Performing Lab: [place] [facility] [place] [facility] [address] [facility] [address] [facility] [place] [facility] LIVER FUNCTION ALKALINE PHOSPHATASE [ENZYMATIC ACTIVITY/VO LUME] IN SERUM OR PLASMA 75 U/L 40 - 150 04/24 Specimen Type: SERUM No comment entered. Ordering Provider: Bo MARTINEZ Report Released Date/Time: Apr 16, 2023 11:34 AM Reporting Lab: [facility] [place] [facility] [address] [facility] [address] Performing Lab: [facility] [place] [facility] [address] [facility] [address] [facility] [place] [facility] LIVER FUNCTION ASPARTATE AMINOTRANSF ERASE [ENZYMATIC ACTIVITY/VO LUME] IN SERUM OR PLASMA 21 U/L 5 - 34 04/24 Specimen Type: SERUM No comment entered. Ordering Provider: Bo MARTINEZ Report Released Date/Time: Apr 16, 2023 11:34 AM Reporting Lab: [facility] [place] [facility] [address] [facility] [address] Performing Lab: [facility] [place] [facility] [address] [facility] [address] [facility] [place] [facility] LIVER FUNCTION ALANINE AMINOTRANSF ERASE [ENZYMATIC ACTIVITY/VO LUME] IN SERUM OR PLASMA 25 U/L 04/24 Specimen Type: SERUM No comment entered. Ordering Provider: Bo MARTINEZ Report Released Date/Time: Apr 16, 2023 11:34 AM Reporting Lab: [facility] [place] [facility] [address] [facility] [address] Performing Lab: [facility] [place] [facility] [address] [facility] [address] [facility] [place] [facility] LIVER FUNCTION BILIRUBIN.T OTAL [MASS/VOLUM E] IN SERUM OR PLASMA 0.3 mg/dL 0.2 - 1.2 04/24 Specimen Type: SERUM No comment entered. Ordering Provider: Bo MARTINEZ Report Released Date/Time: Apr 16, 2023 11:34 AM Reporting Lab: [facility] [place] [facility] [address] [facility] [address] Performing Lab: [facility] [place] [facility] [address] [facility] [address] [place] [facility] [place] [facility] BASIC METABOLIC PANEL (fasting) UREA NITROGEN [MASS/VOLUM E] IN SERUM OR PLASMA 16 mg/dL 7 - 25 04/24 Specimen Type: SERUM No comment entered. Ordering Provider: Bo MARTINEZ Report Released Date/Time: Apr 16, 2023 11:34 AM Reporting Lab: [facility] [place] [facility] [address] [facility] [address] Performing Lab: [place] [facility] [place] [facility] [address] [facility] [address] [facility] [place] [facility] BASIC METABOLIC PANEL (fasting) GLUCOSE [MASS/VOLUM E] IN SERUM OR PLASMA 99 mg/dL 65 - 100 04/24 Specimen Type: SERUM No comment entered. Ordering Provider: Bo MARTINEZ Report Released Date/Time: Apr 16, 2023 11:34 AM Reporting Lab: [facility] [place] [facility] [address] [facility] [address] Performing Lab: [place] [facility] [facility] [address] [facility] [address] [facility] BASIC METABOLIC PANEL (fasting) SODIUM [MOLES/VOLU ME] IN SERUM OR PLASMA 140 mmol/L 135 - 145 04/24 Specimen Type: SERUM No comment entered. Ordering Provider: Bo MARTINEZ Report Released Date/Time: Apr 16, 2023 11:34 AM Reporting Lab: [facility] [place] [facility] [address] [facility] [address] Performing Lab: [place] [facility] [place] [facility] [address] [facility] [address] [facility] [place] [facility] BASIC METABOLIC PANEL (fasting) POTASSIUM [MOLES/VOLU ME] IN SERUM OR PLASMA 4.5 mmol/L 3.5 - 5.0 04/24 Specimen Type: SERUM No comment entered. Ordering Provider: Bo MARTINEZ Report Released Date/Time: Apr 16, 2023 11:34 AM Reporting Lab: [facility] [place] [facility] [address] [facility] [address] Performing Lab: [facility] [place] [facility] [address] [facility] [address] [facility] [place] [facility] BASIC METABOLIC PANEL (fasting) CHLORIDE [MOLES/VOLU ME] IN SERUM OR PLASMA 103 mmol/L 100 - 110 04/24 Specimen Type: SERUM No comment entered. Ordering Provider: Bo MARTINEZ Report Released Date/Time: Apr 16, 2023 11:34 AM Reporting Lab: [facility] [place] [facility] [address] [facility] [address] Performing Lab: [facility] [place] [facility] [address] [facility] [address] [place] [facility] [place] [facility] BASIC METABOLIC PANEL (fasting) CARBON DIOXIDE, TOTAL [MOLES/VOLU ME] IN SERUM OR PLASMA 27 meq/L 20 - 30 04/24 Specimen Type: SERUM No comment entered. Ordering Provider: Bo MARTINEZ Report Released Date/Time: Apr 16, 2023 11:34 AM Reporting Lab: [facility] [place] [address] [address] Performing Lab: [facility] [place] [facility] [address] [facility] [address] [facility] [place] [facility] BASIC METABOLIC PANEL (fasting) CREATININE [MASS/VOLUM E] IN SERUM OR PLASMA 0.80 mg/dL 0.50 - 1.40 04/24 Specimen Type: SERUM No comment entered. Ordering Provider: Bo MARTINEZ Report Released Date/Time: Apr 16, 2023 11:34 AM Reporting Lab: [facility] [place] [address] [address] Performing Lab: [facility] [place] [facility] [address] [facility] [address] [facility] [place] [facility] BASIC METABOLIC PANEL (fasting) GLOMERULAR FILTRATION RATE/1.73 SQ M.PREDICTED [VOLUME RATE/AREA] IN SERUM, PLASMA OR BLOOD BY CREATININE- BASED FORMULA (CKD-EPI 2020) >90mL/ min 60 04/24 Specimen Type: SERUM No comment entered. Ordering Provider: Bo MARTINEZ Report Released Date/Time: Apr 16, 2023 11:34 AM Reporting Lab: [facility] [place] [address] [address] Performing Lab: [facility] [place] [facility] [address] [facility] [address] [facility] CBC AND DIFF (AUTO) LEUKOCYTES [#/VOLUME] IN BLOOD BY AUTOMATED COUNT 6.22 10*3/u L 4.50 - 11.00 04/24 Specimen Type: BLOOD No comment entered. Ordering Provider: Bo MARTINEZ Report Released Date/Time: Apr 16, 2023 11:34 AM Reporting Lab: [facility] [place] [facility] [address] [facility] [address] Performing Lab: [facility] [place] [facility] [address] [facility] [address] [facility] CBC AND DIFF (AUTO) ERYTHROCYTE S [#/VOLUME] IN BLOOD BY AUTOMATED COUNT 4.24 10*6/u L 4.23 - 5.66 04/24 Specimen Type: BLOOD No comment entered. Ordering Provider: Bo MARTINEZ Report Released Date/Time: Apr 16, 2023 11:34 AM Reporting Lab: [facility] [place] [address] [address] Performing Lab: [facility] [place] [address] [address] [facility] CBC AND DIFF (AUTO) HEMOGLOBIN [MASS/VOLUM E] IN BLOOD 13.2 g/dL 12.8 - 17 04/24 Specimen Type: BLOOD No comment entered. Ordering Provider: Bo MARTINEZ Report Released Date/Time: Apr 16, 2023 11:34 AM Reporting Lab: [facility] [address] [facility] [address] Performing Lab: [facility] [facility] [address] [facility] [address] [facility] [place] CBC AND DIFF (AUTO) HEMATOCRIT [VOLUME FRACTION] OF BLOOD BY AUTOMATED COUNT 38.6 39.2 - 50.4 04/24 L Specimen Type: BLOOD No comment entered. Ordering Provider: Bo MARTINEZ Report Released Date/Time: Apr 16, 2023 11:34 AM Reporting Lab: [facility] [facility] [address] [facility] [address] Performing Lab: [facility] [place] [facility] [address] [facility] [address] [facility] [place] CBC AND DIFF (AUTO) MCV [ENTITIC VOLUME] BY AUTOMATED COUNT 91.0 fL 82 - 99 04/24 Specimen Type: BLOOD No comment entered. Ordering Provider: Bo MARTINEZ Report Released Date/Time: Apr 16, 2023 11:34 AM Reporting Lab: [facility] [place] [facility] [address] [facility] [address] Performing Lab: [facility] [place] [facility] [address] [facility] [address] [facility] [place] CBC AND DIFF (AUTO) MCHC [MASS/VOLUM E] BY AUTOMATED COUNT 34.2 g/dL 30.8 - 35.1 04/24 Specimen Type: BLOOD No comment entered. Ordering Provider: Bo MARTINEZ Report Released Date/Time: Apr 16, 2023 11:34 AM Reporting Lab: [facility] [place] [facility] [address] [facility] [address] Performing Lab: [facility] [place] [facility] [address] [facility] [address] [facility] [place] [facility] CBC AND DIFF (AUTO) PLATELETS [#/VOLUME] IN BLOOD BY AUTOMATED COUNT 228 10*3/u L 140 - 360 04/24 Specimen Type: BLOOD No comment entered. Ordering Provider: Bo MARTINEZ Report Released Date/Time: Apr 16, 2023 11:34 AM Reporting Lab: [facility] [place] [facility] [address] [facility] [address] Performing Lab: [facility] [place] [address] [address] [facility] [place] CBC AND DIFF (AUTO) ERYTHROCYTE DISTRIBUTIO N WIDTH [RATIO] BY AUTOMATED COUNT 13.2 12.0 - 16.0 04/24 Specimen Type: BLOOD No comment entered. Ordering Provider: Bo MARTINEZ Report Released Date/Time: Apr 16, 2023 11:34 AM Reporting Lab: [facility] [place] [address] [address] Performing Lab: [facility] [place] [address] [address] [place] [facility] [place] [facility] CBC AND DIFF (AUTO) MONOCYTES [#/VOLUME] IN BLOOD BY AUTOMATED COUNT 0.62 10*3/u L 0.30 - 1.10 04/24 Specimen Type: BLOOD No comment entered. Ordering Provider: Bo MARTINEZ Report Released Date/Time: Apr 16, 2023 11:34 AM Reporting Lab: [facility] [place] [address] [address] Performing Lab: [facility] [place] [address] [address] [facility] [place] [facility] CBC AND DIFF (AUTO) MCH [ENTITIC MASS] BY AUTOMATED COUNT 31.1 pg 26.2 - 32.6 04/24 Specimen Type: BLOOD No comment entered. Ordering Provider: Bo MARTINEZ Report Released Date/Time: Apr 16, 2023 11:34 AM Reporting Lab: [facility] [place] [address] [address] Performing Lab: [facility] [place] [facility] [address] [facility] [address] [facility] [place] [facility] CBC AND DIFF (AUTO) NEUTROPHILS /100 LEUKOCYTES IN BLOOD BY AUTOMATED COUNT 61.4 43.7 - 75.8 04/24 Specimen Type: BLOOD No comment entered. Ordering Provider: Bo MARTINEZ Report Released Date/Time: Apr 16, 2023 11:34 AM Reporting Lab: [facility] [place] [facility] [address] [facility] [address] Performing Lab: [facility] [place] [facility] [address] [facility] [address] [facility] [place] [facility] CBC AND DIFF (AUTO) LYMPHOCYTES /100 LEUKOCYTES IN BLOOD BY AUTOMATED COUNT 24.1 14.0 - 42.3 04/24 Specimen Type: BLOOD No comment entered. Ordering Provider: Bo MARTINEZ Report Released Date/Time: Apr 16, 2023 11:34 AM Reporting Lab: [facility] [place] [facility] [address] [facility] [address] Performing Lab: [facility] [place] [facility] [address] [facility] [address] [facility] [place] CBC AND DIFF (AUTO) MONOCYTES/1 00 LEUKOCYTES IN BLOOD BY AUTOMATED COUNT 10.0 5.1 - 13.7 04/24 Specimen Type: BLOOD No comment entered. Ordering Provider: Bo MARTINEZ Report Released Date/Time: Apr 16, 2023 11:34 AM Reporting Lab: [facility] [place] [facility] [address] [facility] [address] Performing Lab: [facility] [place] [facility] [address] [place] [address] [facility] CBC AND DIFF (AUTO) EOSINOPHILS /100 LEUKOCYTES IN BLOOD BY AUTOMATED COUNT 3.5 0.4 - 6.8 04/24 Specimen Type: BLOOD No comment entered. Ordering Provider: Bo MARTINEZ Report Released Date/Time: Apr 16, 2023 11:34 AM Reporting Lab: [facility] [place] [facility] [address] [facility] [address] Performing Lab: [facility] [place] [facility] [address] [facility] [address] [facility] [place] CBC AND DIFF (AUTO) BASOPHILS/1 00 LEUKOCYTES IN BLOOD BY AUTOMATED COUNT 0.8 0.1 - 2.0 04/24 Specimen Type: BLOOD No comment entered. Ordering Provider: Bo MARTINEZ Report Released Date/Time: Apr 16, 2023 11:34 AM Reporting Lab: [facility] [place] [facility] [address] [facility] [address] Performing Lab: [facility] [place] [facility] [address] [address] [facility] CBC AND DIFF (AUTO) NEUTROPHILS [#/VOLUME] IN BLOOD BY AUTOMATED COUNT 3.82 10*3/u L 2.20 - 7.60 04/24 Specimen Type: BLOOD No comment entered. Ordering Provider: Bo MARTINEZ Report Released Date/Time: Apr 16, 2023 11:34 AM Reporting Lab: [facility] [address] [facility] [address] Performing Lab: [facility] [place] [facility] [address] [facility] [address] [facility] CBC AND DIFF (AUTO) LYMPHOCYTES [#/VOLUME] IN BLOOD BY AUTOMATED COUNT 1.50 10*3/u L 1.00 - 3.20 04/24 Specimen Type: BLOOD No comment entered. Ordering Provider: Bo MARTINEZ Report Released Date/Time: Apr 16, 2023 11:34 AM Reporting Lab: [facility] [address] [facility] [phone] Performing Lab: [facility] [address] [facility] [address] [facility] CBC AND DIFF (AUTO) EOSINOPHILS [#/VOLUME] IN BLOOD BY AUTOMATED COUNT 0.22 10*3/u L 0.03 - 0.44 04/24 Specimen Type: BLOOD No comment entered. Ordering Provider: Bo MARTINEZ Report Released Date/Time: Apr 16, 2023 11:34 AM Reporting Lab: [facility] [place] [address] [phone] Performing Lab: [facility] [place] [address] [address] [facility] CBC AND DIFF (AUTO) BASOPHILS [#/VOLUME] IN BLOOD BY AUTOMATED COUNT 0.05 10*3/u L 0.01 - 0.13 04/24 Specimen Type: BLOOD No comment entered. Ordering Provider: Bo MARTINEZ Report Released Date/Time: Apr 16, 2023 11:34 AM Reporting Lab: [facility] [place] [address] [address] Performing Lab: [facility] [place] [address] [address] [facility] [place] [facility] CBC AND DIFF (AUTO) IMMATURE GRANULOCYTE S/100 LEUKOCYTES IN BLOOD BY AUTOMATED COUNT 0.2 0.0 - 0.7 04/24 Specimen Type: BLOOD No comment entered. Ordering Provider: Bo MARTINEZ Report Released Date/Time: Apr 16, 2023 11:34 AM Reporting Lab: [facility] [place] [address] [address] Performing Lab: [facility] [place] [address] [address] [facility] [place] [facility] CBC AND DIFF (AUTO) IMMATURE GRANULOCYTE S [#/VOLUME] IN BLOOD 0.01 10*3/u L 0.00 - 0.06 04/24 Specimen Type: BLOOD No comment entered. Ordering Provider: Bo MARTINEZ Report Released Date/Time: Apr 16, 2023 11:34 AM Reporting Lab: [facility] [place] [address] [address] Performing Lab: [facility] [address] [facility] [address] [facility] VITAMIN D 25-OH (Therapy monitor) 25-HYDROXYV [...] additional information , please refer to [email or web address] ation.[employer] .[employer]/faq/FA Q199 (This link is being provided for information al/ educational purposes only.) This test was developed and its analytical performance characteris tics have been determined by [place] It has not been cleared or approved by the U.S. Food and Drug Administrat [employer]. This assay has been validated pursuant to the CLIA regulations and is used for clinical purposes. This test was developed and its analytical performance characteris tics have been determined by [employer] [place] It has not been cleared or approved by the U.S. Food and Drug Administrat [employer]. This assay has been validated pursuant to the CLIA regulations and is used for clinical purposes. Test Performed by [facility], [employer] [facility], [address] [place] [address] Hayes Granado M.D., Ph.D., Director of Laboratorie s , CLIA [id number] TEST PERFORMED AT: , Ordering Provider: Bo MARTINEZ Report Released Date/Time: Aug 30, 2021 11:50 AM Reporting Lab: [facility] [address] [facility] [address] Performing Lab: [facility] [address] [address] [facility] VITAMIN D 25-OH (Therapy monitor) 25-HYDROXYV [...] additional information , please refer to http://educ ation.[employer] .com/faq/FA Q113 (This link is being provided for information al/ educational purposes only.) This test was developed and its analytical performance characteris tics have been determined by [employer] [place] It has not been cleared or approved by the U.S. Food and Drug Administrat ion. This assay has been validated pursuant to the CLIA regulations and is used for clinical purposes. This test was developed and its analytical performance characteris tics have been determined by [place] It has not been cleared or approved by the U.S. Food and Drug Administrat ion. This assay has been validated pursuant to the CLIA regulations and is used for clinical purposes. Test Performed by [facility], [employer] [facility], [address] [place], [place] Hayes Granado M.D., Ph.D., Director of Laboratorie s , CLIA [id number] TEST PERFORMED AT: , Ordering Provider: Bo MARTINEZ Report Released Date/Time: Aug 30, 2021 11:50 AM Reporting Lab: [facility] [address] [facility] [address] Performing Lab: [facility] [address] [address] [facility] VITAMIN D 25-OH (Therapy monitor) CALCIFEROL (VIT [...] additional information , please refer to http://educ ation.[employer] .com/faq/FA Q199 (This link is being provided for information al/ educational purposes only.) This test was developed and its analytical performance characteris tics have been determined by [employer] [place]. It has not been cleared or approved by the U.S. Food and Drug Administrat ion. This assay has been validated pursuant to the CLIA regulations and is used for clinical purposes. This test was developed and its analytical performance characteris tics have been determined by [employer] [place]. It has not been cleared or approved by the U.S. Food and Drug Administrat ion. This assay has been validated pursuant to the CLIA regulations and is used for clinical purposes. Test Performed by [facility], [employer] [facility], [address] [place] [address] Hayes Granado M.D., Ph.D., Director of Laboratorie s , CLIA [id number] TEST PERFORMED AT: , Ordering Provider: Bo MARTINEZ Report Released Date/Time: Aug 30, 2021 11:50 AM Reporting Lab: [address] [address] Performing Lab: [place] [id number] LIVER FUNCTION PROTEIN [MASS/VOLUM E] IN SERUM OR PLASMA 7.3 g/dL 6.0 - 8.3 08/12 Specimen Type: SERUM No comment entered. Ordering Provider: Bo MARTINEZ Report Released Date/Time: Aug 30, 2021 11:50 AM Reporting Lab: [address] [address] Performing Lab: [address] [address] [facility] LIVER FUNCTION ALBUMIN [MASS/VOLUM E] IN SERUM OR PLASMA 4.3 g/dL 3.5 - 5.0 08/12 Specimen Type: SERUM No comment entered. Ordering Provider: Bo MARTINEZ Report Released Date/Time: Aug 30, 2021 11:50 AM Reporting Lab: [facility] [place] [facility] [address] [facility] [address] Performing Lab: [facility] [place] [facility] [address] [facility] [address] [facility] [place] [facility] LIVER FUNCTION ALKALINE PHOSPHATASE [ENZYMATIC ACTIVITY/VO LUME] IN SERUM OR PLASMA 82 U/L 40 - 150 08/12 Specimen Type: SERUM No comment entered. Ordering Provider: Bo MARTINEZ Report Released Date/Time: Aug 30, 2021 11:50 AM Reporting Lab: [facility] [place] [facility] [address] [facility] [address] Performing Lab: [facility] [place] [facility] [address] [facility] [address] [facility] [place] [facility] LIVER FUNCTION ASPARTATE AMINOTRANSF ERASE [ENZYMATIC ACTIVITY/VO LUME] IN SERUM OR PLASMA 21 U/L 5 - 34 08/12 Specimen Type: SERUM No comment entered. Ordering Provider: Bo MARTINEZ Report Released Date/Time: Aug 30, 2021 11:50 AM Reporting Lab: [facility] [place] [facility] [address] [facility] [address] Performing Lab: [facility] [place] [facility] [address] [facility] [address] [facility] [place] [facility] LIVER FUNCTION ALANINE AMINOTRANSF ERASE [ENZYMATIC ACTIVITY/VO LUME] IN SERUM OR PLASMA 18 U/L 08/12 Specimen Type: SERUM No comment entered. Ordering Provider: Bo MARTINEZ Report Released Date/Time: Aug 30, 2021 11:50 AM Reporting Lab: [facility] [place] [facility] [address] [facility] [address] Performing Lab: [facility] [place] [facility] [address] [facility] [address] [facility] [place] [facility] LIVER FUNCTION BILIRUBIN.T OTAL [MASS/VOLUM E] IN SERUM OR PLASMA 0.4 mg/dL 0.2 - 1.2 08/12 Specimen Type: SERUM No comment entered. Ordering Provider: Bo MARTINEZ Report Released Date/Time: Aug 30, 2021 11:50 AM Reporting Lab: [facility] [place] [address] [address] Performing Lab: [facility] [place] [address] [address] [facility] [place] [facility] VITAMIN B12 COBALAMIN (VITAMIN B12) [MASS/VOLUM E] IN SERUM OR PLASMA 454 pg/mL 200 - 900 08/12 Specimen Type: SERUM No comment entered. Ordering Provider: Bo MARTINEZ Report Released Date/Time: Aug 30, 2021 11:50 AM Reporting Lab: [facility] [place] [address] [address] Performing Lab: [facility] [place] [address] [address] [facility] LIPID PANEL FASTING CHOLESTEROL [MASS/VOLUM E] IN SERUM OR PLASMA 127 mg/dL 08/12 Specimen Type: SERUM No comment entered. Ordering Provider: Bo MARTINEZ Report Released Date/Time: Aug 30, 2021 11:50 AM Reporting Lab: [facility] [place] [address] [address] Performing Lab: [facility] [place] [address] [address] [facility] [place] [facility] LIPID PANEL FASTING TRIGLYCERID E [MASS/VOLUM E] IN SERUM OR PLASMA 83 mg/dL 0 - 150 08/12 Specimen Type: SERUM No comment entered. Ordering Provider: Bo MARTINEZ Report Released Date/Time: Aug 30, 2021 11:50 AM Reporting Lab: [facility] [place] [address] [address] Performing Lab: [facility] [place] [facility] [address] [facility] [address] [facility] [place] [facility] LIPID PANEL FASTING CHOLESTEROL IN LDL [MASS/VOLUM E] IN SERUM OR PLASMA BY CALCULATION 58 mg/dL 0 - 129 08/12 Specimen Type: SERUM No comment entered. Ordering Provider: Bo MARTINEZ Report Released Date/Time: Aug 30, 2021 11:50 AM Reporting Lab: [facility] [place] [facility] [address] [facility] [address] Performing Lab: [facility] [place] [facility] [address] [facility] [address] [facility] [place] [facility] LIPID PANEL FASTING CHOLESTEROL .TOTAL/CHOL ESTEROL IN HDL [MASS RATIO] IN SERUM OR PLASMA 2.4 08/12 Specimen Type: SERUM No comment entered. Ordering Provider: Bo MARTINEZ Report Released Date/Time: Aug 30, 2021 11:50 AM Reporting Lab: [facility] [place] [facility] [address] [facility] [address] Performing Lab: [facility] [place] [facility] [address] [facility] [address] [facility] [place] [facility] LIPID PANEL FASTING CHOLESTEROL IN HDL [MASS/VOLUM E] IN SERUM OR PLASMA 52 mg/dL 40 - 60 08/12 Specimen Type: SERUM No comment entered. Ordering Provider: Bo MARTINEZ Report Released Date/Time: Aug 30, 2021 11:50 AM Reporting Lab: [facility] [place] [facility] [address] [facility] [address] Performing Lab: [facility] [place] [address] [address] [facility] [place] [facility] BASIC METABOLIC PANEL (fasting) UREA NITROGEN [MASS/VOLUM E] IN SERUM OR PLASMA 20 mg/dL 7 - 25 08/12 Specimen Type: SERUM No comment entered. Ordering Provider: Bo MARTINEZ Report Released Date/Time: Aug 30, 2021 11:50 AM Reporting Lab: [facility] [place] [facility] [address] [facility] [address] Performing Lab: [facility] [place] [facility] [address] [facility] [address] [facility] [place] [facility] BASIC METABOLIC PANEL (fasting) GLUCOSE [MASS/VOLUM E] IN SERUM OR PLASMA 101 mg/dL 65 - 100 08/12 H Specimen Type: SERUM No comment entered. Ordering Provider: Bo MARTINEZ Report Released Date/Time: Aug 30, 2021 11:50 AM Reporting Lab: [facility] [place] [facility] [address] [facility] [address] Performing Lab: [facility] [address] [facility] [address] [facility] BASIC METABOLIC PANEL (fasting) SODIUM [MOLES/VOLU ME] IN SERUM OR PLASMA 136 mmol/L 135 - 145 08/12 Specimen Type: SERUM No comment entered. Ordering Provider: Bo MARTINEZ Report Released Date/Time: Aug 30, 2021 11:50 AM Reporting Lab: [facility] [address] [facility] [address] Performing Lab: [facility] [address] [facility] [address] [facility] BASIC METABOLIC PANEL (fasting) POTASSIUM [MOLES/VOLU ME] IN SERUM OR PLASMA 4.4 mmol/L 3.5 - 5.0 08/12 Specimen Type: SERUM No comment entered. Ordering Provider: Bo MARTINEZ Report Released Date/Time: Aug 30, 2021 11:50 AM Reporting Lab: [facility] [place] [facility] [address] [facility] [address] Performing Lab: [facility] [facility] [address] [facility] [address] [facility] [place] [facility] BASIC METABOLIC PANEL (fasting) CHLORIDE [MOLES/VOLU ME] IN SERUM OR PLASMA 102 mmol/L 100 - 110 08/12 Specimen Type: SERUM No comment entered. Ordering Provider: Bo MARTINEZ Report Released Date/Time: Aug 30, 2021 11:50 AM Reporting Lab: [facility] [place] [facility] [address] [facility] [address] Performing Lab: [place] [facility] [place] [facility] [address] [facility] [address] [facility] BASIC METABOLIC PANEL (fasting) CARBON DIOXIDE, TOTAL [MOLES/VOLU ME] IN SERUM OR PLASMA 24 meq/L 20 - 30 08/12 Specimen Type: SERUM No comment entered. Ordering Provider: Bo MARTINEZ Report Released Date/Time: Aug 30, 2021 11:50 AM Reporting Lab: [facility] [place] [address] [address] Performing Lab: [place] [facility] [address] [facility] BASIC METABOLIC PANEL (fasting) CREATININE [MASS/VOLUM E] IN SERUM OR PLASMA 0.80 mg/dL 0.50 - 1.40 08/12 Specimen Type: SERUM No comment entered. Ordering Provider: Bo MARTINEZ Report Released Date/Time: Aug 30, 2021 11:50 AM Reporting Lab: [facility] [place] [address] [address] Performing Lab: [place] [facility] [place] [address] [address] [facility] [place] [facility] BASIC METABOLIC PANEL (fasting) GLOMERULAR FILTRATION RATE/1.73 SQ M.PREDICTED [VOLUME RATE/AREA] IN SERUM, PLASMA OR BLOOD BY CREATININE- BASED FORMULA (CKD-EPI) >90mL/ min 08/12 Specimen Type: SERUM No comment entered. Ordering Provider: Bo MARTINEZ Report Released Date/Time: Aug 30, 2021 11:50 AM Reporting Lab: [facility] [place] [address] [address] Performing Lab[facility] [place] [facility] [place] [facility] [address] [facility] [address] [facility] [place] [facility] Vital [...] [facility] [place] [facility] Outpatient Encounter [id number] 08/27 [facility] [place] [place] En[facility] [id number] 09/30 [facility] [place] [place] En[facility] [id number] 10/01 [facility] [place] [place] En[facility] [id number] 10/17 [facility] [place] [place] En[facility] [id number] 11/28 [facility] [place] [place] En[facility] [id number] 12/30 [facility] [place] [place] En[facility] [id number] 01/28 [facility] [place] [place] En[facility] [id number] 03/14 [facility] [place] [place] En[facility] [id number] 03/26 [facility] [place] [place] En[facility] [id number] 04/03 [facility] [place] [place] COMPRE OPH EXAM EST PT 1/> [id number] Diagnos is: ICD-10- CM L71.8 Other rosacea
ELISA ALAN 04/16 [facility] FIT SPECTACLES MONOFOCAL [id number] Diagnos is: ICD-10- CM Z46.0 Encount er for fit/adj st of spectac les and contact lenses< br/> ELISA ALAN 04/17 [facility] CLEAN/INSP ECT MAX COMP DENT [id number] Diagnos is: ICD-10- CM K03.6 Deposit s [accret ions] on teeth<b r/> Stephanie YI 04/24 [facility] [place] [facility] [place] [facility] OFFICE O/P EST MOD 30 MIN [id number] Diagnos is: ICD-10- CM Z77.29 Contact with and exposur e to other hazardo us substan efren<br/ > BLAISE MARTINEZ 04/28 [facility] [place] [facility] [place] [facility] Outpatient Encounter [id number] 10/26 [place] [facility] Social History Combined list of available smoking, tobacco, and other social history from Department of Defense and Veterans Affairs facilities. Social History Type Response Date Comment Source Tobacco smoking status [facility]-TOBACCO USER EVERY DAY 04/29/2023 [facility] [place] [facility] History of tobacco use [place]-TOBACCO USE WI 30 MIN OF WAKEUP 04/29/2023 [place] [facility] [place] [facility] History of tobacco use [place]-TOBACCO USER EVERY DAY 07/19/2021 [place] [facility] [place] [facility] History of tobacco use TN-TOBACCO FORMER USER 05/09/2020 [place] [facility] [place] [facility] History of tobacco use TN-TOBACCO QUIT 5 TO < 15 YRS 03/23/2019 [place] [facility] [place] [facility] History of tobacco use TN-TOBACCO NEVER USED 01/19/2018 [facility] [place] [facility] History of tobacco use QUIT TOBACCO USE 1-7 YEARS AGO 01/17/2017 [place] [facility] [place] [facility] History of tobacco use QUIT TOBACCO USE 1-7 YEARS AGO 04/19/2016 [facility] [facility] History of tobacco use QUIT TOBACCO USE 1-7 YEARS AGO 05/05/2014 [place] [facility] [place] [facility] History of tobacco use QUIT TOBACCO USE 1-7 YEARS AGO 04/08/2013 . [facility] History of tobacco use CURRENT SMOKER 01/10/2012 [facility] History of tobacco use V1-PT DECLINES TOBACCO CESSATION MEDS 04/25/2011 [facility] History of tobacco use CURRENT SMOKER 08/16/2010 1 pk per wk [facility] History of tobacco use V1-PT THINKING ABOUT QUIT TOBACCO USE 12/28/2009 [facility] History of tobacco use V1-PT DECLINES TOBACCO CESSATION MEDS 03/20/2009 [facility] History of tobacco use CURRENT SMOKER 03/13/2009 just when he is drinking. He can't stand it otherwise. [facility] Plan of Care List of future care activities from [facility] facilities. Additional future care activities may be listed in the Assessment and Plan section. Date/Time Care Activity Care Activity Detail Facili ty 02/20/2024 AMBULATORY - NONE AMBULATORY - NONE [facility] 04/22/2024 AMBULATORY - MEDICINE AMBULATORY - MEDICI NE [facility] 04/27/2024 AMBULATORY - MEDICINE AMBULATORY - MEDICI NE [facility] Advance Directives List of completed, amended, or rescinded Advance Directives on record at [facility] facilities. An actual copy of the Directive is not included. Date Advance Directive Provider Source 06/08/2014 ADVANCE DIRECTIVE TARYN VILLATORO [facility]
--- OUTSIDE RECORDS SUMMARY | 2024-02-05 09:50 | XMS_ITS | Encounter Summary ---
Author Name [facility] [place] [facility] [place] Address [address] [place] [id number] Care Team Providers Care Director Of Enterprise Architecture Name Role Phone BLAISE MARTINEZ Primary Care [...] SUPPLEMEN ROHITH MEDEX 2 Aug 10, 2018 [id number] [phone] Cresencio GAYTAN [place]IENT [place] SUPPLEMEN ROHITH MEDEX 2 Aug 10, 2018 [id number] Cresencio GAYTAN [place] SUPPLEMEN ROHITH MEDEX 2 Aug 10, 2018 [id number] [phone] Cresencio GAYTAN PATIENT [place] SUPPLEMEN ROHITH MEDEX 2 Aug 10, 2018 [id number] Cresencio GAYTAN PATIENT [place] PREFERRED PROVIDER ORGANIZAT ION (PPO) [facility] Apr 10, 2009 [id number] Cresencio GAYTAN PATIENT [employer] POINT OF SERVICE [facility] Aug 10, 2016 [id number] Cresencio GAYTAN PATIENT CIGNA BEHAVIORAL HEALTH MENTAL HEALTH [facility] Aug 10, 2016 [id number] Cresencio GAYTAN PATIENT CIG[employer] PHARMACY PRESCRIPT ION [facility] Aug 10, 2016 [id number] Cresencio GAYTAN PATIENT [employer] ([id number]) PRESCRIPT ION BCBSM A June 21, 2010 [id number] [phone] Cresencio GAYTAN PATIENT MEDICARE (WNR) MEDICARE () PART A Aug 10, 2018 PART A [id number] Cresencio GAYTAN PATIENT MEDICARE (WNR) MEDICARE () PART B Aug 10, 2018 PART B [id number] Cresencio GAYTAN PATIENT MEDICARE (WNR) MEDICARE (M) PART A Aug 10, 2018 PART A [id number] Cresencio GAYTAN PATIENT MEDICARE (WNR) MEDICARE () PART B Aug 10, 2018 PART B [id number] Cresencio GAYTAN PATIENT Selected Encounter This section includes the information on record at [place] for the Encounter. Date/Time Encounter Type Encounter Description Reason Provider Source Apr 17, 2023 07:30 AM COMPRE OPH EXAM EST PT 1/> OPTOMETRY ICD-10-CM L71.8 Other KELLI Cates Renu Encounter Template Text not used by [place] Assessments - Encounter Diagnoses This section includes the primary and secondary diagnoses documented for the Encounter. Date/Time Primary/Secondary Diagnosis Diagnosis Name Provider Source May 09, 2023 11:30 AM PRIMARY Other KELLI Cates [facility] [place] [facility] May 09, 2023 11:30 AM SECONDARY Age-related nuclear cataract, bilateral KELLI ALAN [place] [facility] [place] [facility] May 09, 2023 11:30 AM SECONDARY Dry eye syndrome of bilateral lacrimal glands KELLI ALAN [place] [facility] [place] [facility] May 09, 2023 11:30 AM SECONDARY Meibomian gland dysfnct left eye, upper and lower eyelids KELLI ALAN [place] [facility] [place] [facility] May 09, 2023 11:30 AM SECONDARY Meibomian gland dysfnct right eye, upper and lower eyelids KELLI ALAN [place] [facility] May 09, 2023 11:30 AM SECONDARY 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 This section includes future appointments and future orders which are active, pending or scheduled. Future Appointments This section includes appointments that were scheduled to occur 6 months from the date of the Encounter, up to a maximum of 20 appointments. The data comes from all [place] treatment facilities. Appointment Date/Time Appointment Type Appointme nt Facility Name Apr 25, 2023 08:30 AM [facility] Apr 29, 2023 10:00 AM AMBULATORY - MEDICINE [facility] Lab Results: +/- 30 days of the encounter This section includes the Chemistry and Hematology Lab Results on record with [place] for the patient. Radiology Reports and Pathology Reports are provided separately, in subsequent sections. Lab Results This section contains the Chemistry/Hematology Results that were resulted 30 days before or 30 daysafter the date of the Encounter. Date/Time Source Result Type Result - Unit Interpretation Reference Range Comment Apr 25, 2023 07:37 AM [facility] VITAMIN D (25-OH) Specimen Type: SERUM No comment entered. Ordering Provider: NAVA MARTINEZ Report Released Date/Time: Apr 16, 2023 11:34 AM Reporting Lab: [facility] [address] [place] [address] Performing Lab: [facility] [address] [facility] [address] VITAMIN D (25-OH) 29 ng/mL 20-50 Apr 25, 2023 07:37 AM [facility] LIPID PANEL FASTING Specimen Type: SERUM No comment entered. Ordering Provider: NAVA MARTINEZ Report Released Date/Time: Apr 16, 2023 11:34 AM Reporting Lab: [facility] [address] [facility] [address] Performing Lab: [address] [address] CHOLESTEROL 138 mg/dL TRIGLYCERIDE 83 mg/dL 0-150 LDL calculated 68 mg/dL 0-129 CHOL/HDL 2.6 HDL CHOLESTEROL 53 mg/dL 40-60 Apr 25, 2023 07:37 AM [facility] LIVER FUNCTION Specimen Type: SERUM No comment entered. Ordering Provider: NAVA MARTINEZ Report Released Date/Time: Apr 16, 2023 11:34 AM Reporting Lab: [facility] [address] [address] Performing Lab: [address] [address] PROTEIN,TOTAL 7.3 g/dL 6.0-8.3 ALBUMIN 4.1 g/dL 3.5-5.0 ALKALINE PHOSPHATASE 75 U/L 40-150 AST 21 U/L 5-34 ALT 25 U/L BILIRUBIN, TOTAL 0.3 mg/dL 0.2-1.2 Apr 25, 2023 07:37 AM [facility] BASIC METABOLIC PANEL (fasting) Specimen Type: SERUM No comment entered. Ordering Provider: NAVA MARTINEZ Report Released Date/Time: Apr 16, 2023 11:34 AM Reporting Lab: [facility] [address] [facility] [address] Performing Lab: [facility] [address] UREA NITROGEN 16 mg/dL 7-25 GLUCOSE 99 mg/dL 65-100 SODIUM 140 mmol/L 135-145 POTASSIUM 4.5 mmol/L 3.5-5.0 CHLORIDE 103 mmol/L 100-110 CO2 27 meq/L 20-30 CREATININE, Serum 0.80 mg/dL 0.50-1.40 eGFR(CKD-EPI 2020) >90 mL/min >60 Apr 25, 2023 07:37 AM [facility] CBC AND DIFF (AUTO) Specimen Type: BLOOD No comment entered. Ordering Provider: NAVA MARTINEZ Report Released Date/Time: Apr 16, 2023 11:34 AM Reporting Lab: [facility] [address] [facility] [address] Performing Lab: [facility] [address] [facility] [address] WBC 6.22 10*3/uL 4.50-11.00 RBC 4.24 10*6/uL 4.23-5.66 HGB 13.2 g/dL 12.8-17 HCT 38.6 L 39.2-50.4 MCV 91.0 fL 82-99 MCHC 34.2 g/dL 30.8-35.1 PLT 228 10*3/uL 140-360 RDW-CV 13.2 12.0-16.0 [place], Abs 0.62 10*3/uL 0.30-1.10 MCH 31.1 pg 26.2-32.6 Neut % 61.4 43.7-75.8 Lymph % 24.1 14.0-42.3 [place] % 10.0 5.1-13.7 Eos % 3.5 0.4-6.8 [...] and tobacco- related health factors from the [place] facility where the Encounter took place. Current Smoking Status This section includes the most current smoking, or tobacco-related health factor, from the [place] facility where the Encounter took place. Date/Time Current Smoking Status Comment [facility] Jul 19, 2021 10:25 AM VA-TOBACCO USER EVERY DAY [place] [facility] [place] [facility] Tobacco Use History This section includes a history of the smoking, or tobacco-related health factors, that were collected on or before the date of the Encounter. The data comes from the [place] facility where the Encounter took place. 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 [place] [facility] [place] [facility] Jul 19, 2021 10:25 AM VA-TOBACCO USE MED NO [place] [facility] [facility] Jul 19, 2021 10:25 AM VA-TOBACCO USER EVERY DAY [place] [facility] [facility] May 09, 2020 08:00 AM VA-TOBACCO FORMER USER [facility] [place] [facility] May 09, 2020 08:00 AM VA-TOBACCO QUIT < 1 YEAR [facility] [place] [place] [facility] Mar 23, 2019 09:01 AM VA-TOBACCO FORMER USER [facility] [place] [facility] Mar 23, 2019 09:01 AM VA-TOBACCO QUIT 5 TO < 15 YRS [place] [facility] [facility] Jan 19, 2018 08:24 AM VA-TOBACCO NEVER USED [place] [facility] [place] [place] [facility] Jan 17, 2017 08:30 AM QUIT TOBACCO USE > 7 YEARS AGO [facility] [place] [place] [facility] Jan 17, 2017 08:30 AM QUIT TOBACCO USE 1-7 YEARS AGO [facility] [place] [facility] Apr 19, 2016 01:06 PM QUIT TOBACCO USE 1-7 YEARS AGO [facility] [place] [place] [facility] May 05, 2014 08:45 AM QUIT TOBACCO USE 1-7 YEARS AGO [facility] [place] [place] [facility] Apr 08, 2013 08:46 AM QUIT TOBACCO USE 1-7 YEARS AGO . [facility] [place] [facility] Jan 10, 2012 08:23 AM CURRENT SMOKER [facility] [place] [facility] Jan 10, 2012 08:23 AM V1-PT DECLINES REF TO TOBACCO CESS PRGM [facility] [place] [facility] Jan 10, 2012 08:23 AM V1-PT DECLINES TOBACCO CESSATION MEDS [facility] [place] [facility] Jan 10, 2012 08:23 AM V1-PT THINKING ABOUT QUIT TOBACCO USE [facility] [place] [facility] Apr 25, 2011 08:23 AM V1-PT DECLINES REF TO TOBACCO CESS PRGM [facility] [place] [facility] Apr 25, 2011 08:23 AM V1-PT DECLINES TOBACCO CESSATION MEDS [facility] [place] [facility] Apr 25, 2011 08:23 AM V1-PT THINKING ABOUT QUIT TOBACCO USE [facility] [place] [facility] Aug 16, 2010 09:12 AM CURRENT SMOKER 1 pk per wk [place] [facility] [place] [facility] Aug 16, 2010 09:12 AM V1-PT DECLINES REF TO TOBACCO CESS PRGM [place] [facility] [place] [facility] Aug 16, 2010 09:12 AM V1-PT DECLINES TOBACCO CESSATION MEDS [facility] [place] [facility] Aug 16, 2010 09:12 AM V1-PT NOT INTERESTED IN QUIT TOBACCO USE [facility] [place] [facility] Dec 28, 2009 08:21 AM V1-PT DECLINES REF TO TOBACCO CESS PRGM [facility] [place] [facility] Dec 28, 2009 08:21 AM V1-PT THINKING ABOUT QUIT TOBACCO USE [facility] [place] [facility] Mar 20, 2009 10:53 AM V1-PT DECLINES REF TO TOBACCO CESS PRGM [facility] [place] [facility] Mar 20, 2009 10:53 AM V1-PT DECLINES TOBACCO CESSATION MEDS [facility] [place] [facility] Mar 20, 2009 10:53 AM V1-PT NOT INTERESTED IN QUIT TOBACCO USE [facility] Mar 13, 2009 09:37 AM CURRENT SMOKER just when he is drinking. He can't stand it otherwise. [facility] Advance Directives: All historical and current Section Date Range: From patient's date of to the date document was created. This section includes ALL of a patient's completed or amended [place] Advance and Rescinded Directives. The entries below indicate that a directive exists for the patient, but an actual copy is not included with this document. The data comes from all [place] facilities. Date Advance Directives Provider Source Jun 08, 2014 ADVANCE DIRECTIVE TARYN VILLATORO [facility] Encounter Notes: All associated encounter notes [...] source for the followin. AF- Atrial Fibrillation ([facility] [id number]) 2. Abdominal aortic aneurysm 3.0 to 5.5 [...] if need be. Suicide Screen: C-SSRS Screening [place]-Suicide Severity Rating Scale (C-SSRS Screener) 1. Over [...] this [facility] (local) and dispensed from another [place] or [facility] facility (remote) as well as [...] JLV. Allergies/ADRs (Tool #5) FACILITY ALLERGY/ADR -------- [facility] M[facility]INE [place] [facility] [place] [facility] [place] [facility] [place] [facility] MORPHINE Med. Reconciliation (Tool #1) INCLUDED IN THIS LIST: Alphabetical list of active outpatient prescriptions dispensed from this [place] (local) and dispensed from another [place] or [facility] facility (remote) as well as inpatient orders (local pending and active), local clinic medications, locally documented non-VA medications, and local prescriptions that have or been discontinued in the past 90 days. Non-VA Meds Last Documented On: Mar 15, 2021 NOTE The display of VA prescriptions dispensed from another [place] or [facility] facility (remote) is limited to active outpatient prescription entries matched to National Drug File at the originating site and may not include some items such as investigational drugs, compounds, etc. NOT INCLUDED IN THIS LIST: Medications self-entered by the patient into personal health records (i.e. [employer]) are NOT included in this list. Non-VA medications documented outside this [place], remote inpatient orders (regardless of status) and remote clinic medications are NOT included in this list. The patient and provider must always discuss medications the patient is taking, regardless of where the medication was dispensed or obtained. OUTPT APIXABAN 5MG TAB (Status = Active) TAKE ONE TABLET BY MOUTH TWICE DAILY Rx# [id number] Last Released: 03/28/23 Qty/Days Supply: 180 Rx Expiration Date: 11/20/23 Refills Remainin OUTPT CARBOXYMETHYLCELLULOSE NA 0.5% OPH SOLN (Status = ) INSTILL 1 DROP INTO EACH EYE FOUR TIMES DAILY NEEDED FOR DRY EYE Rx# [id number] Last Released: 01/28/23 Qty/Days Supply: Rx Expiration Date: 03/27/23 Refills Remainin Indication: FOR DRY EYE OUTPT CARBOXYMETHYLCELLULOSE NA 0.5% OPH SOLN (Status = Pending) INSTILL 1 DROP INTO EACH EYE FOUR TIMES DAILY NEEDED FOR DRY EYE Renewed from Rx# [id number] Qty/Days Supply: Login Date: 04/17/23 Refills Ordered: 11 OUTPT DRONEDARONE 400MG TAB (Status = Active) TAKE ONE TABLET BY MOUTH TWICE DAILY Rx# [id number] Last Released: 01/28/23 Qty/Days Supply: Rx Expiration Date: 10/21/23 Refills Remainin Non-VA FISH OIL 500MG DHA/EPA CAP,ORAL TAKE BY MOUTH OUTPT LISINOPRIL 10MG TAB (Status = Active) TAKE ONE TABLET BY MOUTH ONCE DAILY TO CONTROL BLOOD PRESSURE Rx# [id number] Last Released: 01/28/23 Qty/Days Supply: Rx Expiration Date: 10/21/23 Refills Remainin Non-VA MULTIVITAMIN/MINERALS CAP/TAB TAKE ONE TABLET BY MOUTH EVERY DAY OUTPT OMEPRAZOLE 20MG EC CAP (Status = Active) TAKE ONE CAPSULE BY MOUTH EVERY DAY Rx# [id number] Last Released: 02/18/23 Qty/Days Supply: Rx Expiration Date: 10/21/23 Refills Remainin Non-VA ROSUVASTATIN TAB TAKE BY MOUTH Non-VA VITAMIN D3 (CHOLECALCIFEROL) TAB TAKE BY MOUTH SUPPLIES PHARMACY TERMS AND POSSIBLE PATIENT ACTIONS INPT = [place] inpatient order IV = [place] intravenous medication OUTPT = [place] outpatient prescription PHARMACY POSSIBLE PATIENT TERMS EXPLANATION ACTIONS -------- - ACTIVE A prescription that can be If you have refills, filled at the local [place] pharmacy. you may request a refill of this prescription from your [place] pharmacy. CLINIC A medication you received during If you have questions a visit to a [place] clinic or about this medication emergency department. contact your [place] healthcare team. DISCONTINUED A prescription your provider has Contact your [place] stopped. It is no longer healthcare team if you available to be sent to you or need more of this picked up at the [place] pharmacy medication. window. A prescription which is [...] the VA. Or, it may be an jmkf-[id number] (OTC), herbal, dietary supplements or sample medication. [...] Signed: 04/17/2023 08:27 [place] [facility]
--- OUTSIDE RECORDS SUMMARY | 2024-02-05 09:50 | XMS_ITS | Encounter Summary ---
Author Name [facility] [place] Organization [facility] [place] Address [address] [place] [address] Care Team Providers Care Banquet Line Cook Name Role Phone BLAISE MARTINEZ Primary Care [...] SUPPLEMEN ROHITH MEDEX 2 Aug 10, 2018 [id number] [phone] Cresencio GAYTAN PATIENT [place] SUPPLEMEN ROHITH MEDEX 2 Aug 10, 2018 [id number] [phone] Cresencio GAYTAN PATIENT [place] SUPPLEMEN ROHITH MEDEX 2 Aug 10, 2018 [id number] [phone] Cresencio GAYTAN PATIENT [place] SUPPLEMEN ROHITH MEDEX 2 Aug 10, 2018 [id number] Cresencio GAYTAN PATIENT [place] PREFERRED PROVIDER ORGANIZAT ION (PPO) [facility] Apr 10, 2009 [id number] Cresencio GAYTAN PATIENT CIGNA POINT OF SERVICE [facility] Aug 10, 2016 [id number] Cresencio GAYTAN PATIENT CIGNA BEHAVIORAL HEALTH MENTAL HEALTH [facility] Aug 10, 2016 [id number] Cresencio GAYTAN PATIENT CIGNA PHARMACY PRESCRIPT ION [facility] Aug 10, 2016 [id number] Cresencio GAYTAN PATIENT EXPRESS SCRIPTS ([id number]) PRESCRIPT ION [facility] A June 21, 2010 [id number] Cresencio GAYTAN PATIENT MEDICARE (WNR) MEDICARE (M) PART A Aug 10, 2018 PART A [id number] Cresencio GAYTAN PATIENT MEDICARE (WNR) MEDICARE (M) PART B Aug 10, 2018 PART B [id number] Cresencio GAYTAN PATIENT MEDICARE (WNR) MEDICARE (M) PART A Aug 10, 2018 PART A [id number] [phone] Cresencio GAYTAN PATIENT MEDICARE (WNR) MEDICARE (M) PART B Aug 10, 2018 PART B [id number] Cresencio GAYTAN PATIENT Selected Encounter This [...] [place] treatment facilities. Appointment Date/Time Appointment Type Appointme nt Facility Name Apr 17, 2023 07:30 AM AMBULATORY - MEDICINE [place] [facility] Apr 25, 2023 08:30 AM AMBUL[facility]ORY - NONE [facility] Apr 29, 2023 10:00 AM AMBULATORY - MEDICINE [facility] NTR[facility] Lab Results: +/- 30 days of the encounter This section includes the Chemistry and Hematology Lab Results on record with [place] for the patient. Radiology Reports and Pathology Reports are provided separately, in subsequent sections. Lab Results This section contains the Chemistry/Hematology Results that were resulted 30 days before or 30 daysafter the date of the Encounter. Date/Time Source Result Type Result - Unit Interpretation Reference Range Comment Apr 25, 2023 07:[address] [facility] LIPID PANEL FASTING Specimen Type: SERUM No comment entered. Ordering Provider: NAVA MARTINEZ Report Released Date/Time: Apr 16, 2023 11:34 AM Reporting Lab: [address] [address] Performing Lab: [address] [address] CHOLESTEROL 138 mg/dL TRIGLYCERIDE 83 mg/dL 0-150 LDL calculated 68 mg/dL 0-129 CHOL/HDL 2.6 HDL CHOLESTEROL 53 mg/dL 40-60 Apr 25, 2023 07:[address] [facility] LIVER FUNCTION Specimen Type: SERUM No comment entered. Ordering Provider: NAVA MARTINEZ Report Released Date/Time: Apr 16, 2023 11:34 AM Reporting Lab: [address] [address] Performing Lab: [address] [address] PROTEIN,TOTAL 7.3 g/dL 6.0-8.3 ALBUMIN 4.1 g/dL 3.5-5.0 ALKALINE PHOSPHATASE 75 U/L 40-150 AST 21 U/L 5-34 ALT 25 U/L BILIRUBIN, TOTAL 0.3 mg/dL 0.2-1.2 Apr 25, 2023 07:[address] [facility] BASIC METABOLIC PANEL (fasting) Specimen Type: SERUM No comment entered. Ordering Provider: NAVA MARTINEZ Report Released Date/Time: Apr 16, 2023 11:34 AM Reporting Lab: [facility] [address] [facility] [address] Performing Lab: [facility]USUSE[address] [address] UREA NITROGEN 16 mg/dL 7-25 GLUCOSE 99 mg/dL 65-100 SODIUM 140 mmol/L 135-145 POTASSIUM 4.5 mmol/L 3.5-5.0 CHLORIDE 103 mmol/L 100-110 CO2 27 meq/L 20-30 CREATININE, Serum 0.80 mg/dL 0.50-1.40 eGFR(CKD-EPI 2020) >90 mL/min >60 Apr 25, 2023 07:37 AM [facility] VITAMIN D (25-OH) Specimen Type: SERUM No comment entered. Ordering Provider: NAVA MARTINEZ Report Released Date/Time: Apr 16, 2023 11:34 AM Reporting Lab: [facility]USUSE[address] [address] Performing Lab: [facility]USUSE[address] [address] VITAMIN D (25-OH) 29 ng/mL 20-50 Apr 25, 2023 07:37 AM [facility] CBC AND DIFF (AUTO) Specimen Type: BLOOD No comment entered. Ordering Provider: NAVA MARTINEZ Report Released Date/Time: Apr 16, 2023 11:34 AM Reporting Lab: [facility] CAMPUSUSETS [address] [address] Performing Lab: [facility]USUSETS [address] [address] WBC 6.22 10*3/uL 4.50-11.00 RBC 4.24 10*6/uL 4.23-5.66 HGB 13.2 g/dL 12.8-17 HCT 38.6 L 39.2-50.4 MCV 91.0 fL 82-99 MCHC 34.2 g/dL 30.8-35.1 PLT 228 10*3/uL 140-360 RDW-CV 13.2 12.0-16.0 [place], Abs 0.62 10*3/uL 0.30-1.10 MCH 31.1 pg 26.2-32.6 Neut % 61.4 43.7-75.8 Lymph % 24.1 14.0-42.3 [place] % 10.0 5.1-13.7 Eos % 3.5 0.4-6.8 [...] and tobacco- related health factors from the [place] facility where the Encounter took place. Current Smoking Status This section includes the most current smoking, or tobacco-related health factor, from the [place] facility where the Encounter took place. Date/Time Current Smoking Status Comment [facility] Jul 19, 2021 10:25 AM VA-TOBACCO DOESNT USE WI 30 MIN WAKEUP [place] [facility] [facility] Tobacco Use History This section includes a history of the smoking, or tobacco-related health factors, that were collected on or before the date of the Encounter. The data comes from the [place] facility where the Encounter took place. 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 [facility] [place] [facility] Jul 19, 2021 10:25 AM VA-TOBACCO USE MED NO [facility] [place] [facility] Jul 19, 2021 10:25 AM VA-TOBACCO USER EVERY DAY [facility] [place] [facility] May 09, 2020 08:00 AM VA-TOBACCO FORMER USER [place] [facility] [place] [facility] May 09, 2020 08:00 AM VA-TOBACCO QUIT < 1 YEAR [facility] [place] [facility] Mar 23, 2019 09:01 AM VA-TOBACCO FORMER USER [place] [facility] [place] [facility] Mar 23, 2019 09:01 AM VA-TOBACCO QUIT 5 TO < 15 YRS [place] [facility] [place] [facility] Jan 19, 2018 08:24 AM VA-TOBACCO NEVER USED [place] [facility] [place] [facility] Jan 17, 2017 08:30 AM QUIT TOBACCO USE > 7 YEARS AGO [place] [facility] [place] [facility] Jan 17, 2017 08:30 AM QUIT TOBACCO USE 1-7 YEARS AGO [place] [facility] [place] [facility] Apr 19, 2016 01:06 PM QUIT TOBACCO USE 1-7 YEARS AGO [place] [facility] [place] [facility] May 05, 2014 08:45 AM QUIT TOBACCO USE 1-7 YEARS AGO [place] [facility] [place] [facility] Apr 08, 2013 08:46 AM QUIT TOBACCO USE 1-7 YEARS AGO . [place] [facility] [place] [facility] Jan 10, 2012 08:23 AM CURRENT SMOKER [place] [facility] [place] [facility] Jan 10, 2012 08:23 AM V1-PT DECLINES REF TO TOBACCO CESS PRGM [place] [facility] [place] [facility] Jan 10, 2012 08:23 AM V1-PT DECLINES TOBACCO CESSATION MEDS [place] [facility] [place] [facility] Jan 10, 2012 08:23 AM V1-PT THINKING ABOUT QUIT TOBACCO USE [place] [facility] [place] [facility] Apr 25, 2011 08:23 AM V1-PT DECLINES REF TO TOBACCO CESS PRGM [place] [facility] [place] [facility] Apr 25, 2011 08:23 AM V1-PT DECLINES TOBACCO CESSATION MEDS [facility] [place] [facility] Apr 25, 2011 08:23 AM V1-PT THINKING ABOUT QUIT TOBACCO USE [place] [facility] [facility] Aug 16, 2010 09:12 AM CURRENT SMOKER 1 pk per wk [facility] [place] [facility] Aug 16, 2010 09:12 AM V1-PT DECLINES REF TO TOBACCO CESS PRGM [facility] Aug 16, 2010 09:12 AM V1-PT DECLINES TOBACCO CESSATION MEDS [facility] Aug 16, 2010 09:12 AM V1-PT NOT INTERESTED IN QUIT TOBACCO USE [facility] Dec 28, 2009 08:21 AM V1-PT DECLINES REF TO TOBACCO CESS PRGM [facility] Dec 28, 2009 08:21 AM V1-PT THINKING ABOUT QUIT TOBACCO USE [facility] Mar 20, 2009 10:53 AM V1-PT DECLINES REF TO TOBACCO CESS PRGM [facility] Mar 20, 2009 10:53 AM V1-PT DECLINES TOBACCO CESSATION MEDS [facility] Mar 20, 2009 10:53 AM V1-PT NOT INTERESTED IN QUIT TOBACCO USE [facility] Mar 13, 2009 09:37 AM CURRENT SMOKER just when he is drinking. He can't stand it otherwise. [facility] Advance Directives: All historical and current [...] Jun 08, 2014 ADVANCE DIRECTIVE TARYN VILLATORO [facility] Encounter Notes: All associated encounter notes [...] and mailed per request. /samir/ YELITZA LIM [facility]ER [facility]INT Signed: 04/03/2023 10:42 YELITZA LIM [facility]
--- OUTSIDE RECORDS SUMMARY | 2024-02-05 09:51 | XMS_ITS | Patient Health Record ---
Author Organization [facility] Address [address] [place] [address] Care Team Providers Care Tool Adjuster Name Role Phone Vijay Biggs Primary Care Provider Unav ailable Black, Karime Unavailable [phone] Allergies Allergen (clinical drug ingredient) Drug/Non Drug [...] X ray : Foot, left 3V 06/20/2011 [id number] NAIL, 1-5 11/19/2012 [id number] NAIL, 1-5 11/18/[id number] TENDON SHEATH/LIGAMENT 1 50,[id number] TENDON SHEATH/LIGAMENT 0 06/20/[id number] TENDON SHEATH/LIGAMENT 1 Insurance Providers Payer Name Payer Address Payer Phone Subscriber Number Group Number Insured Name Patient Relationship to Insured Coverage Start Date Coverage End Date C[employer] [address] [place] [address] [phone] [id number] Marv Minaya Self - patient is the insured Medical (General) History Medical History History ICD Code neuropathy reflux mumps measles high blood pressure chicken pox back, hip, knee pain Arthritis Hypertension Heart Disease measles mumps chicken Pox bone implants and screws Surgical History Surgery Date(Month/Year) knee surgery neck surgery Hip replacement 09/2015 ablation 2013 Hospitalization History Reason Date(Month/Year) [facility], 3 days, CHF 04/2012
--- OUTSIDE RECORDS SUMMARY | 2024-02-05 09:51 | XMS_ITS | Encounter Summary ---
Author Name [facility] [place] [facility] [place] Organization [facility] [place] Address [address] [place] [address] Care Team Providers Care Range Management Specialist Name Role Phone BLAISE MARTINEZ Primary Care [...] SUPPLEMEN ROHITH MEDEX 2 Aug 10, 2018 [id number] [phone] Cresencio GAYTAN PATIENT [place] SUPPLEMEN ROHITH MEDEX 2 Aug 10, 2018 [id number] Cresencio GAYTAN PATIENT [place] SUPPLEMEN ROHITH MEDEX 2 Aug 10, 2018 [id number] Cresencio GAYTAN PATIENT [place] MED[place] SUPPLEMEN ROHITH MEDEX 2 Aug 10, 2018 [id number] [phone] Cresencio GAYTAN PATIENT [place] PREFERRED PROVIDER ORGANIZAT ION (PPO) [facility] Apr 10, 2009 [id number] Cresencio GAYTAN PATIENT CIGNA POINT OF SERVICE [facility] Aug 10, 2016 [id number] Cresencio GAYTAN PATIENT CIGNA BEHAVIORAL HEALTH MENTAL HEALTH [facility] Aug 10, 2016 [id number] Cresencio GAYTAN PATIENT CIGNA PHARMACY PRESCRIPT ION [facility] Aug 10, 2016 [id number] Cresencio GAYTAN PATIENT EXPRESS SCRIPTS ([id number]) PRESCRIPT ION BCBSM A June 21, 2010 [facility] [id number] [phone] Cresencio GAYTAN PATIENT MEDICARE (WNR) MEDICARE (M) PART A Aug 10, 2018 PART A [id number] Cresencio GAYTAN PATIENT MEDICARE (WNR) MEDICARE (M) PART B Aug 10, 2018 PART B [id number] [phone] Cresencio GAYTAN PATIENT MEDICARE (WNR) MEDICARE (M) PART A Aug 10, 2018 PART A [id number] Cresencio GAYTAN PATIENT MEDICARE (WNR) MEDICARE (M) PART B Aug 10, 2018 PART B [id number] [phone] Cresencio GAYTAN PATIENT Selected Encounter This section includes the information on record at [place] for the Encounter. Date/Time Encounter Type Encounter Description Reason Provider Source Apr 25, 2023 08:30 AM CLEAN/INSPECT MAX COMP DENT DENTAL ICD-10-CM K03.6 Deposits [accretions] on teeth BELKIESHA CARD HDA IHE Encounter Template Text not used by [place] Assessments - Encounter Diagnoses This section includes the primary and secondary diagnoses documented for the Encounter. Date/Time Primary/Secondary Diagnosis Diagnosis Name Provider Source Apr 25, 2023 09:37 AM PRIMARY Deposits [accretions] on teeth BELYSHEV,NADEZ HDA [place] [facility] [place] [facility] Plan of Treatment: Future Appointments (+ 6 months) and Future Tests (+/- 45 days) The Plan of Treatment section includes future care activities for the patient from [facility] This section includes future appointments and future orders which are active, pending or scheduled. Future Appointments This section includes appointments that were scheduled to occur 6 months from the date of the Encounter, up to a maximum of 20 appointments. The data comes from all [place] treatment facilities. Appointment Date/Time Appointment Type Appointme nt Facility Name Apr 29, 2023 10:00 AM [facility] Lab Results: +/- 30 days of the encounter This section includes the Chemistry and Hematology Lab Results on record with [place] for the patient. Radiology Reports and Pathology [...] Apr 16, 2023 11:34 AM Reporting Lab: [facility] [address] [facility] [address] Performing Lab: [facility] [address] [facility] [address] VITAMIN D (25-OH) 29 ng/mL 20-50 Apr 25, 2023 07:37 AM [facility] LIPID PANEL FASTING Specimen Type: SERUM No comment entered. Ordering Provider: NAVA MARTINEZ Report Released Date/Time: Apr 16, 2023 11:34 AM Reporting Lab: [facility] [address] [facility] [address] Performing Lab: [facility] [address] [facility] [address] CHOLESTEROL 138 mg/dL TRIGLYCERIDE 83 mg/dL 0-150 LDL calculated 68 mg/dL 0-129 CHOL/HDL 2.6 HDL CHOLESTEROL 53 mg/dL 40-60 Apr 25, 2023 07:37 AM [facility] LIVER FUNCTION Specimen Type: SERUM No comment entered. Ordering Provider: NAVA MARTINEZ Report Released Date/Time: Apr 16, 2023 11:34 AM Reporting Lab: [address] [address] Performing Lab: [address] [address] PROTEIN,TOTAL 7.3 g/dL 6.0-8.3 ALBUMIN 4.1 g/dL 3.5-5.0 ALKALINE PHOSPHATASE 75 U/L 40-150 AST 21 U/L 5-34 ALT 25 U/L BILIRUBIN, TOTAL 0.3 mg/dL 0.2-1.2 Apr 25, 2023 07:37 AM [facility] BASIC METABOLIC PANEL (fasting) Specimen Type: SERUM No comment entered. Ordering Provider: NAVA MARTINEZ Report Released Date/Time: Apr 16, 2023 11:34 AM Reporting Lab: [address] [address] Performing Lab: [address] [address] UREA NITROGEN 16 mg/dL 7-25 GLUCOSE 99 [...] Apr 16, 2023 11:34 AM Reporting Lab: [address] [address] Performing Lab: [address] [address] WBC 6.22 10*3/uL 4.50-11.00 RBC 4.24 10*6/uL 4.23-5.66 HGB 13.2 g/dL 12.8-17 HCT 38.6 L 39.2-50.4 MCV 91.0 fL 82-99 MCHC 34.2 g/dL 30.8-35.1 PLT 228 10*3/uL 140-360 RDW-CV 13.2 12.0-16.0 [place], Abs 0.62 10*3/uL 0.30-1.10 MCH 31.1 pg 26.2-32.6 Neut % 61.4 43.7-75.8 Lymph % 24.1 14.0-42.3 [place] % 10.0 5.1-13.7 Eos % 3.5 0.4-6.8 [...] and tobacco- related health factors from the [place] facility where the Encounter took place. Current Smoking Status This section includes the most current smoking, or tobacco-related health factor, from the [place] facility where the Encounter took place. Date/Time Current Smoking Status Comment [facility] Jul 19, 2021 10:25 AM VA-TOBACCO USER EVERY [facility] Tobacco Use History This section includes a history of the smoking, or tobacco-related health factors, that were collected on or before the date of the Encounter. The data comes from the [place] facility where the Encounter took place. Date/Time Smoking Status/Tobac co Use Comment Facility Jul 19, 2021 10:25 AM VA-TOBACCO USE 30 YEARS OR MORE [place] [facility] [place] [facility] Jul 19, 2021 10:25 AM VA-TOBACCO USE ADVICE [facility] Jul 19, 2021 10:25 AM VA-TOBACCO USE PHARMACIST CRITICAL CARE NO [place] [facility] [place] [facility] Jul 19, 2021 10:25 AM VA-TOBACCO USE MED NO [place] [facility] [place] [facility] Jul 19, 2021 10:25 AM VA-TOBACCO USER EVERY DAY [place] [facility] [place] [facility] May 09, 2020 08:00 AM VA-TOBACCO FORMER USER [place] [facility] [place] [facility] May 09, 2020 08:00 AM VA-TOBACCO QUIT < 1 YEAR [place] [facility] [place] [facility] Mar 23, 2019 09:01 AM VA-TOBACCO FORMER USER [place] [facility] [place] [facility] Mar 23, 2019 09:01 AM VA-TOBACCO QUIT 5 TO < 15 YRS [place] [facility] [place] [facility] Jan 19, 2018 08:24 AM VA-TOBACCO NEVER USED [place] [facility] [facility] Jan 17, 2017 08:30 AM QUIT TOBACCO USE > 7 YEARS AGO [place] [facility] [place] [facility] Jan 17, 2017 08:30 AM QUIT TOBACCO USE 1-7 YEARS AGO [place] [facility] [place] [facility] Apr 19, 2016 01:06 PM QUIT TOBACCO USE 1-7 YEARS AGO [place] [facility] [place] [facility] May 05, 2014 08:45 AM QUIT TOBACCO USE 1-7 YEARS AGO [place] [facility] [place] [facility] Apr 08, 2013 08:46 AM QUIT TOBACCO USE 1-7 YEARS AGO . [place] [facility] [place] [facility] Jan 10, 2012 08:23 AM CURRENT SMOKER [place] [facility] [place] [facility] Jan 10, 2012 08:23 AM V1-PT DECLINES REF TO TOBACCO CESS PRGM [facility] [place] [facility] Jan 10, 2012 08:23 AM V1-PT DECLINES TOBACCO CESSATION MEDS [facility] [place] [facility] Jan 10, 2012 08:23 AM V1-PT THINKING ABOUT QUIT TOBACCO USE [facility] [place] [facility] Apr 25, 2011 08:23 AM V1-PT DECLINES REF TO TOBACCO CESS PRGM [facility] [place] [facility] Apr 25, 2011 08:23 AM V1-PT DECLINES TOBACCO CESSATION MEDS [facility] [place] [facility] Apr 25, 2011 08:23 AM V1-PT [...] ALL of a patient's completed or amended [place] Advance and Rescinded Directives. The entries below indicate that a directive exists for the patient, but an actual copy is not included with this document. The data comes from all [place] facilities. Date Advance Directives Provider Source Jun 08, 2014 ADVANCE DIRECTIVE TARYN VILLATORO [facility] Encounter Notes: All associated encounter [...] PROVIDED: PROPHYLAXIS: hand scaling, mx dentur cleaned [place] CLEAN/INSPECT MAX COMP DENT. TOPICAL FLUORIDE APPLICATION [...] gomez 75 min /samir/ MARCUS YI [facility], DENTAL SERVICE Signed: 04/25/2023 09:37 MARCUS YI [facility] [place] [facility]
--- OUTSIDE RECORDS SUMMARY | 2024-02-05 09:51 | XMS_ITS | Encounter Summary ---
Author Name [facility] [place] Address [address] [place] [id number] Care Team Providers Care Behavioral Services Tech Name Role Phone DAO CASTRO Primary Care [...] SUPPLEMEN ROHITH MEDEX 2 Aug 10, 2018 [id number] [phone] Cresencio GAYTAN PATIENT [place] SUPPLEMEN ROHITH MEDEX 2 Aug 10, 2018 [id number] [phone] Cresencio GAYTAN PATIENT [place] SUPPLEMEN ROHITH MEDEX 2 Aug 10, 2018 [id number] Cresencio GAYTAN PATIENT [place] SUPPLEMEN ROHITH MEDEX 2 Aug 10, 2018 [id number] Cresencio GAYTAN PATIENT [place] PREFERRED PROVIDER ORGANIZAT ION (PPO) [facility] Apr 10, 2009 [id number] Cresencio GAYTAN PATIENT CIGNA POINT OF SERVICE [place] Aug 10, 2016 [id number] [phone] Cresencio GAYTAN PATIENT CIGNA BEHAVIORAL HEALTH MENTAL HEALTH [place] Aug 10, 2016 [id number] Cresencio GAYTAN PATIENT CIGNA PHARMACY PRESCRIPT ION [place] Aug 10, 2016 [id number] Cresencio GAYTAN PATIENT EXPRESS SCRIPTS ([id number]) PRESCRIPT ION BCBSM A June 21, 2010 [place] [id number] [phone] Cresencio GAYTAN PATIENT MEDICARE (WNR) MEDICARE (M) PART A Aug 10, 2018 PART A [id number] Cresencio GAYTAN PATIENT MEDICARE (WNR) MEDICARE (M) PART B Aug 10, 2018 PART B [id number] Cresencio GAYTAN PATIENT MEDICARE (WNR) MEDICARE (M) PART A Aug 10, 2018 PART A [id number] Cresencio GAYTAN PATIENT MEDICARE (WNR) MEDICARE (M) PART B Aug 10, 2018 PART B [id number] Cresencio GAYTAN PATIENT Selected Encounter This section includes the information on record at [place] for the Encounter. Date/Time Encounter Type Encounter Description Reason Pro vider Source Oct 27, 2023 08:43 AM Outpatient Encounter ADMIN PAT ACTIVTIES (MASNONCT) IHE Encounter Template Text not used by [place] Plan of Treatment: Future Appointments (+ 6 months) and Future Tests (+/- 45 days) The Plan of Treatment section includes future care activities for the patient from all [place] treatmentfacilities. This section includes future appointments and future orders which are active, pending or scheduled. Future Appointments This section includes appointments that were scheduled to occur 6 months from the date of the Encounter, up to a maximum of 20 appointments. The data comes from all [place] treatment facilities. Appointment Date/Time Appointment Type Appointme nt Facility Name Feb 20, 2024 08:30 AM AMBULATORY - NONE [facility] [place] [facility] Apr 22, 2024 07:30 AM AMBULATORY - MEDICINE [facility] [place] [facility] Social History: Smoking Status (Most current) and Tobacco Use (All prior to encounter date) This section includes the most current, and the historical, smoking and tobacco- related health factors from the AR facility where the Encounter took place. Current Smoking Status This section includes the most current smoking, or tobacco-related health factor, from the AR facility where the Encounter took place. Date/Time Current Smoking Status Comment Facil it Apr 29, 2023 10:00 AM VA-TOBACCO USER EVERY DAY [facility] [place] [facility] Tobacco Use History This section includes a history of the smoking, or tobacco-related health factors, that were collected on or before the date of the Encounter. The data comes from the [place] facility where the Encounter took place. Date/Time Smoking Status/Tobac co Use Comment [facility] Apr 29, 2023 10:00 AM VA-TOBACCO USE ADVICE [facility] [place] [facility] Apr 29, 2023 10:00 AM VA-TOBACCO USE SSAS DEVELOPER NO [facility] [place] [facility] Apr 29, 2023 10:00 AM VA-TOBACCO USE MED NO [facility] [place] [facility] Apr 29, 2023 10:00 AM VA-TOBACCO USE WI 30 MIN OF WAKEUP [facility] [place] [facility] Apr 29, 2023 10:00 AM VA-TOBACCO USER EVERY DAY [facility] [place] [facility] Jul 19, 2021 10:25 AM VA-TOBACCO DOESNT USE WI 30 MIN WAKEUP [facility] [place] [facility] Jul 19, 2021 10:25 AM VA-TOBACCO USE 30 YEARS OR MORE [facility] [place] [facility] Jul 19, 2021 10:25 AM VA-TOBACCO USE ADVICE [facility] [place] [facility] Jul 19, 2021 10:25 AM VA-TOBACCO USE SSAS DEVELOPER NO [facility] [place] [facility] Jul 19, 2021 10:25 AM VA-TOBACCO USE MED NO [facility] [place] [facility] Jul 19, 2021 10:25 AM VA-TOBACCO USER EVERY DAY [facility] [place] [facility] May 09, 2020 08:00 AM VA-TOBACCO FORMER USER [facility] [place] [facility] May 09, 2020 08:00 AM VA-TOBACCO QUIT < 1 YEAR [facility] [place] [facility] Mar 23, 2019 09:01 AM VA-TOBACCO FORMER USER [facility] [place] [facility] Mar 23, 2019 09:01 AM VA-TOBACCO QUIT 5 TO < 15 YRS [facility] [place] [facility] Jan 19, 2018 08:24 AM VA-TOBACCO NEVER USED [facility] [place] [facility] Jan 17, 2017 08:30 AM QUIT TOBACCO USE > 7 YEARS AGO [facility] [place] [facility] Jan 17, 2017 08:30 AM QUIT TOBACCO USE 1-7 YEARS AGO [facility] [place] [facility] Apr 19, 2016 01:06 PM QUIT TOBACCO USE 1-7 YEARS AGO [facility] [place] [facility] May 05, 2014 08:45 AM QUIT TOBACCO USE 1-7 YEARS AGO [facility] [place] [facility] Apr 08, 2013 08:46 AM QUIT TOBACCO USE 1-7 YEARS AGO . [facility] [place] [facility] Jan 10, 2012 08:23 AM CURRENT SMOKER [facility] [place] [facility] Jan 10, 2012 08:23 AM V1-PT DECLINES REF TO TOBACCO CESS PRGM [facility] [place] [facility] Jan 10, 2012 08:23 AM V1-PT DECLINES TOBACCO CESSATION MEDS [facility] [place] [facility] Jan 10, 2012 08:23 AM V1-PT THINKING ABOUT QUIT TOBACCO USE [facility] [place] [facility] Apr 25, 2011 08:23 AM V1-PT DECLINES REF TO TOBACCO CESS PRGM [facility] [place] [facility] Apr 25, 2011 08:23 AM V1-PT DECLINES TOBACCO CESSATION MEDS [facility] [place] [facility] Apr 25, 2011 08:23 AM V1-PT THINKING ABOUT QUIT TOBACCO USE [facility] [place] [facility] Aug 16, 2010 09:12 AM CURRENT SMOKER 1 pk per wk [facility] [place] [facility] Aug 16, 2010 09:12 AM V1-PT DECLINES REF TO TOBACCO CESS PRGM [facility] Aug 16, 2010 09:12 AM V1-PT DECLINES TOBACCO CESSATION MEDS [facility] Aug 16, 2010 09:12 AM V1-PT NOT INTERESTED IN QUIT TOBACCO USE [facility] Dec 28, 2009 08:21 AM V1-PT [facility] Dec 28, 2009 08:21 AM V1-PT THINKING ABOUT QUIT TOBACCO USE [facility] Mar 20, 2009 10:53 AM V1-PT DECLINES REF TO TOBACCO CESS PRGM [facility] Mar 20, 2009 10:53 AM V1-PT DECLINES TOBACCO CESSATION MEDS [facility] Mar 20, 2009 10:53 AM V1-PT NOT INTERESTED IN QUIT TOBACCO USE [facility] Mar 13, 2009 09:37 AM CURRENT SMOKER just when he is drinking. He can't stand it otherwise. [facility] Advance Directives: All historical and current Section Date Range: From patient's date of to the date document was created. This section includes ALL of a patient's completed or amended [place] Advance and Rescinded Directives. The entries below indicate that a directive exists for the patient, but an actual copy is not included with this document. The data comes from all [place] facilities. Date Advance Directives Provider Source Jun 08, 2014 ADVANCE DIRECTIVE TARYN VILLATORO [facility] Encounter Notes: All associated encounter notes This section contains the clinical notes associated to the Encounter. Date/Time Encounter Note(s) Provider Source Oct 27, 2023 08:43 AM MEDICATION MGT NOT E: [facility] TITLE: MEDICATION RENEWAL STANDARD TITLE: MEDICATION MGT [...] E> 10-20 0 90 /es/ BRIAN FREEMAN TRAFFIC SAFETY ADMINISTRATOR Signed: 10/27/2023 08:45 Receipt Acknowledged By: 10/30/2023 17:49 /samir/ Doa Castro PA-C STAFF PHYSICIAN SECRETARIAL STENOGRAPHER BRIAN FREEMAN [facility]
--- OUTSIDE RECORDS SUMMARY | 2024-02-05 09:51 | XMS_ITS | Encounter Summary ---
Author Name [facility] [place] Address [address] [place] [address] Care Team Providers Care Probate Clerk Name Role Phone DAO CASTRO Primary Care [...] SUPPLEMEN ROHITH MEDEX 2 Aug 10, 2018 [id number] Cresencio GAYTAN PATIENT [place] SUPPLEMEN ROHITH MEDEX 2 Aug 10, 2018 [id number] Cresencio GAYTAN PATIENT [place] SUPPLEMEN ROHITH MEDEX 2 Aug 10, 2018 [id number] Cresencio GAYTAN PATIENT [place] MEDICARE SUPPLEMEN ROHITH MEDEX 2 Aug 10, 2018 [id number] Cresencio GAYTAN PATIENT [place] PREFERRED PROVIDER ORGANIZAT ION (PPO) [facility] Apr 10, 2009 [id number] Cresencio GAYTAN PATIENT CIGNA POINT OF SERVICE [facility] Aug 10, 2016 [id number] Cresencio GAYTAN PATIENT CIGNA BEHAVIORAL HEALTH MENTAL HEALTH [facility] Aug 10, 2016 [id number] Cresencio GAYTAN PATIENT CIGNA PHARMACY PRESCRIPT ION [facility] Aug 10, 2016 [id number] Cresencio GAYTAN PATIENT EXPRESS SCRIPTS ([id number]) PRESCRIPT ION BCBSM A June 21, 2010 [place] [id number] Cresencio GAYTAN PATIENT MEDICARE (WNR) MEDICARE () PART A Aug 10, 2018 PART A [id number] [phone] Cresencio GAYTAN PATIENT MEDICARE (WNR) MEDICARE () PART B Aug 10, 2018 PART B [id number] Cresencio GAYTAN PATIENT MEDICARE (WNR) MEDICARE (M) PART A Aug 10, 2018 PART A [id number] [phone] Cresencio GAYTAN PATIENT MEDICARE (WNR) MEDICARE () PART B Aug 10, 2018 PART B [id number] [phone] Cresencio GAYTAN PATIENT Selected Encounter This section includes the information on record at [place] for the Encounter. Date/Time Encounter Type Encounter Description Reason Provider Source Apr 29, 2023 10:00 AM OFFICE O/P EST MOD 30 MIN PRIMARY CARE/MEDICINE ICD-10-CM Z77.29 Contact with and exposure to other hazardous substances PEYTON CASTRO IHE Encounter Template Text not used by [place] Assessments - Encounter Diagnoses This section includes the primary and secondary diagnoses documented for the Encounter. Date/Time Primary/Secondary Diagnosis Diagnosis Name Provider Source May 13, 2023 01:46 PM PRIMARY Contact with and exposure to other hazardous substances NAVA CASTRO [facility] [place] [facility] May 13, 2023 01:46 PM SECONDARY Essential (primary) hypertension NAVA CASTRO [facility] Lab Results: +/- 30 days of the encounter This section includes the Chemistry and Hematology Lab Results on record with [place] for the patient. Radiology Reports and Pathology Reports are provided separately, in subsequent sections. Lab Results This section contains the Chemistry/Hematology Results that were resulted 30 days before or 30 daysafter the date of the Encounter. Date/Time Source Result Type Result - Unit Interpretation Reference Range Comment Apr 25, 2023 07:37 AM [facility] LIVER FUNCTION Specimen Type: SERUM No comment entered. Ordering Provider: NAVA CASTRO Report Released Date/Time: Apr 16, 2023 11:34 AM Reporting Lab: [address] [address] Performing Lab: [address] [address] PROTEIN,TOTAL 7.3 g/dL 6.0-8.3 ALBUMIN 4.1 g/dL 3.5-5.0 ALKALINE PHOSPHATASE 75 U/L 40-150 AST 21 U/L 5-34 ALT 25 U/L BILIRUBIN, TOTAL 0.3 mg/dL 0.2-1.2 Apr 25, 2023 07:37 AM [facility] LIPID PANEL FASTING Specimen Type: SERUM No comment entered. Ordering Provider: NAVA CASTRO Report Released Date/Time: Apr 16, 2023 11:34 AM Reporting Lab: [address] [address] Performing Lab: [address] [address] CHOLESTEROL 138 mg/dL TRIGLYCERIDE 83 mg/dL 0-150 LDL calculated 68 mg/dL 0-129 CHOL/HDL 2.6 HDL CHOLESTEROL 53 mg/dL 40-60 Apr 25, 2023 07:37 AM [facility] BASIC METABOLIC PANEL (fasting) Specimen Type: SERUM No comment entered. Ordering Provider: NAVA CASTRO Report Released Date/Time: Apr 16, 2023 11:34 AM Reporting Lab: [address] [address] Performing Lab: [address] [address] UREA NITROGEN 16 mg/dL 7-25 GLUCOSE 99 mg/dL 65-100 SODIUM 140 mmol/L 135-145 POTASSIUM 4.5 mmol/L 3.5-5.0 CHLORIDE 103 mmol/L 100-110 CO2 27 meq/L 20-30 CREATININE, Serum 0.80 mg/dL 0.50-1.40 eGFR(CKD-EPI 2020) >90 mL/min >60 Apr 25, 2023 07:37 AM [facility] VITAMIN D (25-OH) Specimen Type: SERUM No comment entered. Ordering Provider: NAVA CASTRO Report Released Date/Time: Apr 16, 2023 11:34 AM Reporting Lab: [address] [address] Performing Lab: [address] [address] VITAMIN D (25-OH) 29 ng/mL 20-50 Apr 25, 2023 07:37 AM [facility] CBC AND DIFF (AUTO) Specimen Type: BLOOD No comment entered. Ordering Provider: NAVA CASTRO Report Released Date/Time: Apr 16, 2023 11:34 AM Reporting Lab: [address] [address] Performing Lab: [address] [address] WBC 6.22 10*3/uL 4.50-11.00 RBC 4.24 10*6/uL 4.23-5.66 HGB 13.2 g/dL 12.8-17 HCT 38.6 L 39.2-50.4 MCV 91.0 fL 82-99 MCHC 34.2 g/dL 30.8-35.1 PLT 228 10*3/uL 140-360 RDW-CV 13.2 12.0-16.0 [place], Abs 0.62 10*3/uL 0.30-1.10 MCH 31.1 pg 26.2-32.6 Neut % 61.4 43.7-75.8 Lymph % 24.1 14.0-42.3 [place] % 10.0 5.1-13.7 Eos % 3.5 0.4-6.8 [...] 88 130/80 16 98 5 302 39 [facility] Social History: Smoking Status (Most current) and Tobacco Use (All prior to encounter date) This section includes the most current, and the historical, smoking and tobacco- related health factors from the [place] facility where the Encounter took place. Current Smoking Status This section includes the most current smoking, or tobacco-related health factor, from the [place] facility where the Encounter took place. Date/Time Current Smoking Status Comment Corrina barr Apr 29, 2023 10:00 AM VA-TOBACCO USER EVERY DAY [facility] Tobacco Use History This section includes a history of the smoking, or tobacco-related health factors, that were collected on or before the date of the Encounter. The data comes from the [place] facility where the Encounter took place. Date/Time Smoking Status/Tobac co Use Comment Facility Apr 29, 2023 10:00 AM VA-TOBACCO USE ADVICE [facility] Apr 29, 2023 10:00 AM VA-TOBACCO USE [facility]AL[facility] Apr 29, 2023 10:00 AM [facility]-TOBACCO USE MED NO [facility] Apr 29, 2023 10:00 AM VA-TOBACCO USE [place] 30 MIN OF WAKEUP [place] [facility] [facility] Apr 29, 2023 10:00 AM VA-TOBACCO USER EVERY DAY [facility] [place] [facility] Jul 19, 2021 10:25 AM VA-TOBACCO DOESNT USE WI 30 MIN WAKEUP [place] [facility] [place] [facility] Jul 19, 2021 10:25 AM VA-TOBACCO USE 30 YEARS OR MORE [place] [facility] [place] [facility] Jul 19, 2021 10:25 AM VA-TOBACCO USE ADVICE [place] [facility] [place] 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 Jul 19, 2021 10:25 AM VA-TOBACCO USE MED NO [facility] [place] [facility] Jul 19, 2021 10:25 AM VA-TOBACCO USER EVERY DAY [place] [facility] [place] [facility] May 09, 2020 08:00 AM VA-TOBACCO FORMER USER [place] [facility] [place] [facility] May 09, 2020 08:00 AM VA-TOBACCO QUIT < 1 YEAR [place] [facility] [place] [facility] Mar 23, 2019 09:01 AM VA-TOBACCO FORMER USER [place] [facility] [place] [facility] Mar 23, 2019 09:01 AM VA-TOBACCO QUIT 5 TO < 15 YRS [facility] [place] [facility] Jan 19, 2018 08:24 AM VA-TOBACCO NEVER USED [place] [facility] [place] [facility] Jan 17, 2017 08:30 AM QUIT TOBACCO USE > 7 YEARS AGO [facility] [place] [facility] Jan 17, 2017 08:30 AM QUIT TOBACCO USE 1-7 YEARS AGO [facility] [place] [facility] Apr 19, 2016 01:06 PM QUIT TOBACCO USE 1-7 YEARS AGO [facility] [place] [facility] May 05, 2014 08:45 AM QUIT TOBACCO USE 1-7 YEARS AGO [facility] [place] [facility] Apr 08, 2013 08:46 AM QUIT TOBACCO USE 1-7 YEARS AGO . [place] [facility] [place] [facility] Jan 10, 2012 08:23 AM CURRENT SMOKER [facility] [place] [facility] Jan 10, 2012 08:23 AM V1-PT DECLINES REF TO TOBACCO CESS PRGM [facility] [place] [facility] Jan 10, 2012 08:23 AM V1-PT DECLINES TOBACCO CESSATION MEDS [facility] [place] [facility] Jan 10, 2012 08:23 AM V1-PT THINKING ABOUT QUIT TOBACCO USE [facility] [place] [facility] Apr 25, 2011 08:23 AM V1-PT DECLINES REF TO TOBACCO CESS PRGM [facility] [place] [facility] Apr 25, 2011 08:23 AM V1-PT DECLINES TOBACCO CESSATION MEDS [facility] Apr 25, 2011 08:23 AM V1-PT THINKING ABOUT QUIT TOBACCO USE [facility] [place] [facility] Aug 16, 2010 09:12 AM CURRENT SMOKER 1 pk per wk [facility] Aug 16, 2010 09:12 AM V1-PT DECLINES REF TO TOBACCO CESS PRGM [facility] Aug 16, 2010 09:12 AM V1-PT DECLINES TOBACCO CESSATION MEDS [facility] Aug 16, 2010 09:12 AM V1-PT NOT INTERESTED IN QUIT TOBACCO USE [facility] [place] [facility] Dec 28, 2009 08:21 AM V1-PT DECLINES REF TO TOBACCO CESS PRGM [facility] Dec 28, 2009 08:21 AM V1-PT THINKING ABOUT QUIT TOBACCO USE [facility] [place] [facility] Mar 20, 2009 10:53 AM V1-PT DECLINES REF TO TOBACCO CESS PRGM [facility] [place] [facility] Mar 20, 2009 10:53 AM V1-PT DECLINES TOBACCO CESSATION MEDS [facility] [place] [facility] Mar 20, 2009 10:53 AM V1-PT NOT INTERESTED IN QUIT TOBACCO USE [facility] [place] [facility] Mar 13, 2009 09:37 AM CURRENT SMOKER just when he is drinking. He can't stand it otherwise. [facility] Advance Directives: All historical and current Section Date Range: From patient's date of to the date document was created. This section includes ALL of a patient's completed or amended [place] Advance and Rescinded Directives. The entries below indicate that a directive exists for the patient, but an actual copy is not included with this document. The data comes from all [place] facilities. Date Advance Directives Provider Source Jun 08, 2014 ADVANCE DIRECTIVE TARYN VILLATORO [place] [facility] Encounter Notes: All associated encounter notes This section contains the clinical notes associated to the Encounter. Date/Time Encounter Note(s) Provider Source Apr 29, 2023 10:04 AM PHYSICIAN BLUING OVEN TENDER NOTE: LOCAL TITLE: PA NOTE STANDARD TITLE: PHYSICIAN BLUING OVEN TENDER NOTE DATE OF NOTE: APR 29, 2023@10:04 [...] source for the followin. AF- Atrial Fibrillation ([facility] [id number]) 2. Abdominal aortic aneurysm 3.0 to 5.5 centimeters in male 3. Family history of colorectal cancer 4. History of total hip arthroplasty Left THR, [facility]. 5. Hernia, Ventral 6. PTSD 7. [...] an Advance Directive on file at this [facility]. No updates are needed at this time. The patient received education about Advance Directives and written notification of his/her rights. 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 was discussed and offered to the Ava. After discussing the health risks of being overweight or obese and providing information about available weight management treatment, and offering a referral to MOVE or another weight management treatment program outside the [facility], the patient DECLINES REFERRAL to MOVE or any other weight management treatment program at this time. FH of colon cancer, He reports a normal colonoscsopy about 2 years ago at [facility]. I do not find in [place]. Please check and update remdinder, probably a 5 year recall. Despite asking 3 times, he does not answer IF you are due, should I order so if he is due now, notify him. /samir/ Dao Castro PA-C STAFF PHYSICIAN BLUING OVEN TENDER Signed: 04/29/2023 10:20 Receipt Acknowledged By: 04/30/2023 08:56 /samir/ DOTTIE CHILEL RN REGISTERED NURSE 04/30/2023 ADDENDUM STATUS: COMPLETED records requested. /quinton CHILEL RN REGISTERED NURSE Signed: 04/30/2023 08:56 DAO CASTRO [place] [facility] Apr 29, 2023 09:54 AM PREVENTIVE MEDICINE [...] Not worried about housing near future The Ava reports the following: Within the past 12 [...] to protect and improve your health and [place] has the resources to support you. - [...] behavioral changes to help you quit. - [place] has a number of behavioral counseling options to help you with quitting, including: * Provide information about the facility smoking or tobacco use treatment options or clinics * [place]'s national quitline, 9-543-VOCX-VET, with counseling available Friday-Friday The patient was [...] GOMEZ LPN Signed: 04/29/2023 09:59 KINA GOMEZ [place] [facility] [facility]
--- NOTE | 2024-02-05 09:52 | MHC.OFFVIS ---
Intake Visit Reasons: follow up s/p US 01/14/24 Intake Note: Follow up US. No complaints. Accompanied by: Self / Same As Patient Allergies morphine [MORPHINE] Allergy (Severe, Verified 02/05/24 09:53) severe aggitation sulfamethoxazole [From Bactrim] Adverse Reaction (Intermediate, Verified 02/05/24 09:53) anxiety trimethoprim [From Bactrim] Adverse Reaction (Intermediate, Verified 02/05/24 09:53) anxiety HPI HPI follow up s/p US 01/14/24: Details: Marv is presenting today for a follow up to US performed on 01/14/24. He continues with right lower extremity pain with a tibial varicosity. There have been no changes in the pain. He has a hx of left lower extremity micro in 2021. [facility] Medical History Arthritis On anticoagulant therapy Murmur Routine medical exam Major depression, recurrent, chronic Skin cancer CAD (coronary artery disease) Hypertension Hyperlipemia PAF (paroxysmal atrial fibrillation) History of cardioversion Hx of skin cancer, basal cell PTSD (post-traumatic stress disorder) BPH (benign prostatic hyperplasia) AAA (abdominal aortic aneurysm) Anxiety and depression Anemia Diverticulosis GERD (gastroesophageal reflux disease) Sleep apnea Surgical History History of total right knee replacement Status post lumbar microdiscectomy Hx of blepharoplasty History of prostate surgery H/O vein stripping (~06/08/21) Hx of arthroscopy of left knee Hx of cardiac catheterization H/O umbilical hernia repair History of incision and drainage Hx of tonsillectomy History of esophagogastroduodenoscopy (EGD) History of cardiac radiofrequency ablation Hx of colonoscopy Hx of right knee surgery History of total left hip arthroplasty Family History Father Esophageal cancer Mother Esophageal cancer Social History Household Members: Family Housing: House Are you a primary career technical education teacher to a significant other at home: No Do you presently have visiting nurse or other home services: No Alcohol intake: former Comment: All counts correct Patient Tobacco Use Status: Current someday Tobacco user Tobacco use type: Cigarette Cigarettes Per Day: 2 Years Smoked: 25 e-Cigarette/Vaping Use: Never Used Second Hand Smoke Exposure: No Substance Use Type: Marijuana Advance Directives Date on File: 04/27/12 service: No Current occupational status: retired Cognitive needs: No Hearing needs: No Vision needs: No Review of Systems Const Reports as per HPI and Denies weakness ENT Reports Normal hearing present and Denies dizziness Card Reports as per HPI, Denies chest pain, Denies chest pain at rest, Denies chest pain with activity, Denies dyspnea and Denies dyspnea on exertion Resp Reports as per HPI, Denies cough, Denies dyspnea and Denies dyspnea on exertion GI Reports as per HPI, Denies abdominal pain, Denies nausea and Denies vomiting Musc Denies numbness Skin/Breast Reports as per HPI, Denies erythema and Denies wounds Neuro Reports Normal hearing present, Denies dizziness, Denies numbness, Denies Sensory deficit (Neuro) and Denies weakness Psych Reports no additional complaints Endo Reports no additional complaints Physical Exam Const General: healthy appearing and no acute distress Orientation/consciousness: patient oriented x3 HEENT Head: Yes normal to inspection Ears: hearing grossly normal bilaterally Mouth: Normal oral and palatal mucosa present Resp Effort & Inspection: normal respiratory effort and able to speak in complete sentences Auscultation: clear to auscultation bilaterally Cardio Jugular venous distension: no JVD Rate: regular rate Rhythm: regular rhythm Heart sounds: S1 normal heart sound present and S2 normal heart sound present Bruits: no abdominal aortic bruits, no carotid bruits, no femoral bruits and no renal bruits Peripheral pulses: Peripheral pulses 2+ throughout GI Inspection: Yes normal to inspection Palpation (GI): No Abdominal aortic bruit present Skin General skin exam: no rashes or lesions noted Wounds: no wounds Hair: normal Neuro General: patient oriented x3 Cranial nerves: Yes Normal hearing present Cognition (Neuro): normal cognition Gait exam (Neuro): Normal gait present Motor exam (neuro): 5/5 motor strength present throughout Sensory Exam: No Sensory deficit (Neuro) Extrem Other: RLE: painful to palpation tortuosity noted over the tibial area of the leg. Trace edema noted. General: Yes normal to inspection, Yes full ROM, Yes capillary refill normal and Yes normal gait Results Reviewed Results Reviewed: Brief summary of venous insufficiency testing is as follows: right great saphenous vein: negative right small saphenous vein: negative right accessory vein: none present left great saphenous vein: negative left small saphenous vein: negative left accessory vein: none present Please note there is no evidence of any venous aneurysms or significant tortuosity Assessment & Plan Assessment & Plan (1) Varicose veins of both lower extremities: Code(s): I83.93 - Asymptomatic varicose veins of bilateral lower extremities Category: Medical Qualifiers: Varicose vein complication: pain Qualified Code(s): I83.813 - Varicose veins of bilateral lower extremities with pain Plan: Marv is presenting today for a follow up to US testing, performed on 01/13. He continues to endorse right lower extremity pain. He was negative for venous insufficiency on US. We discussed to continue to elevate and start wearing compression stockings, marlon when walking/standing/physical activity. We discussed the importance of physical activity. We discussed that if there were any other concerns that came up, he can reach back out to us. We discussed to reach back out to his PCP for further evaluation/treatment of the right lower leg. He states he is getting to the gym and working out again. If there are any questions or concerns, please do not hesitate to reach out to us. Coding Level of Care Code Est Pt Level 4 (40131) Diagnoses Varicose veins of both lower extremities with pain I83.813 Varicose vein complication: pain Comment review of US
== END 2024-02-05 10:00 | disposition home or self-care (01) ==
PROVIDERS: PCP Nurse Practitioner Family; Visit Provider Physician Assistant Surgical
DX: I83.813 Varicose veins of bilateral lower extremities with pain (principal)
CPT/HCPCS: 99214

== ENCOUNTER → 2024-02-05 09:47 | Outpatient (BNVA) | payer MEDICARE, SELFPAY | PROVIDERS: PCP Nurse Practitioner Family; Visit Provider Physician Assistant Surgical | DX: I83.813 Varicose veins of bilateral lower extremities with pain (principal) | CPT/HCPCS: 99212 ==

== ENCOUNTER → 2024-02-23 07:44 | Outpatient (REF) | payer MEDICARE, SELFPAY ==
--- NOTE | 2024-02-23 07:47 | CA_ITS ---
Transthoracic Echocardiogram Patient (Last, First, Middle): Marv Minaya E Gender: Male Date of : 1955 Age: 68 Procedure Date: 02/23/2024 Procedure Type: Transthoracic Echocardiogram Location: OP Height: 187.96 cm Weight: 122.02 kg BSA: 2.46 m2 Heart Rate: 74 bpm BP: 122 / 74 mmHg Tour Driver: BRENNEN Referring MD: Cristopher Schuster MD Symptoms: I71.20 - Thoracic aortic aneurysm, without rupture, unspecified Study Quality: Adequate w contrast ECG Rhythm: Sinus Conclusions: - The left ventricular systolic function is hyperdynamic. The visually estimated ejection fraction is >70%. - Likely severe septal hypertrophy (about 1.8-1.9cm). - There is moderate calcification of the aortic valve. There is mild aortic valve stenosis. Increased stroke volume also contributes to elevated gradients. - There is mild dilatation of the ascending aorta measuring 4.20 cm. - Consider cMRI if clinically indicated. Findings Procedure Information Contrast agent, definity, is being given per protocol without apparent complications. Left Ventricle Normal left ventricular cavity size. The left ventricular systolic function is hyperdynamic. The visually estimated ejection fraction is >70%. There is no evidence of regional wall motion abnormalities. Diastolic function is normal for age. Likely severe septal hypertrophy. Right Ventricle Mildly increased right ventricular cavity size. There is normal right ventricular systolic function. Atria Both atria are normal in size. Aortic Valve There is moderate calcification of the aortic valve. There is mild aortic valve stenosis. There is no aortic valve regurgitation. Increased stroke volume also contributes to elevated gradients. Mitral Valve There is mild anterior mitral leaflet thickening. There is no mitral valve regurgitation. There is no mitral valve stenosis. Pulmonic Valve The pulmonic valve is likely normal. Tricuspid Valve Normal tricuspid valve structure. There is trace tricuspid valve regurgitation. There is no evidence of pulmonary hypertension. Great Vessels The aortic arch is normal in size. There is mild dilatation of the ascending aorta measuring 4.20 cm. Venous The inferior vena cava was not well visualized. Pericardium/Pleural There is no evidence of pericardial effusion. Prior Study Comparison Changes noted compared to prior study dated: 01/14/2023. Measurements 2D Linear Measurements IVSd: 0.78 0.6-0.9/0.6-1.0 cm LVIDd: 6.77 3.9-5.3/4.2-5.9 cm LVIDd Index: 2.75 2.4-3.2/2.2-3.1 cm/m2 LVIDs: 3.97 2.0-3.6 cm LVPWd: 0.85 0.7-1.1 cm LA Diam: 3.80 2.7-3.8/3.0-4.0 cm LAIDs Index: 1.54 1.5-2.3 cm/m2 LV Mass: 294.81 67-162/88-224 g LV Mass Index: 119.84 43-95/49-115 g/m2 LVOT Diam: 2.50 3.0+(-)1.3 cm 2D Systolic Function EF 4C: 79.00 >55% EF 2C: 78.80 >55% EF BiP: 78.50 >55% Mitral Valve MV Pk E: 0.71 MV PK A: 0.65 MV Decel Time: 232.00 E/A: 1.10 E'Lateral: 7.07 E'Medial: 6.85 E/E' Med: 10.40 E/E' Lat: 10.10 PHT: 68.00 MVA PHT: 3.24 Decel [place]: 3.06 Aortic Valve AoV Pk John: 3.22 AoV Mn John: 2.14 AoV VTI: 0.68 AoV Pk Grad: 41.00 Aov Mn Grad: 22.00 GREGORIA Cont.VTI: 2.29 LVOT LVOT Pk John: 1.64 LVOT Mn John: 1.04 LVOT VTI: 0.32 LVOT Pk Grad: 11.00 LVOT Mn Grad: 5.00 LVOT Diam: 2.50 LVOT Area: 4.91 Diastolic Function MV Pk E: 0.71 MV Pk A: 0.65 E/A: 1.10 E'Medial: 6.85 E/E' Med: 10.40 E' Laterial: 7.07 E/E' Lat: 10.10 Right Ventricle TAPSE (mm): 25.90 TVS' John: 21.10 Great Vessels Aorta Sinus of Valsalva: 4.00 2.0-3.5 cm Ao Asc: 4.20 2.1-3.4 cm Ao Arch: 3.00 Pulmonary Valve PV Pk John: 0.90 Peak PV Grad: 3.00 Updated in Other Vendor System with Status of Final Richard Person MD electronically signed on 02/24/2024 10:00:59 AM with status of Final
--- OUTSIDE RECORDS SUMMARY | 2024-02-23 07:47 | XMS_ITS | Encounter Summary ---
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 Role Phone BLAISE MARTINEZ Primary Care [...] Name Patient's Relationship to Policy Greco [place] MED[place] SUPPLEMEN ROHITH MEDEX 2 Aug 10, 2018 [id number] Cresencio GAYTAN PATIENT [place] SUPPLE[place] ROHITH MEDEX 2 Aug 10, 2018 [id number] Cresencio GAYTAN PATIENT [place] MEDICARE SUPPLEMEN ROHITH MEDEX 2 Aug 10, 2018 [id number] Cresencio GAYTAN PATIENT [place] SUPPLEMEN ROHITH MEDEX 2 Aug 10, 2018 [id number] [phone] Cresencio GAYTAN PATIENT [place] PREFERRED PROVIDER ORGANIZAT ION (PPO) [facility] Apr 10, 2009 [id number] [phone] Cresencio GAYTAN PATIENT [employer] POINT OF SERVICE [facility] Aug 10, 2016 [id number] Cresencio GAYTAN PATIENT CIGNA BEHAVIORAL HEALTH MENTAL HEALTH [facility] Aug 10, 2016 [id number] Cresencio GAYTAN PATIENT [employer] PHARMACY PRESCRIPT ION [facility] Aug 10, 2016 [id number] Cresencio GAYTAN PATIENT [employer] ([id number]) PRESCRIPT ION [facility] June 21, 2010 MASA [id number] Cresencio GAYTAN PATIENT MEDICARE (WNR) MEDICARE (M) PART A Aug 10, 2018 PART A [id number] Cresencio GAYTAN PATIENT MEDICARE (WNR) MEDICARE (M) PART B Aug 10, 2018 PART B [id number] [phone] Cresencio GAYTAN PATIENT MEDICARE (WNR) MEDICARE (M) PART A Aug 10, 2018 PART A [id number] Cresencio GAYTAN PATIENT MEDICARE (WNR) MEDICARE (M) PART B Aug 10, 2018 PART B [id number] Cresencio GAYTAN PATIENT Selected Encounter This section includes the information on record at [place] for the Encounter. Date/Time Encounter Type Encounter Description Reason Pro vider Source Feb 19, 2024 08:49 AM Outpatient Encounter DENTAL IHE Encounter Template Text not used by [place] Plan of Treatment: Future Appointments (+ 6 months) and Future Tests (+/- 45 days) The Plan of Treatment section includes future care activities for the patient from all [place] treatmentfacilities. This section includes future appointments and future orders which are active, pending or scheduled. Future Appointments This section includes appointments that were scheduled to occur 6 months from the date of the Encounter, up to a maximum of 20 appointments. The data comes from all [place] treatment facilities. Appointment Date/Time Appointment Type Appointme nt Facility Name Apr 22, 2024 07:30 AM AMBULATORY - MEDICINE [facility] Apr 27, 2024 08:00 AM AMBULATORY - MEDICINE [facility] Social History: Smoking Status (Most current) and Tobacco Use (All prior to encounter date) This section includes the most current, and the historical, smoking and tobacco- related health factors from the [place] facility where the Encounter took place. Current Smoking Status This section includes the most current smoking, or tobacco-related health factor, from the [place] facility where the Encounter took place. Date/Time Current Smoking Status Comment Corrina it Apr 29, 2023 10:00 AM VA-TOBACCO USE WI 30 MIN OF WAKEUP [facility] Tobacco Use History This section includes a history of the smoking, or tobacco-related health factors, that were collected on or before the date of the Encounter. The data comes from the [place] facility where the Encounter took place. 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 [facility] Apr 29, 2023 10:00 AM VA-TOBACCO USE MED NO [facility] Apr 29, 2023 10:00 AM VA-TOBACCO USE WI 30 MIN OF WAKEUP [facility] Apr 29, 2023 10:00 AM VA-TOBACCO USER EVERY DAY [facility] Jul 19, 2021 10:25 AM VA-TOBACCO DOESNT USE WI 30 MIN WAKEUP [facility] Jul 19, 2021 10:25 AM VA-TOBACCO USE 30 YEARS OR MORE [facility] Jul 19, 2021 10:25 AM VA-TOBACCO USE ADVICE [facility] Jul 19, 2021 10:25 AM VA-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 USE 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 NO [facility] Jul 19, 2021 10:25 AM VA-TOBACCO USE MED NO [facility] Jul 19, 2021 10:25 AM VA-TOBACCO USER EVERY DAY [facility] May 09, 2020 08:00 AM VA-TOBACCO FORMER USER [facility] May 09, 2020 08:00 AM VA-TOBACCO QUIT < 1 YEAR [facility] Mar 23, 2019 09:01 AM VA-TOBACCO FORMER USER [facility] Mar 23, 2019 09:01 AM VA-TOBACCO QUIT 5 TO < 15 YRS [facility] Jan 19, 2018 08:24 AM VA-TOBACCO NEVER USED [facility] Jan 17, 2017 08:30 AM QUIT TOBACCO USE > 7 YEARS AGO [facility] Jan 17, 2017 08:30 AM QUIT TOBACCO USE 1-7 YEARS AGO [facility] Apr 19, 2016 01:06 PM QUIT TOBACCO USE 1-7 YEARS AGO [facility] May 05, 2014 08:45 AM QUIT TOBACCO USE 1-7 YEARS AGO [facility] Apr 08, 2013 08:46 AM QUIT TOBACCO USE 1-7 YEARS AGO . [facility] Jan 10, 2012 08:23 AM CURRENT SMOKER [facility] Jan 10, 2012 08:23 AM V1-PT DECLINES REF TO TOBACCO CESS PRGM [facility] Jan 10, 2012 08:23 AM V1-PT DECLINES TOBACCO CESSATION MEDS [facility] Jan 10, 2012 08:23 AM V1-PT THINKING ABOUT QUIT TOBACCO USE [facility] Apr 25, 2011 08:23 AM V1-PT DECLINES REF TO TOBACCO CESS PRGM [facility] Apr 25, 2011 08:23 AM V1-PT DECLINES TOBACCO CESSATION MEDS [facility] Apr 25, 2011 08:23 AM V1-PT THINKING ABOUT QUIT TOBACCO USE [facility] Aug 16, 2010 09:12 AM CURRENT SMOKER 1 pk per wk [facility] Aug 16, 2010 09:12 AM V1-PT DECLINES REF TO TOBACCO CESS PRGM [facility] Aug 16, 2010 09:12 AM V1-PT DECLINES TOBACCO CESSATION MEDS [facility] Aug 16, 2010 09:12 AM V1-PT NOT INTERESTED IN QUIT TOBACCO USE [facility] Dec 28, 2009 08:21 AM V1-PT DECLINES REF TO TOBACCO CESS PRGM [facility] Dec 28, 2009 08:21 AM V1-PT THINKING ABOUT QUIT TOBACCO USE [facility] Mar 20, 2009 10:53 AM V1-PT DECLINES REF TO TOBACCO CESS PRGM [facility] Mar 20, 2009 10:53 AM V1-PT DECLINES TOBACCO CESSATION MEDS [facility] Mar 20, 2009 10:53 AM V1-PT NOT INTERESTED IN QUIT TOBACCO USE [facility] Mar 13, 2009 09:37 AM CURRENT SMOKER just when he is drinking. He can't stand it otherwise. [facility] Advance Directives: All historical and current Section Date Range: From patient's date of to the date document was created. This section includes ALL of a patient's completed or amended [place] Advance and Rescinded Directives. The entries below indicate that a directive exists for the patient, but an actual copy is not included with this document. The data comes from all [place] facilities. Date Advance Directives Provider Source Jun 08, 2014 ADVANCE DIRECTIVE TARYN VILLATORO [facility] Encounter Notes: All associated encounter notes This section contains the clinical notes associated to the Encounter. Date/Time Encounter Note(s) Provider Source Feb 19, 2024 08:49 AM DENTISTRY TELEPHON E ENCOUNTER NOTE: LOCAL TITLE: TELEPHONE NOTE/DENTAL STANDARD TITLE: DENTISTRY TELEPHONE ENCOUNTER NOTE DATE OF NOTE: FEB 19, 2024@08:49 ENTRY DATE: FEB 19, 2024@08:49:43 AUTHOR: SHAVON STRONG EXP COSIGNER: URGENCY: STATUS: COMPLETED Spoke with pt's to confirm pt's dental appointment on 02/20/2024 at 8:30 am /quinton STRONG ADVANCED DIRECTOR TECHNICAL Signed: 02/19/2024 08:50 SHAVON STRONG [facility]
--- OUTSIDE RECORDS SUMMARY | 2024-02-23 07:47 | XMS_ITS | Continuity of Care Document ---
Author Name [facility] Organization [facility] Care Team Providers Care Shipping And Receiving Assistant Name Role Phone [facility] Unavailable Unavailable Problems Combined list of problems from Department of Defense and Veterans Affairs facilities. It does not include entries that were removed or entered in error. Problem Status Onset Date Problem Type Date of Resolution Comments Source History of total hip arthroplasty Active 016 Condition Apr 19, 2016 Entered By: STORM MARTINEZ AM Comment: Left THR, [place] [facility] Abdominal aortic aneurysm 3.0 to 5.5 centimeters in male Active Condition [facility] AF- Atrial Fibrillation (SCT 10858329) Active Condition [facility] Alcohol Dependence Active Condition [facility] Counseling on Substance Use and Abuse (ICD-9-CM V65.42) Active Condition [facility] Exposure to potentially hazardous substance ([facility] [id number]) Active Condition May 20 4 Entered By: [...] * (ICD-9-CM 401.9) Active Condition [facility] Obesity * (ICD-9-CM 278.00) [facility] PTSD [facility] Sleep Apnea (ICD-9-CM 780.57/786.09) [facility] Tinnitus * (ICD-9-CM 388.30) [facility] Urgency of urination (ICD-9-CM 788.63) [facility] [place] [facility] Acute congestive heart failure Inactive Condition 09/06/2013 Sep 06, 2013 Entered By: STORM MARTINEZ AM Comment: one episode with onset of afib, since ablated. [facility] Diagnosis: ICD-10-CM Z77.29 Contact with and exposure to other hazardous substances Active [facility] Diagnosis: ICD-10-CM K03.6 Deposits [accretions] on teeth Active [facility] Diagnosis: ICD-10-CM Z46.0 Encounter for fit/adjst of spectacles and contact lenses Active [facility] Diagnosis: ICD-10-CM L71.8 Other rosacea [facility] Medications Combined list of outpatient medications [...] PRIOR TO DENTAL APPOINTM ENT ORAL 05/25/2023 [id number] SMITH ALVAREZ 2023 20 [facility] APIXABAN 5MG TAB TAKE ONE TABLET BY MOUTH TWICE DAILY ORAL ACTIVE 02/19/2025 [id number] BLAISE MARTINEZ 2024 180 [facility] APIXABAN 5MG TAB TAKE ONE TABLET BY MOUTH TWICE DAILY ORAL DISCONT INUED 11/20/2023 [id number] BLAISE MARTINEZ 2022 180 [facility] CARBOXYMETH YLCELLULOSE NA 0.5% SOLN,OPH INSTILL 1 DROP INTO EACH EYE FOUR TIMES DAILY NEEDED FOR DRY EYE OPHTHA LMIC ACTIVE 04/17/2024 [id number] Cresencio ALAN ICHELE 2023 45 [facility] CARBOXYMETH YLCELLULOSE NA 0.5% SOLN,OPH INSTILL 1 DROP INTO EACH EYE FOUR TIMES DAILY NEEDED FOR DRY EYE OPHTHA LMIC DISCONT INUED 03/27/2023 [id number] Cresencio ALAN ICHELE 2022 30 [facility] DRONEDARONE 400MG TAB TAKE ONE TABLET BY MOUTH TWICE DAILY ORAL ACTIVE 10/30/2024 [id number] BLAISE MARTINEZ 2023 180 [facility] DRONEDARONE 400MG TAB TAKE ONE TABLET BY MOUTH TWICE DAILY ORAL DISCONT INUED 10/21/2023 [id number] RA JAMES HENRIQUEZ 2022 180 [facility] FISH OIL CAP,ORAL TAKE BY MOUTH ORAL ACTIVE BLAISE MARTINEZ 2020 [facility] LISINOPRIL 10MG TAB TAKE ONE TABLET BY MOUTH ONCE DAILY TO CONTROL BLOOD PRESSURE ORAL ACTIVE 10/30/2024 [id number] BLAISE MARTINEZ 2023 90 [facility] LISINOPRIL 10MG TAB TAKE ONE TABLET BY MOUTH ONCE DAILY TO CONTROL BLOOD PRESSURE ORAL DISCONT INUED 10/21/2023 [id number] RA JAMES HENRIQUEZ 2022 90 [facility] MULTIVITAMI NS W/MINERALS TAB TAKE ONE TABLET BY MOUTH EVERY DAY ORAL ACTIVE CANDY GRIGSBY O [address] [facility] OMEPRAZOLE 20MG CAP,EC TAKE ONE CAPSULE BY MOUTH EVERY DAY ORAL ACTIVE 10/30/2024 [id number] RAVENBLAISE GOMEZ 2023 90 [facility] OMEPRAZOLE 20MG CAP,EC TAKE ONE CAPSULE BY MOUTH EVERY DAY ORAL DISCONT INUED 10/21/2023 [id number] 4 RA JAMES HENRIQUEZ 2022 90 [facility] ROSUVASTATI N CA 40MG TAB TAKE ONE-HALF TABLET BY MOUTH ONCE DAILY FOR CHOLESTE ROL ORAL ACTIVE 09/18/2024 [id number] SCARAXEL BLAISE Antoine 2023 45 [facility] ROSUVASTATI N TAB TAKE BY MOUTH ORAL ACTIVE MICHELLEBLAISE Antoine 2020 [facility] VITAMIN D3 (CHOLECALCI FEROL) TAB TAKE BY MOUTH ORAL ACTIVE SCARAXEL BLAISE Antoine 2020 [facility] [place] [facility] Allergies, Adverse Reactions, Alerts Combined list of allergies from Department of Defense and Veterans Affairs facilities. It does not include entries that were removed or entered in error. Substance Category Reaction Severity Reaction type Status Date Reported Comments Source CODEINE Propensity to adverse reactions to drug (finding) active 09/25/2010 [facility] MORPHINE Propensity to adverse reactions to drug (finding) active 09/25/2010 [facility] Immunizations Combined list of available immunizations from the Department of Defense and Veterans Affairs facilities. Immunization Series Date Given Administered By Site Reaction Lot Number CVX Code Drug Cradle Slide Maker Status Comments Source INFLUENZA, UNSPECIFIED FORMULATION 2022 88 complet ed [facility] PNEUMOCOCCAL CONJUGATE PCV20, POLYSACCHARID E [id number] CONJUGATE, ADJUVANT, PF [address] [facility] [place] [facility] INFLUENZA VACCINE, QUADRIVALENT, ADJUVANTED [address] [facility] [place] [facility] TDAP 2020 115 complet ed [facility] HEP B, ADULT 3 2020 43 complet ed [facility] ZOSTER RECOMBINANT 2 2020 187 complet ed [facility] COVID-19 (MODERNA), MRNA, LNP-S, PF, 100 MCG/0.5 ML DOSE 2 2020 207 complet ed MOD; [id number]; 1 [facility] COVID-19 (MODERNA), MRNA, LNP-S, PF, 100 MCG/0.5 ML DOSE 1 2020 207 complet ed MOD; [id number]; 1 [facility] [...] Apr 16, 2023 11:34 AM Reporting Lab: [facility] [address] [address] Performing Lab: [facility]ITALN [facility] [address] [facility] LIPID PANEL FASTING CHOLESTEROL [MASS/VOLUM E] IN SERUM OR PLASMA 138 mg/dL 04/24 Specimen Type: SERUM No comment entered. Ordering Provider: Bo MARTINEZ Report Released Date/Time: Apr 16, 2023 11:34 AM Reporting Lab: [facility] [address] [address] Performing Lab: [facility]ITALTRN [facility]USE[facility] [address] [address] [facility] LIPID PANEL FASTING TRIGLYCERID E [MASS/VOLUM E] IN SERUM OR PLASMA 83 mg/dL 0 - 150 04/24 Specimen Type: SERUM No comment entered. Ordering Provider: Bo MARTINEZ Report Released Date/Time: Apr 16, 2023 11:34 AM Reporting Lab: [facility]PITALN [facility]ENTERUSETS [facility] [address] [address] Performing Lab: [facility]OS[facility]ITALN [facility]ENTERUSE[address] [address] [facility] LIPID PANEL FASTING CHOLESTEROL IN LDL [MASS/VOLUM E] IN SERUM OR PLASMA BY CALCULATION 68 mg/dL 0 - 129 04/24 Specimen Type: SERUM No comment entered. Ordering Provider: Bo MARTINEZ Report Released Date/Time: Apr 16, 2023 11:34 AM Reporting Lab: [facility] [place] [facility] [address] [address] Performing Lab: [facility] [place] [facility] [address] [address] [facility] LIPID PANEL FASTING CHOLESTEROL .TOTAL/CHOL ESTEROL IN HDL [MASS RATIO] IN SERUM OR PLASMA 2.6 04/24 Specimen Type: SERUM No comment entered. Ordering Provider: Bo MARTINEZ Report Released Date/Time: Apr 16, 2023 11:34 AM Reporting Lab: [facility] [place] [facility] [address] [address] Performing Lab: [facility] [place] [facility] [address] [address] [facility] LIPID PANEL FASTING CHOLESTEROL IN HDL [MASS/VOLUM E] IN SERUM OR PLASMA 53 mg/dL 40 - 60 04/24 Specimen Type: SERUM No comment entered. Ordering Provider: Bo MARTINEZ Report Released Date/Time: Apr 16, 2023 11:34 AM Reporting Lab: [facility] [place] [facility] [address] [address] Performing Lab: [facility] [place] [facility] [address] [address] [facility] BASIC METABOLIC PANEL (fasting) UREA NITROGEN [MASS/VOLUM E] IN SERUM OR PLASMA 16 mg/dL 7 - 25 04/24 Specimen Type: SERUM No comment entered. Ordering Provider: Bo MARTINEZ Report Released Date/Time: Apr 16, 2023 11:34 AM Reporting Lab: [facility] [place] [facility] [address] [address] Performing Lab: [facility] [place] [facility] [address] [address] [facility] BASIC METABOLIC PANEL (fasting) GLUCOSE [MASS/VOLUM E] IN SERUM OR PLASMA 99 mg/dL 65 - 100 04/24 Specimen Type: SERUM No comment entered. Ordering Provider: Bo MARTINEZ Report Released Date/Time: Apr 16, 2023 11:34 AM Reporting Lab: [facility] [place] [facility] [address] [address] Performing Lab: [facility] [place] [facility] [address] [address] [facility] BASIC METABOLIC PANEL (fasting) SODIUM [MOLES/VOLU ME] IN SERUM OR PLASMA 140 mmol/L 135 - 145 04/24 Specimen Type: SERUM No comment entered. Ordering Provider: Bo MARTINEZ Report Released Date/Time: Apr 16, 2023 11:34 AM Reporting Lab: [facility] [place] [facility] [address] [address] Performing Lab: [facility] [place] [facility] [address] [address] [facility] BASIC METABOLIC PANEL (fasting) POTASSIUM [MOLES/VOLU ME] IN SERUM OR PLASMA 4.5 mmol/L 3.5 - 5.0 04/24 Specimen Type: SERUM No comment entered. Ordering Provider: Bo MARTINEZ Report Released Date/Time: Apr 16, 2023 11:34 AM Reporting Lab: [facility] [place] [facility] [address] [address] Performing Lab: [facility] [place] [facility] [address] [address] [facility] BASIC METABOLIC PANEL (fasting) CHLORIDE [MOLES/VOLU ME] IN SERUM OR PLASMA 103 mmol/L 100 - 110 04/24 Specimen Type: SERUM No comment entered. Ordering Provider: Bo MARTINEZ Report Released Date/Time: Apr 16, 2023 11:34 AM Reporting Lab: [facility] [place] [facility] [address] [address] Performing Lab: [facility] [place] [facility] [address] [address] [facility] BASIC METABOLIC PANEL (fasting) CARBON DIOXIDE, TOTAL [MOLES/VOLU ME] IN SERUM OR PLASMA 27 meq/L 20 - 30 04/24 Specimen Type: SERUM No comment entered. Ordering Provider: Bo MARTINEZ Report Released Date/Time: Apr 16, 2023 11:34 AM Reporting Lab: [facility] [place] [facility] [address] [address] Performing Lab: [facility] [address] [address] [facility] BASIC METABOLIC PANEL (fasting) CREATININE [MASS/VOLUM E] IN SERUM OR PLASMA 0.80 mg/dL 0.50 - 1.40 04/24 Specimen Type: SERUM No comment entered. Ordering Provider: Bo MARTINEZ Report Released Date/Time: Apr 16, 2023 11:34 AM Reporting Lab: [facility]ENTER[facility] [address] Performing Lab: [facility] CENTERUSETS [address] [address] [facility]ENTERUSE [facility] BASIC METABOLIC PANEL (fasting) GLOMERULAR FILTRATION RATE/1.73 SQ M.PREDICTED [VOLUME RATE/AREA] IN SERUM, PLASMA OR BLOOD BY CREATININE- BASED FORMULA (CKD-EPI 2020) >90mL/ min 60 04/24 Specimen Type: SERUM No comment entered. Ordering Provider: Bo MARTINEZ Report Released Date/Time: Apr 16, 2023 11:34 AM Reporting Lab: [facility] [place] [facility] [address] [address] Performing Lab: [facility] [place] [address] [address] [facility] LIVER FUNCTION PROTEIN [MASS/VOLUM E] IN SERUM OR PLASMA 7.3 g/dL 6.0 - 8.3 04/24 Specimen Type: SERUM No comment entered. Ordering Provider: Bo MARTINEZ Report Released Date/Time: Apr 16, 2023 11:34 AM Reporting Lab: [facility] [place] [facility] [address] [address] Performing Lab: [facility] [place] [facility] [address] [address] [facility] [place] LIVER FUNCTION ALBUMIN [MASS/VOLUM E] IN SERUM OR PLASMA 4.1 g/dL 3.5 - 5.0 04/24 Specimen Type: SERUM No comment entered. Ordering Provider: Bo MARTINEZ Report Released Date/Time: Apr 16, 2023 11:34 AM Reporting Lab: [facility] [place] [facility] [address] [address] Performing Lab: [facility] [place] [facility] [address] [address] [facility] LIVER FUNCTION ALKALINE PHOSPHATASE [ENZYMATIC ACTIVITY/VO LUME] IN SERUM OR PLASMA 75 U/L 40 - 150 04/24 Specimen Type: SERUM No comment entered. Ordering Provider: Bo MARTINEZ Report Released Date/Time: Apr 16, 2023 11:34 AM Reporting Lab: [facility] [place] [facility] [address] [address] Performing Lab: [facility] [place] [facility] [address] [address] [facility] [place] LIVER FUNCTION ASPARTATE AMINOTRANSF ERASE [ENZYMATIC ACTIVITY/VO LUME] IN SERUM OR PLASMA 21 U/L 5 - 34 04/24 Specimen Type: SERUM No comment entered. Ordering Provider: Bo MARTINEZ Report Released Date/Time: Apr 16, 2023 11:34 AM Reporting Lab: [facility] [place] [facility] [address] [address] Performing Lab: [facility] [place] [facility] [address] [address] [facility] [place] LIVER FUNCTION ALANINE AMINOTRANSF ERASE [ENZYMATIC ACTIVITY/VO LUME] IN SERUM OR PLASMA 25 U/L 04/24 Specimen Type: SERUM No comment entered. Ordering Provider: Bo MARTINEZ Report Released Date/Time: Apr 16, 2023 11:34 AM Reporting Lab: [facility] [address] [address] Performing Lab: [facility] [place] [facility] [address] [address] [facility] [place] LIVER FUNCTION BILIRUBIN.T OTAL [MASS/VOLUM E] IN SERUM OR PLASMA 0.3 mg/dL 0.2 - 1.2 04/24 Specimen Type: SERUM No comment entered. Ordering Provider: Bo MARTINEZ Report Released Date/Time: Apr 16, 2023 11:34 AM Reporting Lab: [facility] [place] [facility] [address] [address] Performing Lab: [facility] [place] [address] [address] [facility] [place] CBC AND DIFF (AUTO) LEUKOCYTES [#/VOLUME] IN BLOOD BY AUTOMATED COUNT 6.22 10*3/u L 4.50 - 11.00 04/24 Specimen Type: BLOOD No comment entered. Ordering Provider: Bo MARTINEZ Report Released Date/Time: Apr 16, 2023 11:34 AM Reporting Lab: [facility] [place] [facility] [address] [address] Performing Lab: [facility] [place] [address] [address] [facility] [place] CBC AND DIFF (AUTO) ERYTHROCYTE S [#/VOLUME] IN BLOOD BY AUTOMATED COUNT 4.24 10*6/u L 4.23 - 5.66 04/24 Specimen Type: BLOOD No comment entered. Ordering Provider: Bo MARTINEZ Report Released Date/Time: Apr 16, 2023 11:34 AM Reporting Lab: [facility] [place] [address] [address] Performing Lab: [facility] [place] [address] [address] [facility] [place] CBC AND DIFF (AUTO) HEMOGLOBIN [MASS/VOLUM E] IN BLOOD 13.2 g/dL 12.8 - 17 04/24 Specimen Type: BLOOD No comment entered. Ordering Provider: Bo MARTINEZ Report Released Date/Time: Apr 16, 2023 11:34 AM Reporting Lab: [facility] [place] [facility] [address] [address] Performing Lab: [facility] [place] [facility] [address] [address] [facility] CBC AND DIFF (AUTO) HEMATOCRIT [VOLUME FRACTION] OF BLOOD BY AUTOMATED COUNT 38.6 39.2 - 50.4 04/24 L Specimen Type: BLOOD No comment entered. Ordering Provider: Bo MARTINEZ Report Released Date/Time: Apr 16, 2023 11:34 AM Reporting Lab: [facility] [place] [facility] [address] [facility] [address] Performing Lab: [facility] [place] [facility] [address] [address] [facility] [place] [facility] CBC AND DIFF (AUTO) MCV [ENTITIC VOLUME] BY AUTOMATED COUNT 91.0 fL 82 - 99 04/24 Specimen Type: BLOOD No comment entered. Ordering Provider: Bo MARTINEZ Report Released Date/Time: Apr 16, 2023 11:34 AM Reporting Lab: [facility] [place] [facility] [address] [facility] [address] Performing Lab: [facility] [place] [facility] [address] [address] [facility] CBC AND DIFF (AUTO) MCHC [MASS/VOLUM E] BY AUTOMATED COUNT 34.2 g/dL 30.8 - 35.1 04/24 Specimen Type: BLOOD No comment entered. Ordering Provider: Bo MARTINEZ Report Released Date/Time: Apr 16, 2023 11:34 AM Reporting Lab: [facility] [place] [facility] [address] [address] Performing Lab: [facility] [place] [facility] [address] [address] [facility] CBC AND DIFF (AUTO) PLATELETS [#/VOLUME] IN BLOOD BY AUTOMATED COUNT 228 10*3/u L 140 - 360 04/24 Specimen Type: BLOOD No comment entered. Ordering Provider: Bo MARTINEZ Report Released Date/Time: Apr 16, 2023 11:34 AM Reporting Lab: [facility] [place] [facility] [address] [address] Performing Lab: [facility] [place] [facility] [address] [address] [facility] CBC AND DIFF (AUTO) ERYTHROCYTE DISTRIBUTIO N WIDTH [RATIO] BY AUTOMATED COUNT 13.2 12.0 - 16.0 04/24 Specimen Type: BLOOD No comment entered. Ordering Provider: Bo MARTINEZ Report Released Date/Time: Apr 16, 2023 11:34 AM Reporting Lab: [facility] [place] [facility] [address] [address] Performing Lab: [facility] [place] [facility] [address] [address] [facility] [place] CBC AND DIFF (AUTO) MONOCYTES [#/VOLUME] IN BLOOD BY AUTOMATED COUNT 0.62 10*3/u L 0.30 - 1.10 04/24 Specimen Type: BLOOD No comment entered. Ordering Provider: Bo MARTINEZ Report Released Date/Time: Apr 16, 2023 11:34 AM Reporting Lab: [facility] [place] [facility] [address] [facility] [address] Performing Lab: [facility] [place] [facility] [address] [address] [facility] CBC AND DIFF (AUTO) MCH [ENTITIC MASS] BY AUTOMATED COUNT 31.1 pg 26.2 - 32.6 04/24 Specimen Type: BLOOD No comment entered. Ordering Provider: Bo MARTINEZ Report Released Date/Time: Apr 16, 2023 11:34 AM Reporting Lab: [facility] [address] [facility] [address] Performing Lab: [facility] [address] [address] [facility] CBC AND DIFF (AUTO) NEUTROPHILS /100 LEUKOCYTES IN BLOOD BY AUTOMATED COUNT 61.4 43.7 - 75.8 04/24 Specimen Type: BLOOD No comment entered. Ordering Provider: Bo MARTINEZ Report Released Date/Time: Apr 16, 2023 11:34 AM Reporting Lab: [facility] [place] [address] [facility] [facility] [address] Performing Lab: [facility] [place] [address] [address] [facility] CBC AND DIFF (AUTO) LYMPHOCYTES /100 LEUKOCYTES IN BLOOD BY AUTOMATED COUNT 24.1 14.0 - 42.3 04/24 Specimen Type: BLOOD No comment entered. Ordering Provider: Bo MARTINEZ Report Released Date/Time: Apr 16, 2023 11:34 AM Reporting Lab: [facility] [address] [facility] [address] Performing Lab[facility] [facility] [address] [facility] [address] [facility] CBC AND DIFF (AUTO) MONOCYTES/1 00 LEUKOCYTES IN BLOOD BY AUTOMATED COUNT 10.0 5.1 - 13.7 04/24 Specimen Type: BLOOD No comment entered. Ordering Provider: Bo MARTINEZ Report Released Date/Time: Apr 16, 2023 11:34 AM Reporting Lab: [facility] [address] [facility] [address] Performing Lab: [facility] [address] [facility] [address] [facility] CBC AND DIFF (AUTO) EOSINOPHILS /100 LEUKOCYTES IN BLOOD BY AUTOMATED COUNT 3.5 0.4 - 6.8 04/24 Specimen Type: BLOOD No comment entered. Ordering Provider: Bo MARTINEZ Report Released Date/Time: Apr 16, 2023 11:34 AM Reporting Lab: [facility] [address] [facility] [address] Performing Lab: [facility] [address] [address] [facility] CBC AND DIFF (AUTO) BASOPHILS/1 00 LEUKOCYTES IN BLOOD BY AUTOMATED COUNT 0.8 0.1 - 2.0 04/24 Specimen Type: BLOOD No comment entered. Ordering Provider: Bo MARTINEZ Report Released Date/Time: Apr 16, 2023 11:34 AM Reporting Lab: [facility] [address] [address] Performing Lab: [facility] [place] [address] [address] [facility] CBC AND DIFF (AUTO) NEUTROPHILS [#/VOLUME] IN BLOOD BY AUTOMATED COUNT 3.82 10*3/u L 2.20 - 7.60 04/24 Specimen Type: BLOOD No comment entered. Ordering Provider: Bo MARTINEZ Report Released Date/Time: Apr 16, 2023 11:34 AM Reporting Lab: [facility] [address] [address] Performing Lab: [facility] [place] [address] [address] [facility] CBC AND DIFF (AUTO) LYMPHOCYTES [#/VOLUME] IN BLOOD BY AUTOMATED COUNT 1.50 10*3/u L 1.00 - 3.20 04/24 Specimen Type: BLOOD No comment entered. Ordering Provider: Bo MARTINEZ Report Released Date/Time: Apr 16, 2023 11:34 AM Reporting Lab: [facility] [address] [address] Performing Lab: [facility] [place] [address] [facility] [address] [facility] CBC AND DIFF (AUTO) EOSINOPHILS [#/VOLUME] IN BLOOD BY AUTOMATED COUNT 0.22 10*3/u L 0.03 - 0.44 04/24 Specimen Type: BLOOD No comment entered. Ordering Provider: Bo MARTINEZ Report Released Date/Time: Apr 16, 2023 11:34 AM Reporting Lab: [facility] [place] [facility] [address] [facility] [address] Performing Lab: [facility] [place] [facility] [address] [facility] [address] [facility] [place] [facility] CBC AND DIFF (AUTO) BASOPHILS [#/VOLUME] IN BLOOD BY AUTOMATED COUNT 0.05 10*3/u L 0.01 - 0.13 04/24 Specimen Type: BLOOD No comment entered. Ordering Provider: Bo MARTINEZ Report Released Date/Time: Apr 16, 2023 11:34 AM Reporting Lab: [facility] [place] [facility] [address] [address] Performing Lab: [facility] [place] [facility] [address] [facility] [facility] [address] [facility] [place] [facility] CBC AND DIFF (AUTO) IMMATURE GRANULOCYTE S/100 LEUKOCYTES IN BLOOD BY AUTOMATED COUNT 0.2 0.0 - 0.7 04/24 Specimen Type: BLOOD No comment entered. Ordering Provider: Bo MARTINEZ Report Released Date/Time: Apr 16, 2023 11:34 AM Reporting Lab: [facility] [place] [facility] [address] [address] Performing Lab: [facility] [place] [facility] [address] [address] [facility] [place] [facility] CBC AND DIFF (AUTO) IMMATURE GRANULOCYTE S [#/VOLUME] IN BLOOD 0.01 10*3/u L 0.00 - 0.06 04/24 Specimen Type: BLOOD No comment entered. Ordering Provider: Bo MARTINEZ Report Released Date/Time: Apr 16, 2023 11:34 AM Reporting Lab: [facility] [address] [address] Performing Lab: [facility] [address] [address] [facility] VITAMIN D 25-OH (Therapy monitor) 25-HYDROXYV [...] additional information , please refer to [email or web address] ation.[employer] .com/faq/FA Q199 (This link is being provided for information al/ educational purposes only.) This test was developed and its analytical performance characteris tics have been determined by [employer] [place] It has not been cleared or approved by the U.S. Food and Drug Administrat ion. This assay has been validated pursuant to the CLIA regulations and is used for clinical purposes. This test was developed and its analytical performance characteris tics have been determined by [employer] It has not been cleared or approved by the U.S. Food and Drug Administrat ion. This assay has been validated pursuant to the CLIA regulations and is used for clinical purposes. Test Performed by [employer], [employer] [facility], [address] [place] [address] Hayes Granado M.D., Ph.D., Director of Laboratorie s , CLIA [id number] TEST PERFORMED AT: , Ordering Provider: Bo MARTINEZ Report Released Date/Time: Aug 30, 2021 11:50 AM Reporting Lab: [facility] [address] [address] Performing Lab: [facility] [address] [address] [facility] VITAMIN D 25-OH (Therapy monitor) 25-HYDROXYV [...] additional information , please refer to http://educ ation.[employer] .com/faq/FA Q199 (This link is being provided for information al/ educational purposes only.) This test was developed and its analytical performance characteris tics have been determined by [employer] [place] It has not been cleared or approved by the U.S. Food and Drug Administrat ion. This assay has been validated pursuant to the CLIA regulations and is used for clinical purposes. This test was developed and its analytical performance characteris tics have been determined by [employer] [place] It has not been cleared or approved by the U.S. Food and Drug Administrat ion. This assay has been validated pursuant to the CLIA regulations and is used for clinical purposes. Test Performed by [employer], [employer] [facility], [address] [place] [address] Hayes Granado M.D., Ph.D., Director of Laboratorie s , CLIA [id number] TEST PERFORMED AT: , Ordering Provider: Bo MARTINEZ Report Released Date/Time: Aug 30, 2021 11:50 AM Reporting Lab: [facility] [address] [address] Performing Lab: [facility] [address] [address] [facility] VITAMIN D 25-OH (Therapy monitor) CALCIFEROL [...] additional information , please refer to [email or web address] ation.[employer] .Tiggly/faq/FA Q199 (This link is being provided for information al/ educational purposes only.) This test was developed and its analytical performance characteris tics have been determined by [employer] [place] It has not been cleared or approved by the U.S. Food and Drug Administrat ion. This assay has been validated pursuant to the CLIA regulations and is used for clinical purposes. This test was developed and its analytical performance characteris tics have been determined by [employer] [place]. It has not been cleared or approved by the U.S. Food and Drug Administrat ion. This assay has been validated pursuant to the CLIA regulations and is used for clinical purposes. Test Performed by [employer], [employer] [facility], [address] [place] [address] Hayes Granado M.D., Ph.D., Director of Laboratorie s , CLIA [id number] TEST PERFORMED AT: , Ordering Provider: Bo MARTINEZ Report Released Date/Time: Aug 30, 2021 11:50 AM Reporting Lab: [address] [address] Performing Lab: [facility] [id number] [place] [address] LIPID PANEL FASTING CHOLESTEROL [MASS/VOLUM E] IN SERUM OR PLASMA 127 mg/dL 08/12 Specimen Type: SERUM No comment entered. Ordering Provider: Bo MARTINEZ Report Released Date/Time: Aug 30, 2021 11:50 AM Reporting Lab: [address] [address] Performing Lab: [address] [address] [facility] LIPID PANEL FASTING TRIGLYCERID E [MASS/VOLUM E] IN SERUM OR PLASMA 83 mg/dL 0 - 150 08/12 Specimen Type: SERUM No comment entered. Ordering Provider: Bo MARTINEZ Report Released Date/Time: Aug 30, 2021 11:50 AM Reporting Lab: [facility] [place] [facility] [address] [facility] [address] Performing Lab: [facility] [place] [facility] [address] [address] [facility] LIPID PANEL FASTING CHOLESTEROL IN LDL [MASS/VOLUM E] IN SERUM OR PLASMA BY CALCULATION 58 mg/dL 0 - 129 08/12 Specimen Type: SERUM No comment entered. Ordering Provider: Bo MARTINZE Report Released Date/Time: Aug 30, 2021 11:50 AM Reporting Lab: [facility] [place] [facility] [address] [facility] [address] Performing Lab: [facility] [place] [address] [address] [facility] LIPID PANEL FASTING CHOLESTEROL .TOTAL/CHOL ESTEROL IN HDL [MASS RATIO] IN SERUM OR PLASMA 2.4 08/12 Specimen Type: SERUM No comment entered. Ordering Provider: Bo MARTINEZ Report Released Date/Time: Aug 30, 2021 11:50 AM Reporting Lab: [facility] [place] [facility] [address] [facility] [address] Performing Lab: [facility] [place] [address] [address] [facility] [facility] LIPID PANEL FASTING CHOLESTEROL IN HDL [MASS/VOLUM E] IN SERUM OR PLASMA 52 mg/dL 40 - 60 08/12 Specimen Type: SERUM No comment entered. Ordering Provider: Bo MARTINEZ Report Released Date/Time: Aug 30, 2021 11:50 AM Reporting Lab: [facility] [place] [facility] [address] [facility] [address] Performing Lab: [facility] [place] [facility] [address] [facility] [address] [facility] [place] LIVER FUNCTION PROTEIN [MASS/VOLUM E] IN SERUM OR PLASMA 7.3 g/dL 6.0 - 8.3 08/12 Specimen Type: SERUM No comment entered. Ordering Provider: Bo MARTINEZ Report Released Date/Time: Aug 30, 2021 11:50 AM Reporting Lab: [facility] [place] [facility] [address] [facility] [facility] [address] Performing Lab: [facility] [place] [facility] [address] [facility] [facility] [address] [facility] [facility] LIVER FUNCTION ALBUMIN [MASS/VOLUM E] IN SERUM OR PLASMA 4.3 g/dL 3.5 - 5.0 08/12 Specimen Type: SERUM No comment entered. Ordering Provider: Bo MARTINEZ Report Released Date/Time: Aug 30, 2021 11:50 AM Reporting Lab: [facility] [place] [facility] [address] [facility] [address] Performing Lab: [facility] [place] [facility] [address] [facility] [address] [place] [facility] [place] [facility] LIVER FUNCTION ALKALINE PHOSPHATASE [ENZYMATIC ACTIVITY/VO LUME] IN SERUM OR PLASMA 82 U/L 40 - 150 08/12 Specimen Type: SERUM No comment entered. Ordering Provider: Bo MARTINEZ Report Released Date/Time: Aug 30, 2021 11:50 AM Reporting Lab: [facility] [place] [facility] [address] [facility] [facility] [address] Performing Lab: [facility] [place] [facility] [address] [facility] [facility] [address] [facility] LIVER FUNCTION ASPARTATE AMINOTRANSF ERASE [ENZYMATIC ACTIVITY/VO LUME] IN SERUM OR PLASMA 21 U/L 5 - 34 08/12 Specimen Type: SERUM No comment entered. Ordering Provider: Bo MARTINEZ Report Released Date/Time: Aug 30, 2021 11:50 AM Reporting Lab: [facility] [place] [facility] [address] [facility] [facility] [address] Performing Lab: [facility] [place] [facility] [address] [facility] [facility] [address] [facility] [place] [facility] LIVER FUNCTION ALANINE AMINOTRANSF ERASE [ENZYMATIC ACTIVITY/VO LUME] IN SERUM OR PLASMA 18 U/L 08/12 Specimen Type: SERUM No comment entered. Ordering Provider: Bo MARTINEZ Report Released Date/Time: Aug 30, 2021 11:50 AM Reporting Lab: [facility] [place] [facility] [address] [facility] [facility] [address] Performing Lab: [facility] [place] [facility] [address] [facility] [facility] [address] [facility] [place] [facility] LIVER FUNCTION BILIRUBIN.T OTAL [MASS/VOLUM E] IN SERUM OR PLASMA 0.4 mg/dL 0.2 - 1.2 08/12 Specimen Type: SERUM No comment entered. Ordering Provider: Bo MARTINEZ Report Released Date/Time: Aug 30, 2021 11:50 AM Reporting Lab: [facility] [place] [facility] [address] [facility] [facility] [address] Performing Lab: [facility] [place] [facility] [address] [facility] [facility] [address] [facility] [place] VITAMIN B12 COBALAMIN (VITAMIN B12) [MASS/VOLUM E] IN SERUM OR PLASMA 454 pg/mL 200 - 900 08/12 Specimen Type: SERUM No comment entered. Ordering Provider: Bo MARTINEZ Report Released Date/Time: Aug 30, 2021 11:50 AM Reporting Lab: [facility] [place] [facility] [address] [facility] [facility] [address] Performing Lab: [facility] [place] [facility] [address] [facility] [facility] [address] [facility] [place] [facility] BASIC METABOLIC PANEL (fasting) UREA NITROGEN [MASS/VOLUM E] IN SERUM OR PLASMA 20 mg/dL 7 - 25 08/12 Specimen Type: SERUM No comment entered. Ordering Provider: Bo MARTINEZ Report Released Date/Time: Aug 30, 2021 11:50 AM Reporting Lab: [facility] [address] [facility] [facility] [address] Performing Lab: [facility] [address] [facility] BASIC METABOLIC PANEL (fasting) GLUCOSE [MASS/VOLUM E] IN SERUM OR PLASMA 101 mg/dL 65 - 100 08/12 H Specimen Type: SERUM No comment entered. Ordering Provider: Bo MARTINEZ Report Released Date/Time: Aug 30, 2021 11:50 AM Reporting Lab: [facility] [address] Performing Lab: [facility] [address] [facility] BASIC METABOLIC PANEL (fasting) SODIUM [MOLES/VOLU ME] IN SERUM OR PLASMA 136 mmol/L 135 - 145 08/12 Specimen Type: SERUM No comment entered. Ordering Provider: Bo MARTINEZ Report Released Date/Time: Aug 30, 2021 11:50 AM Reporting Lab: [facility] [address] Performing Lab: [facility] [address] [address] [facility] BASIC METABOLIC PANEL (fasting) POTASSIUM [MOLES/VOLU ME] IN SERUM OR PLASMA 4.4 mmol/L 3.5 - 5.0 08/12 Specimen Type: SERUM No comment entered. Ordering Provider: Bo MARTINEZ Report Released Date/Time: Aug 30, 2021 11:50 AM Reporting Lab: [facility] [address] Performing Lab: [facility]ENTER[facility] [place] [address] [facility] BASIC METABOLIC PANEL (fasting) CHLORIDE [MOLES/VOLU ME] IN SERUM OR PLASMA 102 mmol/L 100 - 110 08/12 Specimen Type: SERUM No comment entered. Ordering Provider: Bo MARTINEZ Report Released Date/Time: Aug 30, 2021 11:50 AM Reporting Lab: [facility] [address] [facility] [facility] [address] Performing Lab: [facility] [address] [facility] [address] [facility] SYSTEMRGRE[facility]ITALN [facility] BASIC METABOLIC PANEL (fasting) CARBON DIOXIDE, TOTAL [MOLES/VOLU ME] IN SERUM OR PLASMA 24 meq/L 20 - 30 08/12 Specimen Type: SERUM No comment entered. Ordering Provider: Bo MARTINEZ Report Released Date/Time: Aug 30, 2021 11:50 AM Reporting Lab: [facility] [address] [facility] [facility] [address] Performing Lab: [facility] [address] [facility]RGRE[facility]CH[facility]AT[facility] H[facility]ITALN [facility] BASIC METABOLIC PANEL (fasting) CREATININE [MASS/VOLUM E] IN SERUM OR PLASMA 0.80 mg/dL 0.50 - 1.40 08/12 Specimen Type: SERUM No comment entered. Ordering Provider: Bo MARTINEZ Report Released Date/Time: Aug 30, 2021 11:50 AM Reporting Lab: [facility] [address] [facility] [address] Performing Lab: [facility]ENTER[facility] [address] [facility] SYSTEMRGRE[facility]OS[facility]ITALN [facility]USE [facility] BASIC METABOLIC PANEL (fasting) GLOMERULAR FILTRATION RATE/1.73 SQ M.PREDICTED [VOLUME RATE/AREA] IN SERUM, PLASMA OR BLOOD BY CREATININE- BASED FORMULA (CKD-EPI) >90mL/ min 08/12 Specimen Type: SERUM No comment entered. Ordering Provider: Bo MARTINEZ Report Released Date/Time: Aug 30, 2021 11:50 AM Reporting Lab: [facility] [place] [facility] [address] [facility] [facility] [facility] [address] Performing Lab: [facility] [place] [facility] [address] [facility] [facility] [address] [facility] Vital [...] [facility] Out[facility] En[facility] [id number] 08/27 [facility] En[facility] [id number] 08/21 /2023 [facility] En[facility] [id number] 10/01 [facility] [place] En[facility] [id number] 10/17 [facility] [place] En[facility] [id number] 11/28 [facility] En[facility] [id number] 12/30 [facility] En[facility] [id number] 01/28 [facility] [place] En[facility] [id number] 03/14 [facility] [place] En[facility] [id number] 03/26 [facility] [place] En[facility] [id number] 04/03 [facility] COMPRE OPH EXAM EST PT 1/> [id number] Diagnos is: ICD-10- CM L71.8 Other rosacea
WAQAS,MI OSVALDO 04/16 [facility] FIT SPECTACLES MONOFOCAL [id number] Diagnos is: ICD-10- CM Z46.0 Encount er for fit/adj st of spectac les and contact lenses< br/> ELISA ALAN 04/17 [facility] [place] CLEAN/INSP ECT MAX COMP DENT [id number] Diagnos is: ICD-10- CM K03.6 Deposit s [accret ions] on teeth<b r/> Stephanie YI 04/24 [facility] [place] OFFICE O/P EST MOD 30 MIN [id number] Diagnos is: ICD-10- CM Z77.29 Contact with and exposur e to other hazardo us substan efren<br/ > BLAISE MARTINEZ 04/28 [facility] [place] [facility] [place] Outpatient Encounter [id number] 10/26 [facility] [place] [facility] [place] Outpatient Encounter [id number] 02/17 [facility] [place] [facility] [place] [facility] Outpatient Encounter [id number] 02/18 [facility] [place] [facility] Social History Combined list of available smoking, tobacco, and other social history from Department of Defense and Veterans Affairs facilities. Social History Type Response Date Comment Source Tobacco smoking status KSIS VA-TOBACCO USER EVERY DAY 04/29/2023 [facility] History of tobacco use VA-TOBACCO USE WI 30 MIN OF WAKEUP 04/29/2023 [facility] History of tobacco use VA-TOBACCO USER EVERY DAY 07/19/2021 [facility] History of tobacco use VA-TOBACCO QUIT < 1 YEAR 05/09/2020 [facility] History of tobacco use VA-TOBACCO QUIT 5 TO < 15 YRS 03/23/2019 [facility] History of tobacco use CT-TOBACCO NEVER USED 01/19/2018 [facility] History of tobacco use QUIT TOBACCO USE 1-7 YEARS AGO 01/17/2017 [facility] History of tobacco use QUIT TOBACCO USE 1-7 YEARS AGO 04/19/2016 [facility] History of tobacco use QUIT TOBACCO USE 1-7 YEARS AGO 05/05/2014 [facility] History of tobacco use QUIT TOBACCO USE 1-7 YEARS AGO 04/08/2013 . [facility] History of tobacco use CURRENT SMOKER 01/10/2012 [...] Care List of future care activities from [facility] facilities. Additional future care activities may be listed in the Assessment and Plan section. Date/Time Care Activity Care Activity Detail Facili ty 04/22/2024 AMBULATORY - MEDICINE AMBULATORY - MEDICI NE [facility] 04/27/2024 AMBULATORY - MEDICINE AMBULATORY - MEDICI NE [facility] Advance Directives List of completed, amended, or rescinded Advance Directives on record at [facility] facilities. An actual copy of the Directive is not included. Date Advance Directive Provider Source 06/08/2014 ADVANCE DIRECTIVE TARYN VILLATORO [facility]
--- OUTSIDE RECORDS SUMMARY | 2024-02-23 07:47 | XMS_ITS | Encounter Summary ---
Author Name [facility] [place] [facility] [place] [facility] [place] Address [address] [place] [id number] Care Team Providers Care Bridge Operator Name Role Phone DAO CASTRO Primary Care [...] SUPPLEMEN ROHITH MEDEX 2 Aug 10, 2018 [id number] [phone] Cresencio GAYTAN PATIENT [place] SUPPLEMEN ROHITH MEDEX 2 Aug 10, 2018 [id number] Cresencio GAYTAN [place] SUPPLEMEN ROHITH MEDEX 2 Aug 10, 2018 [id number] Cresencio GAYTAN PATIENT [place] SUPPLEMEN ROHITH MEDEX 2 Aug 10, 2018 [id number] [phone] Cresencio GAYTAN PATIENT [place] PREFERRED PROVIDER ORGANIZAT ION (PPO) [facility] Apr 10, 2009 [id number] [phone] Cresencio GAYTAN PATIENT CIGNA POINT OF SERVICE [facility] Aug 10, 2016 [id number] Cresencio GAYTAN PATIENT CIGNA BEHAVIORAL HEALTH MENTAL HEALTH [facility] Aug 10, 2016 [id number] Cresencio GAYTAN PATIENT CIGNA PHARMACY PRESCRIPT ION [facility] Aug 10, 2016 [id number] [phone] Cresencio GAYTAN PATIENT [employer] ([id number]) PRESCRIPT ION BCBSM A June 21, 2010 MASA [id number] Cresencio GAYTAN PATIENT MEDICARE (WNR) MEDICARE (M) PART A Aug 10, 2018 PART A [id number] [phone] Cresencio GAYTAN PATIENT MEDICARE (WNR) MEDICARE (M) PART B Aug 10, 2018 PART B [id number] [phone] Cresencio GAYTAN PATIENT MEDICARE (WNR) MEDICARE (M) PART A Aug 10, 2018 PART A [id number] [phone] Cresencio GAYTAN PATIENT MEDICARE (WNR) MEDICARE (M) PART B Aug 10, 2018 PART B [id number] [phone] Cresencio GAYTAN PATIENT Selected Encounter This section includes the information on record at [place] for the Encounter. Date/Time Encounter Type Encounter Description Reason Pro vider Source Feb 18, 2024 03:06 AM Outpatient Encounter ADMIN PAT ACTIVTIES (MASNONCT) IHE Encounter Template Text not used by CO Plan of Treatment: Future Appointments (+ 6 [...] 20 appointments. The data comes from all [place] treatment facilities. Appointment Date/Time Appointment Type Appointme nt Facility Name Apr 22, 2024 07:30 AM AMBULATORY - MEDICINE [facility] [place] [facility] Apr 27, 2024 08:00 AM AMBULATORY - MEDICINE [facility] [place] [facility] Social History: Smoking Status (Most current) and Tobacco Use (All prior to encounter date) This section includes the most current, and the historical, smoking and tobacco- related health factors from the [place] facility where the Encounter took place. Current Smoking Status This section includes the most current smoking, or tobacco-related health factor, from the [place] facility where the Encounter took place. Date/Time Current Smoking Status Comment Facil it Apr 29, 2023 10:00 AM VA-TOBACCO USE [facility] 30 [facility] Tobacco Use History This section includes a history of the smoking, or tobacco-related health factors, that were collected on or before the date of the Encounter. The data comes from the [place] facility where the Encounter took place. Date/Time Smoking Status/Tobac co Use Comment [facility] Apr 29, 2023 10:00 AM VA-TOBACCO USE ADVICE [facility] [place] [facility] Apr 29, 2023 10:00 AM VA-TOBACCO USE INSTITUTIONAL NUTRITION CONSULTANT NO [facility] [place] [facility] Apr 29, 2023 10:00 AM VA-TOBACCO USE MED NO [facility] [place] [facility] Apr 29, 2023 10:00 AM VA-TOBACCO USE WI 30 MIN OF WAKEUP [facility] [place] [facility] Apr 29, 2023 10:00 AM VA-TOBACCO USER EVERY DAY [facility] [place] [facility] Jul 19, 2021 10:25 AM VA-TOBACCO DOESNT USE WI 30 MIN WAKEUP [facility] [place] [facility] Jul 19, 2021 10:25 AM VA-TOBACCO USE 30 YEARS OR MORE [facility] [place] [facility] Jul 19, 2021 10:25 AM VA-TOBACCO USE ADVICE [facility] [place] [facility] Jul 19, 2021 10:25 AM VA-TOBACCO USE INSTITUTIONAL NUTRITION CONSULTANT NO [facility] [place] [facility] Jul 19, 2021 10:25 AM VA-TOBACCO USE MED NO [facility] [place] [facility] Jul 19, 2021 10:25 AM VA-TOBACCO USER EVERY DAY [facility] [place] [facility] May 09, 2020 08:00 AM VA-TOBACCO FORMER USER [facility] [place] [facility] May 09, 2020 08:00 AM VA-TOBACCO QUIT < 1 YEAR [facility] [place] [facility] Mar 23, 2019 09:01 AM VA-TOBACCO FORMER USER [facility] [place] [facility] Mar 23, 2019 09:01 AM VA-TOBACCO QUIT 5 TO < 15 YRS [facility] [place] [facility] Jan 19, 2018 08:24 AM VA-TOBACCO NEVER USED [facility] [place] [facility] Jan 17, 2017 08:30 AM QUIT TOBACCO USE > 7 YEARS AGO [facility] [place] [facility] Jan 17, 2017 08:30 AM QUIT TOBACCO USE 1-7 YEARS AGO [facility] [place] [facility] Apr 19, 2016 01:06 PM QUIT TOBACCO USE 1-7 YEARS AGO [facility] [place] [facility] May 05, 2014 08:45 AM QUIT TOBACCO USE 1-7 YEARS AGO [facility] [place] [facility] Apr 08, 2013 08:46 AM QUIT TOBACCO USE 1-7 YEARS AGO . [facility] [place] [facility] Jan 10, 2012 08:23 AM CURRENT SMOKER [facility] [place] [facility] Jan 10, 2012 08:23 AM V1-PT DECLINES REF TO TOBACCO CESS PRGM [facility] [place] [facility] Jan 10, 2012 08:23 AM V1-PT DECLINES TOBACCO CESSATION MEDS [facility] [place] [facility] Jan 10, 2012 08:23 AM V1-PT THINKING ABOUT QUIT TOBACCO USE [facility] [place] [facility] Apr 25, 2011 08:23 AM V1-PT DECLINES REF TO TOBACCO CESS PRGM [facility] [place] [facility] Apr 25, 2011 08:23 AM V1-PT DECLINES TOBACCO CESSATION MEDS [facility] [place] [facility] Apr 25, 2011 08:23 AM V1-PT THINKING ABOUT QUIT TOBACCO USE [facility] [place] [facility] Aug 16, 2010 09:12 AM CURRENT SMOKER 1 pk per wk [facility] [place] [facility] Aug 16, 2010 09:12 AM V1-PT DECLINES REF TO TOBACCO CESS PRGM [facility] Aug 16, 2010 09:12 AM V1-PT DECLINES TOBACCO CESSATION MEDS [facility] Aug 16, 2010 09:12 AM V1-PT NOT INTERESTED IN QUIT TOBACCO USE [facility] Dec 28, 2009 08:21 AM V1-PT DECLINES REF TO TOBACCO CESS PRGM [facility] Dec 28, 2009 08:21 AM V1-PT THINKING ABOUT QUIT TOBACCO USE [facility] Mar 20, 2009 10:53 AM V1-PT DECLINES REF TO TOBACCO CESS PRGM [facility] Mar 20, 2009 10:53 AM V1-PT DECLINES TOBACCO CESSATION MEDS [facility] Mar 20, 2009 10:53 AM V1-PT NOT INTERESTED IN QUIT TOBACCO USE [facility] Mar 13, 2009 09:37 AM CURRENT SMOKER just when he is drinking. He can't stand it otherwise. [facility] Advance Directives: All historical and current Section Date Range: From patient's date of to the date document was created. This section includes ALL of a patient's completed or amended [place] Advance and Rescinded Directives. The entries below indicate that a directive exists for the patient, but an actual copy is not included with this document. The data comes from all [place] facilities. Date Advance Directives Provider Source Jun 08, 2014 ADVANCE DIRECTIVE TARYN VILLATORO [facility] Encounter Notes: All associated encounter notes This section contains the clinical notes associated to the Encounter. Date/Time Encounter Note(s) Provider Source Feb 18, 2024 03:06 AM PHARMACY NOTE: LOCAL TITLE: V1 PHARMACY CUSTOMER CARE MEDICATION RENEWAL STANDARD TITLE: PHARMACY NOTE DATE OF NOTE: FEB 18, 2024@03:06 ENTRY DATE: FEB 18, 2024@03:06:29 AUTHOR: JOHN ESPOSITO COSIGNER: URGENCY: STATUS: COMPLETED V1 PHARMACY CUSTOMER CARE MEDICATION RENEWAL Has ADDENDA Date: Feb Division: [place] Pt referred by Pharmacy Call Center for medication renewal: Non-controlled/maintenanc e medication Medications requested: [id number] APIXABAN 5MG TAB *Patient is out of medication and would appreciate expedited delivery if available. Please contact the Outpatient Pharmacy for assistance with shipment.* Defer to primary care provider To be mailed . Please review and renew if appropriate. *This note was generated by [facility]/[place] Pharmacy Customer Care. If you have any questions or need assistance, do not contact this author. Please refer all questions to your local, on-site pharmacy departments. /samir/ JOHN ESPOSITO CPhT Community Recreation Coordinator, [place]/Pharmacy Customer Care Signed: 02/18/2024 03:06 Receipt Acknowledged By: 02/18/2024 11:27 /samir/ KINGSLEY COMBS, MSN, RN, CNL PRIMARY CARE TEAM NURSE for DOTTIE CHILEL 02/19/2024 10:31 /es/ Dao Castro PA-C STAFF PHYSICIAN LICENSED PLUMBER 02/19/2024 ADDENDUM STATUS: COMPLETED Apixaban ordered for window, not mail as we don't want him to miss any doses. He can pickup today or at latest, 02/19 when he comes for dental at 0830. Take immediately once he gets it. Please call him. /samir/ Dao Castro PA-C STAFF PHYSICIAN LICENSED PLUMBER Signed: 02/19/2024 10:30 Receipt Acknowledged By: * AWAITING SIGNATURE * CAROLYNN GOMEZ ERIC C CO [facility]
--- OUTSIDE RECORDS SUMMARY | 2024-02-23 07:48 | XMS_ITS | Patient Health Record ---
[facility] Organization [facility] Address [address] [place] [address] Care Team Providers Care Roof Truss Builder Name Role Phone Vijay Biggs Primary Care Provider Unav ailable Black, Karime Unavailable [phone] Allergies Allergen (clinical drug ingredient) Drug/Non Drug [...] X ray : Foot, left 3V 06/20/2011 14375-[id number] NAIL, 1-5 11/19/2012 [id number] NAIL, 1-5 11/18/201371856,[id number] TENDON SHEATH/LIGAMENT 1 50,V8510-PNL TENDON SHEATH/LIGAMENT 0 06/20/201107635,D3936-QEM TENDON SHEATH/LIGAMENT 1 Insurance Providers Payer Name Payer Address Payer Phone Subscriber Number Group Number Insured Name Patient Relationship to Insured Coverage Start Date Coverage End Date C[employer] [address] [place] [address] [id number] Marv Minaya Self - patient is the insured Medical (General) History Medical History History ICD Code neuropathy reflux mumps measles high blood pressure chicken pox back, hip, knee pain Arthritis Hypertension Heart Disease measles mumps chicken Pox bone implants and screws Surgical History Surgery Date(Month/Year) knee surgery neck surgery Hip replacement 09/2015 ablation 2013 Hospitalization History Reason Date(Month/Year) [facility], 3 days, CHF 04/2012
== END ==
LOC: HO.CARD 07:44
PROVIDERS: PCP Nurse Practitioner Family; Visit Provider Internal Medicine Cardiovascular Disease
DX: I71.20 Thoracic aortic aneurysm, without rupture, unspecified (principal)
CPT/HCPCS: 93306; Q9957

== ENCOUNTER → 2024-02-23 07:47 | Outpatient (BNV) | payer MEDICARE, SELFPAY | PROVIDERS: PCP Nurse Practitioner Family; Visit Provider Internal Medicine | DX: I35.0 Nonrheumatic aortic (valve) stenosis (principal); I71.21 Aneurysm of the ascending aorta, without rupture | CPT/HCPCS: 93306 ==

== ENCOUNTER 2024-05-13 08:15 | Outpatient (AMB) | payer MEDICARE, SELFPAY ==
--- OUTSIDE RECORDS SUMMARY | 2024-05-13 08:21 | XMS_ITS | Encounter Summary ---
Author Organization [facility] Address [address] [place] [address] Care Team Providers Care Ballistics Laboratory Gunsmith Name Role Phone Wayne Huston MD Primary Care Provider Encounter Details Date Type Department Care Team (Late st Contact Info) Description 05/04/2024 Lab Requisition [facility] - Main Lab [address] [facility] [place] [phone] Michael Mullins, PA [address] [place], [place] [id number] Urinary tract infection, site not specified Social History Tobacco Use Types Packs/Day Years Used Date Smoking Tobacco: Never Smokeless Tobacco: Never Alcohol Use Standard Drinks/Week Comments Not Asked 0 (1 standard drink = 0.6 oz pur e alcohol) Sex and Gender Information Value Date Recorded Sex Assigned at Not on file Legal Sex Male 11:19 PM EST Gender Identity Not on file Sexual Orientation Not on file documented as of this encounter Plan of Treatment Not on file documented as of this encounter Procedures Procedure Name Priority Date/Time Associated Diagnosis Comments CULTURE URINE Routine 05/04/2024 12:00 AM EDT Urinary tract infection, site not specified documented in this encounter Results * (ABNORMAL) Culture urine (05/04/2024 12:00 AM EDT) Culture, Urine >100,000 CFU/mL Escherichia coli(A) JOSSY 05/06/2024 11:09 AM EDT [facility] Urine Urine specimen obtained by clean catch procedure / Unknown 05/04/2024 05/04/2024 12:47 PM EDT Narrative Organism Antibiotic Method Susceptibility Escherichia coli Amoxicillin/Clavulanate JOSSY >=32 ug/ml: Resistant Escherichia coli Ampicillin/Sulbactam JOSSY 16 ug/ml: Intermediate Escherichia coli Piperacillin/Tazobactam JOSSY <=4 ug/ml: Susceptible Escherichia coli Cefazolin (Urine) JOSSY 8 ug/ml: Susceptible Escherichia coli Cefoxitin JOSSY 16 ug/ml: Intermediate Escherichia coli Ceftazidime JOSSY <=0.5 ug/ml: Susceptible Escherichia coli Ceftriaxone JOSSY <=0.25 ug/ml: Susceptible Escherichia coli Cefepime JOSSY <=0.12 ug/ml: Susceptible Escherichia coli Meropenem JOSSY <=0.25 ug/ml: Susceptible Escherichia coli Amikacin JOSSY 2 ug/ml: Susceptible Escherichia coli Gentamicin JOSSY <=1 ug/ml: Susceptible Escherichia coli Ciprofloxacin JOSSY <=0.06 ug/ml: Susceptible Escherichia coli Levofloxacin JOSSY <=0.12 ug/ml: Susceptible Escherichia coli Nitrofurantoin JOSSY <=16 ug/ml: Susceptible Escherichia coli Trimethoprim/Sulfamethoxazole JOSSY <=20 ug/ml: Susceptible [facility] MICROBIOLOGY - GENERAL SVETA AWA Final Result [facility] HOSPITAL LAB [address] [place] [address], documented in this encounter Visit Diagnoses Diagnosis Urinary tract infection, site not specified documented in this encounter Care Teams Ballistics Laboratory Gunsmith Relationship Specialty Start Date End Date Wayne Huston MD [address] [place] [address] [address] [place] [address] PCP - General Internal Medicine 02/10/11 documented as of this encounter
--- OUTSIDE RECORDS SUMMARY | 2024-05-13 08:21 | XMS_ITS | Patient Health Record ---
Author Organization [facility] Address [address] [place] [address] Care Team Providers Care Circuit Manager Name Role Phone Vijay Biggs Primary Care Provider Unav ailable Black, Karime Unavailable [phone] Allergies Allergen (clinical drug ingredient) Drug/Non Drug [...] X ray : Foot, left 3V 06/20/2011 [id number] NAIL, 1-5 11/19/2012 [id number] NAIL, 1-5 11/18/201341964,[id number] TENDON SHEATH/LIGAMENT 1 50,R4649-TKR TENDON SHEATH/LIGAMENT 0 06/20/201114850,C7926-DOE TENDON SHEATH/LIGAMENT 1 Insurance Providers Payer Name Payer Address Payer Phone Subscriber Number Group Number Insured Name Patient Relationship to Insured Coverage Start Date Coverage End Date [employer] [address] [place] [address] [id number] Marv Minaya Self - patient is the insured Medical (General) History Medical History History ICD Code neuropathy reflux mumps measles high blood pressure chicken pox back, hip, knee pain Arthritis Hypertension Heart Disease measles mumps chicken Pox bone implants and screws Surgical History Surgery Date(Month/Year) knee surgery neck surgery Hip replacement 09/2015 ablation 2013 Hospitalization History Reason Date(Month/Year) [facility], 3 days, CHF 04/2012
--- OUTSIDE RECORDS SUMMARY | 2024-05-13 08:21 | XMS_ITS ---
Author Organization [facility] Address [address] [place] [address] Care Team Providers Care Baker Bread Name Role Phone MARGOT SOSA Primary Care Provider UnavailGamaliel Woods Unavailable [phone] Dao Chowdary Unavailable Unavaila ble REASON FOR VISIT book appt Encounters Encounter Location Date Provider Diagnosis [facility] [address] [place] [address] 04/07/2024 Gamaliel Abernathy Plan Of Treatment Next Appt Details Provider Name:Gamaliel Abernathy , 05/18/2024 02:40:00 PM, [address], [address], [place], [address], Progress Notes * SOFIA GAYTANDOB:[birth year] (68 yo M)Acc No.[id number]:04/07/2024 Patient:?SOFIA GAYTAN :1955???Age:68 Y???Sex:Male Address:[address] [place] [address] [place] [address] * true * Date:? Generated for Marii karen/Gerardo/eTransmitting on:?05/13/2024 08:21 AM EDT
--- OUTSIDE RECORDS SUMMARY | 2024-05-13 08:21 | XMS_ITS | Patient Health Record ---
Author Organization [facility] Address [address] [place] [address] Care Team Providers Care Director Of First Impressions Name Role Phone MARGOT SOSA Primary Care Provider UnavailGamaliel Woods Unavailable [phone] Dao Chowdary Unavailable Unavaila ble Allergies Allergen (clinical drug ingredient) Drug/Non Drug Allergy documented on EMR Reaction Allergy Type Onset Date Status morphine Morphine Sulfate Unknown Drug Allergy Active Reason For Referral No [...] capsule Orally Onc e a day Active Immunizations Vaccine Route Administration Date Status Comme nts Influenza Unknown 10/11/2018 Administered Social History Alcohol Screen Question Answer Notes Did you have a drink containing alcohol in the p ast year? No Points 0 Interpretation Negative Section Notes: Nonsmoker since 2011; no sig EtOH Nonsmoker since 2011; no sig EtOH Nonsmoker since 2011; no sig EtOH Problems Problem Type SNOMED Code ICD Code Onset Dates Problem Status W/U Status Risk Notes Problem 973159745 Encounter for screening for malignant neoplasm of colon (Z12.11) Active confirmed Problem 994248861 History of adenomatous polyp of colon (Z86.010) Active confirmed Problem 369629714 Gastroesophageal reflux disease without esophagitis (K21.9) Active confirmed Problem 817737597846256 Preprocedural examination (Z01.818) Active confirmed Problem 610107215 Long-term (curre nt) use of anticoagulants, INR goal 2.0-3.0 (Z79.01) Active confirmed Encounters Encounter Location Date Provider Diagnosis [facility] [address] [place] [address] 03/16/2024 Gamaliel Abernathy [facility] [address] [place] [address] 04/07/2024 Gamaliel Abernathy Plan Of Treatment Future Test Test Name Order Date COLONOSCOPY 07/06/2014 COLONOSCOPY 09/23/2019 Next Appt Details Provider Name:Gamaliel Abernathy , 05/18/2024 02:40:00 PM, [address], [address], [place], [address], Insurance Providers Payer Name Payer Address Payer Phone Subscriber Number Group Number Insured Name Patient Relationship to Insured Coverage Start Date Coverage End Date MEDICARE OF [place] [address] [place] [address] [phone] [id number] SOFIA GAYTAN Self - patient is the insured MEDEX ATTN CLAIMS [address] [place] [address] [phone] [id number] SOFIA GAYTAN Self - patient is the insured Medical (General) History Medical History History ICD Code Colon polyps--tubular adenomas removed i n 1994, 2003, and 03/2009 A.fib--cardiac ablation--Dr. Palma Denies MS,DM,CVA,Lung disease,renal dise ase Sleep apnea-uses a CPAP machine GERD-EGD in 2003 was normal Mild sigmoid diverticulosis and small internal hemorrhoids noted on previous colonoscopies Negative colonoscopy in 08/2014 Hypertension Surgical History Surgery Date(Month/Year) Right knee surgery Sleep apnea surgery in the Left hip replacement--Dr. Sutherland 08/2015
--- OUTSIDE RECORDS SUMMARY | 2024-05-13 08:21 | XMS_ITS | Encounter Summary ---
Author Name [facility] Organization [facility] Address [address] [place] [address] Care Team Providers Care Cross Roller Name Role Phone BLAISE CASTRO Primary Care Provider Unavail able Insurance [...] SUPPLEMEN ROHITH MEDEX 2 Aug 10, 2018 [id number] Cresencio GAYTAN [place]IENT [place] SUPPLEMEN ROHITH MEDEX 2 Aug 10, 2018 [id number] Cresencio GAYTAN PATIENT [place] SUPPLEMEN ROHITH MEDEX 2 Aug 10, 2018 [id number] [phone] Cresencio GAYTAN PATIENT [place] SUPPLEMEN ROHITH AGAWA [facility] OF Aug 10, 2018 [id number] Cresencio GAYTAN PATIENT [employer] ([id number]) PRESCRIPT ION BCBSM A June 21, 2010 [facility] [id number] Cresencio GAYTAN PATIENT MEDICARE (WNR) MEDICARE (M) PART A Aug 10, 2018 PART A [id number] Cresencio GAYTAN PATIENT MEDICARE (WNR) MEDICARE (M) PART B Aug 10, 2018 PART B [id number] Cresencio GAYTAN PATIENT MEDICARE (WNR) MEDICARE (M) PART A Aug 10, 2018 PART A [id number] Cresencio GAYTAN PATIENT MEDICARE (WNR) MEDICARE (M) PART B Aug 10, 2018 PART B [id number] Cresencio GAYTAN PATIENT Selected Encounter This section includes the information on record at MD for the Encounter. Date/Time Encounter Type Encounter Description Reason Pro vider Source Feb 18, 2024 03:06 AM Outpatient Encounter ADMIN PAT ACTIVTIES (MASNONCT) IHE Encounter Template Text not used by MD Plan of Treatment: Future Appointments (+ 6 months) and Future Tests (+/- 45 days) The Plan of Treatment section includes future care activities for the patient from all MD treatmentfacilities. This section includes future appointments and future orders which are active, pending or scheduled. Future Appointments This section includes appointments that were scheduled to occur 6 months from the date of the Encounter, up to a maximum of 20 appointments. The data comes from all MD treatment facilities. Appointment Date/Time Appointment Type Appointme nt Facility Name Apr 22, 2024 07:30 AM AMBULATORY - MEDICINE [facility] Apr 27, 2024 08:00 AM AMBULATORY - MEDICINE [facility] Social History: Smoking Status (Most current) and Tobacco Use (All prior to encounter date) This section includes the most current, and the historical, smoking and tobacco- related health factors from the VA facility where the Encounter took place. Current Smoking Status This section includes the most current smoking, or tobacco-related health factor, from the MD facility where the Encounter took place. Date/Time Current Smoking Status Comment Corrina brock Apr 29, 2023 10:00 AM VA-TOBACCO USER EVERY DAY [facility] Tobacco Use History This section includes a history of the smoking, or tobacco-related health factors, that were collected on or before the date of the Encounter. The data comes from the [facility] where the Encounter took place. Date/Time Smoking Status/Tobac co Use Comment Facility Apr 29, 2023 10:00 AM VA-TOBACCO USE ADVICE [facility] Apr 29, 2023 10:00 AM VA-TOBACCO USE WEDDING COORDINATOR NO [facility] Apr 29, 2023 10:00 AM VA-TOBACCO USE MED NO [facility] [place] Apr 29, 2023 10:00 AM VA-TOBACCO USE WI 30 MIN OF WAKEUP [facility] Apr 29, 2023 10:00 AM VA-TOBACCO USER EVERY DAY [facility] [place] Jul 19, 2021 10:25 AM VA-TOBACCO DOESNT USE WI 30 MIN WAKEUP [facility] [place] [facility] Jul 19, 2021 10:25 AM VA-TOBACCO USE 30 YEARS OR MORE [facility] [place] Jul 19, 2021 10:25 AM VA-TOBACCO USE ADVICE [facility] [place] Jul 19, 2021 10:25 AM VA-TOBACCO USE WEDDING COORDINATOR NO [facility] Jul 19, 2021 10:25 AM VA-TOBACCO USE MED NO [facility] Jul 19, 2021 10:25 AM VA-TOBACCO USER EVERY DAY [facility] [place] May 09, 2020 08:00 AM VA-TOBACCO FORMER USER [facility] May 09, 2020 08:00 AM VA-TOBACCO QUIT < 1 YEAR [facility] Mar 23, 2019 09:01 AM VA-TOBACCO FORMER USER [facility] Mar 23, 2019 09:01 AM VA-TOBACCO QUIT 5 TO < 15 YRS [facility] [place] Jan 19, 2018 08:24 AM VA-TOBACCO NEVER USED [facility] [place] Jan 17, 2017 08:30 AM QUIT TOBACCO USE > 7 YEARS AGO [facility] [place] Jan 17, 2017 08:30 AM QUIT TOBACCO USE 1-7 YEARS AGO [facility] Apr 19, 2016 01:06 PM QUIT TOBACCO USE 1-7 YEARS AGO [facility] May 05, 2014 08:45 AM QUIT TOBACCO USE 1-7 YEARS AGO [facility] [place] Apr 08, 2013 08:46 AM QUIT TOBACCO USE 1-7 YEARS AGO . [facility] Jan 10, 2012 08:23 AM CURRENT SMOKER [facility] Jan 10, 2012 08:23 AM V1-PT DECLINES REF TO TOBACCO CESS PRGM [facility] Jan 10, 2012 08:23 AM V1-PT DECLINES TOBACCO CESSATION MEDS [facility] [place] Jan 10, 2012 08:23 AM V1-PT THINKING ABOUT QUIT TOBACCO USE [facility] Apr 25, 2011 08:23 AM V1-PT DECLINES REF TO TOBACCO CESS PRGM [facility] [place] Apr 25, 2011 08:23 AM V1-PT DECLINES TOBACCO CESSATION MEDS [facility] [place] Apr 25, 2011 08:23 AM V1-PT THINKING ABOUT QUIT TOBACCO USE [facility] [place] Aug 16, 2010 09:12 AM CURRENT SMOKER 1 pk per wk [facility] [place] Aug 16, 2010 09:12 AM V1-PT DECLINES REF TO TOBACCO CESS PRGM [facility] [place] [facility] Aug 16, 2010 09:12 AM V1-PT DECLINES TOBACCO CESSATION MEDS [facility] [place] Aug 16, 2010 09:12 AM V1-PT NOT INTERESTED IN QUIT TOBACCO USE [facility] [place] [facility] Dec 28, 2009 08:21 AM V1-PT DECLINES REF TO TOBACCO CESS PRGM [facility] [place] [facility] Dec 28, 2009 08:21 AM V1-PT THINKING ABOUT QUIT TOBACCO USE [facility] [place] [facility] Mar 20, 2009 10:53 AM V1-PT DECLINES REF TO TOBACCO CESS PRGM [facility] Mar 20, 2009 10:53 AM V1-PT DECLINES [...] Provider Source Jun 08, 2014 ADVANCE DIRECTIVE IRVINGKENRICKRenu [facility] Encounter Notes: All associated encounter notes This section contains the clinical notes associated to the Encounter. Date/Time Encounter Note(s) Provider Source Feb 24, 2024 09:49 AM ADDENDUM: LOCAL TITLE: Addendum STANDARD TITLE: ADDENDUM DATE OF NOTE: FEB 24, 2024@09:49:31 ENTRY DATE: FEB 24, 2024@09:49:32 AUTHOR: CAROLYNN GOMEZ COSIGNER: URGENCY: STATUS: COMPLETED Spoke with who reports has been sick for the past few days with cold sx and fever, did not attend his dental appointment 02/20/24 and has not picked up his medication. Tenngadonna millan is not well enough to drive to [facility] to machine operator hop picker medication from pharmacy window, and would like it mailed. Tennga reports understanding of consequences without medication and request having medication mailed /samir/ CAROLYNN GOMEZ LPN Signed: 02/24/2024 09:52 Receipt Acknowledged By: 02/25/2024 17:54 /samir/ Blaise Castro PA-C STAFF PHYSICIAN CHIEF CONSOLE OPERATOR 02/24/2024 12:33 /es/ NICOLE WREN PHARMD,BCPS CLINICAL PHARMACY PRACTITIONER ========= --- Original Document --- 02/18/24 V1 PHARMACY CUSTOMER CARE MEDICATION RENEWAL: Date: Feb Division: [facility] referred by Pharmacy Call Center for medication renewal: Non-controlled/maintena nce medication Medications requested: [id number] APIXABAN 5MG TAB *Patient is out of medication and would appreciate expedited delivery if available. Please contact the Outpatient Pharmacy for assistance with shipment.* Defer to primary care provider To be mailed . Please review and renew if appropriate. *This note was generated by [facility] Customer [facility]. If you have any questions or need assistance, do not contact this author. Please refer all questions to your local, on-site pharmacy departments. /es/ JOHN ESPOSITO CPhT Paper Pattern Folder, [place]/[facility]armacy Customer Care Signed: 02/18/2024 03:06 Receipt Acknowledged By: 02/18/2024 11:27 /es/ KINGSLEY COMBS, MSN, RN, CNL PRIMARY CARE TEAM NURSE for DOTTIE CHILEL 02/19/2024 10:31 /es/ Blaise Castro PA-C STAFF PHYSICIAN CHIEF CONSOLE OPERATOR 02/19/2024 ADDENDUM STATUS: COMPLETED Apixaban ordered for window, not mail as we don't want him to miss any doses. He can pickup today or at latest, 02/19 when he comes for dental at 0830. Take immediately once he gets it. Please call him. /samir/ Blaise Castro PA-C STAFF PHYSICIAN CHIEF CONSOLE OPERATOR Signed: 02/19/2024 10:30 Receipt Acknowledged By: 02/24/2024 08:03 /es/ CAROLYNN DIALLO LPN, LPN [facility] [place] Feb 19, 2024 10:29 AM ADDENDUM: LOCAL TITLE: Addendum STANDARD TITLE: ADDENDUM DATE OF NOTE: FEB 19, 2024@10:29:36 ENTRY DATE: FEB 19, 2024@10:29:37 AUTHOR: BLAISE CASTRO EXP COSIGNER: URGENCY: STATUS: COMPLETED Apixaban ordered for window, not mail as we don't want him to miss any doses. He can pickup today or at latest, 02/19 when he comes for dental at 0830. Take immediately once he gets it. Please call him. /samir/ Blaise Castro PA-C STAFF PHYSICIAN CHIEF CONSOLE OPERATOR Signed: 02/19/2024 10:30 Receipt Acknowledged By: 02/24/2024 08:03 /samir/ CAROLYNN GOMEZ LPN ========= --- Original Document --- 02/18/24 V1 PHARMACY CUSTOMER CARE MEDICATION RENEWAL: Date: Feb Division: [facility] referred by Pharmacy Call Center for medication renewal: Non-controlled/maintena nce medication Medications requested: [id number] APIXABAN 5MG TAB *Patient is out of medication and would appreciate expedited delivery if available. Please contact the Outpatient Pharmacy for assistance with shipment.* Defer to primary care provider To be mailed . Please review and renew if appropriate. *This note was generated by [facility]. If you have any questions or need assistance, do not contact this author. Please refer all questions to your local, on-site pharmacy departments. /es/ JOHN ESPOSITO CPhT Paper Pattern Folder, [place]/[facility] Customer Care Signed: 02/18/2024 03:06 Receipt Acknowledged By: 02/18/2024 11:27 /es/ KINGSLEY COMBS, MSN, RN, CNL PRIMARY CARE TEAM NURSE for DOTTIE CHILEL 02/19/2024 10:31 /samir/ Blaise Castro PA-C STAFF PHYSICIAN CHIEF CONSOLE OPERATOR BLAISE CASTRO MD [facility] Feb 18, 2024 03:06 AM PHARMACY NOTE: LOCAL TITLE: V1 PHARMACY CUSTOMER CARE MEDICATION RENEWAL STANDARD TITLE: PHARMACY NOTE DATE OF NOTE: FEB 18, 2024@03:06 ENTRY DATE: FEB 18, 2024@03:06:29 AUTHOR: JOHN ESPOSITO EXP COSIGNER: URGENCY: STATUS: COMPLETED V1 PHARMACY CUSTOMER CARE MEDICATION RENEWAL Has ADDENDA Date: Feb Division: [facility] referred by Pharmacy Call Center for medication renewal: Non-controlled/maintena nce medication Medications requested: [id number] APIXABAN 5MG TAB *Patient is out of medication and would appreciate expedited delivery if available. Please contact the Outpatient Pharmacy for assistance with shipment.* Defer to primary care provider To be mailed . Please review and renew if appropriate. *This note was generated by [facility] Customer [facility]. If you have any questions or need assistance, do not contact this author. Please refer all questions to your local, on-site pharmacy departments. /samir/ JOHN ESPOSITO CPhT Paper Pattern [employer], [place] Customer [facility] Signed: 02/18/2024 03:06 Receipt Acknowledged By: 02/18/2024 11:27 /samir/ KINGSLEY COMBS, MSN, RN, CNL PRIMARY CARE TEAM NURSE for DOTTIE CHILEL 02/19/2024 10:31 /samir/ Blaise Castro PA-C STAFF PHYSICIAN CHIEF CONSOLE OPERATOR 02/19/2024 ADDENDUM STATUS: COMPLETED Apixaban ordered for window, not mail as we don't want him to miss any doses. He can pickup today or at latest, 02/19 when he comes for dental at 0830. Take immediately once he gets it. Please call him. /samir/ Blaise Castro PA-C STAFF PHYSICIAN CHIEF CONSOLE OPERATOR Signed: 02/19/2024 10:30 Receipt Acknowledged By: 02/24/2024 08:03 /samir/ CAROLYNN GOMEZ LPN 02/24/2024 ADDENDUM STATUS: COMPLETED Spoke with who reports has been sick for the past few days with cold sx and fever, did not attend his dental appointment 02/20/24 and has not picked up his medication. Tennga yana is not well enough to drive to [facility] to machine operator hop picker medication from pharmacy window, and would like it mailed. Tennga reports understanding of consequences without medication and request having medication mailed /samir/ CAROLYNN GOMEZ LPN Signed: 02/24/2024 09:52 Receipt Acknowledged By: * AWAITING SIGNATURE * BLAISE CASTRO * AWAITING SIGNATURE * NICOLE WREN,JOHN Cooper [facility]
--- OUTSIDE RECORDS SUMMARY | 2024-05-13 08:21 | XMS_ITS | Clinical Summary ---
Author Organization [facility] Address [address] [place] [address] Phone Care Team Providers Care Machining Associate Name Role Phone Wayne Huston MD Primary Care Provider [phone] Encounters Date Type Department Care Team Description 05/04/2024 Lab Requisition [facility] - Main Lab [address] [facility] [place] [place] [address] Michael Mullins PA Urinary tract infection, site not specified from Last 3 Months Surgical History Surgery Date Site/Laterality Comments KNEE ARTHROSCOPY PROCEDURE: OK ARTHROSCOPY AID TX SPINE&/FX KNEE W/O FIXJ COLONOSCOPY PROCEDURE: HISTORICAL COLONOSCOPY Medical History Medical History Date Comments Chronic ischemic heart disea se, unspecified DX:Chronic ischemic heart di sease, unspecified Unspecified essential hypertension DX:Unspecified essential hypertension Esophageal reflux DX:Esophageal reflux History of adenoidectomy DX:Hist ory of adenoidectomy Family History Medical History Relation Name Comments Autoimmune disease Neg Hx Breast cancer Neg Hx Colon cancer Neg Hx Coronary artery disease Neg Hx Diabetes Neg Hx Heart attack Neg Hx Heart failure Neg Hx Hyperlipidemia Neg Hx Hypertension Neg Hx Mental illness Neg Hx Prostate cancer Neg Hx Sleep apnea Neg Hx Thyroid disease Neg Hx Social History Tobacco Use Types Packs/Day Years Used Date Smoking Tobacco: Never Smokeless Tobacco: Never Alcohol Use Standard Drinks/Week Comments Not Asked 0 (1 standard drink = 0.6 oz pur e alcohol) Sex and Gender Information Value Date Recorded Sex Assigned at Not on file Legal Sex Male 11:19 PM EST Gender Identity Not on file Sexual Orientation Not on file Obstetrics History Plan of Treatment Health Maintenance Due Date Last Done Comments DTaP,Tdap,and Td Vaccines (1 - Tdap) 1972 Pneumococcal Vaccine: 50+ Ye ars (1 of 1 - PCV) 09/11/2003 Zoster Vaccines (1 of 2) 09/11/2003 RSV Immunization Adult Patie nts (1 - Risk 60-74 years 1-dose series) 2013 COVID-19 Vaccine (1 2023-2 5 season) 2023 Influenza Vaccine (#1) 2023 Abdominal Aortic Aneurysm (A AA) Screen 05/05/2024 Cholesterol Screening (Lipid Panel) 05/05/2024 Colorectal Cancer Screening: Colonoscopy 05/05/2024 Depression Screening 05/05/2024 Falls Risk Assessment 05/05/2024 Hepatitis C Screening 05/05/2024 Hypertension/CHF/CAD Annual BMP Blood Test 05/05/2024 Medicare Annual Wellness Visit 05/05/2024 Social Influencers of Health Screening 05/05/2024 HIB Vaccines Aged Out No longer eligi ble based on patient's age to complete this topic HPV Vaccines Aged Out No longer eligi ble based on patient's age to complete this topic Hepatitis A Vaccines Aged Out No long er eligible based on patient's age to complete this topic Hepatitis B Vaccines Aged Out No long er eligible based on patient's age to complete this topic IPV Vaccines Aged Out No longer eligi ble based on patient's age to complete this topic MMR Vaccines Aged Out No longer eligi ble based on patient's age to complete this topic Meningococcal ACWY Vaccine Aged Out N o longer eligible based on patient's age to complete this topic Meningococcal B Vacine Aged Out No lo nger eligible based on patient's age to complete this topic RSV Immunization Patients Un josep 20 months Aged Out No longer eligible b ased on patient's age to complete this topic Varicella Vaccines Aged Out No longer eligible based on patient's age to complete this topic Procedures Procedure Name Priority Date/Time Associated Diagnosis Comments CULTURE URINE Routine 05/04/2024 12:00 AM EDT Urinary tract infection, site not specified from Last 3 Months Results * (ABNORMAL) Culture urine (05/04/2024 12:00 AM EDT) Culture, Urine >100,000 CFU/mL Escherichia coli(A) JOSSY 05/06/2024 11:09 AM EDT [facility] Urine Urine specimen obtained by clean [...] Escherichia coli Trimethoprim/Sulfamethoxazole JOSSY <=20 ug/ml: Susceptible [facility] MICROBIOLOGY - GENERAL ORDE AWA Final Result [facility] ([facility] [address] [place] [address], from Last 3 Months Insurance MEDICARE [facility] Care Teams Machining Associate Relationship Specialty Start Date End Date Wayne Huston MD [address] [place] [address] Dr [address] [place] [address] [place] PCP - General Internal Medicine 02/10/11
--- OUTSIDE RECORDS SUMMARY | 2024-05-13 08:21 | XMS_ITS ---
Author Organization [facility] Address [address] [facility] [address] [place] [address] Care Team Providers Care Patent Leather Sorter Name Role Phone MARGOT SOSA Primary Care Provider UnavailGamaliel Woods Unavailable [phone] Dao Chowdary Unavailable Unavaila ble REASON FOR VISIT Patient presents today for gastritis Encounters Encounter Location Date Provider Diagnosis [facility] [address] [facility] [address] [place] [address] 03/16/2024 Gamaliel Abernathy Plan Of Treatment Next Appt Details Provider Name:Gamaliel Abernathy , 05/18/2024 02:40:00 PM, [address] [facility], [address], [place], [address], Progress Notes * SOFIA GAYTANDOB:[birth year] (68 yo M)Acc No.[id number]:03/16/2024 Progress Notes Patient:?LUCILA SOFIA Provider:?Gamaliel Abernathy MD :1955???Age:68 Y???Sex:Male Merirll e:03/16/2024 Address:[address] [place] [address], [id number] Pcp:MARGOT SOSA Subjective: * Chief Complaints: * ???1. Patient presents today for gastritis. * Medical History:? Objective: * Vitals:? Assessment: Plan: * Treatment: * * The named appointment provid er may or may not be the originator of this progress note, and it is not deemed complete until electronically signed by the appointment provider. Sign off status: Pending * Provider:?Gamaliel Abernathy MD Date:? 025 Generated for Terrence jones/Gerardo/Escobar on:?05/13/2024 08:20 AM EDT
--- OUTSIDE RECORDS SUMMARY | 2024-05-13 08:21 | XMS_ITS ---
Author Organization [facility] Address [address] [place] [address] Care Team Providers Care Commercial Carpenter Name Role Phone MARGOT SOSA Primary Care Provider UnavailGamaliel Woods Unavailable [phone] Dao Chowdary Unavailable Unavaila ble REASON FOR VISIT gastritis Encounters Encounter Location Date Provider Diagnosis [facility] [address] [place] [address] 04/06/2024 Gamaliel Abernathy Plan Of Treatment Next Appt Details Provider Name:Gamaliel Abernathy , 05/18/2024 02:40:00 PM, [address], [address], [place], [address], Progress Notes * FLORESSOFIA FIELDSDOB:[birth year] (68 yo M)Acc No.[id number]:04/06/2024 Progress Notes Patient:?SOFIA GAYTAN Provider:?Gamaliel Abernathy MD :1955???Age:68 Y???Sex:Male Merrill e:04/06/2024 Address:[address] [place] [address], [id number] Pcp:MARGOT SOSA Subjective: * Chief Complaints: * ???1. Gastritis. * Medical History:? Objective: * Vitals:? Assessment: [...]
--- OUTSIDE RECORDS SUMMARY | 2024-05-13 08:22 | XMS_ITS | Encounter Summary ---
Author Name [facility] [facility] Address [address] [place] [id number] Care Team Providers Care Tin Roofer Name Role Phone DAO CASTRO Primary Care [...] Name Patient's Relationship to Policy [place]co [place] SUPPLEMEN ROHITH MEDEX 2 Aug 10, 2018 [id number] Cresencio GAYTAN PATIENT [place] SUPPLEMEN ROHITH MEDEX 2 Aug 10, 2018 [id number] Cresencio GAYTAN PATIENT [place] SUPPLEMEN ROHITH MEDEX 2 Aug 10, 2018 [id number] Cresencio GAYTAN PATIENT [place] SUPPLEMEN ROHITH AGAWA [facility] OF Aug 10, 2018 [id number] [phone] Cresencio GAYTAN PATIENT [employer] ([id number]) PRESCRIPT ION BCBSM A June 21, 2010 [facility] [id number] Cresencio GAYTAN PATIENT MEDICARE (WNR) MEDICARE (M) PART A Aug 10, 2018 PART A [id number] [phone] Cresencio GAYTAN PATIENT MEDICARE (WNR) MEDICARE (M) PART B Aug 10, 2018 PART B [id number] Cresencio GAYTAN PATIENT MEDICARE (WNR) MEDICARE (M) PART A Aug 10, 2018 PART A [id number] Cresencio GAYTAN PATIENT MEDICARE (WNR) MEDICARE (M) PART B Aug 10, 2018 PART B [id number] Cresencio GAYTAN PATIENT Selected Encounter This section includes the information on record at [place] for the Encounter. Date/Time Encounter Type Encounter Description Reason Pro vider Source Oct 27, 2023 08:43 AM Outpatient Encounter ADMIN PAT ACTIVTIES (MASNONCT) IHE Encounter Template Text not used by [place] Plan of Treatment: Future Appointments (+ 6 months) and Future Tests (+/- 45 days) The Plan of Treatment section includes future care activities for the patient from all [place] treatmentfacilities. This section includes future appointments and future orders which are active, pending or scheduled. Future Appointments This section includes appointments that were scheduled to occur 6 months from the date of the Encounter, up to a maximum of 20 appointments. The data comes from all [place] treatment facilities. Appointment Date/Time Appointment Type Appointme nt Facility Name Apr 22, 2024 07:30 AM AMBULATORY - MEDICINE [facility] Social History: Smoking Status (Most current) and [...] 2023 10:00 AM VA-TOBACCO USER EVERY [facility] Tobacco Use History This section includes a history of the smoking, or tobacco-related health factors, that were collected on or before the date of the Encounter. The data comes from the [place] facility where the Encounter took place. Date/Time Smoking Status/Tobac co Use Comment Facility Apr 29, 2023 10:00 AM VA-TOBACCO USE ADVICE [facility] Apr 29, 2023 10:00 AM VA-TOBACCO USE C APPLICATION DEVELOPER NO [facility] Apr 29, 2023 10:00 AM VA-TOBACCO USE MED NO [facility] [place] Apr 29, 2023 10:00 AM VA-TOBACCO USE WI 30 MIN OF WAKEUP [facility] [place] [facility] Apr 29, 2023 10:00 AM VA-TOBACCO USER EVERY DAY [facility] [place] Jul 19, 2021 10:25 AM VA-TOBACCO DOESNT USE WI 30 MIN WAKEUP [facility] [place] [facility] Jul 19, 2021 10:25 AM VA-TOBACCO USE 30 YEARS OR MORE [facility] [place] [facility] Jul 19, 2021 10:25 AM VA-TOBACCO USE ADVICE [facility] [place] [facility] Jul 19, 2021 10:25 AM VA-TOBACCO USE C APPLICATION DEVELOPER NO [facility] [place] [facility] Jul 19, 2021 10:25 AM VA-TOBACCO USE MED NO [facility] [place] [facility] Jul 19, 2021 10:25 AM VA-TOBACCO USER EVERY DAY [facility] [place] [facility] May 09, 2020 08:00 AM VA-TOBACCO FORMER USER [facility] [place] [facility] May 09, 2020 08:00 AM VA-TOBACCO QUIT < 1 YEAR [facility] [place] [facility] Mar 23, 2019 09:01 AM VA-TOBACCO FORMER USER [facility] [place] [facility] Mar 23, 2019 09:01 AM VA-TOBACCO QUIT 5 TO < 15 YRS [facility] [place] [facility] Jan 19, 2018 08:24 AM VA-TOBACCO NEVER USED [facility] [place] [facility] Jan 17, 2017 08:30 AM QUIT TOBACCO USE > 7 YEARS AGO [facility] [place] Jan 17, 2017 08:30 AM QUIT TOBACCO USE 1-7 YEARS AGO [facility] [place] Apr 19, 2016 01:06 PM QUIT TOBACCO USE 1-7 YEARS AGO [facility] [place] [facility] May 05, 2014 08:45 AM QUIT TOBACCO USE 1-7 YEARS AGO [facility] [place] [facility] Apr 08, 2013 08:46 AM QUIT TOBACCO USE 1-7 YEARS AGO . [facility] Jan 10, 2012 08:23 AM CURRENT SMOKER [facility] [place] Jan 10, 2012 08:23 AM V1-PT DECLINES REF TO TOBACCO CESS PRGM [facility] [place] [facility] Jan 10, 2012 08:23 AM V1-PT DECLINES TOBACCO CESSATION MEDS [facility] [place] Jan 10, 2012 08:23 AM V1-PT THINKING ABOUT QUIT TOBACCO USE [facility] [place] [facility] Apr 25, 2011 08:23 AM V1-PT DECLINES REF TO TOBACCO CESS PRGM [facility] [place] [facility] Apr 25, 2011 08:23 AM V1-PT DECLINES TOBACCO CESSATION MEDS [facility] [place] [facility] Apr 25, 2011 08:23 AM V1-PT THINKING ABOUT QUIT TOBACCO USE [facility] [place] [facility] Aug 16, 2010 09:12 AM CURRENT SMOKER 1 pk per wk [facility] [place] [facility] Aug 16, 2010 09:12 AM V1-PT DECLINES REF TO TOBACCO CESS PRGM [facility] [place] [facility] Aug 16, 2010 09:12 AM V1-PT DECLINES TOBACCO CESSATION MEDS [facility] [place] [facility] Aug 16, 2010 09:12 AM V1-PT NOT INTERESTED IN QUIT TOBACCO USE [facility] [place] [facility] Dec 28, 2009 08:21 AM V1-PT DECLINES REF TO TOBACCO CESS PRGM [facility] [place] [facility] Dec 28, 2009 08:21 AM V1-PT THINKING ABOUT QUIT TOBACCO USE [facility] [place] [facility] Mar 20, 2009 10:53 AM V1-PT DECLINES REF TO TOBACCO CESS PRGM [facility] [place] [facility] Mar 20, 2009 10:53 AM V1-PT DECLINES TOBACCO CESSATION MEDS [facility] Mar 20, 2009 10:53 AM V1-PT NOT INTERESTED IN QUIT TOBACCO USE [facility] Mar 13, 2009 09:37 AM CURRENT SMOKER just when he is drinking. He can't stand it otherwise. [facility] Advance Directives: All historical and current Section Date Range: From patient's date of to the date document was created. This section includes ALL of a patient's completed or amended [place] Advance and Rescinded Directives. The entries below indicate that a directive exists for the patient, but an actual copy is not included with this document. The data comes from all [place] facilities. Date Advance Directives Provider Source Jun 08, 2014 ADVANCE DIRECTIVE TARYN VILLATORO [facility] Encounter Notes: All associated encounter notes This section contains the clinical notes associated to the Encounter. Date/Time Encounter Note(s) Provider Source Oct 27, 2023 08:43 AM MEDICATION MGT NOT E: LOCAL TITLE: MEDICATION RENEWAL STANDARD TITLE: MEDICATION MGT NOTE DATE OF NOTE: OCT 27, 2023@08:43 ENTRY DATE: OCT 27, 2023@08:43:39 AUTHOR: BRIAN FREEMAN EXP COSIGNER: URGENCY: STATUS: COMPLETED [facility] we have a re medication renewal for mailing please please renew if appropriate Active Outpatient Medications (including Supplies): Active Outpatient Medications Status = DRONEDARONE 400MG TAB 180 E> 10-20 0 90 LISINOPRIL 10MG TAB 90 E> 10-20 0 90 OMEPRAZOLE 20MG EC CAP 90 E> 10-20 0 90 /samir/ BRIAN FREEMAN FLEECER Signed: 10/27/2023 08:45 Receipt Acknowledged By: 10/30/2023 17:49 /samir/ Dao Castro PA-C STAFF PHYSICIAN OPENER TENDER BRIAN FREEMAN [facility]
--- OUTSIDE RECORDS SUMMARY | 2024-05-13 08:22 | XMS_ITS ---
Author Name [facility] [place] [facility] [place] Organization [facility] [place] [facility] [place] Address [address] [place] [address] Care Team Providers Care Cash Applications Associate Name Role Phone BLAISE MARTINEZ Primary Care [...] Greco's Name Patient's Relationship to Policy Greco [facility] MEDICARE SUPPLEMEN ROHITH MEDEX 2 Aug 10, 2018 [id number] Cresencio GAYTAN PATIENT BCBS ID MEDICARE SUPPLEMEN ROHITH MEDEX 2 Aug 10, 2018 [id number] [phone] [id number] Cresencio GAYTAN PATIENT [place] MEDICARE SUPPLEMEN ROHITH MEDEX 2 Aug 10, 2018 [id number] rCesencio GAYTAN PATIENT BCBS OF [facility] MEDICARE SUPPLEMEN ROHITH AGAWA [facility] OF Aug 10, 2018 [id number] [id number] Cresencio GAYTAN PATIENT [employer] ([id number]) PRESCRIPT ION BCBSM A June 21, 2010 [facility] [id number] Cresencio GAYTAN PATIENT MEDICARE (WNR) MEDICARE (M) PART A Aug 10, 2018 PART A [id number] Cresencio GAYTAN PATIENT MEDICARE (WNR) MEDICARE (M) PART B Aug 10, 2018 PART B [id number] Cresencio GAYTAN PATIENT MEDICARE (WNR) MEDICARE (M) PART A Aug 10, 2018 PART A [id number] Cresencio GAYTAN PATIENT MEDICARE (WNR) MEDICARE (M) PART B Aug 10, 2018 PART B [id number] Cresencio GAYTAN PATIENT Selected Encounter This section includes the information on record at [place] for the Encounter. Date/Time Encounter Type Encounter Description Reason Provider Source Apr 22, 2024 07:30 AM DETERMINE REFRACTIVE STATE OPTOMETRY ICD-10-CM L71.8 Other KELLI Cates Encounter Template Text not used by [place] Assessments - Encounter Diagnoses This section includes the primary and secondary diagnoses documented for the Encounter. Date/Time Primary/Secondary Diagnosis Diagnosis Name Provider Source Apr 22, 2024 07:52 AM PRIMARY Other rosacea CANDELARIO ALAN [facility] [place] [facility] Apr 22, 2024 07:52 AM SECONDARY Age-related nuclear cataract, bilateral CANDELARIO ALAN [facility] [place] [facility] Apr 22, 2024 07:52 AM SECONDARY Meibomian gland dysfnct left eye, upper and lower eyelids CANDELARIO ALAN [facility] [place] [facility] Apr 22, 2024 07:52 AM SECONDARY Meibomian gland dysfnct right eye, upper and lower eyelids CANDELARIO ALAN [facility] [place] [facility] Apr 22, 2024 07:52 AM 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 This section includes future appointments and future orders which are active, pending or scheduled. Future Appointments This section includes appointments that were scheduled to occur 6 months from the date of the Encounter, up to a maximum of 20 appointments. The data comes from all [place] treatment facilities. Appointment Date/Time Appointment Type Appointme nt Facility Name Apr 27, 2024 08:00 AM AMBULATORY - MEDICINE [facility] Lab Results: +/- 30 days of the encounter This section includes the Chemistry and Hematology Lab Results on record with [place] for the patient. Radiology Reports and Pathology Reports are provided separately, in subsequent sections. Lab Results This section contains the Chemistry/Hematology Results that were resulted 30 days before or 30 daysafter the date of the Encounter. Date/Time Source Result Type Result - Unit Interpretation Reference Range Comment Apr 22, 2024 07:55 AM [facility] LIPID PANEL FASTING Specimen Type: SERUM No comment entered. Ordering Provider: NAVA MARTINEZ Report Released Date/Time: Apr 29, 2023 10:22 AM Reporting Lab: [facility] [address] [facility] [address] Performing Lab: [address] [address] CHOLESTEROL 139 mg/dL TRIGLYCERIDE 107 mg/dL 0-150 LDL calculated 68 mg/dL 0-129 CHOL/HDL 2.8 HDL CHOLESTEROL 50 mg/dL 40-60 Apr 22, 2024 07:55 AM [facility] LIVER FUNCTION Specimen Type: SERUM No comment entered. Ordering Provider: NAVA MARTINEZ Report Released Date/Time: Apr 29, 2023 10:22 AM Reporting Lab: [facility] [address] [facility] [address] Performing Lab: [address] [address] PROTEIN,TOTAL 7.7 g/dL 6.0-8.3 ALBUMIN 3.9 g/dL 3.5-5.0 ALKALINE PHOSPHATASE 78 U/L 40-150 AST 18 U/L 5-34 ALT 17 U/L BILIRUBIN, TOTAL 0.4 mg/dL 0.2-1.2 Apr 22, 2024 07:55 AM [facility] BASIC METABOLIC PANEL (fasting) Specimen Type: SERUM No comment entered. Ordering Provider: NAVA MARTINEZ Report Released Date/Time: Apr 29, 2023 10:22 AM Reporting Lab: [address] [address] Performing Lab: [address] [address] UREA NITROGEN 12 mg/dL 7-25 GLUCOSE 102 mg/dL H 65-100 SODIUM 137 mmol/L 135-145 POTASSIUM 4.7 mmol/L 3.5-5.0 CHLORIDE 101 mmol/L 100-110 CO2 28 meq/L 20-30 CALCIUM 9.7 mg/dL 8.5-10.2 CREATININE, Serum 0.74 mg/dL 0.50-1.40 eGFR(CKD-EPI 2020) >90 mL/min >60 Apr 22, 2024 07:55 AM [facility] CBC AND DIFF (AUTO) Specimen Type: BLOOD No comment entered. Ordering Provider: NAVA MARTINEZ Report Released Date/Time: Apr 29, 2023 10:22 AM Reporting Lab: [address] [address] Performing Lab: [address] [address] WBC 5.94 10*3/uL 4.50-11.00 RBC 4.26 10*6/uL 4.23-5.66 HGB 13.3 g/dL 12.8-17 HCT 38.6 L 39.2-50.4 MCV 90.6 fL 82-99 MCHC 34.5 g/dL 30.8-35.1 PLT 237 10*3/uL 140-360 RDW-CV 13.5 12.0-16.0 MONO, ABS 0.53 10*3/uL 0.30-1.10 MCH 31.2 pg 26.2-32.6 NEUT % 67.4 43.7-75.8 LYMPH % 20.5 14.0-42.3 MONO % 8.9 5.1-13.7 EOS % 2.2 0.4-6.8 BASO % 0.8 0.1-2.0 NEUT, ABS 4.00 10*3/uL 2.20-7.60 LYMPH, ABS 1.22 10*3/uL 1.00-3.20 EOS, ABS 0.13 10*3/uL 0.03-0.44 BASO, ABS 0.05 10*3/uL 0.01-0.13 IMMATURE GRAN % 0.2 0.0-0.7 IMMATURE GRAN, ABS 0.01 10*3/uL 0.00-0.06 NRBC % 0.0 0.0-0.0 NRBC, ABS 0.00 10*3/uL 0.00-0.00 Social History: Smoking Status (Most current) and Tobacco Use (All prior to encounter date) This section includes the most current, and the historical, smoking and tobacco- related health factors from the [place] facility where the Encounter took place. Current Smoking Status This section includes the most current smoking, or tobacco-related health factor, from the [place] facility where the Encounter took place. Date/Time Current Smoking Status Comment [facility] Apr 29, 2023 10:00 AM VA-TOBACCO USE WI 30 MIN OF WAKEUP [facility] Tobacco Use History This section includes a history of the smoking, or tobacco-related health factors, that were collected on or before the date of the Encounter. The data comes from the [place] facility where the Encounter took place. Date/Time Smoking Status/Tobac co Use Comment [facility] Apr 29, 2023 10:00 AM VA-TOBACCO USE ADVICE [facility] Apr 29, 2023 10:00 AM VA-TOBACCO USE ACUTE DIALYSIS NURSE NO [place] [facility] [place] [facility] Apr 29, 2023 10:00 AM VA-TOBACCO USE MED NO [facility] Apr 29, 2023 10:00 AM VA-TOBACCO USE WI 30 MIN OF WAKEUP [facility] [place] [facility] Apr 29, 2023 10:00 AM VA-TOBACCO USER EVERY DAY [facility] [place] [facility] Jul 19, 2021 10:25 AM VA-TOBACCO DOESNT USE WI 30 MIN WAKEUP [facility] [place] [facility] Jul 19, 2021 10:25 AM VA-TOBACCO USE 30 YEARS OR MORE [facility] [place] [facility] Jul 19, 2021 10:25 AM VA-TOBACCO USE ADVICE [facility] [place] [facility] Jul 19, 2021 10:25 AM VA-TOBACCO USE ACUTE DIALYSIS NURSE NO [facility] [place] [facility] Jul 19, 2021 10:25 AM VA-TOBACCO USE MED NO [facility] [place] [facility] Jul 19, 2021 10:25 AM VA-TOBACCO USER EVERY DAY [facility] [place] [facility] May 09, 2020 08:00 AM VA-TOBACCO FORMER USER [facility] [place] [facility] May 09, 2020 08:00 AM VA-TOBACCO QUIT < 1 YEAR [facility] [place] [facility] Mar 23, 2019 09:01 AM VA-TOBACCO FORMER USER [facility] [place] [facility] Mar 23, 2019 09:01 AM VA-TOBACCO QUIT 5 TO < 15 YRS [facility] [place] [facility] Jan 19, 2018 08:24 AM VA-TOBACCO NEVER USED [facility] [place] [facility] Jan 17, 2017 08:30 AM QUIT TOBACCO USE > 7 YEARS AGO [facility] [place] [facility] Jan 17, 2017 08:30 AM QUIT TOBACCO USE 1-7 YEARS AGO [facility] [place] [facility] Apr 19, 2016 01:06 PM QUIT TOBACCO USE 1-7 YEARS AGO [facility] [place] [facility] May 05, 2014 08:45 AM QUIT TOBACCO USE 1-7 YEARS AGO [facility] [place] [facility] Apr 08, 2013 08:46 AM QUIT TOBACCO USE 1-7 YEARS AGO . [facility] [place] [facility] Jan 10, 2012 08:23 AM CURRENT SMOKER [facility] [place] [facility] Jan 10, 2012 08:23 AM V1-PT DECLINES REF TO TOBACCO CESS [facility] Jan 10, 2012 08:23 AM V1-PT DECLINES TOBACCO CESSATION MEDS [facility] Jan 10, 2012 08:23 AM V1-PT THINKING ABOUT QUIT TOBACCO USE [facility] [place] [facility] Apr 25, 2011 08:23 AM V1-PT DECLINES REF TO TOBACCO CESS [facility] Apr 25, 2011 08:23 AM V1-PT DECLINES TOBACCO CESSATION MEDS [facility] Apr 25, 2011 08:23 AM V1-PT THINKING ABOUT QUIT [facility]ACCO [facility] Aug 16, 2010 09:12 AM CURRENT SMOKER 1 pk per wk [facility] Aug 16, 2010 09:12 AM V1-PT DECLINES REF TO TOBACCO CESS [facility] Aug 16, 2010 09:12 AM V1-PT DECLINES TOBACCO CESSATION MEDS [facility] Aug 16, 2010 09:12 AM V1-PT NOT INTERESTED IN QUIT TOBACCO USE [facility] Dec 28, 2009 08:21 AM V1-PT DECLINES REF TO TOBACCO CESS [facility] Dec 28, 2009 08:21 AM V1-PT THINKING ABOUT QUIT TOBACCO USE [facility] Mar 20, 2009 10:53 AM V1-PT DECLINES REF TO TOBACCO CESS [facility] Mar 20, 2009 10:53 AM V1-PT DECLINES TOBACCO CESSATION MEDS [facility] Mar 20, 2009 10:53 AM V1-PT NOT INTERESTED IN QUIT TOBACCO USE [facility] Mar 13, 2009 09:37 AM CURRENT SMOKER just when he is drinking. He can't stand it otherwise. [facility] Advance Directives: All historical and current [...] Jun 08, 2014 ADVANCE DIRECTIVE TARYN VILLATORO [place] [facility] Encounter Notes: All associated encounter notes This section contains the clinical notes associated to the Encounter. Date/Time Encounter Note(s) Provider Source Apr 22, 2024 07:30 AM OPTOMETRY NOTE: LOCAL TITLE: OPTOMETRY NOTE STANDARD TITLE: OPTOMETRY NOTE DATE OF NOTE: APR 22, 2024@07:30 ENTRY DATE: APR 22, 2024@07:30:53 AUTHOR: RIVER ALAN EXP COSIGNER: URGENCY: STATUS: COMPLETED Active problems - Computerized Problem List is the source for the followin. Exposure to potentially hazardous substance ([facility] [id number]) 2. AF- Atrial Fibrillation ([facility] [id number]) 3. Abdominal aortic aneurysm 3.0 to 5.5 centimeters in male 4. Family history of colorectal cancer 5. History of total hip arthroplasty 6. Hernia, Ventral 7. PTSD 8. Hand Injuries * 9. Counseling on Substance Use and Abuse 10. Alcohol Dependence 11. Hearing loss * 12. Tinnitus * 13. Obesity * 14. Sleep Apnea 15. Gastroesophageal Reflux Disorder * 16. Hypertension * 17. Urgency of urination Active Outpatient Medications (including Supplies): Active Outpatient Medications Status 1) APIXABAN 5MG TAB TAKE ONE TABLET BY MOUTH TWICE DAILY ACTIVE 2) DRONEDARONE 400MG TAB TAKE ONE TABLET BY MOUTH TWICE DAILY ACTIVE 3) LISINOPRIL 10MG TAB TAKE ONE TABLET BY MOUTH ONCE DAILY TO ACTIVE CONTROL BLOOD PRESSURE 4) OMEPRAZOLE 20MG EC CAP TAKE ONE CAPSULE BY MOUTH EVERY DAY ACTIVE 5) ROSUVASTATIN CA 40MG TAB TAKE ONE-HALF TABLET BY MOUTH ONCE ACTIVE DAILY FOR CHOLESTEROL Indication: FOR HIGH CHOLESTEROL Active Non-VA Medications Status 1) Non-VA FISH OIL 500MG DHA/EPA CAP,ORAL BY MOUTH ACTIVE 2) Non-VA MULTIVITAMIN/MINERALS CAP/TAB 1 TABLET BY MOUTH EVERY ACTIVE DAY 3) Non-VA ROSUVASTATIN TAB BY MOUTH ACTIVE 4) Non-VA VITAMIN D3 (CHOLECALCIFEROL) TAB BY MOUTH ACTIVE 9 Total Medications Allergies: MORPHINE, CODEINE All medications including those prescribed by outside VA's, community providers, and all OTC meds were reviewed and reconciled with patient to the best of their abilities. This 68 year old MALE is seen today for eye examination. Medical, eye, personal, and social history are all reviewed and is contributory to today's visit for bilateral cataracts, dry eye disease as well as rosacea facies with chronic meibomian gland dysfunction. He has also been noted to have a posterior vitreous detachment right eye. Although he is on amiodarone since 2020 for atrial fibrillation he has not been noted to have related keratopathy in the past. His last eye examination was here on April 17, 2023. (-) Pain: (-) SHEPHERD: (-) Diplopia: (-) Flashes: (-) Floaters: (-) Amaurosis Fugax/Tia's: (-) Eye Injury: (-) Eye Surgery: (-) TBI: Chief Complaint: Blurred vision without glasses Vision: With 20/20 - (slow) right eye 20/20 left eye Without Correction Pupils, EOMS, confrontation cordon are all done and shows round somewhat miotic minimally reactive pupils without afferent pupillary defect with full extraocular motility and full confrontation cordon to finger counting each eye Current Wear: OD: +1.75 -0.50 axis 045 OS: +1.50 -0.50 axis 105 +2.50 add Refraction: OD: +1.75 -0.75 axis 045 20/20 OS: +1.50 -0.50 axis 105 20/20 +2.50 add 20/20 Tonometry: 11, 11 OD 12, 12OS Time: 7:25 AM dilated with tropicamide 1% each eye after dilation warning given and verbal consent obtained PreTreatment IOP: OD OS Pachymetry: Florid rosacea facies with rhinophyma Anterior segment: Lids: Dermatochalasis with lid winking and ptosis right and left upper lid with chronic meibomian gland dysfunction all 4 lids Conj: White and quiet each eye Cornea: Clear centrally without staining or pigment no amiodarone related keratopathy each eye decreased tear break-up time and meniscus each eye AC: 3+ and quiet each eye Iris: Normal each eye Lens: 1+ nuclear sclerosis each eye Vit: Posterior vitreous detachment right eye only clear left eye Fundus exam: Dilated: xxx Non dilated: C/D: 0.25 right eye 0.30 left eye with distinct disc margins and good color Macula: Normal each eye A/V: 1/2 each eye Vessels: Mild tortuosity each eye Periphery: No holes, tears, detachments each eye Impression: 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 Bilateral nuclear sclerotic cataracts not visually significant at present. Posterior vitreous detachment right eye without evidence of retinal hole, tear, detachment. History of atrial fibrillation on amiodarone 400 mg twice a day by mouth since 2020 without expected corneal keratopathy. Plan: Patient education as noted above reviewed exam findings now. Update glasses today. Return in 12 months or sooner if need be. Ophthalmic medication reconciliation: He is currently not taking or prescribed any ocular medications. Education: Discussed presence of early cataracts which are consistent with exam from last year and not impacting best corrected acuity at present. Return to Clinic 12 months or sooner if need be. Suicide Screen: C-SSRS Screening [place]-Suicide Severity Rating Scale (C-SSRS Screener) 1. Over [...] required due to responses to other questions. Medication Reconciliation: Outpatient: Has the patient been taking medications as documented in the EMLR? YES: The patient has been taking medications as documented in the EMLR. Essential Medication List for Review used to complete this medication reconciliation. INCLUDED IN THIS LIST: Alphabetical list of active outpatient prescriptions dispensed from this [place] (local) and dispensed from another [place] or [facility] facility (remote) as well as inpatient orders [...] whether with a VA or non-VA provider. JLV Link Data on this list may not be complete. Please check JLV. Allergies/ADRs (Tool #5) FACILITY ALLERGY/ADR -------- [facility] D CODEINE [facility] D MORPHINE [facility] [place] [facility] CODEINE [facility] [place] [facility] MORPHINE Med Recon NoGlossary (Tool #1) INCLUDED IN THIS LIST: Alphabetical list of active outpatient prescriptions dispensed from this VA (local) and dispensed from another [place] or [facility] facility (remote) as well as inpatient orders (local pending and active), local clinic medications, locally documented non-VA medications, and local prescriptions that have or been discontinued in the past 90 days. Non-VA Meds Last Documented On: Mar 15, 2021 NOTE The display of VA prescriptions dispensed from another [place] or [facility] facility (remote) is limited to active outpatient prescription entries matched to National Drug File at the originating site and may not include some items such as investigational drugs, compounds, etc. NOT INCLUDED IN THIS LIST: Medications self-entered by the patient into personal health records (i.e. [employer]) are NOT included in this list. Non-VA medications documented outside this [place], remote inpatient orders (regardless of status) and remote clinic medications are NOT included in this list. The patient and provider must always discuss medications the patient is taking, regardless of where the medication was dispensed or obtained. OUTPT APIXABAN 5MG TAB (Status = Active) TAKE ONE TABLET BY MOUTH TWICE DAILY Rx# [id number] Last Released: 02/24/24 Qty/Days Supply: Rx Expiration Date: 02/19/25 Refills Remainin OUTPT CARBOXYMETHYLCELLULOSE NA 0.5% OPH SOLN (Status = ) INSTILL 1 DROP INTO EACH EYE FOUR TIMES DAILY NEEDED FOR DRY EYE Rx# [id number] Last Released: 02/06/24 Qty/Days Supply: 45 Rx Expiration Date: 04/17/24 Refills Remainin Indication: FOR DRY EYE OUTPT DRONEDARONE 400MG TAB (Status = Active) TAKE ONE TABLET BY MOUTH TWICE DAILY Rx# [id number] Last Released: 03/20/24 Qty/Days Supply: 180 Rx Expiration Date: 10/30/24 Refills Remainin Non-VA FISH OIL 500MG DHA/EPA CAP,ORAL TAKE BY MOUTH OUTPT LISINOPRIL 10MG TAB (Status = Active) TAKE ONE TABLET BY MOUTH ONCE DAILY TO CONTROL BLOOD PRESSURE Rx# [id number] Last Released: 02/06/24 Qty/Days Supply: Rx Expiration Date: 10/30/24 Refills Remainin Non-VA MULTIVITAMIN/MINERALS CAP/TAB TAKE ONE TABLET BY MOUTH EVERY DAY OUTPT OMEPRAZOLE 20MG EC CAP (Status = Active) TAKE ONE CAPSULE BY MOUTH EVERY DAY Rx# [id number] Last Released: 02/06/24 Qty/Days Supply: Rx Expiration Date: 10/30/24 Refills Remainin OUTPT ROSUVASTATIN CA 40MG TAB (Status = Active) TAKE ONE-HALF TABLET BY MOUTH ONCE DAILY FOR CHOLESTEROL Rx# [id number] Last Released: 11/29/23 Qty/Days Supply: Rx Expiration Date: 09/18/24 Refills Remainin Indication: FOR HIGH CHOLESTEROL Non-VA ROSUVASTATIN TAB TAKE BY MOUTH Non-VA VITAMIN D3 (CHOLECALCIFEROL) TAB TAKE BY MOUTH SUPPLIES Declines printed copy of medication list now. ^^^^^^^^^^^^^^^^^^^^^^^^^^^^^^^ ^^^^^^^^^^^^^^^^^^^^^^^^^^^^^^^ ^^^^^^^^^^^^^^^^^^ ^^^^^^^^^^^^^^^^^^^^^^^^^^^^^^^ ^^^^^^^^^^^^^^^^^^^^^^^^^^^^^^^ ^^^^^^^^^^^^^^^^^^ Total time spent reviewing previous records, examining and counseling patient as well as entering orders with medical decision makin minutes -3 minutes for refraction equals 31 minutes. ^^^^^^^^^^^^^^^^^^^^^^^^^^^^^^^ ^^^^^^^^^^^^^^^^^^^^^^^^^^^^^^^ ^^^^^^^^^^^^^^^^^^ ^^^^^^^^^^^^^^^^^^^^^^^^^^^^^^^ ^^^^^^^^^^^^^^^^^^^^^^^^^^^^^^^ ^^^^^^^^^^^^^^^^^^ Alerting optometry health tech to order glasses as noted below. Rx: [facility] RX INFORMATION OD +1.75 -0.75 X45 Add:0.00 Pzm:0.00 Dir: Prz2:0.00 Dir2: OS +1.50 -0.50 X105 Add:0.00 Pzm:0.00 Dir: Prz2:0.00 Dir2: FITTING INFORMATION FPD:71 NPD: [place]:R: L: SEG HT:R: L: Tint:None Shade:None FRAME: BIG TWIST BLACK [id number] Right Lens: PLASTIC SINGLE VISION PHOTOCHROMIC ABRAHAM 1.498 PLASTIC CR39 Left Lens: PLASTIC SINGLE VISION PHOTOCHROMIC ABRAHAM 1.498 PLASTIC CR39 Rx: NHM RX INFORMATION OD +4.25 -0.75 X45 Add:0.00 Pzm:0.00 Dir: Prz2:0.00 Dir2: OS +4.00 -0.50 X105 Add:0.00 Pzm:0.00 Dir: Prz2:0.00 Dir2: FITTING INFORMATION FPD:68 NPD:68 [place]:R: L: SEG HT:R: L: Tint:None Shade:None FRAME: KELLY BERNAL [id number] Right Lens: PLASTIC SINGLE VISION CLEAR 1.498 PLASTIC CR39 Left Lens: PLASTIC SINGLE VISION CLEAR 1.498 PLASTIC CR39 /es/ River Alan OD CHIEF OF OPTOMETRY Signed: 04/22/2024 07:53 R[facility] ALAN [facility]
--- OUTSIDE RECORDS SUMMARY | 2024-05-13 08:22 | XMS_ITS | Continuity of Care Document ---
Author Name [facility] Organization [facility] Care Team Providers Care Medical Driver Name Role Phone [facility] Unavailable Unavailable Problems Combined list of problems from Department of Defense and Veterans Affairs facilities. It does not include entries that were removed or entered in error. Problem Status Onset Date Problem Type Date of Resolution Comments Source History of total hip arthroplasty Active 016 Condition Apr 19, 2016 Entered By: STORM MARTINEZ AM Comment: Left THR, [place] 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 [facility] Counseling on Substance Use and Abuse (ICD-9-CM V65.42) Active Condition [facility] Exposure to potentially hazardous substance (SCT 366919126945170) Active Condition May 20 4 Entered By: [...] Active Condition [facility] [place] [facility] Hypertension * (ICD-9-CM 401.9) [facility] Obesity * (ICD-9-CM 278.00) Active Condition [facility] [place] [facility] PTSD Active [facility] [place] [facility] Sleep Apnea (ICD-9-CM 780.57/786.09) [facility] [place] [facility] Tinnitus * (ICD-9-CM 388.30) [facility] [place] [facility] Urgency of urination (ICD-9-CM 788.63) Active Condition [facility] [place] [facility] Acute congestive heart failure Inactive Condition 09/06/2013 Sep 06, 2013 Entered By: STORM MARTINEZ AM Comment: one episode with onset of afib, since ablated. [facility] [place] [facility] Diagnosis: ICD-10-CM I48.91 Unspecified atrial fibrillation Active Diagnosis [facility] [place] [facility] Diagnosis: ICD-10-CM L71.8 Other rosacea Active Diagnosis [facility] [place] [facility] Diagnosis: ICD-10-CM Z77.29 Contact with and exposure to other hazardous substances Active Diagnosis [facility] [place] [facility] Diagnosis: ICD-10-CM K03.6 Deposits [accretions] on teeth Active Diagnosis [facility] [place] [facility] Diagnosis: ICD-10-CM Z46.0 Encounter for fit/adjst of spectacles and contact lenses Active Diagnosis [facility] Medications Combined list of outpatient medications from [...] PRIOR TO DENTAL APPOINTM ENT ORAL 05/25/2023 [id number] SMITH ALVAREZ 2023 20 [facility] APIXABAN 5MG TAB TAKE ONE TABLET BY MOUTH TWICE DAILY ORAL ACTIVE 02/19/2025 [id number] BLAISE MARTINEZ 2024 180 [facility] [place] [facility] APIXABAN 5MG TAB TAKE ONE TABLET BY MOUTH TWICE DAILY ORAL DISCONT INUED 11/20/2023 [id number] BLAISE MARTINEZ 2022 180 [facility] [place] [facility] CARBOXYMETH YLCELLULOSE NA 0.5% SOLN,OPH INSTILL 1 DROP INTO EACH EYE FOUR TIMES DAILY NEEDED FOR DRY EYE OPHTHA LMIC 04/17/2024 [id number] Cresencio ALAN 2023 45 [facility] [place] [facility] [facility] DRONEDARONE 400MG TAB TAKE ONE TABLET BY MOUTH TWICE DAILY ORAL ACTIVE 10/30/2024 [id number] BLAISE MARTINEZ 2023 180 [facility] [place] [facility] [facility] DRONEDARONE 400MG TAB TAKE ONE TABLET BY MOUTH TWICE DAILY ORAL DISCONT INUED 10/21/2023 [id number] RA JAMES HENRIQUEZ 2022 180 [facility] LISINOPRIL 10MG TAB TAKE ONE TABLET BY MOUTH ONCE DAILY TO CONTROL BLOOD PRESSURE ORAL ACTIVE 10/30/2024 [id number] BLAISE MARTINEZ 2023 90 [facility] [place] [facility] [facility] LISINOPRIL 10MG TAB TAKE ONE TABLET BY MOUTH ONCE DAILY TO CONTROL BLOOD PRESSURE ORAL DISCONT INUED 10/21/2023 [id number] RA JAMES HENRIQUEZ 2022 90 [facility] MAGNESIUM OXIDE TAB TAKE BY MOUTH ORAL ACTIVE BLAISE MARTINEZ 2024 [facility] [place] MULTIVITAMI NS W/MINERALS TAB TAKE ONE TABLET BY MOUTH EVERY DAY ORAL ACTIVE CANDY GRIGSBY O 2009 [facility] [place] [facility] NICOTINE POLACRILEX 2MG TAB,CHEWG GUM CHEW 1 PIECE BY MOUTH EVERY 2 HOURS NEEDED FOR NICOTINE REPLACEM ENT ORAL ACTIVE 04/28/2025 [id number] BLAISE MARTINEZ 2024 110 [facility] OMEPRAZOLE 20MG CAP,EC TAKE ONE CAPSULE BY MOUTH EVERY DAY ORAL ACTIVE 10/30/2024 [id number] BLAISE MARTINEZ 2023 90 [facility] OMEPRAZOLE 20MG CAP,EC TAKE ONE CAPSULE BY MOUTH EVERY DAY ORAL DISCONT INUED 10/21/2023 [id number] RA JAMES HENRIQUEZ 2022 90 [facility] ROSUVASTATI N CA 40MG TAB TAKE ONE-HALF TABLET BY MOUTH ONCE DAILY FOR CHOLESTE ROL ORAL DISCONT INUED BY PROVIDE R 09/18/2024 [id number] BLAISE MARTINEZ 2023 45 [facility] SERTRALINE HCL 100MG TAB TAKE 1.5 TABLETS BY MOUTH ONCE DAILY ORAL ACTIVE BLAISE MARTINEZ 2024 [facility] Allergies, Adverse Reactions, Alerts Combined list of allergies from Department of Defense and Veterans Affairs facilities. It does not include entries that were removed or entered in error. Substance Category Reaction Severity Reaction type Status Date Reported Comments Source CODEINE Propensity to adverse reactions to drug (finding) active 1 [facility] MORPHINE Propensity to adverse reactions to drug (finding) active 1 [facility] ROSUVASTATIN Propensity to adverse reactions to drug (finding) Itching MODERATE active 5 [facility] Immunizations Combined list of available immunizations from the Department of Defense and Veterans Affairs facilities. Immunization Series Date Given Administered By Site Reaction Lot Number CVX Code Drug Health And Fitness Instructor Status Comments Source INFLUENZA, UNSPECIFIED FORMULATION 2022 88 complet ed [facility] PNEUMOCOCCAL CONJUGATE PCV20, POLYSACCHARID E [id number] CONJUGATE, ADJUVANT, PF 2021 216 complet ed [...] DOSE 2 2020 207 complet ed MOD; [id number]; 1 [facility] COVID-19 (MODERNA), MRNA, LNP-S, PF, 100 MCG/0.5 ML DOSE 1 2020 207 complet ed MOD; [id number]; 1 [facility] [...] water dept. [facility] [place] [facility] TDAP 2002 115 complet ed via the water dept. [facility] [place] [facility] Results Combined list of recent chemistry, hematology and other laboratory results from Department of Defense and Veterans Affairs, ranging from 15 months to all on record, depending upon the facility. Order Name Results Value Reference Range Date Interpretation Specimen Comments Source LIPID PANEL FASTING CHOLESTEROL [MASS/VOLUM E] IN SERUM OR PLASMA 139 mg/dL 04/22 Specimen Type: SERUM No comment entered. Ordering Provider: Bo MARTINEZ Report Released Date/Time: Apr 29, 2023 10:22 AM Reporting Lab: [facility] [place] [facility] [address] [address] Performing Lab: [facility] [address] [address] [facility] LIPID PANEL FASTING TRIGLYCERID E [MASS/VOLUM E] IN SERUM OR PLASMA 107 mg/dL 0 - 150 04/22 Specimen Type: SERUM No comment entered. Ordering Provider: Bo MARTINEZ Report Released Date/Time: Apr 29, 2023 10:22 AM Reporting Lab: [facility] [address] [address] Performing Lab: [facility]TRN [facility] [address] [address] [facility] LIPID PANEL FASTING CHOLESTEROL IN LDL [MASS/VOLUM E] IN SERUM OR PLASMA BY CALCULATION 68 mg/dL 0 - 129 04/22 Specimen Type: SERUM No comment entered. Ordering Provider: Bo MARTINEZ Report Released Date/Time: Apr 29, 2023 10:22 AM Reporting Lab: [facility] [place] [facility] [address] [address] Performing Lab: [facility]ENTERTRN [facility] [address] [address] [facility] [place] [facility] LIPID PANEL FASTING CHOLESTEROL .TOTAL/CHOL ESTEROL IN HDL [MASS RATIO] IN SERUM OR PLASMA 2.8 04/22 Specimen Type: SERUM No comment entered. Ordering Provider: Bo MARTINEZ Report Released Date/Time: Apr 29, 2023 10:22 AM Reporting Lab: [facility] [place] [facility] [address] [address] Performing Lab: [facility] [place] [facility] [address] [address] [facility] [place] [facility] LIPID PANEL FASTING CHOLESTEROL IN HDL [MASS/VOLUM E] IN SERUM OR PLASMA 50 mg/dL 40 - 60 04/22 Specimen Type: SERUM No comment entered. Ordering Provider: Bo MARTINEZ Report Released Date/Time: Apr 29, 2023 10:22 AM Reporting Lab: [facility] [place] [facility] [address] [address] Performing Lab: [facility] [place] [facility] [address] [address] [facility] [place] [facility] LIVER FUNCTION PROTEIN [MASS/VOLUM E] IN SERUM OR PLASMA 7.7 g/dL 6.0 - 8.3 04/22 Specimen Type: SERUM No comment entered. Ordering Provider: Bo MARTINEZ Report Released Date/Time: Apr 29, 2023 10:22 AM Reporting Lab: [facility] [place] [facility] [address] [address] Performing Lab: [facility] [place] [facility] [address] [address] [facility] [place] [facility] LIVER FUNCTION ALBUMIN [MASS/VOLUM E] IN SERUM OR PLASMA 3.9 g/dL 3.5 - 5.0 04/22 Specimen Type: SERUM No comment entered. Ordering Provider: Bo MARTINEZ Report Released Date/Time: Apr 29, 2023 10:22 AM Reporting Lab: [facility] [place] [facility] [address] [address] Performing Lab: [facility] [place] [facility] [address] [address] [facility] [place] [facility] LIVER FUNCTION ALKALINE PHOSPHATASE [ENZYMATIC ACTIVITY/VO LUME] IN SERUM OR PLASMA 78 U/L 40 - 150 04/22 Specimen Type: SERUM No comment entered. Ordering Provider: Bo MARTINEZ Report Released Date/Time: Apr 29, 2023 10:22 AM Reporting Lab: [facility] [place] [facility] [address] [address] Performing Lab: [facility] [place] [facility] [address] [address] [facility] [place] [facility] LIVER FUNCTION ASPARTATE AMINOTRANSF ERASE [ENZYMATIC ACTIVITY/VO LUME] IN SERUM OR PLASMA 18 U/L 5 - 34 04/22 Specimen Type: SERUM No comment entered. Ordering Provider: Bo MARTINEZ Report Released Date/Time: Apr 29, 2023 10:22 AM Reporting Lab: [facility] [place] [address] [address] Performing Lab: [facility] [place] [facility] [address] [facility] [address] [facility] [place] [facility] LIVER FUNCTION ALANINE AMINOTRANSF ERASE [ENZYMATIC ACTIVITY/VO LUME] IN SERUM OR PLASMA 17 U/L 04/22 Specimen Type: SERUM No comment entered. Ordering Provider: Bo MARTINEZ Report Released Date/Time: Apr 29, 2023 10:22 AM Reporting Lab: [facility] [place] [address] [address] Performing Lab: [facility] [place] [address] [address] [facility] [place] [facility] LIVER FUNCTION BILIRUBIN.T OTAL [MASS/VOLUM E] IN SERUM OR PLASMA 0.4 mg/dL 0.2 - 1.2 04/22 Specimen Type: SERUM No comment entered. Ordering Provider: Bo MARTINEZ Report Released Date/Time: Apr 29, 2023 10:22 AM Reporting Lab: [facility] [place] [address] [address] Performing Lab: [facility] [place] [facility] [address] [facility] [address] [facility] [place] [facility] BASIC METABOLIC PANEL (fasting) UREA NITROGEN [MASS/VOLUM E] IN SERUM OR PLASMA 12 mg/dL 7 - 25 04/22 Specimen Type: SERUM No comment entered. Ordering Provider: Bo MARTINEZ Report Released Date/Time: Apr 29, 2023 10:22 AM Reporting Lab: [facility] [place] [facility] [address] [address] Performing Lab: [place] [facility] [address] [address] [facility] BASIC METABOLIC PANEL (fasting) GLUCOSE [MASS/VOLUM E] IN SERUM OR PLASMA 102 mg/dL 65 - 100 04/22 H Specimen Type: SERUM No comment entered. Ordering Provider: Bo MARTINEZ Report Released Date/Time: Apr 29, 2023 10:22 AM Reporting Lab: [facility] [place] [facility] [address] [address] Performing Lab: [facility] [place] [facility] [address] [address] [facility] TRN [facility] BASIC METABOLIC PANEL (fasting) SODIUM [MOLES/VOLU ME] IN SERUM OR PLASMA 137 mmol/L 135 - 145 04/22 Specimen Type: SERUM No comment entered. Ordering Provider: Bo MARTINEZ Report Released Date/Time: Apr 29, 2023 10:22 AM Reporting Lab: [facility] [place] [facility] [address] [address] Performing Lab: [place] [facility] [place] [facility] [address] [address] [facility] [place] [facility] BASIC METABOLIC PANEL (fasting) POTASSIUM [MOLES/VOLU ME] IN SERUM OR PLASMA 4.7 mmol/L 3.5 - 5.0 04/22 Specimen Type: SERUM No comment entered. Ordering Provider: Bo MARTINEZ Report Released Date/Time: Apr 29, 2023 10:22 AM Reporting Lab: [facility] [place] [facility] [address] [address] Performing Lab: [facility] [place] [facility] [address] [address] [facility] [place] [facility] BASIC METABOLIC PANEL (fasting) CHLORIDE [MOLES/VOLU ME] IN SERUM OR PLASMA 101 mmol/L 100 - 110 04/22 Specimen Type: SERUM No comment entered. Ordering Provider: Bo MARTINEZ Report Released Date/Time: Apr 29, 2023 10:22 AM Reporting Lab: [facility] [place] [facility] [address] [address] Performing Lab: [facility] [place] [facility] [address] [address] [place] [facility] [place] [facility] BASIC METABOLIC PANEL (fasting) CARBON DIOXIDE, TOTAL [MOLES/VOLU ME] IN SERUM OR PLASMA 28 meq/L 20 - 30 04/22 Specimen Type: SERUM No comment entered. Ordering Provider: Bo MARTINEZ Report Released Date/Time: Apr 29, 2023 10:22 AM Reporting Lab: [facility] [place] [facility] [address] [address] Performing Lab: [facility] [place] [facility] [address] [address] [facility] [place] [facility] BASIC METABOLIC PANEL (fasting) CALCIUM [MASS/VOLUM E] IN SERUM OR PLASMA 9.7 mg/dL 8.5 - 10.2 04/22 Specimen Type: SERUM No comment entered. Ordering Provider: Bo MARTINEZ Report Released Date/Time: Apr 29, 2023 10:22 AM Reporting Lab: [facility] [place] [facility] [address] [address] Performing Lab: [facility] [place] [facility] [address] [address] [facility] [place] [facility] BASIC METABOLIC PANEL (fasting) CREATININE [MASS/VOLUM E] IN SERUM OR PLASMA 0.74 mg/dL 0.50 - 1.40 04/22 Specimen Type: SERUM No comment entered. Ordering Provider: Bo MARTINEZ Report Released Date/Time: Apr 29, 2023 10:22 AM Reporting Lab: [facility] [place] [facility] [address] [address] Performing Lab: [facility] [place] [address] [address] [facility] [place] [facility] BASIC METABOLIC PANEL (fasting) GLOMERULAR FILTRATION RATE/1.73 SQ M.PREDICTED [VOLUME RATE/AREA] IN SERUM, PLASMA OR BLOOD BY CREATININE- BASED FORMULA (CKD-EPI 2020) >90mL/ min 60 04/22 Specimen Type: SERUM No comment entered. Ordering Provider: Bo MARTINEZ Report Released Date/Time: Apr 29, 2023 10:22 AM Reporting Lab: [facility] [place] [address] [address] Performing Lab: [facility] [place] [address] [address] [facility] CBC AND DIFF (AUTO) LEUKOCYTES [#/VOLUME] IN BLOOD BY AUTOMATED COUNT 5.94 10*3/u L 4.50 - 11.00 04/22 Specimen Type: BLOOD No comment entered. Ordering Provider: Bo MARTINEZ Report Released Date/Time: Apr 29, 2023 10:22 AM Reporting Lab: [facility] [place] [address] [address] Performing Lab: [facility] [place] [address] [address] [facility] [place] [facility] CBC AND DIFF (AUTO) ERYTHROCYTE S [#/VOLUME] IN BLOOD BY AUTOMATED COUNT 4.26 10*6/u L 4.23 - 5.66 04/22 Specimen Type: BLOOD No comment entered. Ordering Provider: Bo MARTINEZ Report Released Date/Time: Apr 29, 2023 10:22 AM Reporting Lab: [facility] [place] [facility] [address] [address] Performing Lab: [facility] [place] [facility] [address] [facility] [address] [facility] [place] [facility] CBC AND DIFF (AUTO) HEMOGLOBIN [MASS/VOLUM E] IN BLOOD 13.3 g/dL 12.8 - 17 04/22 Specimen Type: BLOOD No comment entered. Ordering Provider: Bo MARTINEZ Report Released Date/Time: Apr 29, 2023 10:22 AM Reporting Lab: [facility] [place] [facility] [address] [facility] [address] Performing Lab: [facility] [place] [facility] [address] [facility] [address] [place] [facility] [place] [facility] CBC AND DIFF (AUTO) HEMATOCRIT [VOLUME FRACTION] OF BLOOD BY AUTOMATED COUNT 38.6 39.2 - 50.4 04/22 L Specimen Type: BLOOD No comment entered. Ordering Provider: Bo MARTINEZ Report Released Date/Time: Apr 29, 2023 10:22 AM Reporting Lab: [facility] [place] [facility] [address] [address] Performing Lab: [facility] [place] [facility] [address] [facility] [address] [facility] [place] [facility] CBC AND DIFF (AUTO) MCV [ENTITIC VOLUME] BY AUTOMATED COUNT 90.6 fL 82 - 99 04/22 Specimen Type: BLOOD No comment entered. Ordering Provider: Bo MARTINEZ Report Released Date/Time: Apr 29, 2023 10:22 AM Reporting Lab: [facility] [place] [facility] [address] [facility] [address] Performing Lab: [facility] [place] [facility] [address] [facility] [address] [facility] [place] [facility] CBC AND DIFF (AUTO) MCHC [MASS/VOLUM E] BY AUTOMATED COUNT 34.5 g/dL 30.8 - 35.1 04/22 Specimen Type: BLOOD No comment entered. Ordering Provider: Bo MARTINEZ Report Released Date/Time: Apr 29, 2023 10:22 AM Reporting Lab: [facility] [place] [facility] [address] [facility] [address] Performing Lab: [facility] [place] [facility] [address] [facility] [address] [address] [facility] [place] [facility] CBC AND DIFF (AUTO) PLATELETS [#/VOLUME] IN BLOOD BY AUTOMATED COUNT 237 10*3/u L 140 - 360 04/22 Specimen Type: BLOOD No comment entered. Ordering Provider: Bo MARTINEZ Report Released Date/Time: Apr 29, 2023 10:22 AM Reporting Lab: [facility] [place] [facility] [address] [facility] [address] Performing Lab: [facility] [place] [facility] [address] [facility] [address] [address] [facility] [place] [facility] CBC AND DIFF (AUTO) ERYTHROCYTE DISTRIBUTIO N WIDTH [RATIO] BY AUTOMATED COUNT 13.5 12.0 - 16.0 04/22 Specimen Type: BLOOD No comment entered. Ordering Provider: Bo MARTINEZ Report Released Date/Time: Apr 29, 2023 10:22 AM Reporting Lab: [facility] [place] [facility] [address] [facility] [facility] [address] Performing Lab: [facility] [place] [facility] [address] [facility] [address] [facility] [place] [facility] CBC AND DIFF (AUTO) MONOCYTES [#/VOLUME] IN BLOOD BY AUTOMATED COUNT 0.53 10*3/u L 0.30 - 1.10 04/22 Specimen Type: BLOOD No comment entered. Ordering Provider: Bo MARTINEZ Report Released Date/Time: Apr 29, 2023 10:22 AM Reporting Lab: [facility] [place] [facility] [address] [facility] [address] Performing Lab: [facility] [place] [facility] [address] [facility] [address] [facility] [place] [facility] CBC AND DIFF (AUTO) MCH [ENTITIC MASS] BY AUTOMATED COUNT 31.2 pg 26.2 - 32.6 04/22 Specimen Type: BLOOD No comment entered. Ordering Provider: Bo MARTINEZ Report Released Date/Time: Apr 29, 2023 10:22 AM Reporting Lab: [facility] [place] [facility] [address] [facility] [address] Performing Lab: [facility] [place] [facility] [address] [facility] [address] [facility] [place] [facility] CBC AND DIFF (AUTO) NEUTROPHILS /100 LEUKOCYTES IN BLOOD BY AUTOMATED COUNT 67.4 43.7 - 75.8 04/22 Specimen Type: BLOOD No comment entered. Ordering Provider: Bo MARTINEZ Report Released Date/Time: Apr 29, 2023 10:22 AM Reporting Lab: [facility] [address] [facility] [address] Performing Lab: [facility] [address] [facility] [address] [facility] CBC AND DIFF (AUTO) LYMPHOCYTES /100 LEUKOCYTES IN BLOOD BY AUTOMATED COUNT 20.5 14.0 - 42.3 04/22 Specimen Type: BLOOD No comment entered. Ordering Provider: Bo MARTINEZ Report Released Date/Time: Apr 29, 2023 10:22 AM Reporting Lab: [facility] [address] [facility] [address] Performing Lab: [facility] [address] [facility] [address] [facility] CBC AND DIFF (AUTO) MONOCYTES/1 00 LEUKOCYTES IN BLOOD BY AUTOMATED COUNT 8.9 5.1 - 13.7 04/22 Specimen Type: BLOOD No comment entered. Ordering Provider: Bo MARTINEZ Report Released Date/Time: Apr 29, 2023 10:22 AM Reporting Lab: [facility] [address] [facility] [address] Performing Lab: [facility] [place] [facility] [address] [facility] [address] [facility] CBC AND DIFF (AUTO) EOSINOPHILS /100 LEUKOCYTES IN BLOOD BY AUTOMATED COUNT 2.2 0.4 - 6.8 04/22 Specimen Type: BLOOD No comment entered. Ordering Provider: Bo MARTINEZ Report Released Date/Time: Apr 29, 2023 10:22 AM Reporting Lab: [facility] [place] [facility] [address] [facility] [address] Performing Lab: [facility] [place] [facility] [address] [facility] [address] [facility] CBC AND DIFF (AUTO) BASOPHILS/1 00 LEUKOCYTES IN BLOOD BY AUTOMATED COUNT 0.8 0.1 - 2.0 04/22 Specimen Type: BLOOD No comment entered. Ordering Provider: Bo MARTINEZ Report Released Date/Time: Apr 29, 2023 10:22 AM Reporting Lab: [facility] [place] [facility] [address] [facility] [address] Performing Lab: [facility] [place] [facility] [address] [facility] [address] [facility] [place] [facility] CBC AND DIFF (AUTO) NEUTROPHILS [#/VOLUME] IN BLOOD BY AUTOMATED COUNT 4.00 10*3/u L 2.20 - 7.60 04/22 Specimen Type: BLOOD No comment entered. Ordering Provider: Bo MARTINEZ Report Released Date/Time: Apr 29, 2023 10:22 AM Reporting Lab: [facility] [place] [facility] [address] [facility] [address] Performing Lab: [facility] [place] [facility] [address] [facility] [address] [facility] [place] [facility] CBC AND DIFF (AUTO) LYMPHOCYTES [#/VOLUME] IN BLOOD BY AUTOMATED COUNT 1.22 10*3/u L 1.00 - 3.20 04/22 Specimen Type: BLOOD No comment entered. Ordering Provider: Bo MARTINEZ Report Released Date/Time: Apr 29, 2023 10:22 AM Reporting Lab: [facility] [place] [facility] [address] [facility] [address] Performing Lab: [facility] [place] [facility] [address] [facility] [address] [facility] [place] CBC AND DIFF (AUTO) EOSINOPHILS [#/VOLUME] IN BLOOD BY AUTOMATED COUNT 0.13 10*3/u L 0.03 - 0.44 04/22 Specimen Type: BLOOD No comment entered. Ordering Provider: Bo MARTINEZ Report Released Date/Time: Apr 29, 2023 10:22 AM Reporting Lab: [facility] [place] [facility] [address] [facility] [address] Performing Lab: [facility] [place] [facility] [address] [facility] [address] [facility] [place] CBC AND DIFF (AUTO) BASOPHILS [#/VOLUME] IN BLOOD BY AUTOMATED COUNT 0.05 10*3/u L 0.01 - 0.13 04/22 Specimen Type: BLOOD No comment entered. Ordering Provider: Bo MARTINEZ Report Released Date/Time: Apr 29, 2023 10:22 AM Reporting Lab: [facility] [place] [facility] [address] [facility] [address] Performing Lab: [facility] [place] [facility] [address] [facility] [address] [facility] [place] CBC AND DIFF (AUTO) IMMATURE GRANULOCYTE S/100 LEUKOCYTES IN BLOOD BY AUTOMATED COUNT 0.2 0.0 - 0.7 04/22 Specimen Type: BLOOD No comment entered. Ordering Provider: Bo MARTINEZ Report Released Date/Time: Apr 29, 2023 10:22 AM Reporting Lab: [facility] [place] [facility] [address] [facility] [address] Performing Lab: [facility] [place] [facility] [address] [facility] [address] [facility] [place] [facility] CBC AND DIFF (AUTO) IMMATURE GRANULOCYTE S [#/VOLUME] IN BLOOD BY AUTOMATED COUNT 0.01 10*3/u L 0.00 - 0.06 04/22 Specimen Type: BLOOD No comment entered. Ordering Provider: Bo MARTINEZ Report Released Date/Time: Apr 29, 2023 10:22 AM Reporting Lab: [facility] [place] [facility] [address] [facility] [address] Performing Lab: [facility] [place] [facility] [address] [facility] [address] [place] [facility] [place] [facility] CBC AND DIFF (AUTO) NUCLEATED ERYTHROCYTE S/100 LEUKOCYTES [RATIO] IN BLOOD BY AUTOMATED COUNT 0.0 0.0 - 0.0 04/22 Specimen Type: BLOOD No comment entered. Ordering Provider: Bo MARTINEZ Report Released Date/Time: Apr 29, 2023 10:22 AM Reporting Lab: [facility] [place] [facility] [address] [facility] [address] Performing Lab: [facility] [place] [facility] [address] [facility] [address] [facility] [place] [facility] CBC AND DIFF (AUTO) NUCLEATED ERYTHROCYTE S [#/VOLUME] IN BLOOD BY AUTOMATED COUNT 0.00 10*3/u L 0.00 - 0.00 04/22 Specimen Type: BLOOD No comment entered. Ordering Provider: Bo MARTINEZ Report Released Date/Time: Apr 29, 2023 10:22 AM Reporting Lab: [facility] [place] [facility] [address] [facility] [address] Performing Lab: [facility] [place] [facility] [address] [facility] [address] [facility] [place] [facility] LIVER FUNCTION PROTEIN [MASS/VOLUM E] IN SERUM OR PLASMA 7.3 g/dL 6.0 - 8.3 04/24 Specimen Type: SERUM No comment entered. Ordering Provider: Bo MARTINEZ Report Released Date/Time: Apr 16, 2023 11:34 AM Reporting Lab: [facility] [place] [facility] [address] [facility] [address] Performing Lab: [facility] [place] [facility] [address] [facility] [address] [facility] [place] [facility] LIVER FUNCTION ALBUMIN [MASS/VOLUM E] IN SERUM OR PLASMA 4.1 g/dL 3.5 - 5.0 04/24 Specimen Type: SERUM No comment entered. Ordering Provider: Bo MARTINEZ Report Released Date/Time: Apr 16, 2023 11:34 AM Reporting Lab: [facility] [place] [facility] [address] [facility] [address] Performing Lab: [facility] [place] [facility] [address] [facility] [address] [place] [facility] [place] [facility] LIVER FUNCTION ALKALINE PHOSPHATASE [ENZYMATIC ACTIVITY/VO LUME] IN SERUM OR PLASMA 75 U/L 40 - 150 04/24 Specimen Type: SERUM No comment entered. Ordering Provider: Bo MARTINEZ Report Released Date/Time: Apr 16, 2023 11:34 AM Reporting Lab: [facility] [place] [facility] [address] [facility] [address] Performing Lab: [facility] [place] [facility] [address] [facility] [address] [facility] [place] [facility] LIVER FUNCTION ASPARTATE AMINOTRANSF ERASE [ENZYMATIC ACTIVITY/VO LUME] IN SERUM OR PLASMA 21 U/L 5 - 34 04/24 Specimen Type: SERUM No comment entered. Ordering Provider: Bo MARTINEZ Report Released Date/Time: Apr 16, 2023 11:34 AM Reporting Lab: [facility] [place] [facility] [address] [facility] [address] Performing Lab: [facility] [place] [facility] [address] [facility] [address] [facility] [place] [facility] LIVER FUNCTION ALANINE AMINOTRANSF ERASE [ENZYMATIC ACTIVITY/VO LUME] IN SERUM OR PLASMA 25 U/L 04/24 Specimen Type: SERUM No comment entered. Ordering Provider: Bo MARTINEZ Report Released Date/Time: Apr 16, 2023 11:34 AM Reporting Lab: [facility] [place] [facility] [address] [facility] [address] Performing Lab: [facility] [place] [facility] [address] [facility] [address] [facility] [place] [facility] LIVER FUNCTION BILIRUBIN.T OTAL [MASS/VOLUM E] IN SERUM OR PLASMA 0.3 mg/dL 0.2 - 1.2 04/24 Specimen Type: SERUM No comment entered. Ordering Provider: Bo MARTINEZ Report Released Date/Time: Apr 16, 2023 11:34 AM Reporting Lab: [facility] [place] [facility] [address] [facility] [address] Performing Lab: [facility] [place] [address] [address] [place] [facility] [place] [facility] BASIC METABOLIC PANEL (fasting) UREA NITROGEN [MASS/VOLUM E] IN SERUM OR PLASMA 16 mg/dL 7 - 25 04/24 Specimen Type: SERUM No comment entered. Ordering Provider: Bo MARTINEZ Report Released Date/Time: Apr 16, 2023 11:34 AM Reporting Lab: [facility] [place] [facility] [address] [facility] [address] Performing Lab: [facility] [place] [facility] [address] [facility] [address] [facility] [place] [facility] BASIC METABOLIC PANEL (fasting) GLUCOSE [MASS/VOLUM E] IN SERUM OR PLASMA 99 mg/dL 65 - 100 04/24 Specimen Type: SERUM No comment entered. Ordering Provider: Bo MARTINEZ Report Released Date/Time: Apr 16, 2023 11:34 AM Reporting Lab: [facility] [place] [facility] [address] [facility] [address] Performing Lab: [facility] [place] [facility] [address] [facility] [address] [facility] [place] [facility] BASIC METABOLIC PANEL (fasting) SODIUM [MOLES/VOLU ME] IN SERUM OR PLASMA 140 mmol/L 135 - 145 04/24 Specimen Type: SERUM No comment entered. Ordering Provider: Bo MARTINEZ Report Released Date/Time: Apr 16, 2023 11:34 AM Reporting Lab: [facility] [place] [facility] [address] [facility] [address] Performing Lab: [facility] [facility] [address] [facility] [address] [facility] [place] [facility] BASIC METABOLIC PANEL (fasting) POTASSIUM [MOLES/VOLU ME] IN SERUM OR PLASMA 4.5 mmol/L 3.5 - 5.0 04/24 Specimen Type: SERUM No comment entered. Ordering Provider: Bo MARTINEZ Report Released Date/Time: Apr 16, 2023 11:34 AM Reporting Lab: [facility] [place] [address] [address] Performing Lab: [facility] [place] [address] [address] [facility] [place] [facility] BASIC METABOLIC PANEL (fasting) CHLORIDE [MOLES/VOLU ME] IN SERUM OR PLASMA 103 mmol/L 100 - 110 04/24 Specimen Type: SERUM No comment entered. Ordering Provider: Bo MARTINEZ Report Released Date/Time: Apr 16, 2023 11:34 AM Reporting Lab: [facility] [place] [facility] [address] [facility] [address] Performing Lab: [facility] [place] [address] [address] [facility] [place] [facility] BASIC METABOLIC PANEL (fasting) CARBON DIOXIDE, TOTAL [MOLES/VOLU ME] IN SERUM OR PLASMA 27 meq/L 20 - 30 04/24 Specimen Type: SERUM No comment entered. Ordering Provider: Bo MARTINEZ Report Released Date/Time: Apr 16, 2023 11:34 AM Reporting Lab: [facility] [place] [address] [place] [address] Performing Lab: [facility] [place] [facility] [address] [facility] [address] [place] [facility] [facility] BASIC METABOLIC PANEL (fasting) CREATININE [MASS/VOLUM E] IN SERUM OR PLASMA 0.80 mg/dL 0.50 - 1.40 04/24 Specimen Type: SERUM No comment entered. Ordering Provider: Bo MARTINEZ Report Released Date/Time: Apr 16, 2023 11:34 AM Reporting Lab: [facility] [place] [facility] [address] [facility] [address] Performing Lab: [place] [facility] [place] [facility] [address] [facility] [address] [place] [facility] [place] [facility] BASIC METABOLIC PANEL (fasting) GLOMERULAR FILTRATION RATE/1.73 SQ M.PREDICTED [VOLUME RATE/AREA] IN SERUM, PLASMA OR BLOOD BY CREATININE- BASED FORMULA (CKD-EPI 2020) >90mL/ min 60 04/24 Specimen Type: SERUM No comment entered. Ordering Provider: Bo MARTINEZ Report Released Date/Time: Apr 16, 2023 11:34 AM Reporting Lab: [facility] [place] [facility] [address] [facility] [address] Performing Lab: [facility] [place] [address] [address] [facility] [place] [facility] LIPID PANEL FASTING CHOLESTEROL [MASS/VOLUM E] IN SERUM OR PLASMA 138 mg/dL 04/24 Specimen Type: SERUM No comment entered. Ordering Provider: Bo MARTINEZ Report Released Date/Time: Apr 16, 2023 11:34 AM Reporting Lab: [facility] [place] [facility] [address] [facility] [address] Performing Lab: [facility] [place] [facility] [address] [facility] [address] [facility] [place] [facility] LIPID PANEL FASTING TRIGLYCERID E [MASS/VOLUM E] IN SERUM OR PLASMA 83 mg/dL 0 - 150 04/24 Specimen Type: SERUM No comment entered. Ordering Provider: Bo MARTINEZ Report Released Date/Time: Apr 16, 2023 11:34 AM Reporting Lab: [facility] [place] [facility] [address] [facility] [address] Performing Lab: [facility] [facility] [address] [facility] [address] [facility] [place] [facility] LIPID PANEL FASTING CHOLESTEROL IN LDL [MASS/VOLUM E] IN SERUM OR PLASMA BY CALCULATION 68 mg/dL 0 - 129 04/24 Specimen Type: SERUM No comment entered. Ordering Provider: Bo MARTINEZ Report Released Date/Time: Apr 16, 2023 11:34 AM Reporting Lab: [facility] [place] [facility] [address] [facility] [address] Performing Lab: [facility] [place] [address] [address] [facility] [place] [facility] LIPID PANEL FASTING CHOLESTEROL .TOTAL/CHOL ESTEROL IN HDL [MASS RATIO] IN SERUM OR PLASMA 2.6 04/24 Specimen Type: SERUM No comment entered. Ordering Provider: Bo MARTINEZ Report Released Date/Time: Apr 16, 2023 11:34 AM Reporting Lab: [facility] [place] [facility] [address] [facility] [address] Performing Lab: [facility] [facility] [address] [facility] [address] [facility] [place] [facility] LIPID PANEL FASTING CHOLESTEROL IN HDL [MASS/VOLUM E] IN SERUM OR PLASMA 53 mg/dL 40 - 60 04/24 Specimen Type: SERUM No comment entered. Ordering Provider: Bo MARTINEZ Report Released Date/Time: Apr 16, 2023 11:34 AM Reporting Lab: [facility] [place] [facility] [address] [facility] [address] Performing Lab: [facility] [facility] [address] [facility] [address] [facility] [place] [facility] VITAMIN D (25-OH) 25-HYDROXYV ITAMIN D3 [MASS/VOLUM E] IN SERUM OR PLASMA 29 ng/mL 20 - 50 04/24 Specimen Type: SERUM No comment entered. Ordering Provider: Bo MARTINEZ Report Released Date/Time: Apr 16, 2023 11:34 AM Reporting Lab: [place] [facility] [place] [place] [address] [address] Performing Lab: [facility] [place] [address] [address] [facility] [place] [facility] CBC AND DIFF (AUTO) LEUKOCYTES [#/VOLUME] IN BLOOD BY AUTOMATED COUNT 6.22 10*3/u L 4.50 - 11.00 04/24 Specimen Type: BLOOD No comment entered. Ordering Provider: Bo MARTINEZ Report Released Date/Time: Apr 16, 2023 11:34 AM Reporting Lab: [facility] [place] [address] [address] Performing Lab: [facility] [place] [address] [address] [facility] [place] [facility] CBC AND DIFF (AUTO) ERYTHROCYTE S [#/VOLUME] IN BLOOD BY AUTOMATED COUNT 4.24 10*6/u L 4.23 - 5.66 04/24 Specimen Type: BLOOD No comment entered. Ordering Provider: Bo MARTINEZ Report Released Date/Time: Apr 16, 2023 11:34 AM Reporting Lab: [facility] [place] [address] [address] Performing Lab: [facility] [place] [address] [address] [facility] [facility] CBC AND DIFF (AUTO) HEMOGLOBIN [MASS/VOLUM E] IN BLOOD 13.2 g/dL 12.8 - 17 04/24 Specimen Type: BLOOD No comment entered. Ordering Provider: Bo MARTINEZ Report Released Date/Time: Apr 16, 2023 11:34 AM Reporting Lab: [facility] [place] [address] [place] [address] Performing Lab: [facility] [place] [place] [facility] [address] [facility] [address] [place] [facility] [place] [facility] CBC AND DIFF (AUTO) HEMATOCRIT [VOLUME FRACTION] OF BLOOD BY AUTOMATED COUNT 38.6 39.2 - 50.4 04/24 L Specimen Type: BLOOD No comment entered. Ordering Provider: Bo MARTINEZ Report Released Date/Time: Apr 16, 2023 11:34 AM Reporting Lab: [facility] [place] [facility] [address] [facility] [address] Performing Lab: [place] [facility] [place] [facility] [address] [facility] [address] [facility] [place] [facility] CBC AND DIFF (AUTO) MCV [ENTITIC VOLUME] BY AUTOMATED COUNT 91.0 fL 82 - 99 04/24 Specimen Type: BLOOD No comment entered. Ordering Provider: Bo MARTINEZ Report Released Date/Time: Apr 16, 2023 11:34 AM Reporting Lab: [facility] [place] [place] [facility] [address] [facility] [address] Performing Lab: [facility] [place] [facility] [address] [facility] [address] [facility] CBC AND DIFF (AUTO) MCHC [MASS/VOLUM E] BY AUTOMATED COUNT 34.2 g/dL 30.8 - 35.1 04/24 Specimen Type: BLOOD No comment entered. Ordering Provider: Bo MARTINEZ Report Released Date/Time: Apr 16, 2023 11:34 AM Reporting Lab: [facility] [place] [facility] [address] [facility] [address] Performing Lab: [place] [facility] [place] [address] [address] [facility] CBC AND DIFF (AUTO) PLATELETS [#/VOLUME] IN BLOOD BY AUTOMATED COUNT 228 10*3/u L 140 - 360 04/24 Specimen Type: BLOOD No comment entered. Ordering Provider: Bo MARTINEZ Report Released Date/Time: Apr 16, 2023 11:34 AM Reporting Lab: [facility] [place] [facility] [address] [facility] [address] Performing Lab: [facility] [place] [facility] [address] [facility] [address] [facility] [place] [facility] CBC AND DIFF (AUTO) ERYTHROCYTE DISTRIBUTIO N WIDTH [RATIO] BY AUTOMATED COUNT 13.2 12.0 - 16.0 04/24 Specimen Type: BLOOD No comment entered. Ordering Provider: Bo MARTINEZ Report Released Date/Time: Apr 16, 2023 11:34 AM Reporting Lab: [facility] [place] [facility] [address] [facility] [address] Performing Lab: [facility] [place] [facility] [address] [facility] [address] [facility] [place] [facility] CBC AND DIFF (AUTO) MONOCYTES [#/VOLUME] IN BLOOD BY AUTOMATED COUNT 0.62 10*3/u L 0.30 - 1.10 04/24 Specimen Type: BLOOD No comment entered. Ordering Provider: Bo MARTINEZ Report Released Date/Time: Apr 16, 2023 11:34 AM Reporting Lab: [facility] [place] [facility] [address] [facility] [address] Performing Lab: [facility] [place] [facility] [address] [facility] [address] [facility] [place] [facility] CBC AND DIFF (AUTO) MCH [ENTITIC MASS] BY AUTOMATED COUNT 31.1 pg 26.2 - 32.6 04/24 Specimen Type: BLOOD No comment entered. Ordering Provider: Bo MARTINEZ Report Released Date/Time: Apr 16, 2023 11:34 AM Reporting Lab: [facility] [place] [facility] [address] [facility] [address] Performing Lab: [facility] [place] [facility] [address] [facility] [address] [facility] [place] [facility] CBC AND DIFF (AUTO) NEUTROPHILS /100 LEUKOCYTES IN BLOOD BY AUTOMATED COUNT 61.4 43.7 - 75.8 04/24 Specimen Type: BLOOD No comment entered. Ordering Provider: Bo MARTINEZ Report Released Date/Time: Apr 16, 2023 11:34 AM Reporting Lab: [facility] [place] [facility] [address] [place] [address] Performing Lab: [facility] [place] [facility] [address] [facility] [address] [facility] [place] [facility] CBC AND DIFF (AUTO) LYMPHOCYTES /100 LEUKOCYTES IN BLOOD BY AUTOMATED COUNT 24.1 14.0 - 42.3 04/24 Specimen Type: BLOOD No comment entered. Ordering Provider: Bo MARTINEZ Report Released Date/Time: Apr 16, 2023 11:34 AM Reporting Lab: [facility] [address] [address] Performing Lab: [facility] [place] [address] [address] [facility] [place] [facility] CBC AND DIFF (AUTO) MONOCYTES/1 00 LEUKOCYTES IN BLOOD BY AUTOMATED COUNT 10.0 5.1 - 13.7 04/24 Specimen Type: BLOOD No comment entered. Ordering Provider: Bo MARTINEZ Report Released Date/Time: Apr 16, 2023 11:34 AM Reporting Lab: [facility] [place] [address] [address] Performing Lab: [facility] [place] [facility] [address] [place] [address] [facility] [place] [facility] CBC AND DIFF (AUTO) EOSINOPHILS /100 LEUKOCYTES IN BLOOD BY AUTOMATED COUNT 3.5 0.4 - 6.8 04/24 Specimen Type: BLOOD No comment entered. Ordering Provider: Bo MARTINEZ Report Released Date/Time: Apr 16, 2023 11:34 AM Reporting Lab: [facility] [address] [address] Performing Lab: [facility] [place] [facility] [address] [facility] [address] [facility] CBC AND DIFF (AUTO) BASOPHILS/1 00 LEUKOCYTES IN BLOOD BY AUTOMATED COUNT 0.8 0.1 - 2.0 04/24 Specimen Type: BLOOD No comment entered. Ordering Provider: Bo MARTINEZ Report Released Date/Time: Apr 16, 2023 11:34 AM Reporting Lab: [facility] [place] [facility] [address] [facility] [address] Performing Lab: [facility] [place] [facility] [address] [facility] [address] [facility] CBC AND DIFF (AUTO) NEUTROPHILS [#/VOLUME] IN BLOOD BY AUTOMATED COUNT 3.82 10*3/u L 2.20 - 7.60 04/24 Specimen Type: BLOOD No comment entered. Ordering Provider: Bo MARTINEZ Report Released Date/Time: Apr 16, 2023 11:34 AM Reporting Lab: [facility] [place] [facility] [address] [facility] [address] Performing Lab: [facility] [place] [facility] [address] [facility] [address] [facility] CBC AND DIFF (AUTO) LYMPHOCYTES [#/VOLUME] IN BLOOD BY AUTOMATED COUNT 1.50 10*3/u L 1.00 - 3.20 04/24 Specimen Type: BLOOD No comment entered. Ordering Provider: Bo MARTINEZ Report Released Date/Time: Apr 16, 2023 11:34 AM Reporting Lab: [facility] [place] [facility] [address] [facility] [address] Performing Lab: [facility] [place] [facility] [address] [facility] [address] [facility] CBC AND DIFF (AUTO) EOSINOPHILS [#/VOLUME] IN BLOOD BY AUTOMATED COUNT 0.22 10*3/u L 0.03 - 0.44 04/24 Specimen Type: BLOOD No comment entered. Ordering Provider: Bo MARTINEZ Report Released Date/Time: Apr 16, 2023 11:34 AM Reporting Lab: [facility] [address] [facility] [address] Performing Lab: [facility] [address] [facility] [address] [facility] CBC AND DIFF (AUTO) BASOPHILS [#/VOLUME] IN BLOOD BY AUTOMATED COUNT 0.05 10*3/u L 0.01 - 0.13 04/24 Specimen Type: BLOOD No comment entered. Ordering Provider: Bo MARTINEZ Report Released Date/Time: Apr 16, 2023 11:34 AM Reporting Lab: [facility] [address] [facility] [address] Performing Lab: [facility] [address] [address] [facility] CBC AND DIFF (AUTO) IMMATURE GRANULOCYTE S/100 LEUKOCYTES IN BLOOD BY AUTOMATED COUNT 0.2 0.0 - 0.7 04/24 Specimen Type: BLOOD No comment entered. Ordering Provider: Bo MARTINEZ Report Released Date/Time: Apr 16, 2023 11:34 AM Reporting Lab: [facility] [address] [facility] [address] Performing Lab: [facility] [address] [facility] [address] [facility] CBC AND DIFF (AUTO) IMMATURE GRANULOCYTE S [#/VOLUME] IN BLOOD 0.01 10*3/u L 0.00 - 0.06 04/24 Specimen Type: BLOOD No comment entered. Ordering Provider: Bo MARTINEZ Report Released Date/Time: Apr 16, 2023 11:34 AM Reporting Lab: [facility] [address] [facility] [address] Performing Lab: [facility] [address] [facility] [address] [facility] VITAMIN D 25-OH (Therapy monitor) 25-HYDROXYV ITAMIN [...] any concern. Vita MF, Katie DAVISON, Allison herzog SHEPHERD, et al. Evaluation, treatment and prevention of vitamin D deficiency: an Endocrine Society clinical practice guideline. J Clin Endocrinol Metab. 2011;96(7): 1911-30. For additional information , please refer to http://educ ation.appbackr .com/faq/FA Q130 (This link is being provided for information al/ educational purposes only.) This test was developed and its analytical performance characteris tics have been determined by [employer] [place] It has not been cleared or approved by the U.S. Food and Drug Administrat ion. This assay has been validated pursuant to the CLIA regulations and is used for clinical purposes. This test was developed and its analytical performance characteris tics have been determined by [employer] [place], [place]. It has not been cleared or approved by the U.S. Food and Drug Administrat ion. This assay has been validated pursuant to the CLIA regulations and is used for clinical purposes. Test Performed by [facility], [employer], [address] [place] [address] Hayes Granado M.D., Ph.D., Director of Laboratorie s , CLIA [id number] TEST PERFORMED AT: , Ordering Provider: Bo MARTINEZ Report Released Date/Time: Aug 30, 2021 11:50 AM Reporting Lab: [facility] [address] [facility] [address] Performing Lab: [facility] [address] [address] [facility] VITAMIN D 25-OH (Therapy monitor) [...] any concern. Vita MF, Katie DAVISON, Allison herzog SHEPHERD, et al. Evaluation, treatment and prevention of vitamin D deficiency: an Endocrine Society clinical practice guideline. J Clin Endocrinol Metab. 2011;96(7): 1911-30. For additional information , please refer to http://educ ation.appbackr .com/faq/FA Q199 (This link is being provided for information al/ educational purposes only.) This test was developed and its analytical performance characteris tics have been determined by [employer] [place], [place]. It has not been cleared or approved by the U.S. Food and Drug Administrat ion. This assay has been validated pursuant to the CLIA regulations and is used for clinical purposes. This test was developed and its analytical performance characteris tics have been determined by [employer] It has not been cleared or approved by the U.S. Food and Drug Administrat ion. This assay has been validated pursuant to the CLIA regulations and is used for clinical purposes. Test Performed by [facility], [employer] [facility], [address] [place] [address] Hayes Granado M.D., Ph.D., Director of Laboratorie s , CLIA [id number] TEST PERFORMED AT: , Ordering Provider: Bo MARTINEZ Report Released Date/Time: Aug 30, 2021 11:50 AM Reporting Lab: [facility] [address] [facility] [address] Performing Lab: [facility] [address] [address] [facility] VITAMIN D 25-OH (Therapy monitor) CALCIFEROL [...] additional information , please refer to http://educ ation.appbackr .com/faq/FA Q199 (This link is being provided for information al/ educational purposes only.) This test was developed and its analytical performance characteris tics have been determined by [employer] [place], [place]. It has not been cleared or approved by the U.S. Food and Drug Administrat ion. This assay has been validated pursuant to the CLIA regulations and is used for clinical purposes. This test was developed and its analytical performance characteris tics have been determined by [employer] [place], [place]. It has not been cleared or approved by the U.S. Food and Drug Administrat ion. This assay has been validated pursuant to the CLIA regulations and is used for clinical purposes. Test Performed by [facility], [employer] [facility], [address] [place], [place] Hayes Granado M.D., Ph.D., Director of Laboratorie s , CLIA [id number] TEST PERFORMED AT: , Ordering Provider: Bo MARTINEZ Report Released Date/Time: Aug 30, 2021 11:50 AM Reporting Lab: [facility] [place] [facility] [address] [facility] [address] Performing Lab: [facility] [place] [facility] [address] [address] [facility] Vital Signs Combined list of inpatient and outpatient Vital Signs from Department of Defense and Veterans Affairs, ranging from 12 months to all on record, depending upon the facility. Vital Sign Value Date Comments Source SYSTOLIC BLOOD PRESSURE 140 04/28/19 25 07:50:34 [facility] DIASTOLIC BLOOD PRESSURE 80 025 07:50:34 [facility] [place] [facility] PULSE OXIMETRY 97 04/27/2024 07:50:34 [facility] WEIGHT 277 04/27/2024 07:50:34 [facility] BMI 36 kg/m2 04/27/2024 07:50:34 [facility] PAIN 0 04/27/2024 07:50:34 [facility] HEIGHT 74 04/27/2024 07:50:34 [facility] TEMPERATURE 98.1 04/27/2024 07:50:34 [facility] PULSE 64 04/27/2024 07:50:34 [facility] RESPIRATION 16 04/27/2024 07:50:34 [facility] Encounters Combined list of: 1) Encounters from Department of Veterans Affairs facilities going backup to the last 18 months, not all VA inpatient encounters are included; 2) Encounters from the Department of Defense facilities going backup to 280 months. Location Location Details Encounter Type Encounter Number Reason For Visit Attending Provider ADM Date DC Date Status Disposition Source [facility] Outpatient [facility]counter [id number] 11/28 [facility]counter [id number] 12/30 [facility] Out[facility]counter [id number] 01/28 [facility]counter [id number] 03/14 [facility] [id number] 03/26 [facility] Out[facility] Encounter [id number] 04/03 [facility] COMPRE OPH EXAM EST PT 1/> [id number] Diagnos is: ICD-10- CM L71.8 Other rosaleaa ELISA ALAN 04/16 [facility] FIT SPECTACLES MONOFOCAL [id number] Diagnos is: ICD-10- CM Z46.0 Encount er for fit/adj st of spectac les and contact lenses ELISA ALAN 04/17 [facility] CLEAN/INSP ECT MAX COMP DENT [id number] Diagnos is: ICD-10- CM K03.6 Deposit s [accret ions] on teeth KDN ADEZHDAnatoliy 04/24 [facility] OFFICE O/P EST MOD 30 MIN [id number] Diagnos is: ICD-10- CM Z77.29 Contact with and exposur e to other hazardo us substan efren BLAISE MARTINEZ 04/28 [facility] En[facility] [id number] 1.10/26 [facility] Out[facility]counter [id number] 02/17 [facility] Out[facility] Encounter [id number] 02/18 [facility] DETERMINE REFRACTIVE STATE [id number] Diagnos is: ICD-10- CM L71.8 Other rosacea ELISA ALAN OSVALDO 04/22 [facility] Out[facility] Encounter [id number] 04/27 [facility] OFFICE O/P EST MOD 30 MIN [id number] Diagnos is: ICD-10- CM I48.91 Unspeci fied atrial fibrill BLAISE Murphy 04/27 [facility] [place] [place] [facility] Social History Combined list of available smoking, tobacco, and other social history from Department of Defense and Veterans Affairs facilities. Social History Type Response Date Comment Source Tobacco smoking status [facility]-TOBACCO USE EVERY DAY CIGARETTES 04/27/2024 [facility] [place] [facility] OTHER [facility] 04/27/2024 [facility] [place] [facility] History of tobacco use ND-TOBACCO USER EVERY DAY 04/29/2023 [facility] [place] [facility] History of tobacco use ND-TOBACCO USER EVERY DAY 07/19/2021 [facility] [place] [facility] of [facility] History of [facility] 5 TO < 15 YRS 03/23/2019 [facility] [place] [facility] History of tobacco use ND-TOBACCO NEVER USED 01/19/2018 [facility] [place] [facility] History of tobacco use QUIT TOBACCO USE 1-7 YEARS AGO 01/17/2017 [facility] [place] [facility] History of tobacco use QUIT TOBACCO USE 1-7 YEARS AGO 04/19/2016 [facility] [place] [facility] History of tobacco use QUIT TOBACCO USE 1-7 YEARS AGO 05/05/2014 [facility] [place] [facility] History of tobacco use QUIT TOBACCO USE 1-7 YEARS AGO 04/08/2013 . [facility] [place] [facility] History of tobacco use CURRENT SMOKER 01/10/2012 [facility] [place] [facility] History of tobacco use V1-PT DECLINES TOBACCO CESSATION MEDS 04/25/2011 [facility] [place] [facility] History of tobacco use CURRENT SMOKER 08/16/2010 1 pk per wk [facility] History of tobacco use V1-PT THINKING ABOUT QUIT TOBACCO USE 12/28/2009 [facility] History of tobacco use V1-PT DECLINES TOBACCO CESSATION MEDS 03/20/2009 [facility] History of tobacco use CURRENT SMOKER 03/13/2009 just when he is drinking. He can't stand it otherwise. [facility] Advance Directives List of completed, amended, or rescinded Advance Directives on record at Department of [facility] facilities. An actual copy of the Directive is not included. Date Advance Directive Provider Source 06/08/2014 ADVANCE DIRECTIVE TARYN VILLATORO [facility]
--- OUTSIDE RECORDS SUMMARY | 2024-05-13 08:22 | XMS_ITS | Encounter Summary ---
Author Name [facility] [place] [facility] [place] Address [address] [place] [id number] Care Team Providers Care Cancer Genetic Counselor Name Role Phone BLAISE CASTRO Primary Care [...] Name Patient's Relationship to Policy [place] SUPPLEMEN ROHITH MEDEX 2 Aug 10, 2018 [id number] Cresencio GAYTAN PATIENT [place] SUPPLEMEN ROHITH MEDEX 2 Aug 10, 2018 [id number] Cresencio GAYTANHETAL PATIENT [place] SUPPLEMEN ROHITH MEDEX 2 Aug 10, 2018 [id number] [phone] Cresencio GAYTAN PATIENT BCBS OF [facility] MEDICARE SUPPLEMEN ROHITH AGAWA [facility] Aug 10, 2018 [id number] Cresencio GAYTAN PATIENT [employer] ([id number]) PRESCRIPT ION BCBSM A June 21, 2010 [facility] [id number] Cresencio GAYTAN PATIENT MEDICARE (WNR) MEDICARE (M) PART A Aug 10, 2018 PART A [id number] Cresencio GAYTAN PATIENT MEDICARE (WNR) MEDICARE (M) PART B Aug 10, 2018 PART B [id number] Cresencio GAYTAN PATIENT MEDICARE (WNR) MEDICARE (M) PART A Aug 10, 2018 PART A [id number] Cresencio GAYTAN PATIENT MEDICARE (WNR) MEDICARE (M) PART B Aug 10, 2018 PART B [id number] Cresencio GAYTAN PATIENT Selected Encounter This section includes the information on record at CT for the Encounter. Date/Time Encounter Type Encounter Description Reason Provider Source Apr 27, 2024 08:00 AM OFFICE O/P EST MOD 30 MIN PRIMARY CARE/MEDICINE ICD-10-CM I48.91 Unspecified atrial fibrillation NAVA CASTRO IH Encounter Template Text not used by CT Assessments - Encounter Diagnoses This section includes the primary and secondary diagnoses documented for the Encounter. Date/Time Primary/Secondary Diagnosis Diagnosis Name Provider Source May 12, 2024 10:00 AM PRIMARY Unspecified atrial fibrillation NAVA CASTRO [facility] Lab Results: +/- 30 days of the encounter This section includes the Chemistry and Hematology Lab Results on record with CT for the patient. Radiology Reports and Pathology Reports are provided separately, in subsequent sections. Lab Results This section contains the Chemistry/Hematology Results that were resulted 30 days before or 30 daysafter the date of the Encounter. Date/Time Source Result Type Result - Unit Interpretation Reference Range Comment Apr 22, 2024 07:55 AM [facility] LIPID PANEL FASTING Specimen Type: SERUM No comment entered. Ordering Provider: NAVA CASTRO Report Released Date/Time: Apr 29, 2023 10:22 AM Reporting Lab: [facility] [address] [address] Performing Lab: [facility] [address] [address] CHOLESTEROL 139 mg/dL TRIGLYCERIDE 107 mg/dL 0-150 LDL calculated 68 mg/dL 0-129 CHOL/HDL 2.8 HDL CHOLESTEROL 50 mg/dL 40-60 Apr 22, 2024 07:55 AM [facility] LIVER FUNCTION Specimen Type: SERUM No comment entered. Ordering Provider: NAVA CASTRO Report Released Date/Time: Apr 29, 2023 10:22 AM Reporting Lab: [address] [address] Performing Lab: [address] [address] PROTEIN,TOTAL 7.7 g/dL 6.0-8.3 ALBUMIN 3.9 g/dL 3.5-5.0 ALKALINE PHOSPHATASE 78 U/L 40-150 AST 18 U/L 5-34 ALT 17 U/L BILIRUBIN, TOTAL 0.4 mg/dL 0.2-1.2 Apr 22, 2024 07:55 AM [facility] BASIC METABOLIC PANEL (fasting) Specimen Type: SERUM No comment entered. Ordering Provider: NAVA CASTRO Report Released Date/Time: Apr 29, 2023 10:22 AM Reporting Lab: [address] [address] Performing Lab: [address] [address] UREA NITROGEN 12 mg/dL 7-25 GLUCOSE 102 mg/dL H 65-100 SODIUM 137 mmol/L 135-145 POTASSIUM 4.7 mmol/L 3.5-5.0 CHLORIDE 101 mmol/L 100-110 CO2 28 meq/L 20-30 CALCIUM 9.7 mg/dL 8.5-10.2 CREATININE, Serum 0.74 mg/dL 0.50-1.40 eGFR(CKD-EPI 2020) >90 mL/min >60 Apr 22, 2024 07:55 AM [facility] CBC AND DIFF (AUTO) Specimen Type: BLOOD No comment entered. Ordering Provider: NAVA CASTRO Report Released Date/Time: Apr 29, 2023 10:22 AM Reporting Lab: [address] [place] [address] Performing Lab: [facility] [address] [address] WBC 5.94 10*3/uL 4.50-11.00 RBC 4.26 10*6/uL [...] 0.0 0.0-0.0 NRBC, ABS 0.00 10*3/uL 0.00-0.00 Vital Signs: All taken on the encounter date This section contains inpatient and outpatient Vital Signs collected on the date of the Encounter. Date/Time Temperature Pulse Blood Pressure Respiratory Rate SP02 Pain Height Weight Body Mass Index Source Apr 27, 2024 08:17 AM 129/[facility] Apr 27, 2024 07:50 AM 98.1 64 140/80 16 97 0 74 277 36 [facility] Social History: Smoking Status (Most current) and Tobacco Use (All prior to encounter date) This section includes the most current, and the historical, smoking and tobacco- related health factors from the CT facility where the Encounter took place. Current Smoking Status This section includes the most current smoking, or tobacco-related health factor, from the [place] facility where the Encounter took place. Date/Time Current Smoking Status Comment Corrina brock Apr 27, 2024 08:00 AM VA-TOBACCO USE MARELY RY DAY CIGARETTES CT [facility] Tobacco Use History This section includes a history of the smoking, or tobacco-related health factors, that were collected on or before the date of the Encounter. The data comes from the CT facility where the Encounter took place. Date/Time Smoking Status/Tobac co Use Comment [facility] Apr 27, 2024 08:00 AM VA-TOBACCO NEVER USED OTHER TYPE CT [facility] [place] [facility] Apr 27, 2024 08:00 AM VA-TOBACCO SCREEN FOLLOW-UP CT [facility] [place] [facility] Apr 27, 2024 08:00 AM VA-TOBACCO USE ADVICE [facility] [place] [facility] Apr 27, 2024 08:00 AM VA-TOBACCO USE TOP CLEANER NO CT [facility] [place] [facility] Apr 27, 2024 08:00 AM VA-TOBACCO USE EVERY DAY CIGARETTES CT [facility] [place] [facility] Apr 27, 2024 08:00 AM VA-TOBACCO USE MED YES [facility] [place] [facility] Apr 29, 2023 10:00 AM VA-TOBACCO USE 30 YEARS OR MORE [facility] [place] [facility] Apr 29, 2023 10:00 AM VA-TOBACCO USE ADVICE CT [facility] [place] [facility] Apr 29, 2023 10:00 AM VA-TOBACCO USE TOP CLEANER NO [facility] [place] [facility] Apr 29, 2023 10:00 AM VA-TOBACCO USE MED NO [facility] [place] [facility] Apr 29, 2023 10:00 AM VA-TOBACCO USE WI 30 MIN OF WAKEUP [facility] [place] [facility] Apr 29, 2023 10:00 AM VA-TOBACCO USER EVERY DAY [facility] [place] [facility] Jul 19, 2021 10:25 AM VA-TOBACCO DOESNT USE WI 30 MIN WAKEUP [facility] [place] [facility] Jul 19, 2021 10:25 AM VA-TOBACCO USE [address] [facility] [place] [facility] Jul 19, 2021 10:25 AM VA-TOBACCO USE ADVICE CT [facility] [place] [facility] Jul 19, 2021 10:25 AM VA-TOBACCO USE TOP CLEANER NO CT [facility] [place] [facility] Jul 19, 2021 10:25 AM VA-TOBACCO USE MED NO CT [facility] [place] [facility] Jul 19, 2021 10:25 AM VA-TOBACCO USER EVERY DAY CT [facility] [place] [facility] May 09, 2020 08:00 AM VA-TOBACCO FORMER USER CT [facility] [place] [facility] May 09, 2020 08:00 AM VA-TOBACCO QUIT < [address] [facility] [place] [facility] Mar 23, 2019 09:01 AM VA-TOBACCO FORMER USER CT [facility] [place] [facility] Mar 23, 2019 09:01 AM VA-TOBACCO QUIT 5 TO < [address] [facility] [place] [facility] Jan 19, 2018 08:24 AM VA-TOBACCO NEVER USED CT [facility] [place] [facility] Jan 17, 2017 08:30 AM QUIT TOBACCO USE > [address] [facility] [place] [facility] Jan 17, 2017 08:30 AM QUIT TOBACCO USE 1-[address] [facility] [place] [facility] Apr 19, 2016 01:06 PM QUIT TOBACCO USE 1-[address] [facility] [place] [facility] May 05, 2014 08:45 AM QUIT TOBACCO USE 1-7 YEARS AGO [facility] [place] [facility] Apr 08, 2013 08:46 AM QUIT TOBACCO USE 1-[address] [facility] [place] [facility] Jan 10, 2012 08:[address] [facility] [place] [facility] Jan 10, 2012 08:23 AM V1-PT DECLINES REF TO TOBACCO CESS PRGM CT [facility] [place] [facility] Jan 10, 2012 08:23 AM V1-PT DECLINES TOBACCO CESSATION MEDS CT [facility] [place] [facility] Jan 10, 2012 08:23 AM V1-PT THINKING ABOUT QUIT [facility]BACCO USE [facility] Apr 25, 2011 08:23 AM V1-PT DECLINES REF TO TOBACCO CESS PRGM [facility] Apr 25, 2011 08:23 AM V1-PT DECLINES TOBACCO CESSATION MEDS [facility] Apr 25, 2011 08:23 AM V1-PT THINKING ABOUT QUIT TOBACCO USE [facility] Aug 16, 2010 09:12 AM CURRENT SMOKER 1 pk per wk [facility] Aug 16, 2010 09:12 AM V1-PT DECLINES REF TO TOBACCO CESS PRGM [facility] Aug 16, 2010 09:12 AM V1-PT DECLINES TOBACCO CESSATION MEDS [facility] Aug 16, 2010 09:12 AM V1-PT NOT INTERESTED IN QUIT TOBACCO USE [facility] Dec 28, 2009 08:21 AM V1-PT DECLINES REF TO TOBACCO CESS PRGM [facility] Dec 28, 2009 08:21 AM V1-PT THINKING ABOUT QUIT TOBACCO USE [facility] Mar 20, 2009 10:53 AM V1-PT DECLINES REF TO TOBACCO CESS PRGM [facility] Mar 20, 2009 10:53 AM V1-PT DECLINES TOBACCO CESSATION MEDS [facility] Mar 20, 2009 10:53 AM V1-PT NOT INTERESTED IN QUIT TOBACCO USE [facility] Mar 13, 2009 09:37 AM CURRENT SMOKER just when he is drinking. He can't stand it otherwise. [facility] Advance Directives: All historical and current Section Date Range: From patient's date of to the date document was created. This section includes ALL of a patient's completed or amended CT Advance and Rescinded Directives. The entries below indicate that a directive exists for the patient, but an actual copy is not included with this document. The data comes from all CT facilities. Date Advance Directives Provider Source Jun 08, [address] CNT RL [facility] Encounter Notes: All associated encounter notes This section contains the clinical notes associated to the Encounter. Date/Time Encounter Note(s) Provider Source Apr 27, 2024 08:04 AM PHYSICIAN WOLF HUNTER NOTE: LOCAL TITLE: PA NOTE STANDARD TITLE: PHYSICIAN WOLF HUNTER NOTE DATE OF NOTE: APR 27, 2024@08:04 ENTRY DATE: APR 27, 2024@08:04:40 AUTHOR: BLAISE CASTRO COSIGNER: URGENCY: STATUS: COMPLETED CC/HPI/A/P: 68 year old MALE here in follow-up for; AAA, AF stopped Crestor due to hiVES decliens another statin, but will 'talk to Ingrid about' (after saying he won't try another one). FH of crc and phx of polyps, pending consult with GI, will send records. htn, at [facility] on acei ptsd, shares that he has been on NONVA Paxil for about 'six years, since [place] [facility] [place]. Review of systems: Patient reports no changes from [facility], in meds or any admissions. Active problems - Computerized Problem List is the source for the followin. Benign Neoplasm of Colon ([facility] [id number]) 2. Exposure to potentially hazardous substance ([facility] [id number]) Entered automatically through [facility] Problem List documentation program 3. AF- Atrial Fibrillation ([facility] [id number]) 4. Abdominal aortic aneurysm 3.0 to 5.5 centimeters in male 5. Family history of colorectal cancer 6. History of total hip arthroplasty Left THR, [facility]. 7. Hernia, Ventral 8. PTSD 9. Hand Injuries * 10. Counseling on Substance Use and Abuse 11. Alcohol Dependence 12. Hearing loss * 13. Tinnitus * 14. Obesity * 15. Sleep Apnea 16. Gastroesophageal Reflux Disorder * 17. Hypertension * 18. Urgency of urination SERVICE CONNECTED % - [...] DAILY FOR CHOLESTEROL Indication: FOR HIGH CHOLESTEROL Inactive Outpatient Medications Status 1) CARBOXYMETHYLCELLULOSE NA 0.5% OPH SOLN INSTILL 1 DROP INTO EACH EYE FOUR TIMES DAILY NEEDED Indication: FOR DRY EYE Active Non-VA Medications Status 1) Non-VA FISH OIL 500MG DHA/EPA CAP,ORAL BY MOUTH ACTIVE 2) Non-VA MULTIVITAMIN/MINERALS CAP/TAB 1 TABLET BY MOUTH EVERY ACTIVE DAY 3) Non-VA ROSUVASTATIN TAB BY MOUTH ACTIVE 4) Non-VA VITAMIN D3 (CHOLECALCIFEROL) TAB BY MOUTH ACTIVE 10 Total Medications 98.1 F [36.7 C] (04/27/2024 07:50) 64 (04/27/2024 07:50) 16 (04/27/2024 07:50) 140/80 (04/27/2024 07:50) 0 (04/27/2024 07:50) 74 in [188.0 cm] (04/27/2024 07:50) 277 lb [125.65 kg] (04/27/2024 07:50) BMI: 35.6 Neuro: Alert and oriented times three, grossly nonfocal, nasolabial folds intact. Recent labs reviewed with patient today:yes Advance Directive Screen MH AD: Patient has an Advance Directive on file at this [facility]. No updates are needed at this time. The patient received education about Advance Directives and written notification of his/her rights. Follow Up Colonoscopy: Colonoscopy is due based on information available to this reminder. Patient has arranged or is choosing to arrange a Colonoscopy independent of and w/out assistance from this CT. Tobacco Use Follow-Up: Patient was advised to stop smoking and/or using other tobacco products. Advised patient that a combination of behavioral counseling and FDA-approved cessation medications is the most effective way to ensure their success in stopping to smoke and/or using other tobacco products. The patient was not interested in additional information about behavioral counseling and other support strategies discussed. Informed patient that medications can help with cravings and withdrawal symptoms, and they greatly increase the chances of successfully stopping your tobacco use. The patient requested and was provided with a prescription for tobacco cessation medications. The patient does not use tobacco within 30 minutes of waking up. RHS Screen: RHS Screen Environmental Check Upon inquiry, the individual reports that the environment is safe to proceed. Informed Consent to Screen and Document The individual consents to proceed with screening. The individual consents to documentation of responses. PRIMARY SCREEN: In the past 12 months, how often did a current or former intimate partner (e.g., boyfriend, girlfriend, , , sexual partner): 1. Scream or curse at you Never 2. Insult or talk down to you Never 3. Threaten you with harm Never 4. Physically hurt you Never 5. Force or pressure you to have sexual contact against your will, or when you were unable to say no Never ?? The HITS tool (items 1-4 above) is US copyright protected by Wayne Lipscomb MD, and the user has full rights to use it throughout the CT system. PRIMARY SCREEN RESULT: The Primary Screen is NEGATIVE. The individual answered never to all forms of IPV above (i.e., answered never to all 5 items) The individual accepts education and/or resources: Other: EDUCATION: Other: /samir/ Blaise Castro PA-C STAFF PHYSICIAN WOLF HUNTER Signed: 04/27/2024 08:[address] [facility] [place] [facility] Apr 27, 2024 07:53 AM PREVENTIVE MEDICINE NURSING NOTE: LOCAL TITLE: CLINICAL REMINDERS/NURSING STANDARD TITLE: PREVENTIVE MEDICINE NURSING NOTE DATE OF NOTE: APR 27, 2024@07:53 ENTRY DATE: APR 27, 2024@07:53:23 AUTHOR: CAROLYNN GOMEZ COSIGNER: URGENCY: STATUS: COMPLETED Follow Up Colonoscopy: Colonoscopy is due based on information available to this reminder. A colonoscopy is currently scheduled or in process of being scheduled. Comment: [facility] Depression Screening: Perform PHQ-2 A PHQ-2 screen was performed. The score was 0 which is a negative screen for depression. Over the past two weeks, how often have you been bothered by the following problems? 1. Little interest or pleasure in doing things Not at all 2. Feeling down, depressed, or hopeless Not at all PTSD Screening: PC-PTSD-5 A PTSD screening test (PC-PTSD-5) was negative (score=0). IN THE PAST MONTH, have you ever had any experience that was so frightening, horrible or traumatic. For example: A serious accident or fire a physical or sexual assault or abuse An earthquake or flood A war Seeing someone be killed or seriously injured Having a loved one through homicide or suicide 1. Have you ever experienced this kind of event? NO 2. Had nightmares about the event(s) or thought about the event(s) when you did not want to? Response not required due to responses to other questions. 3. Tried hard not to think about the event(s) or went out of your way to avoid situations that reminded you of the event(s)? Response not required due to responses to other questions. 4. Been constantly on guard, watchful, or easily startled? Response not required due to responses to other questions. 5. [place] numb or detached from people, activities, or your surroundings? Response not required due to responses to other questions. 6. [place] guilty or unable to stop blaming yourself or others for the event(s) or any problems the event(s) may have caused? Response not required due to responses to other questions. Tobacco Use Screening: The patient smokes cigarettes every day. The patient states they have smoked for the following number of years: # of years: 50 Average number of packs/day over the entire time patient smoked: Packs/day: 0.25 The patient has never used other types of tobacco. COVID-19 Immunization: Alcohol Use Screen (AUDIT-C): Alcohol Screen: SCREEN [...] required due to responses to other questions. /samir/ CAROLYNN GOMEZ LPN Signed: 04/27/2024 07:56 [facility]
--- NOTE | 2024-05-13 08:23 | A.OFFVIS_ITS ---
Vital Signs 05/13/24 08:24 Height 6 ft 2 in Weight 273 lb 5.971 oz BMI 35.1 BP 120/64 Blood Pressure Location Rt brachial Position Sitting Pulse 78 Pulse Source Monitor Intake Visit Reasons: r/s 03/11/24 6 mos followup Resolution Rep Required: No Allergies morphine [MORPHINE] Allergy (Severe, Verified 05/13/24 08:27) severe aggitation sulfamethoxazole [From Bactrim] Adverse Reaction (Intermediate, Verified 05/13/24 08:27) anxiety trimethoprim [From Bactrim] Adverse Reaction (Intermediate, Verified 05/13/24 08:27) anxiety Medication List - Last Reconciled 05/13/24 by Vani Bonner FLIGHT TEST DATA ACQUISITION TECHNICIAN-C acetaminophen 650 mg (2 x 325 mg) PO Q6H PRN 30 days apixaban (Eliquis) 5 mg PO BID 90 days cane As directed [CPAP As directed, for sleep apnea] dronedarone (Multaq) 400 mg PO BID 90 days lisinopril 10 mg PO DAILY multivitamin 1 tab PO DAILY omeprazole 20 mg PO DAILY sertraline 150 mg (1.5 x 100 mg) PO QAM 90 days walker Folding Front wheeled walker life time- 99 days HPI HPI r/s 03/11/24 6 mos followup: Details: Marv is a 68-year-old male past medical history of hypertension, hyperlipidemia, sleep apnea with CPAP use, CAD, mild aortic stenosis, paroxysmal atrial fibrillation, dilated ascending aorta who presents for follow-up after recent echocardiogram. Today he reports he has been feeling well since his last visit in August 2023. He has not had any exertional chest discomfort. At times he will get a localized discomfort in the left chest area that he says goes away when he presses on his abdomen. He believes it is a gas bubble. No shortness of breath, PND, orthopnea or edema. No heart palpitations, lightheadedness. He has been working out in the gym routinely doing light lifting and cardio. This past year he had bilateral knee surgeries without any known cardiac complication. He tells me his was recently diagnosed with ovarian cancer and is undergoing treatment. He is taking all his meds as directed and denies any bleeding issues. [facility] Medical History Arthritis On anticoagulant therapy Murmur Routine medical exam Major depression, recurrent, chronic Skin cancer CAD (coronary artery disease) Hypertension Hyperlipemia PAF (paroxysmal atrial fibrillation) History of cardioversion Hx of skin cancer, basal cell PTSD (post-traumatic stress disorder) BPH (benign prostatic hyperplasia) AAA (abdominal aortic aneurysm) Anxiety and depression Anemia Diverticulosis GERD (gastroesophageal reflux disease) Sleep apnea Surgical History History of total right knee replacement Status post lumbar microdiscectomy Hx of blepharoplasty History of prostate surgery H/O vein stripping (~06/08/21) Hx of arthroscopy of left knee Hx of cardiac catheterization H/O umbilical hernia repair History of incision and drainage Hx of tonsillectomy History of esophagogastroduodenoscopy (EGD) History of cardiac radiofrequency ablation Hx of colonoscopy Hx of right knee surgery History of total left hip arthroplasty Family History Father Esophageal cancer Mother Esophageal cancer Social History Household Members: Family Housing: House Are you a primary eye care professional to a significant other at home: No Do you presently have visiting nurse or other home services: No Alcohol intake: former Comment: All counts correct Patient Tobacco Use Status: Current someday Tobacco user Tobacco use type: Cigarette Cigarettes Per Day: 2 Years Smoked: 25 e-Cigarette/Vaping Use: Never Used Second Hand Smoke Exposure: No Substance Use Type: Marijuana Advance Directives Date on File: 04/27/12 service: No Current occupational status: retired Cognitive needs: No Hearing needs: No Vision needs: No Review of Systems Const All systems reviewed & are unremarkable except as noted in HPI and below ENT Denies dizziness Card Denies chest pain, Denies chest pain at rest, Denies chest pain with activity, Denies rapid heart rate, Denies pedal edema, Denies edema, Denies leg edema, Denies lightheadedness, Denies palpitations, Denies dyspnea, Denies dyspnea on exertion and Denies orthopnea Resp Denies cough, Denies dyspnea and Denies dyspnea on exertion GI Denies hematochezia and Denies change in stool character Musc Denies abnormal gait, Denies limited range of motion, Denies muscle cramps, Denies muscle weakness, Denies numbness, Denies radiating pain into limb, Denies stiffness and Denies tingling Neuro Denies abnormal gait, Denies dizziness, Denies numbness and Denies tingling Endo Denies palpitations Physical Exam Vital Signs: Last Vital Signs Pulse 78 05/13/24 08:24 BP 120/64 05/13/24 08:24 BMI result Body Mass Index 35.1 Const General: cooperative, healthy appearing, comfortable and no acute distress Orientation/consciousness: patient oriented x3 Neck Neck: Yes normal visual inspection and Yes no JVD Resp Effort & Inspection: normal respiratory effort Auscultation: clear to auscultation bilaterally, no rales, no rhonchi and no wheezes Cardio Rate: regular rate Rhythm: regular rhythm Heart sounds: S1 normal heart sound present, S2 normal heart sound present, no gallops, no murmurs and no rubs Neuro General: patient oriented x3 Extrem General: Yes normal to inspection, No no pedal edema and No calf tenderness Psych Appearance: grossly normal Mental Status: mental status grossly normal Speech and movement: Normal speech and movement present Office Procedures EKG Details: Today, read by me, normal sinus rhythm, rate 78, QTC 417 milliseconds [id number], Complete Assessment & Plan Assessment & Plan (1) PAF (paroxysmal atrial fibrillation): Comment: eliquis, s/p ablation Code(s): I48.0 - Paroxysmal atrial fibrillation Category: Medical Plan: History of PAF, currently suppressed with use of Multaq. EKG done today shows normal sinus rhythm, rate 78, QTC 417 milliseconds. He is on Eliquis for anticoagulation. Labs 10/24/2023 showed creatinine 0.81. Continue current med management. Biannual renal function recommended. Cardiology follow-up with EKG in 6 months, sooner if needed. (2) CAD (coronary artery disease): Comment: sees Dr Schuster last visit 08/21/2023 Code(s): I25.10 - Atherosclerotic heart disease of [place] coronary artery without angina pectoris Category: Medical Plan: Notes indicate history of CAD. Nuclear stress test 03/18/2022 shows likely normal myocardial perfusion imaging. No anginal sounding symptoms. EKG today is nonischemic. Recent echo shows EF greater than 70%, no regional wall motion abnormality. Continue risk factor modification. Signs and symptoms of angina reviewed with him. (3) Asymmetric septal hypertrophy: Code(s): I51.7 - Cardiomegaly Category: Medical Plan: Echocardiogram 02/23/24 shows severe septal hypertrophy. Prior echo 01/14/2023 shows probable basal septal hypertrophy. Blood pressure has been well controlled. He has been compliant with his CPAP mask. Will check a cardiac MRI for further evaluation. He is agreeable to this plan. (4) Aortic stenosis: Code(s): I35.0 - Nonrheumatic aortic (valve) stenosis Category: Medical Plan: Recent echo shows moderate calcification of the aortic valve, mild aortic stenosis. Continue rosuvastatin. Will follow with echo in 1 yr. (5) Thoracic aortic aneurysm: Code(s): I71.20 - Thoracic aortic aneurysm, without rupture, unspecified Category: Medical Plan: Ascending aorta measuring 4.2 cm. No significant change from prior. Repeat echo in 1 year (6) Hypertension: Code(s): I10 - Essential (primary) hypertension Category: Medical Plan: Well controlled at this time. Continue lisinopril. Plan Time spent on chart review, documentation, interview, assessment Orders: Orders CA echo transthoracic complete 11 Months I35.0 - Nonrheumatic aortic (valve) stenosis, I51.7 - Cardiomegaly, I71.20 - Thoracic aortic aneurysm, without rupture, unspecified MR cardiac morph fnct w con Today I51.7 - Cardiomegaly Basic Metabolic Panel Today I51.7 - Cardiomegaly Medications: Refilled rosuvastatin 20 mg PO DAILY 90 tabs 3RF Coding Level of Care Code Est Pt Level 4 (33785) Complex EM visit Add On G2211 Diagnoses PAF (paroxysmal atrial fibrillation) I48.0 CAD (coronary artery disease) I25.10 Asymmetric septal hypertrophy I51.7 Aortic stenosis I35.0 Thoracic aortic aneurysm I71.20 Hypertension I10 CPT Codes EKG - CPT: 10677-[id number], Complete ([id number]) Time Spent (min) 30
[2024-05-13 08:24] VITALS: BP 120/64; PULSE 78; BMI 35.1
== END 2024-05-13 09:02 | disposition home or self-care (01) ==
LOC: HO.HCS 08:16
PROVIDERS: PCP Nurse Practitioner Family; Visit Provider Internal Medicine Cardiovascular Disease
DX: I48.0 Paroxysmal atrial fibrillation (principal); I25.10 Atherosclerotic heart disease of native coronary artery without angina pectoris; I51.7 Cardiomegaly; I35.0 Nonrheumatic aortic (valve) stenosis; I71.20 Thoracic aortic aneurysm, without rupture, unspecified; I10 Essential (primary) hypertension
CPT/HCPCS: 99214; G2211

== ENCOUNTER → 2024-05-13 08:15 | Outpatient (BNVA) | payer MEDICARE, SELFPAY | PROVIDERS: PCP Nurse Practitioner Family; Visit Provider Internal Medicine Cardiovascular Disease | DX: I10 Essential (primary) hypertension (principal); I48.0 Paroxysmal atrial fibrillation; I25.10 Atherosclerotic heart disease of native coronary artery without angina pectoris; I35.0 Nonrheumatic aortic (valve) stenosis; E78.5 Hyperlipidemia, unspecified; I51.7 Cardiomegaly; I71.20 Thoracic aortic aneurysm, without rupture, unspecified; Z99.89 Dependence on other enabling machines and devices | CPT/HCPCS: 93005; 99212 ==

== ENCOUNTER 2024-06-08 08:02 | Outpatient (AMB) | payer MEDICARE, SELFPAY ==
[2024-06-08 08:05] VITALS: BP 130/74; PULSE 75; O2SAT 98; BMI 34.9
--- NOTE | 2024-06-08 08:05 | A.OFFPC_ITS ---
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: No Accompanied by: Self / Same As Patient Allergies morphine [MORPHINE] Allergy (Severe, Verified 06/08/24 08:34) severe aggitation sulfamethoxazole [From Bactrim] Adverse Reaction (Intermediate, Verified 06/08/24 08:34) anxiety trimethoprim [From Bactrim] Adverse Reaction (Intermediate, Verified 06/08/24 08:34) anxiety Medication List - Last Reconciled 06/08/24 by LAUREANO Carlisle acetaminophen 650 mg (2 x 325 mg) PO Q6H PRN 30 days apixaban (Eliquis) 5 mg PO BID 90 days cane As directed [CPAP As directed, for sleep apnea] dronedarone (Multaq) 400 mg PO BID 90 days lisinopril 10 mg PO DAILY multivitamin 1 tab PO DAILY omeprazole 20 mg PO DAILY sertraline 150 mg (1.5 x 100 mg) PO QAM 90 days walker Folding Front wheeled walker life time- 99 days Tobacco use date assessed: 06/08/24 Fall risk assessment: No Falls in past year Last assessed Fall Risk: 06/08/24 Dental Screening Dental Screen Date: 06/08/24 Did you have a dental visit in the last 12 months?: Yes Did you have a dental problem in the last 6 months where you did not have access to dental care?: No Was dental information given to patient?: Patient has dentist HPI 6 months f/up HPI Details Chief Complaint Follow-up management for hypertension and dyslipidemia History of Present Illness The patient is a 68-year-old male presenting with a follow-up for hypertension and dyslipidemia. He is actively engaging in physical exercise at the gym and maintaining an active lifestyle outdoors. He has become more mindful of his dietary habits, which has resulted in weight loss, contributing to his overall sense of improved wellbeing. He reports the occurrence of episodic joint pain, which he manages by recognizing and respecting his activity limitations. He denies associated symptoms such as chest pain, dyspnea, dizziness, or blurred vision, which indicates a stable condition with no current acute concerns related to his chronic conditions. Observationally, no edema is present, and while extensive varicose veins are noted, they do not appear to cause significant functional impairment at present. The patient has a history of aortic stenosis and a systolic murmur that require monitoring but no acute actions have been indicated based on the visit. He remains under the continued care and follow-up across several specialties, reflecting comprehensive management for his conditions. Social History - Engages in regular physical activity, attending the gym. - Actively participates in outdoor activ ities. - Conscious of dietary habits and is los ing weight. Health Maintenance - Ongoing physical activity and weight m anagement - Dietary modifications - Regular follow-ups with cardiology, ur ology, dermatology, vascular specialist, and orthopedics Review of Systems - Cardiovascular: Denies chest pain or s hortness of breath. - Neurological: Denies dizziness or blur red vision. - Musculoskeletal: Reports episodic join t aches. - Peripheral Vascular: Reports extensive varicose veins without edema. Physical Exam General: Cooperative, healthy appearing, comfortable, no acute distress and well developed Orientation: Patient oriented x3 Limitations: No limitations Head: Normal to inspection Ears: Hearing grossly normal bilaterally Nose: Normal external nose present Face and sinus: Normal facial exam Eyes: Appearance normal, both eyes and all related structures Neck: Normal visual inspection and Yes full ROM Respiratory: Normal respiratory effort and able to speak in complete sentences. Clear to auscultation bilaterally Cardiovascular: Systolic murmur. Regular rate and rhythm. Normal S1 and S2 GI: Normal to inspection. Soft to palpation and nontender Skin: No rashes or lesions noted Neuro: Patient oriented x3 Extremities: Extensive varicose veins to bilaterally lower extremities. Normal to inspection Results Plan The patient?s hypertension and dyslipidemia management will continue with current medications, given effective control of his conditions and absence of exacerbated symptoms. Conservative non-pharmacological strategies effectively address articular pain, with the patient employing activity adjustments. Aneurysmal stenosis and a systolic murmur require continued follow-up care with cardiology to monitor potential changes. The patient?s active lifestyle, dietary improvements, and weight loss are integral to ongoing cardiovascular risk reduction. Continued care involves maintaining routine appointments with specialists in relevant areas to ensure comprehensive chronic disease management. Discussion Notes During the consultation, I emphasized the stability of the patient's hypertension and dyslipidemia under current medication regimens, with potential risks and benefits discussed. We reviewed conservative management strategies for joint pain, and the patient's effective use of lifestyle modifications was commended. The existence of extensive varicose veins was noted, with current management plans deemed satisfactory given the absence of significant symptoms. I reiterated the importance of routine follow-ups in cardiology due to the noted aneurysmal stenosis and systolic murmur, ensuring continued surveillance. Anticipatory guidance was provided concerning lifestyle habits, emphasizing weight management and regular exercise. Patient Instructions - Continue current medications as prescr ibed. - Maintain regular exercise regimen and dietary vigilance. - Monitor for any new symptoms like ches t pain or significant dizziness. - Follow up regularly with all specialis ts as per scheduled appointments. - Seek medical attention if any acute ch anges or concerns arise. [facility] Medical History Arthritis On anticoagulant therapy Murmur Routine medical exam Major depression, recurrent, chronic Skin cancer CAD (coronary artery disease) Hypertension Hyperlipemia PAF (paroxysmal atrial fibrillation) History of cardioversion Hx of skin cancer, basal cell PTSD (post-traumatic stress disorder) BPH (benign prostatic hyperplasia) AAA (abdominal aortic aneurysm) Anxiety and depression Anemia Diverticulosis GERD (gastroesophageal reflux disease) Sleep apnea Surgical History History of total right knee replacement Status post lumbar microdiscectomy Hx of blepharoplasty History of prostate surgery H/O vein stripping (~06/08/21) Hx of arthroscopy of left knee Hx of cardiac catheterization H/O umbilical hernia repair History of incision and drainage Hx of tonsillectomy History of esophagogastroduodenoscopy (EGD) History of cardiac radiofrequency ablation Hx of colonoscopy Hx of right knee surgery History of total left hip arthroplasty Family History Father Esophageal cancer Mother Esophageal cancer Social History Household Members: Family Housing: House Are you a primary ocular care technologist to a significant other at home: No Do you presently have visiting nurse or other home services: No Alcohol intake: former Comment: All counts correct Patient Tobacco Use Status: Current someday Tobacco user Tobacco use type: Cigarette Cigarettes Per Day: 2 Years Smoked: 25 e-Cigarette/Vaping Use: Never Used Second Hand Smoke Exposure: No Substance Use Type: Marijuana Advance Directives Date on File: 04/27/12 service: No Current occupational status: retired Cognitive needs: No Hearing needs: No Vision needs: No Questionnaire PHQ-9 Over the last 2 weeks, how often have you been bothered by any of the following problems? 1. Little interest or pleasure in doing things: not at all 2. Feeling down, depressed, or hopeless: not at all 3. Trouble falling or staying asleep, or sleeping too much: not at all 4. Feeling tired or having little energy: more than half the days 5. Poor appetite or overeating: several days 6. Feeling bad about yourself - or that you are a failure or have let yourself or your family down: not at all 7. Trouble concentrating on things, such as reading the newspaper or watching television: not at all 8. Moving or speaking so slowly that other people could have noticed. Or the opposite - being so fidgety or restless that you have been moving around a lot more than usual: not at all 9. Thoughts that you would be better off or of hurting yourself in some way: not at all Total score: 3 Depression Screening Interpretation: Negative Depression Screening Done: Yes 92869 - PHQ-9 Billing: Yes Source: Developed by Drs. Gamaliel Good, Yolanda Martinez, Jacob Johnston and colleagues, with an educational marvel from [employer]. Thrive Questionnaire Date Thrive assessed: 06/08/24 I am a: Patient What is your living situation today?: I choose not to answer this question Within the past 12 months, did the food you bought not last and you didn't have the money to get more?: I choose not to answer this question Within the past 12 months, did you worry whether your food would run out before you got money to buy more?: I choose not to answer this question Do you have trouble paying for medicines?: I choose not to answer this question Do you have trouble getting transportation to medical appointments?: I choose not to answer this question Do you have trouble paying your heating and electricity bill?: I choose not to answer this question Do you have trouble taking care of your child, family member or friend?: I choose not to answer this question Do you have trouble with day-to-day activities such as bathing, preparing meals, shopping, managing finances, etc.?: I choose not to answer this question Are you currently unemployed and looking for a job?: I choose not to answer this question Are you interested in more education?: I choose not to answer this question Please select the resources that you would like help with: None Currently or been in a relationship where the following occur: I choose not to answer THRIVE Score: 0 AUDIT C Alcohol Use Questionnaire (AUDIT-C) 1. How often do you have a drink containing alcohol?: Never 3. How often do you have six or more drinks on one occasion?: Never Total Score: 0 Score Reviewed/Action Taken: Yes DANIEL-7 AMB Questionnaire DANIEL-7 Date DANIEL - 7 assessed: 06/08/24 Feeling nervous, anxious, or on edge: 0 = Not at all Not being able to stop or control worryin = Not at all Worrying too much about different things: 0 = Not at all Trouble relaxin = Not at all Being so restless that it is hard to sit still: 0 = Not at all Becoming easily annoyed or irritable: 0 = Not at all Feeling afraid as if something awful might happen: 0 = Not at all Total DANIEL-7 score (0-4 normal; 5-9 mild; 10-14 moderate; 15-21 severe): 0 Source: Developed by Drs. Gamaliel Good, Yolanda Martinez, Jacob Johnston and colleagues, with an educational marvel from [employer]. DANIEL-7 Assessment Billing DANIEL-7 Assessment Tool: DANIEL-7 Assessment 56793 Physical exam (Primary Care) Vital Signs: Last Vital Signs Pulse 75 06/08/24 08:05 BP 130/74 06/08/24 08:05 Pulse Ox 98 06/08/24 08:05 Oxygen Delivery Method Room Air 06/08/24 08:05 BMI result Body Mass Index 34.9 Tobacco/Smoking Status: Tobacco use Status Tobacco use date assessed 06/08/24 06/08/24 08:10 Patient Tobacco Use Status Current someday Tobacco 06/08/24 08:10 Tobacco use type Cigarette 06/08/24 08:10 e-Cigarette/Vaping Use Never Used 06/08/24 08:10 PHQ-9: PHQ-9 Score PHQ-9: Total score 3 06/08/24 08:10 Depression Screening Interpretation: Negative Thrive Assessment: Date of Thrive Assessment Date Thrive assessed 06/08/24 06/08/24 08:10 Currently or been in a relationship where the following occur: I choose not to answer Coding Level of Care Code Est Pt Level 3 (52260) Diagnoses Hypertension I10 Additional Codes DANIEL-7 Assessment Billing - DANIEL-7 Assessment Tool: DANIEL-7 Assessment 76807 ([id number]) PHQ-9 - 34148 - PHQ-9 Billing: Yes ([id number]) Assessment & Plan Assessment & Plan (1) Hypertension: Code(s): I10 - Essential (primary) hypertension Category: Medical Plan . Orders: Orders Comprehensive [place]. Panel Fast Today I10 - Essential (primary) hypertension TSH reflex Free T4 Today I10 - Essential (primary) hypertension UA CC w/rflx Micro + Cult Today I10 - Essential (primary) hypertension Lipid Panel Today I10 - Essential (primary) hypertension Complete Blood Count Auto Diff Today I10 - Essential (primary) hypertension
--- OUTSIDE RECORDS SUMMARY | 2024-06-08 08:09 | XMS_ITS | Encounter Summary ---
Author Organization [facility] Address [address] [place] [address] Care Team Providers Care Glue Plant Operator Name Role Phone Wayne Huston MD Primary Care Provider [phone] Encounter Details Date Type Department Care Team (Late st Contact Info) Description 05/04/2024 Lab Requisition [facility] - Main Lab [address] [facility] [place] [id number] Michael Mullins, PA [address] [place], [place] [id number] Urinary tract infection, site not specified Social [...] Escherichia coli(A) JOSSY 05/06/2024 11:09 AM EDT [facility] Urine Urine specimen obtained [...] Escherichia coli Trimethoprim/Sulfamethoxazole JOSSY <=20 ug/ml: Susceptible [facility] MICROBIOLOGY - GENERAL SVETA AWA Final Result [facility] [address] [place] [address], documented in this encounter Visit Diagnoses Diagnosis Urinary tract infection, site not specified documented in this encounter Care Teams Glue Plant Operator Relationship Specialty Start Date End Date Wayne Huston MD [address] [place] [address] Dr [address] [place] [address] PCP - General Internal Medicine 02/10/11 documented as of this encounter
--- OUTSIDE RECORDS SUMMARY | 2024-06-08 08:09 | XMS_ITS | Continuity of Care Document ---
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 It does not include entries that were removed or entered in error. Problem Status Onset Date Problem Type Date of Resolution Comments Source History of total hip arthroplasty Active 016 Condition Apr 19, 2016 Entered By: STORM MARTINEZ AM Comment: Left THR, [place] 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 [facility] Counseling on Substance Use and Abuse (ICD-9-CM V65.42) Active Condition [facility] Exposure to potentially hazardous substance (SCT 056783903703045) Active Condition May 20 4 Entered By: [...] Hypertension * (ICD-9-CM 401.9) [facility] [place] [facility] Obesity * (ICD-9-CM 278.00) Active [facility] [place] [facility] PTSD Active [facility] [place] Sleep Apnea (ICD-9-CM 780.57/786.09) Active [facility] [place] [facility] Tinnitus * (ICD-9-CM 388.30) [facility] [place] [facility] Urgency of urination (ICD-9-CM 788.63) Active [facility] [place] [facility] Acute congestive heart failure Inactive Condition 09/06/2013 Sep 06, 2013 Entered By: STORM MARTINEZ AM Comment: one episode with onset of afib, since ablated. [facility] [place] [facility] Diagnosis: ICD-10-CM D12.6 Benign neoplasm of colon, unspecified Active Diagnosis [facility] [place] [facility] Diagnosis: ICD-10-CM I48.91 Unspecified atrial fibrillation Active [facility] [place] [facility] Diagnosis: ICD-10-CM L71.8 Other rosacea Active Diagnosis [facility] [place] [facility] Diagnosis: ICD-10-CM Z77.29 Contact with and exposure to other hazardous substances Active Diagnosis [facility] [place] [facility] Diagnosis: ICD-10-CM K03.6 Deposits [accretions] on teeth Active Diagnosis [facility] [place] [facility] Diagnosis: ICD-10-CM Z46.0 Encounter for fit/adjst of spectacles and contact lenses Active [facility] Medications Combined list of outpatient [...] PRIOR TO DENTAL APPOINTM ENT ORAL 05/25/2023 [id number] SMITH ALVAREZ 2023 20 [facility] APIXABAN 5MG TAB TAKE ONE TABLET BY MOUTH TWICE DAILY ORAL ACTIVE 02/19/2025 [id number] BLAISE MARTINEZ 2024 180 [facility] APIXABAN 5MG TAB TAKE ONE TABLET BY MOUTH TWICE DAILY ORAL DISCONT INUED 11/20/2023 [id number] 4 BLAISE MARTINEZ 2022 180 [facility] CARBOXYMETH YLCELLULOSE NA 0.5% SOLN,OPH INSTILL 1 DROP INTO EACH EYE FOUR TIMES DAILY NEEDED FOR DRY EYE OPHTHA LMIC 04/17/2024 [id number] Cresencio ALAN 2023 45 [facility] [place] DRONEDARONE 400MG TAB TAKE ONE TABLET BY MOUTH TWICE DAILY ORAL ACTIVE 10/30/2024 [id number] BLAISE MARTINEZ 2023 180 [facility] [place] DRONEDARONE 400MG TAB TAKE ONE TABLET BY MOUTH TWICE DAILY ORAL DISCONT INUED 10/21/2023 [id number] RA JAMES HENRIQUEZ 2022 180 [facility] LISINOPRIL 10MG TAB TAKE ONE TABLET BY MOUTH ONCE DAILY TO CONTROL BLOOD PRESSURE ORAL ACTIVE 10/30/2024 [id number] 5 BLAISE MARTINEZ 2023 90 [facility] LISINOPRIL 10MG TAB TAKE ONE TABLET BY MOUTH ONCE DAILY TO CONTROL BLOOD PRESSURE ORAL DISCONT INUED 10/21/2023 [id number] RA JAMES HENRIQUEZ 2022 90 [facility] MAGNESIUM OXIDE TAB TAKE BY MOUTH ORAL ACTIVE BLAISE MARTINEZ 2024 [facility] MULTIVITAMI NS W/MINERALS TAB TAKE ONE TABLET BY MOUTH EVERY DAY ORAL ACTIVE CANDY GRIGSBY NNE O 2009 [facility] NICOTINE POLACRILEX 2MG TAB,CHEWG GUM CHEW 1 PIECE BY MOUTH EVERY 2 HOURS NEEDED FOR NICOTINE REPLACEM ENT ORAL ACTIVE 04/28/2025 [id number] MICHELLEBLAISE Antoine 2024 110 [facility] [place] [facility] OMEPRAZOLE 20MG CAP,EC TAKE ONE CAPSULE BY MOUTH EVERY DAY ORAL ACTIVE 10/30/2024 [id number] BLAISE MARTINEZ 2023 90 [facility] [place] [facility] OMEPRAZOLE 20MG CAP,EC TAKE ONE CAPSULE BY MOUTH EVERY DAY ORAL DISCONT INUED 10/21/2023 [id number] RA JAMES HENRIQUEZ 2022 90 [facility] ROSUVASTATI N CA 40MG TAB TAKE ONE-HALF TABLET BY MOUTH ONCE DAILY FOR CHOLESTE ROL ORAL DISCONT INUED BY PROVIDE R 09/18/2024 [id number] BLAISE MARTINEZ 2023 45 [facility] SERTRALINE HCL 100MG TAB TAKE 1.5 TABLETS BY MOUTH ONCE DAILY ORAL ACTIVE BLAISE MARTINEZ 2024 [facility] [place] [facility] Allergies, Adverse Reactions, Alerts Combined list of allergies from Department of Defense and Veterans Affairs facilities. It does not include entries that were removed or entered in error. Substance Category Reaction Severity Reaction type Status Date Reported Comments Source CODEINE Propensity to adverse reactions to drug (finding) active 1 [facility] MORPHINE Propensity to adverse reactions to drug (finding) active 1 [facility] ROSUVASTATIN Propensity to adverse reactions to drug (finding) Itching MODERATE active 5 [facility] Immunizations Combined list of available immunizations from the Department of Defense and Veterans Affairs facilities. Immunization Series Date Given Administered By Site Reaction Lot Number CVX Code Drug Online Advertising Analyst Status Comments Source INFLUENZA, UNSPECIFIED FORMULATION 2022 88 complet ed Booster for Series, HISTORICA L INFORMATI ON - FROM OTHER PROVIDER, [facility] PNEUMOCOCCAL CONJUGATE PCV20, POLYSACCHARID E [id number] CONJUGATE, ADJUVANT, PF 2021 216 complet ed [...] DOSE 2 2020 207 complet ed MOD; [id number]; 1 [facility] COVID-19 (MODERNA), MRNA, LNP-S, PF, 100 MCG/0.5 ML DOSE 1 2020 207 complet ed MOD; [id number]; 1 [facility] [...] Apr 29, 2023 10:22 AM Reporting Lab: [facility] [place] [facility] [address] [facility] [address] Performing Lab: [facility] [place] [facility] [address] [facility] [address] [address] [place] [facility] LIPID PANEL FASTING TRIGLYCERID E [MASS/VOLUM E] IN SERUM OR PLASMA 107 mg/dL 0 - 150 04/22 Specimen Type: SERUM No comment entered. Ordering Provider: Bo MARTINEZ Report Released Date/Time: Apr 29, 2023 10:22 AM Reporting Lab: [facility] [place] [place] [facility] [address] [facility] [address] Performing Lab: [facility] [place] [facility] [address] [facility] [address] [facility] [place] [facility] LIPID PANEL FASTING CHOLESTEROL IN LDL [MASS/VOLUM E] IN SERUM OR PLASMA BY CALCULATION 68 mg/dL 0 - 129 04/22 Specimen Type: SERUM No comment entered. Ordering Provider: Bo MARTINEZ Report Released Date/Time: Apr 29, 2023 10:22 AM Reporting Lab: [facility] [place] [facility] [address] [facility] [address] Performing Lab: [facility] [place] [facility] [address] [facility] [address] [facility] [place] [facility] LIPID PANEL FASTING CHOLESTEROL .TOTAL/CHOL ESTEROL IN HDL [MASS RATIO] IN SERUM OR PLASMA 2.8 04/22 Specimen Type: SERUM No comment entered. Ordering Provider: Bo MARTINEZ Report Released Date/Time: Apr 29, 2023 10:22 AM Reporting Lab: [facility] [place] [facility] [address] [facility] [address] Performing Lab: [facility] [place] [facility] [address] [facility] [address] [facility] [place] [facility] LIPID PANEL FASTING CHOLESTEROL IN HDL [MASS/VOLUM E] IN SERUM OR PLASMA 50 mg/dL 40 - 60 04/22 Specimen Type: SERUM No comment entered. Ordering Provider: Bo MARTINEZ Report Released Date/Time: Apr 29, 2023 10:22 AM Reporting Lab: [facility] [place] [facility] [address] [facility] [address] Performing Lab: [facility] [place] [facility] [address] [facility] [address] [facility] [place] [facility] LIVER FUNCTION PROTEIN [MASS/VOLUM E] IN SERUM OR PLASMA 7.7 g/dL 6.0 - 8.3 04/22 Specimen Type: SERUM No comment entered. Ordering Provider: Bo MARTINEZ Report Released Date/Time: Apr 29, 2023 10:22 AM Reporting Lab: [facility] [place] [facility] [address] [facility] [address] Performing Lab: [facility] [place] [facility] [address] [facility] [address] [facility] [place] [facility] LIVER FUNCTION ALBUMIN [MASS/VOLUM E] IN SERUM OR PLASMA 3.9 g/dL 3.5 - 5.0 04/22 Specimen Type: SERUM No comment entered. Ordering Provider: Bo MARTINEZ Report Released Date/Time: Apr 29, 2023 10:22 AM Reporting Lab: [facility] [place] [facility] [address] [facility] [address] Performing Lab: [facility] [place] [facility] [address] [facility] [address] [facility] [place] [facility] LIVER FUNCTION ALKALINE PHOSPHATASE [ENZYMATIC ACTIVITY/VO LUME] IN SERUM OR PLASMA 78 U/L 40 - 150 04/22 Specimen Type: SERUM No comment entered. Ordering Provider: Bo MARTINEZ Report Released Date/Time: Apr 29, 2023 10:22 AM Reporting Lab: [facility] [place] [facility] [address] [facility] [address] Performing Lab: [facility] [place] [facility] [address] [facility] [address] [facility] [place] [facility] LIVER FUNCTION ASPARTATE AMINOTRANSF ERASE [ENZYMATIC ACTIVITY/VO LUME] IN SERUM OR PLASMA 18 U/L 5 - 34 04/22 Specimen Type: SERUM No comment entered. Ordering Provider: Bo MARTINEZ Report Released Date/Time: Apr 29, 2023 10:22 AM Reporting Lab: [facility] [place] [facility] [address] [facility] [address] Performing Lab: [facility] [place] [facility] [address] [facility] [address] [facility] [place] [facility] LIVER FUNCTION ALANINE AMINOTRANSF ERASE [ENZYMATIC ACTIVITY/VO LUME] IN SERUM OR PLASMA 17 U/L 04/22 Specimen Type: SERUM No comment entered. Ordering Provider: Bo MARTINEZ Report Released Date/Time: Apr 29, 2023 10:22 AM Reporting Lab: [facility] [place] [facility] [address] [facility] [address] Performing Lab: [facility] [place] [facility] [address] [facility] [address] [facility] [place] [facility] LIVER FUNCTION BILIRUBIN.T OTAL [MASS/VOLUM E] IN SERUM OR PLASMA 0.4 mg/dL 0.2 - 1.2 04/22 Specimen Type: SERUM No comment entered. Ordering Provider: Bo MARTINEZ Report Released Date/Time: Apr 29, 2023 10:22 AM Reporting Lab: [facility] [place] [facility] [address] [facility] [address] Performing Lab: [facility] [place] [facility] [address] [facility] [address] [facility] [place] [facility] BASIC METABOLIC PANEL (fasting) UREA NITROGEN [MASS/VOLUM E] IN SERUM OR PLASMA 12 mg/dL 7 - 25 04/22 Specimen Type: SERUM No comment entered. Ordering Provider: Bo MARTINEZ Report Released Date/Time: Apr 29, 2023 10:22 AM Reporting Lab: [facility] [place] [facility] [address] [facility] [address] Performing Lab: [facility] [place] [facility] [address] [facility] [address] [facility] [place] [facility] BASIC METABOLIC PANEL (fasting) GLUCOSE [MASS/VOLUM E] IN SERUM OR PLASMA 102 mg/dL 65 - 100 04/22 H Specimen Type: SERUM No comment entered. Ordering Provider: Bo MARTINEZ Report Released Date/Time: Apr 29, 2023 10:22 AM Reporting Lab: [facility] [place] [facility] [address] [facility] [address] Performing Lab: [facility] [place] [facility] [address] [facility] [address] [facility] [place] [facility] BASIC METABOLIC PANEL (fasting) SODIUM [MOLES/VOLU ME] IN SERUM OR PLASMA 137 mmol/L 135 - 145 04/22 Specimen Type: SERUM No comment entered. Ordering Provider: Bo MARTINEZ Report Released Date/Time: Apr 29, 2023 10:22 AM Reporting Lab: [facility] [place] [facility] [address] [facility] [address] Performing Lab: [facility] [place] [facility] [address] [facility] [address] [facility] [place] [facility] BASIC METABOLIC PANEL (fasting) POTASSIUM [MOLES/VOLU ME] IN SERUM OR PLASMA 4.7 mmol/L 3.5 - 5.0 04/22 Specimen Type: SERUM No comment entered. Ordering Provider: Bo MARTINEZ Report Released Date/Time: Apr 29, 2023 10:22 AM Reporting Lab: [facility] [place] [facility] [address] [facility] [address] Performing Lab: [facility] [address] [address] [address] [place] [facility] BASIC METABOLIC PANEL (fasting) CHLORIDE [MOLES/VOLU ME] IN SERUM OR PLASMA 101 mmol/L 100 - 110 04/22 Specimen Type: SERUM No comment entered. Ordering Provider: Bo MARTINEZ Report Released Date/Time: Apr 29, 2023 10:22 AM Reporting Lab: [facility] [place] [address] [address] Performing Lab: [facility] [place] [address] [address] [address] [facility] BASIC METABOLIC PANEL (fasting) CARBON DIOXIDE, TOTAL [MOLES/VOLU ME] IN SERUM OR PLASMA 28 meq/L 20 - 30 04/22 Specimen Type: SERUM No comment entered. Ordering Provider: Bo MARTINEZ Report Released Date/Time: Apr 29, 2023 10:22 AM Reporting Lab: [facility] [place] [address] [address] Performing Lab: [facility] [place] [address] [address] [facility] [address] [place] [facility] BASIC METABOLIC PANEL (fasting) CALCIUM [MASS/VOLUM E] IN SERUM OR PLASMA 9.7 mg/dL 8.5 - 10.2 04/22 Specimen Type: SERUM No comment entered. Ordering Provider: Bo MARTINEZ Report Released Date/Time: Apr 29, 2023 10:22 AM Reporting Lab: [facility] [place] [address] [address] Performing Lab: [facility] [place] [facility] [address] [facility] [address] [address] [facility] BASIC METABOLIC PANEL (fasting) CREATININE [MASS/VOLUM E] IN SERUM OR PLASMA 0.74 mg/dL 0.50 - 1.40 04/22 Specimen Type: SERUM No comment entered. Ordering Provider: Bo MARTINEZ Report Released Date/Time: Apr 29, 2023 10:22 AM Reporting Lab: [facility] [address] [facility] [address] Performing Lab: [facility] TRN [facility]ENTER[facility] [address] [facility] [address] [facility] BASIC METABOLIC PANEL (fasting) GLOMERULAR FILTRATION RATE/1.73 SQ M.PREDICTED [VOLUME RATE/AREA] IN SERUM, PLASMA OR BLOOD BY CREATININE- BASED FORMULA (CKD-EPI 2020) >90mL/ min 60 04/22 Specimen Type: SERUM No comment entered. Ordering Provider: Bo MARTINEZ Report Released Date/Time: Apr 29, 2023 10:22 AM Reporting Lab: [facility]ENTERUSE[address] [address] Performing Lab: [facility] TRN [facility]ENTERUSE[address] [address] [facility] CBC AND DIFF (AUTO) LEUKOCYTES [#/VOLUME] IN BLOOD BY AUTOMATED COUNT 5.94 10*3/u L 4.50 - 11.00 04/22 Specimen Type: BLOOD No comment entered. Ordering Provider: Bo MARTINEZ Report Released Date/Time: Apr 29, 2023 10:22 AM Reporting Lab: [facility] [address] [address] Performing Lab: [facility] TRN [facility]ENTERUSE[address] [address] [address] [facility]ERN [facility] CBC AND DIFF (AUTO) ERYTHROCYTE S [#/VOLUME] IN BLOOD BY AUTOMATED COUNT 4.26 10*6/u L 4.23 - 5.66 04/22 Specimen Type: BLOOD No comment entered. Ordering Provider: Bo MARTINEZ Report Released Date/Time: Apr 29, 2023 10:22 AM Reporting Lab: [facility] [place] [facility] [address] [facility] [address] Performing Lab: [facility] [place] [facility] [address] [facility] [address] [facility] [place] [facility] CBC AND DIFF (AUTO) HEMOGLOBIN [MASS/VOLUM E] IN BLOOD 13.3 g/dL 12.8 - 17 04/22 Specimen Type: BLOOD No comment entered. Ordering Provider: Bo MARTINEZ Report Released Date/Time: Apr 29, 2023 10:22 AM Reporting Lab: [facility] [place] [facility] [address] [facility] [address] Performing Lab: [facility] [place] [facility] [address] [facility] [address] [facility] [place] [facility] CBC AND DIFF (AUTO) HEMATOCRIT [VOLUME FRACTION] OF BLOOD BY AUTOMATED COUNT 38.6 39.2 - 50.4 04/22 L Specimen Type: BLOOD No comment entered. Ordering Provider: Bo MARTINEZ Report Released Date/Time: Apr 29, 2023 10:22 AM Reporting Lab: [facility] [place] [facility] [address] [facility] [address] Performing Lab: [facility] [place] [facility] [address] [facility] [address] [facility] [place] [facility] CBC AND DIFF (AUTO) MCV [ENTITIC VOLUME] BY AUTOMATED COUNT 90.6 fL 82 - 99 04/22 Specimen Type: BLOOD No comment entered. Ordering Provider: Bo MARTINEZ Report Released Date/Time: Apr 29, 2023 10:22 AM Reporting Lab: [facility] [place] [facility] [address] [facility] [address] Performing Lab: [facility] [place] [facility] [address] [facility] [address] [facility] [place] CBC AND DIFF (AUTO) MCHC [MASS/VOLUM E] BY AUTOMATED COUNT 34.5 g/dL 30.8 - 35.1 04/22 Specimen Type: BLOOD No comment entered. Ordering Provider: Bo MARTINEZ Report Released Date/Time: Apr 29, 2023 10:22 AM Reporting Lab: [facility] [place] [facility] [address] [facility] [address] Performing Lab: [facility] [place] [facility] [address] [facility] [address] [facility] [place] [facility] CBC AND DIFF (AUTO) PLATELETS [#/VOLUME] IN BLOOD BY AUTOMATED COUNT 237 10*3/u L 140 - 360 04/22 Specimen Type: BLOOD No comment entered. Ordering Provider: Bo MARTINEZ Report Released Date/Time: Apr 29, 2023 10:22 AM Reporting Lab: [facility] [place] [facility] [address] [facility] [address] Performing Lab: [facility] [place] [facility] [address] [facility] [address] [facility] [place] [facility] CBC AND DIFF (AUTO) ERYTHROCYTE DISTRIBUTIO N WIDTH [RATIO] BY AUTOMATED COUNT 13.5 12.0 - 16.0 04/22 Specimen Type: BLOOD No comment entered. Ordering Provider: Bo MARTINEZ Report Released Date/Time: Apr 29, 2023 10:22 AM Reporting Lab: [facility] [place] [facility] [address] [facility] [address] Performing Lab: [facility] [place] [facility] [address] [facility] [address] [facility] [place] [facility] CBC AND DIFF (AUTO) MONOCYTES [#/VOLUME] IN BLOOD BY AUTOMATED COUNT 0.53 10*3/u L 0.30 - 1.10 04/22 Specimen Type: BLOOD No comment entered. Ordering Provider: Bo MARTINEZ Report Released Date/Time: Apr 29, 2023 10:22 AM Reporting Lab: [facility] [place] [facility] [address] [facility] [address] Performing Lab: [facility] [place] [facility] [address] [facility] [address] [facility] CBC AND DIFF (AUTO) MCH [ENTITIC MASS] BY AUTOMATED COUNT 31.2 pg 26.2 - 32.6 04/22 Specimen Type: BLOOD No comment entered. Ordering Provider: Bo MARTINEZ Report Released Date/Time: Apr 29, 2023 10:22 AM Reporting Lab: [facility] [address] [facility] [address] Performing Lab: [facility] [address] [facility] [address] [facility] CBC AND DIFF (AUTO) NEUTROPHILS /100 LEUKOCYTES IN BLOOD BY AUTOMATED COUNT 67.4 43.7 - 75.8 04/22 Specimen Type: BLOOD No comment entered. Ordering Provider: Bo MARTINEZ Report Released Date/Time: Apr 29, 2023 10:22 AM Reporting Lab: [facility] [address] [facility] [address] Performing Lab: [facility] [address] [facility] [address] [facility] CBC AND DIFF (AUTO) LYMPHOCYTES /100 LEUKOCYTES IN BLOOD BY AUTOMATED COUNT 20.5 14.0 - 42.3 04/22 Specimen Type: BLOOD No comment entered. Ordering Provider: Bo MARTINEZ Report Released Date/Time: Apr 29, 2023 10:22 AM Reporting Lab: [facility] [address] [facility] [address] Performing Lab: [facility] [address] [facility] [address] [facility] CBC AND DIFF (AUTO) MONOCYTES/1 00 LEUKOCYTES IN BLOOD BY AUTOMATED COUNT 8.9 5.1 - 13.7 04/22 Specimen Type: BLOOD No comment entered. Ordering Provider: Bo MARTINEZ Report Released Date/Time: Apr 29, 2023 10:22 AM Reporting Lab: [facility] [address] [facility] [address] Performing Lab: [facility] [address] [facility] [address] [facility] CBC AND DIFF (AUTO) EOSINOPHILS /100 LEUKOCYTES IN BLOOD BY AUTOMATED COUNT 2.2 0.4 - 6.8 04/22 Specimen Type: BLOOD No comment entered. Ordering Provider: Bo MARTINEZ Report Released Date/Time: Apr 29, 2023 10:22 AM Reporting Lab: [facility] [address] [facility] [address] Performing Lab: [facility] [place] [facility] [address] [facility] [address] [facility] CBC AND DIFF (AUTO) BASOPHILS/1 00 LEUKOCYTES IN BLOOD BY AUTOMATED COUNT 0.8 0.1 - 2.0 04/22 Specimen Type: BLOOD No comment entered. Ordering Provider: Bo MARTINEZ Report Released Date/Time: Apr 29, 2023 10:22 AM Reporting Lab: [facility] [address] [facility] [address] Performing Lab: [facility] [place] [facility] [address] [facility] [address] [facility] CBC AND DIFF (AUTO) NEUTROPHILS [#/VOLUME] IN BLOOD BY AUTOMATED COUNT 4.00 10*3/u L 2.20 - 7.60 04/22 Specimen Type: BLOOD No comment entered. Ordering Provider: Bo MARTINEZ Report Released Date/Time: Apr 29, 2023 10:22 AM Reporting Lab: [facility] [address] [facility] [address] Performing Lab: [facility] [place] [facility] [address] [facility] [address] [facility] CBC AND DIFF (AUTO) LYMPHOCYTES [#/VOLUME] IN BLOOD BY AUTOMATED COUNT 1.22 10*3/u L 1.00 - 3.20 04/22 Specimen Type: BLOOD No comment entered. Ordering Provider: Bo MARTINEZ Report Released Date/Time: Apr 29, 2023 10:22 AM Reporting Lab: [facility] [address] [facility] [address] Performing Lab: [facility] [address] [facility] [address] [facility] CBC AND DIFF (AUTO) EOSINOPHILS [#/VOLUME] IN BLOOD BY AUTOMATED COUNT 0.13 10*3/u L 0.03 - 0.44 04/22 Specimen Type: BLOOD No comment entered. Ordering Provider: Bo MARTINEZ Report Released Date/Time: Apr 29, 2023 10:22 AM Reporting Lab: [facility] [place] [facility] [address] [facility] [address] Performing Lab: [facility] [place] [facility] [address] [facility] [address] [facility] CBC AND DIFF (AUTO) BASOPHILS [#/VOLUME] IN BLOOD BY AUTOMATED COUNT 0.05 10*3/u L 0.01 - 0.13 04/22 Specimen Type: BLOOD No comment entered. Ordering Provider: Bo MARTINEZ Report Released Date/Time: Apr 29, 2023 10:22 AM Reporting Lab: [facility] [address] [facility] [address] Performing Lab: [facility] [address] [facility] [address] [facility] CBC AND DIFF (AUTO) IMMATURE GRANULOCYTE S/100 LEUKOCYTES IN BLOOD BY AUTOMATED COUNT 0.2 0.0 - 0.7 04/22 Specimen Type: BLOOD No comment entered. Ordering Provider: Bo MARTINEZ Report Released Date/Time: Apr 29, 2023 10:22 AM Reporting Lab: [facility] [place] [facility] [address] [facility] [address] Performing Lab: [facility] [place] [facility] [address] [facility] [address] [facility] CBC AND DIFF (AUTO) IMMATURE GRANULOCYTE S [#/VOLUME] IN BLOOD BY AUTOMATED COUNT 0.01 10*3/u L 0.00 - 0.06 04/22 Specimen Type: BLOOD No comment entered. Ordering Provider: Bo MARTINEZ Report Released Date/Time: Apr 29, 2023 10:22 AM Reporting Lab: [facility] [place] [facility] [address] [facility] [address] Performing Lab: [facility] [place] [facility] [address] [facility] [address] [facility] CBC AND DIFF (AUTO) NUCLEATED ERYTHROCYTE S/100 LEUKOCYTES [RATIO] IN BLOOD BY AUTOMATED COUNT 0.0 0.0 - 0.0 04/22 Specimen Type: BLOOD No comment entered. Ordering Provider: Bo MARTINEZ Report Released Date/Time: Apr 29, 2023 10:22 AM Reporting Lab: [facility] [place] [facility] [address] [facility] [address] Performing Lab: [facility] [place] [facility] [address] [facility] [address] [facility] CBC AND DIFF (AUTO) NUCLEATED ERYTHROCYTE S [#/VOLUME] IN BLOOD BY AUTOMATED COUNT 0.00 10*3/u L 0.00 - 0.00 04/22 Specimen Type: BLOOD No comment entered. Ordering Provider: Bo MARTINEZ Report Released Date/Time: Apr 29, 2023 10:22 AM Reporting Lab: [facility] [place] [facility] [address] [facility] [address] Performing Lab: [facility] [place] [facility] [address] [facility] [address] [facility] LIVER FUNCTION PROTEIN [MASS/VOLUM E] IN SERUM OR PLASMA 7.3 g/dL 6.0 - 8.3 04/24 Specimen Type: SERUM No comment entered. Ordering Provider: Bo MARTINEZ Report Released Date/Time: Apr 16, 2023 11:34 AM Reporting Lab: [facility] [place] [facility] [address] [facility] [address] Performing Lab: [facility] [place] [facility] [address] [facility] [address] [facility] LIVER FUNCTION ALBUMIN [MASS/VOLUM E] IN SERUM OR PLASMA 4.1 g/dL 3.5 - 5.0 04/24 Specimen Type: SERUM No comment entered. Ordering Provider: Bo MARTINEZ Report Released Date/Time: Apr 16, 2023 11:34 AM Reporting Lab: [facility] [place] [facility] [address] [facility] [address] Performing Lab: [facility] [place] [facility] [address] [facility] [address] [facility] LIVER FUNCTION ALKALINE PHOSPHATASE [ENZYMATIC ACTIVITY/VO LUME] IN SERUM OR PLASMA 75 U/L 40 - 150 04/24 Specimen Type: SERUM No comment entered. Ordering Provider: Bo MARTINEZ Report Released Date/Time: Apr 16, 2023 11:34 AM Reporting Lab: [facility] [place] [facility] [address] [facility] [address] Performing Lab: [facility] [place] [facility] [address] [facility] [address] [facility] LIVER FUNCTION ASPARTATE AMINOTRANSF ERASE [ENZYMATIC ACTIVITY/VO LUME] IN SERUM OR PLASMA 21 U/L 5 - 34 04/24 Specimen Type: SERUM No comment entered. Ordering Provider: Bo MARTINEZ Report Released Date/Time: Apr 16, 2023 11:34 AM Reporting Lab: [facility] [place] [facility] [address] [facility] [address] Performing Lab: [facility] [place] [facility] [address] [facility] [address] [facility] LIVER FUNCTION ALANINE AMINOTRANSF ERASE [ENZYMATIC ACTIVITY/VO LUME] IN SERUM OR PLASMA 25 U/L 04/24 Specimen Type: SERUM No comment entered. Ordering Provider: Bo MARTINEZ Report Released Date/Time: Apr 16, 2023 11:34 AM Reporting Lab: [facility] [place] [address] [address] Performing Lab: [facility] [place] [facility] [address] [facility] [address] [facility] LIVER FUNCTION BILIRUBIN.T OTAL [MASS/VOLUM E] IN SERUM OR PLASMA 0.3 mg/dL 0.2 - 1.2 04/24 Specimen Type: SERUM No comment entered. Ordering Provider: Bo MARTINEZ Report Released Date/Time: Apr 16, 2023 11:34 AM Reporting Lab: [facility] [place] [address] [address] Performing Lab: [facility] [place] [address] [address] [facility] BASIC METABOLIC PANEL (fasting) UREA NITROGEN [MASS/VOLUM E] IN SERUM OR PLASMA 16 mg/dL 7 - 25 04/24 Specimen Type: SERUM No comment entered. Ordering Provider: Bo AMRTINEZ Report Released Date/Time: Apr 16, 2023 11:34 AM Reporting Lab: [facility] [place] [address] [address] Performing Lab: [facility] [place] [address] [address] [facility] [place] BASIC METABOLIC PANEL (fasting) GLUCOSE [MASS/VOLUM E] IN SERUM OR PLASMA 99 mg/dL 65 - 100 04/24 Specimen Type: SERUM No comment entered. Ordering Provider: Bo MARTINEZ Report Released Date/Time: Apr 16, 2023 11:34 AM Reporting Lab: [facility] [place] [address] [place] [address] Performing Lab: [facility] [place] [facility] [address] [facility] [address] [facility] BASIC METABOLIC PANEL (fasting) SODIUM [MOLES/VOLU ME] IN SERUM OR PLASMA 140 mmol/L 135 - 145 04/24 Specimen Type: SERUM No comment entered. Ordering Provider: Bo MARTINEZ Report Released Date/Time: Apr 16, 2023 11:34 AM Reporting Lab: [facility] [place] [facility] [address] [facility] [address] Performing Lab: [facility] [place] [facility] [address] [facility] [address] [facility] BASIC METABOLIC PANEL (fasting) POTASSIUM [MOLES/VOLU ME] IN SERUM OR PLASMA 4.5 mmol/L 3.5 - 5.0 04/24 Specimen Type: SERUM No comment entered. Ordering Provider: Bo MARTINEZ Report Released Date/Time: Apr 16, 2023 11:34 AM Reporting Lab: [facility] [place] [facility] [address] [facility] [address] Performing Lab: [facility] [place] [facility] [address] [facility] [address] [facility] [place] [facility] BASIC METABOLIC PANEL (fasting) CHLORIDE [MOLES/VOLU ME] IN SERUM OR PLASMA 103 mmol/L 100 - 110 04/24 Specimen Type: SERUM No comment entered. Ordering Provider: Bo MARTINEZ Report Released Date/Time: Apr 16, 2023 11:34 AM Reporting Lab: [facility] [place] [facility] [address] [facility] [address] Performing Lab: [facility] [place] [facility] [address] [facility] [address] [facility] [place] [facility] BASIC METABOLIC PANEL (fasting) CARBON DIOXIDE, TOTAL [MOLES/VOLU ME] IN SERUM OR PLASMA 27 meq/L 20 - 30 04/24 Specimen Type: SERUM No comment entered. Ordering Provider: Bo MARTINEZ Report Released Date/Time: Apr 16, 2023 11:34 AM Reporting Lab: [facility] [place] [facility] [address] [facility] [address] Performing Lab: [facility] [place] [facility] [address] [facility] [address] [facility] BASIC METABOLIC PANEL (fasting) CREATININE [MASS/VOLUM E] IN SERUM OR PLASMA 0.80 mg/dL 0.50 - 1.40 04/24 Specimen Type: SERUM No comment entered. Ordering Provider: Bo MARTINEZ Report Released Date/Time: Apr 16, 2023 11:34 AM Reporting Lab: [facility] [place] [facility] [address] [facility] [address] Performing Lab: [facility] [place] [address] [address] [facility] [facility] BASIC METABOLIC PANEL (fasting) GLOMERULAR FILTRATION RATE/1.73 SQ M.PREDICTED [VOLUME RATE/AREA] IN SERUM, PLASMA OR BLOOD BY CREATININE- BASED FORMULA (CKD-EPI 2020) >90mL/ min 60 04/24 Specimen Type: SERUM No comment entered. Ordering Provider: Bo MARTINEZ Report Released Date/Time: Apr 16, 2023 11:34 AM Reporting Lab: [facility] [place] [address] [address] Performing Lab: [facility] [place] [address] [address] [facility] LIPID PANEL FASTING CHOLESTEROL [MASS/VOLUM E] IN SERUM OR PLASMA 138 mg/dL 04/24 Specimen Type: SERUM No comment entered. Ordering Provider: Bo MARTINEZ Report Released Date/Time: Apr 16, 2023 11:34 AM Reporting Lab: [facility] [place] [address] [address] Performing Lab: [facility] [place] [address] [address] [address] [facility] LIPID PANEL FASTING TRIGLYCERID E [MASS/VOLUM E] IN SERUM OR PLASMA 83 mg/dL 0 - 150 04/24 Specimen Type: SERUM No comment entered. Ordering Provider: Bo MARTINEZ Report Released Date/Time: Apr 16, 2023 11:34 AM Reporting Lab: [facility] [place] [facility] [address] [facility] [address] Performing Lab: [facility] [place] [facility] [address] [facility] [address] [facility] LIPID PANEL FASTING CHOLESTEROL IN LDL [MASS/VOLUM E] IN SERUM OR PLASMA BY CALCULATION 68 mg/dL 0 - 129 04/24 Specimen Type: SERUM No comment entered. Ordering Provider: Bo MARTINEZ Report Released Date/Time: Apr 16, 2023 11:34 AM Reporting Lab: [facility] [place] [facility] [address] [facility] [address] Performing Lab: [facility] [place] [facility] [address] [facility] [address] [facility] [facility] LIPID PANEL FASTING CHOLESTEROL .TOTAL/CHOL ESTEROL IN HDL [MASS RATIO] IN SERUM OR PLASMA 2.6 04/24 Specimen Type: SERUM No comment entered. Ordering Provider: Bo MARTINEZ Report Released Date/Time: Apr 16, 2023 11:34 AM Reporting Lab: [facility] [place] [facility] [address] [facility] [address] Performing Lab: [facility] [place] [facility] [address] [facility] [address] [address] [place] [facility] LIPID PANEL FASTING CHOLESTEROL IN HDL [MASS/VOLUM E] IN SERUM OR PLASMA 53 mg/dL 40 - 60 04/24 Specimen Type: SERUM No comment entered. Ordering Provider: Bo MARTINEZ Report Released Date/Time: Apr 16, 2023 11:34 AM Reporting Lab: [facility] [place] [facility] [address] [facility] [address] Performing Lab[facility] [place] [place] [facility] [address] [facility] [address] [facility]FA[facility]ERN [facility] VITAMIN D (25-OH) 25-HYDROXYV ITAMIN D3 [MASS/VOLUM E] IN SERUM OR PLASMA 29 ng/mL 20 - 50 04/24 Specimen Type: SERUM No comment entered. Ordering Provider: Bo MARTINEZ Report Released Date/Time: Apr 16, 2023 11:34 AM Reporting Lab: [facility] [place] [facility] [address] [facility] [address] Performing Lab: [facility]ITALRFAYETTE MEDICAL CENTERN [facility]ENTERUSE[address] [address] [facility]USE [facility] CBC AND DIFF (AUTO) LEUKOCYTES [#/VOLUME] IN BLOOD BY AUTOMATED COUNT 6.22 10*3/u L 4.50 - 11.00 04/24 Specimen Type: BLOOD No comment entered. Ordering Provider: Bo MARTINEZ Report Released Date/Time: Apr 16, 2023 11:34 AM Reporting Lab: [facility]ITALRFAYETTE MED[facility] CENTERN [facility] CENTERUSE[address] [address] Performing Lab: [facility]ITALRFAYETTE MED[facility] CENTERN [facility] CENTERUSE[address] [address] [facility]N [facility] CBC AND DIFF (AUTO) ERYTHROCYTE S [#/VOLUME] IN BLOOD BY AUTOMATED COUNT 4.24 10*6/u L 4.23 - 5.66 04/24 Specimen Type: BLOOD No comment entered. Ordering Provider: Bo MARTINEZ Report Released Date/Time: Apr 16, 2023 11:34 AM Reporting Lab: [facility]ITALRFAYETTE [facility] CENTERN INTERM[facility] CENTERUSETS [address] [address] Performing Lab: [facility]ITALRFAYETTE MEDICAL CENTERN [facility] CENTERUSE[address] [address] [facility]N [facility]USE [facility] CBC AND DIFF (AUTO) HEMOGLOBIN [MASS/VOLUM E] IN BLOOD 13.2 g/dL 12.8 - 17 04/24 Specimen Type: BLOOD No comment entered. Ordering Provider: Bo MARTINEZ Report Released Date/Time: Apr 16, 2023 11:34 AM Reporting Lab: [facility] [place] [facility] [address] [facility] [address] Performing Lab: [facility] [place] [facility] [address] [facility] [address] [facility] CBC AND DIFF (AUTO) HEMATOCRIT [VOLUME FRACTION] OF BLOOD BY AUTOMATED COUNT 38.6 39.2 - 50.4 04/24 L Specimen Type: BLOOD No comment entered. Ordering Provider: Bo MARTINEZ Report Released Date/Time: Apr 16, 2023 11:34 AM Reporting Lab: [facility] [place] [facility] [address] [facility] [address] Performing Lab: [facility] [place] [facility] [address] [facility] [address] [facility] CBC AND DIFF (AUTO) MCV [ENTITIC VOLUME] BY AUTOMATED COUNT 91.0 fL 82 - 99 04/24 Specimen Type: BLOOD No comment entered. Ordering Provider: Bo MARTINEZ Report Released Date/Time: Apr 16, 2023 11:34 AM Reporting Lab: [facility] [place] [facility] [address] [facility] [address] Performing Lab: [facility] [place] [facility] [address] [facility] [address] [facility] CBC AND DIFF (AUTO) MCHC [MASS/VOLUM E] BY AUTOMATED COUNT 34.2 g/dL 30.8 - 35.1 04/24 Specimen Type: BLOOD No comment entered. Ordering Provider: Bo MARTINEZ Report Released Date/Time: Apr 16, 2023 11:34 AM Reporting Lab: [facility] [place] [facility] [address] [facility] [address] Performing Lab: [facility] [place] [facility] [address] [facility] [address] [facility] CBC AND DIFF (AUTO) PLATELETS [#/VOLUME] IN BLOOD BY AUTOMATED COUNT 228 10*3/u L 140 - 360 04/24 Specimen Type: BLOOD No comment entered. Ordering Provider: Bo MARTINEZ Report Released Date/Time: Apr 16, 2023 11:34 AM Reporting Lab: [facility] [place] [address] [address] Performing Lab: [facility] [place] [facility] [address] [facility] [address] [facility] [place] [facility] CBC AND DIFF (AUTO) ERYTHROCYTE DISTRIBUTIO N WIDTH [RATIO] BY AUTOMATED COUNT 13.2 12.0 - 16.0 04/24 Specimen Type: BLOOD No comment entered. Ordering Provider: Bo MARTINEZ Report Released Date/Time: Apr 16, 2023 11:34 AM Reporting Lab: [facility] [place] [address] [address] Performing Lab: [facility] [place] [address] [address] [facility] [place] [facility] CBC AND DIFF (AUTO) MONOCYTES [#/VOLUME] IN BLOOD BY AUTOMATED COUNT 0.62 10*3/u L 0.30 - 1.10 04/24 Specimen Type: BLOOD No comment entered. Ordering Provider: Bo MARTINEZ Report Released Date/Time: Apr 16, 2023 11:34 AM Reporting Lab: [facility] [place] [address] [address] Performing Lab: [facility] [place] [address] [address] [facility] CBC AND DIFF (AUTO) MCH [ENTITIC MASS] BY AUTOMATED COUNT 31.1 pg 26.2 - 32.6 04/24 Specimen Type: BLOOD No comment entered. Ordering Provider: Bo MARTINEZ Report Released Date/Time: Apr 16, 2023 11:34 AM Reporting Lab: [facility] [place] [address] [address] Performing Lab[facility] [place] [facility] [address] [facility] [address] [facility] [place] CBC AND DIFF (AUTO) NEUTROPHILS /100 LEUKOCYTES IN BLOOD BY AUTOMATED COUNT 61.4 43.7 - 75.8 04/24 Specimen Type: BLOOD No comment entered. Ordering Provider: Bo MARTINEZ Report Released Date/Time: Apr 16, 2023 11:34 AM Reporting Lab: [facility] [place] [facility] [address] [facility] [address] Performing Lab: [facility] [place] [facility] [address] [facility] [address] [facility] [place] CBC AND DIFF (AUTO) LYMPHOCYTES /100 LEUKOCYTES IN BLOOD BY AUTOMATED COUNT 24.1 14.0 - 42.3 04/24 Specimen Type: BLOOD No comment entered. Ordering Provider: Bo MARTINEZ Report Released Date/Time: Apr 16, 2023 11:34 AM Reporting Lab: [facility] [place] [facility] [address] [facility] [address] Performing Lab: [facility] [place] [facility] [address] [facility] [address] [facility] CBC AND DIFF (AUTO) MONOCYTES/1 00 LEUKOCYTES IN BLOOD BY AUTOMATED COUNT 10.0 5.1 - 13.7 04/24 Specimen Type: BLOOD No comment entered. Ordering Provider: Bo MARTINEZ Report Released Date/Time: Apr 16, 2023 11:34 AM Reporting Lab: [facility] [address] [facility] [address] Performing Lab: [facility] [address] [facility] [address] [facility] CBC AND DIFF (AUTO) EOSINOPHILS /100 LEUKOCYTES IN BLOOD BY AUTOMATED COUNT 3.5 0.4 - 6.8 04/24 Specimen Type: BLOOD No comment entered. Ordering Provider: Bo MARTINEZ Report Released Date/Time: Apr 16, 2023 11:34 AM Reporting Lab: [facility] [address] [facility] [address] Performing Lab[facility] [address] [facility] [address] [facility] CBC AND DIFF (AUTO) BASOPHILS/1 00 LEUKOCYTES IN BLOOD BY AUTOMATED COUNT 0.8 0.1 - 2.0 04/24 Specimen Type: BLOOD No comment entered. Ordering Provider: Bo MARTINEZ Report Released Date/Time: Apr 16, 2023 11:34 AM Reporting Lab: [facility] [address] [facility] [address] Performing Lab: [facility] [address] [facility] [address] [facility] CBC AND DIFF (AUTO) NEUTROPHILS [#/VOLUME] IN BLOOD BY AUTOMATED COUNT 3.82 10*3/u L 2.20 - 7.60 04/24 Specimen Type: BLOOD No comment entered. Ordering Provider: Bo MARTINEZ Report Released Date/Time: Apr 16, 2023 11:34 AM Reporting Lab: [facility] [address] [facility] [address] Performing Lab[facility] [address] [facility] [address] [facility] CBC AND DIFF (AUTO) LYMPHOCYTES [#/VOLUME] IN BLOOD BY AUTOMATED COUNT 1.50 10*3/u L 1.00 - 3.20 04/24 Specimen Type: BLOOD No comment entered. Ordering Provider: Bo MARTINEZ Report Released Date/Time: Apr 16, 2023 11:34 AM Reporting Lab: [facility] [place] [facility] [address] [facility] [address] Performing Lab: [facility] [place] [facility] [address] [facility] [address] [facility] CBC AND DIFF (AUTO) EOSINOPHILS [#/VOLUME] IN BLOOD BY AUTOMATED COUNT 0.22 10*3/u L 0.03 - 0.44 04/24 Specimen Type: BLOOD No comment entered. Ordering Provider: Bo MARTINEZ Report Released Date/Time: Apr 16, 2023 11:34 AM Reporting Lab: [facility] [place] [address] [address] Performing Lab: [facility] [place] [address] [address] [facility] [place] [facility] CBC AND DIFF (AUTO) BASOPHILS [#/VOLUME] IN BLOOD BY AUTOMATED COUNT 0.05 10*3/u L 0.01 - 0.13 04/24 Specimen Type: BLOOD No comment entered. Ordering Provider: Bo MARTINEZ Report Released Date/Time: Apr 16, 2023 11:34 AM Reporting Lab: [facility] [place] [address] [address] Performing Lab: [facility] [place] [address] [address] [facility] [place] [facility] CBC AND DIFF (AUTO) IMMATURE GRANULOCYTE S/100 LEUKOCYTES IN BLOOD BY AUTOMATED COUNT 0.2 0.0 - 0.7 04/24 Specimen Type: BLOOD No comment entered. Ordering Provider: Bo MARTINEZ Report Released Date/Time: Apr 16, 2023 11:34 AM Reporting Lab: [facility] [place] [address] [address] Performing Lab: [facility] [place] [address] [address] [facility] [place] [facility] CBC AND DIFF (AUTO) IMMATURE GRANULOCYTE S [#/VOLUME] IN BLOOD 0.01 10*3/u L 0.00 - 0.06 04/24 Specimen Type: BLOOD No comment entered. Ordering Provider: Bo MARTINEZ Report Released Date/Time: Apr 16, 2023 11:34 AM Reporting Lab: [facility] [place] [facility] [address] [facility] [address] Performing Lab: [facility] [address] [facility] [address] [facility] VITAMIN D 25-OH (Therapy monitor) 25-HYDROXYV [...] additional information , please refer to [email or web address] [email or web address] .[employer]/faq/FA Q199 (This link is being provided for information al/ educational purposes only.) This test was developed and its analytical performance characteris tics have been determined by [employer] [place], [place]. It has not been cleared or approved by the U.S. Food and Drug Administrat ion. This assay has been validated pursuant to the CLIA regulations and is used for clinical purposes. This test was developed and its analytical performance characteris tics have been determined by [employer] [place]. It has not been cleared or approved by the U.S. Food and Drug Administrat ion. This assay has been validated pursuant to the CLIA regulations and is used for clinical purposes. Test Performed by [facility], [email or web address] [facility], [address] [place], [place] Hayes Granado M.D., Ph.D., Director of Laboratorie s , CLIA [id number] TEST PERFORMED AT: , Ordering Provider: Bo MARTINEZ Report Released Date/Time: Aug 30, 2021 11:50 AM Reporting Lab: [facility] [address] [facility] [address] Performing Lab: [facility] [address] [address] [facility] VITAMIN D 25-OH (Therapy monitor) 25-HYDROXYV ITAMIN [...] additional information , please refer to [email or web address] [email or web address] .com/faq/FA Q199 (This link is being provided for information al/ educational purposes only.) This test was developed and its analytical performance characteris tics have been determined by [email or web address] [place]. It has not been cleared or approved by the U.S. Food and Drug Administrat ion. This assay has been validated pursuant to the CLIA regulations and is used for clinical purposes. This test was developed and its analytical performance characteris tics have been determined by [facility] [place] It has not been cleared or approved by the U.S. Food and Drug Administrat ion. This assay has been validated pursuant to the CLIA regulations and is used for clinical purposes. Test Performed by [facility], [employer] [facility], [address] [place], [place] Hayes Granado M.D., Ph.D., Director of Laboratorie s , CLIA [id number] TEST PERFORMED AT: , Ordering Provider: Bo MARTINEZ Report Released Date/Time: Aug 30, 2021 11:50 AM Reporting Lab: [facility] [address] [facility] [address] Performing Lab: [facility] [address] [address] [facility] VITAMIN D 25-OH (Therapy monitor) CALCIFEROL [...] any concern. Vita CAREY, Katie DAVISON, Allison herzog SHEPHERD, et al. Evaluation, treatment and prevention of vitamin D deficiency: an Endocrine Society clinical practice guideline. J Clin Endocrinol Metab. 2011;96(7): 1911-30. For additional information , please refer to [email or web address] [email or web address] .com/faq/FA Q199 (This link is being provided for information al/ educational purposes only.) This test was developed and its analytical performance characteris tics have been determined by [email or web address] [place], [place]. It has not been cleared or approved by the U.S. Food and Drug Administrat ion. This assay has been validated pursuant to the CLIA regulations and is used for clinical purposes. This test was developed and its analytical performance characteris tics have been determined by [employer] [place], [place]. It has not been cleared or approved by the U.S. Food and Drug Administrat ion. This assay has been validated pursuant to the CLIA regulations and is used for clinical purposes. Test Performed by [facility], [employer] [facility], [address] [place] [address] Hayes Granado M.D., Ph.D., Director of Laboratorie s , CLIA [id number] TEST PERFORMED AT: , Ordering Provider: Bo MARTINEZ Report Released Date/Time: Aug 30, 2021 11:50 AM Reporting Lab: [facility] [address] [facility] [address] Performing Lab: [facility] [address] [facility] Vital Signs Combined list of inpatient and outpatient Vital Signs from Department of Defense and Veterans Affairs, ranging from 12 months to all on record, depending upon the facility. Vital Sign Value Date Comments Source SYSTOLIC BLOOD PRESSURE 140 04/28/19 25 07:50:34 [facility] DIASTOLIC BLOOD PRESSURE 80 025 07:50:34 [facility] [place] [facility] PULSE OXIMETRY 97 04/27/2024 07:50:34 [facility] WEIGHT 277 04/27/2024 07:50:34 [facility] BMI 36 kg/m2 04/27/2024 07:50:34 [facility] [place] PAIN 0 04/27/2024 07:50:34 [facility] HEIGHT 74 04/27/2024 [...] included; 2) Encounters from the Department of Content [employer] facilities going backup to 280 months. Location Location Details Encounter Type Encounter Number Reason For Visit Attending Provider ADM Date DC Date Status Disposition Source [facility] Encounter [id number] 12/30 [facility] En[facility] [id number] 01/28 [facility] En[facility] [id number] 03/14 [facility] En[facility] [id number] 03/26 [facility] En[facility] [id number] 04/03 [facility] COMPRE OPH EXAM EST PT 1/> [id number] Diagnos is: ICD-10- CM L71.8 Other rosacea ELISA ALAN 04/16 [facility] FIT SPECTACLES MONOFOCAL [id number] Diagnos is: ICD-10- CM Z46.0 Encount er for fit/adj st of spectac les and contact lenses ELISA ALAN 04/17 [facility] [place] CLEAN/INSP ECT MAX COMP DENT [id number] Diagnos is: ICD-10- CM K03.6 Deposit s [accret ions] on teeth KDN ADEZHDAnatoliy 04/24 [facility] [place] OFFICE O/P EST MOD 30 MIN [id number] Diagnos is: ICD-10- CM Z77.29 Contact with and exposur e to other hazardo us substan efren BLAISE MARTINEZ 04/28 [facility] En[facility] [id number] 1.10/26 [facility] Out[facility]counter [id number] 02/17 [facility] Encounter [id number] 02/18 [facility] [place] DETERMINE REFRACTIVE STATE [id number] Diagnos is: ICD-10- CM L71.8 Other rosacea ELISA ALAN OSVALDO 04/22 [facility] Out[facility] Encounter [id number] 04/27 [facility] [place] [facility] OFFICE O/P EST MOD 30 MIN [id number] Diagnos is: ICD-10- CM I48.91 Unspeci fied atrial fibrill atBLAISE Dickson 04/27 [facility] [place] [facility] [place] [facility] NQHP OL DIG ASSMT&MGMT 5-10 [id number] Diagnos is: ICD-10- CM D12.6 Benign neoplas m of colon, unspeci fied [place],CH RISTY A 05/13 [facility] [place] [place] [facility] Social History Combined list of available smoking, tobacco, and other social history from Department of Defense and Veterans Affairs facilities. Social History Type Response Date Comment Source Tobacco smoking status GAIS ID-TOBACCO NEVER USED OTHER TYPE 04/27/2024 [facility] [place] [place] [facility] History of tobacco use ID-TOBACCO USE EVERY DAY CIGARETTES 04/27/2024 [facility] [place] [place] [facility] History of tobacco use ID-TOBACCO USE WI 30 MIN OF WAKEUP 04/29/2023 [facility] [place] [place] [facility] History of tobacco use ID-TOBACCO USER EVERY DAY 07/19/2021 [facility] [place] [facility] History of tobacco use ID-TOBACCO FORMER USER 05/09/2020 [facility] [place] [facility] History of tobacco use ID-TOBACCO FORMER USER 03/23/2019 [facility] [place] [place] [facility] History of tobacco use ID-TOBACCO NEVER USED 01/19/2018 [facility] [place] [facility] History of tobacco use QUIT TOBACCO USE 1-7 YEARS AGO 01/17/2017 [facility] [place] [place] [facility] History of tobacco use QUIT TOBACCO USE 1-7 YEARS AGO 04/19/2016 [facility] [place] [facility] History of tobacco use QUIT TOBACCO USE 1-7 YEARS AGO 05/05/2014 [facility] [place] [facility] History of tobacco use QUIT TOBACCO USE 1-7 YEARS AGO 04/08/2013 . [facility] History of tobacco use CURRENT SMOKER 01/10/2012 [facility] History of tobacco use V1-PT DECLINES TOBACCO CESSATION MEDS 04/25/2011 [facility] History of tobacco use CURRENT SMOKER 08/16/2010 1 pk per wk [facility] History of tobacco use V1-PT THINKING ABOUT QUIT TOBACCO USE 12/28/2009 [facility] History of tobacco use V1-PT DECLINES TOBACCO CESSATION MEDS 03/20/2009 [facility] History of tobacco use CURRENT SMOKER 03/13/2009 just when he is drinking. He can't stand it otherwise. [facility] Advance Directives List of completed, amended, or rescinded Advance Directives on record at Department of [facility] facilities. An actual copy of the Directive is not included. Date Advance Directive Provider Source 06/08/2014 ADVANCE DIRECTIVE TARYN VILLATORO [facility]
--- OUTSIDE RECORDS SUMMARY | 2024-06-08 08:09 | XMS_ITS | Clinical Summary ---
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 - Main Lab [address] [facility] [place] [address] Michael Mullins PA Urinary tract infection, site not specified from Last 3 Months Surgical History Surgery Date Site/Laterality Comments KNEE ARTHROSCOPY PROCEDURE: MD ARTHROSCOPY AID TX SPINE&/FX KNEE W/O FIXJ [...] 60-74 years 1-dose series) 2013 COVID-19 Vaccine (2023-2 5 season) 2023 Abdominal Aortic Aneurysm (A AA) Screen 05/05/2024 Cholesterol Screening (Lipid Panel) 05/05/2024 Colorectal Cancer Screening: Colonoscopy 05/05/2024 Depression Screening 05/05/2024 Falls Risk Assessment 05/05/2024 Hepatitis C Screening 05/05/2024 Hypertension/CHF/CAD Annual BMP Blood Test 05/05/2024 Medicare Annual Wellness Visit 05/05/2024 Social Influencers of Health Screening 05/05/2024 Influenza Vaccine (Season Ended) 2024 HIB Vaccines Aged Out No longer eligi [...] age to complete this topic Meningococcal B Vaccine Aged Out No l onger eligible based on patient's age to complete [...] Escherichia coli(A) JOSSY 05/06/2024 11:09 AM EDT [facility] Urine Urine specimen [...] Escherichia coli Trimethoprim/Sulfamethoxazole JOSSY <=20 ug/ml: Susceptible [facility] MICROBIOLOGY - GENERAL SVETAE AWA Final Result [facility] [address] [place] [address], from Last 3 Months Insurance MEDICARE [employer] Care Teams Metal Dealer Relationship Specialty Start Date End Date Wayne Huston MD [address] [place] [address] Dr [address] [place], [place] [address]GILBERTO PCP - General Internal Medicine 02/10/11
--- OUTSIDE RECORDS SUMMARY | 2024-06-08 08:09 | XMS_ITS | Encounter Summary ---
Author Name [facility] [place] [facility] [place] Organization [facility] [place] [facility] [place] Address [address] [place] [id number] Care Team Providers Care Propagation Manager Name Role Phone BLAISE MARTINEZ Primary [...] Greco's Name Patient's Relationship to Policy Greco [facility] MEDICARE SUPPLEMEN ROHITH MEDEX 2 Aug 10, 2018 [id number] Cresencio GAYTAN PATIENT [place] SUPPLEMEN ROHITH MEDEX 2 Aug 10, 2018 [id number] Cresencio GAY[place] SUPPLEMEN ROHITH MEDEX 2 Aug 10, 2018 [id number] Cresencio GAYTAN PATIENT BCBS OF [facility] MEDICARE SUPPLEMEN ROHITH AGAWA [facility] OF Aug 10, 2018 [id number] Cresencio GAYTAN PATIENT EXPRESS SCRIPTS ([id number]) PRESCRIPT ION BCBSM A June 21, 2010 [facility] [id number] Cresencio GAYTAN PATIENT MEDICARE (WNR) MEDICARE (M) PART A Aug 10, 2018 PART A [id number] Cresencio GAYTAN PATIENT MEDICARE (WNR) MEDICARE (M) PART B Aug 10, 2018 PART B [id number] Cresencio GAYTAN PATIENT MEDICARE (WNR) MEDICARE (M) PART A Aug 10, 2018 PART A [id number] [phone] Cresencio GAYTAN PATIENT MEDICARE (WNR) MEDICARE (M) PART B Aug 10, 2018 PART B [id number] [phone] Cresencio GAYTAN PATIENT Selected Encounter This section includes the information on record at NH for the Encounter. Date/Time Encounter Type Encounter Description Reason Provider Source Apr 22, 2024 07:30 AM DETERMINE REFRACTIVE STATE OPTOMETRY ICD-10-CM L71.8 Other KELLI Cates Encounter Template Text not used by NH Assessments - Encounter Diagnoses This section includes the primary and secondary diagnoses documented for the Encounter. Date/Time Primary/Secondary Diagnosis Diagnosis Name Provider Source Apr 22, 2024 07:52 AM PRIMARY Other rosacea CANDELARIO ALAN [facility] [place] [facility] Apr 22, 2024 07:52 AM SECONDARY Age-related nuclear cataract, bilateral CANDELARIO ALAN [facility] [place] [facility] Apr 22, 2024 07:52 AM SECONDARY Meibomian gland dysfnct left eye, upper and lower eyelids CANDELARIO ALAN [facility] [place] [facility] Apr 22, 2024 07:52 AM SECONDARY Meibomian gland dysfnct right eye, upper and lower eyelids CANDELARIO ALAN [facility] [place] [facility] Apr 22, 2024 07:52 AM SECONDARY Other detention (current) drug therapy CANDELARIO ALAN [facility] [place] [facility] Apr 22, 2024 07:52 AM SECONDARY Unspecified atrial fibrillation CANDELARIO ALAN [facility] [place] [facility] Apr 22, 2024 07:52 AM SECONDARY Vitreous degeneration, right eye CANDELARIO ALAN [facility] Plan of Treatment: Future Appointments (+ 6 months) and Future Tests (+/- 45 days) The Plan of Treatment section includes future care activities for the patient from all [place] [facility]. This section includes future appointments and future orders which are active, pending or scheduled. Future Appointments This section includes appointments that were scheduled to occur 6 months from the date of the Encounter, up to a maximum of 20 appointments. The data comes from all NH treatment facilities. Appointment Date/Time Appointment Type Appointme nt Facility Name Apr 27, 2024 08:00 AM AMBULATORY - MEDICINE [facility] Lab Results: +/- 30 days of the encounter This section includes the Chemistry and Hematology Lab Results on record with NH for the patient. Radiology Reports and Pathology Reports are provided separately, in subsequent sections. Lab Results This section contains the Chemistry/Hematology Results that were resulted 30 days before or 30 daysafter the date of the Encounter. Date/Time Source Result Type Result - Unit Interpretation Reference Range Specimen Type Comment Apr 22, 2024 07:55 AM [facility] LIPID PANEL FASTING SERUM Specimen Type: SERUM No comment entered. Ordering Provider: KUNAL MARTINEZ Report Released Date/Time: Apr 29, 2023 10:22 AM Reporting Lab: [facility] [address] [facility] [address] Performing Lab: [address] [address] CHOLESTEROL 139 mg/dL TRIGLYCERIDE 107 mg/dL 0-150 LDL calculated 68 mg/dL 0-129 CHOL/HDL 2.8 HDL CHOLESTEROL 50 mg/dL 40-60 Apr 22, 2024 07:55 AM [facility] LIVER FUNCTION SERUM Specimen Type: SERUM No comment entered. Ordering Provider: BLAISE MARTINEZ Report Released Date/Time: Apr 29, 2023 10:22 AM Reporting Lab: [facility] [address] [facility] [id number] Performing Lab: [address] [address] PROTEIN,TOTAL 7.7 g/dL 6.0-8.3 ALBUMIN 3.9 g/dL 3.5-5.0 ALKALINE PHOSPHATASE 78 U/L 40-150 AST 18 U/L 5-34 ALT 17 U/L BILIRUBIN, TOTAL 0.4 mg/dL 0.2-1.2 Apr 22, 2024 07:55 AM [facility] BASIC METABOLIC PANEL (fasting) SERUM Specime n Type: SERUM No comment entered. Ordering Provider: BLAISE MARTINEZ Report Released Date/Time: Apr 29, 2023 10:22 AM Reporting Lab: [address] [address] Performing Lab: [address] [address] UREA NITROGEN 12 mg/dL 7-25 GLUCOSE 102 mg/dL H 65-100 SODIUM 137 mmol/L 135-145 POTASSIUM 4.7 mmol/L 3.5-5.0 CHLORIDE 101 mmol/L 100-110 CO2 28 meq/L 20-30 CALCIUM 9.7 mg/dL 8.5-10.2 CREATININE, Serum 0.74 mg/dL 0.50-1.40 eGFR(CKD-EPI 2020) >90 mL/min >60 Apr 22, 2024 07:55 AM [facility] CBC AND DIFF (AUTO) BLOOD Specimen Type: BLOO D No comment entered. Ordering Provider: BLAISE MARTINEZ Report Released Date/Time: Apr 29, 2023 10:22 AM Reporting Lab: [address] [address] Performing Lab: [address] [address] WBC 5.94 10*3/uL 4.50-11.00 RBC 4.26 10*6/uL [...] 0.2 0.0-0.7 IMMATURE GRAN, ABS 0.01 10*3/uL 0.00-0.0 6 NRBC % 0.0 0.0-0.0 NRBC, ABS 0.00 10*3/uL 0.00-0.00 Social History: Smoking Status (Most current) and Tobacco Use (All prior to encounter date) This section includes the most current, and the historical, smoking and tobacco- related health factors from the NH facility where the Encounter took place. Current Smoking Status This section includes the most current smoking, or tobacco-related health factor, from the NH facility where the Encounter took place. Date/Time Current Smoking Status Comment [facility] Apr 29, 2023 10:00 AM VA-TOBACCO USER EVERY DAY NH [facility] Tobacco Use History This section includes a history of the smoking, or tobacco-related health factors, that were collected on or before the date of the Encounter. The data comes from the NH facility where the Encounter took place. Date/Time Smoking Status/Tobac co Use Comment Facility Apr 29, 2023 10:00 AM VA-TOBACCO USE ADVICE [facility] Apr 29, 2023 10:00 AM VA-TOBACCO USE HYPNOTHERAPIST NO [place] [facility] [place] [facility] Apr 29, 2023 10:00 AM VA-TOBACCO USE MED NO [place] [facility] [place] [facility] Apr 29, 2023 10:00 AM VA-TOBACCO USE WI 30 MIN OF WAKEUP [facility] [place] [facility] Apr 29, 2023 10:00 AM VA-TOBACCO USER EVERY DAY [facility] [place] [facility] Jul 19, 2021 10:25 AM VA-TOBACCO DOESNT USE WI 30 MIN WAKEUP [place] [facility] [place] [facility] Jul 19, 2021 10:25 AM VA-TOBACCO USE 30 YEARS OR MORE [facility] [place] [facility] Jul 19, 2021 10:25 AM VA-TOBACCO USE ADVICE [place] [facility] [place] [facility] Jul 19, 2021 10:25 AM VA-TOBACCO USE HYPNOTHERAPIST NO [facility] [place] [facility] Jul 19, 2021 10:25 AM VA-TOBACCO USE MED NO [place] [facility] [place] [facility] Jul 19, 2021 10:25 AM VA-TOBACCO USER EVERY DAY [place] [facility] [place] [facility] May 09, 2020 08:00 AM VA-TOBACCO FORMER USER [place] [facility] [place] [facility] May 09, 2020 08:00 AM VA-TOBACCO QUIT < 1 YEAR [facility] [place] [facility] Mar 23, 2019 09:01 AM VA-TOBACCO FORMER USER [place] [facility] [place] [facility] Mar 23, 2019 09:01 AM VA-TOBACCO QUIT 5 TO < 15 YRS [facility] [place] [facility] Jan 19, 2018 08:24 AM VA-TOBACCO NEVER USED [place] [facility] [place] [facility] Jan 17, 2017 08:30 AM QUIT TOBACCO USE > 7 YEARS AGO [facility] [place] [facility] Jan 17, 2017 08:30 AM QUIT TOBACCO USE 1-7 YEARS AGO [facility] [place] [facility] Apr 19, 2016 01:06 PM QUIT TOBACCO USE 1-7 YEARS AGO [facility] [place] [facility] May 05, 2014 08:45 AM QUIT TOBACCO USE 1-7 YEARS AGO [facility] [place] [facility] Apr 08, 2013 08:46 AM QUIT TOBACCO USE 1-7 YEARS AGO . [facility] [place] [facility] Jan 10, 2012 08:23 AM CURRENT SMOKER [place] [facility] [place] [facility] Jan 10, 2012 08:23 AM V1-PT DECLINES REF TO TOBACCO CESS PRGM [facility] Jan 10, 2012 08:23 AM V1-PT DECLINES TOBACCO CESSATION MEDS [facility] Jan 10, 2012 08:23 AM V1-PT THINKING ABOUT QUIT TOBACCO USE [facility] Apr 25, 2011 08:23 AM V1-PT DECLINES REF TO TOBACCO CESS PRGM [facility] Apr 25, 2011 08:23 AM V1-PT DECLINES TOBACCO CESSATION MEDS [facility] Apr 25, 2011 08:23 AM V1-PT THINKING ABOUT QUIT TOBACCO USE [facility] Aug 16, 2010 09:12 AM CURRENT SMOKER 1 pk per wk [facility] Aug 16, 2010 09:12 AM V1-PT DECLINES REF TO TOBACCO CESS [facility] Aug 16, 2010 09:12 AM V1-PT DECLINES TOBACCO CESSATION MED[facility] Aug 16, 2010 09:12 AM V1-PT NOT INTERESTED IN QUIT TOBACCO USE [facility] Dec 28, 2009 08:21 AM V1-PT DECLINES REF TO TOBACCO CESS PRGM [facility] Dec 28, 2009 08:21 AM V1-PT THINKING ABOUT QUIT TOBACCO USE [facility] Mar 20, 2009 10:53 AM V1-PT DECLINES REF TO TOBACCO CESS PRGM [facility] Mar 20, 2009 10:53 AM V1-PT DECLINES TOBACCO CESSATION MEDS [facility] Mar 20, 2009 10:53 AM V1-PT NOT INTERESTED IN QUIT TOBACCO USE [facility] Mar 13, 2009 09:37 AM CURRENT SMOKER just when he is drinking. He can't stand it otherwise. [facility] Advance Directives: All historical and current Section Date Range: From patient's date of to the date document was created. This section includes ALL of a patient's completed or amended NH Advance and Rescinded Directives. The entries below indicate that a directive exists for the patient, but an actual copy is not included with this document. The data comes from all NH facilities. Date Advance Directives Provider Source Jun 08, 2014 ADVANCE DIRECTIVE TARYN VILLATORO [facility] CNT RL WSTRStephanie [facility] Encounter Notes: All associated encounter notes This section contains the clinical notes associated to the Encounter. Date/Time Encounter Note(s) Provider Source Apr 22, 2024 07:30 AM OPTOMETRY NOTE: LOCAL TITLE: OPTOMETRY NOTE STANDARD TITLE: OPTOMETRY NOTE DATE OF NOTE: APR 22, 2024@07:30 ENTRY DATE: APR 22, 2024@07:30:53 AUTHOR: ANDRIY ALAN EXP COSIGNER: URGENCY: STATUS: COMPLETED Active problems - Computerized Problem List is the source for the followin. Exposure to potentially hazardous substance ([facility] [id number]) 2. AF- Atrial Fibrillation ([facility] [id number]) 3. Abdominal aortic aneurysm 3.0 to 5.5 [...] if need be. Suicide Screen: C-SSRS Screening Webb-Suicide Severity Rating Scale (C-SSRS Screener) 1. Over [...] of active outpatient prescriptions dispensed from this NH (local) and dispensed from another NH or [facility] facility (remote) as well as inpatient orders [...] JLV. Allergies/ADRs (Tool #5) FACILITY ALLERGY/ADR -------- [facility] D CODEINE [facility] D MORPHINE [facility] [place] [facility] CODEINE [place] [facility] [place] [facility] MORPHINE Med Recon NoGlossary (Tool #1) INCLUDED IN THIS LIST: Alphabetical list of active outpatient prescriptions dispensed from this VA (local) and dispensed from another NH or DoD facility (remote) as well as inpatient orders (local pending and active), local clinic medications, locally documented non-VA medications, and local prescriptions that have or been discontinued in the past 90 days. Non-VA Meds Last Documented On: Mar 15, 2021 NOTE The display of VA prescriptions dispensed from another NH or [facility] facility (remote) is limited to active outpatient prescription entries matched to National Drug File at the originating site and may not include some items such as investigational drugs, compounds, etc. NOT INCLUDED IN THIS LIST: Medications self-entered by the patient into personal health records (i.e. [employer] are NOT included in this list. Non-VA medications documented outside this NH, remote inpatient orders (regardless of status) and remote clinic medications are NOT included in this list. The patient and provider must always discuss medications the patient is taking, regardless of where the medication was dispensed or obtained. OUTPT APIXABAN 5MG TAB (Status = Active) TAKE ONE TABLET BY MOUTH TWICE DAILY Rx# [id number] Last Released: 02/24/24 Qty/Days Supply: 180 Rx Expiration Date: 02/19/25 Refills Remainin OUTPT CARBOXYMETHYLCELLULOSE NA 0.5% OPH SOLN (Status = ) INSTILL 1 DROP INTO EACH EYE FOUR TIMES DAILY NEEDED FOR DRY EYE Rx# [id number] Last Released: 02/06/24 Qty/Days Supply: 45 Rx Expiration Date: 04/17/24 Refills Remainin Indication: FOR DRY EYE OUTPT DRONEDARONE 400MG TAB (Status = Active) TAKE ONE TABLET BY MOUTH TWICE DAILY Rx# [id number] Last Released: 03/20/24 Qty/Days Supply: 180 Rx Expiration Date: 10/30/24 Refills Remainin Non-VA FISH OIL 500MG DHA/EPA CAP,ORAL TAKE BY MOUTH OUTPT LISINOPRIL 10MG TAB (Status = Active) TAKE ONE TABLET BY MOUTH ONCE DAILY TO CONTROL BLOOD PRESSURE Rx# [id number] Last Released: 02/06/24 Qty/Days Supply: Rx Expiration Date: 10/30/24 Refills Remainin Non-VA MULTIVITAMIN/MINERALS CAP/TAB TAKE ONE TABLET BY MOUTH EVERY DAY OUTPT OMEPRAZOLE 20MG EC CAP (Status = Active) TAKE ONE CAPSULE BY MOUTH EVERY DAY Rx# [id number] Last Released: 02/06/24 Qty/Days Supply: Rx Expiration Date: 10/30/24 Refills Remainin OUTPT ROSUVASTATIN CA 40MG TAB (Status = Active) TAKE ONE-HALF TABLET BY MOUTH ONCE DAILY FOR CHOLESTEROL Rx# [id number] Last Released: 11/29/23 Qty/Days Supply: Rx Expiration [...] Dir: Prz2:0.00 Dir2: FITTING INFORMATION FPD:71 NPD: [place]:R: L: SEG HT:R: L: Tint:None Shade:None FRAME: BIG TWIST BLACK 60-18-155 Right Lens: PLASTIC SINGLE VISION PHOTOCHROMIC ABRAHAM 1.498 PLASTIC CR39 Left Lens: PLASTIC SINGLE VISION PHOTOCHROMIC ABRAHAM 1.498 PLASTIC CR39 Rx: NHM RX INFORMATION OD +4.25 -0.75 X45 Add:0.00 Pzm:0.00 Dir: Prz2:0.00 Dir2: OS +4.00 -0.50 X105 Add:0.00 Pzm:0.00 Dir: Prz2:0.00 Dir2: FITTING INFORMATION FPD:68 NPD:68 [place]:R: L: SEG HT:R: L: Tint:None Shade:None FRAME: KELLY BERNAL 58-18-155 Right Lens: PLASTIC SINGLE VISION CLEAR 1.498 PLASTIC CR39 Left Lens: PLASTIC SINGLE VISION CLEAR 1.498 PLASTIC CR39 /es/ Andriy Alan OD CHIEF OF OPTOMETRY Signed: 04/22/2024 07:53 ANDRIY ALAN CN[facility]
--- OUTSIDE RECORDS SUMMARY | 2024-06-08 08:09 | XMS_ITS | Encounter Summary ---
Author Name [facility] [place] Organization [facility] [place] [facility] [place] Address [address] [place] [id number] Care Team Providers Care Picture Copyist Name Role Phone BLAISE CASTRO Primary Care [...] SUPPLEMEN ROHITH MEDEX 2 Aug 10, 2018 [id number] [phone] Cresencio GAYTAN PATIENT [place] SUPPLEMEN ROHITH MEDEX 2 Aug 10, 2018 [id number] Cresencio GAY[place]AN [place] SUPPLEMEN ROHITH MEDEX 2 Aug 10, 2018 [id number] Cresencio GAYTAN PATIENT BCBS OF [facility] MEDICARE SUPPLEMEN ROHITH AGAWA [facility] OF Aug 10, 2018 [id number] Cresencio GAYTAN PATIENT EXPRESS SCRIPTS ([id number]) PRESCRIPT ION BCBSM A June 21, 2010 [facility] [id number] Cresencio GAYTAN PATIENT MEDICARE (WNR) MEDICARE (M) PART A Aug 10, 2018 PART A [id number] Cresencio GAYTAN PATIENT MEDICARE (WNR) MEDICARE (M) PART B Aug 10, 2018 PART B [id number] Cresencio GAYTAN PATIENT MEDICARE (WNR) MEDICARE (M) PART A Aug 10, 2018 PART A [id number] Cresencio GAYTAN PATIENT MEDICARE (WNR) MEDICARE (M) PART B Aug 10, 2018 PART B [id number] Cresencio GAYTAN PATIENT Selected Encounter This [...] 22, 2024 07:30 AM AMBULATORY - MEDICINE [facility] Social History: Smoking Status (Most current) [...] place. Date/Time Current Smoking Status Comment Facil vinod Apr 29, 2023 10:00 AM VA-TOBACCO USE [place] 30 MIN OF WAKEUP [facility] Tobacco Use History This section includes a history of the smoking, or tobacco-related health factors, that were collected on or before the date of the Encounter. The data comes from the MD facility where the Encounter took place. Date/Time Smoking Status/Tobac co Use Comment Facility Apr 29, 2023 10:00 AM VA-TOBACCO USE ADVICE [facility] [place] [facility] Apr 29, 2023 10:00 AM VA-TOBACCO USE 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 NO [facility] [place] [facility] Apr 29, 2023 10:00 AM VA-TOBACCO USE MED NO [facility] [place] [facility] Apr 29, 2023 10:00 AM VA-TOBACCO USE WI 30 MIN OF WAKEUP [place] [facility] [place] [facility] Apr 29, 2023 10:00 AM VA-TOBACCO USER EVERY DAY [facility] [facility] Jul 19, 2021 10:25 AM VA-TOBACCO DOESNT USE WI 30 MIN WAKEUP [place] [facility] [place] [facility] Jul 19, 2021 10:25 AM VA-TOBACCO USE 30 YEARS OR MORE MD [facility] [place] [facility] Jul 19, 2021 10:25 AM VA-TOBACCO USE ADVICE [place] [facility] [place] [facility] Jul 19, 2021 10:25 AM VA-TOBACCO USE SECURITY 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 NO [place] [facility] [facility] Jul 19, 2021 10:25 AM VA-TOBACCO USE MED NO [facility] [facility] Jul 19, 2021 10:25 AM VA-TOBACCO USER EVERY DAY [place] [facility] [facility] May 09, 2020 08:00 AM VA-TOBACCO FORMER USER [facility] [facility] May 09, 2020 08:00 AM VA-TOBACCO QUIT < 1 YEAR [facility] [place] [facility] Mar 23, 2019 09:01 AM VA-TOBACCO FORMER USER [facility] [place] [facility] Mar 23, 2019 09:01 AM VA-TOBACCO QUIT 5 TO < 15 YRS [facility] [place] [facility] Jan 19, 2018 08:24 AM VA-TOBACCO NEVER USED [facility] [facility] Jan 17, 2017 08:30 AM QUIT TOBACCO USE > 7 YEARS AGO [facility] [place] [facility] Jan 17, 2017 08:30 AM QUIT TOBACCO USE 1-7 YEARS AGO [facility] [place] [facility] Apr 19, 2016 01:06 PM QUIT TOBACCO USE 1-7 YEARS AGO [facility] [place] [facility] May 05, 2014 08:45 AM QUIT TOBACCO USE 1-7 YEARS AGO [facility] [place] [facility] Apr 08, 2013 08:46 AM QUIT TOBACCO USE 1-7 YEARS AGO . [facility] [place] [facility] Jan 10, 2012 08:23 AM CURRENT SMOKER [facility] [place] [facility] Jan 10, 2012 08:23 AM V1-PT DECLINES REF TO TOBACCO CESS PRGM [facility] [place] [facility] Jan 10, 2012 08:23 AM V1-PT DECLINES TOBACCO CESSATION MEDS [facility] [place] [facility] Jan 10, 2012 08:23 AM V1-PT THINKING ABOUT QUIT TOBACCO USE [facility] [place] [facility] Apr 25, 2011 08:23 AM V1-PT DECLINES REF TO TOBACCO CESS PRGM [facility] [place] [facility] Apr 25, 2011 08:23 AM V1-PT DECLINES TOBACCO CESSATION MEDS [facility] [place] [facility] Apr 25, 2011 08:23 AM V1-PT THINKING ABOUT QUIT TOBACCO USE [facility] [place] [facility] Aug 16, 2010 09:12 AM CURRENT SMOKER 1 pk per wk [facility] [place] [facility] Aug 16, 2010 09:12 AM V1-PT DECLINES REF TO TOBACCO CESS PRGM [place] [facility] [facility] Aug 16, 2010 09:12 AM V1-PT DECLINES TOBACCO CESSATION MEDS [facility] [place] [facility] Aug 16, 2010 09:12 AM V1-PT NOT INTERESTED IN QUIT TOBACCO USE [facility] [facility] Dec 28, 2009 08:21 AM V1-PT DECLINES REF TO TOBACCO CESS PRGM MD [facility] [facility] Dec 28, 2009 08:21 AM V1-PT THINKING ABOUT QUIT TOBACCO USE [facility] [facility] Mar 20, 2009 10:53 AM V1-PT DECLINES REF TO TOBACCO CESS PRGM [facility] [place] [facility] Mar 20, 2009 10:53 AM V1-PT DECLINES TOBACCO CESSATION MEDS [facility] Mar 20, 2009 10:53 AM V1-PT NOT INTERESTED IN QUIT TOBACCO USE [facility] Mar 13, 2009 09:37 AM CURRENT SMOKER just when he is drinking. He can't stand it otherwise. [facility] Advance Directives: All historical and [...] Provider Source Jun 08, 2014 ADVANCE DIRECTIVE IRVINGYUECYNTHIA Peralta [facility] Encounter Notes: All associated encounter notes This section contains the clinical notes associated to the Encounter. Date/Time Encounter Note(s) Provider Source Oct 27, 2023 08:43 AM MEDICATION MGT NOT E: LOCAL TITLE: MEDICATION RENEWAL STANDARD TITLE: MEDICATION MGT NOTE DATE OF NOTE: OCT 27, 2023@08:43 ENTRY DATE: OCT 27, 2023@08:43:39 AUTHOR: BRIAN FREEMAN EXP COSIGNER: URGENCY: STATUS: COMPLETED Formerly [facility] we have a re medication renewal for mailing please please renew if appropriate Active Outpatient Medications (including Supplies): Active Outpatient Medications Status = DRONEDARONE 400MG TAB 180 E> 10-20 0 90 LISINOPRIL 10MG TAB 90 E> 10-20 0 90 OMEPRAZOLE 20MG EC CAP 90 E> 10-20 0 90 /samir/ BRIAN FREEMAN DIET ASSISTANT Signed: 10/27/2023 08:45 Receipt Acknowledged By: 10/30/2023 17:49 /samir/ Blaise Castro PA-C STAFF PHYSICIAN CALCINE FURNACE TENDER BRIAN FREEMAN [facility]
--- OUTSIDE RECORDS SUMMARY | 2024-06-08 08:09 | XMS_ITS | Patient Health Record ---
[facility] Address [address] [place] [address] Care Team Providers Care Analysis Tester Name Role Phone Vijay Biggs Primary Care Provider Unav ailable Black, Karime Unavailable [phone] Allergies Allergen (clinical drug ingredient) Drug/Non Drug [...] X ray : Foot, left 3V 06/20/2011 [id number] NAIL, 1-5 11/19/2012 [id number] NAIL, 1-5 11/18/[id number] TENDON SHEATH/LIGAMENT 1 50,L9964-[id number] TENDON SHEATH/LIGAMENT 0 06/20/[id number] TENDON SHEATH/LIGAMENT 1 Insurance Providers Payer Name Payer Address Payer Phone Subscriber Number Group Number Insured Name Patient Relationship to Insured Coverage Start Date Coverage End Date [employer] [address] [place] [address] [id number] Marv Minaya Self - patient is the insured Medical (General) History Medical History History ICD Code neuropathy reflux mumps measles high blood pressure chicken pox back, hip, knee pain Arthritis Hypertension Heart Disease measles mumps chicken Pox bone implants and screws Surgical History Surgery Date(Month/Year) knee surgery neck surgery Hip replacement 09/2015 ablation 2013 Hospitalization History Reason Date(Month/Year) [facility], 3 days, CHF 04/2012
--- OUTSIDE RECORDS SUMMARY | 2024-06-08 08:09 | XMS_ITS | Encounter Summary ---
Author Name [facility] [place] [facility] [place] Address [address] [place] [id number] Care Team Providers Care Churner Name Role Phone BLAISE CASTRO Primary Care [...] Name Patient's Relationship to Policy [place] SUPPLEMEN ROHITH MEDEX 2 Aug 10, 2018 [id number] [phone] Cresencio GAYTAN PATIENT [place] SUPPLEMEN ROHITH MEDEX 2 Aug 10, 2018 [id number] [phone] Cresencio GAYTAN PATIENT [place] SUPPLEMEN ROHITH MEDEX 2 Aug 10, 2018 [id number] Cresencio GAYTAN PATIENT BCBS OF [facility] MEDICARE SUPPLEMEN ROHITH AGAWA [facility] OF Aug 10, 2018 [id number] Cresencio GAYTAN PATIENT [employer] ([id number]) PRESCRIPT ION BCBSM A June 21, 2010 [facility] [id number] Cresencio GAYTAN PATIENT MEDICARE (WNR) MEDICARE (M) PART A Aug 10, 2018 PART A [id number] Cresencio GAYTAN PATIENT MEDICARE (WNR) MEDICARE (M) PART B Aug 10, 2018 PART B [id number] Cresencio GAYTAN PATIENT MEDICARE (WNR) MEDICARE (M) PART A Aug 10, 2018 PART A [id number] Cresencio GAYTAN PATIENT MEDICARE (WNR) MEDICARE (M) PART B Aug 10, 2018 PART B [id number] Cresencio GAYTAN PATIENT Selected Encounter This section includes the information on record at [place] for the Encounter. Date/Time Encounter Type Encounter Description Reason Pro vider Source Feb 18, 2024 03:06 AM Outpatient Encounter ADMIN PAT ACTIVTIES (MASNONCT) IHE Encounter Template Text not used by [place] Plan of Treatment: Future Appointments (+ 6 [...] [place] treatment facilities. Appointment Date/Time Appointment Type Appointme nt Facility Name Apr 22, 2024 07:30 AM AMBULATORY - MEDICINE [facility] Apr 27, 2024 08:00 AM AMBULATORY - MEDICINE [facility] Social History: Smoking Status (Most current) and Tobacco Use (All prior to encounter date) This section includes the most current, and the historical, smoking and tobacco- related health factors from the [place] facility where the Encounter took place. Current Smoking Status This section includes the most current smoking, or tobacco-related health factor, from the [place] facility where the Encounter took place. Date/Time Current Smoking Status Comment Corrina brock Apr 29, 2023 10:00 AM [place]-TOBACCO USE [place] 30 MIN OF WAKEUP [facility] Tobacco Use History This section includes a history of the smoking, or tobacco-related health factors, that were collected on or before the date of the Encounter. The data comes from the [facility] where the Encounter took place. Date/Time Smoking Status/Tobac co Use Comment Facility Apr 29, 2023 10:00 AM VA-TOBACCO USE ADVICE [facility] Apr 29, 2023 10:00 AM VA-TOBACCO USE PHOTOGRAPHS CURATOR NO [facility] Apr 29, 2023 10:00 AM VA-TOBACCO USE MED NO [facility] Apr 29, 2023 10:00 AM VA-TOBACCO USE WI 30 MIN OF [place]KEUP [facility] Apr 29, 2023 10:00 AM VA-TOBACCO USER EVERY DAY [facility] Jul 19, 2021 10:25 AM VA-TOBACCO DOESNT USE WI 30 MIN WAKEUP [place] [facility] Jul 19, 2021 10:25 AM VA-TOBACCO USE 30 YEARS OR MORE [facility] Jul 19, 2021 10:25 AM VA-TOBACCO USE ADVICE [facility] Jul 19, 2021 10:25 AM VA-TOBACCO USE PHOTOGRAPHS CURATOR NO [facility] Jul 19, 2021 10:25 AM VA-TOBACCO USE MED NO [facility] Jul 19, 2021 10:25 AM VA-TOBACCO USER EVERY DAY [facility] May 09, 2020 08:00 AM VA-TOBACCO FORMER USER [facility] May 09, 2020 08:00 AM VA-TOBACCO QUIT < 1 YEAR [facility] Mar 23, 2019 09:01 AM VA-TOBACCO FORMER USER [facility] Mar 23, 2019 09:01 AM VA-TOBACCO QUIT 5 TO < 15 YRS [facility] Jan 19, 2018 08:24 AM VA-TOBACCO NEVER USED [facility] Jan 17, 2017 08:30 AM QUIT TOBACCO USE > 7 YEARS AGO [facility] Jan 17, 2017 08:30 AM QUIT TOBACCO USE 1-7 YEARS AGO [facility] Apr 19, 2016 01:06 PM QUIT TOBACCO USE 1-7 YEARS AGO [facility] May 05, 2014 08:45 AM QUIT TOBACCO USE 1-7 YEARS AGO [facility] Apr 08, 2013 08:46 AM QUIT TOBACCO USE 1-7 YEARS AGO . [facility] Jan 10, 2012 08:23 AM CURRENT SMOKER [facility] Jan 10, 2012 08:23 AM V1-PT DECLINES REF TO TOBACCO CESS PRGM [facility] Jan 10, 2012 08:23 AM V1-PT DECLINES TOBACCO CESSATION MEDS [facility] Jan 10, 2012 08:23 AM V1-PT THINKING ABOUT QUIT TOBACCO USE [facility] Apr 25, 2011 08:23 AM V1-PT DECLINES REF TO TOBACCO CESS PRGM [facility] Apr 25, 2011 08:23 AM V1-PT DECLINES TOBACCO CESSATION MEDS [facility] Apr 25, 2011 08:23 AM V1-PT THINKING ABOUT QUIT TOBACCO USE [facility] Aug 16, 2010 09:12 AM CURRENT SMOKER 1 pk per wk [facility] Aug 16, 2010 09:12 AM V1-PT DECLINES REF TO TOBACCO CESS PRGM [facility] Aug 16, 2010 09:12 AM V1-PT DECLINES TOBACCO CESSATION MEDS [facility] Aug 16, 2010 09:12 AM V1-PT NOT INTERESTED IN QUIT TOBACCO USE [facility] Dec 28, 2009 08:21 AM V1-PT DECLINES REF TO TOBACCO CESS PRGM [facility] Dec 28, 2009 08:21 AM V1-PT THINKING ABOUT QUIT TOBACCO USE [facility] Mar 20, 2009 10:53 AM V1-PT DECLINES REF TO TOBACCO CESS PRGM [facility] Mar 20, 2009 10:53 AM V1-PT DECLINES TOBACCO CESSATION MEDS [facility] Mar 20, 2009 10:53 AM V1-PT NOT INTERESTED IN QUIT TOBACCO USE [facility] Mar 13, 2009 09:37 AM CURRENT SMOKER just when he is drinking. He can't stand it otherwise. [facility] Advance Directives: All historical and current [...] Jun 08, 2014 ADVANCE DIRECTIVE IRVINGYUECYNTHIA Peralta [facility] Encounter Notes: All associated encounter notes [...] and has not picked up his medication. Schurzdonna millan is not well enough to drive to [facility] to picker and sorter load and unload medication from pharmacy window, and would like it mailed. reports understanding of consequences without medication and request having medication mailed /samir/ CAROLYNN GOMEZ LPN Signed: 02/24/2024 09:52 Receipt Acknowledged By: 02/25/2024 17:54 /es/ Blaise Castro PA-C STAFF PHYSICIAN OPERATING ROOM TECH 02/24/2024 12:33 /es/ NICOLE WREN, PHARMD,BCPS CLINICAL PHARMACY PRACTITIONER ========= --- Original Document --- 02/18/24 V1 PHARMACY CUSTOMER CARE MEDICATION RENEWAL: Date: Feb Division: [facility] referred by Pharmacy Call Center for medication renewal: Non-controlled/maintena nce medication Medications requested: [id number] APIXABAN 5MG TAB *Patient is out of medication and would appreciate expedited delivery if available. Please contact the Outpatient Pharmacy for assistance with shipment.* Defer to primary care provider To be mailed . Please review and renew if appropriate. *This note was generated by [facility] Pharm[facility] Customer Care. If you have any questions or need assistance, do not contact this author. Please refer all questions to your local, on-site pharmacy departments. /es/ JHON ESPOSITO CPhT Decision Unit Rn, [place]/Pharmacy Customer Care Signed: 02/18/2024 03:06 Receipt Acknowledged By: 02/18/2024 11:27 /es/ KINGSLEY COMBS, MSN, RN, CNL PRIMARY CARE TEAM NURSE for DOTTIE CHILEL 02/19/2024 10:31 /es/ Blaise Castro PA-C STAFF PHYSICIAN OPERATING ROOM TECH 02/19/2024 ADDENDUM STATUS: COMPLETED Apixaban ordered for window, not mail as we don't want him to miss any doses. He can pickup today or at latest, 02/19 when he comes for dental at 0830. Take immediately once he gets it. Please call him. /samir/ Blaise Castro PA-C STAFF PHYSICIAN OPERATING ROOM TECH Signed: 02/19/2024 10:30 Receipt Acknowledged By: 02/24/2024 08:03 /samir/ CAROLYNN DIALLO LPN, LPN [facility] Feb 19, 2024 10:29 AM ADDENDUM: LOCAL [...] him. /samir/ Blaise Castro PA-C STAFF PHYSICIAN OPERATING ROOM TECH Signed: 02/19/2024 10:30 Receipt Acknowledged By: 02/24/2024 08:03 /es/ CAROLYNN GOMEZ LPN ========= --- Original Document --- 02/18/24 V1 PHARMACY CUSTOMER CARE MEDICATION RENEWAL: Date: Feb Division: [facility] referred by Pharmacy Call Center for medication renewal: Non-controlled/maintena nce medication Medications requested: [id number] APIXABAN 5MG TAB *Patient is out of medication and would appreciate expedited delivery if available. Please contact the Outpatient Pharmacy for assistance with shipment.* Defer to primary care provider To be mailed . Please review and renew if appropriate. *This note was generated by [facility] [facility] Customer [facility]. If you have any questions or need assistance, do not contact this author. Please refer all questions to your local, on-site pharmacy departments. /samir/ JOHN ESPOSITO CPhT Decision Unit Rn, [place]/Pharmacy Customer Care Signed: 02/18/2024 03:06 Receipt Acknowledged By: 02/18/2024 11:27 /samir/ KINGSLEY COMBS, MSN, RN, CNL PRIMARY CARE TEAM NURSE for DOTTIE Cresencio GETACHEW 02/19/2024 10:31 /samir/ Blaise Castro PA-C STAFF PHYSICIAN OPERATING ROOM TECH BLAISE CASTRO [place] [facility] Feb 18, 2024 03:06 AM PHARMACY NOTE: LOCAL TITLE: V1 PHARMACY CUSTOMER CARE MEDICATION RENEWAL STANDARD TITLE: PHARMACY NOTE DATE OF NOTE: FEB 18, 2024@03:06 ENTRY DATE: FEB 18, 2024@03:06:29 AUTHOR: JOHN ESPOSITO EXP COSIGNER: URGENCY: STATUS: COMPLETED V1 PHARMACY CUSTOMER CARE MEDICATION RENEWAL Has ADDENDA Date: Feb Division: [facility] referred by Pharmacy Call Center for medication renewal: Non-controlled/maintena nce medication Medications requested: [id number] APIXABAN 5MG TAB *Patient is out of medication and would appreciate expedited delivery if available. Please contact the Outpatient Pharmacy for assistance with shipment.* Defer to primary care provider To be mailed . Please review and renew if appropriate. *This note was generated by [facility] [facility] Customer [facility]. If you have any questions or need assistance, do not contact this author. Please refer all questions to your local, on-site pharmacy departments. /samir/ JOHN ESPOSITO CPhT Decision Unit Rn, [place]/[facility] Customer Care Signed: 02/18/2024 03:06 Receipt Acknowledged By: 02/18/2024 11:27 /es/ KINGSLEY COMBS, MSN, RN, CNL PRIMARY CARE TEAM NURSE for DOTTIE CHILEL 02/19/2024 10:31 /es/ Blaise Castro PA-C STAFF PHYSICIAN OPERATING ROOM TECH 02/19/2024 ADDENDUM STATUS: COMPLETED Apixaban ordered for window, not mail as we don't want him to miss any doses. He can pickup today or at latest, 02/19 when he comes for dental at 0830. Take immediately once he gets it. Please call him. /samir/ Blaise Castro PA-C STAFF PHYSICIAN OPERATING ROOM TECH Signed: 02/19/2024 10:30 Receipt Acknowledged By: 02/24/2024 08:03 /es/ CAROLYNN GOMEZ LPN 02/24/2024 ADDENDUM STATUS: COMPLETED Spoke with who reports has been sick for the past few days with cold sx and fever, did not attend his dental appointment 02/20/24 and has not picked up his medication. yana is not well enough to drive to [facility] to picker and sorter load and unload medication from pharmacy window, and would like it mailed. reports understanding of consequences without medication and request having medication mailed /es/ CAROLYNN GOMEZ LPN Signed: 02/24/2024 09:52 Receipt Acknowledged By: * AWAITING SIGNATURE * BLAISE CASTRO * AWAITING SIGNATURE * NICOLE WREN ERIC C [facility]
--- OUTSIDE RECORDS SUMMARY | 2024-06-08 08:09 | XMS_ITS | Encounter Summary ---
Author Name [facility] [facility] [place] [facility] [place] Address [address] [place] [id number] Care Team Providers Care Beekeeper Farmer Name Role Phone BLAISE CASTRO Primary Care [...] Name Patient's Relationship to Policy [place] SUPPLEMEN ROHITH MEDEX 2 Aug 10, 2018 [id number] Cresencio GAYTAN PATIENT [place] SUPPLEMEN ROHITH MEDEX 2 Aug 10, 2018 [id number] Cresencio GAYTANHETAL PATIENT [place] SUPPLEMEN ROHITH MEDEX 2 Aug 10, 2018 [id number] Cresencio GAYTAN PATIENT BCBS OF [facility] MEDICARE SUPPLEMEN ROHITH AGAWA [facility] Aug 10, 2018 [id number] [phone] Cresencio GAYTAN PATIENT [employer] ([id number]) PRESCRIPT ION BCBSM A June 21, 2010 [facility] [id number] Cresencio GAYTAN PATIENT MEDICARE (WNR) MEDICARE (M) PART A Aug 10, 2018 PART A [id number] Cresencio GAYTAN PATIENT MEDICARE (WNR) MEDICARE (M) PART B Aug 10, 2018 PART B [id number] [phone] Cresencio GAYTAN PATIENT MEDICARE (WNR) MEDICARE (M) PART A Aug 10, 2018 PART A [id number] Cresencio GAYTAN PATIENT MEDICARE (WNR) MEDICARE (M) PART B Aug 10, 2018 PART B [id number] Cresencio GAYTAN PATIENT Selected Encounter This section includes the information on record at [place] for the Encounter. Date/Time Encounter Type Encounter Description Reason Provider Source Apr 27, 2024 08:00 AM OFFICE O/P EST MOD 30 MIN PRIMARY CARE/MEDICINE ICD-10-CM I48.91 Unspecified atrial fibrillation NAVA CASTRO [facility] Encounter Template Text not used by [place] Assessments - Encounter Diagnoses This section includes the primary and secondary diagnoses documented for the Encounter. Date/Time Primary/Secondary Diagnosis Diagnosis Name Provider Source May 12, 2024 10:00 AM PRIMARY Unspecified atrial fibrillation NAVA CASTRO [facility] [employer] [facility] Lab Results: +/- 30 days of the encounter This section includes the Chemistry and Hematology Lab Results on record with [place] for the patient. Radiology Reports and Pathology Reports are provided separately, in subsequent sections. Lab Results This section contains the Chemistry/Hematology Results that were resulted 30 days before or 30 daysafter the date of the Encounter. Date/Time Source Result Type Result - Unit Interpretation Reference Range Specimen Type Comment Apr 22, 2024 07:55 AM [facility] [employer] [facility] LIPID PANEL FASTING SERUM Specimen Type: SERUM No comment entered. Ordering Provider: KUNAL CASTRO Report Released Date/Time: Apr 29, 2023 10:22 AM Reporting Lab: [facility] [address] [facility] [address] Performing Lab: [facility] [address] [address] CHOLESTEROL 139 mg/dL TRIGLYCERIDE 107 mg/dL 0-150 LDL calculated 68 mg/dL 0-129 CHOL/HDL 2.8 HDL CHOLESTEROL 50 mg/dL 40-60 Apr 22, 2024 07:55 AM [facility] LIVER FUNCTION SERUM Specimen Type: SERUM No comment entered. Ordering Provider: BLAISE CASTRO Report Released Date/Time: Apr 29, 2023 10:22 AM Reporting Lab: [facility] [address] [facility] [address] Performing Lab: [facility] [address] [facility] [address] PROTEIN,TOTAL 7.7 g/dL 6.0-8.3 ALBUMIN 3.9 g/dL 3.5-5.0 ALKALINE PHOSPHATASE 78 U/L 40-150 AST 18 U/L 5-34 ALT 17 U/L BILIRUBIN, TOTAL 0.4 mg/dL 0.2-1.2 Apr 22, 2024 07:55 AM [facility] BASIC METABOLIC PANEL (fasting) SERUM Specime n Type: SERUM No comment entered. Ordering Provider: BLAISE CASTRO Report Released Date/Time: Apr 29, 2023 10:22 AM Reporting Lab: [facility] [address] [facility] [address] Performing Lab: [address] [address] UREA NITROGEN 12 mg/dL 7-25 GLUCOSE 102 mg/dL H 65-100 SODIUM 137 mmol/L 135-145 POTASSIUM 4.7 mmol/L 3.5-5.0 CHLORIDE 101 mmol/L 100-110 CO2 28 meq/L 20-30 CALCIUM 9.7 mg/dL 8.5-10.2 CREATININE, Serum 0.74 mg/dL 0.50-1.40 eGFR(CKD-EPI 2020) >90 mL/min >60 Apr 22, 2024 07:55 AM [facility] CBC AND DIFF (AUTO) BLOOD Specimen Type: BLOO D No comment entered. Ordering Provider: BLAISE CASTRO Report Released Date/Time: Apr 29, 2023 10:22 AM Reporting Lab: [facility] [address] [address] [address] Performing Lab: [facility] [address] [address] [address] WBC 5.94 10*3/uL 4.50-11.00 RBC 4.26 10*6/uL [...] Source Apr 27, 2024 08:17 AM 129/84 [facility] Apr 27, 2024 07:50 AM 98.1 64 140/80 16 97 0 74 277 36 [facility] Social History: Smoking Status (Most current) and Tobacco Use (All prior to encounter date) This section includes the most current, and the historical, smoking and tobacco- related health factors from the [place] facility where the Encounter took place. Current Smoking Status This section includes the most current smoking, or tobacco-related health factor, from the [place] facility where the Encounter took place. Date/Time Current Smoking Status Comment Corrina momo Apr 27, 2024 08:00 AM VA-TOBACCO NEVER U SED OTHER TYPE [facility] Tobacco Use History This section includes a history of the smoking, or tobacco-related health factors, that were collected on or before the date of the Encounter. The data comes from the [place] facility where the Encounter took place. Date/Time Smoking Status/Tobac co Use Comment [facility] Apr 27, 2024 08:00 AM VA-TOBACCO NEVER USED OTHER TYPE [place] [facility] [place] [facility] Apr 27, 2024 08:00 AM VA-TOBACCO SCREEN FOLLOW-UP [facility] Apr 27, 2024 08:00 AM VA-TOBACCO USE ADVICE [facility] Apr 27, 2024 08:00 AM VA-TOBACCO USE METAL TILE SETTER NO [place] [facility] [place] [facility] Apr 27, 2024 08:00 AM VA-TOBACCO USE EVERY DAY CIGARETTES [facility] [place] [facility] Apr 27, 2024 08:00 AM VA-TOBACCO USE MED YES [facility] [place] [facility] Apr 29, 2023 10:00 AM VA-TOBACCO USE 30 YEARS OR MORE [facility] [place] [facility] Apr 29, 2023 10:00 AM VA-TOBACCO USE ADVICE [place] [facility] [place] [facility] Apr 29, 2023 10:00 AM VA-TOBACCO USE METAL TILE SETTER NO [facility] [place] [facility] Apr 29, 2023 10:00 AM VA-TOBACCO USE MED NO [facility] [place] [facility] Apr 29, 2023 10:00 AM VA-TOBACCO USE WI 30 MIN OF WAKEUP [facility] [place] [facility] Apr 29, 2023 10:00 AM VA-TOBACCO USER EVERY DAY [facility] [place] [facility] Jul 19, 2021 10:25 AM VA-TOBACCO DOESNT USE WI 30 MIN WAKEUP [facility] [place] [facility] Jul 19, 2021 10:25 AM VA-TOBACCO USE 30 YEARS OR MORE [place] [facility] [place] [facility] Jul 19, 2021 10:25 AM VA-TOBACCO USE ADVICE [place] [facility] [place] [facility] Jul 19, 2021 10:25 AM VA-TOBACCO USE METAL TILE SETTER NO [place] [facility] [place] [facility] Jul 19, 2021 10:25 AM VA-TOBACCO USE MED NO [place] [facility] [place] [facility] Jul 19, 2021 10:25 AM VA-TOBACCO USER EVERY DAY [place] [facility] [place] [facility] May 09, 2020 08:00 AM VA-TOBACCO FORMER USER [place] [facility] [place] [facility] May 09, 2020 08:00 AM VA-TOBACCO QUIT < 1 YEAR [place] [facility] [place] [facility] Mar 23, 2019 09:01 AM VA-TOBACCO FORMER USER [place] [facility] [place] [facility] Mar 23, 2019 09:01 AM VA-TOBACCO QUIT 5 TO < 15 YRS [place] [facility] [place] [facility] Jan 19, 2018 08:24 AM VA-TOBACCO NEVER USED [place] [facility] [place] [facility] Jan 17, 2017 08:30 AM QUIT TOBACCO USE > 7 YEARS AGO [place] [facility] [place] [facility] Jan 17, 2017 08:30 AM QUIT TOBACCO USE 1-7 YEARS AGO [place] [facility] [place] [facility] Apr 19, 2016 01:06 PM QUIT TOBACCO USE 1-7 YEARS AGO [facility] [place] [facility] May 05, 2014 08:45 AM QUIT TOBACCO USE 1-7 YEARS AGO [facility] [place] [facility] Apr 08, 2013 08:46 AM QUIT TOBACCO USE 1-7 YEARS AGO . [place] [facility] [place] [facility] Jan 10, 2012 08:23 AM CURRENT SMOKER [place] [facility] [place] [facility] Jan 10, 2012 08:23 AM V1-PT DECLINES REF TO TOBACCO CESS PRGM [place] [facility] [place] [facility] Jan 10, 2012 08:23 AM V1-PT DECLINES TOBACCO CESSATION MEDS [place] [facility] [place] [facility] Jan 10, 2012 08:23 AM V1-PT THINKING ABOUT QUIT TOBACCO USE [facility] Apr 25, 2011 08:23 AM V1-PT DECLINES REF TO TOBACCO CESS PRGM [facility] Apr 25, 2011 08:23 AM V1-PT DECLINES TOBACCO CESSATION MEDS [facility] Apr 25, 2011 08:23 AM V1-PT THINKING ABOUT QUIT TOBACCO USE [facility] Aug 16, 2010 09:12 AM CURRENT SMOKER 1 pk per wk [facility] Aug 16, 2010 09:12 AM V1-PT DECLINES REF TO TOBACCO CESS PRGM [facility] Aug 16, 2010 09:12 AM V1-PT DECLINES TOBACCO CESSATION MEDS [facility] Aug 16, 2010 09:12 AM V1-PT NOT INTERESTED IN QUIT TOBACCO USE [facility] Dec 28, 2009 08:21 AM V1-PT DECLINES REF TO TOBACCO CESS PRGM [facility] Dec 28, 2009 08:21 AM V1-PT THINKING ABOUT QUIT TOBACCO USE [facility] Mar 20, 2009 10:53 AM V1-PT DECLINES REF TO TOBACCO CESS PRGM [facility] Mar 20, 2009 10:53 AM V1-PT DECLINES TOBACCO CESSATION MEDS [facility] Mar 20, 2009 10:53 AM V1-PT NOT INTERESTED IN QUIT TOBACCO USE [facility] Mar 13, 2009 09:37 AM CURRENT SMOKER just when he is drinking. He can't stand it otherwise. [facility] Advance Directives: All historical and current Section Date Range: From patient's date of to the date document was created. This section includes ALL of a patient's completed or amended [place] Advance and Rescinded Directives. The entries below indicate that a directive exists for the patient, but an actual copy is not included with this document. The data comes from all [place] facilities. Date Advance Directives Provider Source Jun 08, 2014 ADVANCE DIRECTIVE IRVINGKENRICKRenu Peralta [place] [facility] Encounter Notes: All associated encounter notes This section contains the clinical notes associated to the Encounter. Date/Time Encounter Note(s) Provider Source Apr 27, 2024 08:04 AM PHYSICIAN COPYRIGHT MANAGER NOTE: LOCAL TITLE: NISH NOTE STANDARD TITLE: PHYSICIAN COPYRIGHT MANAGER NOTE DATE OF NOTE: APR 27, 2024@08:04 ENTRY DATE: APR 27, 2024@08:04:40 AUTHOR: BLAISE CASTROIGNER: URGENCY: STATUS: COMPLETED CC/HPI/A/P: 68 year old MALE here in follow-up for; AAA, AF stopped Crestor due to hiVES decliens another statin, but will 'talk to Ingrid about' (after saying he won't try another one). FH of crc and phx of polyps, pending consult with GI, will send records. htn, at [facility] on acei ptsd, shares that he has been on NONVA Paxil for about 'six years, since [place] [facility] [place]. Review of systems: Patient reports no changes from [facility], in meds or any admissions. Active problems - Computerized Problem List is the source for the followin. Benign Neoplasm of Colon ([facility] [id number]) 2. Exposure to potentially hazardous substance ([facility] [id number]) Entered automatically through [facility] Problem List documentation program 3. AF- Atrial Fibrillation ([facility] [id number]) 4. Abdominal aortic aneurysm 3.0 to 5.5 centimeters in male 5. Family history of colorectal cancer 6. History of total hip arthroplasty Left THR, [facility]. 7. Hernia, Ventral 8. PTSD 9. Hand [...] an Advance Directive on file at this [facility]. No updates are needed at this time. The patient received education about Advance Directives and written notification of his/her rights. Follow Up Colonoscopy: Colonoscopy is due based on information available to this reminder. Patient has arranged or is choosing to arrange a Colonoscopy independent of and w/out assistance from this [place]. Tobacco Use Follow-Up: Patient was advised to [...] full rights to use it throughout the [place] system. PRIMARY SCREEN RESULT: The Primary Screen is NEGATIVE. The individual answered never to all forms of IPV above (i.e., answered never to all 5 items) The individual accepts education and/or resources: Other: EDUCATION: Other: /samir/ Blaise Castro PA-C STAFF PHYSICIAN COPYRIGHT MANAGER Signed: 04/27/2024 08:24 MICHELLEBLAISE Antoine [place] [facility] [place] [facility] Apr 27, 2024 07:53 AM PREVENTIVE MEDICINE NURSING NOTE: LOCAL TITLE: CLINICAL REMINDERS/NURSING STANDARD TITLE: PREVENTIVE MEDICINE NURSING NOTE DATE OF NOTE: APR 27, 2024@07:53 ENTRY DATE: APR 27, 2024@07:53:23 AUTHOR: CAROLYNN GOMEZ COSIGNER: URGENCY: STATUS: COMPLETED Follow Up Colonoscopy: Colonoscopy is due based on information available to this reminder. A colonoscopy is currently scheduled or in process of being scheduled. Comment: [facility] Depression Screening: Perform PHQ-2 A PHQ-2 [...] due to responses to other questions. 5. [place] numb or detached from people, activities, or your surroundings? Response not required due to responses to other questions. 6. [place] guilty or unable to stop blaming yourself [...] GOMEZ LPN Signed: 04/27/2024 07:56 KINA GOMEZ [place] [facility]
== END 2024-06-08 08:29 | disposition home or self-care (01) ==
LOC: HO.HMCC 08:03
PROVIDERS: PCP Nurse Practitioner Family; Visit Provider Nurse Practitioner Family
DX: I10 Essential (primary) hypertension (principal)

== ENCOUNTER → 2024-06-08 08:02 | Outpatient (BNVA) | payer MEDICARE, SELFPAY | PROVIDERS: PCP Nurse Practitioner Family; Visit Provider Nurse Practitioner Family | DX: I10 Essential (primary) hypertension (principal) | CPT/HCPCS: 96127; 99212 ==

== ENCOUNTER 2024-06-25 07:52 | Outpatient (REF) | payer MEDICARE, SELFPAY ==
--- NOTE | ~2024-06-25 | US_ITS ---
EXAMINATION: US ABDOMEN HISTORY: ABDOMINAL PAIN EPIGASTRIC TECHNIQUE: Real-time grayscale ultrasound imaging of the abdomen was performed and images were reviewed. COMPARISON: Correlation is made with a renal ultrasound dated 06/13/[address] of the abdomen dated 07/13/2023. FINDINGS: Liver: The right lobe of the liver measures 17.0 cm in size. The left lobe of the liver is poorly visualized. The liver demonstrates mildly increased echotexture, consistent with steatosis. No focal mass or intrahepatic biliary ductal dilatation is identified. There is normal hepatopedal flow in the portal vein. Gallbladder and biliary tree: The gallbladder is unremarkable, without evidence of calculi, wall thickening, or pericholecystic fluid. There is no sonographic Jeter sign. The common bile duct measures 7 mm in diameter. Kidneys: The right kidney measures 14.3 cm in length. The left kidney measures 13.2 cm in length. There is a 7 x 4 x 6 mm cyst at the lower pole of the left kidney. The kidneys are otherwise unremarkable, without evidence of solid masses, hydronephrosis, or calculi. Pancreas: The pancreas is obscured by bowel gas. Spleen: The spleen is normal in size and contour, measuring 12.5 cm in length. Abdominal aorta and inferior vena cava: The abdominal aorta is ectatic measuring up to 2.9 cm in diameter. There is no free fluid in the abdomen. US/US abdomen complete IMPRESSION: 1. Hepatomegaly and mild hepatic steatosis. 2. Ectatic abdominal aorta measuring up to 2.9 cm in diameter. Electronically signed by: Gamaliel Garcia MD 06/25/2024 08:48 AM EDT
--- OUTSIDE RECORDS SUMMARY | 2024-06-25 07:56 | XMS_ITS | Patient Health Record ---
Author Organization [facility] [employer] Address [address] [place] [address] Care Team Providers Care Statistical Engineer Name Role Phone Vijay Biggs Primary Care Provider Unav ailable Black, Karime Unavailable [phone] Allergies Allergen (clinical drug ingredient) Drug/Non Drug [...] X ray : Foot, left 3V 06/20/2011 [id number] NAIL, 1-5 11/19/2012 [id number] NAIL, 1-5 11/18/201319523,[id number] TENDON SHEATH/LIGAMENT 1 50,[id number] TENDON SHEATH/LIGAMENT 0 06/20/[id number],[id number] TENDON SHEATH/LIGAMENT 1 Insurance Providers Payer Name Payer Address Payer Phone Subscriber Number Group Number Insured Name Patient Relationship to Insured Coverage Start Date Coverage End Date [employer] [address] [place] [address] [id number] Marv Minaya Self - patient is the insured Medical (General) History Medical History History ICD Code neuropathy reflux mumps measles high blood pressure chicken pox back, hip, knee pain Arthritis Hypertension Heart Disease measles mumps chicken Pox bone implants and screws Surgical History Surgery Date(Month/Year) knee surgery neck surgery Hip replacement 09/2015 ablation 2013 Hospitalization History Reason Date(Month/Year) [facility], 3 days, CHF 04/2012
--- OUTSIDE RECORDS SUMMARY | 2024-06-25 07:56 | XMS_ITS | Patient Health Record ---
Author Organization [facility] Address [address] [place] [address] Care Team Providers Care Hydroelectric Station Operator Chief Name Role Phone JOANNABraxton MARGOT Primary Care Provider Gamaliel Haywood [phone] Allergies Allergen (clinical drug ingredient) Drug/Non Drug Allergy documented on EMR Reaction Allergy Type Onset Date Status morphine Morphine Sulfate Unknown Drug Allergy Active Reason For Referral No Information Medications Medication SIG (Take, Route, Frequency, Duration) Notes Start Date End Date Status Omeprazole 20 MG 1 capsule Orally Once a day Active Sertraline HCl 50 MG TAKE 1 TABLET BY MO UTH EVERY DAY Oral for 90 Active Eliquis 5 MG Orally twice a day Active Lisinopril 10 MG 1 tablet Orally Once a day Active Ibuprofen 200 MG 1 tablet with food o r milk as needed Orally as needed Not-T aking Multaq 400 MG TAKE 1 TABLET BY QI TH TWICE A DAY WITH FOOD Oral for 90 Active Multivitamin Adult Orally A ctive Immunizations Vaccine Route Administration Date Status Comme [...] Problem Status W/U Status Risk Notes Problem Colon cancer screening (078287667) Colon cancer screening (Z12.11) Active confirmed Problem 683455312 Encounter for screening for malignant neoplasm of colon (Z12.11) Active confirmed Problem 513513766 History of adenomatous polyp of colon (Z86.010) Active confirmed Problem Epigastric pain (49323946) Abdominal pain, epigastric (R10.13) Active confirmed Problem 796815871 Gastroesophageal reflux disease without esophagitis (K21.9) Active confirmed Problem 416128863727569 Preprocedural examination (Z01.818) Active confirmed Problem Gastroesophageal reflux disease (235103259) GERD (gastroesophageal reflux disease) (K21.9) Active confirmed Problem 289982561 Long-term (current) use of anticoagulants, INR goal 2.0-3.0 (Z79.01) Active confirmed Vital Signs Blood pressure diastolic 11 mm Hg 05/18/2024 Height 72.5 in 05/18/2024 Blood pressure systolic 111 mm Hg 05/18/2024 Weight 279 lbs 05/18/2024 BMI 37.32 kg/m2 05/18/2024 Procedures Procedure Date Ordered Date Performed Result Body Sit e UPPER GI ENDOSCOPY 05/18/2024 N/A COLONOSCOPY 05/18/2024 N/A Encounters Encounter Location Date Provider Diagnosis [facility] [address] [place] [phone] 05/18/2024 Gamaliel Abernathy Abdominal pain, epigastric R10.13 ; History of adenomatous polyp of colon Z86.010 ; Colon cancer screening Z12.11 and GERD (gastroesophageal reflux disease) K21.9 [facility] [address] [place] [phone] 03/16/2024 Gamaliel Abernathy [facility] [address] [place] [phone] 04/07/2024 Gamaliel Abernathy Assessments Encounter Date Diagnosis (ICD Code) Assessment Notes Treatment Notes Treatment Clinical Notes Section Notes 05/18/2024 History of adenomatous polyp of colon (ICD-10 - Z86.010) Overall, Marv appears well. In regard to his upper abdominal discomfort he appears clinically well without any significant findings on his exam, unintentional weight loss, nor any worrisome associated symptoms such as jaundice or anorexia. He is already on omeprazole with good relief of his reflux symptoms and therefore that makes something like peptic ulcer disease or significant gastritis less likely. Although his CT scan was negative in the ER, I did recommend we obtain an abdominal ultrasound to rule out symptomatic gallstones that may not have been seen on his CT scan. I have also recommended an upper endoscopy for further evaluation to rule out other possibilities such as the aforementioned ulcer disease or gastritis, even though that seems like it would be less likely on the daily omeprazole. I have also recommended a follow-up screening colonoscopy given the history of tubular adenomas, family history of colon cancer, and his last colonoscopy approaching the 5-year kristopher. We did review the rationale for this in regard to colon cancer prevention. Full consent has been obtained from him for both procedures, including risks of bleeding and perforation. The procedures will be done with monitored anesthesia care. He was given the below instructions regarding adjustment of his medications for the procedures. Marv was comfortable with this plan. Thank you again for allowing me to participate in Marv's care. I shall continue to keep you advised of his progress. 05/18/2024 Abdominal pain, epigastric (ICD-10 - R10.13) Overall, Marv appears well. In regard to his upper abdominal discomfort he appears clinically well without any significant findings on his exam, unintentional weight loss, nor any worrisome associated symptoms such as jaundice or anorexia. He is already on omeprazole with good relief of his reflux symptoms and therefore that makes something like peptic ulcer disease or significant gastritis less likely. Although his CT scan was negative in the ER, I did recommend we obtain an abdominal ultrasound to rule out symptomatic gallstones that may not have been seen on his CT scan. I have also recommended an upper endoscopy for further evaluation to rule out other possibilities such as the aforementioned ulcer disease or gastritis, even though that seems like it would be less likely on the daily omeprazole. I have also recommended a follow-up screening colonoscopy given the history of tubular adenomas, family history of colon cancer, and his last colonoscopy approaching the 5-year kristopher. We did review the rationale for this in regard to colon cancer prevention. Full consent has been obtained from him for both procedures, including risks of bleeding and perforation. The procedures will be done with monitored anesthesia care. He was given the below instructions regarding adjustment of his medications for the procedures. Marv was comfortable with this plan. Thank you again for allowing me to participate in Marv's care. I shall continue to keep you advised of his progress. 05/18/2024 Colon cancer screening (ICD-10 - Z12.11) Overall, Marv appears well. In regard to his upper abdominal discomfort he appears clinically well without any significant findings on his exam, unintentional weight loss, nor any worrisome associated symptoms such as jaundice or anorexia. He is already on omeprazole with good relief of his reflux symptoms and therefore that makes something like peptic ulcer disease or significant gastritis less likely. Although his CT scan was negative in the ER, I did recommend we obtain an abdominal ultrasound to rule out symptomatic gallstones that may not have been seen on his CT scan. I have also recommended an upper endoscopy for further evaluation to rule out other possibilities such as the aforementioned ulcer disease or gastritis, even though that seems like it would be less likely on the daily omeprazole. I have also recommended a follow-up screening colonoscopy given the history of tubular adenomas, family history of colon cancer, and his last colonoscopy approaching the 5-year kristopher. We did review the rationale for this in regard to colon cancer prevention. Full consent has been obtained from him for both procedures, including risks of bleeding and perforation. The procedures will be done with monitored anesthesia care. He was given the below instructions regarding adjustment of his medications for the procedures. Marv was comfortable with this plan. Thank you again for allowing me to participate in Marv's care. I shall continue to keep you advised of his progress. 05/18/2024 GERD (gastroesophage al reflux disease) (ICD-10 - K21.9) Overall, Marv appears well. In regard to his upper abdominal discomfort he appears clinically well without any significant findings on his exam, unintentional weight loss, nor any worrisome associated symptoms such as jaundice or anorexia. He is already on omeprazole with good relief of his reflux symptoms and therefore that makes something like peptic ulcer disease or significant gastritis less likely. Although his CT scan was negative in the ER, I did recommend we obtain an abdominal ultrasound to rule out symptomatic gallstones that may not have been seen on his CT scan. I have also recommended an upper endoscopy for further evaluation to rule out other possibilities such as the aforementioned ulcer disease or gastritis, even though that seems like it would be less likely on the daily omeprazole. I have also recommended a follow-up screening colonoscopy given the history of tubular adenomas, family history of colon cancer, and his last colonoscopy approaching the 5-year kristopher. We did review the rationale for this in regard to colon cancer prevention. Full consent has been obtained from him for both procedures, including risks of bleeding and perforation. The procedures will be done with monitored anesthesia care. He was given the below instructions regarding adjustment of his medications for the procedures. Marv was comfortable with this plan. Thank you again for allowing me to participate in Marv's care. I shall continue to keep you advised of his progress. Plan Of Treatment Pending Test Test Name Order Date UPPER GI ENDOSCOPY 05/18/2024 COLONOSCOPY 05/18/2024 US abdomen complete 05/18/2024 Future Test Test Name Order Date COLONOSCOPY 07/06/2014 COLONOSCOPY 09/23/2019 Next Appt Details Provider Name:Gamaliel Abernathy , 08/16/2024 11:10:00 AM, [address] [place] [address] , [place], [place], [phone], Insurance Providers Payer Name Payer Address Payer Phone Subscriber Number Group Number Insured Name Patient Relationship to Insured Coverage Start Date Coverage End Date MEDICARE OF [place] [address] [place] [address] [id number] MARV GAYTAN Self - patient is the insured 9 [employer] CLAIMS [address] [place] [address] [phone] [id number] MARV GAYTAN Self - patient is the insured Medical (General) History Medical History History ICD Code Colon polyps--tubular adenomas removed i n 1994, 2003, and 03/2009 A.fib--cardiac ablation--Dr. Palma; sees Khloe Schuster Denies LA,DM,CVA,Lung disease,renal dise ase Sleep apnea-uses a CPAP machine GERD-EGD in 2003 was normal Mild sigmoid diverticulosis and small internal hemorrhoids noted on previous colonoscopies Negative colonoscopy in 08/2014 Hypertension Negative colonoscopy in 11/2019 Depression Surgical History Surgery Date(Month/Year) Back surgery Umbilical hernia with mesh Left knee replacement - dr. Navarrete 08/10 Left hip replacement--Dr. Sutherland 08/2015 Sleep apnea surgery in the Right knee replacement 2022
--- OUTSIDE RECORDS SUMMARY | 2024-06-25 07:56 | XMS_ITS ---
Author Organization [facility] Address [address] [place] [address] Care Team Providers Care Dance Hall Host/Hostess Name Role Phone CAROLINARELI MARGOT Primary Care Provider Gamaliel Haywood [phone] REASON FOR VISIT book appt Encounters Encounter Location Date Provider Diagnosis [facility] [address] [place] [phone] 04/07/2024 Gamaliel Abernathy Plan Of Treatment Next Appt Details Provider Name:Gamaliel Abernathy , 08/16/2024 11:10:00 AM, [address] [place] [address], [phone], Progress Notes * SOFIA GAYTANDOB:[birth year] (68 yo M)Acc No.[id number]:04/07/2024 Patient:?SOFIA GAYTAN :1955???Age:68 Y???Sex:Male Address:[address] [place] [address], [place] [address] * true * Date:? Generated for Printi karen/Fahawa/eTransmitting on:?06/25/2024 07:56 AM EDT
--- OUTSIDE RECORDS SUMMARY | 2024-06-25 07:56 | XMS_ITS | Encounter Summary ---
Author Organization [facility] Address [address] [place] [address] Care Team Providers Care Contract Negotiation Manager Name Role Phone Wayne Huston MD Primary Care Provider [phone] Encounter Details Date Type Department Care Team (Late st Contact Info) Description 05/04/2024 Lab Requisition [facility] - Main Lab [address] [facility] [place] [id number] Michael Mullins, PA [address] [place], [place] [id number] Urinary tract infection, site not specified Social [...] Escherichia coli(A) JOSSY 05/06/2024 11:09 AM EDT [facility]) [facility] Urine Urine specimen obtained by [...] Escherichia coli Trimethoprim/Sulfamethoxazole JOSSY <=20 ug/ml: Susceptible [facility] MICROBIOLOGY - GENERAL SVETA AWA Final Result [facility] ([facility] LAB [address] [place] [address], documented in this encounter Visit Diagnoses Diagnosis Urinary tract infection, site not specified documented in this encounter Care Teams Contract Negotiation Manager Relationship Specialty Start Date End Date Wayne Huston MD [address] [place] [address] [address] [place] [address] PCP - General Internal Medicine 02/10/11 documented as of this encounter
--- OUTSIDE RECORDS SUMMARY | 2024-06-25 07:56 | XMS_ITS ---
Author Organization [facility] Address [address] [place] [address] Care Team Providers Care Electronic Calibration Technician Name Role Phone MARGOT SOSA Primary Care Provider Gamaliel Haywood [phone] REASON FOR VISIT gastritis Encounters Encounter Location Date Provider Diagnosis [facility] [address] [place] [phone] 04/06/2024 Gamaliel Abernathy Plan Of Treatment Next Appt Details Provider Name:Gamaliel Abernathy , 08/16/2024 11:10:00 AM, [address] [place] [address] , [place], [place], [phone], Progress Notes * SOFIA GAYTANDOB:[birth year] (68 yo M)Acc No.[id number]:04/06/2024 Progress Notes Patient:?LUCILA SOFIA Provider:?Gamaliel Abernathy MD :1955???Age:68 Y???Sex:Male Merrill e:04/06/2024 Address:[address] [place] [address] [id number] Pcp:MARGOT SOSA Subjective: * Chief Complaints: * [...] MD Date:? 025 Generated for Terrence jones/Gerardo/Escobar on:?06/25/2024 07:55 AM EDT
--- OUTSIDE RECORDS SUMMARY | 2024-06-25 07:56 | XMS_ITS | Continuity of Care Document ---
Author Name [facility] Organization [facility] Care Team Providers Care Medicine Worker Name Role Phone [facility] Unavailable Unavailable Problems Combined list of problems from Department of Defense and Veterans Affairs facilities. It does not include entries that were removed or entered in error. Problem Status Onset Date Problem Type Date of Resolution Comments Source History of total hip arthroplasty Active 016 Condition Apr 19, 2016 Entered By: STORM MARTINEZ AM Comment: Left THR, 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 [place] [facility] Obesity * (ICD-9-CM 278.00) Active Condition [facility] [place] [facility] PTSD Active [facility] [place] Sleep Apnea (ICD-9-CM 780.57/786.09) Active Condition [facility] Tinnitus * (ICD-9-CM 388.30) Active Condition [facility] [place] [facility] Urgency of urination (ICD-9-CM 788.63) Active Condition [facility] [place] [facility] Acute congestive heart failure Inactive Condition 09/06/2013 Sep 06, 2013 Entered By: STORM MARTINEZ AM Comment: one episode with onset of afib, since ablated. [facility] [place] [facility] Diagnosis: ICD-10-CM D12.6 Benign neoplasm of colon, unspecified Active Diagnosis [facility] [place] [place] [facility] Diagnosis: ICD-10-CM I48.91 Unspecified atrial fibrillation Active [facility] [place] [facility] Diagnosis: ICD-10-CM L71.8 Other rosacea Active Diagnosis [facility] [place] [facility] Diagnosis: ICD-10-CM Z77.29 Contact with and exposure to other hazardous substances Active Diagnosis [facility] [place] [facility] Diagnosis: ICD-10-CM K03.6 Deposits [accretions] on teeth Active Diagnosis [facility] [place] [facility] Diagnosis: ICD-10-CM Z46.0 Encounter for fit/adjst of spectacles and contact lenses Active [facility] Medications Combined list of outpatient medications [...] PRIOR TO DENTAL APPOINTM ENT ORAL 05/25/2023 [id number] SMITH ALVAREZ 2023 20 [facility] APIXABAN 5MG TAB TAKE ONE TABLET BY MOUTH TWICE DAILY ORAL ACTIVE 02/19/2025 [id number] BLAISE MARTINEZ 2024 180 [facility] APIXABAN 5MG TAB TAKE ONE TABLET BY MOUTH TWICE DAILY ORAL DISCONT INUED 11/20/2023 [id number] BLAISE MARTINEZ 2022 180 [facility] CARBOXYMETH YLCELLULOSE NA 0.5% SOLN,OPH INSTILL 1 DROP INTO EACH EYE FOUR TIMES DAILY NEEDED FOR DRY EYE OPHTHA LMIC 04/17/2024 [id number] Cresencio ALAN 2023 45 [facility] DRONEDARONE 400MG TAB TAKE ONE TABLET BY MOUTH TWICE DAILY ORAL ACTIVE 10/30/2024 [id number] BLAISE MARTINEZ 2023 180 [facility] [place] DRONEDARONE 400MG TAB TAKE ONE TABLET BY MOUTH TWICE DAILY ORAL DISCONT INUED 10/21/2023 [id number] RA JAMES HENRIQUEZ 2022 180 [facility] LISINOPRIL 10MG TAB TAKE ONE TABLET BY MOUTH ONCE DAILY TO CONTROL BLOOD PRESSURE ORAL ACTIVE 10/30/2024 [id number] BLAISE MARTINEZ 2023 90 [facility] LISINOPRIL 10MG TAB TAKE ONE TABLET BY MOUTH ONCE DAILY TO CONTROL BLOOD PRESSURE ORAL DISCONT INUED 10/21/2023 [id number] RA JAMES HENRIQUEZ 2022 90 [facility] MAGNESIUM OXIDE TAB TAKE BY MOUTH ORAL ACTIVE BLAISE MARTINEZ 2024 [facility] MULTIVITAMI NS W/MINERALS TAB TAKE ONE TABLET BY MOUTH EVERY DAY ORAL ACTIVE CANDY GRIGSBY NNE O 2009 [facility] NICOTINE POLACRILEX 2MG TAB,CHEWG GUM CHEW 1 PIECE BY MOUTH EVERY 2 HOURS NEEDED FOR NICOTINE REPLACEM ENT ORAL ACTIVE 04/28/2025 [id number] MICHELLEBLAISE Antoine [address] [facility] OMEPRAZOLE 20MG CAP,EC TAKE ONE CAPSULE BY MOUTH EVERY DAY ORAL ACTIVE 10/30/2024 [id number] BLAISE MARTINEZ [address] [facility] OMEPRAZOLE 20MG CAP,EC TAKE ONE CAPSULE BY MOUTH EVERY DAY ORAL DISCONT INUED 10/21/2023 [id number] RA JAMES HENRIQUEZ 2022 90 [facility] ROSUVASTATI N CA 40MG TAB TAKE ONE-HALF TABLET BY MOUTH ONCE DAILY FOR CHOLESTE ROL ORAL DISCONT INUED BY PROVIDE R 09/18/2024 [id number] BLAISE MARTINEZ 2023 45 [facility] SERTRALINE HCL 100MG TAB TAKE 1.5 TABLETS BY MOUTH ONCE DAILY ORAL ACTIVE BLAISE MARTINEZ 2024 [facility] Allergies, Adverse Reactions, Alerts Combined list of allergies from Department of Defense and Veterans Affairs facilities. It does not include entries that were removed or entered in error. Substance Category Reaction Severity Reaction type Status Date Reported Comments Source CODEINE Propensity to adverse reactions to drug (finding) active 1 [facility] MORPHINE Propensity to adverse reactions to drug (finding) active 1 [facility] ROSUVASTATIN Propensity to adverse reactions to drug (finding) Itching MODERATE active 5 [facility] Immunizations Combined list of available immunizations from the Department of Defense and Veterans Affairs facilities. Immunization Series Date Given Administered By Site Reaction Lot Number CVX Code Drug Manager Civil Status Comments Source INFLUENZA, UNSPECIFIED FORMULATION 2022 88 complet ed Booster for Series, HISTORICA L INFORMATI ON - FROM OTHER PROVIDER, [facility] PNEUMOCOCCAL CONJUGATE PCV20, POLYSACCHARID E LOX557 CONJUGATE, ADJUVANT, PF 2021 216 complet ed [...] DOSE 2 2020 207 complet ed MOD; [id number]; 1 [facility] COVID-19 (MODERNA), MRNA, LNP-S, PF, 100 MCG/0.5 ML DOSE 1 2020 207 complet ed MOD; [id number]; 1 [facility] [...] Lab: [facility] [place] [facility] [address] [facility] [address] Performing Lab: [facility] [place] [facility] [address] [facility] [address] [facility] [place] [facility] LIPID PANEL FASTING TRIGLYCERID E [MASS/VOLUM E] IN SERUM OR PLASMA 107 mg/dL 0 - 150 04/22 Specimen Type: SERUM No comment entered. Ordering Provider: Bo MARTINEZ Report Released Date/Time: Apr 29, 2023 10:22 AM Reporting Lab: [facility] [place] [facility] [address] [facility] [address] Performing Lab: [facility] [place] [facility] [address] [facility] [address] [facility] [place] [facility] LIPID PANEL FASTING CHOLESTEROL IN LDL [MASS/VOLUM E] IN SERUM OR PLASMA BY CALCULATION 68 mg/dL 0 - 129 04/22 Specimen Type: SERUM No comment entered. Ordering Provider: Bo MARTINEZ Report Released Date/Time: Apr 29, 2023 10:22 AM Reporting Lab: [facility] [place] [facility] [address] [facility] [address] Performing Lab: [facility] [place] [facility] [address] [facility] [address] [facility] [place] [facility] LIPID PANEL FASTING CHOLESTEROL .TOTAL/CHOL ESTEROL IN HDL [MASS RATIO] IN SERUM OR PLASMA 2.8 04/22 Specimen Type: SERUM No comment entered. Ordering Provider: Bo MARTINEZ Report Released Date/Time: Apr 29, 2023 10:22 AM Reporting Lab: [facility] [place] [facility] [address] [facility] [address] Performing Lab: [facility] [place] [facility] [address] [facility] [address] [facility] [place] [facility] LIPID PANEL FASTING CHOLESTEROL IN HDL [MASS/VOLUM E] IN SERUM OR PLASMA 50 mg/dL 40 - 60 04/22 Specimen Type: SERUM No comment entered. Ordering Provider: Bo MARTINEZ Report Released Date/Time: Apr 29, 2023 10:22 AM Reporting Lab: [facility] [place] [facility] [address] [facility] [address] Performing Lab: [facility] [place] [facility] [address] [facility] [address] [facility] [place] [facility] LIVER FUNCTION PROTEIN [MASS/VOLUM E] IN SERUM OR PLASMA 7.7 g/dL 6.0 - 8.3 04/22 Specimen Type: SERUM No comment entered. Ordering Provider: Bo MARTINEZ Report Released Date/Time: Apr 29, 2023 10:22 AM Reporting Lab: [facility] [place] [facility] [address] [facility] [address] Performing Lab: [facility] [place] [facility] [address] [facility] [address] [facility] [place] [facility] LIVER FUNCTION ALBUMIN [MASS/VOLUM E] IN SERUM OR PLASMA 3.9 g/dL 3.5 - 5.0 04/22 Specimen Type: SERUM No comment entered. Ordering Provider: Bo MARTINEZ Report Released Date/Time: Apr 29, 2023 10:22 AM Reporting Lab: [facility] [place] [facility] [address] [facility] [address] Performing Lab: [facility] [place] [facility] [address] [facility] [address] [facility] [place] [facility] LIVER FUNCTION ALKALINE PHOSPHATASE [ENZYMATIC ACTIVITY/VO LUME] IN SERUM OR PLASMA 78 U/L 40 - 150 04/22 Specimen Type: SERUM No comment entered. Ordering Provider: Bo MARTINEZ Report Released Date/Time: Apr 29, 2023 10:22 AM Reporting Lab: [facility] [place] [facility] [address] [facility] [address] Performing Lab: [facility] [place] [facility] [address] [facility] [address] [facility] [place] [facility] LIVER FUNCTION ASPARTATE AMINOTRANSF ERASE [ENZYMATIC ACTIVITY/VO LUME] IN SERUM OR PLASMA 18 U/L 5 - 34 04/22 Specimen Type: SERUM No comment entered. Ordering Provider: Bo MARTINEZ Report Released Date/Time: Apr 29, 2023 10:22 AM Reporting Lab: [facility] [place] [facility] [address] [facility] [address] Performing Lab: [facility] [place] [facility] [address] [facility] [address] [facility] [place] [facility] LIVER FUNCTION ALANINE AMINOTRANSF ERASE [ENZYMATIC ACTIVITY/VO LUME] IN SERUM OR PLASMA 17 U/L 04/22 Specimen Type: SERUM No comment entered. Ordering Provider: Bo MARTINEZ Report Released Date/Time: Apr 29, 2023 10:22 AM Reporting Lab: [facility] [place] [facility] [address] [facility] [address] Performing Lab: [facility] [place] [facility] [address] [facility] [address] [facility] [place] [facility] LIVER FUNCTION BILIRUBIN.T OTAL [MASS/VOLUM E] IN SERUM OR PLASMA 0.4 mg/dL 0.2 - 1.2 04/22 Specimen Type: SERUM No comment entered. Ordering Provider: Bo MARTINEZ Report Released Date/Time: Apr 29, 2023 10:22 AM Reporting Lab: [facility] [place] [facility] [address] [facility] [address] Performing Lab: [facility] [place] [facility] [address] [facility] [address] [facility] [place] [facility] BASIC METABOLIC PANEL (fasting) UREA NITROGEN [MASS/VOLUM E] IN SERUM OR PLASMA 12 mg/dL 7 - 25 04/22 Specimen Type: SERUM No comment entered. Ordering Provider: Bo MARTINEZ Report Released Date/Time: Apr 29, 2023 10:22 AM Reporting Lab: [facility] [place] [facility] [address] [facility] [address] Performing Lab: [facility] [place] [facility] [address] [facility] [address] [facility] [place] [facility] BASIC METABOLIC PANEL (fasting) GLUCOSE [MASS/VOLUM E] IN SERUM OR PLASMA 102 mg/dL 65 - 100 04/22 H Specimen Type: SERUM No comment entered. Ordering Provider: Bo MARTINEZ Report Released Date/Time: Apr 29, 2023 10:22 AM Reporting Lab: [facility] [place] [facility] [address] [facility] [address] Performing Lab: [facility] [place] [facility] [address] [facility] [address] [facility] [place] [facility] BASIC METABOLIC PANEL (fasting) SODIUM [MOLES/VOLU ME] IN SERUM OR PLASMA 137 mmol/L 135 - 145 04/22 Specimen Type: SERUM No comment entered. Ordering Provider: Bo MARTINEZ Report Released Date/Time: Apr 29, 2023 10:22 AM Reporting Lab: [facility] [place] [facility] [address] [facility] [address] Performing Lab: [facility] [place] [facility] [address] [facility] [address] [facility] [place] [facility] BASIC METABOLIC PANEL (fasting) POTASSIUM [MOLES/VOLU ME] IN SERUM OR PLASMA 4.7 mmol/L 3.5 - 5.0 04/22 Specimen Type: SERUM No comment entered. Ordering Provider: Bo MARTINEZ Report Released Date/Time: Apr 29, 2023 10:22 AM Reporting Lab: [facility] [place] [facility] [address] [facility] [address] Performing Lab: [facility] [address] [address] [facility] [place] [facility] BASIC METABOLIC PANEL (fasting) CHLORIDE [MOLES/VOLU ME] IN SERUM OR PLASMA 101 mmol/L 100 - 110 04/22 Specimen Type: SERUM No comment entered. Ordering Provider: Bo MARTINEZ Report Released Date/Time: Apr 29, 2023 10:22 AM Reporting Lab: [facility] [place] [address] [address] Performing Lab: [facility] [place] [address] [address] [facility]ITALUSE [facility] BASIC METABOLIC PANEL (fasting) CARBON DIOXIDE, TOTAL [MOLES/VOLU ME] IN SERUM OR PLASMA 28 meq/L 20 - 30 04/22 Specimen Type: SERUM No comment entered. Ordering Provider: Bo MARTINEZ Report Released Date/Time: Apr 29, 2023 10:22 AM Reporting Lab: [facility] [place] [address] [address] Performing Lab: [facility] [place] [address] [address] [facility] [place] [facility] BASIC METABOLIC PANEL (fasting) CALCIUM [MASS/VOLUM E] IN SERUM OR PLASMA 9.7 mg/dL 8.5 - 10.2 04/22 Specimen Type: SERUM No comment entered. Ordering Provider: Bo MARTINEZ Report Released Date/Time: Apr 29, 2023 10:22 AM Reporting Lab: [facility] [place] [address] [address] Performing Lab[facility] [place] [facility] [address] [facility] [address] [facility]ITALUSE [facility] BASIC METABOLIC PANEL (fasting) CREATININE [MASS/VOLUM E] IN SERUM OR PLASMA 0.74 mg/dL 0.50 - 1.40 04/22 Specimen Type: SERUM No comment entered. Ordering Provider: Bo MARTINEZ Report Released Date/Time: Apr 29, 2023 10:22 AM Reporting Lab: [facility]N [facility] [address] [facility] [address] Performing Lab: [facility]N [facility]ITALUSE[address] [address] [facility]ITALUSE [facility] BASIC METABOLIC PANEL (fasting) GLOMERULAR FILTRATION RATE/1.73 SQ M.PREDICTED [VOLUME RATE/AREA] IN SERUM, PLASMA OR BLOOD BY CREATININE- BASED FORMULA (CKD-EPI 2020) >90mL/ min 60 04/22 Specimen Type: SERUM No comment entered. Ordering Provider: Bo MARTINEZ Report Released Date/Time: Apr 29, 2023 10:22 AM Reporting Lab: [facility]ITALUSE[address] [address] Performing Lab: [facility]N [facility]ITALUSE[address] [address] [facility] CBC AND DIFF (AUTO) LEUKOCYTES [#/VOLUME] IN BLOOD BY AUTOMATED COUNT 5.94 10*3/u L 4.50 - 11.00 04/22 Specimen Type: BLOOD No comment entered. Ordering Provider: Bo MARTINEZ Report Released Date/Time: Apr 29, 2023 10:22 AM Reporting Lab: [facility]ITALUSETS [address] [address] Performing Lab: [facility]N [facility]ITALUSE[address] [address] [facility]ITALRATMORE COMMUNITY H[facility]PITALN [facility] CBC AND DIFF (AUTO) ERYTHROCYTE S [#/VOLUME] IN BLOOD BY AUTOMATED COUNT 4.26 10*6/u L 4.23 - 5.66 04/22 Specimen Type: BLOOD No comment entered. Ordering Provider: Bo MARTINEZ Report Released Date/Time: Apr 29, 2023 10:22 AM Reporting Lab: [facility] [place] [facility] [address] [facility] [address] Performing Lab: [facility] [place] [facility] [address] [facility] [address] [facility] [place] [facility] CBC AND DIFF (AUTO) HEMOGLOBIN [MASS/VOLUM E] IN BLOOD 13.3 g/dL 12.8 - 17 04/22 Specimen Type: BLOOD No comment entered. Ordering Provider: Bo MARTINEZ Report Released Date/Time: Apr 29, 2023 10:22 AM Reporting Lab: [facility] [place] [facility] [address] [facility] [address] Performing Lab: [facility] [place] [facility] [address] [facility] [address] [facility] [place] [facility] CBC AND DIFF (AUTO) HEMATOCRIT [VOLUME FRACTION] OF BLOOD BY AUTOMATED COUNT 38.6 39.2 - 50.4 04/22 L Specimen Type: BLOOD No comment entered. Ordering Provider: Bo MARTINEZ Report Released Date/Time: Apr 29, 2023 10:22 AM Reporting Lab: [facility] [place] [facility] [address] [facility] [address] Performing Lab: [facility] [place] [facility] [address] [facility] [address] [facility] [place] [facility] CBC AND DIFF (AUTO) MCV [ENTITIC VOLUME] BY AUTOMATED COUNT 90.6 fL 82 - 99 04/22 Specimen Type: BLOOD No comment entered. Ordering Provider: Bo MARTINEZ Report Released Date/Time: Apr 29, 2023 10:22 AM Reporting Lab: [facility] [place] [facility] [address] [facility] [address] Performing Lab: [facility] [place] [facility] [address] [facility] [address] [facility] CBC AND DIFF (AUTO) MCHC [MASS/VOLUM E] BY AUTOMATED COUNT 34.5 g/dL 30.8 - 35.1 04/22 Specimen Type: BLOOD No comment entered. Ordering Provider: Bo MARTINEZ Report Released Date/Time: Apr 29, 2023 10:22 AM Reporting Lab: [facility] [place] [facility] [address] [facility] [address] Performing Lab: [facility] [place] [facility] [address] [facility] [address] [facility] CBC AND DIFF (AUTO) PLATELETS [#/VOLUME] IN BLOOD BY AUTOMATED COUNT 237 10*3/u L 140 - 360 04/22 Specimen Type: BLOOD No comment entered. Ordering Provider: Bo MARTINEZ Report Released Date/Time: Apr 29, 2023 10:22 AM Reporting Lab: [facility] [place] [facility] [address] [facility] [address] Performing Lab: [facility] [place] [facility] [address] [facility] [address] [facility] CBC AND DIFF (AUTO) ERYTHROCYTE DISTRIBUTIO N WIDTH [RATIO] BY AUTOMATED COUNT 13.5 12.0 - 16.0 04/22 Specimen Type: BLOOD No comment entered. Ordering Provider: Bo MARTINEZ Report Released Date/Time: Apr 29, 2023 10:22 AM Reporting Lab: [facility] [address] [facility] [address] Performing Lab: [facility] [place] [address] [facility] [address] [facility] CBC AND DIFF (AUTO) MONOCYTES [#/VOLUME] IN BLOOD BY AUTOMATED COUNT 0.53 10*3/u L 0.30 - 1.10 04/22 Specimen Type: BLOOD No comment entered. Ordering Provider: Bo MARTINEZ Report Released Date/Time: Apr 29, 2023 10:22 AM Reporting Lab: [facility] [place] [address] [facility] [address] Performing Lab: [facility] [place] [facility] [address] [facility] [address] [facility] CBC AND DIFF (AUTO) MCH [ENTITIC MASS] BY AUTOMATED COUNT 31.2 pg 26.2 - 32.6 04/22 Specimen Type: BLOOD No comment entered. Ordering Provider: Bo MARTINEZ Report Released Date/Time: Apr 29, 2023 10:22 AM Reporting Lab: [facility] [place] [address] [facility] [address] Performing Lab: [facility] [address] [facility] [address] [facility] CBC AND DIFF (AUTO) NEUTROPHILS /100 LEUKOCYTES IN BLOOD BY AUTOMATED COUNT 67.4 43.7 - 75.8 04/22 Specimen Type: BLOOD No comment entered. Ordering Provider: Bo MARTINEZ Report Released Date/Time: Apr 29, 2023 10:22 AM Reporting Lab: [facility] [address] [facility] [address] Performing Lab: [facility] [address] [facility] [address] [facility] CBC AND DIFF (AUTO) LYMPHOCYTES /100 LEUKOCYTES IN BLOOD BY AUTOMATED COUNT 20.5 14.0 - 42.3 04/22 Specimen Type: BLOOD No comment entered. Ordering Provider: oB MARTINEZ Report Released Date/Time: Apr 29, 2023 10:22 AM Reporting Lab: [facility] [address] [facility] [address] Performing Lab: [facility] [address] [facility] [address] [facility] CBC AND DIFF (AUTO) MONOCYTES/1 00 LEUKOCYTES IN BLOOD BY AUTOMATED COUNT 8.9 5.1 - 13.7 04/22 Specimen Type: BLOOD No comment entered. Ordering Provider: Bo MARTINEZ Report Released Date/Time: Apr 29, 2023 10:22 AM Reporting Lab: [facility] [address] [facility] [address] Performing Lab: [facility] [address] [facility] [address] [facility] CBC AND DIFF (AUTO) EOSINOPHILS /100 LEUKOCYTES IN BLOOD BY AUTOMATED COUNT 2.2 0.4 - 6.8 04/22 Specimen Type: BLOOD No comment entered. Ordering Provider: Bo MARTINEZ Report Released Date/Time: Apr 29, 2023 10:22 AM Reporting Lab: [facility] [address] [facility] [address] Performing Lab: [facility] [place] [facility] [address] [facility] [address] [facility] CBC AND DIFF (AUTO) BASOPHILS/1 00 LEUKOCYTES IN BLOOD BY AUTOMATED COUNT 0.8 0.1 - 2.0 04/22 Specimen Type: BLOOD No comment entered. Ordering Provider: Bo MARTINEZ Report Released Date/Time: Apr 29, 2023 10:22 AM Reporting Lab: [facility] [address] [facility] [address] Performing Lab: [facility] [place] [facility] [address] [facility] [address] [facility] CBC AND DIFF (AUTO) NEUTROPHILS [#/VOLUME] IN BLOOD BY AUTOMATED COUNT 4.00 10*3/u L 2.20 - 7.60 04/22 Specimen Type: BLOOD No comment entered. Ordering Provider: Bo MARTINEZ Report Released Date/Time: Apr 29, 2023 10:22 AM Reporting Lab: [facility] [address] [facility] [address] Performing Lab: [facility] [place] [facility] [address] [facility] [address] [facility] CBC AND DIFF (AUTO) LYMPHOCYTES [#/VOLUME] IN BLOOD BY AUTOMATED COUNT 1.22 10*3/u L 1.00 - 3.20 04/22 Specimen Type: BLOOD No comment entered. Ordering Provider: Bo MARTINEZ Report Released Date/Time: Apr 29, 2023 10:22 AM Reporting Lab: [facility] [address] [facility] [address] Performing Lab: [facility] [address] [facility] [address] [facility] CBC AND DIFF (AUTO) EOSINOPHILS [#/VOLUME] IN BLOOD BY AUTOMATED COUNT 0.13 10*3/u L 0.03 - 0.44 04/22 Specimen Type: BLOOD No comment entered. Ordering Provider: Bo MARTINEZ Report Released Date/Time: Apr 29, 2023 10:22 AM Reporting Lab: [facility] [place] [facility] [address] [facility] [address] Performing Lab: [facility] [place] [facility] [address] [facility] [address] [facility] CBC AND DIFF (AUTO) BASOPHILS [#/VOLUME] IN BLOOD BY AUTOMATED COUNT 0.05 10*3/u L 0.01 - 0.13 04/22 Specimen Type: BLOOD No comment entered. Ordering Provider: Bo MARTINEZ Report Released Date/Time: Apr 29, 2023 10:22 AM Reporting Lab: [facility] [address] [facility] [address] Performing Lab: [facility] [address] [facility] [address] [facility] CBC AND DIFF (AUTO) IMMATURE GRANULOCYTE S/100 LEUKOCYTES IN BLOOD BY AUTOMATED COUNT 0.2 0.0 - 0.7 04/22 Specimen Type: BLOOD No comment entered. Ordering Provider: Bo MARTINEZ Report Released Date/Time: Apr 29, 2023 10:22 AM Reporting Lab: [facility] [place] [facility] [address] [facility] [address] Performing Lab: [facility] [place] [facility] [address] [facility] [address] [facility] CBC AND DIFF (AUTO) IMMATURE GRANULOCYTE S [#/VOLUME] IN BLOOD BY AUTOMATED COUNT 0.01 10*3/u L 0.00 - 0.06 04/22 Specimen Type: BLOOD No comment entered. Ordering Provider: Bo MARTINEZ Report Released Date/Time: Apr 29, 2023 10:22 AM Reporting Lab: [facility] [place] [facility] [address] [facility] [address] Performing Lab: [facility] [place] [facility] [address] [facility] [address] [facility] CBC AND DIFF (AUTO) NUCLEATED ERYTHROCYTE S/100 LEUKOCYTES [RATIO] IN BLOOD BY AUTOMATED COUNT 0.0 0.0 - 0.0 04/22 Specimen Type: BLOOD No comment entered. Ordering Provider: Bo MARTINEZ Report Released Date/Time: Apr 29, 2023 10:22 AM Reporting Lab: [facility] [place] [facility] [address] [facility] [address] Performing Lab: [facility] [place] [facility] [address] [facility] [address] [facility] CBC AND DIFF (AUTO) NUCLEATED ERYTHROCYTE S [#/VOLUME] IN BLOOD BY AUTOMATED COUNT 0.00 10*3/u L 0.00 - 0.00 04/22 Specimen Type: BLOOD No comment entered. Ordering Provider: Bo MARTINEZ Report Released Date/Time: Apr 29, 2023 10:22 AM Reporting Lab: [facility] [place] [facility] [address] [facility] [address] Performing Lab: [facility] [place] [facility] [address] [facility] [address] [facility] LIVER FUNCTION PROTEIN [MASS/VOLUM E] IN SERUM OR PLASMA 7.3 g/dL 6.0 - 8.3 04/24 Specimen Type: SERUM No comment entered. Ordering Provider: Bo MARTINEZ Report Released Date/Time: Apr 16, 2023 11:34 AM Reporting Lab: [facility] [place] [facility] [address] [facility] [address] Performing Lab: [facility] [place] [facility] [address] [facility] [address] [facility] LIVER FUNCTION ALBUMIN [MASS/VOLUM E] IN SERUM OR PLASMA 4.1 g/dL 3.5 - 5.0 04/24 Specimen Type: SERUM No comment entered. Ordering Provider: Bo MARTINEZ Report Released Date/Time: Apr 16, 2023 11:34 AM Reporting Lab: [facility] [place] [facility] [address] [facility] [address] Performing Lab: [facility] [place] [facility] [address] [facility] [address] [facility] LIVER FUNCTION ALKALINE PHOSPHATASE [ENZYMATIC ACTIVITY/VO LUME] IN SERUM OR PLASMA 75 U/L 40 - 150 04/24 Specimen Type: SERUM No comment entered. Ordering Provider: Bo MARTINEZ Report Released Date/Time: Apr 16, 2023 11:34 AM Reporting Lab: [facility] [place] [facility] [address] [facility] [address] Performing Lab: [facility] [place] [facility] [address] [facility] [address] [facility] LIVER FUNCTION ASPARTATE AMINOTRANSF ERASE [ENZYMATIC ACTIVITY/VO LUME] IN SERUM OR PLASMA 21 U/L 5 - 34 04/24 Specimen Type: SERUM No comment entered. Ordering Provider: Bo MARTINEZ Report Released Date/Time: Apr 16, 2023 11:34 AM Reporting Lab: [facility] [place] [facility] [address] [facility] [address] Performing Lab: [facility] [place] [facility] [address] [facility] [address] [facility] LIVER FUNCTION ALANINE AMINOTRANSF ERASE [ENZYMATIC ACTIVITY/VO LUME] IN SERUM OR PLASMA 25 U/L 04/24 Specimen Type: SERUM No comment entered. Ordering Provider: Bo MARTINEZ Report Released Date/Time: Apr 16, 2023 11:34 AM Reporting Lab: [facility] [place] [address] [address] Performing Lab[facility] [place] [facility] [address] [facility] [address] [facility] [place] LIVER FUNCTION BILIRUBIN.T OTAL [MASS/VOLUM E] IN SERUM OR PLASMA 0.3 mg/dL 0.2 - 1.2 04/24 Specimen Type: SERUM No comment entered. Ordering Provider: Bo MARTINEZ Report Released Date/Time: Apr 16, 2023 11:34 AM Reporting Lab: [facility] [place] [address] [address] Performing Lab: [facility] [place] [address] [address] [facility] BASIC METABOLIC PANEL (fasting) UREA NITROGEN [MASS/VOLUM E] IN SERUM OR PLASMA 16 mg/dL 7 - 25 04/24 Specimen Type: SERUM No comment entered. Ordering Provider: Bo MARTINEZ Report Released Date/Time: Apr 16, 2023 11:34 AM Reporting Lab: [facility] [place] [address] [address] Performing Lab[facility] [place] [address] [address] [facility] [place] [facility] BASIC METABOLIC PANEL (fasting) GLUCOSE [MASS/VOLUM E] IN SERUM OR PLASMA 99 mg/dL 65 - 100 04/24 Specimen Type: SERUM No comment entered. Ordering Provider: Bo MARTINEZ Report Released Date/Time: Apr 16, 2023 11:34 AM Reporting Lab: [facility] [place] [address] [place] [address] Performing Lab: [facility] [place] [facility] [address] [facility] [address] [facility] [place] [facility] BASIC METABOLIC PANEL (fasting) SODIUM [MOLES/VOLU ME] IN SERUM OR PLASMA 140 mmol/L 135 - 145 04/24 Specimen Type: SERUM No comment entered. Ordering Provider: Bo MARTINEZ Report Released Date/Time: Apr 16, 2023 11:34 AM Reporting Lab: [facility] [place] [facility] [address] [facility] [address] Performing Lab: [facility] [place] [facility] [address] [facility] [address] [facility] [facility] BASIC METABOLIC PANEL (fasting) POTASSIUM [MOLES/VOLU ME] IN SERUM OR PLASMA 4.5 mmol/L 3.5 - 5.0 04/24 Specimen Type: SERUM No comment entered. Ordering Provider: Bo MARTINEZ Report Released Date/Time: Apr 16, 2023 11:34 AM Reporting Lab: [facility] [place] [facility] [address] [facility] [address] Performing Lab: [facility] [place] [facility] [address] [facility] [address] [facility] [place] [facility] BASIC METABOLIC PANEL (fasting) CHLORIDE [MOLES/VOLU ME] IN SERUM OR PLASMA 103 mmol/L 100 - 110 04/24 Specimen Type: SERUM No comment entered. Ordering Provider: Bo MARTINEZ Report Released Date/Time: Apr 16, 2023 11:34 AM Reporting Lab: [facility] [place] [facility] [address] [facility] [address] Performing Lab: [facility] [place] [facility] [address] [facility] [address] [facility] [place] [facility] BASIC METABOLIC PANEL (fasting) CARBON DIOXIDE, TOTAL [MOLES/VOLU ME] IN SERUM OR PLASMA 27 meq/L 20 - 30 04/24 Specimen Type: SERUM No comment entered. Ordering Provider: Bo MARTINEZ Report Released Date/Time: Apr 16, 2023 11:34 AM Reporting Lab: [facility] [place] [facility] [address] [facility] [address] Performing Lab: [facility] [place] [facility] [address] [facility] [address] [facility] [facility] BASIC METABOLIC PANEL (fasting) CREATININE [MASS/VOLUM E] IN SERUM OR PLASMA 0.80 mg/dL 0.50 - 1.40 04/24 Specimen Type: SERUM No comment entered. Ordering Provider: Bo MARTINEZ Report Released Date/Time: Apr 16, 2023 11:34 AM Reporting Lab: [facility] [place] [facility] [address] [facility] [address] Performing Lab: [facility] [place] [address] [address] [facility] [place] [facility] BASIC METABOLIC PANEL (fasting) GLOMERULAR FILTRATION RATE/1.73 SQ M.PREDICTED [VOLUME RATE/AREA] IN SERUM, PLASMA OR BLOOD BY CREATININE- BASED FORMULA (CKD-EPI 2020) >90mL/ min 60 04/24 Specimen Type: SERUM No comment entered. Ordering Provider: Bo MARTINEZ Report Released Date/Time: Apr 16, 2023 11:34 AM Reporting Lab: [facility] [place] [address] [address] Performing Lab: [facility] [place] [address] [address] [facility] [place] [facility] LIPID PANEL FASTING CHOLESTEROL [MASS/VOLUM E] IN SERUM OR PLASMA 138 mg/dL 04/24 Specimen Type: SERUM No comment entered. Ordering Provider: Bo MARTINEZ Report Released Date/Time: Apr 16, 2023 11:34 AM Reporting Lab: [facility] [place] [address] [address] Performing Lab: [facility] [place] [address] [address] [facility] LIPID PANEL FASTING TRIGLYCERID E [MASS/VOLUM E] IN SERUM OR PLASMA 83 mg/dL 0 - 150 04/24 Specimen Type: SERUM No comment entered. Ordering Provider: Bo MARTINEZ Report Released Date/Time: Apr 16, 2023 11:34 AM Reporting Lab: [facility] [place] [place] [facility] [address] [facility] [address] Performing Lab: [facility] [place] [facility] [address] [facility] [address] [facility] [place] [facility] LIPID PANEL FASTING CHOLESTEROL IN LDL [MASS/VOLUM E] IN SERUM OR PLASMA BY CALCULATION 68 mg/dL 0 - 129 04/24 Specimen Type: SERUM No comment entered. Ordering Provider: Bo MARTINEZ Report Released Date/Time: Apr 16, 2023 11:34 AM Reporting Lab: [facility] [place] [place] [facility] [address] [facility] [address] Performing Lab: [facility] [place] [facility] [address] [facility] [address] [facility] [place] [facility] LIPID PANEL FASTING CHOLESTEROL .TOTAL/CHOL ESTEROL IN HDL [MASS RATIO] IN SERUM OR PLASMA 2.6 04/24 Specimen Type: SERUM No comment entered. Ordering Provider: Bo MARTINEZ Report Released Date/Time: Apr 16, 2023 11:34 AM Reporting Lab: [facility] [place] [place] [facility] [address] [facility] [address] Performing Lab: [facility] [place] [facility] [address] [facility] [address] [facility] [place] [facility] LIPID PANEL FASTING CHOLESTEROL IN HDL [MASS/VOLUM E] IN SERUM OR PLASMA 53 mg/dL 40 - 60 04/24 Specimen Type: SERUM No comment entered. Ordering Provider: Bo MARTINEZ Report Released Date/Time: Apr 16, 2023 11:34 AM Reporting Lab: [facility] [place] [facility] [address] [facility] [address] Performing Lab: [facility] [place] [place] [facility] [address] [facility] [address] [facility]ATMORE [facility]N [facility] VITAMIN D (25-OH) 25-HYDROXYV ITAMIN D3 [MASS/VOLUM E] IN SERUM OR PLASMA 29 ng/mL 20 - 50 04/24 Specimen Type: SERUM No comment entered. Ordering Provider: Bo MARTINEZ Report Released Date/Time: Apr 16, 2023 11:34 AM Reporting Lab: [facility]ITALRSHEL[facility]TR[facility] [place] [facility] [address] [facility] [address] Performing Lab: [facility]PITALRATMORE [facility]ITALN [facility]OSPITALUSE[address] [address] [facility] HOSPITALUSE [facility] CBC AND DIFF (AUTO) LEUKOCYTES [#/VOLUME] IN BLOOD BY AUTOMATED COUNT 6.22 10*3/u L 4.50 - 11.00 04/24 Specimen Type: BLOOD No comment entered. Ordering Provider: Bo MARTINEZ Report Released Date/Time: Apr 16, 2023 11:34 AM Reporting Lab: [facility]ITALRATMORE [facility]ITALN [facility]OSPITALUSE[address] [address] Performing Lab: [facility]ITALRATMORE [facility]ITALN [facility]ITALUSE[address] [address] [facility]OSPITALUSE [facility] CBC AND DIFF (AUTO) ERYTHROCYTE S [#/VOLUME] IN BLOOD BY AUTOMATED COUNT 4.24 10*6/u L 4.23 - 5.66 04/24 Specimen Type: BLOOD No comment entered. Ordering Provider: Bo MARTINEZ Report Released Date/Time: Apr 16, 2023 11:34 AM Reporting Lab: [facility]ITALRATMORE [facility]ITALN [facility] HOSPITALUSETS [address] [address] Performing Lab: [facility]ITALRATMORE [facility]ITALN [facility]OS[facility]ITALUSE[address] [address] [facility]OS[facility]ITALUSE [facility] CBC AND DIFF (AUTO) HEMOGLOBIN [MASS/VOLUM E] IN BLOOD 13.2 g/dL 12.8 - 17 04/24 Specimen Type: BLOOD No comment entered. Ordering Provider: Bo MARTINEZ Report Released Date/Time: Apr 16, 2023 11:34 AM Reporting Lab: [facility] [place] [facility] [address] [facility] [address] Performing Lab: [facility] [place] [facility] [address] [facility] [address] [facility] [place] CBC AND DIFF (AUTO) HEMATOCRIT [VOLUME FRACTION] OF BLOOD BY AUTOMATED COUNT 38.6 39.2 - 50.4 04/24 L Specimen Type: BLOOD No comment entered. Ordering Provider: Bo MARTINEZ Report Released Date/Time: Apr 16, 2023 11:34 AM Reporting Lab: [facility] [place] [facility] [address] [facility] [address] Performing Lab: [facility] [place] [facility] [address] [facility] [address] [facility] CBC AND DIFF (AUTO) MCV [ENTITIC VOLUME] BY AUTOMATED COUNT 91.0 fL 82 - 99 04/24 Specimen Type: BLOOD No comment entered. Ordering Provider: Bo MARTINEZ Report Released Date/Time: Apr 16, 2023 11:34 AM Reporting Lab: [facility] [place] [facility] [address] [facility] [address] Performing Lab: [facility] [place] [facility] [address] [facility] [address] [facility] [place] CBC AND DIFF (AUTO) MCHC [MASS/VOLUM E] BY AUTOMATED COUNT 34.2 g/dL 30.8 - 35.1 04/24 Specimen Type: BLOOD No comment entered. Ordering Provider: Bo MARTINEZ Report Released Date/Time: Apr 16, 2023 11:34 AM Reporting Lab: [facility] [place] [facility] [address] [facility] [address] Performing Lab: [facility] [place] [facility] [address] [facility] [address] [facility] [place] CBC AND DIFF (AUTO) PLATELETS [#/VOLUME] IN BLOOD BY AUTOMATED COUNT 228 10*3/u L 140 - 360 04/24 Specimen Type: BLOOD No comment entered. Ordering Provider: Bo MARTINEZ Report Released Date/Time: Apr 16, 2023 11:34 AM Reporting Lab: [facility] [place] [address] [address] Performing Lab: [facility] [place] [facility] [address] [facility] [address] [facility] [place] [facility] CBC AND DIFF (AUTO) ERYTHROCYTE DISTRIBUTIO N WIDTH [RATIO] BY AUTOMATED COUNT 13.2 12.0 - 16.0 04/24 Specimen Type: BLOOD No comment entered. Ordering Provider: Bo MARTINEZ Report Released Date/Time: Apr 16, 2023 11:34 AM Reporting Lab: [facility] [place] [address] [address] Performing Lab: [facility] [place] [address] [address] [facility] [place] [facility] CBC AND DIFF (AUTO) MONOCYTES [#/VOLUME] IN BLOOD BY AUTOMATED COUNT 0.62 10*3/u L 0.30 - 1.10 04/24 Specimen Type: BLOOD No comment entered. Ordering Provider: Bo MARTINEZ Report Released Date/Time: Apr 16, 2023 11:34 AM Reporting Lab: [facility] [place] [address] [address] Performing Lab: [facility] [place] [address] [address] [facility] CBC AND DIFF (AUTO) MCH [ENTITIC MASS] BY AUTOMATED COUNT 31.1 pg 26.2 - 32.6 04/24 Specimen Type: BLOOD No comment entered. Ordering Provider: Bo MARTINEZ Report Released Date/Time: Apr 16, 2023 11:34 AM Reporting Lab: [facility] [place] [address] [address] Performing Lab[facility] [place] [facility] [address] [facility] [address] [facility] [place] [facility] CBC AND DIFF (AUTO) NEUTROPHILS /100 LEUKOCYTES IN BLOOD BY AUTOMATED COUNT 61.4 43.7 - 75.8 04/24 Specimen Type: BLOOD No comment entered. Ordering Provider: Bo MARTINEZ Report Released Date/Time: Apr 16, 2023 11:34 AM Reporting Lab: [facility] [place] [facility] [address] [facility] [address] Performing Lab: [facility] [place] [facility] [address] [facility] [address] [facility] [place] CBC AND DIFF (AUTO) LYMPHOCYTES /100 LEUKOCYTES IN BLOOD BY AUTOMATED COUNT 24.1 14.0 - 42.3 04/24 Specimen Type: BLOOD No comment entered. Ordering Provider: Bo MARTINEZ Report Released Date/Time: Apr 16, 2023 11:34 AM Reporting Lab: [facility] [place] [facility] [address] [facility] [address] Performing Lab: [facility] [place] [facility] [address] [facility] [address] [facility] [place] CBC AND DIFF (AUTO) MONOCYTES/1 00 LEUKOCYTES IN BLOOD BY AUTOMATED COUNT 10.0 5.1 - 13.7 04/24 Specimen Type: BLOOD No comment entered. Ordering Provider: Bo MARTINEZ Report Released Date/Time: Apr 16, 2023 11:34 AM Reporting Lab: [facility] [address] [facility] [address] Performing Lab: [facility] [address] [facility] [address] [facility] CBC AND DIFF (AUTO) EOSINOPHILS /100 LEUKOCYTES IN BLOOD BY AUTOMATED COUNT 3.5 0.4 - 6.8 04/24 Specimen Type: BLOOD No comment entered. Ordering Provider: Bo MARTINEZ Report Released Date/Time: Apr 16, 2023 11:34 AM Reporting Lab: [facility] [address] [facility] [address] Performing Lab[facility] [address] [facility] [address] [facility] CBC AND DIFF (AUTO) BASOPHILS/1 00 LEUKOCYTES IN BLOOD BY AUTOMATED COUNT 0.8 0.1 - 2.0 04/24 Specimen Type: BLOOD No comment entered. Ordering Provider: Bo MARTINEZ Report Released Date/Time: Apr 16, 2023 11:34 AM Reporting Lab: [facility] [address] [facility] [address] Performing Lab: [facility] [address] [facility] [address] [facility] CBC AND DIFF (AUTO) NEUTROPHILS [#/VOLUME] IN BLOOD BY AUTOMATED COUNT 3.82 10*3/u L 2.20 - 7.60 04/24 Specimen Type: BLOOD No comment entered. Ordering Provider: Bo MARTINEZ Report Released Date/Time: Apr 16, 2023 11:34 AM Reporting Lab: [facility] [address] [facility] [address] Performing Lab: [facility] [address] [facility] [address] [facility] CBC AND DIFF (AUTO) LYMPHOCYTES [#/VOLUME] IN BLOOD BY AUTOMATED COUNT 1.50 10*3/u L 1.00 - 3.20 04/24 Specimen Type: BLOOD No comment entered. Ordering Provider: Bo MARTINEZ Report Released Date/Time: Apr 16, 2023 11:34 AM Reporting Lab: [facility] [place] [facility] [address] [facility] [address] Performing Lab: [facility] [place] [facility] [address] [facility] [address] [facility] CBC AND DIFF (AUTO) EOSINOPHILS [#/VOLUME] IN BLOOD BY AUTOMATED COUNT 0.22 10*3/u L 0.03 - 0.44 04/24 Specimen Type: BLOOD No comment entered. Ordering Provider: Bo MARTINEZ Report Released Date/Time: Apr 16, 2023 11:34 AM Reporting Lab: [facility] [place] [address] [address] Performing Lab: [facility] [place] [address] [address] [facility] [place] CBC AND DIFF (AUTO) BASOPHILS [#/VOLUME] IN BLOOD BY AUTOMATED COUNT 0.05 10*3/u L 0.01 - 0.13 04/24 Specimen Type: BLOOD No comment entered. Ordering Provider: Bo MARTINEZ Report Released Date/Time: Apr 16, 2023 11:34 AM Reporting Lab: [facility] [place] [address] [address] Performing Lab: [facility] [place] [address] [address] [facility] [place] [facility] CBC AND DIFF (AUTO) IMMATURE GRANULOCYTE S/100 LEUKOCYTES IN BLOOD BY AUTOMATED COUNT 0.2 0.0 - 0.7 04/24 Specimen Type: BLOOD No comment entered. Ordering Provider: Bo MARTINEZ Report Released Date/Time: Apr 16, 2023 11:34 AM Reporting Lab: [facility] [place] [address] [address] Performing Lab: [facility] [place] [address] [address] [facility] [place] [facility] CBC AND DIFF (AUTO) IMMATURE GRANULOCYTE S [#/VOLUME] IN BLOOD 0.01 10*3/u L 0.00 - 0.06 04/24 Specimen Type: BLOOD No comment entered. Ordering Provider: Bo MARTINEZ Report Released Date/Time: Apr 16, 2023 11:34 AM Reporting Lab: [facility] [place] [facility] [address] [facility] [address] Performing Lab: [facility] [address] [facility] [address] [facility] VITAMIN D 25-OH (Therapy monitor) [...] additional information , please refer to http://educ ation.[employer] .[employer]/faq/FA Q199 (This link is being provided for information al/ educational purposes only.) This test was developed and its analytical performance characteris tics have been determined by [employer] [place], [place]. It has not been cleared or approved by the U.S. Food and Drug Administrat ion. This assay has been validated pursuant to the CLIA regulations and is used for clinical purposes. This test was developed and its analytical performance characteris tics have been determined by [employer] [place], [place]. It has not been cleared or approved by the U.S. Food and Drug Administrat ion. This assay has been validated pursuant to the CLIA regulations and is used for clinical purposes. Test Performed by [facility], [facility], [address] [place], [place] Hayes Granado M.D., Ph.D., Director of Laboratorie s , CLIA [id number] TEST PERFORMED AT: , Ordering Provider: Bo MARTINEZ Report Released Date/Time: Aug 30, 2021 11:50 AM Reporting [facility] [address] [facility] [address] Performing Lab: [facility] [address] [address] [facility] VITAMIN D 25-OH (Therapy monitor) 25-HYDROXYV ITAMIN [...] additional information , please refer to http://educ ation.[employer] .com/faq/FA Q199 (This link is being provided for information al/ educational purposes only.) This test was developed and its analytical performance characteris tics have been determined by [employer] [place], [place]. It has not been cleared or approved by the U.S. Food and Drug Administrat ion. This assay has been validated pursuant to the CLIA regulations and is used for clinical purposes. This test was developed and its analytical performance characteris tics have been determined by [employer]. It has not been cleared or approved by the U.S. Food and Drug Administrat ion. This assay has been validated pursuant to the CLIA regulations and is used for clinical purposes. Test Performed by [facility], [facility], [address] [place], [place] Hayes Granado M.D., Ph.D., Director of Laboratorie s , CLIA [id number] TEST PERFORMED AT: , Ordering Provider: Bo MARTINEZ Report Released Date/Time: Aug 30, 2021 11:50 AM Reporting Lab: [facility] [address] [facility] [address] Performing Lab: [facility] [address] [address] [facility] VITAMIN D 25-OH (Therapy monitor) [...] additional information , please refer to http://educ ation.[employer] .com/faq/FA Q199 (This link is being provided for information al/ educational purposes only.) This test was developed and its analytical performance characteris tics have been determined by [employer] [place], [place]. It has not been cleared or approved by the U.S. Food and Drug Administrat ion. This assay has been validated pursuant to the CLIA regulations and is used for clinical purposes. This test was developed and its analytical performance characteris tics have been determined by [facility] [place], [place]. It has not been cleared or approved by the U.S. Food and Drug Administrat ion. This assay has been validated pursuant to the CLIA regulations and is used for clinical purposes. Test Performed by [facility], [facility], [address] [place] [address] Hayes Granado M.D., Ph.D., Director of Laboratorie s , CLIA [id number] TEST PERFORMED AT: , Ordering Provider: Bo MARTINEZ Report Released Date/Time: Aug 30, 2021 11:50 AM Reporting Lab: [facility] [address] [facility] [address] Performing Lab[facility] [address] [address] [facility] Vital Signs Combined list of inpatient and outpatient Vital Signs from Department of Defense and Veterans Affairs, ranging from 12 months to all on record, depending upon the facility. Vital Sign Value Date Comments Source SYSTOLIC BLOOD PRESSURE 140 04/28/19 25 07:50:34 [facility] DIASTOLIC BLOOD PRESSURE 80 025 07:50:34 [facility] [place] [facility] PULSE OXIMETRY 97 04/27/2024 07:50:34 [facility] WEIGHT 277 04/27/2024 07:50:34 [facility] BMI 36 kg/m2 04/27/2024 07:50:34 [facility] [...] included; 2) Encounters from the Department of alaTest facilities going backup to 280 months. Location Location Details Encounter Type Encounter Number Reason For Visit Attending Provider ADM Date DC Date Status Disposition Source [facility] Encounter [id number] 12/30 [facility] [id number] 01/28 [facility] [id number] 03/14 [facility] [id number] 03/26 [facility] En[facility] [id number] 04/03 [facility] COMPRE OPH EXAM EST PT 1/> [id number] Diagnos is: ICD-10- CM L71.8 Other rosacea ELISA ALAN 04/16 [facility] FIT SPECTACLES MONOFOCAL [id number] Diagnos is: ICD-10- CM Z46.0 Encount er for fit/adj st of spectac les and contact lenses ELISA ALAN 04/17 [facility] CLEAN/INSP ECT MAX COMP DENT [id number] Diagnos is: ICD-10- CM K03.6 Deposit s [accret ions] on teeth KDN ADEZHDAnatoliy 04/24 [facility] OFFICE O/P EST MOD 30 MIN [id number] Diagnos is: ICD-10- CM Z77.29 Contact with and exposur e to other hazardo us substan efren BLAISE MARTINEZ 04/28 [facility] [id number] 1.10/26 [facility] [id number] 02/17 [facility] En[facility] [id number] 02/18 [facility] FIT SPECTACLES MONOFOCAL [id number] Diagnos is: ICD-10- CM L71.8 Other rosacea ELISA ALAN 04/22 [facility] En[facility] [id number] 04/27 [facility] [place] [place] [facility] [place] OFFICE O/P EST MOD 30 MIN [id number] Diagnos is: ICD-10- CM I48.91 Unspeci fied atrial fibrill atBLAISE Dickson 04/27 [facility] [place] [facility] [place] NQHP OL DIG ASSMT&MGMT 5-10 [id number] Diagnos is: ICD-10- CM D12.6 Benign neoplas m of colon, unspeci fied SOVEROW,CH RISTY A 05/13 [facility] [place] [place] [facility] Outpatient Encounter [id number] 06/14 [facility] [place] [facility] [place] [facility] Outpatient Encounter [id number] 06/24 [facility] [place] [facility] Social History Combined list of available smoking, tobacco, and other social history from Department of Defense and Veterans Affairs facilities. Social History Type Response Date Comment Source Tobacco smoking status [facility]-TOBACCO USE EVERY DAY CIGARETTES 04/27/2024 [facility] [place] [facility] History of tobacco use MA-TOBACCO NEVER USED OTHER TYPE 04/27/2024 [facility] [place] [facility] History of tobacco use VA-TOBACCO USE WI 30 MIN OF WAKEUP 04/29/2023 [facility] [place] [facility] History of tobacco use VA-TOBACCO USER EVERY DAY 07/19/2021 [facility] [place] [facility] History of tobacco use VA-TOBACCO FORMER USER 05/09/2020 [facility] [place] [facility] History of tobacco use VA-TOBACCO QUIT 5 TO < 15 YRS 03/23/2019 [facility] [place] [facility] History of tobacco use VA-TOBACCO NEVER USED 01/19/2018 [facility] [place] [facility] History of tobacco use QUIT TOBACCO USE 1-7 YEARS AGO 01/17/2017 [facility] History of tobacco use QUIT TOBACCO USE 1-7 YEARS AGO 04/19/2016 [facility] History of tobacco use QUIT TOBACCO USE 1-7 YEARS AGO 05/05/2014 [facility] History of tobacco use QUIT TOBACCO USE 1-7 YEARS AGO 04/08/2013 . [facility] History of tobacco use CURRENT SMOKER 01/10/2012 [facility] History of tobacco use V1-PT DECLINES TOBACCO CESSATION MEDS 04/25/2011 [facility] History of tobacco use CURRENT SMOKER 08/16/2010 1 pk per wk [facility] History of tobacco use V1-PT THINKING ABOUT QUIT TOBACCO USE 12/28/2009 [facility] History of tobacco use V1-PT DECLINES TOBACCO CESSATION MEDS 03/20/2009 [facility] History of tobacco use CURRENT SMOKER 03/13/2009 just when he is drinking. He can't stand it otherwise. [facility] Advance Directives List of completed, amended, or rescinded Advance Directives on record at Department of [facility] facilities. An actual copy of the Directive is not included. Date Advance Directive Provider Source 06/08/2014 ADVANCE DIRECTIVE TARYN VILLATORO [facility]
--- OUTSIDE RECORDS SUMMARY | 2024-06-25 07:56 | XMS_ITS ---
Author Name [facility] [place] [facility] [place] Address [address] [place] [id number] Care Team Providers Care Timber Appraiser Name Role Phone BLAISE MARTINEZ Primary Care [...] Name Patient's Relationship to Policy Greco [place] SUPPLEMEN ROHITH MEDEX 2 Aug 10, 2018 [id number] [phone] Cresencio GAYTAN PATIENT [place] SUPP[place] ROHITH MEDEX 2 Aug 10, 2018 [id number] Cresencio GAYTANHETAL PATIENT [place]BS [place] MEDICARE SUPPLEMEN ROHITH MEDEX 2 Aug 10, 2018 [id number] [phone] Cresencio GAYTAN PATIENT [facility] MEDICARE SUPPLEMEN ROHITH AGAWA [facility] OF Aug 10, 2018 [id number] [phone] Cresencio GAYTAN PATIENT EXPRESS SCRIPTS ([id number]) PRESCRIPT ION BCBSM A June 21, 2010 [facility] [id number] Cresencio GAYTAN PATIENT MEDICARE (WNR) MEDICARE (M) PART A Aug 10, 2018 PART A [id number] [phone] Cresencio GAYTAN PATIENT MEDICARE (WNR) MEDICARE (M) PART B Aug 10, 2018 PART B [id number] Cresencio GAYTAN PATIENT MEDICARE (WNR) MEDICARE (M) PART A Aug 10, 2018 PART A [id number] Cresencio GAYTAN PATIENT MEDICARE (WNR) MEDICARE (M) PART B Aug 10, 2018 PART B [id number] Cresencio GAYTAN PATIENT Selected Encounter This section includes the information on record at [place] for the Encounter. Date/Time Encounter Type Encounter Description Reason Provider Source Apr 22, 2024 07:30 AM FIT SPECTACLES MONOFOCAL OPTOMETRY ICD-10-CM L71.8 Other rosaceKELLI Levi Encounter Template Text not used by [facility] Assessments - Encounter Diagnoses This section includes the primary and secondary diagnoses documented for the Encounter. Date/Time Primary/Secondary Diagnosis Diagnosis Name Provider Source Apr 22, 2024 07:52 AM PRIMARY Other rosacea CANDELARIO ALAN [place] [facility] [place] [facility] Apr 22, 2024 07:52 AM SECONDARY Age-related nuclear cataract, bilateral CANDELARIO ALAN [facility] [place] [facility] Apr 22, 2024 07:52 AM SECONDARY Meibomian gland dysfnct left eye, upper and lower eyelids CANDELARIO ALAN [facility] [place] [facility] Apr 22, 2024 07:52 AM SECONDARY Meibomian gland dysfnct right eye, upper and lower eyelids CANDELARIO ALAN [facility] [place] [facility] Apr 22, 2024 07:52 AM SECONDARY Other oil heaterman (current) drug therapy CANDELARIO ALAN [facility] [place] [facility] Apr 22, 2024 07:52 AM SECONDARY Unspecified atrial fibrillation CANDELARIO ALAN [facility] [place] [facility] Apr 22, 2024 07:52 AM SECONDARY Vitreous degeneration, right eye CANDELARIO ALAN [facility] Plan of Treatment: Future Appointments (+ 6 months) and Future Tests (+/- 45 days) The Plan of Treatment section includes future care activities for the patient from all [place] treatmentfaatrium healthities. This section includes future appointments and future orders which are active, pending or scheduled. Future Appointments This section includes appointments that were scheduled to occur 6 months from the date of the Encounter, up to a maximum of 20 appointments. The data comes from all [place] treatment facilities. Appointment Date/Time Appointment Type Appointme nt Facility Name Apr 27, 2024 08:00 AM AMBULATORY - MEDICINE [facility] Lab Results: +/- 30 days of the encounter This section includes the Chemistry and Hematology Lab Results on record with [place] for the patient. Radiology Reports and Pathology Reports are provided separately, in subsequent sections. Lab Results This section contains the Chemistry/Hematology Results that were resulted 30 days before or 30 daysafter the date of the Encounter. Date/Time Source Result Type Result - Unit Interpretation Reference Range Specimen Type Comment Apr 22, 2024 07:55 AM [facility] LIPID PANEL FASTING SERUM Specimen Type: SERUM No comment entered. Ordering Provider: KUNAL MARTINEZ Report Released Date/Time: Apr 29, 2023 10:22 AM Reporting Lab: [facility] [address] [address] Performing Lab: [address] [address] CHOLESTEROL 139 mg/dL TRIGLYCERIDE 107 mg/dL 0-150 LDL calculated 68 mg/dL 0-129 CHOL/HDL 2.8 HDL CHOLESTEROL 50 mg/dL 40-60 Apr 22, 2024 07:55 AM [facility] LIVER FUNCTION SERUM Specimen Type: SERUM No comment entered. Ordering Provider: BLAISE MARTINEZ Report Released Date/Time: Apr 29, 2023 10:22 AM Reporting Lab: [facility] [address] [address] Performing Lab: [address] [address] PROTEIN,TOTAL 7.7 g/dL 6.0-8.3 ALBUMIN 3.9 g/dL 3.5-5.0 ALKALINE PHOSPHATASE 78 U/L 40-150 AST 18 U/L 5-34 ALT 17 U/L BILIRUBIN, TOTAL 0.4 mg/dL 0.2-1.2 Apr 22, 2024 07:55 AM [facility] BASIC METABOLIC PANEL (fasting) SERUM Specime n Type: SERUM No comment entered. Ordering Provider: BLAISE MARTINEZ Report Released Date/Time: Apr 29, 2023 10:22 AM Reporting Lab: [facility] [address] [address] Performing Lab: [address] [address] UREA NITROGEN 12 mg/dL 7-25 GLUCOSE 102 mg/dL H 65-100 SODIUM 137 mmol/L 135-145 POTASSIUM 4.7 mmol/L 3.5-5.0 CHLORIDE 101 mmol/L 100-110 CO2 28 meq/L 20-30 CALCIUM 9.7 mg/dL 8.5-10.2 CREATININE, Serum 0.74 mg/dL 0.50-1.40 eGFR(CKD-EPI 2020) >90 mL/min >60 Apr 22, 2024 07:55 AM [facility] CBC AND DIFF (AUTO) BLOOD Specimen Type: BLOO D No comment entered. Ordering Provider: BLAISE MARTINEZ Report Released Date/Time: Apr 29, 2023 10:22 AM Reporting Lab: [facility] [address] [facility] [address] Performing Lab: [facility] [address] [address] WBC 5.94 10*3/uL 4.50-11.00 RBC 4.26 10*6/uL [...] and tobacco- related health factors from the [place] facility where the Encounter took place. Current Smoking Status This section includes the most current smoking, or tobacco-related health factor, from the [place] facility where the Encounter took place. Date/Time Current Smoking Status [place] [facility] [place] 29, 2023 10:00 AM VA-TOBACCO USE [place] 30 MIN [facility] WAKEUP [facility] Tobacco Use History This section includes a history of the smoking, or tobacco-related health factors, that were collected on or before the date of the Encounter. The data comes from the [place] facility where the Encounter took place. Date/Time Smoking Status/Tobac co Use Comment Facility Apr 29, 2023 10:00 AM VA-TO[facility]CO USE ADVICE [facility] Apr 29, 2023 10:00 AM VA-TOBACCO USE DIGITAL 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 [place] [facility] [facility] Apr 29, 2023 10:00 AM VA-TO[facility]ACCO USE MED NO [place] [facility] Apr 29, 2023 10:00 AM VA-TOBACCO USE WI 30 MIN OF WAKEUP [facility] [place] [facility] Apr 29, 2023 10:00 AM VA-TOBACCO USER EVERY DAY [place] [facility] [place] [facility] Jul 19, 2021 10:25 AM VA-TOBACCO DOESNT USE WI 30 MIN WAKEUP [place] [facility] [place] [facility] Jul 19, 2021 10:25 AM VA-TOBACCO USE 30 YEARS OR MORE [place] [facility] [place] [facility] Jul 19, 2021 10:25 AM VA-TOBACCO USE ADVICE [place] [facility] [place] [facility] Jul 19, 2021 10:25 AM VA-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 USE 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 [place] [facility] [place] [facility] Jul 19, 2021 10:25 AM VA-TOBACCO USE MED NO [place] [facility] [place] [facility] Jul 19, 2021 10:25 AM VA-TOBACCO USER EVERY DAY [place] [facility] [place] [facility] May 09, 2020 08:00 AM VA-TOBACCO FORMER USER [place] [facility] [place] [facility] May 09, 2020 08:00 AM VA-TOBACCO QUIT < 1 YEAR [place] [facility] [place] [facility] Mar 23, 2019 09:01 AM VA-TOBACCO FORMER USER [place] [facility] [place] [facility] Mar 23, 2019 09:01 AM VA-TOBACCO QUIT 5 TO < 15 YRS [place] [facility] [place] [facility] Jan 19, 2018 08:24 AM VA-TOBACCO NEVER USED [place] [facility] [place] [facility] Jan 17, 2017 08:30 AM QUIT TOBACCO USE > 7 YEARS AGO [facility] [place] [facility] Jan 17, 2017 08:30 AM QUIT TOBACCO USE 1-7 YEARS AGO [facility] [place] [facility] Apr 19, 2016 01:06 PM QUIT TOBACCO USE 1-7 YEARS AGO [facility] [place] [facility] May 05, 2014 08:45 AM QUIT TOBACCO USE 1-7 YEARS AGO [facility] [place] [facility] Apr 08, 2013 08:46 AM QUIT TOBACCO USE 1-7 YEARS AGO . [place] [facility] [place] [facility] Jan 10, 2012 08:23 AM CURRENT SMOKER [facility] [place] [facility] Jan 10, 2012 08:23 AM V1-PT DECLINES REF TO TOBACCO CESS PRGM [facility] Jan 10, 2012 08:23 AM V1-PT DECLINES TOBACCO CESSATION MEDS [facility] Jan 10, 2012 08:23 AM V1-PT THINKING ABOUT QUIT TOBACCO USE [facility] Apr 25, 2011 08:23 AM V1-PT DECLINES REF TO TOBACCO CESS PRGM [facility] Apr 25, 2011 08:23 AM V1-PT DECLINES TOBACCO CESSATION MEDS [facility] Apr 25, 2011 08:23 AM V1-PT THINKING ABOUT QUIT TOBACCO USE [facility] Aug 16, 2010 09:12 AM CURRENT SMOKER 1 pk per wk [facility] Aug 16, 2010 09:12 AM V1-PT DECLINES REF TO TOBACCO CESS [facility]GM [facility] Aug 16, 2010 09:12 AM V1-PT DECLINES TOBACCO CESSATION MEDS [facility] Aug 16, 2010 09:12 AM V1-PT NOT INTERESTED IN QUIT TOBACCO USE [facility] Dec 28, 2009 08:21 AM V1-PT DECLINES REF TO TOBACCO CESS PRGM [facility] Dec 28, 2009 08:21 AM V1-PT THINKING ABOUT QUIT TOBACCO USE [facility] Mar 20, 2009 10:53 AM V1-PT DECLINES REF TO TOBACCO CESS PRGM [facility] Mar 20, 2009 10:53 AM V1-PT DECLINES TOBACCO CESSATION MEDS [facility] Mar 20, 2009 10:53 AM V1-PT NOT INTERESTED IN QUIT TOBACCO USE [facility] Mar 13, 2009 09:37 AM CURRENT SMOKER just when he is drinking. He can't stand it otherwise. [facility] Advance Directives: All historical and current Section Date Range: From patient's date of to the date document was created. This section includes ALL of a patient's completed or amended [place] Advance and Rescinded Directives. The entries below indicate that a directive exists for the patient, but an actual copy is not included with this document. The data comes from all [place] facilities. Date Advance Directives Provider Source Jun 08, 2014 ADVANCE DIRECTIVE TARYN VILLATORO Kathryn [place] [facility] Encounter Notes: All associated encounter notes This section contains the clinical notes associated to the Encounter. Date/Time Encounter Note(s) Provider Source Apr 22, 2024 07:30 AM OPTOMETRY NOTE: LOCAL TITLE: OPTOMETRY NOTE STANDARD TITLE: OPTOMETRY NOTE DATE OF NOTE: APR 22, 2024@07:30 ENTRY DATE: APR 22, 2024@07:30:53 AUTHOR: ANDRIY ALAN COSIGNER: URGENCY: STATUS: COMPLETED OPTOMETRY NOTE Has ADDENDA Active problems - Computerized Problem List is the source for the followin. Exposure to potentially hazardous substance ([facility] [id number]) 2. AF- Atrial Fibrillation ([facility] [id number]) 3. Abdominal aortic aneurysm 3.0 to 5.5 [...] if need be. Suicide Screen: C-SSRS Screening [place]-Suicide Severity Rating Scale (C-SSRS Screener) 1. Over [...] of active outpatient prescriptions dispensed from this [place] (local) and dispensed from another [place] or [facility] facility (remote) as well as [...] JLV. Allergies/ADRs (Tool #5) FACILITY ALLERGY/ADR -------- [facility] CODEINE [facility] MORPHINE [place] [facility] [place] [facility] [place] [facility] [place] [facility] MORPHINE Med Recon NoGlossary (Tool #1) INCLUDED IN THIS LIST: Alphabetical list of active outpatient prescriptions dispensed from this [place] (local) and dispensed from another [place] or [facility] facility (remote) as well as inpatient orders (local pending and active), local clinic medications, locally documented non-VA medications, and local prescriptions that have or been discontinued in the past 90 days. Non-VA Meds Last Documented On: Mar 15, 2021 NOTE The display of VA prescriptions dispensed from another [place] or [facility] facility (remote) is limited to active outpatient prescription entries matched to National Drug File at the originating site and may not include some items such as investigational drugs, compounds, etc. NOT INCLUDED IN THIS LIST: Medications self-entered by the patient into personal health records (i.e. [employer]) are NOT included in this list. Non-VA medications documented outside this [place], remote inpatient orders (regardless of status) and remote clinic medications are NOT included in this list. The patient and provider must always discuss medications the patient is taking, regardless of where the medication was dispensed or obtained. OUTPT APIXABAN 5MG TAB (Status = Active) TAKE ONE TABLET BY MOUTH TWICE DAILY Rx# [id number] Last Released: 02/24/24 Qty/Days Supply: Rx Expiration Date: 02/19/25 Refills Remainin OUTPT CARBOXYMETHYLCELLULOSE NA 0.5% OPH SOLN (Status = ) INSTILL 1 DROP INTO EACH EYE FOUR TIMES DAILY NEEDED FOR DRY EYE Rx# [id number] Last Released: 02/06/24 Qty/Days Supply: 45 Rx Expiration Date: 04/17/24 Refills Remainin Indication: FOR DRY EYE OUTPT DRONEDARONE 400MG TAB (Status = Active) TAKE ONE TABLET BY MOUTH TWICE DAILY Rx# [id number] Last Released: 03/20/24 Qty/Days Supply: 180 Rx Expiration Date: 10/30/24 Refills Remainin Non-VA FISH OIL 500MG DHA/EPA CAP,ORAL TAKE BY MOUTH OUTPT LISINOPRIL 10MG TAB (Status = Active) TAKE ONE TABLET BY MOUTH ONCE DAILY TO CONTROL BLOOD PRESSURE Rx# [id number] Last Released: 02/06/24 Qty/Days Supply: Rx Expiration Date: 10/30/24 Refills Remainin Non-VA MULTIVITAMIN/MINERALS CAP/TAB TAKE ONE TABLET BY MOUTH EVERY DAY OUTPT OMEPRAZOLE 20MG EC CAP (Status = Active) TAKE ONE CAPSULE BY MOUTH EVERY DAY Rx# [id number] Last Released: 02/06/24 Qty/Days Supply: Rx Expiration Date: 10/30/24 Refills Remainin OUTPT ROSUVASTATIN CA 40MG TAB (Status = Active) TAKE ONE-HALF TABLET BY MOUTH ONCE DAILY FOR CHOLESTEROL Rx# [id number] Last Released: 11/29/23 Qty/Days Supply: Rx Expiration [...] Dir: Prz2:0.00 Dir2: FITTING INFORMATION FPD:71 NPD: Thomas:R: L: SEG HT:R: L: Tint:None Shade:None FRAME: BIG TWIST BLACK [id number] Right Lens: PLASTIC SINGLE VISION PHOTOCHROMIC ABRAHAM 1.498 PLASTIC CR39 Left Lens: PLASTIC SINGLE VISION PHOTOCHROMIC ABRAHAM 1.498 PLASTIC CR39 Rx: [facility] RX INFORMATION OD +4.25 -0.75 X45 Add:0.00 Pzm:0.00 Dir: Prz2:0.00 Dir2: OS +4.00 -0.50 X105 Add:0.00 Pzm:0.00 Dir: Prz2:0.00 Dir2: FITTING INFORMATION FPD:68 NPD:68 Thomas:R: L: SEG HT:R: L: Tint:None Shade:None FRAME: KELLY BERNAL [id number] Right Lens: PLASTIC SINGLE VISION CLEAR 1.498 PLASTIC CR39 Left Lens: PLASTIC SINGLE VISION CLEAR 1.498 PLASTIC CR39 /samir/ Andriy Alan OD CHIEF OF OPTOMETRY Signed: 04/22/2024 07:53 06/15/2024 ADDENDUM STATUS: COMPLETED Optometry Health Computer Programming Supervisor ordered patient 2 pair(s) of SV eyeglasses on 06/16/2024 as directed by provider. OPT HT entered consult(s) for order on behalf of provider /samir/ SIXTO CARRILLO OPTOMETRY TECH Signed: 06/15/2024 16:07 [facility]
--- OUTSIDE RECORDS SUMMARY | 2024-06-25 07:57 | XMS_ITS | Encounter Summary ---
Author Name [facility] [place] Organization [facility] [place] Address [address] [place] [id number] Care Team Providers Care Retirement Officer Name Role Phone BLAISE MARTINEZ Primary Care [...] Name Patient's Relationship to Policy [place] SU[place] ROHITH MEDEX 2 Aug 10, 2018 [id number] Cresencio GAYTAN [place] ROHITH MEDEX 2 Aug 10, 2018 [id number] Cresencio GAYTANHETAL PATIENT [place]BS [place] MEDICARE SUPPLEMEN ROHITH MEDEX 2 Aug 10, 2018 [id number] Cresencio GAYTAN PATIENT BCBS OF [facility] MEDICARE SUPPLEMEN ROHITH [facility] Aug 10, 2018 [id number] Cresencio GAYTAN PATIENT [employer] ([id number]) PRESCRIPT ION BCBSM A June 21, 2010 [facility] [id number] Cresencio GAYTAN PATIENT MEDICARE (WNR) MEDICARE (M) PART A Aug 10, 2018 PART A [id number] Cresencio GAYTAN PATIENT MEDICARE (WNR) MEDICARE (M) PART B Aug 10, 2018 PART B [id number] Cresencio GAYTAN PATIENT MEDICARE (WNR) MEDICARE (M) PART A Aug 10, 2018 PART A [id number] Cresencio GAYTAN PATIENT MEDICARE (WNR) MEDICARE (M) PART B Aug 10, 2018 PART B [id number] [phone] [id number] Cresencio GAYTAN PATIENT Selected Encounter This section includes the information on record at [place] for the Encounter. Date/Time Encounter Type Encounter Description Reason Pro vider Source June 24, 2024 11:18 AM Outpatient Encounter PRIMARY CARE/MEDICINE IHE Encounter Template Text not used by [place] Social History: Smoking Status (Most current) and Tobacco Use (All prior to encounter date) This section includes the most current, and the historical, smoking and tobacco- related health factors from the [place] facility where the Encounter took place. Current Smoking Status This section includes the most current smoking, or tobacco-related health factor, from the [place] facility where the Encounter took place. Date/Time Current Smoking Status Comment Corrina brock Apr 27, 2024 08:00 AM VA-TOBACCO USE MARELY RY DAY [facility] Tobacco Use History This section includes a history of the smoking, or tobacco-related health factors, that were collected on or before the date of the Encounter. The data comes from the [place] facility where the Encounter took place. Date/Time Smoking Status/Tobac co Use Comment Facility Apr 27, 2024 08:00 AM VA-TOBACCO NEVER USED OTHER TYPE [place] [facility] [place] [facility] Apr 27, 2024 08:00 AM VA-TOBACCO SCREEN FOLLOW-UP [facility] [place] [facility] Apr 27, 2024 08:00 AM VA-TOBACCO USE ADVICE [facility] [place] [facility] Apr 27, 2024 08:00 AM VA-TOBACCO USE MANAGER TEST NO [facility] [place] [facility] Apr 27, 2024 08:00 AM VA-TOBACCO USE EVERY DAY CIGARETTES [facility] [place] [facility] Apr 27, 2024 08:00 AM VA-TOBACCO USE MED YES [facility] [place] [facility] Apr 29, 2023 10:00 AM VA-TOBACCO USE 30 YEARS OR MORE [facility] [place] [facility] Apr 29, 2023 10:00 AM VA-TOBACCO USE ADVICE [facility] [place] [facility] Apr 29, 2023 10:00 AM VA-TOBACCO USE MANAGER TEST NO [facility] [place] [facility] Apr 29, 2023 10:00 AM VA-TOBACCO USE MED NO [facility] [place] [facility] Apr 29, 2023 10:00 AM VA-TOBACCO USE WI 30 MIN OF WAKEUP DE [facility] [place] [facility] Apr 29, 2023 10:00 AM VA-TOBACCO USER EVERY DAY [facility] [place] [facility] Jul 19, 2021 10:25 AM VA-TOBACCO DOESNT USE WI 30 MIN WAKEUP DE [facility] [place] [facility] Jul 19, 2021 10:25 AM VA-TOBACCO USE 30 YEARS OR MORE [facility] [place] [facility] Jul 19, 2021 10:25 AM VA-TOBACCO USE ADVICE [facility] [place] [facility] Jul 19, 2021 10:25 AM VA-TOBACCO USE MANAGER TEST NO [facility] [place] [facility] Jul 19, 2021 10:25 AM VA-TOBACCO USE MED NO [facility] [place] [facility] Jul 19, 2021 10:25 AM VA-TOBACCO USER EVERY DAY [facility] [place] [facility] May 09, 2020 08:00 AM VA-TOBACCO FORMER USER [facility] [place] [facility] May 09, 2020 08:00 AM VA-TOBACCO QUIT < 1 YEAR [facility] [place] [facility] Mar 23, 2019 09:01 AM VA-TOBACCO FORMER USER [facility] [place] [facility] Mar 23, 2019 09:01 AM VA-TOBACCO QUIT 5 TO < 15 YRS [facility] [place] [facility] Jan 19, 2018 08:24 AM VA-TOBACCO NEVER USED [facility] [place] [facility] Jan 17, 2017 08:30 AM QUIT TOBACCO USE > 7 YEARS AGO [facility] [place] [facility] Jan 17, 2017 08:30 AM QUIT TOBACCO USE 1-7 YEARS AGO [facility] [place] [facility] Apr 19, 2016 01:06 PM QUIT TOBACCO USE 1-7 YEARS AGO [facility] [place] [facility] May 05, 2014 08:45 AM QUIT TOBACCO USE 1-7 YEARS AGO [facility] [place] [facility] Apr 08, 2013 08:46 AM QUIT TOBACCO USE 1-7 YEARS AGO . [facility] [place] [facility] Jan 10, 2012 08:23 AM CURRENT SMOKER [facility] [place] [facility] Jan 10, 2012 08:23 AM V1-PT DECLINES REF TO TOBACCO CESS PRGM [facility] [place] [facility] Jan 10, 2012 08:23 AM V1-PT DECLINES TOBACCO CESSATION MEDS [facility] [place] [facility] Jan 10, 2012 08:23 AM V1-PT THINKING ABOUT QUIT TOBACCO USE [facility] [place] [facility] Apr 25, 2011 08:23 AM V1-PT DECLINES REF TO TOBACCO CESS PRGM [facility] [place] [facility] Apr 25, 2011 08:23 AM V1-PT DECLINES TOBACCO CESSATION MEDS [facility] [place] [facility] Apr 25, 2011 08:23 AM V1-PT THINKING ABOUT QUIT TOBACCO USE [facility] [place] [facility] Aug 16, 2010 09:12 AM CURRENT SMOKER 1 pk per wk [facility] [place] [facility] Aug 16, 2010 09:12 AM V1-PT DECLINES REF TO TOBACCO CESS PRGM [facility] [place] [facility] Aug 16, 2010 09:12 AM V1-PT DECLINES TOBACCO CESSATION MEDS [facility] [place] [facility] Aug 16, 2010 09:12 AM V1-PT NOT INTERESTED IN QUIT TOBACCO USE [facility] [place] [facility] Dec 28, 2009 08:21 AM V1-PT DECLINES REF TO TOBACCO CESS PRGM [facility] [place] [facility] Dec 28, 2009 08:21 AM V1-PT THINKING ABOUT QUIT TOBACCO USE [facility] Mar 20, 2009 10:53 AM V1-PT DECLINES REF TO TOBACCO CESS PRGM [facility] Mar 20, 2009 10:53 AM V1-PT DECLINES TOBACCO CESSATION MEDS [facility] Mar 20, 2009 10:53 AM V1-PT NOT INTERESTED IN QUIT TOBACCO USE [facility] Mar 13, 2009 09:37 AM CURRENT SMOKER just when he is drinking. He can't stand it otherwise. [facility] Advance Directives: All historical and current Section Date Range: From patient's date of to the date document was created. This section includes ALL of a patient's completed or amended [place] Advance and Rescinded Directives. The entries below indicate that a directive exists for the patient, but an actual copy is not included with this document. The data comes from all [place] facilities. Date Advance Directives Provider Source Jun 08, 2014 ADVANCE DIRECTIVE TARYN VILLATORO [facility] Encounter Notes: All associated encounter notes This section contains the clinical notes associated to the Encounter. Date/Time Encounter Note(s) Provider Source June 24, 2024 11:18 AM LETTERS: LOCAL TITLE: PATIENT LETTER (T) STANDARD TITLE: LETTERS DATE OF NOTE: JUNE 24, 2024@11:18 ENTRY DATE: JUNE 24, 2024@11:18:54 AUTHOR: CAROLYNN GOMEZ EXP COSIGNER: URGENCY: STATUS: COMPLETED [facility] Toll Free Number Primary Care Telephone Assistance can be reached at extension [phone] [facility] scheduling can be reached at extension [phone] [facility] scheduling can be reached at ext [phone] SOFIA GAYTAN [address] [place] [address], [phone] Dear , Our records indicate that you are over due for a follow up colonoscopy from 2014, if you have had a colorectal exam since then, or have one scheduled for the near future, please provide dates and locations. Thank You Sincerely, Your Primary Care Team [facility] [address] [address] [place] [address] [phone] [place] [address] [place] [address] [place] [address] [phone] [facility] [address] [facility],[address]st [address] [place] [id number] [place] [address] CAROLYNN GOMEZ [facility]
--- OUTSIDE RECORDS SUMMARY | 2024-06-25 07:57 | XMS_ITS ---
Author Organization [facility] Address [address] [place] [address] Care Team Providers Care Vice President Compliance Name Role Phone CAROLINARELI MARGOT Primary Care Provider Gamaliel Haywood [phone] Allergies Allergen (clinical drug ingredient) Drug/Non Drug Allergy documented on EMR Reaction Allergy Type Onset Date Status morphine Morphine Sulfate Unknown Drug Allergy Active REASON FOR VISIT Patient presents today for gastritis, discuss colonoscopy Medications Medication SIG (Take, Route, Frequency, Duration) Notes Start Date End Date Status Sertraline HCl 50 MG TAKE 1 TABLET BY MO UTH EVERY DAY Oral for 90 Active Ibuprofen 200 MG 1 tablet with food o r milk as needed Orally as needed Not-T aking Multaq 400 MG TAKE 1 TABLET BY QI TH TWICE A DAY WITH FOOD Oral for 90 Active Multivitamin Adult Orally A ctive Omeprazole 20 MG 1 capsule Orally Once a day Active Eliquis 5 MG Orally twice a day Active Lisinopril 10 MG 1 tablet Orally Once a day Active Social History Alcohol Screen Question Answer Notes Did you have a drink containing alcohol in the p ast year? No Points 0 Interpretation Negative Section Notes: Nonsmoker since 2011; no sig EtOH Problems Problem Type SNOMED Code ICD Code Onset Dates Problem Status W/U Status Risk Notes Problem Epigastric pain (20890594) Abdominal pain, epigastric (R10.13) Active confirmed Problem Gastroesophageal reflux disease (739057200) GERD (gastroesophag eal reflux disease) (K21.9) Active confirmed Problem Colon cancer screening (177053337) Colon cancer screening (Z12.11) Active confirmed Vital Signs Blood pressure systolic 111 mm Hg 05/19/19 25 Blood pressure diastolic 11 mm Hg 025 Height 72.5 in 05/18/2024 Weight 279 lbs 05/18/2024 BMI 37.32 kg/m2 05/18/2024 Procedures Procedure Date Ordered Date Performed Result Body Sit e UPPER GI ENDOSCOPY 05/18/2024 N/A COLONOSCOPY 05/18/2024 N/A Encounters Encounter Location Date Provider Diagnosis [facility] [address] [place] [address] 05/18/2024 Gamaliel Abernathy Abdominal pain, epigastric R10.13 ; History of adenomatous polyp of colon Z86.010 ; Colon cancer screening Z12.11 and GERD (gastroesophageal reflux disease) K21.9 Assessments Encounter Date Diagnosis (ICD Code) Assessment Notes Treatment Notes Treatment Clinical Notes Section Notes 05/18/2024 Abdominal pain, epigastric (ICD-10 - R10.13) Overall, Sofia appears well. In regard to his upper [...] adjustment of his medications for the procedures. Sofia was comfortable with this plan. Thank you again for allowing me to participate in Sofia's care. I shall continue to keep you advised of his progress. 05/18/2024 History of adenomatous polyp of colon (ICD-10 - Z86.010) Overall, Sofia appears well. In regard to his upper [...] adjustment of his medications for the procedures. Sofia was comfortable with this plan. Thank you again for allowing me to participate in Sofia's care. I shall continue to keep you advised of his progress. 05/18/2024 Colon cancer screening (ICD-10 - Z12.11) Overall, Sofia appears well. In regard to his upper [...] adjustment of his medications for the procedures. Sofia was comfortable with this plan. Thank you again for allowing me to participate in Sofia's care. I shall continue to keep you advised of his progress. 05/18/2024 GERD (gastroesophage al reflux disease) (ICD-10 - K21.9) Overall, Sofia appears well. In regard to his upper [...] adjustment of his medications for the procedures. Sofia was comfortable with this plan. Thank you again for allowing me to participate in Sofia's care. I shall continue to keep you advised of his progress. Plan Of Treatment Pending Test Test Name Order Date UPPER GI ENDOSCOPY 05/18/2024 COLONOSCOPY 05/18/2024 US abdomen complete 05/18/2024 Next Appt Details Follow Up: prn, Reason: Provider Name:Gamaliel Abernathy , 08/16/2024 11:10:00 AM, [address] [place] [address] , [place], [place], [phone], Progress Notes * FLORESDONNIE SOFIADOB:[birth year] (68 yo M)Acc No.[id number]:05/18/2024 Progress Notes Patient:?SOFIA GAYTAN Provider:?Gamaliel Abernathy MD :1955???Age:68 Y???Sex:Male Merrill e:05/18/2024 Address:[address] [place] [address] JOAO ELIZALDE [id number] Pcp:MARGOT SOSA Subjective: * Chief Complaints: * ???Patient presents today fo r gastritis, discuss colonoscopy * HPI: ???incontinence:? I saw Sofia in consultation today for evaluation of some abdominal discomfort, chronic gastroesophageal reflux, personal history of tubular adenomas of the colon, family history of colon cancer, and need for colorectal cancer screening. I last saw Sofia in November 2019, at which time he underwent a negative follow-up screening colonoscopy.. He does have a previous history of tubular adenomas and a family history of colon cancer in a sister, as well as other GI malignancies in both his mother and father with gastric cancer and pancreatic cancer, respectively. He presently feels well. His bowel movements have been regular and without any hematochezia nor melena. He?enjoys a good appetite and denies any significant heartburn or dysphagia on his daily omeprazole. He has been having intermittent episodes of upper abdominal discomfort. He had a particularly bad episode last July that prompted an ER visit. The episodes of discomfort are not associated with any signs of jaundice, fevers, vomiting, diarrhea, nor any GI bleeding. He does describe a sense of bloating and gas. He does not use any lactose containing dairy products. A CBC revealed a hemoglobin of 13.3 with a normal MCV. A CT scan of the abdomen and pelvis described as unremarkable including the liver, gallbladder, and GI tract, other than some possible changes of gastritis in the proximal stomach. * ROS:?General/Constitutional:?Change in appetite?denies.?Chills?denies.?Fatigue?denies.?Ophthalmologic:?Patient denies? Negative..?ENT:?Patient denies?Negative..?Respiratory:?Patient denies?No coughing/hemoptysis..?Cardiovascular:?Patient denies? No chest pain/orthopnea..?Gastrointestinal:?Comments?See HPI for details.?Genitourinary:?Patient denies? No dysuria/hematuria..?Incontinence?denies.?Musculoskeletal:?Patient denies? No specific arthralgias/myalgias..?Skin:?Patient denies?No rash/pruritus..?Neurologic:?Patient denies? No headaches/seizures..?Psychiatric:?Patient denies?Negative..? * Medical History:? * Surgical History:?Right knee replacement leep apnea surgery in the Left hip replacement--Dr. Sutherland 08/2015Left knee replacement - dr. Navarrete 08/28/2023Umbilical hernia with mesh Back surgery * Hospitalization/Major Diagno stic Procedure:?No Hospitalization History. * Family History:?Father: dece ased, pacreatic cancer, diagnosed with Colon polyps.?Mother: , cancer that started in stomach.? Sister had colon cancer. * Social History:?Tobacco Use:?Tobacco Use/Smoking?Are you a: former smoker , How long has it been since you last smoked?: 1-5 years.?Drugs/Alcohol:?Alcohol Screen?Did you have a drink containing alcohol in the past year??No,?Points?0,?Interpretation?Negative.?Miscellaneous:?Marital status: ---His is getting treated for ovarian cancer as of the May, office visit.. Occupation: Retired from [employer]. ???Nonsmoker since 2011; no sig EtOH. * Medications:?TakingOmeprazol e 20 MG Capsule Delayed Release 1 capsule Orally Once a day Lisinopril 10 MG Tablet 1 tablet Orally Once a day Eliquis 5 MG Tablet Orally twice a day Sertraline HCl 50 MG Tablet TAKE 1 TABLET BY MOUTH EVERY DAY Oral Multaq 400 MG Tablet TAKE 1 TABLET BY MOUTH TWICE A DAY WITH FOOD Oral Multivitamin Adult Tablet Orally Taking Omeprazole 20 MG Capsule Delayed Release 1 capsule Orally Once a day Taking Lisinopril 10 MG Tablet 1 tablet Orally Once a day Taking Eliquis 5 MG Tablet Orally twice a day Taking Sertraline HCl 50 MG Tablet TAKE 1 TABLET BY MOUTH EVERY DAY Oral Taking Multaq 400 MG Tablet TAKE 1 TABLET BY MOUTH TWICE A DAY WITH FOOD Oral Taking Multivitamin Adult Tablet Orally Not-Taking/PRNIbuprofen 200 MG Tablet 1 tablet with food or milk as needed Orally as needed Not-Taking/PRN Ibuprofen 200 MG Tablet 1 tablet with food or milk as needed Orally as needed DiscontinuedRosuvastatin Calcium 20 MG Tablet TAKE 1 TABLET BY MOUTH EVERY DAY Oral Medication List reviewed and reconciled with the patientDiscontinued Rosuvastatin Calcium 20 MG Tablet TAKE 1 TABLET BY MOUTH EVERY DAY Oral Medication List reviewed and reconciled with the patient * Allergies:?Morphine Sulfatey es[Allergies Verified] Objective: * Vitals:?Wt:279lbs, Ht: 72.5 in, BMI:37.32Index, BP:111/11mm Hg, Wt-k.55. * Examination: ???General Examination: ?GENERAL APPEARANCE:?pleasant, well nourished, well developed, in no acute distress.?EYES:?sclera non-icteric.?ORAL CAVITY:?mucosa moist.?NECK/THYROID:?no cervical lymphadenopathy, neck supple.?SKIN:?nonjaundiced, no spider angiomata..?HEART:?S1, S2 normal.?LUNGS:?clear to auscultation bilaterally.?ABDOMEN:?normal bowel sounds, no guarding or rigidity, no hepatosplenomegaly, no masses palpable, soft, nontender, nondistended..?EXTREMITIES:?no edema.?NEUROLOGIC:?alert and oriented.? Assessment: * Assessment: 1.?Abdominal pain, epigastri c - R10.13 (Primary)???2.?History of adenomatous polyp of colon - Z86.010???3.?Colon cancer screening - Z12.11???4.?GERD (gastroesophageal reflux disease) - K21.9??? Overall, Sofia appears wel l. In regard to his upper abdominal discomfort [...] adjustment of his medications for the procedures. Sofia was comfortable with this plan. Thank you again for allowing me to participate in Sofia's care. I shall continue to keep you advised of his progress. Plan: * Treatment: * ?Procedure: UPPER GI ENDOSCOPY* with MACsched for 08/16/24 at 11:10 am 2.?History of adenomatous polyp of colon?Procedure: COLONOSCOPY* with MAC. Do not take the El iquis for 2 full days before the procedures.sched for 08/16/24 at 11:10 ammiralax 3.?Colon cancer screening?Procedure: COLONOSCOPY* with MAC. Do not take the El iquis for 2 full days before the procedures.sched for 08/16/24 at 11:10 ammiralax 4.?GERD (gastroesophageal reflux disease)?Procedure: UPPER GI ENDOSCOPY* with MACsched for 08/16/24 at 11:10 am * Procedure Codes:?67979 UPPR GI ENDOSCOPY, [id number] DIAGNOSTIC [id number] COLORECTAL CA SCREEN DOC [id number] TOBACCO [id number] BP SCR NOT PRFRM REC REASON [id number] RCMND FLW-UP 10 YRS DOCD * Preventive Medicine:? ??Screenings:?Fall Risk Screening?Fall Risk Assessment:?No falls in the past year,?Screening:?No falls in the past year,?Assessment:?Not performed, no reason specified,?Plan of Care:?Not documented, no reason specified.? * Follow Up:?prn * * Sign off status: Completed true * Provider:?Gamaliel Abernathy MD Date:? 025 Generated for Terrence jones/Gerardo/eTransmitting on:?06/25/2024 07:56 AM EDT History and Physical Notes * Examination Category Sub-Category Detail Notes Category Not es General Examination GENERAL APPEARANCE: pleasant , well nourished, well developed, in no acute distress EYES: sclera non-icteric NECK/THYROID: no cervical lymphade nopathy, neck supple HEART: S1, S2 normal LUNGS: clear to auscultatio n bilaterally ABDOMEN: normal bowel sounds, no guarding or rigidity, no hepatosplenomegaly, no masses palpable, soft, nontender, nondistended. NEUROLOGIC: alert and oriented SKIN: nonjaundiced, no spi josep angiomata. EXTREMITIES: no edema ORAL CAVITY: mucosa moist
--- OUTSIDE RECORDS SUMMARY | 2024-06-25 07:57 | XMS_ITS | Clinical Summary ---
Author Organization [address] Address [address] [place] [address] Phone Care Team Providers Care Mba Internship Name Role Phone Wayne Huston MD Primary Care Provider [phone] Encounters Date Type Department Care Team Description 05/04/2024 Lab Requisition [facility] - Main Lab [address] [facility] [place] [address] Michael Mullins PA Urinary tract infection, site not specified from Last 3 Months Surgical History Surgery Date Site/Laterality Comments KNEE ARTHROSCOPY PROCEDURE: CT ARTHROSCOPY AID TX SPINE&/FX KNEE W/O FIXJ [...] 09/11/2003 Zoster Vaccines (1 of 2) 09/11/2003 COVID-19 Vaccine (2023-2 5 season) 2023 Abdominal Aortic Aneurysm (A AA) Screen 05/05/2024 Cholesterol Screening (Lipid Panel) 05/05/2024 Colorectal Cancer Screening: Colonoscopy 05/05/2024 Depression Screening 05/05/2024 Falls Risk Assessment 05/05/2024 Hepatitis C Screening 05/05/2024 Hypertension/CHF/CAD Annual BMP Blood Test 05/05/2024 Medicare Annual Wellness Visit 05/05/2024 Social Influencers of Health Screening 05/05/2024 Influenza Vaccine (Season Ended) 2024 RSV Immunization Adult Patie nts (1 - 1-dose 75+ series) 2028 HIB Vaccines Aged Out No longer eligi [...] Escherichia coli(A) JOSSY 05/06/2024 11:09 AM EDT [facility] ([facility]) [facility] Urine Urine specimen obtained by clean [...] Escherichia coli Trimethoprim/Sulfamethoxazole JOSSY <=20 ug/ml: Susceptible [facility] MICROBIOLOGY - GENERAL ORDE AWA Final Result Performing Organization Address City/State/[facility] Co de Phone Number [facility] ([facility]) [facility] [address] [place] [address], from Last 3 Months Insurance MEDICARE [facility] Care Teams Mba Internship Relationship Specialty Start Date End Date Wayne Huston MD [address] [place] [address] Dr [address] [place] PCP - General Internal Medicine 02/10/11
== END 2024-06-25 07:53 | disposition home or self-care (01) ==
LOC: HO.US 07:52
PROVIDERS: PCP Nurse Practitioner Family; Visit Provider Internal Medicine
DX: R10.13 Epigastric pain (principal)
CPT/HCPCS: 76700

== ENCOUNTER → 2024-06-25 07:55 | Outpatient (BNV) | payer MEDICARE, SELFPAY | PROVIDERS: PCP Nurse Practitioner Family; Visit Provider Radiology Diagnostic Radiology | DX: R16.0 Hepatomegaly, not elsewhere classified (principal) | CPT/HCPCS: 76700 ==

== ENCOUNTER 2024-07-27 08:31 | Outpatient (REF) | payer MEDICARE, SELFPAY ==
--- OUTSIDE RECORDS SUMMARY | 2024-07-27 08:50 | XMS_ITS ---
Author Organization [facility] Address [address] [place] [phone] Care Team Providers Care Chauffeur Name Role Phone MARGOT SOSA Primary Care Provider Gamaliel Haywood [phone] REASON FOR VISIT gastritis Encounters Encounter Location Date Provider Diagnosis [facility] [address] [place] [phone] 04/06/2024 Gamaliel Abernathy Plan Of Treatment Next Appt Details Provider Name:Gamaliel Abernathy , 08/16/2024 11:10:00 AM, [address] [place] [address] , [place], [place], [phone], Progress Notes * SOFIA GAYTANDOB:[birth year] (68 yo M)Acc No.[id number]:04/06/2024 Progress Notes Patient:?LUCILA SOFIA Provider:?Gamaliel Abernathy MD :1955???Age:68 Y???Sex:Male Merrill e:04/06/2024 Address:[address] [place] [address] Altaf MORAES [id number] Pcp:MARGOT SOSA Subjective: * [...] Abernathy MD Date:? 025 Generated for Terrence jones/Gerardo/Twilaitting on:?07/27/2024 08:50 AM EDT
[2024-07-27 10:21] LABS: MANUAL DIFF FLAG NO
[2024-07-27 10:29] LABS: Basophils Absolute Auto 0.1 X10*3/uL (0.0-0.2); Basophils Percent Auto 0.7 % (0-2); Eosinophils Absolute Auto 0.1 X10*3/uL (0.0-0.4); Eosinophils Percent Auto 0.7 % (0-4); Hematocrit 37.6 % (42.0-52.0); Hemoglobin 12.9 g/dl (14.0-18.0); Imm Gran Abs Auto 0.03 X10*3/uL (0.00-0.03); Imm Gran Pct Auto 0.4 % (0.0-0.4); Lymphocytes Absolute Auto 1.3 X10*3/uL (1.2-4.9); Lymphocytes Percent Auto 18.2 % (20-40); Mean Corpuscular HGB Conc 34.3 g/dl (31.0-36.0); Mean Corpuscular Hemoglobin 31.1 pg (27.0-33.0); Mean Corpuscular Volume 90.6 fL (80.0-98.0); Mean Platelet Volume 9.7 fL (9.4-12.4); Monocytes Absolute Auto 0.7 X10*3/uL (0.1-1.2); Monocytes Percent Auto 9.8 % (2-11); Neutrophils Percent Auto 70.2 % (45-73); Platelet Count 243 X10*3/uL (160-400); Red Blood Count 4.15 X10*6/uL (4.60-5.80); Red Cell Distribution Width 13.5 % (11.0-16.0); White Blood Count 7.1 X10*3/uL (4.8-10.8)
[2024-07-27 10:29] LABS: Appearance Urine Cloudy; Color Urine Yellow; Glucose Urine UA Negative (Negative); Leukocyte Esterase Urine Negative (Negative); Nitrite Urine Negative (Negative); PH 8.5 (5.0-9.0); Specific Gravity - Urine 1.015 (1.005-1.025); Urine Blood Negative (Negative); Urine Ketones Negative (Negative); Urine Protein Negative (Neg-Trace)
[2024-07-27 11:10] LABS: Alanine Aminotransferase 23 U/L (0-40); Albumin Level 4.4 g/dL (3.5-5.0); Alkaline Phosphatase 97 U/L (39-117); Anion Gap 12 (12-20); Aspartate Amino Transferase 27 U/L (5-37); Bilirubin Total 0.4 mg/dL (0.0-1.0); Blood Urea Nitrogen 13 mg/dL (9-16); Calcium 9.5 mg/dL (8.4-10.2); Carbon Dioxide 30 mmol/L (22-29); Chloride 100 mmol/L (96-108); Cholesterol 198 mg/dL (<200); Estimated Glomerular Filt Rate > 60; Glucose Fasting 91 mg/dL (60-99); Glucose Random 91 mg/dL (60-115); HDL Cholesterol 53 mg/dL (>40); LDL Cholesterol Calculated 122 mg/dL (<100); Potassium 3.9 mmol/L (3.3-5.1); Sodium 138 mmol/L (135-145); Total Protein 7.4 g/dL (6.5-8.0); Triglycerides 115 mg/dL (<150)
[2024-07-27 11:22] LABS: TSH reflex Free T4 1.42 uIU/mL (0.32-4.0)
== END 2024-07-27 08:32 | disposition home or self-care (01) ==
LOC: HO.HMGCLDS 08:31
PROVIDERS: PCP Nurse Practitioner Family; Referring Provider Nurse Practitioner Family; Visit Provider Nurse Practitioner Family
DX: I51.7 Cardiomegaly (principal); I10 Essential (primary) hypertension
CPT/HCPCS: 36415; 80048; 80053; 80061; 81003; 84443; 85025

== ENCOUNTER 2024-07-30 12:14 | Outpatient (REF) | payer MEDICARE, SELFPAY ==
--- OUTSIDE RECORDS SUMMARY | 2024-04-06 06:30 | XMS_ITS ---
Author Organization [facility] Address [address] [place] [address] Care Team Providers Care Supervisor Tank Storage Name Role Phone MARGOT SOSA Primary Care Provider Gamaliel Haywood [phone] REASON FOR VISIT gastritis Encounters Encounter Location Date Provider Diagnosis [facility] [address] [place] [phone] 04/06/2024 Gamaliel Abernathy Plan Of Treatment Next Appt Details Provider Name:Gamaliel Abernathy , 08/16/2024 11:10:00 AM, [address] [place] [address] , [place], [place], [id number], Progress Notes * SOFIA GAYTANDOB:[birth year] (68 yo M)Acc No.[id number]:04/06/2024 Progress Notes Patient: SOFIA MO Provider: Katie Abernathy MD :1955 A ge:68 Y S ex:Male Date:04/06/2024 Address:[address] [place] [address] [place]AL[place] [id number] Pcp:MARGOT SOSA Subjective: * Chief Complaints: * [...] Abernathy MD Date: 0 04/06/2024 Generated for Terrence jones/Gerardo/Escobar on: 0 07/30/2024 12:17 PM EDT
[2024-07-30 13:50] LABS: MANUAL DIFF FLAG NO
[2024-07-30 13:59] LABS: Basophils Percent Auto 0.5 % (0-2); Eosinophils Absolute Auto 0.1 X10*3/uL (0.0-0.4); Eosinophils Percent Auto 1.4 % (0-4); Hematocrit 35.1 % (42.0-52.0); Hemoglobin 12.4 g/dl (14.0-18.0); Imm Gran Abs Auto 0.02 X10*3/uL (0.00-0.03); Imm Gran Pct Auto 0.2 % (0.0-0.4); Immature Retic Fraction 11.1 % (2.3-13.4); Lymphocytes Absolute Auto 1.8 X10*3/uL (1.2-4.9); Lymphocytes Percent Auto 22.7 % (20-40); Mean Corpuscular HGB Conc 35.3 g/dl (31.0-36.0); Mean Corpuscular Hemoglobin 31.3 pg (27.0-33.0); Mean Corpuscular Volume 88.6 fL (80.0-98.0); Mean Platelet Volume 9.6 fL (9.4-12.4); Monocytes Absolute Auto 0.7 X10*3/uL (0.1-1.2); Monocytes Percent Auto 9.2 % (2-11); Neutrophils Absolute Auto 5.3 x10*3/uL (2.0-8.3); Platelet Count 248 X10*3/uL (160-400); Red Blood Count 3.96 X10*6/uL (4.60-5.80); Red Cell Distribution Width 13.4 % (11.0-16.0); Retic HGB Equivalent 35.3 pg (30.0-35.0)
[2024-07-30 14:36] LABS: Iron 61 mcg/dL (45-160); Lactate Dehydrogenase 210 U/L (118-273); Percent Iron Saturation 24 % (15-50); Total Iron Binding Capacity 249 mcg/dL (228-428); Unsaturated Iron Binding 188 ug/dL
[2024-07-30 14:52] LABS: Ferritin 129 ng/mL (20-250)
[2024-07-30 15:07] LABS: Folate 11.8 ng/mL (> or = 4.0); Vitamin B12 555 pg/mL (200-900)
== END 2024-07-30 12:15 | disposition home or self-care (01) ==
LOC: HO.HMGCLDS 12:14
PROVIDERS: PCP Nurse Practitioner Family; Visit Provider Nurse Practitioner Family
DX: D64.9 Anemia, unspecified (principal)
CPT/HCPCS: 36415; 82607; 82728; 82746; 83540; 83615; 85025; 85045

== ENCOUNTER 2024-08-16 07:47 | Day surgery (SDC) | payer MEDICARE, SELFPAY ==
[2024-08-16 06:55] VITALS: BMI 34.9
[2024-08-16 08:04] VITALS: BP 126/66; PULSE 73; RESP 18; TEMP 36.4; O2SAT 95; BMI 34.1
--- NOTE | 2024-08-16 08:24 | P.CONAN_ITS ---
Documented by User: Jessa Oliveira NP 08/12/24 09:40 HPI - Anesthesia Eval Consult details Narrative: 68yo M for Upper Endoscopy and Colonoscopy [place] [facility]. Stable at 05/2024 office visit - Cardiac MRI ordered for septal hypertrophy. Optimized for endos and ok'd to hold eliquis per workload message CAD: Stable without angina Afib: Eliquis AAA: 4.2cm, obs by cardiology Aortic stenosis: mild GERD: ppi controls VIDYA: CPAP QHS PMFSH Active Problems Active Problems: All Active Problems Asymmetric septal hypertrophy (Acute) History of total left knee replacement (Acute) Enlarged prostate (Acute) Medication reaction (Acute) Status post left knee replacement (Acute) Status post total right knee replacement (Acute) Aortic stenosis (Acute) Urinary tract infection (Acute) Status post lumbar spine surgery for decompression of spinal cord (Acute) Lumbar canal stenosis (Acute) Nerve root compression (Acute) Cauda equina syndrome (Acute) Urinary incontinence (Acute) Osteoarthritis of left knee (Acute) Lumbar back pain with radiculopathy affecting right lower extremity (Acute) Status post total knee replacement, right (Acute) Pre-op evaluation (Acute) Urinary urgency (Acute) Anxiety with depression (Acute) Osteoarthritis of right knee (Acute) Low back pain (Acute) Tubular adenoma of colon (Acute) Encounter for subsequent annual wellness visit (AWV) in Medicare patient (Acute) Abdominal discomfort (Acute) Varicose veins of left lower extremity with inflammation (Acute) Varicose veins of both lower extremities (Acute) Screening PSA (prostate specific antigen) (Acute) Major depression, recurrent, chronic (Acute) Depression (Acute) Encounter for annual wellness visit (AWV) in Medicare patient (Acute) Lower back pain (Acute) Pre-op evaluation (Acute) Thoracic aortic aneurysm (Acute) Urinary urgency (Acute) Anxiety with depression (Acute) Osteoarthritis of right knee (Acute) Low back pain (Acute) Tubular adenoma of colon (Acute) Encounter for subsequent annual wellness visit (AWV) in Medicare patient (Acute) Abdominal discomfort (Acute) Varicose veins of left lower extremity with inflammation (Acute) Varicose veins of both lower extremities (Acute) Screening PSA (prostate specific antigen) (Acute) Depression (Acute) Encounter for annual wellness visit (AWV) in Medicare patient (Acute) Lower back pain (Acute) Leg mass (Acute) Skin lesion (Acute) Anemia (Acute) Major depression, recurrent, chronic (Acute) Hypertension (Acute) CAD (coronary artery disease) (Acute) PAF (paroxysmal atrial fibrillation) (Acute) Past Medical History Medical History (Updated 07/27/24 @ 12:28 by LAUREANO Carlisle) Arthritis On anticoagulant therapy Murmur Routine medical exam Major depression, recurrent, chronic Skin cancer CAD (coronary artery disease) Hypertension Hyperlipemia PAF (paroxysmal atrial fibrillation) History of cardioversion Hx of skin cancer, basal cell PTSD (post-traumatic stress disorder) BPH (benign prostatic hyperplasia) AAA (abdominal aortic aneurysm) Anxiety and depression Anemia Diverticulosis GERD (gastroesophageal reflux disease) Sleep apnea Family History Family History Father Esophageal cancer Mother Esophageal cancer Family history of problems with anesthesia: No Surgical History Surgical History History of total right knee replacement Status post lumbar microdiscectomy Hx of blepharoplasty History of prostate surgery H/O vein stripping (~06/08/21) Hx of arthroscopy of left knee Hx of cardiac catheterization H/O umbilical hernia repair History of incision and drainage Hx of tonsillectomy History of esophagogastroduodenoscopy (EGD) History of cardiac radiofrequency ablation Hx of colonoscopy Hx of right knee surgery History of total left hip arthroplasty History of Problems with Anesthesia: Yes Social History Social History Household Members: Family Housing: House Are you a primary healthcare sales representative to a significant other at home: No Do you presently have visiting nurse or other home services: No Alcohol intake: former Comment: All counts correct Patient Tobacco Use Status: Current someday Tobacco user Tobacco use type: Cigarette Cigarettes Per Day: 2 Years Smoked: 25 e-Cigarette/Vaping Use: Never Used Second Hand Smoke Exposure: No Substance Use Type: Marijuana Have you been hit, kicked, punched, or otherwise hurt by someone within the past year? If so, by whom?: No Advance Directives: No Advance Directives Information Provided: Yes Advance Directives Date on File: 04/27/12 service: No Current occupational status: retired Cognitive needs: No Hearing needs: No Vision needs: No Meds Allergies Allergy/AdvReac Type Severity Reaction Status Date / Time morphine (MORPHINE) Allergy Severe severe Verified 06/08/24 08:34 aggitation sulfamethoxazole (From AdvReac Intermediate anxiety Verified 06/08/24 08:34 Bactrim) trimethoprim (From Bactrim) AdvReac Intermediate anxiety Verified 06/08/24 08:34 Home Medications ?Medication ?Instructions ?Recorded ?Confirmed ?Last Taken ?Type lisinopril 10 mg tablet 10 mg PO DAILY 11/24/1909/0309/01/23 History omeprazole 20 mg tablet,delayed 20 mg PO DAILY 0 08/16/24 09/02/23 History release multivitamin 1 tab PO DAILY 09/27/2009/0309/01/23 History Exam Pertinent Lab Results Pertinent Lab Results: Laboratory Tests 07/27/24 07/30/24 08:41 12:27 WBC 8.0 Hgb 12.4 L Hct 35.1 L Plt Count 248 Sodium 138 Potassium 3.9 Chloride 100 Carbon Dioxide 30 H BUN 13 Creatinine 0.79 Narrative Narrative: EKG 05/2024 normal sinus rhythm, rate 78, QTC 417 milliseconds ECHO 02/2024 Conclusions: - The left ventricular systolic function is hyperdynamic. The visually estimated ejection fraction is >70%. - Likely severe septal hypertrophy (about 1.8-1.9cm). - There is moderate calcification of the aortic valve. There is mild aortic valve stenosis. Increased stroke volume also contributes to elevated gradients. - There is mild dilatation of the ascending aorta measuring 4.20 cm. - Consider cMRI if clinically indicated. Cardiac MRI 07/2024 IMPRESSION: 1. The left ventricle is normal in size. There is moderate concentric left ventricular hypertrophy with septal predominance (14 mm). Left ventricular systolic function is normal. Quantitative LVEF 63%. No significant LV regional wall motion abnormalities. 2. The right ventricle is normal in size. Right ventricular systolic function is normal. Quantitative RVEF 50%. Normal RV wall motion. 3. The left atrium is mildly dilated. 4. Visual assessment of aortic valve consistent with mild aortic stenosis. 5. No T1 evidence of diffuse myocardial fibrosis. No T2 evidence of myocardial edema/inflammation. 6. No MRI evidence of myocardial infarction, myocarditis, infiltrative or hypertrophic cardiomyopathy. WSN: [id number] Assessment and Plan Assessment Anesthesia Assessment: Chart Reviewed Final Anesthetic Review Family History of Problems with Anesthesia: No History of Problems with Anesthesia: Yes Documented by User: Prisiclla Shabazz DO 08/16/24 08:26 [facility] Past Medical History Medical History (Updated 07/27/24 @ 12:28 by RISA Carlisle-DAYO) Arthritis On anticoagulant therapy Murmur Routine medical exam Major depression, recurrent, chronic Skin cancer CAD (coronary artery disease) Hypertension Hyperlipemia PAF (paroxysmal atrial fibrillation) History of cardioversion Hx of skin cancer, basal cell PTSD (post-traumatic stress disorder) BPH (benign prostatic hyperplasia) AAA (abdominal aortic aneurysm) Anxiety and depression Anemia Diverticulosis GERD (gastroesophageal reflux disease) Sleep apnea Family History Family History Father Esophageal cancer Mother Esophageal cancer Family history of problems with anesthesia: No Surgical History Surgical History History of total right knee replacement Status post lumbar microdiscectomy Hx of blepharoplasty History of prostate surgery H/O vein stripping (~06/08/21) Hx of arthroscopy of left knee Hx of cardiac catheterization H/O umbilical hernia repair History of incision and drainage Hx of tonsillectomy History of esophagogastroduodenoscopy (EGD) History of cardiac radiofrequency ablation Hx of colonoscopy Hx of right knee surgery History of total left hip arthroplasty History of Problems with Anesthesia: Yes (PONV) Social History Social History Household Members: Family Housing: House Are you a primary healthcare sales representative to a significant other at home: No Do you presently have visiting nurse or other home services: No Alcohol intake: former Comment: All counts correct Patient Tobacco Use Status: Current someday Tobacco user Tobacco use type: Cigarette Cigarettes Per Day: 2 Years Smoked: 25 e-Cigarette/Vaping Use: Never Used Second Hand Smoke Exposure: No Substance Use Type: Marijuana Have you been hit, kicked, punched, or otherwise hurt by someone within the past year? If so, by whom?: No Advance Directives: No Advance Directives Information Provided: Yes Advance Directives Date on File: 04/27/12 service: No Current occupational status: retired Cognitive needs: No Hearing needs: No Vision needs: No Meds Allergies Allergy/AdvReac Type Severity Reaction Status Date / Time morphine (MORPHINE) Allergy Severe severe Verified 06/08/24 08:34 aggitation sulfamethoxazole (From AdvReac Intermediate anxiety Verified 06/08/24 08:34 Bactrim) trimethoprim (From Bactrim) AdvReac Intermediate anxiety Verified 06/08/24 08:34 Home Medications ?Medication ?Instructions ?Recorded ?Confirmed ?Last Taken ?Type lisinopril 10 mg tablet 10 mg PO DAILY 11/24/19 07/0 09/0309/01/23 History omeprazole 20 mg tablet,delayed 20 mg PO DAILY 0 08/16/24 09/02/23 History release multivitamin 1 tab PO DAILY 09/27/20 070 09/0309/01/23 History Exam Exam Date and Time: 08/16/24 0820 Height,Weight and Vital Signs: Height 6 ft 2 in Weight 120.656 kg Vital Signs Temperature 97.5 F 08/16/24 08:04 Pulse Rate 73 08/16/24 08:04 Respiratory Rate 18 08/16/24 08:04 Blood Pressure 126/66 08/16/24 08:04 Pulse Oximetry 95 08/16/24 08:04 Oxygen Delivery Method Room Air 08/16/24 08:04 Temperature 97.5 F 08/16/24 08:04 Pulse Rate 73 08/16/24 08:04 Respiratory Rate 18 08/16/24 08:04 Blood Pressure 126/66 08/16/24 08:04 Pulse Oximetry 95 08/16/24 08:04 Oxygen Delivery Method Room Air 08/16/24 08:04 Airway Mallampati Class: II TM Dist: >3cm Neck ROM: Full Denture: Upper Heart: S1S2 Lungs: CTAB Assessment and Plan Assessment Anesthesia Assessment: Anesthesia Plan Discussed and Chart Reviewed Final Anesthetic Review Family History of Problems with Anesthesia: No History of Problems with Anesthesia: Yes (PONV) NPO: Yes ASA Class: III Final Preanesthetic Review: No Changes in Pt Med Stat, Meds/Allgs Chart Reviewed, Consent Obtained/Reviewed and Anes Risks/Benef Reviewed Patient Risk: Intermediate Procedure Risk: Low Anesthetic Plan Anesthetic Plan: MAC: and Agree w/ Assess. and Plan Disposition: Standard PACU
[2024-08-16] MEDS: Lactated Ringers 1,000 ML 100 ML IVCONT (08:25)
[2024-08-16 10:50] VITALS: BP 115/71; PULSE 65; RESP 16; TEMP 36.6; O2SAT 97
--- NOTE | 2024-08-16 10:55 | P.BOP_ITS ---
Brief Operative Note Date of Service: 08/16/24 Pre-op diagnosis: Abdominal pain, Screening Post-op diagnosis: other (Hiatal hernia, Colon polyps, Limited colon prep) Procedure: EGD, Colonoscopy to the cecum with cold snare polypectomy x 3 Surgeon: Gamaliel Abernathy MD Anesthesia: MAC Was an Instrumentation Tech used for this Procedure?: No Estimated blood loss (mL): 2.0 Pathology: other (A. Ascending colon polyp B. Transverse colon polyps) Condition: stable Disposition: PACU
[2024-08-16 11:00] VITALS: BP 151/74; PULSE 70; RESP 16; TEMP 36.6; O2SAT 97
--- NOTE | 2024-08-16 11:46 | OP_ITS ---
DATE OF SERVICE: 08/16/2024 SURGEON: Gamaliel Abernathy MD INDICATIONS: The patient presents for evaluation of intermittent abdominal discomfort, personal history of colon polyps, and colorectal cancer screening. Full consent has been obtained from him for this, including risks of bleeding and perforation. PREOPERATIVE DIAGNOSIS: POSTOPERATIVE DIAGNOSIS: Abdominal discomfort, colorectal cancer screening, personal history of colon polyps, family history of colon cancer, small hiatal hernia, colon polyps, limited bowel prep, diverticulosis and internal hemorrhoids. PROCEDURE PERFORMED: Esophagogastroduodenoscopy and colonoscopy to the cecum with cold snare polypectomies x3. ESTIMATED BLOOD LOSS: COMPLICATIONS: ANESTHESIA: Monitored anesthesia care. ASSISTANTS: SPECIMENS: PREOPERATIVE DIAGNOSES: Abdominal discomfort, colorectal cancer screening, personal history of colon polyps, family history of colon cancer. DESCRIPTION OF PROCEDURE: The patient was placed in left lateral decubitus position. The Olympus video gastroscope was passed in the posterior oropharynx and upper esophagus under direct vision. The scope was passed slowly into the distal esophagus. The gastroesophageal junction appeared at 38 cm. This area appeared normal without any sign of esophagitis nor Murphy esophagus. There was a small hiatal hernia. The scope was advanced to pylorus. The duodenum was cannulated to the descending portion. The duodenum including the bulb appeared normal without mass or ulceration. The scope was withdrawn back to the stomach. The gastric antrum and body appeared normal with good peristalsis. The scope was retroflexed visualizing the proximal stomach carefully, which appeared normal, without any sign of mass or ulceration. The scope was straightened and withdrawn back to the esophagus. The esophageal mucosa appeared normal. The scope was withdrawn from the patient. He was turned around for the colonoscopy. The digital rectal exam revealed no abnormalities. The Olympus video pediatric colonoscope was entered into the rectum, advanced to the cecum. Advancement to the cecum was difficult and required abdominal wall pressure. Once in the cecum, I did identify normal-appearing cecal pouch with appendiceal orifice and a normal-appearing ileocecal valve. The entire cecum and ileocecal valve appeared normal. The scope was then slowly withdrawn assessing all mucosal surfaces carefully. Preparation in the ascending and transverse colon was good, but preparation in the descending, sigmoid colon, and rectum was limited due to poor prep. In the proximal ascending colon, there was an approximately 5 or 6 mm polyp, which was removed by cold snare polypectomy and recovered by suction. In the transverse colon, there were 2 flat, but raised approximately 5 or 6 mm polyps, which were both removed by cold snare polypectomy and recovered by suction. All of the above-mentioned polypectomy sites appeared clean, without any sign of residual polyp nor significant bleeding. I did not visualize any other polyps, colitis, nor angiodysplasias, although again, preparation was limited in the more distal colon and rectum. Some diverticulosis was noted. The scope was retroflexed in the rectum visualizing some internal hemorrhoids, but again view was limited. The scope was straightened and withdrawn from the patient. He tolerated both procedures well and was returned to the recovery area in stable condition. IMPRESSION: 1. Small hiatal hernia. 2. Colon polyps. 3. Diverticulosis. 4. Internal hemorrhoids. 5. Limited colon prep. PLAN: The results of the pathology will be checked. He was advised to continue his daily omeprazole. He was advised to stay off all aspirin and NSAIDs since he is on Eliquis. He was advised to resume his Eliquis in 48 hours. I will plan to have him undergo repeat colonoscopy within the year with a 2-day prep given his previous history of polyps, family history of colon cancer, and today's findings. This has been discussed with his . MD VERITO Valderrama/TIFFANY / [phone] MTDKhloe
== END 2024-08-16 11:37 | disposition home or self-care (01) ==
PROVIDERS: PCP Nurse Practitioner Family; Visit Provider Internal Medicine
PROC: (CPT 45385; principal; 2024-08-16 09:20)
DX: Z12.11 Encounter for screening for malignant neoplasm of colon (principal); Z86.0101 Personal history of adenomatous and serrated colon polyps; Z80.0 Family history of malignant neoplasm of digestive organs; D12.2 Benign neoplasm of ascending colon; D12.3 Benign neoplasm of transverse colon; K57.30 Diverticulosis of large intestine without perforation or abscess without bleeding; K64.8 Other hemorrhoids; R10.13 Epigastric pain; K21.9 Gastro-esophageal reflux disease without esophagitis; K44.9 Diaphragmatic hernia without obstruction or gangrene; I10 Essential (primary) hypertension; I48.0 Paroxysmal atrial fibrillation; G47.30 Sleep apnea, unspecified; Z99.89 Dependence on other enabling machines and devices; Z79.01 Long term (current) use of anticoagulants; Z79.899 Other long term (current) drug therapy; Z98.890 Other specified postprocedural states; Z87.891 Personal history of nicotine dependence
CPT/HCPCS: 45385; 43235; 88305; J2704

== ENCOUNTER 2024-11-09 10:50 | Outpatient (REF) | payer MEDICARE, SELFPAY ==
--- OUTSIDE RECORDS SUMMARY | 2024-03-16 07:10 | XMS_ITS ---
Author Organization [facility] Address [address] [place] [address] Care Team Providers Care Huc Ob Name Role Phone MARGOT SOSA Primary Care Provider Gamaliel Haywood [phone] REASON FOR VISIT Patient presents today for gastritis Encounters Encounter Location Date Provider Diagnosis [facility] [address] [place] [phone] 03/16/2024 Gamaliel Abernathy Plan Of Treatment No Information Progress Notes * SOFIA GAYTANDOB:[birth year] (69 yo M)Acc No.[id number]:03/16/2024 Progress Notes Patient: SOFIA MO Provider: Katie Abernathy MD :1955 A ge:68 Y S ex:Male Date:03/16/2024 Address:[address] [place], [place] [id number] Pcp:MARGOT SOSA Subjective: * Chief Complaints: * 1 . Patient presents today for gastritis. * Medical History: Objective: * Vitals: Assessment: Plan: * Treatment: * * The named appointment provid er may or may not be the originator of this progress note, and it is not deemed complete until electronically signed by the appointment provider. Sign off status: Pending * Provider: Katie Abernathy MD Date: 0 03/16/2024 Generated for Printi ng/Faxing/eTransmitting on: 0 11/09/2024 12:12 PM EDT
--- OUTSIDE RECORDS SUMMARY | 2024-04-06 06:30 | XMS_ITS ---
Author Organization [facility] Address [address] [place] [address] Care Team Providers Care Principal Quality Engineer Name Role Phone MARGOT SOSA Primary Care Provider Gamaliel Haywood [phone] REASON FOR VISIT gastritis Encounters Encounter Location Date Provider Diagnosis [facility] [address] [place] [address] 04/06/2024 Gamaliel Abernathy Plan Of Treatment No Information Progress Notes * SOFIA GAYTANDOB:[birth year] (69 yo M)Acc No.[id number]:04/06/2024 Progress Notes Patient: SOFIA MO Provider: Katie Abernathy MD :1955 A ge:68 Y S ex:Male Date:04/06/2024 Address:[address] [place] [address] [id number] Pcp:MARGOT SOSA Subjective: * Chief Complaints: * 1 . Gastritis. * Medical History: Objective: * Vitals: Assessment: Plan: * Treatment: * * The named appointment provid er may or may not be the originator of this progress note, and it is not deemed complete until electronically signed by the appointment provider. Sign off status: Pending * Provider: Katie Abernathy MD Date: 0 04/06/2024 Generated for Printi ng/Faxing/eTransmitting on: 0 11/09/2024 12:11 PM EDT
--- OUTSIDE RECORDS SUMMARY | 2024-08-16 05:20 | XMS_ITS ---
Author Organization [facility] Address [address] [place] [address] Care Team Providers Care Chemical Process Equipment Operator Name Role Phone MARGOT SOSA Primary Care Provider Gamaliel Haywood [phone] REASON FOR VISIT screening,hx polyps,gerd, epigastric pain Encounters Encounter Location Date Provider [place] [facility] [address] [place] [phone] 08/16/2024 Gamaliel Abernathy Plan Of Treatment No Information Progress Notes * SOFIA GAYTANDOB:[birth year] (69 yo M)Acc No.[id number]:08/16/2024 EGD and COL/MAC Patient: SOFIA [place] Provider: Katie Abernathy MD :1955 A ge:68 Y S ex:Male Date:08/16/2024 Address:[address] [place] [address] JO[place] ELIZALDE [id number] Pcp:MARGOT SOSA Subjective: * Chief Complaints: * 1 . Screening,hx polyps,gerd, epigastric pain. * Medical History: Objective: * Vitals: Assessment: Plan: * Treatment: * * The named appointment provid er may or may not be the originator of this progress note, and it is not deemed complete until electronically signed by the appointment provider. Sign off status: Pending * Provider: Katie Abernathy MD Date: 0 08/16/2024 Generated for Terrence jones/Gerardo/eTransmitting on: 11/09/2024 12:12 PM EDT
--- OUTSIDE RECORDS SUMMARY | 2024-08-22 20:23 | XMS_ITS ---
Author Organization [facility] Address [address] [place] [phone] Care Team Providers Care Post Secondary Professional Name Role Phone MARGOT SOSA Primary Care Provider Gamaliel Haywood [phone] REASON FOR VISIT Needs a colon with a 2 day prep Encounters Encounter Location Date Provider Diagnosis [facility] [address] [place] [phone] 08/23/2024 Gamaliel Abernathy Plan Of Treatment No Information Progress Notes * SOFIA GAYTANDOB:[birth year] (69 yo M)Acc No.[id number]:08/23/2024 Patient: SOFIA MO :1955 A ge:68 Y S ex:Male Address:[address] [place] [address] [place] [phone] Subjective: * Chief Complaints: * N eeds a colon with a 2 day prep * Medical History: * Surgical History: * Hospitalization/Major Diagno stic Procedure: * Medications: Objective: * Vitals: * Physical Examination: Assessment: Plan: * Treatment: * Procedure Codes: * * Date:
--- OUTSIDE RECORDS SUMMARY | 2024-11-09 12:11 | XMS_ITS | Encounter Summary ---
Author Organization [facility] Address [address] [place] [address] Care Team Providers Care Steel Plate Printer Name Role Phone Wayne Huston MD Primary Care Provider [phone] Encounter Details Date Type Department Care Team (Late st Contact Info) Description 05/04/2024 Lab Requisition [facility] Main Lab [address] [facility] [place] [phone] Michael Mullins, PA [address] [place], [place] [id number] Urinary tract infection, site not specified Social [...] Escherichia coli(A) JOSSY 05/06/2024 11:09 AM EDT [facility] Urine Urine specimen obtained by [...] Escherichia coli Trimethoprim/Sulfamethoxazole JOSSY <=20 ug/ml: Susceptible [facility] MICROBIOLOGY - GENERAL SVETA AWA Final Result [facility] LAB [address] [place] [address], documented in this encounter Visit Diagnoses Diagnosis Urinary tract infection, site not specified documented in this encounter Care Teams Steel Plate Printer Relationship Specialty Start Date End Date Wayne Huston MD [address] [place] [address] Dr [address] [place] [address] PCP - General Internal Medicine 02/10/11 documented as of this encounter
--- OUTSIDE RECORDS SUMMARY | 2024-11-09 12:11 | XMS_ITS | Patient Health Record ---
[facility] Organization [facility] Address [address] [place] [address] Care Team Providers Care Anesthesiologist/Physician Name Role Phone Vijay Biggs Primary Care Provider Unav ailable Black, Karime Unavailable [phone] Allergies Allergen (clinical drug ingredient) Drug/Non Drug Allergy documented on EMR Reaction Allergy Type Onset Date Status morphine Morphine freak out Drug Allergy Active Reason For Referral No Information Medications Medication SIG (Take, Route, Frequency, Duration) Notes Start Date End Date Status Lisinopril 10 MG 1 tablet Orally Once a day; Duration: 30 day(s) Active Rosuvastatin Calcium 20 MG Orally Once a day Active eliquis 5 mg Active Omeprazole 10 MG 2 capsules Orally On ce a day; Duration: 30 day(s) Active Metoprolol-HCTZ ER U nknown Furosemide Unknown Ciclopirox Olamine 0.77% external Apply to effected areas twice a day; Duration: 30 days 11/18/2013 Unknown predniSONE 12mg taper for 9 days Active Ciclopirox Olamine 0.77 % 1 application to affected area Externally to the bottom of the feet Twice a day; Duration: 30 days 02/19/2018 Active Multaq 400 MG [...] X ray : Foot, left 3V 06/20/2011 [id number] NAIL, 1-5 11/19/2012 [id number] NAIL, 1-5 11/18/201313432,B8501-TXI TENDON SHEATH/LIGAMENT 1 50,L9320-IMH TENDON SHEATH/LIGAMENT 0 06/20/201118138,K4616-HIP TENDON SHEATH/LIGAMENT 1 Insurance Providers Payer Name Payer Address Payer Phone Subscriber Number Group Number Insured Name Patient Relationship to Insured Coverage Start Date Coverage End Date [employer] [address] [place] [address] [id number] Marv Minaya Self - patient is the insured Medical (General) History Medical History History ICD Code neuropathy reflux mumps measles high blood pressure chicken pox back, hip, knee pain Arthritis Hypertension Heart Disease measles mumps chicken Pox bone implants and screws Surgical History Surgery Date(Month/Year) knee surgery neck surgery Hip replacement 09/2015 ablation 2013 Hospitalization History Reason Date(Month/Year) [facility], 3 days, CHF 04/2012
--- OUTSIDE RECORDS SUMMARY | 2024-11-09 12:12 | XMS_ITS | Clinical Summary ---
Author Organization [address] Address [address] [place] [address] Phone Care Team Providers Care Statement Clerk Name Role Phone Wayne Huston MD Primary Care Provider [phone] Surgical History Surgery Date Site/Laterality Comments KNEE ARTHROSCOPY PROCEDURE: [place] ARTHROSCOPY AID [place] SPINE&/FX KNEE W/O FIXJ [...] Health Maintenance Due Date Last Done Comments Colorectal Cancer Screening: Colonoscopy 1955 DTaP,Tdap,and Td Vaccines (1 - Tdap) 1972 Pneumococcal Vaccine: 50+ Ye ars (1 of 1 - PCV) 09/11/2003 Zoster Vaccines (1 of 2) 09/11/2003 Depression Screening 02/11/2024 Abdominal Aortic Aneurysm (A AA) Screen 05/05/2024 Cholesterol Screening (Lipid Panel) 05/05/2024 Falls Risk Assessment 05/05/2024 Hepatitis C Screening 05/05/2024 Hypertension/CHF/CAD Annual BMP Blood Test 05/05/2024 Medicare Annual Wellness Visit 05/05/2024 Social Influencers of Health Screening 05/05/2024 COVID-19 Vaccine (1 - 2023-2 5 season) 2024 Influenza Vaccine (#1) 2024 RSV Immunization Adult Patie nts (1 [...] on patient's age to complete this topic Insurance MEDICARE [facility] Care Teams Statement Clerk Relationship Specialty Start Date End Date Wayne Huston MD [address] [place] [address] [place] PCP - General Internal Medicine 02/10/11
--- OUTSIDE RECORDS SUMMARY | 2024-11-09 12:13 | XMS_ITS | Patient Health Record ---
Author Organization [facility] Address [address] [place] [address] Care Team Providers Care Solar Sales Energy Advisor Name Role Phone MARGOT JARAMILLO Primary Care Provider Gamaliel Haywood [phone] Allergies Allergen (clinical drug ingredient) Drug/Non Drug Allergy documented on EMR Reaction Allergy Type Onset Date Status morphine Morphine Sulfate Unknown Drug Allergy Active Results Component Value Reference Range Notes US abdomen complete (Not yet reviewed by provider) Interpretation: Performing Lab: Notes/Report: [address] [address] Ultrasound Report Signed Patient: Marv Gaytan MR#: [id number] : 1955 Acct:[id number] Age/Sex: 68 / M ADM Date: 06/25/24 Loc: HO.US Attending Dr: Gamaliel Abernathy MD Ordering Physician: Gamaliel Abernathy MD Date of Service: 06/25/24 Procedure(s): US abdomen complete Accession Number(s): [id number] cc: Margot Jaramillo NATIONAL VAN OWNER OPERATOR-; Gamaliel Abernathy MD EXAMINATION: US ABDOMEN HISTORY: ABDOMINAL PAIN EPIGASTRIC TECHNIQUE: Real-time grayscale ultrasound imaging of the abdomen was performed and images were reviewed. COMPARISON: Correlation is made with a renal ultrasound dated 06/13/[address] of the abdomen dated 07/13/2023. FINDINGS: Liver: The right lobe of the liver measures 17.0 cm in size. The left lobe of the liver is poorly visualized. The liver demonstrates mildly increased echotexture, consistent with steatosis. No focal mass or intrahepatic biliary ductal dilatation is identified. There is normal hepatopedal flow in the portal vein. Gallbladder and biliary tree: The gallbladder is unremarkable, without evidence of calculi, wall thickening, or pericholecystic fluid. There is no sonographic Jeter sign. The common bile duct measures 7 mm in diameter. Kidneys: The right kidney measures 14.3 cm in length. The left kidney measures 13.2 cm in length. There is a 7 x 4 x 6 mm cyst at the lower pole of the left kidney. The kidneys are otherwise unremarkable, without evidence of solid masses, hydronephrosis, or calculi. Pancreas: The pancreas is obscured by bowel gas. Spleen: The spleen is normal in size and contour, measuring 12.5 cm in length. Abdominal aorta and inferior vena cava: The abdominal aorta is ectatic measuring up to 2.9 cm in diameter. There is no free fluid in the abdomen. US/US abdomen complete IMPRESSION: 1. Hepatomegaly and mild hepatic steatosis. 2. Ectatic abdominal aorta measuring up to 2.9 cm in diameter. Electronically signed by: Gamaliel Garcia MD 06/25/2024 08:48 AM EDT Dictated By: Gamaliel Garcia MD Signed By: <Electronically signed by Gamaliel Garcia MD in OV> 06/25/2448 DD/ 08 TD/TT: 06/25/24 08 Cyber Defense Analyst: Pathology (Not yet reviewed by provider) Interpretation: Performing Lab:[facility], [address] [place] [id number] Notes/Report: Reason For Referral No Information Medications Medication [...] Status Risk Notes Problem Colon cancer screening (204183729) Colon cancer screening (Z12.11) Active confirmed Problem 970095856 Encounter for screening for malignant neoplasm of colon (Z12.11) Active confirmed Problem 581817691 History of adenomatous polyp of colon (Z86.010) Active confirmed Problem Epigastric pain (62906076) Abdominal pain, epigastric (R10.13) Active confirmed Problem 615503087 Gastroesophageal reflux disease without esophagitis (K21.9) Active confirmed Problem 982866408450508 Preprocedural examination (Z01.818) Active confirmed Problem Gastroesophageal reflux disease (297938792) GERD (gastroesophageal reflux disease) (K21.9) Active confirmed Problem 045278589 Long-term (current) use of anticoagulants, INR goal 2.0-3.0 (Z79.01) Active confirmed Vital Signs Blood pressure diastolic 11 mm Hg 05/18/2024 Height 72.5 in 05/18/2024 Blood pressure systolic 111 mm Hg 05/18/2024 Weight 279 lbs 05/18/2024 BMI 37.32 kg/m2 05/18/2024 Procedures Procedure Date Ordered Date Performed Result Body Sit e UPPER GI ENDOSCOPY 05/18/2024 N/A COLONOSCOPY 05/18/2024 N/A Encounters Encounter Location Date Provider Diagnosis [facility] [address] [place] [id number] 08/16/2024 Gamaliel Abernathy [facility] [address] [place] [phone] 05/18/2024 Gamaliel Abernathy Abdominal pain, epigastric R10.13 ; History of adenomatous polyp of colon Z86.010 ; Colon cancer screening Z12.11 and GERD (gastroesophageal reflux disease) K21.9 [facility] [address] [place] [phone] 08/23/2024 Gamaliel Abernathy [facility] [address] [place] [phone] 03/16/2024 [facility] [address] [place] [address] 04/07/2024 Gamaliel Abernathy Assessments Encounter Date Diagnosis [...] Date UPPER GI ENDOSCOPY 05/18/2024 COLONOSCOPY 05/18/2024 Pathology 08/16/2024 US abdomen complete 06/25/2024 US abdomen complete 05/18/2024 Future Test Test Name Order Date COLONOSCOPY 07/06/2014 COLONOSCOPY 09/23/2019 Insurance Providers Payer Name Payer Address Payer Phone Subscriber Number Group Number Insured Name Patient Relationship to Insured Coverage Start Date Coverage End Date MEDICARE OF [place] [address] [place] [address] [phone] [id number] MARV GAYTAN Self - patient is the insured 9 [employer] CLAIMS [address] [place] [address] [id number] MARV GAYTAN Self - patient is the insured Medical (General) History Medical History History ICD Code Colon polyps--tubular adenomas removed i n 1994, 2003, and 03/2009 A.fib--cardiac ablation--Dr. Palma; pippa Schuster Denies NH,DM,CVA,Lung disease,renal dise ase Sleep apnea-uses a CPAP [...]
[2024-11-09 13:18] LABS: MANUAL DIFF FLAG NO
[2024-11-09 13:40] LABS: Hematocrit 37.7 % (42.0-52.0); Hemoglobin 13.4 g/dl (14.0-18.0); Imm Gran Abs Auto 0.02 X10*3/uL (0.00-0.03); Imm Gran Pct Auto 0.3 % (0.0-0.4); Lymphocytes Absolute Auto 1.8 X10*3/uL (1.2-4.9); Mean Corpuscular HGB Conc 35.5 g/dl (31.0-36.0); Mean Corpuscular Hemoglobin 31.3 pg (27.0-33.0); Mean Corpuscular Volume 88.1 fL (80.0-98.0); NRBC Abs Auto 0.000 X10*3/uL (0.0-0.012); NRBC Pct Auto 0.0 /100WBC (0.0-0.2); Platelet Count 241 X10*3/uL (160-400); Red Blood Count 4.28 X10*6/uL (4.60-5.80); White Blood Count 7.9 X10*3/uL (4.8-10.8)
[2024-11-09 15:03] LABS: Alanine Aminotransferase 20 U/L (0-40); Albumin Level 4.4 g/dL (3.5-5.0); Alkaline Phosphatase 87 U/L (39-117); Anion Gap 12 (12-20); Aspartate Amino Transferase 27 U/L (5-37); Blood Urea Nitrogen 9 mg/dL (9-16); Calcium 9.4 mg/dL (8.4-10.2); Carbon Dioxide 28 mmol/L (22-29); Chloride 101 mmol/L (96-108); Estimated Glomerular Filt Rate > 60; Potassium 3.9 mmol/L (3.3-5.1); Sodium 137 mmol/L (135-145); Total Protein 7.4 g/dL (6.5-8.0)
== END 2024-11-09 10:51 | disposition home or self-care (01) ==
LOC: HO.HMGCLDS 10:50
PROVIDERS: PCP Nurse Practitioner Family; Visit Provider Nurse Practitioner Family
DX: I10 Essential (primary) hypertension (principal)
CPT/HCPCS: 36415; 80053; 84443; 85025

== ENCOUNTER 2025-01-10 09:36 | Outpatient (AMB) | payer MEDICARE, SELFPAY ==
[2025-01-10 09:51] VITALS: BP 122/68; PULSE 69; TEMP 36.4; O2SAT 96; BMI 34.9
--- NOTE | 2025-01-10 09:51 | AM.OFFWIN_ITS ---
Intake Vital Signs 01/10/25 09:51 Height 6 ft 2 in Weight 272 lb BMI 34.9 BP 122/68 Blood Pressure Location Lt brachial Position Sitting Pulse 69 Pulse Source Pulse Oximeter Temp 97.6 F Temp Source Oral Pulse Oximetry (%) 96 Oxygen Delivery Method Room Air Intake Visit Reasons: EP right eye pain itchy stings Intake Note: Patient presents c/o right eye pain, itching, burning, red x5 days. Patient Tobacco Use Status: Current someday Tobacco user Allergies morphine (MORPHINE) Allergy (Severe, Verified 01/10/25 09:53) severe aggitation sulfamethoxazole (From Bactrim) Adverse Reaction (Intermediate, Verified 01/10/25 09:53) anxiety trimethoprim (From Bactrim) Adverse Reaction (Intermediate, Verified 01/10/25 09:53) anxiety PFSH Medical History (Updated 01/10/25 @ 10:25 by Hodan Noel NP) Conjunctivitis Microscopic hematuria Arthritis On anticoagulant therapy Murmur Routine medical exam Major depression, recurrent, chronic Skin cancer CAD (coronary artery disease) Hypertension Hyperlipemia PAF (paroxysmal atrial fibrillation) History of cardioversion Hx of skin cancer, basal cell PTSD (post-traumatic stress disorder) BPH (benign prostatic hyperplasia) AAA (abdominal aortic aneurysm) Anxiety and depression Anemia Diverticulosis GERD (gastroesophageal reflux disease) Sleep apnea Surgical History History of total right knee replacement Status post lumbar microdiscectomy Hx of blepharoplasty History of prostate surgery H/O vein stripping (~06/08/21) Hx of arthroscopy of left knee Hx of cardiac catheterization H/O umbilical hernia repair History of incision and drainage Hx of tonsillectomy History of esophagogastroduodenoscopy (EGD) History of cardiac radiofrequency ablation Hx of colonoscopy Hx of right knee surgery History of total left hip arthroplasty Family History Father Esophageal cancer Mother Esophageal cancer Social History Household Members: Family Housing: House Are you a primary care support representative to a significant other at home: No Do you presently have visiting nurse or other home services: No Alcohol intake: former Comment: All counts correct Patient Tobacco Use Status: Current someday Tobacco user Tobacco use type: Cigarette Cigarettes Per Day: 2 Years Smoked: 25 e-Cigarette/Vaping Use: Never Used Second Hand Smoke Exposure: No Substance Use Type: Marijuana Advance Directives Date on File: 04/27/12 service: No Current occupational status: retired Cognitive needs: No Hearing needs: No Vision needs: No Review of Systems Const All systems reviewed & are unremarkable except as noted in HPI and below Physical Exam Vital Signs: Last Vital Signs Temp 97.6 F 01/10/25 09:51 Pulse 69 01/10/25 09:51 BP 122/68 01/10/25 09:51 Pulse Ox 96 01/10/25 09:51 Oxygen Delivery Method Room Air 01/10/25 09:51 BMI result Body Mass Index 34.9 Const General: no acute distress Nutritional Appearance: obese Orientation/consciousness: patient oriented x3 Eyes Other: Right Conjunctival injection noted. No visible discharge. No eyelid edema or crusting. No foreign body appreciated. Pupils equal, round, reactive to light. Extraocular movements intact without pain. No corneal opacity seen. Conjunctivae: conjunctival abnormal right conjunctival injection Corneas: corneas normal Pupils: Equal, round and reactive pupils present EOM: EOMs intact bilaterally Direct Ophthalmoscopy: normal light reflex Resp Effort & Inspection: normal respiratory effort Cardio Heart sounds: S1 normal heart sound present and S2 normal heart sound present Neuro General: patient oriented x3 Cranial nerves: Yes Equal, round and reactive pupils present Assessment & Plan Assessment & Plan (1) Conjunctivitis: Code(s): H10.9 - Unspecified conjunctivitis Plan: Acute conjunctivitis, right eye ? likely allergic vs irritant etiology given itching and burning, and absence of purulent discharge. Recommended cool compresses for comfort. Avoid eye rubbing. Encouraged good hand hygiene. Ordered Cipro Eye drops for 7 days. Follow up with your Eye doctor. Medications: New ciprofloxacin HCl 0.3% 1 drp into the eye(s) Put 1-2 drops in the affected eye every 2hr up to 8 times per day for 2 days; then 4 times per day for 5 days.; 5 mL 0RF H10.9 - Unspecified conjunctivitis Coding Level of Care Code Est Pt Level 4 (91792) Diagnoses Conjunctivitis H10.9 Time Spent (min) 20
--- OUTSIDE RECORDS SUMMARY | 2025-01-10 11:21 | XMS_ITS | Encounter Summary ---
Author Organization [facility] Address [address] [place] [address] Care Team Providers Care Crew Trainer Name Role Phone Wayne Huston MD Primary Care Provider Encounter Details Date Type Department Care Team (Late st Contact Info) Description 05/04/[address] [facility] [address] [facility] [place] [phone] Michael Mullins, PA [address] [place], [place] [id number] Urinary tract infection, site not specified Social [...] Escherichia coli(A) JOSSY 05/06/2024 11:09 AM EDT [facility] Urine Urine specimen obtained by [...] Escherichia coli Trimethoprim/Sulfamethoxazole JOSSY <=20 ug/ml: Susceptible [facility] MICROBIOLOGY - GENERAL SVETA AWA Final Result [facility] LAB [address] [place] [address], documented in this encounter Visit Diagnoses Diagnosis Urinary tract infection, site not specified documented in this encounter Care Teams Crew Trainer Relationship Specialty Start Date End Date Wayne Huston MD [address] [place] [address] [address] [place] [address] PCP - General Internal Medicine 02/10/11 documented as of this encounter
--- OUTSIDE RECORDS SUMMARY | 2025-01-10 11:21 | XMS_ITS | Clinical Summary ---
Author Organization [address] Address [address] [place] [address] Phone Care Team Providers Care Valuer Name Role Phone Wayne Huston MD Primary Care Provider [phone] Surgical History Surgery Date Site/Laterality Comments KNEE ARTHROSCOPY PROCEDURE: [place] ARTHROSCOPY AID [place] SPINE&/FX KNEE W/O FIXJ [...] Health Screening 05/05/2024 COVID-19 Vaccine (1 - 2024-2 6 season) 2024 Influenza Vaccine (#1) 2024 RSV [...] age to complete this topic Insurance MEDICARE [facility] Care Teams Valuer Relationship Specialty Start Date End Date Wayne Huston MD [address] [place] [address] [place] PCP - General Internal Medicine 02/10/11
== END 2025-01-10 10:48 | disposition home or self-care (01) ==
PROVIDERS: PCP Nurse Practitioner Family; Visit Provider Nurse Practitioner Family
DX: H10.9 Unspecified conjunctivitis (principal)

== ENCOUNTER → 2025-01-10 09:36 | Outpatient (BNVA) | payer MEDICARE, SELFPAY | PROVIDERS: PCP Nurse Practitioner Family; Visit Provider Nurse Practitioner Family | DX: H10.9 Unspecified conjunctivitis (principal) | CPT/HCPCS: 99212 ==